=== PATIENT | male | born 1975 | race Caucasian/White ===

== ENCOUNTER 2016-07-02 23:08 | Inpatient (IN) | payer BC, OTHER ==
[~2016-07-02] VITALS: Ht 175.3 cm; Wt 91.0 kg
[~2016-07-02 23:08] MED LIST: DIPH25CA65 PO; MCRK20 PO; NRN/600 PO; OXYC20TA32 PO; OXYC60TA8 PO; RCPAV2 IV; SNK PO; VNCE1000 IV
[2016-07-03 00:19] LABS: BASO % 0.2 %; BASO ABS # 0.01 K/uL (0-0.2); EOS % 5.7 %; HEMATOCRIT 33.3 % (42-52); IG% 0.2 %; LYMPH % 20.5 %; LYMPH ABS # 0.94 K/uL (1.2-3.4); MEAN CELL VOLUME 71.3 fL (80-100); MEAN CORPUSCULAR HEMOGLOBIN 21.8 pg (25-34); MEAN CORPUSCULAR HGB CONC 30.6 g/dl (32-36); MEAN PLATELET VOLUME 9.8 fL (7.4-10.4); MONO % 0.9 %; NEUT % 72.5 %; PLATELET COUNT 281 K/uL (130-400); RED BLOOD COUNT 4.67 M/uL (4.7-6.1); WHITE BLOOD COUNT 4.58 K/uL (4.8-10.8)
[2016-07-03] MEDS ORDERED: SENN-61 PO (00:29)
--- NOTE | 2016-07-03 00:29 | EMERGENCY ROOM VISIT NOTE ---
History Report prepared by Tasneem: Anderson Villalobos Under the Supervision of: Dr. Isabel Ochoa D.O. First contact with patient: 23:33 Chief Complaint: INFECTION Stated Complaint: RT SHOULDER INFECTION,NAUSEA,CHILLS,FEVER Nursing Triage Summary: right shoulder infection. redness, pain. hx of abcess to R shoulder. currently on IV abx. had IV Vancomycin at 1230 today. second abx at 0030 last night. took Tylenol for fever today. pt also took Gabapentin 600 TID today. History of Present Illness The patient is a 40 year old male who presents to the Emergency Room with complaints of constant pain in his right shoulder which he has been dealing with for several months. The patient has had pain in the shoulder with chronic abscesses following an operation. The patient is currently taking 2 mg of Vancomycin and 1 mg of Rocephin daily through a indwelling catheter line that is placed in the left chest. He states that he is taking these antibiotics as prescribed. The patient explains that the pain became much more severe in the past 24 hours. The patient also complains of a fever. The patient has an extensive history of postsurgical abscesses in the right shoulder and sepsis. Source of History: patient Onset: Several months Position: shoulder (right) Timing: constant Associated Symptoms: + fevers Review of Systems See HPI for pertinent positives & negatives. A total of 10 systems reviewed and were otherwise negative. Past Medical & Surgical Medical Problems: (1) Cellulitis of shoulder (2) History of MRSA infection (3) Infection of shoulder (4) Peripheral neuropathy Surgical Problems: (1) H/O shoulder surgery (2) History of dental surgery (3) S/p closure of anal fissure (4) S/p kidney stone removal (5) S/p placement of Patten catheter (6) Status post debridement Family History Cancer Diabetes mellitus Heart disease Hypertension Social History Smoking Status: Never Smoker Alcohol Use: none Drug Use: none Marital Status: Housing Status: lives with family Occupation Status: employed Current/Historical Medications Scheduled Ceftriaxone Sod (Ceftriaxone Sodium), 2 GM IV DAILY Gabapentin (Neurontin), 600 MG PO BID Oxycodone Hcl (Oxycontin), 15 MG PO Q12 Potassium Chloride (Micro-K Ext Rel), 20 MEQ PO BID Senna (Senokot), 17.2 MG PO HS [vancomycin hcl 1000], 2,000 MG IV Q12 Scheduled PRN Diphenhydramine Hcl (Benadryl Allergy), 25 CAP PO DAILY PRN for Itching Oxycodone Hcl (Oxycodone Hcl), 20 MG PO EVERY 4 TO 6 HOURS PRN for Pain Allergies Coded Allergies: Iodinated Diagnostic Agents (Verified Allergy, Severe, anaphylaxis, 07/03/16 ) Levofloxacin (Verified Allergy, Intermediate, RASH, 07/03/16) Patient received Levaquin during a previous admission (2013) but now has a rash with current administration of IV Levaquin Ciprofloxacin (Verified Allergy, Mild, RASH, 07/03/16) Morphine (Verified Allergy, Unknown, hives, 07/03/16) Physical Exam Vital Signs Date Time Temp Pulse Resp B/P Pulse Ox O2 Delivery O2 Flow Rate FiO2 07/03/16 03:20 38.6 07/03/16 02:54 124 20 118/73 93 Room Air 07/03/16 00:54 Room Air 07/03/16 00:51 121 20 120/75 97 Room Air 07/02/16 23:22 37.4 127 20 115/89 99 Room Air Physical Exam General: Patient is diaphoretic and dry-heaving on exam. HEENT: Head - normocephalic and atraumatic Pupils are equal, round, and reactive to light. Extraocular eye muscles are intact, and sclera are anicteric. Nose - moist nasal mucosa without discharge. Mouth - moist buccal mucosa. Oropharynx is nonerythematous and there is no tonsillar exudate or edema noted. Neck: Supple; no JVD, nuchal rigidity, cervical lymphadenopathy. Heart: Tachycardic rate with normal rhythm. There is a normal S1 and S2 with no murmurs, clicks, or gallops appreciated. Chest: Catheter in left chest appears unremarkable. No erythema surrounding. Lungs: Clear to auscultation bilaterally with no wheezes, rales, or rhonchi. Abdomen: Soft, completely nontender, nondistended, with good bowel sounds. There are no palpable pulsatile masses or hepatosplenomegaly. There is no guarding, rigidity, or rebound noted. Extremities: Right shoulder is erythematous around the incision site with fluctuance. The area is exquisitely tender with palpation. No evidence of cyanosis, clubbing, or edema. There are easily palpable peripheral pulses. Skin: warm and diaphoretic with good turgor and no rashes. Medical Decision & Procedures ER Provider Diagnostic Interpretation: Other radiology results as stated below per my review and the radiologist's interpretation: US EXTREMITY: 2.3 x 0.38 x 2.5 cm superficial fluid collection beneath the scar in the lateral shoulder. May be postop seroma or resolving hematoma, cannot exclude infection/developing abscess. Heterogenous region beneath the scar at the proximal upper arm measuring 1.1 x 2.8 x 3.2 cm may be postop changes. No increase vascularity detected. Consider MRI with IV contrast. Radiologist: Eben Benoit M.D. PORTABLE CHEST X-RAY: Mediport in place no other pulmonary findings. Laboratory Results 07/03/16 00:02 Red Blood Count 4.67, Mean Corpuscular Volume 71.3, Mean Corpuscular Hemoglobin 21.8, Mean Corpuscular Hemoglobin Concent 30.6, Mean Platelet Volume 9.8, Neutrophils (%) (Auto) 72.5, Lymphocytes (%) (Auto) 20.5, Monocytes (%) (Auto) 0.9, Eosinophils (%) (Auto) 5.7, Basophils (%) (Auto) 0.2, Neutrophils # (Auto) 3.32, Lymphocytes # (Auto) 0.94, Monocytes # (Auto) 0.04, Eosinophils # (Auto) 0.26, Basophils # (Auto) 0.01 07/03/16 00:02 Test 07/03/16 00:02 07/03/16 00:05 White Blood Count 4.58 K/uL (4.8-10.8) Red Blood Count 4.67 M/uL (4.7-6.1) Hemoglobin 10.2 g/dL (14.0-18.0) Hematocrit 33.3 % (42-52) Mean Corpuscular Volume 71.3 fL (80-100) Mean Corpuscular Hemoglobin 21.8 pg (25-34) Mean Corpuscular Hemoglobin Concent 30.6 g/dl (32-36) Platelet Count 281 K/uL (130-400) Mean Platelet Volume 9.8 fL (7.4-10.4) Neutrophils (%) (Auto) 72.5 % Lymphocytes (%) (Auto) 20.5 % Monocytes (%) (Auto) 0.9 % Eosinophils (%) (Auto) 5.7 % Basophils (%) (Auto) 0.2 % Neutrophils # (Auto) 3.32 K/uL (1.4-6.5) Lymphocytes # (Auto) 0.94 K/uL (1.2-3.4) Monocytes # (Auto) 0.04 K/uL (0.11-0.59) Eosinophils # (Auto) 0.26 K/uL (0-0.5) Basophils # (Auto) 0.01 K/uL (0-0.2) RDW Standard Deviation 41.4 fL (36.4-46.3) RDW Coefficient of Variation 15.9 % (11.5-14.5) Immature Granulocyte % (Auto) 0.2 % Immature Granulocyte # (Auto) 0.01 K/uL (0.00-0.02) Microcytosis PRESENT Ovalocytes 2+ Prothrombin Time 10.7 SECONDS (9.0-12.0) Prothromb Time International Ratio 1.0 (0.9-1.1) Activated Partial Thromboplast Time 20.5 SECONDS (21.0-31.0) Partial Thromboplastin Ratio 0.8 Anion Gap 11.0 mmol/L (3-11) Est Creatinine Clear Calc Drug Dose 103.5 ml/min Estimated GFR () 98.2 Estimated GFR (Non- 84.7 BUN/Creatinine Ratio 13.8 (10-20) Calcium Level 8.2 mg/dl (8.5-10.1) Total Bilirubin 0.4 mg/dl (0.2-1) Aspartate Amino Transf (AST/SGOT) 20 U/L (15-37) Alanine Aminotransferase (ALT/SGPT) 40 U/L (12-78) Alkaline Phosphatase 135 U/L (45-117) Total Protein 7.1 gm/dl (6.4-8.2) Albumin 3.5 gm/dl (3.4-5.0) Globulin 3.6 gm/dl (2.5-4.0) Albumin/Globulin Ratio 1.0 (0.9-2) Bedside Lactic Acid Venous 1.26 mmol/L (0.90-1.70) Laboratory results per my review. Medications Administered Medications (Trade) Dose Ordered Sig/Diane Route Start Time Stop Time Status Last Admin Dose Admin Ondansetron HCl (Zofran Inj) 4 mg NOW STAT IV 07/03/16 00:31 07/03/16 00:32 DC 07/03/16 00:46 4 MG Hydromorphone HCl (Dilaudid Inj) 2 mg NOW STAT IV 07/03/16 00:31 07/03/16 00:32 DC 07/03/16 00:46 2 MG Hydromorphone HCl (Dilaudid Inj) 2 mg NOW STAT IV 07/03/16 01:28 07/03/16 01:31 DC 07/03/16 01:42 2 MG Ondansetron HCl 4 mg 4 mg NOW STAT IV 07/03/16 01:28 07/03/16 01:31 DC 07/03/16 01:42 4 MG Sodium Chloride (Nss 1000ml) 1,000 ml @ 250 mls/hr Q4H STAT IV 07/03/16 02:40 07/03/16 05:03 DC 07/03/16 03:25 250 MLS/HR Hydromorphone HCl (Dilaudid Inj) 1 mg NOW STAT IV 07/03/16 03:09 07/03/16 03:11 DC 07/03/16 03:24 1 MG Acetaminophen (Tylenol Tab) 1,000 mg NOW STAT PO 07/03/16 03:20 07/03/16 03:21 DC 07/03/16 03:34 1,000 MG Hydromorphone HCl 1 mg 1 mg Q4 PRN IV 07/03/16 03:45 07/17/16 03:44 07/03/16 05:10 1 MG Sodium Chloride (Nss 1000ml) 1,000 ml @ 80 mls/hr [id number] IV 07/03/16 03:45 08/02/16 03:44 07/03/16 05:01 80 MLS/HR Diphenhydramine HCl (Benadryl Inj) 25 mg Q4 PRN IV 07/03/16 03:45 08/02/16 03:44 07/03/16 05:45 25 MG Procedure Medications Ordered: Dilaudid, Zofran, Sodium Chloride, Tylenol. ED Course 0006: This patient was evaluated, and HPI was obtained, by the Medical Student prior to my evaluation. 0017: Past medical records reviewed. The patient was evaluated in room A12. A complete history and physical exam was performed. A septic protocol was performed. 0031: Ordered Dilaudid 2 mg IV, Zofran 4 mg IV. 0109: The patient was reevaluated at this time. He has had no relief of his pain. He rates his current pain as an 8/10 in severity. 0128: I reevaluated the patient at this time, he is experiencing shaking and chills. He has had no relief of his pain. I will get an US of his arm to check for fluid collection. 0129: Ordered Zofran 4 mg IV, Dilaudid 2 mg IV 0240: Ordered Sodium Chloride 1000 mL @ 250 mL/hr IV. 0309: Ordered Dilaudid 1 mg IV. 0311: I discussed the case with Dr. Nickolas Frank, he will evaluate the patient for further treatment. 0320: The patient has spiked a fever. I Ordered Acetaminophen 1000 mg PO. Medical Decision The patient is a 40 year old male who presents to the emergency department with pain in his right shoulder. Differential diagnosis include; Shoulder abscess and sepsis. Laboratory results were reviewed and show; a white count of 4.5, hemoglobin of 10.2, hematocrit of 33.3, 72% neutrophiles, lactic acid of 1.26, normal renal function, normal glucose and normal coagulation studies. The patient's right shoulder is erythematous surrounding the incision with some fluctuance. Ultrasound shows evidence of a fluid collection. The patient presents with tachycardia and fever. The patient is currently receiving vancomycin and Rocephin. The patient's presentation is concerning for recurrent abscess and sepsis. The patient is currently receiving IV Rocephin and vancomycin and has manifested a fever with rigors. He is hemodynamically stable. I discussed the case with the Dayna Dhaliwalist and they will evaluate for further management. Consults Time Called: [phone] Consulting Physician: Dr. Nickolas Frank Returned Call: [phone] I discussed the case with Dr. Nickolas Frank, he will evaluate the patient for further treatment. Impression Primary Impression: Abscess of right shoulder Scribe Attestation The scribe's documentation has been prepared under my direction and personally reviewed by me in its entirety. I confirm that the note above accurately reflects all work, treatment, procedures, and medical decision making performed by me. Departure Information Dispostion Being Evaluated By Hospitalist Referrals No Doctor, Assigned (PCP) Patient Instructions A Signature Page, My [facility]
[2016-07-03 00:30] LABS: PARTIAL THROMBOPLASTIN RATIO 0.8; PROTHROMBIN TIME (PATIENT) 10.7 SECONDS (9.0-12.0)
[2016-07-03] MEDS ORDERED: RCPAV2 IV (00:31)
[2016-07-03] MEDS ORDERED: HYDROmorphone INJ 2 MG/ML SYR/VIAL IV STA ×2 (00:31→01:28)
[2016-07-03] MEDS ORDERED: ONDANSETRON INJ 2 MG/ML 2 ML VIAL IV STA ×2 (00:31→01:28)
[2016-07-03] MEDS ORDERED: VANC1CAP3 IV (00:33)
[2016-07-03] MEDS ORDERED: VANC1CAP3 (00:33)
[2016-07-03] MEDS ORDERED: VANCOMYCIN HCL IV (00:36)
[2016-07-03] MEDS ORDERED: POTA10CA28 PO (00:38)
[2016-07-03 00:39] LABS: BUN/CREATININE RATIO 13.8 (10-20); CALCIUM 8.2 mg/dl (8.5-10.1); CREATININE 1.1 mg/dl (0.60-1.40); POTASSIUM 3.5 mmol/L (3.5-5.1)
[2016-07-03] MEDS ORDERED: OXYC15TA89 PO (00:39)
[2016-07-03 00:50] LABS: COMPLETE YES; MICROCYTOSIS PRESENT; OVALOCYTES 2+
[2016-07-03] MEDS ORDERED: SODIUM CHLORIDE 0.9% 1000ML 1,000 ML IV STA (02:40)
[2016-07-03] MEDS ORDERED: HYDROmorphone INJ 1 MG/ML SYR IV STA (03:09)
[2016-07-03] MEDS ORDERED: ACETAMINOPHEN 500 MG TAB PO STA (03:20)
[2016-07-03] MEDS ORDERED: ALUMINUM/MAGNESIUM/SIMETH (MAALOX MAX) 30 ML UDC PO PRN (03:45)
[2016-07-03] MEDS ORDERED: POLYETHYLENE (MIRALAX) 17 GM PACK PO PRN (03:45)
[2016-07-03] MEDS ORDERED: MAGNESIUM HYDROXIDE SUSP 30 ML UDC PO PRN (03:45)
[2016-07-03] MEDS ORDERED: ACETAMINOPHEN 325 MG TAB PO PRN (03:45)
--- NOTE | 2016-07-03 04:00 | History and Physical ---
History & Physical Date & Time of Service: Jul 03, 2016 at 03:52 Chief Complaint: Rt Shoulder Infection,Nausea,Chills,Fever Primary Care Physician: No Doctor, Assigned History of Present Illness Source: patient, clinic records, hospital records This is a 40 year old male with recurrent right shoulder infections; has has multiple surgeries in the past secondary to rotator cuff and biceps tendinopathy ; which led to multiple infections, cellulitis and abscesses, most recently drained in March 2016 - was sent home with IV Vancomycin and IV Rocephin for a total of 6-8 weeks as per ID. States that about 6 days prior, he developed worsening of the shoulder pain, it became warm to touch and stiffer. States that this morning, it worsened and now has became rock solid. He states he spiked a fever at home of 103. Presented here with the shoulder pain and had a fever here as well. U/S of the right upper extremity suggests fluid collection and abscess. Past Medical/Surgical History Medical Problems: (1) History of MRSA infection Status: Chronic (2) Peripheral neuropathy Status: Chronic Surgical Problems: (1) H/O shoulder surgery Status: Resolved (2) History of dental surgery Status: Chronic (3) S/p closure of anal fissure Status: Chronic (4) S/p kidney stone removal Status: Chronic (5) S/p placement of Patten catheter Status: Chronic (6) Status post debridement Status: Chronic Family History Cancer Diabetes mellitus Heart disease Hypertension Social History Smoking Status: Never Smoker Drug Use: none Marital Status: Housing status: lives with significant other Occupational Status: employed Immunizations History of Influenza Vaccine: Unknown History of Tetanus Vaccine?: Unknown History of Pneumococcal: No History of Hepatitis B Vaccine: Unknown Multi-Drug Resistant Organisms History of MDRO: Yes Type of MDRO: VRE, MRSA Allergies Coded Allergies: Iodinated Diagnostic Agents (Verified Allergy, Severe, anaphylaxis, 07/03/16 ) Levofloxacin (Verified Allergy, Intermediate, RASH, 07/03/16) Patient received Levaquin during a previous admission (2013) but now has a rash with current administration of IV Levaquin Ciprofloxacin (Verified Allergy, Mild, RASH, 07/03/16) Morphine (Verified Allergy, Unknown, hives, 07/03/16) Home Medications Scheduled Ceftriaxone Sod (Ceftriaxone Sodium), 2 GM IV DAILY Gabapentin (Neurontin), 600 MG PO BID Oxycodone Hcl (Oxycontin), 15 MG PO Q12 Potassium Chloride (Micro-K Ext Rel), 20 MEQ PO BID Senna (Senokot), 17.2 MG PO HS [vancomycin hcl 1000], 2,000 MG IV Q12 Scheduled PRN Diphenhydramine Hcl (Benadryl Allergy), 25 CAP PO DAILY PRN for Itching Oxycodone Hcl (Oxycodone Hcl), 20 MG PO EVERY 4 TO 6 HOURS PRN for Pain Review of Systems Constitutional: + chills, + fever, No fatigue, No sweats, No weakness Respiratory: No cough, No dyspnea on exertion, No shortness of breath, No sputum Cardiovascular: No chest pain, No edema, No palpitations Abdomen: No constipation, No diarrhea, No nausea, No pain, No vomiting Musculoskeletal: + joint pain (right shoulder), + muscle pain Neurologic: No balance problems Hematologic / Lymphatic: No abnormal bleeding/bruising Integumentary: No rash Physical Exam Vital Signs Date Time Temp Pulse Resp B/P Pulse Ox O2 Delivery O2 Flow Rate FiO2 07/03/16 03:20 38.6 07/03/16 02:54 124 20 118/73 93 Room Air 07/03/16 00:54 Room Air 07/03/16 00:51 121 20 120/75 97 Room Air 07/02/16 23:22 37.4 127 20 115/89 99 Room Air General Appearance: + mild distress (pain at right shoulder) ENT: hearing grossly normal Neck: supple Respiratory/Chest: lungs clear, normal breath sounds, no respiratory distress, no accessory muscle use Cardiovascular: regular rate, rhythm, no edema, no murmur Abdomen/GI: normal bowel sounds, non tender, soft Extremities/Musculoskelatal: + pertinent finding (+post-surgical changes at the right shoulder, warm to touch, firm) Neurologic/Psych: no motor/sensory deficits, alert, normal mood/affect Diagnostics Laboratory Results Results Past 24 Hours Test 07/03/16 00:02 07/03/16 00:05 Range/Units White Blood Count 4.58 4.8-10.8 K/uL Red Blood Count 4.67 4.7-6.1 M/uL Hemoglobin 10.2 14.0-18.0 g/dL Hematocrit 33.3 42-52 % Mean Corpuscular Volume 71.3 80-100 fL Mean Corpuscular Hemoglobin 21.8 25-34 pg Mean Corpuscular Hemoglobin Concent 30.6 32-36 g/dl Platelet Count 281 130-400 K/uL Mean Platelet Volume 9.8 7.4-10.4 fL Neutrophils (%) (Auto) 72.5 % Lymphocytes (%) (Auto) 20.5 % Monocytes (%) (Auto) 0.9 % Eosinophils (%) (Auto) 5.7 % Basophils (%) (Auto) 0.2 % Neutrophils # (Auto) 3.32 1.4-6.5 K/uL Lymphocytes # (Auto) 0.94 1.2-3.4 K/uL Monocytes # (Auto) 0.04 0.11-0.59 K/uL Eosinophils # (Auto) 0.26 0-0.5 K/uL Basophils # (Auto) 0.01 0-0.2 K/uL RDW Standard Deviation 41.4 36.4-46.3 fL RDW Coefficient of Variation 15.9 11.5-14.5 % Immature Granulocyte % (Auto) 0.2 % Immature Granulocyte # (Auto) 0.01 0.00-0.02 K/uL Microcytosis PRESENT Ovalocytes 2+ Prothrombin Time 10.7 9.0-12.0 SECONDS Prothromb Time International Ratio 1.0 0.9-1.1 Activated Partial Thromboplast Time 20.5 21.0-31.0 SECONDS Partial Thromboplastin Ratio 0.8 Sodium Level 143 136-145 mmol/L Potassium Level 3.5 3.5-5.1 mmol/L Chloride Level 105 98-107 mmol/L Carbon Dioxide Level 27 21-32 mmol/L Anion Gap 11.0 3-11 mmol/L Blood Urea Nitrogen 15 7-18 mg/dl Creatinine 1.10 0.60-1.40 mg/dl Est Creatinine Clear Calc Drug Dose 103.5 ml/min Estimated GFR () 98.2 Estimated GFR (Non- 84.7 BUN/Creatinine Ratio 13.8 10-20 Random Glucose 84 70-99 mg/dl Calcium Level 8.2 8.5-10.1 mg/dl Total Bilirubin 0.4 0.2-1 mg/dl Aspartate Amino Transf (AST/SGOT) 20 15-37 U/L Alanine Aminotransferase (ALT/SGPT) 40 12-78 U/L Alkaline Phosphatase 135 45-117 U/L Total Protein 7.1 6.4-8.2 gm/dl Albumin 3.5 3.4-5.0 gm/dl Globulin 3.6 2.5-4.0 gm/dl Albumin/Globulin Ratio 1.0 0.9-2 Bedside Lactic Acid Venous 1.26 0.90-1.70 mmol/L Microbiology Results 07/03/16 Blood Culture, Received Pending 07/03/16 Blood Culture, Received Pending Diagnostic Radiology RUE ultrasound = shoulder abscess Impression Assessment and Plan This is a 40 year old male with recurrent right shoulder infections here secondary to fever and right shoulder pain Recurrent Right Shoulder Infections -->s/p I&D in March 2016 -->has been on IV Vancomycin and IV Rocephin through Patten catheter since then as per ID -->pain worsened - +fever at home -->Ultrasound done = fluid collection noted -->will continue current abx. -->cultures are sent out -->ID consult pending -->ortho consult pending -->pain medications added PRN -->Benadryl PRN for itching -->Tylenol PRN for fevers DVT ppx -->ambulation FULL CODE VTE Prophylaxis VTE Risk Assessment Done? Y/N: Yes Risk Level: Low
[2016-07-03] MEDS ORDERED: CEFTRIAXONE SOD INJ 2,000 MG in DEXTROSE 5% 50ML 50 ML IV STA (04:01)
[2016-07-03] MEDS ORDERED: VANCOMYCIN INJ 2,400 MG in SODIUM CHLORIDE 0.9% 500ML 500 ML IV STA (04:04)
[2016-07-03 04:35] VITALS: BP 109/66; PULSE 107; TEMP 37.8; O2SAT 97; Ht 175.3 cm; Wt 91.0 kg
[2016-07-03] MEDS: SODIUM CHLORIDE 0.9% 1000ML 1,000 ML IV SCH ×2 (05:01→15:16)
[2016-07-03] MEDS: HYDROmorphone INJ 1 MG/ML SYR IV PRN ×5 (05:10→22:42)
[2016-07-03] MEDS: DiphenhydrAMINE HCL 50 MG/ML VIAL IV PRN ×5 (05:45→23:33)
--- NOTE | 2016-07-03 06:41 | DIAGNOSTIC IMAGING REPORT ---
RIGHT SHOULDER ULTRASOUND CLINICAL HISTORY: Pain and swelling. Possible abscess. COMPARISON STUDY: 12/20/2015 FINDINGS: There is a right shoulder incisional scar. There is a superficial fluid collection beneath the scar measuring 23 x 4 x 25 mm. There appears to be a sinus tract extending towards the skin. There is also a nonspecific heterogeneous focus subjacent to the scar measuring 11 x 28 x 32 mm. IMPRESSION: Complex superficial fluid collection beneath the scar of the lateral shoulder measuring 23 x 4 x 25 mm. This could represent a postop seroma, hematoma, or abscess. Electronically signed by: Daniel Cole M.D. 07/03/2016 6:40 AM Dictated Date/Time: 07/03/2016 6:36 AM
--- NOTE | 2016-07-03 06:49 | DIAGNOSTIC IMAGING REPORT ---
CHEST ONE VIEW PORTABLE CLINICAL HISTORY: Sepsis COMPARISON STUDY: 04/20/2016 FINDINGS: The left-sided central venous catheter remains unchanged in position. There is no focal pulmonary consolidation. There is no overt failure. There are no pleural effusions.[ IMPRESSION: No active disease in the chest. Electronically signed by: Daniel Cole M.D. 07/03/2016 6:47 AM Dictated Date/Time: 07/03/2016 6:47 AM
[2016-07-03 07:26] VITALS: BP 123/72; PULSE 97; TEMP 37.4; O2SAT 95
[2016-07-03] MEDS ORDERED: VANCOMYCIN CONSULT ACTIVE PRN (07:30)
[2016-07-03 08:17] VITALS: O2SAT 95
[2016-07-03] MEDS: DOCUSATE SODIUM 100 MG CAP PO SCH ×2 (08:51→20:47)
[2016-07-03] MEDS: POTASSIUM CHLORIDE 10 MEQ TABCR PO SCH ×2 (08:52→20:46)
[2016-07-03] MEDS: GABAPENTIN 600 MG TAB PO SCH ×2 (08:53→20:46)
--- NOTE | 2016-07-03 09:13 | Pharmacy Progress Note ---
Pharmacy Antibiotic Consult Date of Service: Jul 03, 2016. Pharmacy Dosing Scope Pharmacy is consulted to initiate vancomycin IV dosing therapy, order appropriate labs and adjust drug dose/frequency. Subjective The patient is a 40 year old male admitted on Jul 03, 2016 at 03:51. Objective Height (Feet): 5 Height (Inches): 9.00 Weight (Kilograms): 91.000 Lab Results (24hrs): Laboratory Tests Test 07/03/16 00:02 BUN/Creatinine Ratio 13.8 Blood Urea Nitrogen 15 mg/dl Creatinine 1.10 mg/dl White Blood Count 4.58 K/uL Red Blood Count 4.67 M/uL Hemoglobin 10.2 g/dL Hematocrit 33.3 % Mean Corpuscular Volume 71.3 fL Mean Corpuscular Hemoglobin 21.8 pg Mean Corpuscular Hemoglobin Concent 30.6 g/dl Platelet Count 281 K/uL Mean Platelet Volume 9.8 fL Neutrophils (%) (Auto) 72.5 % Lymphocytes (%) (Auto) 20.5 % Monocytes (%) (Auto) 0.9 % Eosinophils (%) (Auto) 5.7 % Basophils (%) (Auto) 0.2 % Neutrophils # (Auto) 3.32 K/uL Lymphocytes # (Auto) 0.94 K/uL Monocytes # (Auto) 0.04 K/uL Eosinophils # (Auto) 0.26 K/uL Basophils # (Auto) 0.01 K/uL Micro Results: Item Value Date Time Blood Culture Received 07/03/16 0002 Blood Pending Blood Culture Received 07/03/16 0030 Blood Pending Assessment & Plan ASSESSMENT: * Patient is a 40 year-old male admitted with a right shoulder abscess (SSTI). * Patient has a HX of post SX abscess in right shoulder, sepsis, and a HX of MDRO of VRE and MRSA. * Patient has had a recent hospital stay and was taking for at least 2 months, per patient, of vancomycin 2g IV q12h and ceftriaxone 1g daily IV for his SSTI. * Pharmacy was consulted to dose the vancomycin IV therapy. Patient is also on ceftriaxone 2g IV daily, per physician management. * Goal trough fo 15-20mcg/ml. * Half-life calculated to be ~8 hrs and Vd to be 0.68L/kg. * ID was consulted on the patient. * BCsx2 are pending in the computer. PLAN: VANCOMYCIN: * Patient did receive a 2400mg IV x 1 dose of a loading dose of vancomycin IV (~ 16mg/kg). * Placed on hold the vancomycin 2g IV q12h (~22mg/kg) until we get the trough level today @1730 30 mins b4 the 1800 vancomycin dose to determine level. Pharmacy will continue to follow and will adjust dose/frequency as necessary. Thank you
--- NOTE | 2016-07-03 11:30 | Medical Consult ---
Consultation Date of Consultation: Jul 03, 2016. 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 Patient was receiving vancomycin and ceftriaxone and was doing well until several days ago, when he noted onset of pain and significant induration in the area of previous infections. No active drainage as with previous episodes. He began to have difficulty elevating his arm, and so eventually came to the hospital and was admitted for further management. He is undergone ultrasound, read by me, which has shown complex collection which is relatively superficial. Blood cultures are negative to date. Currently being treated with vancomycin and ceftriaxone. Denies any current fever. No other new systemic complaints. Past Medical/Surgical History Medical Problems: (1) Abscess of right arm Status: Acute (2) Abscess of right shoulder Status: Acute (3) Cellulitis of shoulder Status: Acute (4) Fever Status: Acute (5) Hypotension Status: Acute (6) Infection of shoulder Status: Acute (7) Right arm cellulitis Status: Acute (8) Sepsis Status: Acute (9) Sepsis Status: Acute (10) Sepsis Status: Acute (11) Septic arthritis of shoulder, right Status: Acute (12) Septic joint of right shoulder region Status: Acute Medical Problems: (1) Cellulitis of shoulder (2) History of MRSA infection (3) Infection of shoulder (4) Peripheral neuropathy Surgical Problems: (1) H/O shoulder surgery (2) History of dental surgery (3) S/p closure of anal fissure (4) S/p kidney stone removal (5) S/p placement of Patten catheter (6) Status post debridement Family History Cancer Diabetes mellitus Heart disease Hypertension Social History Smoking Status: Never Smoker Drug Use: none Marital Status: Housing Status: lives with family Occupation Status: employed Allergies Coded Allergies: Iodinated Diagnostic Agents (Verified Allergy, Severe, anaphylaxis, 07/03/16 ) Levofloxacin (Verified Allergy, Intermediate, RASH, 07/03/16) Patient received Levaquin during a previous admission (2013) but now has a rash with current administration of IV Levaquin Ciprofloxacin (Verified Allergy, Mild, RASH, 07/03/16) Morphine (Verified Allergy, Unknown, hives, 07/03/16) Current Inpatient Medications Current Inpatient Medications Medications (Trade) Dose Ordered Sig/Diane Route Start Time Stop Time Status Last Admin Dose Admin Acetaminophen (Tylenol Tab) 650 mg Q4H PRN PO 07/03/16 03:45 08/02/16 03:44 Al Hydrox/Mg Hydrox/Simethicone (Maalox Max Susp) 15 ml Q4H PRN PO 07/03/16 03:45 08/02/16 03:44 Magnesium Hydroxide (Milk Of Magnesia Susp) 30 ml Q6H PRN PO 07/03/16 03:45 08/02/16 03:44 Polyethylene (Miralax Powder Packet) 17 gm DAILY PRN PO 07/03/16 03:45 08/02/16 03:44 Ondansetron HCl (Zofran Inj) 4 mg Q6H PRN IV 07/03/16 03:45 08/02/16 03:44 Hydromorphone HCl 1 mg 1 mg Q4 PRN IV 07/03/16 03:45 07/17/16 03:44 07/03/16 10:05 1 MG Sodium Chloride (Nss 1000ml) 1,000 ml @ 80 mls/hr [id number] IV 07/03/16 03:45 08/02/16 03:44 07/03/16 05:01 80 MLS/HR Diphenhydramine HCl 25 mg 25 mg Q4 PRN IV 07/03/16 03:45 08/02/16 03:44 07/03/16 11:07 25 MG Vancomycin HCl 2000 mg/Sodium Chloride 290 ml @ 125 mls/hr Q12H IV 07/03/16 18:00 07/13/16 17:59 Future Hold Ceftriaxone Sodium/Dextrose (Rocephin Inj/D5 50ml) 70 ml @ 100 mls/hr Q24H IV 07/04/16 04:00 07/14/16 03:59 Gabapentin (Neurontin Tab) 600 mg BID PO 07/03/16 09:00 08/02/16 08:59 07/03/16 08:53 600 MG Potassium Chloride (Klor-Con M10) 20 meq BID PO 07/03/16 09:00 08/02/16 08:59 07/03/16 08:52 20 MEQ Senna (Senokot Tab) 17.2 mg HS PO 07/03/16 21:00 08/02/16 20:59 Docusate Sodium (coLACE CAP) 100 mg BID PO 07/03/16 09:00 08/02/16 08:59 Vancomycin HCl (Consult) 1 ea UD PRN N/A 07/03/16 07:30 08/02/16 07:29 Review of Systems Constitutional: + chills, + fever Eyes: No problem reported ENT: No problem reported Respiratory: No problem reported Cardiovascular: No problem reported Abdomen: No problem reported Musculoskeletal: + joint pain, + muscle pain, + swelling Genitourinary - Male: No problem reported Neurologic: No problem reported Psychiatric: No problem reported Endocrine: No problem reported Hematologic / Lymphatic: No problem reported Integumentary: No problem reported Allergic / Immunologic: No problem reported Physical Exam Date Time Temp Pulse Resp B/P Pulse Ox O2 Delivery O2 Flow Rate FiO2 07/03/16 08:17 95 Room Air 07/03/16 07:45 Room Air 07/03/16 07:26 37.4 97 18 123/72 95 Room Air 07/03/16 04:35 37.8 107 18 109/66 97 Room Air 07/03/16 04:12 38.6 124 20 118/73 93 07/03/16 03:20 38.6 07/03/16 02:54 124 20 118/73 93 Room Air 07/03/16 00:54 Room Air 07/03/16 00:51 121 20 120/75 97 Room Air 07/02/16 23:22 37.4 127 20 115/89 99 Room Air General Appearance: WD/WN, no apparent distress Head: normocephalic, atraumatic Eyes: normal inspection, EOMI, sclerae normal ENT: normal ENT inspection, hearing grossly normal, pharynx normal Neck: supple, no adenopathy, thyroid normal, trachea midline Respiratory/Chest: chest non-tender, lungs clear, normal breath sounds, no respiratory distress Cardiovascular: regular rate, rhythm, no gallop, no murmur Abdomen/GI: normal bowel sounds, non tender, soft, no organomegaly Back: normal inspection, no CVA tenderness Extremities/Musculoskelatal: normal capillary refill, + pertinent finding ( right shoulder induration with increased warmth) Neurologic/Psych: alert, oriented x 3 Skin: normal color, no rash Lymphatic: no adenopathy Laboratory Results Date/Time Source Procedure Growth Status 07/03/16 00:30 Blood Blood Culture Pending Received 07/03/16 00:02 Blood Blood Culture Pending Received Last 24 Hours Test 07/03/16 00:02 07/03/16 00:05 White Blood Count 4.58 K/uL Red Blood Count 4.67 M/uL Hemoglobin 10.2 g/dL Hematocrit 33.3 % Mean Corpuscular Volume 71.3 fL Mean Corpuscular Hemoglobin 21.8 pg Mean Corpuscular Hemoglobin Concent 30.6 g/dl Platelet Count 281 K/uL Mean Platelet Volume 9.8 fL Neutrophils (%) (Auto) 72.5 % Lymphocytes (%) (Auto) 20.5 % Monocytes (%) (Auto) 0.9 % Eosinophils (%) (Auto) 5.7 % Basophils (%) (Auto) 0.2 % Neutrophils # (Auto) 3.32 K/uL Lymphocytes # (Auto) 0.94 K/uL Monocytes # (Auto) 0.04 K/uL Eosinophils # (Auto) 0.26 K/uL Basophils # (Auto) 0.01 K/uL RDW Standard Deviation 41.4 fL RDW Coefficient of Variation 15.9 % Immature Granulocyte % (Auto) 0.2 % Immature Granulocyte # (Auto) 0.01 K/uL Microcytosis PRESENT Ovalocytes 2+ Prothrombin Time 10.7 SECONDS Prothromb Time International Ratio 1.0 Activated Partial Thromboplast Time 20.5 SECONDS Partial Thromboplastin Ratio 0.8 Sodium Level 143 mmol/L Potassium Level 3.5 mmol/L Chloride Level 105 mmol/L Carbon Dioxide Level 27 mmol/L Anion Gap 11.0 mmol/L Blood Urea Nitrogen 15 mg/dl Creatinine 1.10 mg/dl Est Creatinine Clear Calc Drug Dose 103.5 ml/min Estimated GFR () 98.2 Estimated GFR (Non- 84.7 BUN/Creatinine Ratio 13.8 Random Glucose 84 mg/dl Calcium Level 8.2 mg/dl Total Bilirubin 0.4 mg/dl Aspartate Amino Transf (AST/SGOT) 20 U/L Alanine Aminotransferase (ALT/SGPT) 40 U/L Alkaline Phosphatase 135 U/L Total Protein 7.1 gm/dl Albumin 3.5 gm/dl Globulin 3.6 gm/dl Albumin/Globulin Ratio 1.0 Bedside Lactic Acid Venous 1.26 mmol/L RIGHT SHOULDER ULTRASOUND CLINICAL HISTORY: Pain and swelling. Possible abscess. COMPARISON STUDY: 12/20/2015 FINDINGS: There is a right shoulder incisional scar. There is a superficial fluid collection beneath the scar measuring 23 x 4 x 25 mm. There appears to be a sinus tract extending towards the skin. There is also a nonspecific heterogeneous focus subjacent to the scar measuring 11 x 28 x 32 mm. IMPRESSION: Complex superficial fluid collection beneath the scar of the lateral shoulder measuring 23 x 4 x 25 mm. This could represent a postop seroma, hematoma, or abscess. Electronically signed by: Daniel Coel M.D. 07/03/2016 6:40 AM Dictated Date/Time: 07/03/2016 6:36 AM The status of this report is Signed. Draft = Not yet reviewed or approved by Radiologist. Signed Assessment & Plan Recurrent right shoulder infection with complex collection on ultrasound. Previously with MRSA, Proteus, and Providencia. Patient to continue on ceftriaxone and vancomycin pending further culture results. Orthopedics to evaluate need for I+D. Will follow.
[2016-07-03 14:12] VITALS: TEMP 37.4
--- NOTE | 2016-07-03 15:00 | CONSULTATION REPORT ---
DATE OF CONSULTATION: 07/03/2016 REASON FOR CONSULT: Infection, right shoulder. HISTORY OF PRESENT ILLNESS: The patient is a 40-year-old white male known to our practice who has a history of chronic right shoulder infection. The patient had surgery in 2012 in the right shoulder and then had a failure of biceps tenodesis procedure. Later on, he developed postoperative infection and since that time, he has developed a chronic infection of his right shoulder that has been treated multiple times. He has been seen in 3 tertiary care centers in the past and states that recently he is still on IV antibiotics for his previous infection in March. He states that he was going about his normal time with his shoulder when approximately a week ago he began noticing some increased discomfort in the right shoulder in the area of the previous incision from his I\T\D and also the shoulder itself. He denies any flu or cold-like symptoms. No nausea or vomiting and then he began running temperatures up to 103 and 104. He noticed that the shoulder became more swollen and has some erythema over the healed incision from his previous I&D in March. It was felt that he needed to be admitted for further workup. He is now here for continued IV antibiotics and workup of his right shoulder infection. PAST MEDICAL HISTORY: Peripheral neuropathy, history of MRSA, renal calculi, question of history of VRE in the past. PAST SURGICAL HISTORY: He has had multiple right shoulder surgeries including irrigation and debridements; initial surgery to the right shoulder in 2012 was biceps tenodesis, distal clavicle excision with also repair of labrum at some point after that. He has had a history of kidney stone retrieval, closure of anal fissure and placement of Patten catheter. FAMILY AND SOCIAL HISTORY: As per admitting history and physical. MEDICATIONS: Ceftriaxone 2 grams IV daily, gabapentin 600 mg p.o. b.i.d., OxyContin 15 mg p.o. q. 12 hours, Micro-K extended release 10 mEq p.o. b.i.d., senna 17.2 mg p.o. at bedtime, vancomycin 2000 mg IV q. 12 hours, diphenhydramine 25 mg p.o. daily p.r.n., oxycodone 20 mg p.o. every 4-6 hours p.r.n. pain. ALLERGIES: IODINATED DIAGNOSTIC AGENTS, LEVOFLOXACIN, CIPROFLOXACIN, AND MORPHINE. REVIEW OF SYSTEMS: As per admitting history and physical. PHYSICAL EXAMINATION: VITAL SIGNS: This morning temperature 37.4, pulse 97, respirations 18, BP 123/72, pulse ox 95 on room air. Of note, when he was admitted last night, pulse was 127 and he had a spike a temp of 38.6. GENERAL: The patient is resting in bed and is in no acute distress, pleasant and cooperative. EXTREMITIES: On examination of his right upper extremity, he has some noted swelling of the right shoulder compared to the left and a well-healed scar from his previous I&D. The scar seems to be somewhat sunken into the shoulder for which he feels is accentuated due to his swelling of the right shoulder. There is some mild erythema over the actual scar itself. There is some slight warmth to it as well. He is tender on palpation over the whole shoulder and extremity over the previous incision where he had his I&D. He has limited range of motion of the shoulder right now with increased pain. He has noted weakness of the right hand strength which he states is normal for him. It has not changed. It is no worse or better than it was since his prior admission. NEUROLOGIC: He again has the hand weakness from his neuropathy and basically has some slight decrease in sensation of the fingers. ASSESSMENT: History of chronic right shoulder infection. IMAGING: An ultrasound was ordered of the right upper extremity showing a 23 x 4 x 25 mm fluid collection beneath the scar tissue. There is a sinus tract extending towards the skin, also a nonspecific heterogenous focus subjacent to the scar measuring 11 x 28 x 32 mm, question of being postop seroma, hematoma or abscess. PLAN: Currently, the patient has been placed on ceftriaxone and vancomycin by medicine service. Dr. Bailey has been in to see the patient and blood cultures have been drawn and are still pending. We are discussing the case further with Dr. Byrd who would like to go ahead and get an MRI of the right shoulder at this time. Final plans to be finalized by Dr. Byrd once MRI is complete. We will continue to follow this patient during his stay. FRANCO
[2016-07-03 15:14] VITALS: BP 128/81; PULSE 97; TEMP 37.2; O2SAT 99
[2016-07-03] MEDS ORDERED: VANCOMYCIN TROUGH ONE (17:30)
[2016-07-03] MEDS ORDERED: VANCOMYCIN INJ 2,000 MG in SODIUM CHLORIDE 0.9% 250ML 250 ML IV SCH (18:00)
[2016-07-03] MEDS ORDERED: NURSING DECISION MEDICATION ORDER SCH (19:30)
--- NOTE | 2016-07-03 19:34 | Progress Note ---
Orthopedic SOAP Note Subjective Date of Service: Jul 03, 2016. Additional Notes: no chills or feeling sick tonight Problem List Medical Problems: (1) Abscess of right arm Status: Acute (2) Abscess of right shoulder Status: Acute (3) Cellulitis of shoulder Status: Acute (4) Fever Status: Acute (5) Hypotension Status: Acute (6) Infection of shoulder Status: Acute (7) Right arm cellulitis Status: Acute (8) Sepsis Status: Acute (9) Sepsis Status: Acute (10) Sepsis Status: Acute (11) Septic arthritis of shoulder, right Status: Acute (12) Septic joint of right shoulder region Status: Acute Objective right shoulder wound mild erythema and induration no tense abscess Date Time Temp Pulse Resp B/P Pulse Ox O2 Delivery O2 Flow Rate FiO2 07/03/16 15:41 Room Air 07/03/16 15:14 37.2 97 18 128/81 99 Room Air 07/03/16 14:12 37.4 07/03/16 08:17 95 Room Air 07/03/16 07:45 Room Air 07/03/16 07:26 37.4 97 18 123/72 95 Room Air 07/03/16 04:35 37.8 107 18 109/66 97 Room Air 07/03/16 04:12 38.6 124 20 118/73 93 07/03/16 03:20 38.6 07/03/16 02:54 124 20 118/73 93 Room Air 07/03/16 00:54 Room Air 07/03/16 00:51 121 20 120/75 97 Room Air 07/02/16 23:22 37.4 127 20 115/89 99 Room Air Laboratory Results 24 Hours: Test 07/03/16 00:02 White Blood Count 4.58 K/uL Red Blood Count 4.67 M/uL Hemoglobin 10.2 g/dL Hematocrit 33.3 % Mean Corpuscular Volume 71.3 fL Mean Corpuscular Hemoglobin 21.8 pg Mean Corpuscular Hemoglobin Concent 30.6 g/dl Platelet Count 281 K/uL Mean Platelet Volume 9.8 fL Neutrophils (%) (Auto) 72.5 % Lymphocytes (%) (Auto) 20.5 % Monocytes (%) (Auto) 0.9 % Eosinophils (%) (Auto) 5.7 % Basophils (%) (Auto) 0.2 % Neutrophils # (Auto) 3.32 K/uL Lymphocytes # (Auto) 0.94 K/uL Monocytes # (Auto) 0.04 K/uL Eosinophils # (Auto) 0.26 K/uL Basophils # (Auto) 0.01 K/uL Prothromb Time International Ratio 1.0 Prothrombin Time 10.7 SECONDS Assessment chronic recurrent infection history, wound recently flared up and ultrasound small residual superficial collection,positive blood cultures gram neg and positive organisms Plan abx per infectious disease possible aspiration of collection vs small incision and drainage if no response to iv abx and any adjustments pending cultures . could aspirate collection but may not culture out anything due to iv abx.
[2016-07-03] MEDS: VANCOMYCIN INJ 1,400 MG in SODIUM CHLORIDE 0.9% 500ML 500 ML IV SCH (20:44)
[2016-07-03] MEDS: SENNA 8.6 MG TAB PO SCH (20:47)
--- NOTE | 2016-07-03 22:16 | DIAGNOSTIC IMAGING REPORT ---
RIGHT SHOULDER MRI HISTORY: Right shoulder fluid collection with pain and swelling. r/o abscess Right TECHNIQUE: Multiplanar multisequence MRI of the right shoulder was performed without contrast. COMPARISON STUDY: Right shoulder ultrasound 07/03/2016. FINDINGS: AC joint: Intact Rotator cuff: Not well visualized due to the motion artifact. Mild increased T2 signal within the distal supraspinatus tendon and at the musculotendinous junction suggestive of a mild tendinopathy. The supraspinatus, subscapularis, and infraspinatus tendons are intact. There is trace fluid within the subacromial/subdeltoid bursa. No definite full-thickness tear identified. Labrum: Not well visualized due to motion artifact. The labrum appears diffusely truncated consistent with circumferential tear/degeneration. Biceps tendon: Not well visualized due to motion artifact. Bones: No fracture or dislocation. Cartilage: Grossly intact. Miscellaneous: Multiple foci of susceptibility artifact surrounding the glenohumeral joint consistent with postoperative change. There is no significant joint effusion. There is a partially visualized subcutaneous fluid deep to the scar at the posterior lateral shoulder. This is superficial to the deltoid muscle. This measures approximately 2.5 x 0.5 cm. Mild edema within the deltoid muscle. IMPRESSION: 1. Partially imaged 2.5 x 0.5 cm subcutaneous fluid collection deep to the scar within the posterior lateral shoulder which does not appear to be significantly changed. This is superficial to the deltoid muscle. This favors a small postoperative seroma. Of note an infected fluid collection cannot be excluded by MRI. 2. No joint effusion. 3. Difficult evaluation of the right shoulder due to motion artifact. There appears to be mild supraspinatus tendinopathy without evidence for full-thickness tear. Trace fluid at the subacromial/subdeltoid bursa favors a mild bursitis. 4. Circumferential tear/degeneration of the labrum. 5. Mild edema within the deltoid muscle which is nonspecific. This could be due to postoperative change or a myositis. Electronically signed by: Eddie Vizcarra M.D. 07/03/2016 10:14 PM Dictated Date/Time: 07/03/2016 10:03 PM
[2016-07-03 23:25] VITALS: BP 115/68; PULSE 86; TEMP 37.6; O2SAT 98
[2016-07-04] VITALS (7 sets, daily range): BP systolic 102–117; BP diastolic 64–74; PULSE 71–77; TEMP 36.8–37.2; O2SAT 90–99
[2016-07-04] MEDS: SODIUM CHLORIDE 0.9% 1000ML 1,000 ML IV SCH ×2 (04:20→18:21)
[2016-07-04] MEDS: CEFTRIAXONE SOD INJ 2,000 MG in DEXTROSE 5% 50ML 50 ML IV SCH (04:20)
[2016-07-04] MEDS: VANCOMYCIN INJ 1,400 MG in SODIUM CHLORIDE 0.9% 500ML 500 ML IV SCH ×2 (05:37→16:24)
[2016-07-04] MEDS: HYDROmorphone INJ 1 MG/ML SYR IV PRN ×5 (05:40→22:38)
[2016-07-04] MEDS: DiphenhydrAMINE HCL 50 MG/ML VIAL IV PRN ×5 (05:41→22:38)
[2016-07-04 06:57] LABS: CREATININE 0.88 mg/dl (0.60-1.40)
[2016-07-04] MEDS: DOCUSATE SODIUM 100 MG CAP PO SCH ×2 (09:00→21:00)
[2016-07-04] MEDS: POTASSIUM CHLORIDE 10 MEQ TABCR PO SCH ×2 (09:46→21:29)
[2016-07-04] MEDS: GABAPENTIN 600 MG TAB PO SCH ×2 (09:47→21:29)
--- NOTE | 2016-07-04 13:31 | Orthopedic Progress Note ---
Orthopedic Progress Note Date of Service Jul 04, 2016. Subjective Reports: feeling well, pain controlled w PO medications, Denies: SOB, chest pain , complaints, light headedness, nausea / vomiting Additional Notes: states redness is about the same, no pain in forearm/hand/wrist. denies N/T Objective N/V intact mild erythema around lateral incision, other portals benign, no drainage noted. NVDI, no streaking, no tenderness below mid humerus and distal. Date Time Temp Pulse Resp B/P Pulse Ox O2 Delivery O2 Flow Rate FiO2 07/04/16 10:16 98 Room Air 07/04/16 07:49 37.0 77 18 102/64 90 Room Air 07/04/16 05:41 36.8 07/03/16 23:25 37.6 86 16 115/68 98 Room Air 07/03/16 20:45 Room Air 07/03/16 15:41 Room Air 07/03/16 15:14 37.2 97 18 128/81 99 Room Air 07/03/16 14:12 37.4 Assessment & Plan Assessment: chronic recurrent infection history, wound recently flared up and ultrasound small residual superficial collection,positive blood cultures gram neg and positive organisms Plan: Case to be discussed with dr malhotra who is reviewing his MRI, to decide on either aspiration vs small I&D repeat if no response to IV Abx, currently on Rocephin and Vanco. will cont to check him clinically.
--- NOTE | 2016-07-04 18:19 | Progress Note ---
Medicine Progress Note Date & Time of Visit: Jul 04, 2016 at 11:49. (Floridalma Friedman PA-C) Subjective Patient seen and examined. He was admitted early yesterday morning (07/03) for recurrent right shoulder infection. He reports worsened pain and swelling to the right shoulder for 1 week prior which became more severe on day of admission. His current inpatient Dilaudid regimen helps but pain returns 2 hours after administrated rated 8/10. He is on chronic oxycodone at home. States he is used to being in pain and has multiple shoulder infections and surgeries over past 3 years. He notes ROM is chronically decreased. He reports yesterday he was vomiting x 1 due to pain. Appetite is poor but ate some of breakfast without N/V. No chest pain, SOB, abdominal pain, or diarrhea. (Floridalma Firedman PA-C) Objective Last 8 Hrs Date Time Temp Pulse Resp B/P Pulse Ox O2 Delivery O2 Flow Rate FiO2 07/04/16 10:16 98 Room Air 07/04/16 07:49 37.0 77 18 102/64 90 Room Air 07/04/16 05:41 36.8 Physical Exam: General-alert, cooperative 40 year old male, no distress Eyes-anicteric ENT-hearing grossly intact Neck-trachea midline Lungs-CTA bilaterally, no wheezes, crackles, rhonchi Heart-RRR, no murmur Abdomen-soft, nontender, BS normal Extremities- right shoulder trace erythema at the surgical scar, no open area or drainage, + tender to palpation at deltoid muscle, + limited ROM right shoulder due to pain Neuro-alert and oriented x 3, affect normal, exam grossly nonfocal Laboratory Results: Last 24 Hours Test 07/03/16 18:02 07/04/16 05:33 Vancomycin Level Trough 16.4 mcg/ml Creatinine 0.88 mg/dl Est Creatinine Clear Calc Drug Dose 126.9 ml/min Estimated GFR () 126.3 Estimated GFR (Non- 109.0 (Floridalma Friedman PA-C) Assessment & Plan RIGHT SHOULDER INFECTION History of recurrent right shoulder infections, s/p multiple surgeries, most recently I&D in Mar 2016 Recently on IV Vancomycin and Rocephin via Patten catheter as directed by ID- Dr. Bailey US on admission showed fluid collection MRI obtained- partially imaged 2.5 x 0.5 cm SQ fluid collection deep to scar does not appear significantly changed, superficial to deltoid muscle, possibly postop seroma vs. infected fluid collection; no joint effusion; mild supraspinatus tendinopathy; subacromial/ subdeltoid bursa possible mild bursitis ; circumferential tear/ degeneration fo labrum, mild nonspecific edema of deltoid muscle-possibly postop change or myositis Continued on home abx Ortho consulted; appreciate input- may need aspiration or I&D if no response to abx ID on board; appreciate input Pain control POSITIVE BLOOD CULTURE Blood cultures- 1 bottle positive for enterococcus and gram negative bacilli x 2 Currently on IV Vancomycin and Rocephin Will await ID opinion DVT PROPHYLAXIS Ambulation FULL CODE Patient seen in collaboration with Dr. Cr. Please see her addendum. Current Inpatient Medications: Current Inpatient Medications Medications (Trade) Dose Ordered Sig/Diane Route Start Time Stop Time Status Last Admin Dose Admin Acetaminophen (Tylenol Tab) 650 mg Q4H PRN PO 07/03/16 03:45 08/02/16 03:44 07/03/16 23:34 650 MG Al Hydrox/Mg Hydrox/Simethicone (Maalox Max Susp) 15 ml Q4H PRN PO 07/03/16 03:45 08/02/16 03:44 Magnesium Hydroxide (Milk Of Magnesia Susp) 30 ml Q6H PRN PO 07/03/16 03:45 08/02/16 03:44 Polyethylene (Miralax Powder Packet) 17 gm DAILY PRN PO 07/03/16 03:45 08/02/16 03:44 Ondansetron HCl (Zofran Inj) 4 mg Q6H PRN IV 07/03/16 03:45 08/02/16 03:44 Hydromorphone HCl 1 mg 1 mg Q4 PRN IV 07/03/16 03:45 07/17/16 03:44 07/04/16 09:48 1 MG Sodium Chloride (Nss 1000ml) 1,000 ml @ 80 mls/hr [id number] IV 07/03/16 03:45 08/02/16 03:44 07/04/16 04:20 80 MLS/HR Diphenhydramine HCl 25 mg 25 mg Q4 PRN IV 07/03/16 03:45 08/02/16 03:44 07/04/16 09:48 25 MG Ceftriaxone Sodium/Dextrose (Rocephin Inj/D5 50ml) 70 ml @ 100 mls/hr Q24H IV 07/04/16 04:00 07/14/16 03:59 07/04/16 04:20 100 MLS/HR Gabapentin (Neurontin Tab) 600 mg BID PO 07/03/16 09:00 08/02/16 08:59 07/04/16 09:47 600 MG Potassium Chloride (Klor-Con M10) 20 meq BID PO 07/03/16 09:00 08/02/16 08:59 07/04/16 09:46 20 MEQ Senna (Senokot Tab) 17.2 mg HS PO 07/03/16 21:00 08/02/16 20:59 Docusate Sodium (coLACE CAP) 100 mg BID PO 07/03/16 09:00 08/02/16 08:59 Vancomycin HCl (Consult) 1 ea UD PRN N/A 07/03/16 07:30 08/02/16 07:29 Heparin Sodium (Porcine) 5 ml 5 ml PRN PRN IV 07/03/16 19:45 08/02/16 19:44 Vancomycin HCl/ Sodium Chloride (Vancomycin Inj/ Nss 500ml) 528 ml @ 200 mls/hr Q10H IV 07/03/16 20:00 07/13/16 19:59 07/04/16 05:37 200 MLS/HR (Floridalma Friedman PA-C) Patient denies any complaints other than pain in his right shoulder which he feels indifferent about and states he is used to it. No overnight events noted. No other complaints at this time. Please see above progress note for more details. Resp: CTA B/L Cardiac: RR, S1 and S2 auscultated BACTEREMIA/WITH RIGHT SHOULDER RECURRENT INFECTION: -based on previous cultures, patient was continued on vanco + ceftriaxone -Ortho and ID consulted, appreciate recommendations (Laura Cr, D.O.)
--- NOTE | 2016-07-04 19:14 | Infectious Disease Progress Nt ---
Progress Note Date of Service Jul 04, 2016. Subjective Pt evaluation today including: conversation w/ patient, physical exam, chart review, lab review, review of studies, conversation w/ bus info consultant, review of inpatient medication list Right shoulder pain about the same. Blood cultures now growing enterococcus and gram-negative bacilli. Currently afebrile. Tolerating antibiotics without apparent difficulty. No other new complaints. All Other Systems: Reviewed and Negative Medications Current Inpatient Medications Medications (Trade) Dose Ordered Sig/Diane Route Start Time Stop Time Status Last Admin Dose Admin Acetaminophen (Tylenol Tab) 650 mg Q4H PRN PO 07/03/16 03:45 08/02/16 03:44 07/03/16 23:34 650 MG Al Hydrox/Mg Hydrox/Simethicone (Maalox Max Susp) 15 ml Q4H PRN PO 07/03/16 03:45 08/02/16 03:44 Magnesium Hydroxide (Milk Of Magnesia Susp) 30 ml Q6H PRN PO 07/03/16 03:45 08/02/16 03:44 Polyethylene (Miralax Powder Packet) 17 gm DAILY PRN PO 07/03/16 03:45 08/02/16 03:44 Ondansetron HCl (Zofran Inj) 4 mg Q6H PRN IV 07/03/16 03:45 08/02/16 03:44 Hydromorphone HCl 1 mg 1 mg Q4 PRN IV 07/03/16 03:45 07/17/16 03:44 07/04/16 18:22 1 MG Sodium Chloride (Nss 1000ml) 1,000 ml @ 80 mls/hr [id number] IV 07/03/16 03:45 08/02/16 03:44 07/04/16 18:21 80 MLS/HR Diphenhydramine HCl 25 mg 25 mg Q4 PRN IV 07/03/16 03:45 08/02/16 03:44 07/04/16 18:25 25 MG Ceftriaxone Sodium/Dextrose (Rocephin Inj/D5 50ml) 70 ml @ 100 mls/hr Q24H IV 07/04/16 04:00 07/14/16 03:59 07/04/16 04:20 100 MLS/HR Gabapentin (Neurontin Tab) 600 mg BID PO 07/03/16 09:00 08/02/16 08:59 07/04/16 09:47 600 MG Potassium Chloride (Klor-Con M10) 20 meq BID PO 07/03/16 09:00 08/02/16 08:59 07/04/16 09:46 20 MEQ Senna (Senokot Tab) 17.2 mg HS PO 07/03/16 21:00 08/02/16 20:59 Docusate Sodium (coLACE CAP) 100 mg BID PO 07/03/16 09:00 08/02/16 08:59 Vancomycin HCl (Consult) 1 ea UD PRN N/A 07/03/16 07:30 08/02/16 07:29 Heparin Sodium (Porcine) 5 ml 5 ml PRN PRN IV 07/03/16 19:45 08/02/16 19:44 Vancomycin HCl/ Sodium Chloride (Vancomycin Inj/ Nss 500ml) 528 ml @ 200 mls/hr Q10H IV 07/03/16 20:00 07/13/16 19:59 07/04/16 16:24 200 MLS/HR Oxycodone HCl (Oxycontin Tab) 15 mg Q12 PO 07/04/16 21:00 07/18/16 20:59 Objective Vital Signs Date Time Temp Pulse Resp B/P Pulse Ox O2 Delivery O2 Flow Rate FiO2 07/04/16 16:00 98 Room Air 07/04/16 15:42 37.2 77 18 117/73 98 Room Air 07/04/16 10:16 98 Room Air 07/04/16 07:49 37.0 77 18 102/64 90 Room Air 07/04/16 05:41 36.8 07/03/16 23:25 37.6 86 16 115/68 98 Room Air 07/03/16 20:45 Room Air Physical Exam General Appearance: WD/WN, no apparent distress Eyes: normal inspection, EOMI, sclerae normal ENT: normal ENT inspection, hearing grossly normal, pharynx normal Neck: supple, no adenopathy, trachea midline Respiratory/Chest: chest non-tender, lungs clear, normal breath sounds, no respiratory distress Cardiovascular: regular rate, rhythm, no gallop, no murmur Abdomen: normal bowel sounds, non tender, soft, no organomegaly Extremities: non-tender, no calf tenderness, normal capillary refill Neurologic/Psychiatric: alert, oriented x 3 Skin: normal color, no rash, + pertinent finding ( Right shoulder induration) Lymphatic: no adenopathy Laboratory Results Last 24 Hours Test 07/04/16 05:33 Creatinine 0.88 mg/dl Est Creatinine Clear Calc Drug Dose 126.9 ml/min Estimated GFR () 126.3 Estimated GFR (Non- 109.0 Assessment and Plan ,Recurrent right shoulder infection with complex collection on ultrasound with positive blood cultures for both enterococcus and gram-negative bacilli. Patient be continued on IV vancomycin and ceftriaxone pending final identification of g negatives. I will adjust antibiotics once these results are available. Further surgical intervention will discuss with Orthopedics
[2016-07-04] MEDS: SENNA 8.6 MG TAB PO SCH (21:00)
[2016-07-04] MEDS: OXYCODONE HCL 15 MG TABCR (OXYCONTIN) PO SCH (21:30)
[2016-07-05] MEDS ORDERED: VANCOMYCIN TROUGH ONE (01:30)
[2016-07-05] MEDS: DiphenhydrAMINE HCL 50 MG/ML VIAL IV PRN ×5 (02:37→19:25)
[2016-07-05] MEDS: VANCOMYCIN INJ 1,400 MG in SODIUM CHLORIDE 0.9% 500ML 500 ML IV SCH ×3 (02:37→21:43)
[2016-07-05] MEDS: HYDROmorphone INJ 1 MG/ML SYR IV PRN ×5 (02:37→19:25)
[2016-07-05] MEDS: CEFTRIAXONE SOD INJ 2,000 MG in DEXTROSE 5% 50ML 50 ML IV SCH (05:44)
[2016-07-05] MEDS: SODIUM CHLORIDE 0.9% 1000ML 1,000 ML IV SCH ×2 (05:44→18:15)
[2016-07-05 06:42] LABS: HEMATOCRIT 28.4 % (42-52); MEAN CELL VOLUME 72.6 fL (80-100); MEAN CORPUSCULAR HGB CONC 30.3 g/dl (32-36); MEAN PLATELET VOLUME 10.5 fL (7.4-10.4); PLATELET COUNT 252 K/uL (130-400); RED BLOOD COUNT 3.91 M/uL (4.7-6.1); WHITE BLOOD COUNT 8.95 K/uL (4.8-10.8)
[2016-07-05 07:16] LABS: CREATININE 0.93 mg/dl (0.60-1.40)
[2016-07-05 07:17] LABS: BUN/CREATININE RATIO 7.1 (10-20); CALCIUM 7.8 mg/dl (8.5-10.1); POTASSIUM 3.3 mmol/L (3.5-5.1)
[2016-07-05 07:39] VITALS: BP 99/56; PULSE 65; TEMP 36.9; O2SAT 97
[2016-07-05] MEDS ORDERED: POTASSIUM CHLORIDE 20 MEQ TABCR PO ONE (08:30)
[2016-07-05] MEDS: DOCUSATE SODIUM 100 MG CAP PO SCH ×2 (09:00→21:41)
[2016-07-05] MEDS: POTASSIUM CHLORIDE 10 MEQ TABCR PO SCH (09:07)
[2016-07-05] MEDS: GABAPENTIN 600 MG TAB PO SCH ×2 (09:07→21:42)
[2016-07-05] MEDS: OXYCODONE HCL 15 MG TABCR (OXYCONTIN) PO SCH ×2 (09:07→21:43)
--- NOTE | 2016-07-05 09:41 | Pharmacy Progress Note ---
Pharmacy Antibiotic Prog Note Date of Service: Jul 05, 2016. Subjective: The patient is currently receiving VANC 1400mg (~15mg/kg) IV every 10 hours. 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 Objective: Height (Feet): 5 Height (Inches): 9.00 Weight (Kilograms): 91.000 Levels: Item Value Date Time Vancomycin Level Trough 15.4 mcg/ml 07/05/16 0124 Lab Results (24hrs): Laboratory Tests Test 07/05/16 05:26 BUN/Creatinine Ratio 7.1 Blood Urea Nitrogen 7 mg/dl Creatinine 0.93 mg/dl White Blood Count 8.95 K/uL Micro Results: Item Value Date Time Blood Culture - Preliminary Resulted 07/03/16 0030 Blood NO GROWTH TO DATE. 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 Renal function remains stable. VANC-IV: * This drug level is: Therapeutic. No changes at this time. * Continue VANC 1400mg (~15mg/kg) IV every 10 hours. * Goal trough level estimate: ~ 15 mcg/mL for shoulder abscess. * Will recheck VANC trough in a couple days. Pharmacy will continue to follow and will adjust dose/frequency as necessary. Thank you
--- NOTE | 2016-07-05 10:19 | Progress Note ---
Medicine Progress Note Date & Time of Visit: Jul 05, 2016 at 09:14. (Floridalma Friedman PA-C) Subjective Patient seen and examined. States his R shoulder pain is about the same. He has chronic tingling of the RUE. Appetite remains poor. He had some of dinner last night. He had mild nausea yesterday but no vomiting. No abdominal pain. BM yesterday was normal. Denies fever, chills, chest pain, SOB. Denies GI or other bleeding. (Floridalma Friedman PA-C) Objective Last 8 Hrs Date Time Temp Pulse Resp B/P Pulse Ox O2 Delivery O2 Flow Rate FiO2 07/05/16 08:00 Room Air 07/05/16 07:39 36.9 65 16 99/56 97 Room Air 07/05/16 01:58 Room Air Physical Exam: General-alert, cooperative 40 year old male, lying in bed, no distress Eyes-anicteric ENT-hearing grossly intact Neck-trachea midline Lungs-CTA bilaterally, no wheezes, crackles, rhonchi Heart-RRR, no murmur Abdomen-soft, nontender, BS normal Extremities- right shoulder trace erythema at the surgical scar, no open area or drainage, + tender to palpation around surgical scar, + limited ROM right shoulder due to pain Neuro-alert and oriented x 3, affect normal, exam grossly nonfocal Laboratory Results: Last 24 Hours Test 07/05/16 01:24 07/05/16 05:26 Vancomycin Level Trough 15.4 mcg/ml White Blood Count 8.95 K/uL Red Blood Count 3.91 M/uL Hemoglobin 8.6 g/dL Hematocrit 28.4 % Mean Corpuscular Volume 72.6 fL Mean Corpuscular Hemoglobin 22.0 pg Mean Corpuscular Hemoglobin Concent 30.3 g/dl RDW Standard Deviation 43.8 fL RDW Coefficient of Variation 16.3 % Platelet Count 252 K/uL Mean Platelet Volume 10.5 fL Sodium Level 144 mmol/L Potassium Level 3.3 mmol/L Chloride Level 110 mmol/L Carbon Dioxide Level 26 mmol/L Anion Gap 8.0 mmol/L Blood Urea Nitrogen 7 mg/dl Creatinine 0.93 mg/dl Est Creatinine Clear Calc Drug Dose 120.1 ml/min Estimated GFR () 120.3 Estimated GFR (Non- 103.8 BUN/Creatinine Ratio 7.1 Random Glucose 116 mg/dl Calcium Level 7.8 mg/dl (Floridalma Friedman, PA-C) Assessment & Plan RIGHT SHOULDER INFECTION History of recurrent right shoulder infections, s/p multiple surgeries, most recently I&D in Mar 2016 Recently on IV Vancomycin and Rocephin via Patten catheter as directed by ID- Dr. Bailey US on admission showed fluid collection MRI obtained- partially imaged 2.5 x 0.5 cm SQ fluid collection deep to scar does not appear significantly changed, superficial to deltoid muscle, possibly postop seroma vs. infected fluid collection; no joint effusion; mild supraspinatus tendinopathy; subacromial/ subdeltoid bursa possible mild bursitis ; circumferential tear/ degeneration fo labrum, mild nonspecific edema of deltoid muscle-possibly postop change or myositis Continued on home IV Vancomycin and Rocephin Ortho consulted; appreciate input- will be NPO after midnight- planned for superficial I&D, culture, possible antibiotics beads or drain ID on board; appreciate input Continue pain control with oxycodone and Dilaudid POSITIVE BLOOD CULTURE Blood cultures- 1 bottle positive for enterococcus and gram negative bacilli x 3 Currently on IV Vancomycin and Rocephin Will await ID opinion once final culture results available HYPOKALEMIA On chronic Klor-con 20 meq BID- increased to 40 meq BID Magnesium is 1.8 Follow PRP ACUTE ON CHRONIC ANEMIA Hg 10.2 -> 8.6 Likely hemodilutional from IVF's Denies any bleeding Not indicated for transfusion Monitor CBC DVT PROPHYLAXIS Ambulation FULL CODE Patient seen in collaboration with Dr. Cr. Please see her addendum. Current Inpatient Medications: Current Inpatient Medications Medications (Trade) Dose Ordered Sig/Diane Route Start Time Stop Time Status Last Admin Dose Admin Acetaminophen (Tylenol Tab) 650 mg Q4H PRN PO 07/03/16 03:45 08/02/16 03:44 07/03/16 23:34 650 MG Al Hydrox/Mg Hydrox/Simethicone (Maalox Max Susp) 15 ml Q4H PRN PO 07/03/16 03:45 08/02/16 03:44 Magnesium Hydroxide (Milk Of Magnesia Susp) 30 ml Q6H PRN PO 07/03/16 03:45 08/02/16 03:44 Polyethylene (Miralax Powder Packet) 17 gm DAILY PRN PO 07/03/16 03:45 08/02/16 03:44 Ondansetron HCl (Zofran Inj) 4 mg Q6H PRN IV 07/03/16 03:45 08/02/16 03:44 Hydromorphone HCl 1 mg 1 mg Q4 PRN IV 07/03/16 03:45 07/17/16 03:44 07/05/16 06:47 1 MG Sodium Chloride (Nss 1000ml) 1,000 ml @ 80 mls/hr [id number] IV 07/03/16 03:45 08/02/16 03:44 07/05/16 05:44 80 MLS/HR Diphenhydramine HCl 25 mg 25 mg Q4 PRN IV 07/03/16 03:45 08/02/16 03:44 07/05/16 06:46 25 MG Ceftriaxone Sodium/Dextrose (Rocephin Inj/D5 50ml) 70 ml @ 100 mls/hr Q24H IV 07/04/16 04:00 07/14/16 03:59 07/05/16 05:44 100 MLS/HR Gabapentin (Neurontin Tab) 600 mg BID PO 07/03/16 09:00 08/02/16 08:59 07/05/16 09:07 600 MG Potassium Chloride (Klor-Con M10) 20 meq BID PO 07/03/16 09:00 08/02/16 08:59 07/05/16 09:07 20 MEQ Senna (Senokot Tab) 17.2 mg HS PO 07/03/16 21:00 08/02/16 20:59 Docusate Sodium (coLACE CAP) 100 mg BID PO 07/03/16 09:00 08/02/16 08:59 Vancomycin HCl (Consult) 1 ea UD PRN N/A 07/03/16 07:30 08/02/16 07:29 Heparin Sodium (Porcine) 5 ml 5 ml PRN PRN IV 07/03/16 19:45 08/02/16 19:44 Vancomycin HCl/ Sodium Chloride (Vancomycin Inj/ Nss 500ml) 528 ml @ 200 mls/hr Q10H IV 07/03/16 20:00 07/13/16 19:59 07/05/16 02:37 200 MLS/HR Oxycodone HCl (Oxycontin Tab) 15 mg Q12 PO 07/04/16 21:00 07/18/16 20:59 07/05/16 09:07 15 MG (Floridalma Friedman, JAD) Agree with the above progress note in its entirety. Patient with ongoing complaints of pain but reports he is used to the level of pain. No overnight events noted. Cardiac: RR, S1 and S2 auscultated Resp: CTA B/L Recurrent Right shoulder infection, Bacteremia: -blood cultures growing multiple organisms -continue current abx vanco + ceftriaxone pending final culture results -ID consulted, are familiar with the patient and his multiple prior infections -Ortho consulted, planning to take patient to the OR tomorrow (Laura Cr, D.O.)
[2016-07-05 15:29] VITALS: BP 134/79; PULSE 77; TEMP 36.9; O2SAT 98
--- NOTE | 2016-07-05 16:10 | Progress Note ---
Orthopedic SOAP Note Subjective Date of Service: Jul 05, 2016. Additional Notes: no appetite doesn't feel well but not septic like early admission Problem List Medical Problems: (1) Abscess of right arm Status: Acute (2) Abscess of right shoulder Status: Acute (3) Cellulitis of shoulder Status: Acute (4) Fever Status: Acute (5) Hypotension Status: Acute (6) Infection of shoulder Status: Acute (7) Right arm cellulitis Status: Acute (8) Sepsis Status: Acute (9) Sepsis Status: Acute (10) Sepsis Status: Acute (11) Septic arthritis of shoulder, right Status: Acute (12) Septic joint of right shoulder region Status: Acute Objective induration mild erythema small pimples around lower incision Date Time Temp Pulse Resp B/P Pulse Ox O2 Delivery O2 Flow Rate FiO2 07/05/16 15:29 36.9 77 16 134/79 98 Room Air 07/05/16 08:00 Room Air 07/05/16 07:39 36.9 65 16 99/56 97 Room Air 07/05/16 01:58 Room Air 07/04/16 23:21 36.9 71 16 117/74 99 Room Air 07/04/16 20:00 36.9 74 16 115/73 96 Room Air Laboratory Results 24 Hours: Test 07/05/16 05:26 Hematocrit 28.4 % Hemoglobin 8.6 g/dL Assessment chronic recurrent infection history, wound recently flared up and ultrasound small residual superficial collection,positive blood cultures gram neg and positive organisms,no improvement ,possible recurrent infection and myositis deltoid Plan will schedule for superficial incision and drainage ,cultures,possible antibiotic beads,or drains
--- NOTE | 2016-07-05 19:48 | Infectious Disease Progress Nt ---
Progress Note Date of Service Jul 05, 2016. Subjective Pt evaluation today including: conversation w/ patient, physical exam, chart review, lab review, review of studies, conversation w/ therapeutic consultant, review of inpatient medication list Orthopedic follow-up noted and discussed. Plans for superficial I&D. Afebrile on current antibiotics. Blood cultures, 1 set, growing enterococcus and gram-negative bacilli. Tolerating therapy thus far. All Other Systems: Reviewed and Negative Medications Current Inpatient Medications Medications (Trade) Dose Ordered Sig/Diane Route Start Time Stop Time Status Last Admin Dose Admin Acetaminophen (Tylenol Tab) 650 mg Q4H PRN PO 07/03/16 03:45 08/02/16 03:44 07/03/16 23:34 650 MG Al Hydrox/Mg Hydrox/Simethicone (Maalox Max Susp) 15 ml Q4H PRN PO 07/03/16 03:45 08/02/16 03:44 Magnesium Hydroxide (Milk Of Magnesia Susp) 30 ml Q6H PRN PO 07/03/16 03:45 08/02/16 03:44 Polyethylene (Miralax Powder Packet) 17 gm DAILY PRN PO 07/03/16 03:45 08/02/16 03:44 Ondansetron HCl (Zofran Inj) 4 mg Q6H PRN IV 07/03/16 03:45 08/02/16 03:44 Hydromorphone HCl 1 mg 1 mg Q4 PRN IV 07/03/16 03:45 07/17/16 03:44 07/05/16 19:25 1 MG Sodium Chloride (Nss 1000ml) 1,000 ml @ 80 mls/hr [id number] IV 07/03/16 03:45 08/02/16 03:44 07/05/16 18:15 80 MLS/HR Diphenhydramine HCl 25 mg 25 mg Q4 PRN IV 07/03/16 03:45 08/02/16 03:44 07/05/16 19:25 25 MG Ceftriaxone Sodium/Dextrose (Rocephin Inj/D5 50ml) 70 ml @ 100 mls/hr Q24H IV 07/04/16 04:00 07/14/16 03:59 07/05/16 05:44 100 MLS/HR Gabapentin (Neurontin Tab) 600 mg BID PO 07/03/16 09:00 08/02/16 08:59 07/05/16 09:07 600 MG Senna (Senokot Tab) 17.2 mg HS PO 07/03/16 21:00 08/02/16 20:59 Docusate Sodium (coLACE CAP) 100 mg BID PO 07/03/16 09:00 08/02/16 08:59 Vancomycin HCl (Consult) 1 ea UD PRN N/A 07/03/16 07:30 08/02/16 07:29 Heparin Sodium (Porcine) 5 ml 5 ml PRN PRN IV 07/03/16 19:45 08/02/16 19:44 Vancomycin HCl/ Sodium Chloride (Vancomycin Inj/ Nss 500ml) 528 ml @ 200 mls/hr Q10H IV 07/03/16 20:00 07/13/16 19:59 07/05/16 11:08 200 MLS/HR Oxycodone HCl (Oxycontin Tab) 15 mg Q12 PO 07/04/16 21:00 07/18/16 20:59 07/05/16 09:07 15 MG Potassium Chloride (Klor-Con Tab) 20 meq BID PO 07/05/16 21:00 07/07/16 20:59 Objective Vital Signs Date Time Temp Pulse Resp B/P Pulse Ox O2 Delivery O2 Flow Rate FiO2 07/05/16 15:29 36.9 77 16 134/79 98 Room Air 07/05/16 15:15 Room Air 07/05/16 08:00 Room Air 07/05/16 07:39 36.9 65 16 99/56 97 Room Air 07/05/16 01:58 Room Air 07/04/16 23:21 36.9 71 16 117/74 99 Room Air 07/04/16 20:00 36.9 74 16 115/73 96 Room Air Physical Exam General Appearance: WD/WN, no apparent distress Eyes: normal inspection, sclerae normal ENT: normal ENT inspection, hearing grossly normal, pharynx normal Neck: supple, no adenopathy, trachea midline Respiratory/Chest: chest non-tender, lungs clear, normal breath sounds, no respiratory distress Cardiovascular: regular rate, rhythm, no gallop, no murmur Abdomen: normal bowel sounds, non tender, soft, no organomegaly Extremities: non-tender, no calf tenderness, + pertinent finding ( Right shoulder swelling) Neurologic/Psychiatric: alert, oriented x 3 Skin: normal color, no rash Lymphatic: no adenopathy Laboratory Results RUN DATE: 07/05/16 [facility] PAGE 1 RUN TIME: 811 Specimen Inquiry PATIENT: ODALYS GALVEZ Zulema LOC: [facility] U # : [id number] AGE/SX: 40/M ROOM: E320 REG : 07/03/[address]: Laura Cr D.O. : 1975 BED: 1 DIS : STATUS: ADM IN TLOC: SPEC #: [id number] RANDA: 07/03/16 STATUS: RES REQ #: [id number] RECD: 07/03/16-[address]: Isabel Ochoa D.O. SOURCE: BLOOD ENTR: [id number]/02/[id number] [facility] DR: Michele Haines M.D. [facility]: ORDERED: BLOOD CULTURE Procedure Result Verified Site BLD CULT Preliminary 07/05/16-811 Organism 1 ENTEROCOCCUS SPECIES SENS SENSITIVITY TO FOLLOW Organism 2 GRAM NEGATIVE BACILLI SENS SENSITIVITY TO FOLLOW Organism 3 GRAM NEGATIVE BACILLI#2 SENS SENSITIVITY TO FOLLOW Organism 4 GRAM NEGATIVE BACILLI#3 SENS SENSITIVITY TO FOLLOW Phoned Positive Blood Culture Gram Stain Report to BHARATH MEDRANO on 07/03/16 At 1433 By [facility]. Results were verbalized back to [facility]. Last 24 Hours Test 07/05/16 01:24 07/05/16 05:26 Vancomycin Level Trough 15.4 mcg/ml White Blood Count 8.95 K/uL Red Blood Count 3.91 M/uL Hemoglobin 8.6 g/dL Hematocrit 28.4 % Mean Corpuscular Volume 72.6 fL Mean Corpuscular Hemoglobin 22.0 pg Mean Corpuscular Hemoglobin Concent 30.3 g/dl RDW Standard Deviation 43.8 fL RDW Coefficient of Variation 16.3 % Platelet Count 252 K/uL Mean Platelet Volume 10.5 fL Sodium Level 144 mmol/L Potassium Level 3.3 mmol/L Chloride Level 110 mmol/L Carbon Dioxide Level 26 mmol/L Anion Gap 8.0 mmol/L Blood Urea Nitrogen 7 mg/dl Creatinine 0.93 mg/dl Est Creatinine Clear Calc Drug Dose 120.1 ml/min Estimated GFR () 120.3 Estimated GFR (Non- 103.8 BUN/Creatinine Ratio 7.1 Random Glucose 116 mg/dl Calcium Level 7.8 mg/dl Magnesium Level 1.8 mg/dl Assessment and Plan ,Recurrent right shoulder infection with complex collection on ultrasound with positive blood cultures for both enterococcus and gram-negative bacilli. Patient be continued on IV vancomycin and ceftriaxone pending final identification of g negatives. I will adjust antibiotics once these results are available. Further surgical intervention will discuss with Orthopedics
[2016-07-05] MEDS: POTASSIUM CHLORIDE 20 MEQ TABCR PO SCH (21:42)
[2016-07-05] MEDS: SENNA 8.6 MG TAB PO SCH (21:42)
[2016-07-05 23:29] VITALS: BP 132/84; PULSE 83; TEMP 37.1; O2SAT 98
[2016-07-06] MEDS: DiphenhydrAMINE HCL 50 MG/ML VIAL IV PRN ×4 (00:13→18:53)
[2016-07-06] MEDS: HYDROmorphone INJ 1 MG/ML SYR IV PRN ×8 (00:14→21:20)
[2016-07-06] MEDS: CEFTRIAXONE SOD INJ 2,000 MG in DEXTROSE 5% 50ML 50 ML IV SCH (04:35)
[2016-07-06 06:42] LABS: BASO % 0.4 %; BASO ABS # 0.04 K/uL (0-0.2); COMPLETE YES; EOS % 8.2 %; IG% 0.4 %; LYMPH % 25.7 %; MEAN CELL VOLUME 70.5 fL (80-100); MEAN CORPUSCULAR HEMOGLOBIN 22.2 pg (25-34); MEAN CORPUSCULAR HGB CONC 31.5 g/dl (32-36); MEAN PLATELET VOLUME 11.3 fL (7.4-10.4); MONO % 7.7 %; NEUT % 57.6 %; PLATELET COUNT 306 K/uL (130-400); RED BLOOD COUNT 4.68 M/uL (4.7-6.1); WHITE BLOOD COUNT 8.94 K/uL (4.8-10.8)
[2016-07-06 07:11] LABS: BUN/CREATININE RATIO 7.8 (10-20); CALCIUM 8.5 mg/dl (8.5-10.1); CREATININE 0.94 mg/dl (0.60-1.40); POTASSIUM 3.7 mmol/L (3.5-5.1)
[2016-07-06] MEDS: DOCUSATE SODIUM 100 MG CAP PO SCH ×2 (07:11→21:00)
[2016-07-06] MEDS: GABAPENTIN 600 MG TAB PO SCH ×3 (07:11→21:18)
[2016-07-06] MEDS: POTASSIUM CHLORIDE 20 MEQ TABCR PO SCH ×2 (07:11→21:18)
[2016-07-06] MEDS: OXYCODONE HCL 15 MG TABCR (OXYCONTIN) PO SCH (07:11)
[2016-07-06 07:18] VITALS: BP 111/76; PULSE 71; TEMP 36.7; O2SAT 96
[2016-07-06] MEDS: SODIUM CHLORIDE 0.9% 1000ML 1,000 ML IV SCH ×2 (07:21→18:52)
[2016-07-06] MEDS: VANCOMYCIN INJ 1,400 MG in SODIUM CHLORIDE 0.9% 500ML 500 ML IV SCH (07:21)
[2016-07-06] MEDS: OXYCODONE HCL 20 MG TABCR (OXYCONTIN) PO SCH ×3 (08:05→21:17)
[2016-07-06] MEDS: ERTAPENEM IV 1 GM in SODIUM CHLOR 0.9% AD-VAN 50ML 50 ML IV SCH (10:52)
[2016-07-06] MEDS ORDERED: NURSING VERBAL MED ORDER ONE ×2 (11:30→16:45)
[2016-07-06] MEDS ORDERED: MIDAZOLAM HCL 1 MG/ML 2ML VIAL ONE (12:42)
[2016-07-06] MEDS ORDERED: FENTANYL CITRATE INJ 50 MCG/1 ML 2 ML VIAL ONE (12:42)
[2016-07-06] MEDS ORDERED: ONDANSETRON INJ 2 MG/ML 2 ML VIAL ONE (12:46)
[2016-07-06] MEDS ORDERED: LIDOCAINE HCL 2% 2 ML VIAL (20MG/ML) ONE (12:46)
[2016-07-06] MEDS ORDERED: PROPOFOL IV EMULSION 10 MG/ML 20 ML VIAL IV ONE (12:46)
[2016-07-06] MEDS ORDERED: KETAMINE HCL INJ 50 MG/ML 10 ML VIAL ONE (13:03)
[2016-07-06] MEDS ORDERED: LACTATED RINGER'S 1000ML 1,000 ML IV PRN (13:48)
--- NOTE | 2016-07-06 13:50 | History & Physical Bridge Note ---
H&P Re-Evaluation Bridge Note: I have examined the patient, reviewed the History & Physical and in the interval since the performance of the History & Physical I have noted the following changes of clinical significance: culture pos VRE.
[2016-07-06] MEDS ORDERED: ONDANSETRON INJ 2 MG/ML 2 ML VIAL IV PRN ×2 (14:00→18:30)
[2016-07-06] MEDS ORDERED: DEXAMETHASONE SOD INJ 4 MG/ML VIAL ONE (14:06)
[2016-07-06] MEDS ORDERED: EpHEDrine SULFATE 50MG/5ML SYR ONE (14:31)
[2016-07-06] MEDS ORDERED: GLYCOPYRROLATE INJ 0.2 MG/ML VIAL ONE (14:35)
[2016-07-06] MEDS ORDERED: BACITRACIN 50000 UNIT VIAL IR ONE (14:42)
[2016-07-06] MEDS: FENTANYL CITRATE INJ 50 MCG/1 ML 2 ML VIAL IV PRN ×2 (15:12→15:17)
[2016-07-06] MEDS ORDERED: SODIUM CHLORIDE 0.9% INJ 10 ML VIAL ONE (15:13)
--- NOTE | 2016-07-06 15:25 | [facility] Operative Report ---
Operative Report Operative Date Jul 06, 2016. Pre-Operative Diagnosis Abscess right shoulder Post-Operative Diagnosis no evidence of abscess or significant fluid collection Procedure(s) Performed incision and wound exploration debridement fat and fascia and closure over drains Surgeon Dr Byrd Estimated Blood Loss 10ML Findings no convincing evidence of shoulder infection Specimens Culture #1 right shoulder subcutaneous for aerobic and anaerobic Drains 2 hemovac Anesthesia general Complication(s) None Disposition Recovery Room / PACU Indications possible abscess,new culture of VRE AND RECENT SEPSIS I attest to the content of the Intraoperative Record and any orders documented therein. Any exceptions are noted below.
--- NOTE | 2016-07-06 15:44 | OPERATIVE REPORT ---
DATE OF OPERATION: 07/03/2016 INDICATION FOR PROCEDURE: The patient is a 40-year-old male who has had chronic recurrent infections in his right shoulder. He has had multiple surgeries. He has had chronic adhesive capsulitis. He has had arthroscopic capsular release procedures. He has had a wound infection with gram negative bacteria months after he had an arthroscopic procedure which underwent open I\T\D. This has opened up several times since his procedure and had recurrent I\T\Ds. The last one performed by myself I put in vancomycin antibiotic beads. It seemed to heal quite well and he was completely healed, but still on some long-term antibiotics and now he presents with sepsis again, some increased pain in his shoulder, but there is some erythema and some small pimples in the skin over incisional area but no clear drainage or fluid collection there but MRI demonstrated some superficial, somewhat multiloculated fluid collection. This was also verified by ultrasound and seemed to be superficial under the skin. He also recently cultured out for VRE so we felt all that being said, recommendation was to go ahead and open up the wound and explore it. PREOPERATIVE DIAGNOSIS: Complex chronic right shoulder pain, adhesive capsulitis, status post multiple surgeries, status post I\T\D abscess, status post placement of antibiotic beads, possible recurrent infection with MRI documented fluid collection and possible myositis with new onset VRE culture positive. POSTOPERATIVE DIAGNOSES: Same with no clear evidence of pus or abscess, typical postoperative changes from prior surgery. No distinct fluid collection identifiable. PROCEDURE: 1. Exploration right shoulder scar in the area of prior abscess with exploration subcutaneous region underlying scar. 2. Irrigation and debridement of fat scar tissue and closure over drains. SURGEON: Dr. Byrd. ADOBE BALL MIXER: None. ANESTHESIA: General. OPERATION AND FINDINGS: OPERATIVE PROCEDURE: The patient was taken to the operating room and anesthetized under general anesthetic. He was placed on a 30 degree beach chair positioner with towel under medial border of his right scapula. Shoulder was examined under anesthesia and he has 150 degrees of forward elevation, 130 degrees of abduction, internal and external rotation to 70 degrees. He had a longitudinal scar over the lateral shoulder with induration of the tissues but no drainage. No open wound at this time. His shoulder was sterilely prepped and draped with ChloraPrep. Then an incision was made through the lower half of the scar in the area of suspected fluid collection based on MRI findings. I incised this scar tissue down to the fascia and inspected the fascial subcutaneous plane. It looked like he just had a normal scar tissue over the outer fascia of the deltoid muscle. There was no sinus tract identifiable. There was no pus. I could not express any pus out of the shoulder deep into the wound. I digitally the plane over the deltoid muscle underlying the upper portion of the scar and posteriorly where there appeared to be a small loculated fluid collection and we could not identify any clear evidence of any pathological fluid collection. There was some generalized edema noted, that is all we could identify. We did culture swab the area and cultured into the muscle through some of the deltoid fibers to assess for any infection in this area. Then, the wound was copiously irrigated with 3 liters of antibiotic solution with bacitracin and then 2 Hemovac drains were placed and the incision was closed with interrupted 4-0 nylon sutures. Xeroform dressings were placed and sterile gauze and foam tape was applied. The patient had estimated blood loss of 10 mL and tolerated the procedure well. I attest to the content of the Intraoperative Record and any orders documented therein. Any exceptio ns are noted below.
--- NOTE | 2016-07-06 16:00 | Anesthesiology Progress Note ---
Anesthesia Post Op Note Date & Time Jul 06, 2016 at 15:59 Vital Signs Pain Intensity: 8 Vital Signs Past 12 Hours Date Time Temp Pulse Resp B/P Pulse Ox O2 Delivery O2 Flow Rate FiO2 07/06/16 15:45 77 16 108/68 94 Room Air 07/06/16 15:35 89 18 85/56 95 Room Air 07/06/16 15:25 79 24 124/67 100 Mask 10 07/06/16 15:15 84 13 127/81 100 Mask 10 07/06/16 15:06 36.7 87 20 125/73 100 Mask 10 07/06/16 13:42 36.7 71 18 103/75 98 Room Air 07/06/16 07:20 Room Air 07/06/16 07:18 36.7 71 16 111/76 96 Room Air Notes Mental Status: alert / awake / arousable, participated in evaluation Pt Amnestic to Procedure: Yes Nausea / Vomiting: adequately controlled Pain: adequately controlled Airway Patency, RR, SpO2: stable & adequate BP & HR: stable & adequate Hydration State: stable & adequate Anesthetic Complications: no major complications apparent Pain unchanged from pre-op.
[2016-07-06 16:10] VITALS: BP 145/72; PULSE 102; TEMP 36.9; O2SAT 91
[2016-07-06 16:39] VITALS: BP 147/92; PULSE 97; TEMP 36.7; O2SAT 92
[2016-07-06] MEDS: ONDANSETRON INJ 2 MG/ML 2 ML VIAL IV PRN (16:43)
[2016-07-06] MEDS: OXYCODONE/ACETAMINOPHEN 5-325 TAB PO PRN (16:43)
--- NOTE | 2016-07-06 18:05 | Progress Note ---
Medicine Progress Note Date & Time of Visit: Jul 06, 2016 at 10:44. (Floridalma Friedman PA-C) Subjective Patient seen and examined. He states shoulder pain is about the same. Appetite remains poor. Energy level is OK. Denies fevers, chills, chest pain, SOB, abdominal pain, N/V. He is planned for procedure by ortho sometime today. (Floridalma Friedman PA-C) Objective Last 8 Hrs Date Time Temp Pulse Resp B/P Pulse Ox O2 Delivery O2 Flow Rate FiO2 07/06/16 07:20 Room Air 07/06/16 07:18 36.7 71 16 111/76 96 Room Air Physical Exam: General-alert, cooperative 40 year old male, lying in bed, no distress Eyes-anicteric ENT-hearing grossly intact Neck-trachea midline Lungs-CTA bilaterally, no wheezes, crackles, rhonchi Heart-RRR, no murmur Abdomen-soft, nontender, BS normal Extremities- right shoulder mild erythema around the surgical scar, no open area or drainage, + tender to palpation around surgical scar, + limited ROM right shoulder due to pain Neuro-alert and oriented x 3, affect normal, exam grossly nonfocal Laboratory Results: Last 24 Hours Test 07/06/16 06:14 White Blood Count 8.94 K/uL Red Blood Count 4.68 M/uL Hemoglobin 10.4 g/dL Hematocrit 33.0 % Mean Corpuscular Volume 70.5 fL Mean Corpuscular Hemoglobin 22.2 pg Mean Corpuscular Hemoglobin Concent 31.5 g/dl Platelet Count 306 K/uL Mean Platelet Volume 11.3 fL Neutrophils (%) (Auto) 57.6 % Lymphocytes (%) (Auto) 25.7 % Monocytes (%) (Auto) 7.7 % Eosinophils (%) (Auto) 8.2 % Basophils (%) (Auto) 0.4 % Neutrophils # (Auto) 5.14 K/uL Lymphocytes # (Auto) 2.30 K/uL Monocytes # (Auto) 0.69 K/uL Eosinophils # (Auto) 0.73 K/uL Basophils # (Auto) 0.04 K/uL RDW Standard Deviation 41.9 fL RDW Coefficient of Variation 16.2 % Immature Granulocyte % (Auto) 0.4 % Immature Granulocyte # (Auto) 0.04 K/uL Sodium Level 143 mmol/L Potassium Level 3.7 mmol/L Chloride Level 109 mmol/L Carbon Dioxide Level 24 mmol/L Anion Gap 10.0 mmol/L Blood Urea Nitrogen 7 mg/dl Creatinine 0.94 mg/dl Est Creatinine Clear Calc Drug Dose 118.8 ml/min Estimated GFR () 118.7 Estimated GFR (Non- 102.4 BUN/Creatinine Ratio 7.8 Random Glucose 91 mg/dl Calcium Level 8.5 mg/dl (Floridalma Friedman, PAZuly) Assessment & Plan RIGHT SHOULDER INFECTION History of recurrent right shoulder infections, s/p multiple surgeries, most recently I&D in Mar 2016 Recently on IV Vancomycin and Rocephin via Patten catheter as directed by ID- Dr. Bailey US on admission showed fluid collection MRI obtained- partially imaged 2.5 x 0.5 cm SQ fluid collection deep to scar does not appear significantly changed, superficial to deltoid muscle, possibly postop seroma vs. infected fluid collection; no joint effusion; mild supraspinatus tendinopathy; subacromial/ subdeltoid bursa possible mild bursitis ; circumferential tear/ degeneration fo labrum, mild nonspecific edema of deltoid muscle-possibly postop change or myositis Continued on home IV Vancomycin and Rocephin Ortho consulted; appreciate input- s/p incision and wound exploration debridement fat and fascia and closure over drains (POD #0); cx pending ID on board; appreciate input- Abx changed as noted below Continue pain control with oxycodone and Dilaudid POSITIVE BLOOD CULTURE Blood culture x 1 bottle grew VRE and proteus vulgaris Was on IV Vancomycin and Rocephin- > changed to Invanz and Linezolid by ID HYPOKALEMIA Resolved on Klor-con 40 meq BID Follow PRP CHRONIC ANEMIA Hg stable in 10's Monitor CBC DVT PROPHYLAXIS Ambulation FULL CODE Patient seen in collaboration with Dr. Cr. Please see her addendum. Current Inpatient Medications: Current Inpatient Medications Medications (Trade) Dose Ordered Sig/Diane Route Start Time Stop Time Status Last Admin Dose Admin Acetaminophen (Tylenol Tab) 650 mg Q4H PRN PO 07/03/16 03:45 08/02/16 03:44 07/03/16 23:34 650 MG Al Hydrox/Mg Hydrox/Simethicone (Maalox Max Susp) 15 ml Q4H PRN PO 07/03/16 03:45 08/02/16 03:44 Magnesium Hydroxide (Milk Of Magnesia Susp) 30 ml Q6H PRN PO 07/03/16 03:45 08/02/16 03:44 Polyethylene (Miralax Powder Packet) 17 gm DAILY PRN PO 07/03/16 03:45 08/02/16 03:44 Ondansetron HCl (Zofran Inj) 4 mg Q6H PRN IV 07/03/16 03:45 08/02/16 03:44 Hydromorphone HCl 1 mg 1 mg Q4 PRN IV 07/03/16 03:45 07/17/16 03:44 07/06/16 05:54 1 MG Sodium Chloride (Nss 1000ml) 1,000 ml @ 80 mls/hr [id number] IV 07/03/16 03:45 08/02/16 03:44 07/06/16 07:21 80 MLS/HR Diphenhydramine HCl (Benadryl Inj) 25 mg Q4 PRN IV 07/03/16 03:45 08/02/16 03:44 07/06/16 05:54 25 MG Gabapentin (Neurontin Tab) 600 mg BID PO 07/03/16 09:00 08/02/16 08:59 07/05/16 21:42 600 MG Senna (Senokot Tab) 17.2 mg HS PO 07/03/16 21:00 08/02/16 20:59 Docusate Sodium (coLACE CAP) 100 mg BID PO 07/03/16 09:00 08/02/16 08:59 Heparin Sodium (Porcine) (Heparin 100 Unit/ml 5ml Flush) 5 ml PRN PRN IV 07/03/16 19:45 08/02/16 19:44 Potassium Chloride (Klor-Con Tab) 20 meq BID PO 07/05/16 21:00 07/07/16 20:59 07/05/16 21:42 20 MEQ Oxycodone HCl 20 mg 20 mg Q12 PO 07/06/16 09:00 07/20/16 08:59 Ertapenem/Sodium Chloride (Invanz Iv/Nss Ad-Van 50ml) 50 ml @ 120 mls/hr Q24H IV 07/06/16 10:00 07/20/16 09:59 Linezolid (Zyvox Tab) 600 mg BID PO 07/06/16 21:00 07/20/16 20:59 (Floridalma Friedman PA-C) Agree with the above progress note; please see above for more details. Patient seen after surgery, was complaining of nausea and vomiting. States he has a great deal of pain. No other complaints noted. Cardiac: slightly tachy, S1 and S2 auscultated Resp: CTA B/L BACTEREMIA: -with possibly reinfected right shoulder wound, s/p I&D POD#0 -continued on abx pending further culture results -intraop cultures obtained -ID and Ortho consulted, appreciate recs (Laura Cr, D.O.)
[2016-07-06 18:10] VITALS: BP 119/73; PULSE 98; TEMP 36.9; O2SAT 93
[2016-07-06] MEDS ORDERED: HYDROmorphone INJ 1 MG/ML SYR IV STA (18:24)
[2016-07-06 19:02] VITALS: BP 132/93; PULSE 107; TEMP 36.9; O2SAT 95
--- NOTE | 2016-07-06 20:07 | Infectious Disease Progress Nt ---
Progress Note Date of Service Jul 06, 2016. Subjective Pt evaluation today including: conversation w/ patient, physical exam, chart review, lab review, review of studies, conversation w/ performance test consultant, review of inpatient medication list Patient offering no new specific complaints today. Remains afebrile. No evidence of significant collection on exploration of the wound.Cultures of blood have grown resistant enterococcus and Proteus. All Other Systems: Reviewed and Negative Medications Current Inpatient Medications Medications (Trade) Dose Ordered Sig/Diane Route Start Time Stop Time Status Last Admin Dose Admin Acetaminophen (Tylenol Tab) 650 mg Q4H PRN PO 07/03/16 03:45 08/02/16 03:44 07/03/16 23:34 650 MG Al Hydrox/Mg Hydrox/Simethicone (Maalox Max Susp) 15 ml Q4H PRN PO 07/03/16 03:45 08/02/16 03:44 Magnesium Hydroxide (Milk Of Magnesia Susp) 30 ml Q6H PRN PO 07/03/16 03:45 08/02/16 03:44 Polyethylene (Miralax Powder Packet) 17 gm DAILY PRN PO 07/03/16 03:45 08/02/16 03:44 Ondansetron HCl (Zofran Inj) 4 mg Q6H PRN IV 07/03/16 03:45 08/02/16 03:44 07/06/16 16:43 4 MG Hydromorphone HCl 1 mg 1 mg Q4 PRN IV 07/03/16 03:45 07/17/16 03:44 07/06/16 10:53 1 MG Sodium Chloride (Nss 1000ml) 1,000 ml @ 80 mls/hr [id number] IV 07/03/16 03:45 08/02/16 03:44 07/06/16 18:52 80 MLS/HR Diphenhydramine HCl (Benadryl Inj) 25 mg Q4 PRN IV 07/03/16 03:45 08/02/16 03:44 07/06/16 18:53 25 MG Gabapentin (Neurontin Tab) 600 mg BID PO 07/03/16 09:00 08/02/16 08:59 07/06/16 11:37 600 MG Senna (Senokot Tab) 17.2 mg HS PO 07/03/16 21:00 08/02/16 20:59 Docusate Sodium (coLACE CAP) 100 mg BID PO 07/03/16 09:00 08/02/16 08:59 Heparin Sodium (Porcine) (Heparin 100 Unit/ml 5ml Flush) 5 ml PRN PRN IV 07/03/16 19:45 08/02/16 19:44 Potassium Chloride (Klor-Con Tab) 20 meq BID PO 07/05/16 21:00 07/07/16 20:59 07/05/16 21:42 20 MEQ Oxycodone HCl 20 mg 20 mg Q12 PO 07/06/16 09:00 07/20/16 08:59 07/06/16 11:37 20 MG Ertapenem/Sodium Chloride (Invanz Iv/Nss Ad-Van 50ml) 50 ml @ 120 mls/hr Q24H IV 07/06/16 10:00 07/20/16 09:59 07/06/16 10:52 120 MLS/HR Linezolid (Zyvox Tab) 600 mg BID PO 07/06/16 21:00 07/20/16 20:59 Oxycodone/ Acetaminophen (Percocet 5-325MG Tab) `1-2 tabs for pain 1 tab ... Q4H PRN PO 07/06/16 16:45 07/20/16 16:44 07/06/16 16:43 2 TAB Objective Vital Signs Date Time Temp Pulse Resp B/P Pulse Ox O2 Delivery O2 Flow Rate FiO2 07/06/16 19:02 36.9 107 16 132/93 95 Room Air 07/06/16 18:10 36.9 98 16 119/73 93 Room Air 07/06/16 16:39 36.7 97 17 147/92 92 Room Air 07/06/16 16:10 91 Room Air 07/06/16 16:10 36.9 102 20 145/72 91 Room Air 07/06/16 15:55 36.4 90 22 99/63 94 Room Air 07/06/16 15:45 77 16 108/68 94 Room Air 07/06/16 15:35 89 18 85/56 95 Room Air 07/06/16 15:25 79 24 124/67 100 Mask 10 07/06/16 15:15 84 13 127/81 100 Mask 10 07/06/16 15:06 36.7 87 20 125/73 100 Mask 10 07/06/16 13:42 36.7 71 18 103/75 98 Room Air 07/06/16 07:20 Room Air 07/06/16 07:18 36.7 71 16 111/76 96 Room Air 07/06/16 00:20 Room Air 07/05/16 23:29 37.1 83 16 132/84 98 Room Air Physical Exam General Appearance: WD/WN, no apparent distress Eyes: normal inspection, sclerae normal ENT: normal ENT inspection, pharynx normal Neck: supple, no adenopathy, trachea midline Respiratory/Chest: chest non-tender, lungs clear, normal breath sounds, no respiratory distress Cardiovascular: regular rate, rhythm, no gallop, no murmur Abdomen: normal bowel sounds, non tender, soft, no organomegaly Extremities: non-tender, normal capillary refill Neurologic/Psychiatric: alert Skin: normal color, no rash, + pertinent finding (Dressing intact right shoulder) Lymphatic: no adenopathy Laboratory Results Last 24 Hours Test 07/06/16 06:14 White Blood Count 8.94 K/uL Red Blood Count 4.68 M/uL Hemoglobin 10.4 g/dL Hematocrit 33.0 % Mean Corpuscular Volume 70.5 fL Mean Corpuscular Hemoglobin 22.2 pg Mean Corpuscular Hemoglobin Concent 31.5 g/dl Platelet Count 306 K/uL Mean Platelet Volume 11.3 fL Neutrophils (%) (Auto) 57.6 % Lymphocytes (%) (Auto) 25.7 % Monocytes (%) (Auto) 7.7 % Eosinophils (%) (Auto) 8.2 % Basophils (%) (Auto) 0.4 % Neutrophils # (Auto) 5.14 K/uL Lymphocytes # (Auto) 2.30 K/uL Monocytes # (Auto) 0.69 K/uL Eosinophils # (Auto) 0.73 K/uL Basophils # (Auto) 0.04 K/uL RDW Standard Deviation 41.9 fL RDW Coefficient of Variation 16.2 % Immature Granulocyte % (Auto) 0.4 % Immature Granulocyte # (Auto) 0.04 K/uL Sodium Level 143 mmol/L Potassium Level 3.7 mmol/L Chloride Level 109 mmol/L Carbon Dioxide Level 24 mmol/L Anion Gap 10.0 mmol/L Blood Urea Nitrogen 7 mg/dl Creatinine 0.94 mg/dl Est Creatinine Clear Calc Drug Dose 118.8 ml/min Estimated GFR () 118.7 Estimated GFR (Non- 102.4 BUN/Creatinine Ratio 7.8 Random Glucose 91 mg/dl Calcium Level 8.5 mg/dl Assessment and Plan ,Recurrent right shoulder infection with complex collection on ultrasound with positive blood cultures for both resistant Enterococcus and Proteus. Changed to Zyvox plus ertapenem. Wonder about possibility of patient manipulating his line because infection. Will discuss with all involved. Will follow.
[2016-07-06] MEDS: SENNA 8.6 MG TAB PO SCH (21:00)
[2016-07-06] MEDS: LINEZOLID 600 MG TAB PO SCH (21:18)
[2016-07-06 23:58] VITALS: BP 127/80; PULSE 102; TEMP 37.2; O2SAT 100
[2016-07-07] MEDS: OXYCODONE/ACETAMINOPHEN 5-325 TAB PO PRN ×3 (00:21→21:15)
[2016-07-07] MEDS: DiphenhydrAMINE HCL 50 MG/ML VIAL IV PRN ×6 (01:51→23:51)
[2016-07-07] MEDS: HYDROmorphone INJ 1 MG/ML SYR IV PRN ×6 (01:52→23:51)
[2016-07-07 04:15] VITALS: BP 124/70; PULSE 87; TEMP 36.7; O2SAT 95
[2016-07-07] MEDS: SODIUM CHLORIDE 0.9% 1000ML 1,000 ML IV SCH ×2 (06:12→19:29)
[2016-07-07 07:33] VITALS: BP 139/89; PULSE 94; TEMP 36.7; O2SAT 96
--- NOTE | 2016-07-07 08:22 | Orthopedic Progress Note ---
Orthopedic Progress Note Date of Service Jul 07, 2016. Subjective Post OP Day: 1 Reports: feeling well, Denies: SOB, chest pain, complaints, light headedness, nausea / vomiting Additional Notes: Intra op gram stain and cultures pending. Objective N/V intact, capillary refill less than 2 sec., dressing C/D/I, A&O x3 Sling in tact Fingers mobile. Date Time Temp Pulse Resp B/P Pulse Ox O2 Delivery O2 Flow Rate FiO2 07/07/16 07:33 36.7 94 16 139/89 96 Room Air 07/07/16 04:15 36.7 87 16 124/70 95 Room Air 07/07/16 00:11 Room Air 07/06/16 23:58 37.2 102 18 127/80 100 Room Air 07/06/16 19:02 36.9 107 16 132/93 95 Room Air 07/06/16 18:10 36.9 98 16 119/73 93 Room Air 07/06/16 16:39 36.7 97 17 147/92 92 Room Air 07/06/16 16:10 Room Air 07/06/16 16:10 91 Room Air 07/06/16 16:10 36.9 102 20 145/72 91 Room Air 07/06/16 15:55 36.4 90 22 99/63 94 Room Air 07/06/16 15:45 77 16 108/68 94 Room Air 07/06/16 15:35 89 18 85/56 95 Room Air 07/06/16 15:25 79 24 124/67 100 Mask 10 07/06/16 15:15 84 13 127/81 100 Mask 10 07/06/16 15:06 36.7 87 20 125/73 100 Mask 10 07/06/16 13:42 36.7 71 18 103/75 98 Room Air Laboratory Results 24 Hours: Test 07/07/16 08:07 Assessment & Plan Assessment: POD #1 Right shoulder exploration, I&D old surgical scar. chronic recurrent infection history, wound recently flared up and ultrasound small residual superficial collection,positive blood cultures gram neg and positive organisms,no improvement possible recurrent infection and myositis deltoid Plan: On Invanz and Zyvox Await gram stain and cultures Disposition as per primary team and ID Inhouse Planning Pain Management: Percocet, Oxycontin, PO Tylenol Discharge Planning Discharge Planning: home with home health
[2016-07-07] MEDS: DOCUSATE SODIUM 100 MG CAP PO SCH ×2 (09:00→21:00)
[2016-07-07 09:07] LABS: HEMATOCRIT 28.4 % (42-52); MEAN CELL VOLUME 70.6 fL (80-100); MEAN CORPUSCULAR HEMOGLOBIN 21.9 pg (25-34); MEAN PLATELET VOLUME 9.9 fL (7.4-10.4); PLATELET COUNT 272 K/uL (130-400); RED BLOOD COUNT 4.02 M/uL (4.7-6.1); WHITE BLOOD COUNT 11.74 K/uL (4.8-10.8)
[2016-07-07 09:30] LABS: BUN/CREATININE RATIO 12.9 (10-20); CALCIUM 8.3 mg/dl (8.5-10.1); CREATININE 0.96 mg/dl (0.60-1.40); MAGNESIUM 1.9 mg/dl (1.8-2.4); POTASSIUM 3.5 mmol/L (3.5-5.1)
--- NOTE | 2016-07-07 09:30 | Progress Note ---
Medicine Progress Note Date & Time of Visit: Jul 07, 2016 at 09:12. (Floridalma Friedman PA-C) Subjective Patient seen and examined. After undergoing R shoulder debridement yesterday he states R shoulder pain is 8/10. He last received Dilaudid 1 mg around 6 am. He is on OxyContin 20 mg Q12 and Percocet 5-325 two tabs q4 PRN. He reports 1 episode of diarrhea yesterday before surgery which was similar to when he had C. diff in the past. C. diff/ stool cx ordered by assistant housekeeping manager but patient has not had another bowel movement yet for a sample. He had some nausea yesterday but no vomiting. Appetite is poor. He did eat 1 meal yesterday after surgery. He felt subjectively warm and cold overnight, but has been afebrile. He denies chest pain, SOB, abdominal pain, vomiting. He states he has been ambulating in restroom and hallway without issues. (Floridalma Friedman PA-C) Objective Last 8 Hrs Date Time Temp Pulse Resp B/P Pulse Ox O2 Delivery O2 Flow Rate FiO2 07/07/16 07:33 36.7 94 16 139/89 96 Room Air 07/07/16 04:15 36.7 87 16 124/70 95 Room Air Physical Exam: General-alert, cooperative 40 year old male, lying in bed, no distress Eyes-anicteric ENT-hearing grossly intact Neck-trachea midline Lungs-CTA bilaterally, no wheezes, crackles, rhonchi Heart-RRR, no murmur Abdomen-soft, nontender, BS normal Extremities- right shoulder s/p debridement with dressing in place, drain with sanguinous drainage, RUE in sling, right radial pulse 2+, sensation to light touch intact on right fingers, able to move right fingers Neuro-alert and oriented x 3, affect normal, exam grossly nonfocal Laboratory Results: Last 24 Hours Test 07/07/16 08:55 White Blood Count 11.74 K/uL Red Blood Count 4.02 M/uL Hemoglobin 8.8 g/dL Hematocrit 28.4 % Mean Corpuscular Volume 70.6 fL Mean Corpuscular Hemoglobin 21.9 pg Mean Corpuscular Hemoglobin Concent 31.0 g/dl RDW Standard Deviation 42.4 fL RDW Coefficient of Variation 16.1 % Platelet Count 272 K/uL Mean Platelet Volume 9.9 fL Date/Time Source Procedure Growth Status 07/06/16 14:28 Joint Fluid/Space (Synovial) Shoulder, Right Gram Stain - Final Resulted 07/06/16 14:28 Joint Fluid/Space (Synovial) Shoulder, Right Bacterial Culture Pending Resulted (Floridalma Friedman PA-C) Assessment & Plan RIGHT SHOULDER INFECTION History of recurrent right shoulder infections, s/p multiple surgeries, most recently I&D in Mar 2016 US on admission showed fluid collection MRI obtained- partially imaged 2.5 x 0.5 cm SQ fluid collection deep to scar does not appear significantly changed, superficial to deltoid muscle, possibly postop seroma vs. infected fluid collection; no joint effusion; mild supraspinatus tendinopathy; subacromial/ subdeltoid bursa possible mild bursitis ; circumferential tear/ degeneration fo labrum, mild nonspecific edema of deltoid muscle-possibly postop change or myositis Was on IV Vancomycin and Rocephin as outpatient- continued in hospital, then changed to Invanz and Linezolid by ID due to blood cx results Ortho consulted; appreciate input- s/p incision and wound exploration debridement fat and fascia and closure over drains (POD #1); gram stain no organisms, cx pending Continue pain control with Dilaudid 1 mg q4 PRN, Percocet 5-325 two tabs q4 PRN , OxyContin 20 mg q12 POSITIVE BLOOD CULTURE Blood culture x 1 bottle grew VRE and proteus vulgaris Was on IV Vancomycin and Rocephin- > changed to Invanz and Linezolid by ID Appreciate ID input DIARRHEA Reports 1 episode yesterday Stool cx and C. diff ordered but has not produced sample yet HYPOKALEMIA Resolved on Klor-con 40 meq BID Follow PRP- pending for today CHRONIC ANEMIA Hg running 8-10; now 8.8 Not indicated for transfusion at this time Monitor CBC DVT PROPHYLAXIS Ambulation FULL CODE Patient seen in collaboration with Dr. Cr. Please see her addendum. Current Inpatient Medications: Current Inpatient Medications Medications (Trade) Dose Ordered Sig/Diane Route Start Time Stop Time Status Last Admin Dose Admin Acetaminophen (Tylenol Tab) 650 mg Q4H PRN PO 07/03/16 03:45 08/02/16 03:44 07/03/16 23:34 650 MG Al Hydrox/Mg Hydrox/Simethicone (Maalox Max Susp) 15 ml Q4H PRN PO 07/03/16 03:45 08/02/16 03:44 Magnesium Hydroxide (Milk Of Magnesia Susp) 30 ml Q6H PRN PO 07/03/16 03:45 08/02/16 03:44 Polyethylene (Miralax Powder Packet) 17 gm DAILY PRN PO 07/03/16 03:45 08/02/16 03:44 Ondansetron HCl (Zofran Inj) 4 mg Q6H PRN IV 07/03/16 03:45 08/02/16 03:44 07/06/16 16:43 4 MG Hydromorphone HCl 1 mg 1 mg Q4 PRN IV 07/03/16 03:45 07/17/16 03:44 07/07/16 06:13 1 MG Sodium Chloride (Nss 1000ml) 1,000 ml @ 80 mls/hr [id number] IV 07/03/16 03:45 08/02/16 03:44 07/07/16 06:12 80 MLS/HR Diphenhydramine HCl (Benadryl Inj) 25 mg Q4 PRN IV 07/03/16 03:45 08/02/16 03:44 07/07/16 06:12 25 MG Gabapentin (Neurontin Tab) 600 mg BID PO 07/03/16 09:00 08/02/16 08:59 07/06/16 21:18 600 MG Senna (Senokot Tab) 17.2 mg HS PO 07/03/16 21:00 08/02/16 20:59 Docusate Sodium (coLACE CAP) 100 mg BID PO 07/03/16 09:00 08/02/16 08:59 Heparin Sodium (Porcine) (Heparin 100 Unit/ml 5ml Flush) 5 ml PRN PRN IV 07/03/16 19:45 08/02/16 19:44 Potassium Chloride (Klor-Con Tab) 20 meq BID PO 07/05/16 21:00 07/07/16 20:59 07/06/16 21:18 20 MEQ Oxycodone HCl 20 mg 20 mg Q12 PO 07/06/16 09:00 07/20/16 08:59 07/06/16 21:17 20 MG Ertapenem/Sodium Chloride (Invanz Iv/Nss Ad-Van 50ml) 50 ml @ 120 mls/hr Q24H IV 07/06/16 10:00 07/20/16 09:59 07/06/16 10:52 120 MLS/HR Linezolid (Zyvox Tab) 600 mg BID PO 07/06/16 21:00 07/20/16 20:59 07/06/16 21:18 600 MG Oxycodone/ Acetaminophen (Percocet 5-325MG Tab) `1-2 tabs for pain 1 tab ... Q4H PRN PO 07/06/16 16:45 07/20/16 16:44 07/07/16 00:21 2 TAB (Floridalma Friedman PA-C) Attending addendum: Patient reports ongoing shoulder pain, no other complaints at this time. Discussed the severity of VRE in blood culture and the likely need for his Hickmann catheter to get changed. Discussed with ID and catheter should be removed and cultured. Cardiac: RR, S1 and S2 auscultated Resp: CTA B/L BACTEREMIA: -06/26 blood cultures grew VRE and multiple proteus species -ID consulted and have changed abx to ertapenem and linezolid -will consult vascular to remove Patten catheter and culture, and replace -patient underwent I&D of right shoulder for suspected infection but no evidence of infection was found, deep cultures were obtained and are pending (Laura Cr, D.O.)
[2016-07-07] MEDS: GABAPENTIN 600 MG TAB PO SCH ×2 (10:18→21:16)
[2016-07-07] MEDS: POTASSIUM CHLORIDE 20 MEQ TABCR PO SCH (10:18)
[2016-07-07] MEDS: LINEZOLID 600 MG TAB PO SCH ×2 (10:18→21:17)
[2016-07-07] MEDS: ERTAPENEM IV 1 GM in SODIUM CHLOR 0.9% AD-VAN 50ML 50 ML IV SCH (10:19)
[2016-07-07] MEDS: OXYCODONE HCL 20 MG TABCR (OXYCONTIN) PO SCH ×2 (10:21→21:16)
[2016-07-07 11:16] VITALS: BP 154/84; PULSE 88; TEMP 36.7; O2SAT 99
[2016-07-07 14:57] VITALS: BP 125/77; PULSE 85; TEMP 37; O2SAT 94
--- NOTE | 2016-07-07 19:49 | Infectious Disease Progress Nt ---
Progress Note Date of Service Jul 07, 2016. Subjective Pt evaluation today including: conversation w/ patient, physical exam, chart review, lab review, review of studies, conversation w/ advanced manufacturing consultant, review of inpatient medication list Offers no new complaints today. Had incision and drainage, with no purulence found. Cultures negative today. Tolerating antibiotics without apparent difficulty. Cultures growing resistant enterococcus and Proteus. All Other Systems: Reviewed and Negative Medications Current Inpatient Medications Medications (Trade) Dose Ordered Sig/Diane Route Start Time Stop Time Status Last Admin Dose Admin Acetaminophen (Tylenol Tab) 650 mg Q4H PRN PO 07/03/16 03:45 08/02/16 03:44 07/03/16 23:34 650 MG Al Hydrox/Mg Hydrox/Simethicone (Maalox Max Susp) 15 ml Q4H PRN PO 07/03/16 03:45 08/02/16 03:44 Magnesium Hydroxide (Milk Of Magnesia Susp) 30 ml Q6H PRN PO 07/03/16 03:45 08/02/16 03:44 Polyethylene (Miralax Powder Packet) 17 gm DAILY PRN PO 07/03/16 03:45 08/02/16 03:44 Ondansetron HCl (Zofran Inj) 4 mg Q6H PRN IV 07/03/16 03:45 08/02/16 03:44 07/06/16 16:43 4 MG Hydromorphone HCl 1 mg 1 mg Q4 PRN IV 07/03/16 03:45 07/17/16 03:44 07/07/16 19:29 1 MG Sodium Chloride (Nss 1000ml) 1,000 ml @ 80 mls/hr [id number] IV 07/03/16 03:45 08/02/16 03:44 07/07/16 19:29 80 MLS/HR Diphenhydramine HCl (Benadryl Inj) 25 mg Q4 PRN IV 07/03/16 03:45 08/02/16 03:44 07/07/16 19:30 25 MG Gabapentin (Neurontin Tab) 600 mg BID PO 07/03/16 09:00 08/02/16 08:59 07/07/16 10:18 600 MG Senna (Senokot Tab) 17.2 mg HS PO 07/03/16 21:00 08/02/16 20:59 Docusate Sodium (coLACE CAP) 100 mg BID PO 07/03/16 09:00 08/02/16 08:59 Heparin Sodium (Porcine) (Heparin 100 Unit/ml 5ml Flush) 5 ml PRN PRN IV 07/03/16 19:45 08/02/16 19:44 Potassium Chloride (Klor-Con Tab) 20 meq BID PO 07/05/16 21:00 07/07/16 20:59 07/07/16 10:18 20 MEQ Oxycodone HCl 20 mg 20 mg Q12 PO 07/06/16 09:00 07/20/16 08:59 07/07/16 10:21 20 MG Ertapenem/Sodium Chloride (Invanz Iv/Nss Ad-Van 50ml) 50 ml @ 120 mls/hr Q24H IV 07/06/16 10:00 07/20/16 09:59 07/07/16 10:19 120 MLS/HR Linezolid (Zyvox Tab) 600 mg BID PO 07/06/16 21:00 07/20/16 20:59 07/07/16 10:18 600 MG Oxycodone/ Acetaminophen (Percocet 5-325MG Tab) `1-2 tabs for pain 1 tab ... Q4H PRN PO 07/06/16 16:45 07/20/16 16:44 07/07/16 14:01 2 TAB Objective Vital Signs Date Time Temp Pulse Resp B/P Pulse Ox O2 Delivery O2 Flow Rate FiO2 07/07/16 16:15 Room Air 07/07/16 14:57 37.0 85 17 125/77 94 Room Air 07/07/16 11:58 Room Air 07/07/16 11:16 36.7 88 16 154/84 99 Room Air 07/07/16 07:33 36.7 94 16 139/89 96 Room Air 07/07/16 04:15 36.7 87 16 124/70 95 Room Air 07/07/16 00:11 Room Air 07/06/16 23:58 37.2 102 18 127/80 100 Room Air Physical Exam General Appearance: WD/WN, no apparent distress Eyes: normal inspection, sclerae normal ENT: normal ENT inspection, hearing grossly normal, pharynx normal Neck: supple, no adenopathy, trachea midline Respiratory/Chest: chest non-tender, lungs clear, normal breath sounds, no respiratory distress Cardiovascular: regular rate, rhythm, no gallop, no murmur Abdomen: normal bowel sounds, non tender, soft, no organomegaly Extremities: non-tender, no calf tenderness, normal capillary refill Neurologic/Psychiatric: alert, normal mood/affect, oriented x 3 Skin: normal color, no rash Lymphatic: no adenopathy Laboratory Results RUN DATE: 07/07/16 [facility] PAGE 1 RUN TIME: 1159 Specimen Inquiry PATIENT: ARELIS GALVEZJESICA Poole LOC: Eduin # : [id number] AGE/SX: 40/M ROOM: [facility] REG : 07/03/[address]: Laura Cr D.O. : 1975 BED: 1 DIS : STATUS: ADM IN TLOC: SPEC #: [id number] RANDA: 07/06/16 STATUS: RES REQ #: [id number] RECD: 07/06/16-[address]: Laura Cr D.OJessie SOURCE: [facility] ENTR: 07/06/16-1435 [facility] DR: Jose Bailey MD SPDESC: SHOULDER,R Jade Olmos, No Doctor, Assigned Kenan Byrd M.D. ORDERED: AER/MAURA CULTSMR Procedure Result Verified Site GRAM STAIN Final 07/07/1632 RESULT NO WBCs SEEN, NO ORGANISMS SEEN OR AER/MAURA CULT Preliminary 07/07/16-115 NO GROWTH TO DATE. 4 Hours Test 07/07/16 08:55 White Blood Count 11.74 K/uL Red Blood Count 4.02 M/uL Hemoglobin 8.8 g/dL Hematocrit 28.4 % Mean Corpuscular Volume 70.6 fL Mean Corpuscular Hemoglobin 21.9 pg Mean Corpuscular Hemoglobin Concent 31.0 g/dl RDW Standard Deviation 42.4 fL RDW Coefficient of Variation 16.1 % Platelet Count 272 K/uL Mean Platelet Volume 9.9 fL Sodium Level 143 mmol/L Potassium Level 3.5 mmol/L Chloride Level 108 mmol/L Carbon Dioxide Level 25 mmol/L Anion Gap 10.0 mmol/L Blood Urea Nitrogen 12 mg/dl Creatinine 0.96 mg/dl Est Creatinine Clear Calc Drug Dose 116.3 ml/min Estimated GFR () 115.7 Estimated GFR (Non- 99.9 BUN/Creatinine Ratio 12.9 Random Glucose 130 mg/dl Calcium Level 8.3 mg/dl Magnesium Level 1.9 mg/dl Assessment and Plan 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 Will need to follow CBC, inflammatory markers, and CMP while on antibiotics. Will discuss with all involved.
[2016-07-07] MEDS: SENNA 8.6 MG TAB PO SCH (21:00)
[2016-07-07 23:32] VITALS: BP 123/84; PULSE 108; TEMP 36.7; O2SAT 98
[2016-07-08] MEDS: HYDROmorphone INJ 1 MG/ML SYR IV PRN ×5 (04:31→22:23)
[2016-07-08] MEDS: DiphenhydrAMINE HCL 50 MG/ML VIAL IV PRN ×5 (04:31→22:22)
[2016-07-08 07:34] VITALS: BP 110/68; PULSE 73; TEMP 36.9; O2SAT 94
[2016-07-08] MEDS: OXYCODONE/ACETAMINOPHEN 5-325 TAB PO PRN ×3 (07:47→21:31)
[2016-07-08] MEDS: DOCUSATE SODIUM 100 MG CAP PO SCH ×2 (09:00→21:00)
[2016-07-08] MEDS: SODIUM CHLORIDE 0.9% 1000ML 1,000 ML IV SCH ×2 (09:10→21:30)
[2016-07-08] MEDS: GABAPENTIN 600 MG TAB PO SCH ×2 (09:12→21:31)
[2016-07-08] MEDS: LINEZOLID 600 MG TAB PO SCH ×2 (09:12→21:32)
[2016-07-08] MEDS: OXYCODONE HCL 20 MG TABCR (OXYCONTIN) PO SCH ×2 (09:12→21:30)
[2016-07-08] MEDS: ERTAPENEM IV 1 GM in SODIUM CHLOR 0.9% AD-VAN 50ML 50 ML IV SCH (09:25)
--- NOTE | 2016-07-08 10:56 | Orthopedic Progress Note ---
Orthopedic Progress Note Date of Service Jul 08, 2016. Subjective Post OP Day: 2 Reports: feeling well, pain controlled w PO medications, Denies: complaints Objective N/V intact, capillary refill less than 2 sec., dressing C/D/I, A&O x3 RUE in sling. No significant erythema noted. Some swelling of the lower upper arm. NV intact RUE. Date Time Temp Pulse Resp B/P Pulse Ox O2 Delivery O2 Flow Rate FiO2 07/08/16 07:34 36.9 73 14 110/68 94 Room Air 07/07/16 23:32 36.7 108 18 123/84 98 Room Air 07/07/16 19:15 Room Air 07/07/16 16:15 Room Air 07/07/16 14:57 37.0 85 17 125/77 94 Room Air 07/07/16 11:58 Room Air 07/07/16 11:16 36.7 88 16 154/84 99 Room Air Assessment & Plan Assessment: POD #2 Right shoulder exploration, I&D old surgical scar. 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
[2016-07-08 16:00] VITALS: BP 134/80; PULSE 95; TEMP 36.7; O2SAT 100
--- NOTE | 2016-07-08 19:10 | Progress Note ---
Medicine Progress Note Date & Time of Visit: Jul 08, 2016 at 18:56. Subjective Patient seen with his at the bedside. They were discussing the multiple surgeries and multiple attempts at different facilities that they have tried to seek surgical care at and were frustrated with the patient's situation and recurrent infections. No new complaints. Occasional diarrhea still present. No overnight events noted. Objective Last 8 Hrs Date Time Temp Pulse Resp B/P Pulse Ox O2 Delivery O2 Flow Rate FiO2 07/08/16 16:00 36.7 95 14 134/80 100 Room Air Physical Exam: GENERAL: Patient is in no acute distress. HEENT: No acute trauma, normocephalic, mucous membranes moist, no nasal congestion, no scleral icterus. NECK: No stridor, trachea is midline. LUNGS: Clear to auscultation bilaterally, no wheeze, no rhonchi, breath sounds equal. HEART: Without murmurs gallops or rubs, regular rate and rhythm. ABDOMEN: Soft, nontender, bowel sounds positive EXTREMITIES: No cyanosis or edema, right shoulder in sling; surgical dressing present, drain absent, limited ROM in right shoulder NEUROLOGIC: Oriented x 3, no acute motor or sensory deficits, no focal weakness. SKIN: No rash, no jaundice, no diaphoresis. Assessment & Plan BACTEREMIA: -Blood culture x 1 bottle grew VRE and proteus sp -suspected source was right shoulder that has had recurrent infections -was on IV Vancomycin and Rocephin as outpatient and earlier part of this admission for prior right shoulder infection, this was changed to ertapenem and Linezolid by ID -ID consulted, recommended removal of Patten catheter and culture -Vascular surgery consulted for catheter removal/replacement SUSPECTED RIGHT SHOULDER INFECTION: -s/p I&D POD #2 -has had recurrent right shoulder infections, s/p multiple surgeries, most recently I&D in Mar 2016 -US on admission showed fluid collection -MRI: partially imaged 2.5 x 0.5 cm SQ fluid collection deep to scar does not appear significantly changed, superficial to deltoid muscle, possibly postop seroma vs. infected fluid collection; no joint effusion; mild supraspinatus tendinopathy; subacromial/ subdeltoid bursa possible mild bursitis; circumferential tear/ degeneration fo labrum, mild nonspecific edema of deltoid muscle-possibly postop change or myositis -was on IV Vancomycin and Rocephin as outpatient -Ortho consulted; appreciate input: s/p incision and wound exploration debridement fat and fascia and closure over drains -intra-op cultures: gram stain no organisms, culture pending -continue pain control with Dilaudid 1 mg q4 PRN, Percocet 5-325 two tabs q4 PRN , OxyContin 20 mg q12 -patient and his are frustrated about recurrence of infections and are trying to get patient to a facility that would be able to perform a reverse shoulder but have not had success with the options thus far DIARRHEA: -reports 1 episode today -stool culture and C.diff ordered HYPOKALEMIA: -replete and recheck CHRONIC ANEMIA: -Hb ranging from 8-10 -monitor and transfuse as needed Current Inpatient Medications: Current Inpatient Medications Medications (Trade) Dose Ordered Sig/Diane Route Start Time Stop Time Status Last Admin Dose Admin Acetaminophen (Tylenol Tab) 650 mg Q4H PRN PO 07/03/16 03:45 08/02/16 03:44 07/03/16 23:34 650 MG Al Hydrox/Mg Hydrox/Simethicone (Maalox Max Susp) 15 ml Q4H PRN PO 07/03/16 03:45 08/02/16 03:44 Magnesium Hydroxide (Milk Of Magnesia Susp) 30 ml Q6H PRN PO 07/03/16 03:45 08/02/16 03:44 Polyethylene (Miralax Powder Packet) 17 gm DAILY PRN PO 07/03/16 03:45 08/02/16 03:44 Ondansetron HCl (Zofran Inj) 4 mg Q6H PRN IV 07/03/16 03:45 08/02/16 03:44 07/06/16 16:43 4 MG Hydromorphone HCl 1 mg 1 mg Q4 PRN IV 07/03/16 03:45 07/17/16 03:44 07/08/16 18:02 1 MG Sodium Chloride (Nss 1000ml) 1,000 ml @ 80 mls/hr [id number] IV 07/03/16 03:45 08/02/16 03:44 07/08/16 09:10 80 MLS/HR Diphenhydramine HCl (Benadryl Inj) 25 mg Q4 PRN IV 07/03/16 03:45 08/02/16 03:44 07/08/16 13:37 25 MG Gabapentin (Neurontin Tab) 600 mg BID PO 07/03/16 09:00 08/02/16 08:59 07/08/16 09:12 600 MG Senna (Senokot Tab) 17.2 mg HS PO 07/03/16 21:00 08/02/16 20:59 Docusate Sodium (coLACE CAP) 100 mg BID PO 07/03/16 09:00 08/02/16 08:59 Heparin Sodium (Porcine) (Heparin 100 Unit/ml 5ml Flush) 5 ml PRN PRN IV 07/03/16 19:45 08/02/16 19:44 Oxycodone HCl 20 mg 20 mg Q12 PO 07/06/16 09:00 07/20/16 08:59 07/08/16 09:12 20 MG Ertapenem/Sodium Chloride (Invanz Iv/Nss Ad-Van 50ml) 50 ml @ 120 mls/hr Q24H IV 07/06/16 10:00 07/20/16 09:59 07/08/16 09:25 120 MLS/HR Linezolid (Zyvox Tab) 600 mg BID PO 07/06/16 21:00 07/20/16 20:59 07/08/16 09:12 600 MG Oxycodone/ Acetaminophen (Percocet 5-325MG Tab) `1-2 tabs for pain 1 tab ... Q4H PRN PO 07/06/16 16:45 07/20/16 16:44 07/08/16 13:38 2 TAB
[2016-07-08] MEDS: SENNA 8.6 MG TAB PO SCH (21:00)
[2016-07-08 23:42] VITALS: BP 124/69; PULSE 89; TEMP 36.7; O2SAT 95
[2016-07-09] MEDS: ONDANSETRON INJ 2 MG/ML 2 ML VIAL IV PRN (02:38)
[2016-07-09] MEDS: DiphenhydrAMINE HCL 50 MG/ML VIAL IV PRN ×4 (02:40→22:13)
[2016-07-09] MEDS: HYDROmorphone INJ 1 MG/ML SYR IV PRN ×4 (02:41→22:10)
[2016-07-09 05:46] LABS: HEMATOCRIT 30.9 % (42-52); MEAN CELL VOLUME 70.4 fL (80-100); MEAN CORPUSCULAR HEMOGLOBIN 21.6 pg (25-34); MEAN CORPUSCULAR HGB CONC 30.7 g/dl (32-36); PLATELET COUNT 336 K/uL (130-400); RED BLOOD COUNT 4.39 M/uL (4.7-6.1); WHITE BLOOD COUNT 10.47 K/uL (4.8-10.8)
[2016-07-09 06:10] LABS: BUN/CREATININE RATIO 17.3 (10-20); CALCIUM 7.6 mg/dl (8.5-10.1); CREATININE 0.92 mg/dl (0.60-1.40); POTASSIUM 3.6 mmol/L (3.5-5.1)
[2016-07-09 07:27] VITALS: BP 102/66; PULSE 84; TEMP 36.5; O2SAT 94
[2016-07-09] MEDS: OXYCODONE HCL 20 MG TABCR (OXYCONTIN) PO SCH ×2 (08:20→20:18)
[2016-07-09] MEDS: OXYCODONE/ACETAMINOPHEN 5-325 TAB PO PRN ×3 (08:21→20:19)
[2016-07-09] MEDS: DOCUSATE SODIUM 100 MG CAP PO SCH ×2 (08:21→20:17)
[2016-07-09] MEDS: LINEZOLID 600 MG TAB PO SCH ×2 (08:21→20:21)
[2016-07-09] MEDS: GABAPENTIN 600 MG TAB PO SCH ×2 (08:22→20:20)
[2016-07-09] MEDS: ERTAPENEM IV 1 GM in SODIUM CHLOR 0.9% AD-VAN 50ML 50 ML IV SCH (10:12)
[2016-07-09] MEDS: SODIUM CHLORIDE 0.9% 1000ML 1,000 ML IV SCH ×2 (10:12→22:10)
--- NOTE | 2016-07-09 10:28 | Medical Consult ---
Consultation Note Consultation Note Chief Complaint Shoulder infection, possible patten catheter infection History of Present Illness The patient is a 40 year old male who has a chronic shoulder infection. Had a patten catheter placed. On antibiotics. Had shoulder exploration which did not show an abscess. Shoulder cultures were negative. Would remove the patten at this time to eliminate it as a source. Allergies Coded Allergies: Iodinated Diagnostic Agents (Verified Allergy, Severe, anaphylaxis, ) Levofloxacin (Verified Allergy, Intermediate, RASH, 04/12/16) Patient received Levaquin during a previous admission (2013) but now has a rash with current administration of IV Levaquin Ciprofloxacin (Verified Allergy, Mild, RASH, 04/12/16) Morphine (Verified Allergy, Unknown, hives, 04/12/16) Surgical / Medical History Hx Cardiac Surgery: No Hx Abdominal Surgery: No Hx Cancer Surgery: No Hx Thoracic Surgery: No Hx Orthopedic: Yes (multiple right shoulder surgeries) Hx Urinary Tract Surgery: No HX Other Surgery: No Family History Cancer Diabetes mellitus Heart disease Hypertension Social History Smoking Status: Never Smoker Hx Tobacco Use In Past Year?: Yes Hx Alcohol Use - Type & Amnt: No Hx Substance Use -Type & Amnt: No Review of Systems Constitutional: + chills, + fever ENMT: No dental pain, No ear discharge, No ear pain, No epistaxis, No gum swelling, No loss of hearing, No mouth pain, No mouth swelling, No nasal congestion, No nasal pain, No problem reported, No rhinorrhea, No sore throat, No stridor, No throat swelling, No tinnitus Respiratory: No GARCIA, No PND, No cough, No cyanosis, No dyspnea, No hemoptysis, No orthopnea, No problem reported, No short of breath, No sputum production, No stridor, No wheezing Cardiovascular: No chest pain, No chest pressure, No chest tightness, No cyanosis, No diaphoresis, No edema, No intermittent claudication, No lightheadedness, No mumur, No orthopnea, No palpitations, No paroxysmal nocturnal dyspnea, No problem reported, No syncope Gastrointestinal: No abdominal pain, No anorexia, No appetite changes, No belching, No constipation, No diarrhea, No dysphagia, No flatulence, No food intolerance, No heartburn, No hematemesis, No hematochezia, No hemorrhoids, No indigestion, No nausea, No problem reported, No rectal bleeding, No stool changes, No vomiting Genitourinary - Male: No difficulty urinating, No hematuria, No impotence, No penile discharge, No penile itching, No problem reported, No rash, No testicular pain, No testicular swelling Musculoskeletal: + joint pain Neurologic: No LOC, No dizziness, No headache, No lethargy, No memory loss, No numbness, No paresthesia, No pre-existing deficit, No problem reported, No seizures, No tics, No tingling, No tremors, No vertigo, No weakness Psychiatric: No alcohol abuse, No anxiety, No auditory hallucinations, No depression, No drug abuse, No homicidal ideation, No mood changes, No problem reported, No suicidal ideation, No visual hallucinations Physical Exam Constitutional: General Apperance: heathly-appearing, well-nourished, well-developed Level of Distress: NAD Ambulation: ambulating normally Psychiatric: Mental Status: active & alert, normal mood, normal affect Orientation: oriented except where noted, to time, to place, to person Memory: recent memory normal, remote memory normal Neck: supple Lungs: Auscultation: breath sounds normal Cardiovascular: Heart Auscultation: RRR Peripheral Pulses: Pulses: full and equal Abdomen: Inspection & Palpation: soft Musculoskeletal: normal, normal strength (5/5 throughout), normal tone Extremities: Upper Right: no cyanosis, no edema, no varicosities, no palpable cord, no clubbing, no ulcers, no mottling, pertinent finding (minimal tenderness right shoulder) Upper Left: no cyanosis, no edema, no palpable cord, no clubbing, no ulcers , no mottling Lower Right: no cyanosis, no edema, no varicosities, no palpable cord, no clubbing, no ulcers, no mottling Lower Left: no cyanosis, no edema, no varicosities, no palpable cord, no clubbing, no ulcers, no mottling Neurologic: Cranial Nerves: grossly intact Sensation: grossly intact Assessment and Plan Imp: Shoulder infection Possible infected Patten Plan: Will plan on removal of patten Sunday. I have discussed the risks options and benefits of the procedure with the patient. The patient understands the risks options and benefits and agrees to the procedure.
--- NOTE | 2016-07-09 11:38 | Orthopedic Progress Note ---
Orthopedic Progress Note Date of Service Jul 09, 2016. Subjective Post OP Day: 3 Reports: feeling well, pain controlled w PO medications, Denies: SOB, calf pain , chest pain, light headedness, nausea / vomiting Objective N/V intact, capillary refill less than 2 sec., dressing C/D/I, A&O x3 RUE: swelling seems to be lessened in the bicep area. No erythema noted. Fingers mobile RUE. Sling in place. Date Time Temp Pulse Resp B/P Pulse Ox O2 Delivery O2 Flow Rate FiO2 07/09/16 08:30 Room Air 07/09/16 07:27 36.5 84 19 102/66 94 Room Air 07/09/16 00:15 Room Air 07/08/16 23:42 36.7 89 17 124/69 95 Room Air 07/08/16 16:00 36.7 95 14 134/80 100 Room Air 07/08/16 16:00 Room Air Laboratory Results 24 Hours: Test 07/09/16 05:30 Hematocrit 30.9 % Hemoglobin 9.5 g/dL Assessment & Plan Assessment: POD #3 Right shoulder exploration, I&D old surgical scar. 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 Scheduled for removal of Patten catheter tomorrow and plan to place a new one after 72 hours. 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
[2016-07-09 15:00] VITALS: BP 122/83; PULSE 97; TEMP 36.6; O2SAT 95
--- NOTE | 2016-07-09 18:20 | Progress Note ---
Medicine Progress Note Date & Time of Visit: Jul 09, 2016 at 18:20. Subjective Patient reports his right arm feels tight and has some numbness medially but otherwise the pain is about the same. No overnight events noted. Has had occasional nausea and states he has been trying to take less pain medication but is having difficulty waiting more than 5-6 hours. No other complaints. Has diarrhea occasionally. Objective Last 8 Hrs Date Time Temp Pulse Resp B/P Pulse Ox O2 Delivery O2 Flow Rate FiO2 07/09/16 15:00 36.6 97 20 122/83 95 Room Air Physical Exam: GENERAL: Patient is in no acute distress. HEENT: No acute trauma, normocephalic, mucous membranes moist, no nasal congestion, no scleral icterus. NECK: No stridor, trachea is midline. LUNGS: Clear to auscultation bilaterally, no wheeze, no rhonchi, breath sounds equal. HEART: Without murmurs gallops or rubs, regular rate and rhythm. ABDOMEN: Soft, nontender, bowel sounds positive EXTREMITIES: No cyanosis or edema, right shoulder in sling; surgical dressing present, limited ROM in right shoulder NEUROLOGIC: Oriented x 3, no acute motor or sensory deficits, no focal weakness. SKIN: No rash, no jaundice, no diaphoresis. Laboratory Results: Last 24 Hours Test 07/09/16 05:30 White Blood Count 10.47 K/uL Red Blood Count 4.39 M/uL Hemoglobin 9.5 g/dL Hematocrit 30.9 % Mean Corpuscular Volume 70.4 fL Mean Corpuscular Hemoglobin 21.6 pg Mean Corpuscular Hemoglobin Concent 30.7 g/dl RDW Standard Deviation 41.8 fL RDW Coefficient of Variation 16.2 % Platelet Count 336 K/uL Mean Platelet Volume 10.0 fL Sodium Level 144 mmol/L Potassium Level 3.6 mmol/L Chloride Level 108 mmol/L Carbon Dioxide Level 27 mmol/L Anion Gap 9.0 mmol/L Blood Urea Nitrogen 16 mg/dl Creatinine 0.92 mg/dl Est Creatinine Clear Calc Drug Dose 121.4 ml/min Estimated GFR () 121.9 Estimated GFR (Non- 105.1 BUN/Creatinine Ratio 17.3 Random Glucose 96 mg/dl Calcium Level 7.6 mg/dl Date/Time Source Procedure Growth Status 07/09/16 00:00 Stool C.difficile Toxin B Gene (PCR) - Final No C. difficile toxin B gene detected Complete 07/09/16 00:00 Stool Shiga Toxin Test Pending Received 07/09/16 00:00 Stool Stool Culture Pending Received Assessment & Plan BACTEREMIA: -Blood culture x 1 bottle grew VRE and proteus sp -suspected source was right shoulder that has had recurrent infections -was on IV Vancomycin and Rocephin as outpatient and earlier part of this admission for prior right shoulder infection, this was changed to ertapenem and Linezolid by ID -ID consulted, recommended removal of Patten catheter and culture -Vascular surgery consulted for catheter removal/replacement, planning to remove it tomorrow SUSPECTED RIGHT SHOULDER INFECTION: -s/p I&D POD #3 -has had recurrent right shoulder infections, s/p multiple surgeries, most recently I&D in Mar 2016; patient and his report feeling frustrated about need for recurrent surgeries and recurrent infections, state they have sought opinions at other facilities but are unable to find any center that would operate and has not been able to stay infection free for longer than 1-2 months -US on admission showed fluid collection -MRI: partially imaged 2.5 x 0.5 cm SQ fluid collection deep to scar does not appear significantly changed, superficial to deltoid muscle, possibly postop seroma vs. infected fluid collection; no joint effusion; mild supraspinatus tendinopathy; subacromial/ subdeltoid bursa possible mild bursitis; circumferential tear/ degeneration fo labrum, mild nonspecific edema of deltoid muscle-possibly postop change or myositis -was on IV Vancomycin and Rocephin as outpatient per prior cultures -Ortho consulted; appreciate input: s/p incision and wound exploration debridement fat and fascia and closure over drains -intra-op cultures: gram stain no organisms, culture pending but no growth thus far -continue pain control with Dilaudid 1 mg q4 PRN, Percocet 5-325 two tabs q4 PRN , OxyContin 20 mg q12 DIARRHEA: -reports 1-2 episodes a day -stool culture and C.diff ordered -patient offered imodium if c diff negative HYPOKALEMIA: -repleted -recheck CHRONIC ANEMIA: -Hb ranging from 8-10 -monitor and transfuse as needed Current Inpatient Medications: Current Inpatient Medications Medications (Trade) Dose Ordered Sig/Diane Route Start Time Stop Time Status Last Admin Dose Admin Acetaminophen (Tylenol Tab) 650 mg Q4H PRN PO 07/03/16 03:45 08/02/16 03:44 07/03/16 23:34 650 MG Al Hydrox/Mg Hydrox/Simethicone (Maalox Max Susp) 15 ml Q4H PRN PO 07/03/16 03:45 08/02/16 03:44 Magnesium Hydroxide (Milk Of Magnesia Susp) 30 ml Q6H PRN PO 07/03/16 03:45 08/02/16 03:44 Polyethylene (Miralax Powder Packet) 17 gm DAILY PRN PO 07/03/16 03:45 08/02/16 03:44 Ondansetron HCl (Zofran Inj) 4 mg Q6H PRN IV 07/03/16 03:45 08/02/16 03:44 07/09/16 02:38 4 MG Hydromorphone HCl 1 mg 1 mg Q4 PRN IV 07/03/16 03:45 07/17/16 03:44 07/09/16 17:36 1 MG Sodium Chloride (Nss 1000ml) 1,000 ml @ 80 mls/hr [id number] IV 07/03/16 03:45 08/02/16 03:44 07/09/16 10:12 80 MLS/HR Diphenhydramine HCl (Benadryl Inj) 25 mg Q4 PRN IV 07/03/16 03:45 08/02/16 03:44 07/09/16 16:03 25 MG Gabapentin (Neurontin Tab) 600 mg BID PO 07/03/16 09:00 08/02/16 08:59 07/09/16 08:22 600 MG Senna (Senokot Tab) 17.2 mg HS PO 07/03/16 21:00 08/02/16 20:59 Docusate Sodium (coLACE CAP) 100 mg BID PO 07/03/16 09:00 08/02/16 08:59 Heparin Sodium (Porcine) (Heparin 100 Unit/ml 5ml Flush) 5 ml PRN PRN IV 07/03/16 19:45 08/02/16 19:44 Oxycodone HCl 20 mg 20 mg Q12 PO 07/06/16 09:00 07/20/16 08:59 07/09/16 08:20 20 MG Ertapenem/Sodium Chloride (Invanz Iv/Nss Ad-Van 50ml) 50 ml @ 120 mls/hr Q24H IV 07/06/16 10:00 07/20/16 09:59 07/09/16 10:12 120 MLS/HR Linezolid (Zyvox Tab) 600 mg BID PO 07/06/16 21:00 07/20/16 20:59 07/09/16 08:21 600 MG Oxycodone/ Acetaminophen (Percocet 5-325MG Tab) `1-2 tabs for pain 1 tab ... Q4H PRN PO 07/06/16 16:45 07/20/16 16:44 07/09/16 16:03 2 TAB
[2016-07-09] MEDS ORDERED: BUTALBITAL/ACETAMIN/CAFFEINE TAB PO PRN (18:30)
[2016-07-09] MEDS: SENNA 8.6 MG TAB PO SCH (20:17)
[2016-07-09 23:16] VITALS: BP 129/97; PULSE 94; TEMP 36.8; O2SAT 99
[2016-07-10] VITALS (9 sets, daily range): BP systolic 99–159; BP diastolic 64–96; PULSE 71–95; TEMP 36.4–37.1; O2SAT 95–97
[2016-07-10] MEDS: OXYCODONE/ACETAMINOPHEN 5-325 TAB PO PRN ×3 (01:10→21:46)
[2016-07-10] MEDS: HYDROmorphone INJ 1 MG/ML SYR IV PRN ×4 (02:59→18:13)
[2016-07-10] MEDS: DiphenhydrAMINE HCL 50 MG/ML VIAL IV PRN ×4 (02:59→18:13)
[2016-07-10] MEDS: OXYCODONE HCL 20 MG TABCR (OXYCONTIN) PO SCH ×3 (07:56→21:48)
[2016-07-10] MEDS: LINEZOLID 600 MG TAB PO SCH ×2 (07:57→21:51)
[2016-07-10] MEDS: GABAPENTIN 600 MG TAB PO SCH ×2 (07:57→21:51)
[2016-07-10] MEDS: DOCUSATE SODIUM 100 MG CAP PO SCH ×2 (07:59→21:46)
[2016-07-10] MEDS ORDERED: LIDOCAINE HCL 1% 20 ML VIAL ONE ×4 (09:35→10:25)
--- NOTE | 2016-07-10 09:37 | Procedure Note ---
Pre-Mod Sedation Assessment General Date of Moderate Sedation: Jul 10, 2016. Vital Signs: Vital Signs Past 12 Hours Date Time Temp Pulse Resp B/P Pulse Ox O2 Delivery O2 Flow Rate FiO2 07/10/16 08:56 36.6 75 18 118/80 98 Room Air 07/10/16 08:02 Room Air 07/10/16 07:18 36.6 73 16 133/68 96 Room Air 07/09/16 23:16 36.8 94 16 129/97 99 Room Air 07/09/16 23:05 Room Air Pre-Sedation Airway Assessment Smoking Status: Never Smoker Mallampati Classification: Class I ASA Classification: Class II Notes The planned sedation has been discussed with the patient and consent obtained. I have identified the patient, determined the appropriateness of sedation and have assessed the patient immediately prior to the procedure. All medicine(s) and interventions are by my order.
--- NOTE | 2016-07-10 09:37 | Progress Note ---
Progress Note Patient for removal of his muller today for possible infection. I have discussed the risks options and benefits of the procedure with the patient. The patient understands the risks options and benefits and agrees to the procedure. I have examined the patient, reviewed the History & Physical and in the interval since the performance of the History & Physical I have noted the following changes of clinical significance: No changes noted
[2016-07-10] MEDS ORDERED: MIDAZOLAM HCL 1 MG/ML 2ML VIAL ONE ×3 (09:40→10:31)
[2016-07-10] MEDS ORDERED: FENTANYL CITRATE INJ 50 MCG/1 ML 2 ML VIAL ONE ×2 (09:40→10:20)
[2016-07-10] MEDS ORDERED: FENTANYL CITRATE INJ 50 MCG/1 ML 2 ML VIAL IV ONE (10:45)
[2016-07-10] MEDS ORDERED: LIDOCAINE HCL 1% 20 ML VIAL SQ ONE (10:45)
[2016-07-10] MEDS ORDERED: MIDAZOLAM HCL 1 MG/ML 2ML VIAL IV ONE (10:45)
--- NOTE | 2016-07-10 10:46 | [facility] Operative Report ---
Operative Report Operative Date Jul 10, 2016. Pre-Operative Diagnosis Infected Shoulder Post-Operative Diagnosis same Procedure(s) Performed Removal of left internal jugular vein Patten Moderate conscious sedation (1010 - 1038) Surgeon Dr. Ewing Community Associate Surgeon(s) None Estimated Blood Loss 10 Findings no fluid around the catheter Specimens Explant Patten Catheter Anesthesia Local with moderate conscious sedation Complication(s) None Disposition I attest to the content of the Intraoperative Record and any orders documented therein. Any exceptions are noted below.
--- NOTE | 2016-07-10 11:11 | DIAGNOSTIC IMAGING REPORT ---
DATE OF PROCEDURE: 07/10/2016 PREOPERATIVE DIAGNOSIS: Infected shoulder post-Patten insertion. POSTOPERATIVE DIAGNOSIS: Same. PROCEDURES: 1. Removal of Patten catheter. 2. Moderate conscious sedation. SURGEON: Dr. Ewing. ANESTHETIC: Local with moderate conscious sedation. PROCEDURE INDICATIONS: The patient is a 40-year-old gentleman who has chronically infected right shoulder. He came in with signs of infection again. The shoulder was aspirated and grew no positive cultures. He has a Patten catheter in place. It was recommended he remove the Patten to remove all source of possible infection. He understood the risks, options and benefits and agreed to go ahead with the procedure. The patient was taken to the angio suite and was placed in the supine position. After left side of neck and Patten catheter were prepped and draped the suture was removed. Using sharp and blunt dissection we tried to free up the cuff. This could not be done from the exit site. We therefore made a counterincision slightly higher after the area was anesthetized. The catheter was found. It was pulled up and the distal end clamped and divided. Again, we could not reach the cuff to free it up well enough. Another counter incision was made just at the clavicular level. The cuff was identified at that point. It was very adherent to the surrounding tissue. Using the sharp dissection this fibrous tissue was divided. The catheter then slid out easily. Pressure was applied. Adequate hemostasis was obtained. The 2 counterincision wounds were closed using a 4-0 subcuticular Vicryl suture. Sterile dressings were applied to the wound and Dermabond was placed to the counterincisions. The patient left the angio suite in good condition and tolerated the procedure well.
[2016-07-10] MEDS: SODIUM CHLORIDE 0.9% 1000ML 1,000 ML IV SCH ×2 (11:24→23:54)
[2016-07-10] MEDS: ERTAPENEM IV 1 GM in SODIUM CHLOR 0.9% AD-VAN 50ML 50 ML IV SCH (11:32)
--- NOTE | 2016-07-10 14:57 | Progress Note ---
Medicine Progress Note Date & Time of Visit: Jul 10, 2016 at 14:52. Subjective Patient denies any new complaints, underwent Patten catheter removal today and complains of soreness and bruising. States he is more tired today. Reports his stool is more watery today and willing to try probiotics. No overnight events noted. Tolerating PO; states his appetite has been poor but is frequently seen eating candy throughout the day. No other complaints at this time. RUE pain is unchanged. Objective Last 8 Hrs Date Time Temp Pulse Resp B/P Pulse Ox O2 Delivery O2 Flow Rate FiO2 07/10/16 14:16 36.7 88 16 159/96 95 Room Air 07/10/16 13:19 36.4 95 16 106/66 97 Room Air 07/10/16 12:20 94 18 104/64 96 Room Air 07/10/16 11:50 88 16 145/76 96 Room Air 07/10/16 11:22 36.5 71 16 101/67 95 Room Air 07/10/16 08:56 36.6 75 18 118/80 98 Room Air 07/10/16 08:02 Room Air 07/10/16 07:18 36.6 73 16 133/68 96 Room Air Physical Exam: GENERAL: Patient is in no acute distress. HEENT: No acute trauma, normocephalic, mucous membranes moist, no nasal congestion, no scleral icterus. NECK: No stridor, trachea is midline. LUNGS: Clear to auscultation bilaterally, no wheeze, no rhonchi, breath sounds equal. HEART: Without murmurs gallops or rubs, regular rate and rhythm. Left chest wall with bruising, no erythema or drainage from previous catheter site ABDOMEN: Soft, nontender, bowel sounds positive EXTREMITIES: No cyanosis or edema, right shoulder in sling; occlusive dressing present, limited ROM in right shoulder NEUROLOGIC: Oriented x 3, no acute motor or sensory deficits, no focal weakness. SKIN: No rash, no jaundice, no diaphoresis. Laboratory Results: Date/Time Source Procedure Growth Status 07/10/16 10:33 Catheter Tip Central Venous Pressure Line Catheter Tip Culture Pending Received Assessment & Plan BACTEREMIA: -Blood culture x 1 bottle grew VRE and proteus sp -suspected source was right shoulder that has had recurrent infections -was on IV Vancomycin and Rocephin as outpatient and earlier part of this admission for prior right shoulder infection, this was changed to ertapenem and Linezolid by ID -ID consulted, recommended removal of Patten catheter and culture -Vascular surgery consulted for catheter removal/replacement, s/p removal today with plans for insertion of a new catheter pending tip culture results SUSPECTED RIGHT SHOULDER INFECTION: -s/p I&D POD #4 -has had recurrent right shoulder infections, s/p multiple surgeries, most recently I&D in Mar 2016; patient and his report feeling frustrated about need for recurrent surgeries and recurrent infections, state they have sought opinions at other facilities but are unable to find any center that would operate and has not been able to stay infection free for longer than 1-2 months -US on admission showed fluid collection -MRI: partially imaged 2.5 x 0.5 cm SQ fluid collection deep to scar does not appear significantly changed, superficial to deltoid muscle, possibly postop seroma vs. infected fluid collection; no joint effusion; mild supraspinatus tendinopathy; subacromial/ subdeltoid bursa possible mild bursitis; circumferential tear/ degeneration fo labrum, mild nonspecific edema of deltoid muscle-possibly postop change or myositis -was on IV Vancomycin and Rocephin as outpatient per prior cultures -Ortho consulted; appreciate input: s/p incision and wound exploration debridement fat and fascia and closure over drains -intra-op cultures: gram stain no organisms, culture pending but no growth thus far -continue pain control with Dilaudid 1 mg q4 PRN, Percocet 5-325 two tabs q4 PRN , OxyContin 20 mg q12 DIARRHEA: -reports 1-2 episodes a day -stool culture and C.diff negative HYPOKALEMIA: -repleted -recheck CHRONIC ANEMIA: -Hb ranging from 8-10 -monitor and transfuse as needed Current Inpatient Medications: Current Inpatient Medications Medications (Trade) Dose Ordered Sig/Diane Route Start Time Stop Time Status Last Admin Dose Admin Acetaminophen (Tylenol Tab) 650 mg Q4H PRN PO 07/03/16 03:45 08/02/16 03:44 07/03/16 23:34 650 MG Al Hydrox/Mg Hydrox/Simethicone (Maalox Max Susp) 15 ml Q4H PRN PO 07/03/16 03:45 08/02/16 03:44 Magnesium Hydroxide (Milk Of Magnesia Susp) 30 ml Q6H PRN PO 07/03/16 03:45 08/02/16 03:44 Polyethylene (Miralax Powder Packet) 17 gm DAILY PRN PO 07/03/16 03:45 08/02/16 03:44 Ondansetron HCl (Zofran Inj) 4 mg Q6H PRN IV 07/03/16 03:45 08/02/16 03:44 07/09/16 02:38 4 MG Hydromorphone HCl 1 mg 1 mg Q4 PRN IV 07/03/16 03:45 07/17/16 03:44 07/10/16 13:37 1 MG Sodium Chloride (Nss 1000ml) 1,000 ml @ 80 mls/hr [id number] IV 07/03/16 03:45 08/02/16 03:44 07/10/16 11:24 80 MLS/HR Diphenhydramine HCl (Benadryl Inj) 25 mg Q4 PRN IV 07/03/16 03:45 08/02/16 03:44 07/10/16 14:03 25 MG Gabapentin (Neurontin Tab) 600 mg BID PO 07/03/16 09:00 08/02/16 08:59 07/10/16 07:57 600 MG Senna (Senokot Tab) 17.2 mg HS PO 07/03/16 21:00 08/02/16 20:59 Docusate Sodium (coLACE CAP) 100 mg BID PO 07/03/16 09:00 08/02/16 08:59 Heparin Sodium (Porcine) (Heparin 100 Unit/ml 5ml Flush) 5 ml PRN PRN IV 07/03/16 19:45 08/02/16 19:44 Oxycodone HCl 20 mg 20 mg Q12 PO 07/06/16 09:00 07/20/16 08:59 07/10/16 07:56 20 MG Ertapenem/Sodium Chloride (Invanz Iv/Nss Ad-Van 50ml) 50 ml @ 120 mls/hr Q24H IV 07/06/16 10:00 07/20/16 09:59 07/10/16 11:32 120 MLS/HR Linezolid (Zyvox Tab) 600 mg BID PO 07/06/16 21:00 07/20/16 20:59 07/10/16 07:57 600 MG Oxycodone/ Acetaminophen (Percocet 5-325MG Tab) `1-2 tabs for pain 1 tab ... Q4H PRN PO 07/06/16 16:45 07/20/16 16:44 07/10/16 01:10 2 TAB Acetaminophen/ Butalbital/ Caffeine (Fioricet Tab) 1 tab Q8H PRN PO 07/09/16 18:30 08/08/16 18:29 07/09/16 22:15 1 TAB
--- NOTE | 2016-07-10 15:06 | Orthopedic Progress Note ---
Orthopedic Progress Note Date of Service Jul 10, 2016. Subjective Post OP Day: 4 Reports: feeling well, Denies: SOB, calf pain, chest pain, light headedness, nausea / vomiting Objective calves soft nontender, dressing C/D/I, A&O x3, toes mobile NO DRAINAGE ON DRESSING. NUMBNESS AND SWELLING RUE Date Time Temp Pulse Resp B/P Pulse Ox O2 Delivery O2 Flow Rate FiO2 07/10/16 14:16 36.7 88 16 159/96 95 Room Air 07/10/16 13:19 36.4 95 16 106/66 97 Room Air 07/10/16 12:20 94 18 104/64 96 Room Air 07/10/16 11:50 88 16 145/76 96 Room Air 07/10/16 11:22 36.5 71 16 101/67 95 Room Air 07/10/16 08:56 36.6 75 18 118/80 98 Room Air 07/10/16 08:02 Room Air 07/10/16 07:18 36.6 73 16 133/68 96 Room Air 07/09/16 23:16 36.8 94 16 129/97 99 Room Air 07/09/16 23:05 Room Air 07/09/16 15:45 Room Air Assessment & Plan Assessment: POD #4 Right shoulder exploration, I&D old surgical scar. chronic recurrent infection history, wound recently flared up and ultrasound small residual superficial collection,positive blood cultures gram neg and positive organisms,no improvement possible recurrent infection and myositis deltoid SCOTT REMOVED TODAY DRESSING CHANGES DAILY ORTHOPEDICALLY STABLE CONT IV ABX FOLLOW UP 2-4 WEEKS Plan: Will monitor patient throughout stay. Scheduled for removal of Scott catheter tomorrow and plan to place a new one after 72 hours. 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
[2016-07-10] MEDS: LACTOBACILLUS ACIDOPHILUS (FLORANEX) TAB PO SCH (18:12)
[2016-07-10] MEDS: SENNA 8.6 MG TAB PO SCH (21:46)
[2016-07-11] MEDS: DiphenhydrAMINE HCL 50 MG/ML VIAL IV PRN ×6 (00:06→21:39)
[2016-07-11] MEDS: HYDROmorphone INJ 1 MG/ML SYR IV PRN ×6 (00:07→21:39)
[2016-07-11 02:40] VITALS: BP 105/64; PULSE 96; TEMP 36.6; O2SAT 99
[2016-07-11] MEDS: OXYCODONE/ACETAMINOPHEN 5-325 TAB PO PRN ×4 (02:59→22:37)
[2016-07-11 07:09] VITALS: BP 97/61; PULSE 83; TEMP 36.7; O2SAT 96
[2016-07-11 07:21] LABS: BUN/CREATININE RATIO 12.1 (10-20); CALCIUM 7.6 mg/dl (8.5-10.1); CREATININE 0.97 mg/dl (0.60-1.40); POTASSIUM 3.7 mmol/L (3.5-5.1)
[2016-07-11 07:48] LABS: HEMATOCRIT 29.4 % (42-52); MEAN CORPUSCULAR HEMOGLOBIN 21.7 pg (25-34); MEAN PLATELET VOLUME 10.1 fL (7.4-10.4); PLATELET COUNT 334 K/uL (130-400); RED BLOOD COUNT 4.14 M/uL (4.7-6.1); WHITE BLOOD COUNT 7.75 K/uL (4.8-10.8)
[2016-07-11 07:52] LABS: MEAN CORPUSCULAR HGB CONC 30.6 g/dl (32-36)
[2016-07-11] MEDS: GABAPENTIN 600 MG TAB PO SCH ×2 (08:37→21:38)
[2016-07-11] MEDS: LINEZOLID 600 MG TAB PO SCH ×2 (08:37→21:38)
[2016-07-11] MEDS: DOCUSATE SODIUM 100 MG CAP PO SCH ×2 (08:37→21:36)
[2016-07-11] MEDS: LACTOBACILLUS ACIDOPHILUS (FLORANEX) TAB PO SCH ×3 (08:38→17:36)
[2016-07-11] MEDS: OXYCODONE HCL 20 MG TABCR (OXYCONTIN) PO SCH ×2 (08:42→21:38)
[2016-07-11] MEDS: ERTAPENEM IV 1 GM in SODIUM CHLOR 0.9% AD-VAN 50ML 50 ML IV SCH (10:29)
--- NOTE | 2016-07-11 11:37 | Progress Note ---
Progress Note Tentatively planning replacement of Patten catheter in OR tomorrow afternoon pending cx results. Procedure, risks, benefits, and alternatives discussed with pt, he expresses understanding and agreement.
[2016-07-11] MEDS: SODIUM CHLORIDE 0.9% 1000ML 1,000 ML IV SCH (12:15)
[2016-07-11 15:15] VITALS: BP 127/84; PULSE 86; TEMP 36.8; O2SAT 95
[2016-07-11 16:15] VITALS: O2SAT 95
--- NOTE | 2016-07-11 20:26 | Infectious Disease Progress Nt ---
Progress Note Date of Service Jul 11, 2016. Subjective Pt evaluation today including: conversation w/ patient, physical exam, chart review, lab review, review of studies, conversation w/ end user consultant, review of inpatient medication list Patient is status post replacement of Patten catheter. No increase in shoulder pain, no increased drainage. No fever or chills. Continues to tolerate antibiotics. All Other Systems: Reviewed and Negative Medications Current Inpatient Medications Medications (Trade) Dose Ordered Sig/Diane Route Start Time Stop Time Status Last Admin Dose Admin Acetaminophen (Tylenol Tab) 650 mg Q4H PRN PO 07/03/16 03:45 08/02/16 03:44 07/03/16 23:34 650 MG Al Hydrox/Mg Hydrox/Simethicone (Maalox Max Susp) 15 ml Q4H PRN PO 07/03/16 03:45 08/02/16 03:44 Magnesium Hydroxide (Milk Of Magnesia Susp) 30 ml Q6H PRN PO 07/03/16 03:45 08/02/16 03:44 Polyethylene (Miralax Powder Packet) 17 gm DAILY PRN PO 07/03/16 03:45 08/02/16 03:44 Ondansetron HCl (Zofran Inj) 4 mg Q6H PRN IV 07/03/16 03:45 08/02/16 03:44 07/09/16 02:38 4 MG Hydromorphone HCl 1 mg 1 mg Q4 PRN IV 07/03/16 03:45 07/17/16 03:44 07/11/16 17:35 1 MG Sodium Chloride (Nss 1000ml) 1,000 ml @ 80 mls/hr [id number] IV 07/03/16 03:45 08/02/16 03:44 07/11/16 12:15 80 MLS/HR Diphenhydramine HCl (Benadryl Inj) 25 mg Q4 PRN IV 07/03/16 03:45 08/02/16 03:44 07/11/16 17:33 25 MG Gabapentin (Neurontin Tab) 600 mg BID PO 07/03/16 09:00 08/02/16 08:59 07/11/16 08:37 600 MG Senna (Senokot Tab) 17.2 mg HS PO 07/03/16 21:00 08/02/16 20:59 Docusate Sodium (coLACE CAP) 100 mg BID PO 07/03/16 09:00 08/02/16 08:59 Heparin Sodium (Porcine) (Heparin 100 Unit/ml 5ml Flush) 5 ml PRN PRN IV 07/03/16 19:45 08/02/16 19:44 Oxycodone HCl 20 mg 20 mg Q12 PO 07/06/16 09:00 07/20/16 08:59 07/11/16 08:42 20 MG Ertapenem/Sodium Chloride (Invanz Iv/Nss Ad-Van 50ml) 50 ml @ 120 mls/hr Q24H IV 07/06/16 10:00 07/20/16 09:59 07/11/16 10:29 120 MLS/HR Linezolid (Zyvox Tab) 600 mg BID PO 07/06/16 21:00 07/20/16 20:59 07/11/16 08:37 600 MG Oxycodone/ Acetaminophen (Percocet 5-325mg Tab) `1-2 tabs for pain 1 tab ... Q4H PRN PO 07/06/16 16:45 07/20/16 16:44 07/11/16 16:54 2 TAB Acetaminophen/ Butalbital/ Caffeine (Fioricet Tab) 1 tab Q8H PRN PO 07/09/16 18:30 08/08/16 18:29 07/09/16 22:15 1 TAB Lactobacillus Acidophilus (Floranex Tab) 4 tab TIDM PO 07/10/16 17:45 08/09/16 17:44 07/11/16 17:36 4 TAB Objective Vital Signs Date Time Temp Pulse Resp B/P Pulse Ox O2 Delivery O2 Flow Rate FiO2 07/11/16 16:15 95 Room Air 07/11/16 15:15 36.8 86 18 127/84 95 Room Air 07/11/16 08:20 Room Air 07/11/16 07:09 36.7 83 18 97/61 96 Room Air 07/11/16 02:40 36.6 96 16 105/64 99 Room Air 07/10/16 23:55 Room Air 07/10/16 23:08 36.7 95 16 107/66 95 Room Air Physical Exam General Appearance: WD/WN, no apparent distress Eyes: normal inspection, sclerae normal ENT: normal ENT inspection, pharynx normal Neck: supple, no adenopathy, thyroid normal, trachea midline Respiratory/Chest: lungs clear, normal breath sounds, no respiratory distress Cardiovascular: regular rate, rhythm, no gallop, no murmur Abdomen: normal bowel sounds, non tender, soft, no organomegaly Extremities: non-tender, no calf tenderness Neurologic/Psychiatric: alert, oriented x 3 Skin: normal color, no rash Lymphatic: no adenopathy Laboratory Results Last 24 Hours Test 07/11/16 06:37 07/11/16 07:40 Sodium Level 140 mmol/L Potassium Level 3.7 mmol/L Chloride Level 106 mmol/L Carbon Dioxide Level 24 mmol/L Anion Gap 10.0 mmol/L Blood Urea Nitrogen 12 mg/dl Creatinine 0.97 mg/dl Est Creatinine Clear Calc Drug Dose 115.1 ml/min Estimated GFR () 114.3 Estimated GFR (Non- 98.6 BUN/Creatinine Ratio 12.1 Random Glucose 116 mg/dl Calcium Level 7.6 mg/dl White Blood Count 7.75 K/uL Red Blood Count 4.14 M/uL Hemoglobin 9.0 g/dL Hematocrit 29.4 % Mean Corpuscular Volume 71.0 fL Mean Corpuscular Hemoglobin 21.7 pg Mean Corpuscular Hemoglobin Concent 30.6 g/dl RDW Standard Deviation 42.1 fL RDW Coefficient of Variation 16.0 % Platelet Count 334 K/uL Mean Platelet Volume 10.1 fL Assessment and Plan 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 Will need to follow CBC, inflammatory markers, and CMP while on antibiotics. Will discuss with all involved.
[2016-07-11] MEDS: SENNA 8.6 MG TAB PO SCH (21:36)
[2016-07-11 23:28] VITALS: BP 120/76; PULSE 88; TEMP 36.6; O2SAT 98
[2016-07-12] VITALS (14 sets, daily range): BP systolic 92–128; BP diastolic 49–78; PULSE 62–95; TEMP 36.3–37; O2SAT 94–98
[2016-07-12] MEDS: SODIUM CHLORIDE 0.9% 1000ML 1,000 ML IV SCH ×2 (00:29→11:51)
--- NOTE | 2016-07-12 01:15 | Progress Note ---
Medicine Progress Note Date & Time of Visit: Jul 12, 2016 at 01:15. delayed entry date of service 07/11/16 Subjective seen resting in bed, comfortable mild pain on the patten site left shoulder pain about the same denies other symptoms Objective Last 8 Hrs Date Time Temp Pulse Resp B/P Pulse Ox O2 Delivery O2 Flow Rate FiO2 07/12/16 00:15 Room Air 07/11/16 23:28 36.6 88 17 120/76 98 Room Air Physical Exam: General- oriented x 3, not in distress Head- atraumatic Eyes- EOMI, anicteric Neck- supple, no JVD Lungs- clear to auscultation bilaterally Chest- Patten site cath: wounds healing, no bleeding/discharge/swelling; (+) mild erythema Heart- regular rhythm; no murmur Abdomen- normal bowel sounds, soft, nontender Extremities- no pretibial edema, no calf tenderness Neuro- alert, oriented x 3;no gross deficits Skin- warm & dry Laboratory Results: Last 24 Hours Test 07/11/16 06:37 07/11/16 07:40 Sodium Level 140 mmol/L Potassium Level 3.7 mmol/L Chloride Level 106 mmol/L Carbon Dioxide Level 24 mmol/L Anion Gap 10.0 mmol/L Blood Urea Nitrogen 12 mg/dl Creatinine 0.97 mg/dl Est Creatinine Clear Calc Drug Dose 115.1 ml/min Estimated GFR () 114.3 Estimated GFR (Non- 98.6 BUN/Creatinine Ratio 12.1 Random Glucose 116 mg/dl Calcium Level 7.6 mg/dl White Blood Count 7.75 K/uL Red Blood Count 4.14 M/uL Hemoglobin 9.0 g/dL Hematocrit 29.4 % Mean Corpuscular Volume 71.0 fL Mean Corpuscular Hemoglobin 21.7 pg Mean Corpuscular Hemoglobin Concent 30.6 g/dl RDW Standard Deviation 42.1 fL RDW Coefficient of Variation 16.0 % Platelet Count 334 K/uL Mean Platelet Volume 10.1 fL Assessment & Plan BACTEREMIA - FROM RECURRENT SHOULDER INFECTION VS. PATTEN CATH INFECTION -Blood culture x 1 bottle grew VRE and proteus sp -was on IV Vancomycin and Rocephin as outpatient and earlier part of this admission for prior right shoulder infection, this was changed to ertapenem and Linezolid by ID -ID consulted, recommended removal of Patten catheter and culture -s/p Removal of Patten Cath Cath tip culture: pending for Replacement of Cath - continue Linezolid and Ertapenem SUSPECTED RIGHT SHOULDER INFECTION, Recurrent -s/p I&D POD #5 -US on admission showed fluid collection -MRI: partially imaged 2.5 x 0.5 cm SQ fluid collection deep to scar does not appear significantly changed, superficial to deltoid muscle, possibly postop seroma vs. infected fluid collection; no joint effusion; mild supraspinatus tendinopathy; subacromial/ subdeltoid bursa possible mild bursitis; circumferential tear/ degeneration fo labrum, mild nonspecific edema of deltoid muscle-possibly postop change or myositis - s/p incision and wound exploration debridement fat and fascia and closure over drains intra-op cultures: gram stain no organisms, culture pending but no growth thus far -continue pain regimen DIARRHEA: -reports 1-2 episodes a day -stool culture and C.diff negative HYPOKALEMIA: -repleted normal CHRONIC ANEMIA: -Hb ranging from 8-10 -monitor and transfuse as needed Current Inpatient Medications: Current Inpatient Medications Medications (Trade) Dose Ordered Sig/Diane Route Start Time Stop Time Status Last Admin Dose Admin Acetaminophen (Tylenol Tab) 650 mg Q4H PRN PO 07/03/16 03:45 08/02/16 03:44 07/03/16 23:34 650 MG Al Hydrox/Mg Hydrox/Simethicone (Maalox Max Susp) 15 ml Q4H PRN PO 07/03/16 03:45 08/02/16 03:44 Magnesium Hydroxide (Milk Of Magnesia Susp) 30 ml Q6H PRN PO 07/03/16 03:45 08/02/16 03:44 Polyethylene (Miralax Powder Packet) 17 gm DAILY PRN PO 07/03/16 03:45 08/02/16 03:44 Ondansetron HCl (Zofran Inj) 4 mg Q6H PRN IV 07/03/16 03:45 08/02/16 03:44 07/09/16 02:38 4 MG Hydromorphone HCl 1 mg 1 mg Q4 PRN IV 07/03/16 03:45 07/17/16 03:44 07/11/16 21:39 1 MG Sodium Chloride (Nss 1000ml) 1,000 ml @ 80 mls/hr [id number] IV 07/03/16 03:45 08/02/16 03:44 07/12/16 00:29 80 MLS/HR Diphenhydramine HCl (Benadryl Inj) 25 mg Q4 PRN IV 07/03/16 03:45 08/02/16 03:44 07/11/16 21:39 25 MG Gabapentin (Neurontin Tab) 600 mg BID PO 07/03/16 09:00 08/02/16 08:59 07/11/16 21:38 600 MG Senna (Senokot Tab) 17.2 mg HS PO 07/03/16 21:00 08/02/16 20:59 Docusate Sodium (coLACE CAP) 100 mg BID PO 07/03/16 09:00 08/02/16 08:59 Heparin Sodium (Porcine) (Heparin 100 Unit/ml 5ml Flush) 5 ml PRN PRN IV 07/03/16 19:45 08/02/16 19:44 Oxycodone HCl 20 mg 20 mg Q12 PO 07/06/16 09:00 07/20/16 08:59 07/11/16 21:38 20 MG Ertapenem/Sodium Chloride (Invanz Iv/Nss Ad-Van 50ml) 50 ml @ 120 mls/hr Q24H IV 07/06/16 10:00 07/20/16 09:59 07/11/16 10:29 120 MLS/HR Linezolid (Zyvox Tab) 600 mg BID PO 07/06/16 21:00 07/20/16 20:59 07/11/16 21:38 600 MG Oxycodone/ Acetaminophen (Percocet 5-325mg Tab) `1-2 tabs for pain 1 tab ... Q4H PRN PO 07/06/16 16:45 07/20/16 16:44 07/11/16 22:37 2 TAB Acetaminophen/ Butalbital/ Caffeine (Fioricet Tab) 1 tab Q8H PRN PO 07/09/16 18:30 08/08/16 18:29 07/09/16 22:15 1 TAB Lactobacillus Acidophilus (Floranex Tab) 4 tab TIDM PO 07/10/16 17:45 08/09/16 17:44 07/11/16 17:36 4 TAB
[2016-07-12] MEDS: DiphenhydrAMINE HCL 50 MG/ML VIAL IV PRN ×4 (01:57→20:48)
[2016-07-12] MEDS: HYDROmorphone INJ 1 MG/ML SYR IV PRN ×4 (01:57→20:48)
[2016-07-12] MEDS: OXYCODONE/ACETAMINOPHEN 5-325 TAB PO PRN ×4 (07:06→23:14)
[2016-07-12] MEDS: DOCUSATE SODIUM 100 MG CAP PO SCH ×2 (08:26→20:46)
[2016-07-12] MEDS: LACTOBACILLUS ACIDOPHILUS (FLORANEX) TAB PO SCH ×3 (08:26→17:46)
[2016-07-12] MEDS: GABAPENTIN 600 MG TAB PO SCH ×2 (08:27→20:47)
[2016-07-12] MEDS: LINEZOLID 600 MG TAB PO SCH ×2 (08:28→20:47)
[2016-07-12] MEDS: OXYCODONE HCL 20 MG TABCR (OXYCONTIN) PO SCH ×2 (08:28→20:47)
[2016-07-12] MEDS: ERTAPENEM IV 1 GM in SODIUM CHLOR 0.9% AD-VAN 50ML 50 ML IV SCH (10:00)
--- NOTE | 2016-07-12 12:29 | Progress Note ---
Progress Note Patient for replacement of his muller. I have discussed the risks options and benefits of the procedure with the patient. The patient understands the risks options and benefits and agrees to the procedure.. I have examined the patient, reviewed the History & Physical and in the interval since the performance of the History & Physical I have noted the following changes of clinical significance: No changes noted
[2016-07-12] MEDS ORDERED: MIDAZOLAM HCL 1 MG/ML 2ML VIAL ONE ×2 (12:48→13:36)
[2016-07-12] MEDS ORDERED: FENTANYL CITRATE INJ 50 MCG/1 ML 2 ML VIAL ONE ×2 (12:48→13:42)
--- NOTE | 2016-07-12 13:11 | Procedure Note ---
Pre-Mod Sedation Assessment General Date of Moderate Sedation: Jul 12, 2016. Vital Signs: Vital Signs Past 12 Hours Date Time Temp Pulse Resp B/P Pulse Ox O2 Delivery O2 Flow Rate FiO2 07/12/16 08:00 Room Air 07/12/16 07:07 36.7 77 18 110/77 97 Room Air Pre-Sedation Airway Assessment Smoking Status: Never Smoker Mallampati Classification: Class I ASA Classification: Class I Notes The planned sedation has been discussed with the patient and consent obtained. I have identified the patient, determined the appropriateness of sedation and have assessed the patient immediately prior to the procedure. All medicine(s) and interventions are by my order.
[2016-07-12] MEDS ORDERED: MIDAZOLAM HCL 1 MG/ML 2ML VIAL IV ONE ×2 (13:37→13:44)
[2016-07-12] MEDS ORDERED: FENTANYL CITRATE INJ 50 MCG/1 ML 2 ML VIAL IV ONE ×2 (13:37→13:44)
[2016-07-12] MEDS ORDERED: LIDOCAINE HCL 1% 20 ML VIAL INJ ONE (14:00)
[2016-07-12] MEDS ORDERED: FLUSH IV ONE (14:00)
[2016-07-12] MEDS ORDERED: HEPARIN 100 UNIT/ML IV ONE (14:00)
--- NOTE | 2016-07-12 14:00 | [facility] Post Operative Brief Note ---
Immediate Operative Summary Operative Date Jul 12, 2016. Pre-Operative Diagnosis Infected Shoulder Post-Operative Diagnosis Same Procedure(s) Performed Insertion of Patten catheter Fluoro for positioning USN localization of the right internal jugular vein Moderate conscious sedation (24min) Surgeon Dr. Ewing Photoengraving Apprentice Surgeon(s) none Estimated Blood Loss 3 Findings Tip in distal SVC Specimens none Anesthesia Local with moderate conscious sedation Complication(s) None Disposition
--- NOTE | 2016-07-12 14:16 | DIAGNOSTIC IMAGING REPORT ---
DATE OF PROCEDURE: 07/12/2016 PREOPERATIVE DIAGNOSIS: Infected right shoulder. POSTOPERATIVE DIAGNOSIS: Same. PROCEDURES: 1. Insertion of right internal jugular vein Patten catheter, fluoroscopic imaging for positioning and ultrasound localization of the internal jugular vein. 2. Moderate conscious sedation 24 minutes. SURGEON: Dr. Ewing. ANESTHETIC: Local with moderate conscious sedation. PROCEDURE INDICATIONS: The patient is a 40-year-old gentleman with an infected shoulder who came in with possible sepsis. Patten catheter was removed to eliminate that as a source. The Patten was removed and culture of the Patten was negative. It is now recommended that we place the Patten back in for long-term antibiotics. He understood the risks, options and benefits and agreed to have this procedure. DESCRIPTION OF PROCEDURE: The patient was taken to the angiogram suite and placed in supine position. After right-side of the neck and chest wall were prepped and draped in a sterile manner, local anesthetic was administered. Ultrasound was used to locate the internal jugular vein on the right side. It was of good caliber, compressed easily and no filling defects and was patent. Puncture was then made of the right internal jugular vein after local anesthetic was administered. This was done under ultrasound imaging. Once the vein was punctured, the wire was passed centrally. This was done under fluoro. The wire passed down into the inferior vena cava. A stab wound was then made in the anterior chest wall. Using the trocar, the single lumen Patten catheter was passed from the stab wound in the chest wall to the puncture site in the neck. A peel away sheath was then inserted. The catheter was then cut to the appropriate length and bevelled. It was then passed through the peel away sheath and the peel away sheath removed. Wire was then passed through the Patten to make it have a better occur. Once the wire was removed, the Patten had a good nice gentle curve into the internal jugular vein and tip sat in the distal superior vena cava. It aspirated and flushed easily. The catheter was then sutured to the chest wall. This was done with nylon sutures. The stab wound in the neck was closed with interrupted 4-0 Vicryl subcuticular suture. Dermabond was used for a dressing for this stab wound. The exit site was then dressed in a sterile manner. The patient left the angiogram suite in good condition and tolerated the procedure well.
[2016-07-12] MEDS: ONDANSETRON INJ 2 MG/ML 2 ML VIAL IV PRN (16:45)
--- NOTE | 2016-07-12 20:23 | Infectious Disease Progress Nt ---
Progress Note Date of Service Jul 12, 2016. Subjective Pt evaluation today including: conversation w/ patient, physical exam, chart review, lab review, review of studies, conversation w/ recruiting consultant, review of inpatient medication list Offers no new complaints today. Continues tolerating antibiotics. No fever. All Other Systems: Reviewed and Negative Medications Current Inpatient Medications Medications (Trade) Dose Ordered Sig/Diane Route Start Time Stop Time Status Last Admin Dose Admin Acetaminophen (Tylenol Tab) 650 mg Q4H PRN PO 07/03/16 03:45 08/02/16 03:44 07/03/16 23:34 650 MG Al Hydrox/Mg Hydrox/Simethicone (Maalox Max Susp) 15 ml Q4H PRN PO 07/03/16 03:45 08/02/16 03:44 Magnesium Hydroxide (Milk Of Magnesia Susp) 30 ml Q6H PRN PO 07/03/16 03:45 08/02/16 03:44 Polyethylene (Miralax Powder Packet) 17 gm DAILY PRN PO 07/03/16 03:45 08/02/16 03:44 Ondansetron HCl (Zofran Inj) 4 mg Q6H PRN IV 07/03/16 03:45 08/02/16 03:44 07/12/16 16:45 4 MG Hydromorphone HCl 1 mg 1 mg Q4 PRN IV 07/03/16 03:45 07/17/16 03:44 07/12/16 16:10 1 MG Sodium Chloride (Nss 1000ml) 1,000 ml @ 80 mls/hr [id number] IV 07/03/16 03:45 08/02/16 03:44 07/12/16 11:51 80 MLS/HR Diphenhydramine HCl (Benadryl Inj) 25 mg Q4 PRN IV 07/03/16 03:45 08/02/16 03:44 07/12/16 16:09 25 MG Gabapentin (Neurontin Tab) 600 mg BID PO 07/03/16 09:00 08/02/16 08:59 07/12/16 08:27 600 MG Senna (Senokot Tab) 17.2 mg HS PO 07/03/16 21:00 08/02/16 20:59 Docusate Sodium (coLACE CAP) 100 mg BID PO 07/03/16 09:00 08/02/16 08:59 Heparin Sodium (Porcine) (Heparin 100 Unit/ml 5ml Flush) 5 ml PRN PRN IV 07/03/16 19:45 08/02/16 19:44 Oxycodone HCl 20 mg 20 mg Q12 PO 07/06/16 09:00 07/20/16 08:59 07/12/16 08:28 20 MG Ertapenem/Sodium Chloride (Invanz Iv/Nss Ad-Van 50ml) 50 ml @ 120 mls/hr Q24H IV 07/06/16 10:00 07/20/16 09:59 07/12/16 10:00 120 MLS/HR Linezolid (Zyvox Tab) 600 mg BID PO 07/06/16 21:00 07/20/16 20:59 07/12/16 08:28 600 MG Oxycodone/ Acetaminophen (Percocet 5-325mg Tab) `1-2 tabs for pain 1 tab ... Q4H PRN PO 07/06/16 16:45 07/20/16 16:44 07/12/16 17:47 2 TAB Acetaminophen/ Butalbital/ Caffeine (Fioricet Tab) 1 tab Q8H PRN PO 07/09/16 18:30 08/08/16 18:29 07/09/16 22:15 1 TAB Lactobacillus Acidophilus (Floranex Tab) 4 tab TIDM PO 07/10/16 17:45 08/09/16 17:44 07/12/16 17:46 4 TAB Objective Vital Signs Date Time Temp Pulse Resp B/P Pulse Ox O2 Delivery O2 Flow Rate FiO2 07/12/16 18:56 36.7 83 18 96/59 94 Room Air 07/12/16 17:49 36.6 87 18 111/69 96 Room Air 07/12/16 16:43 36.7 87 16 128/78 96 Room Air 07/12/16 15:50 36.7 87 16 102/61 96 Room Air 07/12/16 15:00 Room Air 07/12/16 15:00 Room Air 07/12/16 14:50 36.3 72 14 92/63 95 Room Air 07/12/16 14:36 37.0 62 16 102/56 95 Room Air 07/12/16 14:31 36.8 85 16 112/65 95 Room Air 07/12/16 14:26 36.9 69 18 98/53 96 Room Air 07/12/16 14:21 36.9 68 18 104/59 94 Room Air 07/12/16 14:16 37.0 77 18 99/60 94 Room Air 07/12/16 14:11 37.0 79 16 119/49 95 Room Air 07/12/16 14:06 37.0 71 16 119/65 97 Room Air 07/12/16 08:00 Room Air 07/12/16 07:07 36.7 77 18 110/77 97 Room Air 07/12/16 00:15 Room Air 07/11/16 23:28 36.6 88 17 120/76 98 Room Air Physical Exam General Appearance: WD/WN, no apparent distress Eyes: normal inspection, sclerae normal (The) ENT: normal ENT inspection, pharynx normal Neck: supple, no adenopathy, trachea midline Respiratory/Chest: lungs clear, normal breath sounds, no respiratory distress Cardiovascular: regular rate, rhythm, no gallop, no murmur Abdomen: normal bowel sounds, non tender, soft, no organomegaly Extremities: non-tender, no calf tenderness Neurologic/Psychiatric: alert, oriented x 3 Skin: normal color, no rash Lymphatic: no adenopathy Assessment and Plan 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 Will need to follow CBC, inflammatory markers, and CMP while on antibiotics. Will discuss with all involved.
[2016-07-12] MEDS: SENNA 8.6 MG TAB PO SCH (20:46)
--- NOTE | 2016-07-12 20:52 | Progress Note ---
Medicine Progress Note Date & Time of Visit: Jul 12, 2016 at 20:49. Subjective seen resting bed comfortable s/p replacement of Muller today denies pain on the insertion site left shoulder about the same no other symptoms Objective Last 8 Hrs Date Time Temp Pulse Resp B/P Pulse Ox O2 Delivery O2 Flow Rate FiO2 07/12/16 18:56 36.7 83 18 96/59 94 Room Air 07/12/16 17:49 36.6 87 18 111/69 96 Room Air 07/12/16 16:43 36.7 87 16 128/78 96 Room Air 07/12/16 15:50 36.7 87 16 102/61 96 Room Air 07/12/16 15:00 Room Air 07/12/16 15:00 Room Air 07/12/16 14:50 36.3 72 14 92/63 95 Room Air 07/12/16 14:36 37.0 62 16 102/56 95 Room Air 07/12/16 14:31 36.8 85 16 112/65 95 Room Air 07/12/16 14:26 36.9 69 18 98/53 96 Room Air 07/12/16 14:21 36.9 68 18 104/59 94 Room Air 07/12/16 14:16 37.0 77 18 99/60 94 Room Air 07/12/16 14:11 37.0 79 16 119/49 95 Room Air 07/12/16 14:06 37.0 71 16 119/65 97 Room Air Physical Exam: General- oriented x 3, not in distress Eyes- anicteric Neck- no JVD Lungs- clear to auscultation bilaterally, no rales/wheezes Chest- Old Muller site cath: wounds healing, no bleeding/discharge/swelling; (+ ) mild erythema New muller site: no bleeding, swelling Heart- normal , regular rhythm; no murmur Abdomen- normal bowel sounds, soft, nontender Extremities- no pretibial edema, no calf tenderness Neuro- alert, oriented x 3;no gross deficits Skin- warm & dry Assessment & Plan BACTEREMIA - FROM RECURRENT SHOULDER INFECTION VS. MULLER CATH INFECTION -Blood culture x 1 bottle grew VRE and proteus sp -was on IV Vancomycin and Rocephin as outpatient and earlier part of this admission for prior right shoulder infection, this was changed to ertapenem and Linezolid by ID -ID consulted, recommended removal of Muller catheter and culture -s/p Removal of Muller Cath Cath tip culture: no growth so far s/p Replacement of Cath - continue Linezolid and Ertapenem antibiotic duration per ID, appreciate the input SUSPECTED RIGHT SHOULDER INFECTION, Recurrent -s/p I&D POD #6 -US on admission showed fluid collection -MRI: partially imaged 2.5 x 0.5 cm SQ fluid collection deep to scar does not appear significantly changed, superficial to deltoid muscle, possibly postop seroma vs. infected fluid collection; no joint effusion; mild supraspinatus tendinopathy; subacromial/ subdeltoid bursa possible mild bursitis; circumferential tear/ degeneration fo labrum, mild nonspecific edema of deltoid muscle-possibly postop change or myositis - s/p incision and wound exploration debridement fat and fascia and closure over drains intra-op cultures: gram stain no organisms, culture pending but no growth thus far -pain well controlled, continue pain regimen DIARRHEA: -stool culture and C.diff negative - stable HYPOKALEMIA: -replaced, K normal CHRONIC ANEMIA: -Hb ranging from 8-10 -monitor and transfuse as needed Disposition possible d/c home when cleared by Ortho and ID Current Inpatient Medications: Current Inpatient Medications Medications (Trade) Dose Ordered Sig/Diane Route Start Time Stop Time Status Last Admin Dose Admin Acetaminophen (Tylenol Tab) 650 mg Q4H PRN PO 07/03/16 03:45 08/02/16 03:44 07/03/16 23:34 650 MG Al Hydrox/Mg Hydrox/Simethicone (Maalox Max Susp) 15 ml Q4H PRN PO 07/03/16 03:45 08/02/16 03:44 Magnesium Hydroxide (Milk Of Magnesia Susp) 30 ml Q6H PRN PO 07/03/16 03:45 08/02/16 03:44 Polyethylene (Miralax Powder Packet) 17 gm DAILY PRN PO 07/03/16 03:45 08/02/16 03:44 Ondansetron HCl (Zofran Inj) 4 mg Q6H PRN IV 07/03/16 03:45 08/02/16 03:44 07/12/16 16:45 4 MG Hydromorphone HCl 1 mg 1 mg Q4 PRN IV 07/03/16 03:45 07/17/16 03:44 07/12/16 16:10 1 MG Sodium Chloride (Nss 1000ml) 1,000 ml @ 80 mls/hr [id number] IV 07/03/16 03:45 08/02/16 03:44 07/12/16 11:51 80 MLS/HR Diphenhydramine HCl (Benadryl Inj) 25 mg Q4 PRN IV 07/03/16 03:45 08/02/16 03:44 07/12/16 16:09 25 MG Gabapentin (Neurontin Tab) 600 mg BID PO 07/03/16 09:00 08/02/16 08:59 07/12/16 08:27 600 MG Senna (Senokot Tab) 17.2 mg HS PO 07/03/16 21:00 08/02/16 20:59 Docusate Sodium (coLACE CAP) 100 mg BID PO 07/03/16 09:00 08/02/16 08:59 Heparin Sodium (Porcine) (Heparin 100 Unit/ml 5ml Flush) 5 ml PRN PRN IV 07/03/16 19:45 08/02/16 19:44 Oxycodone HCl 20 mg 20 mg Q12 PO 07/06/16 09:00 07/20/16 08:59 07/12/16 08:28 20 MG Ertapenem/Sodium Chloride (Invanz Iv/Nss Ad-Van 50ml) 50 ml @ 120 mls/hr Q24H IV 07/06/16 10:00 07/20/16 09:59 07/12/16 10:00 120 MLS/HR Linezolid (Zyvox Tab) 600 mg BID PO 07/06/16 21:00 07/20/16 20:59 07/12/16 08:28 600 MG Oxycodone/ Acetaminophen (Percocet 5-325mg Tab) `1-2 tabs for pain 1 tab ... Q4H PRN PO 07/06/16 16:45 07/20/16 16:44 07/12/16 17:47 2 TAB Acetaminophen/ Butalbital/ Caffeine (Fioricet Tab) 1 tab Q8H PRN PO 07/09/16 18:30 08/08/16 18:29 07/09/16 22:15 1 TAB Lactobacillus Acidophilus (Floranex Tab) 4 tab TIDM PO 07/10/16 17:45 08/09/16 17:44 07/12/16 17:46 4 TAB
[2016-07-13] MEDS: HYDROmorphone INJ 1 MG/ML SYR IV PRN ×6 (00:48→23:45)
[2016-07-13] MEDS: DiphenhydrAMINE HCL 50 MG/ML VIAL IV PRN ×6 (00:48→23:45)
[2016-07-13] MEDS: SODIUM CHLORIDE 0.9% 1000ML 1,000 ML IV SCH ×2 (00:49→13:44)
[2016-07-13] MEDS: OXYCODONE/ACETAMINOPHEN 5-325 TAB PO PRN ×4 (04:13→21:55)
[2016-07-13 06:25] LABS: BASO ABS # 0.08 K/uL (0-0.2); EOS % 8.1 %; HEMATOCRIT 30.4 % (42-52); IG% 0.4 %; LYMPH % 36.7 %; LYMPH ABS # 2.87 K/uL (1.2-3.4); MEAN CELL VOLUME 70.7 fL (80-100); MEAN CORPUSCULAR HEMOGLOBIN 21.4 pg (25-34); MEAN CORPUSCULAR HGB CONC 30.3 g/dl (32-36); MEAN PLATELET VOLUME 9.5 fL (7.4-10.4); MONO % 6.6 %; NEUT % 47.2 %; PLATELET COUNT 328 K/uL (130-400); WHITE BLOOD COUNT 7.82 K/uL (4.8-10.8)
[2016-07-13 06:56] LABS: BUN/CREATININE RATIO 9.9 (10-20); CREATININE 1.1 mg/dl (0.60-1.40); POTASSIUM 3.7 mmol/L (3.5-5.1)
[2016-07-13 07:03] LABS: COMPLETE YES
[2016-07-13 07:14] VITALS: BP 102/54; PULSE 95; TEMP 36.9; O2SAT 96
[2016-07-13] MEDS: DOCUSATE SODIUM 100 MG CAP PO SCH ×3 (09:00→21:05)
[2016-07-13] MEDS: LACTOBACILLUS ACIDOPHILUS (FLORANEX) TAB PO SCH ×3 (09:12→18:21)
[2016-07-13] MEDS: GABAPENTIN 600 MG TAB PO SCH ×2 (09:14→21:06)
[2016-07-13] MEDS: LINEZOLID 600 MG TAB PO SCH ×2 (09:14→21:05)
[2016-07-13] MEDS: OXYCODONE HCL 20 MG TABCR (OXYCONTIN) PO SCH ×2 (09:15→21:04)
[2016-07-13] MEDS: ERTAPENEM IV 1 GM in SODIUM CHLOR 0.9% AD-VAN 50ML 50 ML IV SCH (10:42)
[2016-07-13 15:11] VITALS: BP 154/85; PULSE 93; TEMP 36.6; O2SAT 95
[2016-07-13] MEDS: ONDANSETRON INJ 2 MG/ML 2 ML VIAL IV PRN (18:21)
--- NOTE | 2016-07-13 20:25 | Progress Note ---
Medicine Progress Note Date & Time of Visit: Jul 13, 2016 at 20:18. Subjective states he feels ok overall pain on the patten site and shoulder well controlled no weakness, chills, nausea, abdominal pain, dyspnea, dizziness no other symptoms Objective Last 8 Hrs Date Time Temp Pulse Resp B/P Pulse Ox O2 Delivery O2 Flow Rate FiO2 07/13/16 15:40 Room Air 07/13/16 15:11 36.6 93 20 154/85 95 Room Air Physical Exam: General- oriented x 3, not in distress Neck- no JVD Lungs- clear, no rales/wheezes bilaterally Chest- Old Patten site cath: wounds healing, no bleeding/discharge/swelling New patten site: no bleeding, swelling, has mild tenderness Heart- normal rate, regular rhythm; no murmur Abdomen- normal bowel sounds, soft, nontender Extremities- no pretibial edema, no calf tenderness right shoulder- dressing in place: clean, no swelling, warmth, erythema, has mild tenderness Neuro- alert, oriented x 3;no gross deficits Skin- warm & dry Laboratory Results: Last 24 Hours Test 07/13/16 06:00 White Blood Count 7.82 K/uL Red Blood Count 4.30 M/uL Hemoglobin 9.2 g/dL Hematocrit 30.4 % Mean Corpuscular Volume 70.7 fL Mean Corpuscular Hemoglobin 21.4 pg Mean Corpuscular Hemoglobin Concent 30.3 g/dl Platelet Count 328 K/uL Mean Platelet Volume 9.5 fL Neutrophils (%) (Auto) 47.2 % Lymphocytes (%) (Auto) 36.7 % Monocytes (%) (Auto) 6.6 % Eosinophils (%) (Auto) 8.1 % Basophils (%) (Auto) 1.0 % Neutrophils # (Auto) 3.69 K/uL Lymphocytes # (Auto) 2.87 K/uL Monocytes # (Auto) 0.52 K/uL Eosinophils # (Auto) 0.63 K/uL Basophils # (Auto) 0.08 K/uL RDW Standard Deviation 42.4 fL RDW Coefficient of Variation 16.3 % Immature Granulocyte % (Auto) 0.4 % Immature Granulocyte # (Auto) 0.03 K/uL Red Blood Cell Morphology Unremarkable Sodium Level 142 mmol/L Potassium Level 3.7 mmol/L Chloride Level 106 mmol/L Carbon Dioxide Level 30 mmol/L Anion Gap 6.0 mmol/L Blood Urea Nitrogen 11 mg/dl Creatinine 1.10 mg/dl Est Creatinine Clear Calc Drug Dose 101.5 ml/min Estimated GFR () 98.2 Estimated GFR (Non- 84.7 BUN/Creatinine Ratio 9.9 Random Glucose 126 mg/dl Calcium Level 8.0 mg/dl Assessment & Plan BACTEREMIA - FROM RECURRENT SHOULDER INFECTION VS. PATTEN CATH INFECTION -Blood culture x 1 bottle grew VRE and proteus sp -was on IV Vancomycin and Rocephin as outpatient and earlier part of this admission for prior right shoulder infection, this was changed to ertapenem and Linezolid by ID -ID consulted, recommended removal of Patten catheter and culture - s/p Removal of Patten Cath Cath tip culture: no growth so far s/p Replacement of Cath no acute issues - afebrile, no leukocytosis - continue Linezolid and Ertapenem will need prolonged antibiotic course final recommendations per Dr. Bailey, appreciate the input SUSPECTED RIGHT SHOULDER INFECTION, Recurrent -s/p I&D POD #7 -US on admission showed fluid collection -MRI: partially imaged 2.5 x 0.5 cm SQ fluid collection deep to scar does not appear significantly changed, superficial to deltoid muscle, possibly postop seroma vs. infected fluid collection; no joint effusion; mild supraspinatus tendinopathy; subacromial/ subdeltoid bursa possible mild bursitis; circumferential tear/ degeneration fo labrum, mild nonspecific edema of deltoid muscle-possibly postop change or myositis - s/p incision and wound exploration debridement fat and fascia and closure over drains intra-op cultures: gram stain no organisms, culture pending but no growth thus far -pain well controlled, continue pain regimen DIARRHEA: -stool culture and C.diff negative - stable HYPOKALEMIA: -replaced, K normal CHRONIC ANEMIA: -Hb ranging from 8-10 -monitor and transfuse as needed Disposition possible d/c home tomorrow Current Inpatient Medications: Current Inpatient Medications Medications (Trade) Dose Ordered Sig/Diane Route Start Time Stop Time Status Last Admin Dose Admin Acetaminophen (Tylenol Tab) 650 mg Q4H PRN PO 07/03/16 03:45 08/02/16 03:44 07/03/16 23:34 650 MG Al Hydrox/Mg Hydrox/Simethicone (Maalox Max Susp) 15 ml Q4H PRN PO 07/03/16 03:45 08/02/16 03:44 Magnesium Hydroxide (Milk Of Magnesia Susp) 30 ml Q6H PRN PO 07/03/16 03:45 08/02/16 03:44 Polyethylene (Miralax Powder Packet) 17 gm DAILY PRN PO 07/03/16 03:45 08/02/16 03:44 Ondansetron HCl (Zofran Inj) 4 mg Q6H PRN IV 07/03/16 03:45 08/02/16 03:44 07/13/16 18:21 4 MG Hydromorphone HCl 1 mg 1 mg Q4 PRN IV 07/03/16 03:45 07/17/16 03:44 07/13/16 18:23 1 MG Sodium Chloride (Nss 1000ml) 1,000 ml @ 80 mls/hr [id number] IV 07/03/16 03:45 08/02/16 03:44 07/13/16 13:44 80 MLS/HR Diphenhydramine HCl (Benadryl Inj) 25 mg Q4 PRN IV 07/03/16 03:45 08/02/16 03:44 07/13/16 18:22 25 MG Gabapentin (Neurontin Tab) 600 mg BID PO 07/03/16 09:00 08/02/16 08:59 07/13/16 09:14 600 MG Senna (Senokot Tab) 17.2 mg HS PO 07/03/16 21:00 08/02/16 20:59 Docusate Sodium (coLACE CAP) 100 mg BID PO 07/03/16 09:00 08/02/16 08:59 Heparin Sodium (Porcine) (Heparin 100 Unit/ml 5ml Flush) 5 ml PRN PRN IV 07/03/16 19:45 08/02/16 19:44 Oxycodone HCl 20 mg 20 mg Q12 PO 07/06/16 09:00 07/20/16 08:59 07/13/16 09:15 20 MG Ertapenem/Sodium Chloride (Invanz Iv/Nss Ad-Van 50ml) 50 ml @ 120 mls/hr Q24H IV 07/06/16 10:00 07/20/16 09:59 07/13/16 10:42 120 MLS/HR Linezolid (Zyvox Tab) 600 mg BID PO 07/06/16 21:00 07/20/16 20:59 07/13/16 09:14 600 MG Oxycodone/ Acetaminophen (Percocet 5-325mg Tab) `1-2 tabs for pain 1 tab ... Q4H PRN PO 07/06/16 16:45 07/20/16 16:44 07/13/16 15:45 2 TAB Acetaminophen/ Butalbital/ Caffeine (Fioricet Tab) 1 tab Q8H PRN PO 07/09/16 18:30 08/08/16 18:29 07/09/16 22:15 1 TAB Lactobacillus Acidophilus (Floranex Tab) 4 tab TIDM PO 07/10/16 17:45 08/09/16 17:44 07/13/16 18:21 4 TAB
[2016-07-13] MEDS: SENNA 8.6 MG TAB PO SCH ×2 (21:00→21:05)
[2016-07-13 23:19] VITALS: BP 153/78; PULSE 95; TEMP 36.6; O2SAT 95
[2016-07-14] MEDS: HYDROmorphone INJ 1 MG/ML SYR IV PRN ×4 (05:46→22:48)
[2016-07-14] MEDS: DiphenhydrAMINE HCL 50 MG/ML VIAL IV PRN ×4 (05:46→22:46)
[2016-07-14 06:09] LABS: BASO % 0.6 %; BASO ABS # 0.05 K/uL (0-0.2); HEMATOCRIT 30.1 % (42-52); IG% 0.6 %; LYMPH % 33.7 %; MEAN CELL VOLUME 70.5 fL (80-100); MEAN CORPUSCULAR HEMOGLOBIN 21.5 pg (25-34); MEAN CORPUSCULAR HGB CONC 30.6 g/dl (32-36); MEAN PLATELET VOLUME 9.6 fL (7.4-10.4); NEUT % 49.1 %; PLATELET COUNT 356 K/uL (130-400); RED BLOOD COUNT 4.27 M/uL (4.7-6.1); WHITE BLOOD COUNT 8.31 K/uL (4.8-10.8)
[2016-07-14 06:43] LABS: BUN/CREATININE RATIO 9.7 (10-20); CALCIUM 8.1 mg/dl (8.5-10.1); POTASSIUM 3.7 mmol/L (3.5-5.1)
[2016-07-14 08:16] LABS: COMPLETE YES; HYPOCHROMIA PRESENT; MICROCYTOSIS PRESENT
[2016-07-14 08:40] VITALS: BP 92/53; PULSE 79; TEMP 36.5; O2SAT 95
[2016-07-14] MEDS: DOCUSATE SODIUM 100 MG CAP PO SCH ×2 (09:00→21:00)
[2016-07-14] MEDS: OXYCODONE HCL 20 MG TABCR (OXYCONTIN) PO SCH ×2 (09:07→21:24)
[2016-07-14] MEDS: GABAPENTIN 600 MG TAB PO SCH ×2 (09:07→21:23)
[2016-07-14] MEDS: LACTOBACILLUS ACIDOPHILUS (FLORANEX) TAB PO SCH ×3 (09:08→17:54)
[2016-07-14] MEDS: LINEZOLID 600 MG TAB PO SCH ×2 (09:09→21:23)
[2016-07-14] MEDS: ERTAPENEM IV 1 GM in SODIUM CHLOR 0.9% AD-VAN 50ML 50 ML IV SCH (10:48)
[2016-07-14 16:09] VITALS: BP 127/79; PULSE 79; TEMP 36.7; O2SAT 95
[2016-07-14 16:30] VITALS: O2SAT 95
--- NOTE | 2016-07-14 17:22 | Progress Note ---
Medicine Progress Note Date & Time of Visit: Jul 14, 2016 at 17:07. Subjective patient seen resting , comfortable, using cellphone states he feels fine overall pain from the muller site is improving shoulder pain also improving no other symptoms Objective Last 8 Hrs Date Time Temp Pulse Resp B/P Pulse Ox O2 Delivery O2 Flow Rate FiO2 07/14/16 16:30 95 Room Air 07/14/16 16:09 36.7 79 18 127/79 95 Room Air Physical Exam: General- oriented x 3, not in distress Neck- no JVD Lungs- clear breath sounds, no rales/wheezes bilaterally Chest- Old Muller site cath: wounds healing, no bleeding/discharge/swelling New muller site: no bleeding, swelling, tenderness Heart- normal rate, regular rhythm; no murmur Abdomen- normal bowel sounds, soft, nontender Extremities- no pretibial edema, no calf tenderness right shoulder- surgical wound well opposed, healing well, no discharge/swelling /bleeding Neuro- alert, oriented x 3;no gross deficits Skin- warm & dry Laboratory Results: Last 24 Hours Test 07/14/16 05:34 White Blood Count 8.31 K/uL Red Blood Count 4.27 M/uL Hemoglobin 9.2 g/dL Hematocrit 30.1 % Mean Corpuscular Volume 70.5 fL Mean Corpuscular Hemoglobin 21.5 pg Mean Corpuscular Hemoglobin Concent 30.6 g/dl Platelet Count 356 K/uL Mean Platelet Volume 9.6 fL Neutrophils (%) (Auto) 49.1 % Lymphocytes (%) (Auto) 33.7 % Monocytes (%) (Auto) 7.0 % Eosinophils (%) (Auto) 9.0 % Basophils (%) (Auto) 0.6 % Neutrophils # (Auto) 4.08 K/uL Lymphocytes # (Auto) 2.80 K/uL Monocytes # (Auto) 0.58 K/uL Eosinophils # (Auto) 0.75 K/uL Basophils # (Auto) 0.05 K/uL RDW Standard Deviation 41.5 fL RDW Coefficient of Variation 16.1 % Immature Granulocyte % (Auto) 0.6 % Immature Granulocyte # (Auto) 0.05 K/uL Hypochromasia PRESENT Microcytosis PRESENT Sodium Level 142 mmol/L Potassium Level 3.7 mmol/L Chloride Level 105 mmol/L Carbon Dioxide Level 29 mmol/L Anion Gap 8.0 mmol/L Blood Urea Nitrogen 10 mg/dl Creatinine 1.00 mg/dl Est Creatinine Clear Calc Drug Dose 111.7 ml/min Estimated GFR () 110.2 Estimated GFR (Non- 95.1 BUN/Creatinine Ratio 9.7 Random Glucose 91 mg/dl Calcium Level 8.1 mg/dl Assessment & Plan BACTEREMIA, PROTEUS AND VANCOMYCIN RESISTANT ENTEROCOCCUS - Blood culture x 1 bottle grew VRE and proteus sp - was on IV Vancomycin and Rocephin as outpatient and earlier part of this admission for prior right shoulder infection, changed to ertapenem and Linezolid by ID - ID consulted, recommended removal of Muller catheter and culture - s/p Removal of Muller Cath by Dr. Ewing Cath tip culture: no growth so far s/p Replacement of Cath by Dr. Ewing no acute issues - afebrile, no leukocytosis -- discussed with Dr. Bailey, recommending: Ertapenem 1g IV daily x 4 weeks (via PICC, case picker arranged home health) Linezolid 600mg BID x 4 weeks - follow up with Dr. Bailey in 1 week SUSPECTED RIGHT SHOULDER INFECTION -s/p I&D POD #8 -US on admission showed fluid collection -MRI: partially imaged 2.5 x 0.5 cm SQ fluid collection deep to scar does not appear significantly changed, superficial to deltoid muscle, possibly postop seroma vs. infected fluid collection; no joint effusion; mild supraspinatus tendinopathy; subacromial/ subdeltoid bursa possible mild bursitis; circumferential tear/ degeneration fo labrum, mild nonspecific edema of deltoid muscle-possibly postop change or myositis - s/p incision and wound exploration debridement fat and fascia and closure over drains intra-op cultures: Negative - pain well controlled - follow up with Ortho Dr. Byrd in 1 week for wound check DIARRHEA: -stool culture and C.diff negative - stable HYPOKALEMIA: -replaced, K normal CHRONIC ANEMIA: -Hb ranging from 8-10 -monitor and transfuse as needed Disposition d/c home ff up with PCP in 3-5 days ff up with Dr. Bailey in [address] Byrd in 1 week Current Inpatient Medications: Current Inpatient Medications Medications (Trade) Dose Ordered Sig/Diane Route Start Time Stop Time Status Last Admin Dose Admin Acetaminophen (Tylenol Tab) 650 mg Q4H PRN PO 07/03/16 03:45 08/02/16 03:44 07/03/16 23:34 650 MG Al Hydrox/Mg Hydrox/Simethicone (Maalox Max Susp) 15 ml Q4H PRN PO 07/03/16 03:45 08/02/16 03:44 Magnesium Hydroxide (Milk Of Magnesia Susp) 30 ml Q6H PRN PO 07/03/16 03:45 08/02/16 03:44 Polyethylene (Miralax Powder Packet) 17 gm DAILY PRN PO 07/03/16 03:45 08/02/16 03:44 Ondansetron HCl (Zofran Inj) 4 mg Q6H PRN IV 07/03/16 03:45 08/02/16 03:44 07/13/16 18:21 4 MG Diphenhydramine HCl (Benadryl Inj) 25 mg Q4 PRN IV 07/03/16 03:45 08/02/16 03:44 07/14/16 16:33 25 MG Gabapentin (Neurontin Tab) 600 mg BID PO 07/03/16 09:00 08/02/16 08:59 07/14/16 09:07 600 MG Senna (Senokot Tab) 17.2 mg HS PO 07/03/16 21:00 08/02/16 20:59 Docusate Sodium (coLACE CAP) 100 mg BID PO 07/03/16 09:00 08/02/16 08:59 Oxycodone HCl 20 mg 20 mg Q12 PO 07/06/16 09:00 07/20/16 08:59 07/14/16 09:07 20 MG Ertapenem/Sodium Chloride (Invanz Iv/Nss Ad-Van 50ml) 50 ml @ 120 mls/hr Q24H IV 07/06/16 10:00 07/20/16 09:59 07/14/16 10:48 120 MLS/HR Linezolid (Zyvox Tab) 600 mg BID PO 07/06/16 21:00 07/20/16 20:59 07/14/16 09:09 600 MG Oxycodone/ Acetaminophen (Percocet 5-325mg Tab) `1-2 tabs for pain 1 tab ... Q4H PRN PO 07/06/16 16:45 07/20/16 16:44 07/13/16 21:55 2 TAB Acetaminophen/ Butalbital/ Caffeine (Fioricet Tab) 1 tab Q8H PRN PO 07/09/16 18:30 08/08/16 18:29 07/09/16 22:15 1 TAB Lactobacillus Acidophilus (Floranex Tab) 4 tab TIDM PO 07/10/16 17:45 08/09/16 17:44 07/14/16 12:33 4 TAB Heparin Sodium (Porcine) (Heparin 10 Unit/ ml 5 ml Flush) 5 ml PRN PRN FLUSH 07/14/16 06:15 08/13/16 06:14 07/14/16 13:18 5 ML Hydromorphone HCl (Dilaudid Inj) 1 mg Q6H PRN IV 07/14/16 22:00 07/28/16 21:59 UNV
[2016-07-14] MEDS ORDERED: LINE1TAB7 PO (17:32)
[2016-07-14] MEDS ORDERED: ERTA1INJ IV (17:32)
--- NOTE | 2016-07-14 17:47 | Discharge Instructions ---
Discharge Instructions Admission Reason for Admission: Abcess Of Rt Shoulder Discharge Discharge Diagnosis / Problem: BLOODSTREAM INFECTION Discharge Goals Goal(s): Diagnostic testing, Therapeutic intervention Activity Recommendations Activity Limitations: resume your previous activity Driving or Machine Use: no driving while taking oxycontin or oxycodone . Instructions / Follow-Up Instructions / Follow-Up PLEASE REVIEW YOUR MEDICATION LIST AND FOLLOW INSTRUCTIONS CAREFULLY. CALL YOUR PRIMARY CARE PHYSICIAN OR RETURN TO ER IMMEDIATELY IF WITH RECURRENCE OF SYMPTOMS, FEVER/CHILLS, WEAKNESS, NAUSEA. OBSERVE PROPER DAILY WOUND CARE. STRICT HANDWASHING WITH SOAP (PREFERABLY ANTIBACTERIAL) AND WATER (AT LEAST 30 SECONDS) WITH DAILY WOUND CARE AND HANDLING OF CATHETER. FOLLOW UP WITH YOUR PRIMARY CARE PHYSICIAN IN 3-5 DAYS. YOU WILL NEED REPEAT BLOOD WORK AND FURTHER WORK UP FOR ANEMIA. FOLLOW UP WITH DR. BOWER (ORTHO) IN WEEK. TEL NO. FOLLOW UP WITH DR. BAILEY IN 1 WEEK. Current Hospital Diet Patient's current hospital diet: Regular Diet Discharge Diet Recommended Diet: Regular Diet Procedures Procedures Performed: Irrigation and Debridement Right Shoulder Removal of Patten catheter Insertion of Patten catheter Pending Studies Studies pending at discharge: yes List of pending studies: Follow up with Primary Care Physician and Dr. Bailey for bloodwork Medical Emergencies . Who to Call and When: Medical Emergencies: If at any time you feel your situation is an emergency, please call 911 immediately. . Non-Emergent Contact Non-Emergency issues call your: Primary Care Provider Call Non-Emergent contact if: you have a fever, your pain is not controlled, wound has increased drainage, wound has increased redness, wound has increased pain, you have any medication questions . . "Provider Documentation" section prepared by Ross Nazario. VTE Core Measure Inpt VTE Proph given/why not?: SCD's [place] Drug Monitoring Program Search Results: patient reviewed within database, no issues identified
[2016-07-14 18:05] LABS: FERRITIN 10.7 ng/ml (8.0-388.0)
--- NOTE | 2016-07-14 18:49 | Infectious Disease Progress Nt ---
Progress Note Date of Service Jul 14, 2016. Subjective Pt evaluation today including: conversation w/ patient, physical exam, chart review, lab review, review of studies, conversation w/ data processing systems consultant, review of inpatient medication list S patient offering no new complaints today. Remains afebrile. Some pain from site of Patten removal, no increase in shoulder pain. Continues to tolerate current antibiotics. All Other Systems: Reviewed and Negative Medications Current Inpatient Medications Medications (Trade) Dose Ordered Sig/Diane Route Start Time Stop Time Status Last Admin Dose Admin Acetaminophen (Tylenol Tab) 650 mg Q4H PRN PO 07/03/16 03:45 08/02/16 03:44 07/03/16 23:34 650 MG Al Hydrox/Mg Hydrox/Simethicone (Maalox Max Susp) 15 ml Q4H PRN PO 07/03/16 03:45 08/02/16 03:44 Magnesium Hydroxide (Milk Of Magnesia Susp) 30 ml Q6H PRN PO 07/03/16 03:45 08/02/16 03:44 Polyethylene (Miralax Powder Packet) 17 gm DAILY PRN PO 07/03/16 03:45 08/02/16 03:44 Ondansetron HCl (Zofran Inj) 4 mg Q6H PRN IV 07/03/16 03:45 08/02/16 03:44 07/13/16 18:21 4 MG Diphenhydramine HCl (Benadryl Inj) 25 mg Q4 PRN IV 07/03/16 03:45 08/02/16 03:44 07/14/16 16:33 25 MG Gabapentin (Neurontin Tab) 600 mg BID PO 07/03/16 09:00 08/02/16 08:59 07/14/16 09:07 600 MG Senna (Senokot Tab) 17.2 mg HS PO 07/03/16 21:00 08/02/16 20:59 Docusate Sodium (coLACE CAP) 100 mg BID PO 07/03/16 09:00 08/02/16 08:59 Oxycodone HCl 20 mg 20 mg Q12 PO 07/06/16 09:00 07/20/16 08:59 07/14/16 09:07 20 MG Ertapenem/Sodium Chloride (Invanz Iv/Nss Ad-Van 50ml) 50 ml @ 120 mls/hr Q24H IV 07/06/16 10:00 07/20/16 09:59 07/14/16 10:48 120 MLS/HR Linezolid (Zyvox Tab) 600 mg BID PO 07/06/16 21:00 07/20/16 20:59 07/14/16 09:09 600 MG Oxycodone/ Acetaminophen (Percocet 5-325mg Tab) `1-2 tabs for pain 1 tab ... Q4H PRN PO 07/06/16 16:45 07/20/16 16:44 07/13/16 21:55 2 TAB Acetaminophen/ Butalbital/ Caffeine (Fioricet Tab) 1 tab Q8H PRN PO 07/09/16 18:30 08/08/16 18:29 07/09/16 22:15 1 TAB Lactobacillus Acidophilus (Floranex Tab) 4 tab TIDM PO 07/10/16 17:45 08/09/16 17:44 07/14/16 17:54 4 TAB Heparin Sodium (Porcine) (Heparin 10 Unit/ ml 5 ml Flush) 5 ml PRN PRN FLUSH 07/14/16 06:15 08/13/16 06:14 07/14/16 13:18 5 ML Hydromorphone HCl (Dilaudid Inj) 1 mg Q6H PRN IV 07/14/16 22:00 07/28/16 21:59 Objective Vital Signs Date Time Temp Pulse Resp B/P Pulse Ox O2 Delivery O2 Flow Rate FiO2 07/14/16 16:30 95 Room Air 07/14/16 16:09 36.7 79 18 127/79 95 Room Air 07/14/16 09:00 Room Air 07/14/16 08:40 36.5 79 18 92/53 95 Room Air 07/14/16 00:00 Room Air 07/13/16 23:19 36.6 95 18 153/78 95 Room Air Physical Exam General Appearance: WD/WN, no apparent distress Eyes: normal inspection, EOMI, sclerae normal ENT: normal ENT inspection, hearing grossly normal, pharynx normal Neck: supple, no adenopathy, trachea midline Respiratory/Chest: chest non-tender, lungs clear, normal breath sounds, no respiratory distress Cardiovascular: regular rate, rhythm, no gallop, no murmur Abdomen: normal bowel sounds, non tender, soft, no organomegaly Extremities: non-tender, no calf tenderness, normal capillary refill Neurologic/Psychiatric: alert, oriented x 3 Skin: normal color, no rash, + pertinent finding ( Surgical dressing intact, no increase right shoulder erythema or swelling.) Lymphatic: no adenopathy Laboratory Results Last 24 Hours Test 07/14/16 05:34 07/14/16 17:55 White Blood Count 8.31 K/uL Red Blood Count 4.27 M/uL Hemoglobin 9.2 g/dL Hematocrit 30.1 % Mean Corpuscular Volume 70.5 fL Mean Corpuscular Hemoglobin 21.5 pg Mean Corpuscular Hemoglobin Concent 30.6 g/dl Platelet Count 356 K/uL Mean Platelet Volume 9.6 fL Neutrophils (%) (Auto) 49.1 % Lymphocytes (%) (Auto) 33.7 % Monocytes (%) (Auto) 7.0 % Eosinophils (%) (Auto) 9.0 % Basophils (%) (Auto) 0.6 % Neutrophils # (Auto) 4.08 K/uL Lymphocytes # (Auto) 2.80 K/uL Monocytes # (Auto) 0.58 K/uL Eosinophils # (Auto) 0.75 K/uL Basophils # (Auto) 0.05 K/uL RDW Standard Deviation 41.5 fL RDW Coefficient of Variation 16.1 % Immature Granulocyte % (Auto) 0.6 % Immature Granulocyte # (Auto) 0.05 K/uL Hypochromasia PRESENT Microcytosis PRESENT Sodium Level 142 mmol/L Potassium Level 3.7 mmol/L Chloride Level 105 mmol/L Carbon Dioxide Level 29 mmol/L Anion Gap 8.0 mmol/L Blood Urea Nitrogen 10 mg/dl Creatinine 1.00 mg/dl Est Creatinine Clear Calc Drug Dose 111.7 ml/min Estimated GFR () 110.2 Estimated GFR (Non- 95.1 BUN/Creatinine Ratio 9.7 Random Glucose 91 mg/dl Calcium Level 8.1 mg/dl Iron Level 23 mcg/dl Total Iron Binding Capacity 400 mcg/dl Transferrin 315 mg/dl Transferrin % Saturation 5 % Ferritin 10.7 ng/ml Assessment and Plan 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 Will need to follow CBC, inflammatory markers, and CMP while on antibiotics. Follow up within 2 weeks after discharge.
[2016-07-14] MEDS: OXYCODONE/ACETAMINOPHEN 5-325 TAB PO PRN (19:39)
[2016-07-14] MEDS: SENNA 8.6 MG TAB PO SCH (21:00)
[2016-07-15 00:32] VITALS: BP 129/73; PULSE 86; TEMP 36.7; O2SAT 95
[2016-07-15] MEDS: OXYCODONE/ACETAMINOPHEN 5-325 TAB PO PRN ×2 (00:37→09:47)
[2016-07-15] MEDS: DiphenhydrAMINE HCL 50 MG/ML VIAL IV PRN ×2 (04:49→11:07)
[2016-07-15] MEDS: HYDROmorphone INJ 1 MG/ML SYR IV PRN ×2 (04:50→11:03)
[2016-07-15 06:25] LABS: BASO % 0.6 %; BASO ABS # 0.06 K/uL (0-0.2); EOS % 7.2 %; HEMATOCRIT 31.6 % (42-52); IG% 0.5 %; LYMPH % 29.6 %; LYMPH ABS # 3.22 K/uL (1.2-3.4); MEAN CELL VOLUME 71.2 fL (80-100); MEAN CORPUSCULAR HEMOGLOBIN 21.2 pg (25-34); MEAN CORPUSCULAR HGB CONC 29.7 g/dl (32-36); MEAN PLATELET VOLUME 9.1 fL (7.4-10.4); MONO % 7.2 %; NEUT % 54.9 %; PLATELET COUNT 360 K/uL (130-400); RED BLOOD COUNT 4.44 M/uL (4.7-6.1); WHITE BLOOD COUNT 10.88 K/uL (4.8-10.8)
[2016-07-15 06:50] LABS: BUN/CREATININE RATIO 9.6 (10-20); CALCIUM 8.5 mg/dl (8.5-10.1); CREATININE 1.1 mg/dl (0.60-1.40); POTASSIUM 3.9 mmol/L (3.5-5.1)
[2016-07-15 07:11] LABS: COMPLETE YES; HYPOCHROMIA PRESENT; OVALOCYTES 1+
[2016-07-15 07:43] VITALS: BP 86/54; PULSE 94; TEMP 36.8; O2SAT 94
[2016-07-15] MEDS ORDERED: FERROUS SULFATE 325 MG TAB PO SCH (08:30)
[2016-07-15] MEDS: GABAPENTIN 600 MG TAB PO SCH (08:45)
[2016-07-15] MEDS: LACTOBACILLUS ACIDOPHILUS (FLORANEX) TAB PO SCH (08:45)
[2016-07-15] MEDS: OXYCODONE HCL 20 MG TABCR (OXYCONTIN) PO SCH (08:46)
[2016-07-15] MEDS: DOCUSATE SODIUM 100 MG CAP PO SCH (08:46)
[2016-07-15] MEDS: LINEZOLID 600 MG TAB PO SCH (08:46)
--- NOTE | 2016-07-15 09:39 | Progress Note ---
Medicine Progress Note Date & Time of Visit: Jul 15, 2016 at 09:35. Subjective states he feels fine overall resting in bed, comfortable pain well controlled denies other symptoms states he is ready for discharge today Objective Last 8 Hrs Date Time Temp Pulse Resp B/P Pulse Ox O2 Delivery O2 Flow Rate FiO2 07/15/16 07:43 36.8 94 18 86/54 94 Room Air Physical Exam: General- oriented x 3, not in distress Neck- no JVD Lungs- clear breath sounds, no rales/wheezes b/l Chest- Old Muller site cath: wounds healing, no bleeding/discharge/swelling New muller site: no bleeding, swelling, tenderness Heart- normal rate, regular rhythm; no murmur Abdomen- normal bowel sounds, soft, nontender Extremities- no pretibial edema, no calf tenderness right shoulder- surgical wound well opposed, healing well, no discharge/swelling /bleeding Neuro- alert, oriented x 3;no gross deficits Skin- warm & dry Laboratory Results: Last 24 Hours Test 07/14/16 17:55 07/15/16 05:52 Vitamin B12 Level 939 pg/mL Folate 11.26 ng/mL White Blood Count 10.88 K/uL Red Blood Count 4.44 M/uL Hemoglobin 9.4 g/dL Hematocrit 31.6 % Mean Corpuscular Volume 71.2 fL Mean Corpuscular Hemoglobin 21.2 pg Mean Corpuscular Hemoglobin Concent 29.7 g/dl Platelet Count 360 K/uL Mean Platelet Volume 9.1 fL Neutrophils (%) (Auto) 54.9 % Lymphocytes (%) (Auto) 29.6 % Monocytes (%) (Auto) 7.2 % Eosinophils (%) (Auto) 7.2 % Basophils (%) (Auto) 0.6 % Neutrophils # (Auto) 5.99 K/uL Lymphocytes # (Auto) 3.22 K/uL Monocytes # (Auto) 0.78 K/uL Eosinophils # (Auto) 0.78 K/uL Basophils # (Auto) 0.06 K/uL RDW Standard Deviation 42.6 fL RDW Coefficient of Variation 16.2 % Immature Granulocyte % (Auto) 0.5 % Immature Granulocyte # (Auto) 0.05 K/uL Hypochromasia PRESENT Ovalocytes 1+ Sodium Level 141 mmol/L Potassium Level 3.9 mmol/L Chloride Level 104 mmol/L Carbon Dioxide Level 28 mmol/L Anion Gap 9.0 mmol/L Blood Urea Nitrogen 11 mg/dl Creatinine 1.10 mg/dl Est Creatinine Clear Calc Drug Dose 101.5 ml/min Estimated GFR () 98.2 Estimated GFR (Non- 84.7 BUN/Creatinine Ratio 9.6 Random Glucose 106 mg/dl Calcium Level 8.5 mg/dl Assessment & Plan BACTEREMIA, PROTEUS AND VANCOMYCIN RESISTANT ENTEROCOCCUS - Blood culture x 1 bottle grew VRE and proteus sp - was on IV Vancomycin and Rocephin as outpatient and earlier part of this admission for prior right shoulder infection, changed to ertapenem and Linezolid by ID - ID consulted, recommended removal of Muller catheter and culture - s/p Removal of Muller Cath by Dr. Ewing Cath tip culture: no growth so far s/p Replacement of Cath by Dr. Ewing no acute issues - afebrile, no leukocytosis -- discussed with Dr. Bailey, recommending: Ertapenem 1g IV daily x 4 weeks (via PICC, manager case arranged home health) Linezolid 600mg BID x 4 weeks - follow up with Dr. Bailey in 1 week SUSPECTED RIGHT SHOULDER INFECTION -s/p I&D POD #9 -US on admission showed fluid collection -MRI: partially imaged 2.5 x 0.5 cm SQ fluid collection deep to scar does not appear significantly changed, superficial to deltoid muscle, possibly postop seroma vs. infected fluid collection; no joint effusion; mild supraspinatus tendinopathy; subacromial/ subdeltoid bursa possible mild bursitis; circumferential tear/ degeneration fo labrum, mild nonspecific edema of deltoid muscle-possibly postop change or myositis - s/p incision and wound exploration debridement fat and fascia and closure over drains intra-op cultures: Negative - pain well controlled - follow up with Ortho Dr. Byrd in 1 week for wound check DIARRHEA: -stool culture and C.diff negative - stable HYPOKALEMIA: -replaced, K normal CHRONIC ANEMIA: -Hb ranging from 8-10 - anemia panel shows Iron 23 Fe SO4 ordered - patient counselled that he needs to ff up with his PCP for monitoring and further work up. he verbalized agreement and understanding with above plan of care Disposition d/c home ff up with PCP in 3-5 days ff up with Dr. Bailey in [address] Byrd in 1 week Current Inpatient Medications: Current Inpatient Medications Medications (Trade) Dose Ordered Sig/Diane Route Start Time Stop Time Status Last Admin Dose Admin Acetaminophen (Tylenol Tab) 650 mg Q4H PRN PO 07/03/16 03:45 08/02/16 03:44 07/03/16 23:34 650 MG Al Hydrox/Mg Hydrox/Simethicone (Maalox Max Susp) 15 ml Q4H PRN PO 07/03/16 03:45 08/02/16 03:44 Magnesium Hydroxide (Milk Of Magnesia Susp) 30 ml Q6H PRN PO 07/03/16 03:45 08/02/16 03:44 Polyethylene (Miralax Powder Packet) 17 gm DAILY PRN PO 07/03/16 03:45 08/02/16 03:44 Ondansetron HCl (Zofran Inj) 4 mg Q6H PRN IV 07/03/16 03:45 08/02/16 03:44 07/13/16 18:21 4 MG Diphenhydramine HCl (Benadryl Inj) 25 mg Q4 PRN IV 07/03/16 03:45 08/02/16 03:44 07/15/16 04:49 25 MG Gabapentin (Neurontin Tab) 600 mg BID PO 07/03/16 09:00 08/02/16 08:59 07/15/16 08:45 600 MG Senna (Senokot Tab) 17.2 mg HS PO 07/03/16 21:00 08/02/16 20:59 Docusate Sodium (coLACE CAP) 100 mg BID PO 07/03/16 09:00 08/02/16 08:59 Oxycodone HCl 20 mg 20 mg Q12 PO 07/06/16 09:00 07/20/16 08:59 07/15/16 08:46 20 MG Ertapenem/Sodium Chloride (Invanz Iv/Nss Ad-Van 50ml) 50 ml @ 120 mls/hr Q24H IV 07/06/16 10:00 07/20/16 09:59 07/14/16 10:48 120 MLS/HR Linezolid (Zyvox Tab) 600 mg BID PO 07/06/16 21:00 07/20/16 20:59 07/15/16 08:46 600 MG Oxycodone/ Acetaminophen (Percocet 5-325mg Tab) `1-2 tabs for pain 1 tab ... Q4H PRN PO 07/06/16 16:45 07/20/16 16:44 07/15/16 00:37 2 TAB Acetaminophen/ Butalbital/ Caffeine (Fioricet Tab) 1 tab Q8H PRN PO 07/09/16 18:30 08/08/16 18:29 07/09/16 22:15 1 TAB Lactobacillus Acidophilus (Floranex Tab) 4 tab TIDM PO 07/10/16 17:45 08/09/16 17:44 07/15/16 08:45 4 TAB Heparin Sodium (Porcine) (Heparin 10 Unit/ ml 5 ml Flush) 5 ml PRN PRN FLUSH 07/14/16 06:15 08/13/16 06:14 07/15/16 06:17 5 ML Hydromorphone HCl (Dilaudid Inj) 1 mg Q6H PRN IV 07/14/16 22:00 07/28/16 21:59 07/15/16 04:50 1 MG Ferrous Sulfate (Feosol Tab) 325 mg BIDM PO 07/15/16 08:30 08/14/16 08:29 07/15/16 08:47 325 MG
[2016-07-15] MEDS ORDERED: FRRS300 PO (09:42)
[2016-07-15] MEDS: ERTAPENEM IV 1 GM in SODIUM CHLOR 0.9% AD-VAN 50ML 50 ML IV SCH (09:46)
--- NOTE | 2016-07-15 09:49 | Discharge Summary ---
Discharge Summary Admission Date: Jul 03, 2016 at 03:51 Discharge Date: Jul 15, 2016 Discharge Disposition: Home with services Principal Diagnosis: BACTEREMIA, PROTEUS AND VANCOMYCIN RESISTANT ENTEROCOCCUS Secondary Diagnoses/Problems: ANEMIA *PLEASE REFER TO HOSPITAL COURSE BELOW. Procedures: - s/p Removal of Patten Cath by Dr. Ewing s/p Replacement of Cath by Dr. Ewing s/p Right Shoulder Debridement by Dr. Byrd Consultations: Ortho Dr. Byrd, ID Dr. Bailey, Vascular Surgeon Dr. Ewing Pending Studies/Follow-Up: Please refer to hospital course below. Medication Reconciliation New Medications: Ertapenem Sodium (Invanz) 1 Gm Inj 1 GM IV DAILY for 30 Days, VIAL Ferrous Sulfate (Ferrous Sulfate) 325 Mg Tab 325 MG PO BIDM for 30 Days, #60 TAB 2 Refills Linezolid (Zyvox) 600 Mg Tab 600 MG PO BID for 30 Days, #60 TAB 0 Refills Continued Medications: Diphenhydramine Hcl (Benadryl Allergy) 25 Mg Cap 25 CAP PO DAILY PRN for Itching for 30 Days, #750 CAP 1 Refill Gabapentin (Neurontin) 600 Mg Tab 600 MG PO BID Oxycodone Hcl (Oxycodone Hcl) 20 Mg Tab 20 MG PO EVERY 4 TO 6 HOURS PRN for Pain Oxycodone Hcl (Oxycontin) 15 Mg Tab 15 MG PO Q12, TAB Potassium Chloride (Micro-K Ext Rel) 10 Meq Capcr 20 MEQ PO BID, CAP Senna (Senokot) 8.6 Mg Tab 17.2 MG PO HS, TAB Discontinued Medications: Ceftriaxone Sod (Ceftriaxone Sodium) 2 Gm Inj 2 GM IV DAILY [vancomycin hcl 1000] () 2000 MG IV Q12 pt receiving 2000 mg vancomycin in nss q 12 hours Admission Information HPI (per Admitting provider): This is a 40 year old male with recurrent right shoulder infections; has has multiple surgeries in the past secondary to rotator cuff and biceps tendinopathy ; which led to multiple infections, cellulitis and abscesses, most recently drained in March 2016 - was sent home with IV Vancomycin and IV Rocephin for a total of 6-8 weeks as per ID. States that about 6 days prior, he developed worsening of the shoulder pain, it became warm to touch and stiffer. States that this morning, it worsened and now has became rock solid. He states he spiked a fever at home of 103. Presented here with the shoulder pain and had a fever here as well. U/S of the right upper extremity suggests fluid collection and abscess. Physical Exam (per Admitting): General Appearance: + mild distress ENT: hearing grossly normal Neck: supple Respiratory/Chest: lungs clear, normal breath sounds, no respiratory distress, no accessory muscle use Cardiovascular: regular rate, rhythm, no edema, no murmur Abdomen/GI: normal bowel sounds, non tender, soft Extremities/Musculoskelatal: + pertinent finding Neurologic/Psych: no motor/sensory deficits, alert, normal mood/affect Hospital Course BACTEREMIA, PROTEUS AND VANCOMYCIN RESISTANT ENTEROCOCCUS - Blood culture x 1 bottle grew VRE and proteus sp - was on IV Vancomycin and Rocephin as outpatient and earlier part of this admission for prior right shoulder infection, changed to ertapenem and Linezolid by ID - ID consulted, recommended removal of Patten catheter and culture - s/p Removal of Patten Cath by Dr. Ewing Cath tip culture: no growth so far s/p Replacement of Cath by Dr. Ewing no acute issues - afebrile, no leukocytosis -- discussed with Dr. Bailey, recommending: Ertapenem 1g IV daily x 4 weeks (via PICC, behavioral health case manager arranged home health) Linezolid 600mg BID x 4 weeks - follow up with Dr. Bailey in 1 week SUSPECTED RIGHT SHOULDER INFECTION -s/p I&D POD #9 -US on admission showed fluid collection -MRI: partially imaged 2.5 x 0.5 cm SQ fluid collection deep to scar does not appear significantly changed, superficial to deltoid muscle, possibly postop seroma vs. infected fluid collection; no joint effusion; mild supraspinatus tendinopathy; subacromial/ subdeltoid bursa possible mild bursitis; circumferential tear/ degeneration fo labrum, mild nonspecific edema of deltoid muscle-possibly postop change or myositis - s/p incision and wound exploration debridement fat and fascia and closure over drains intra-op cultures: Negative - pain well controlled - follow up with Ortho Dr. Byrd in 1 week for wound check CHRONIC ANEMIA: -Hb ranging from 8-10 - anemia panel shows Iron 23 Fe SO4 ordered - patient counselled that he needs to ff up with his PCP for monitoring and further work up. he verbalized agreement and understanding with above plan of care DIARRHEA: -stool culture and C.diff negative - stable HYPOKALEMIA: -replaced, K normal Disposition d/c home ff up with PCP in 3-5 days ff up with Dr. Bailey in [address] Byrd in 1 week Total time spent on discharge = 40 minutes This includes examination of the patient, discharge planning, medication reconciliation, and communication with other providers. Discharge Instructions Discharge Instructions Admission Reason for Admission: Abcess Of Rt Shoulder Discharge Discharge Diagnosis / Problem: BLOODSTREAM INFECTION Discharge Goals Goal(s): Diagnostic testing, Therapeutic intervention Activity Recommendations Activity Limitations: resume your previous activity Driving or Machine Use: no driving while taking oxycontin or oxycodone . Instructions / Follow-Up Instructions / Follow-Up PLEASE REVIEW YOUR MEDICATION LIST AND FOLLOW INSTRUCTIONS CAREFULLY. CALL YOUR PRIMARY CARE PHYSICIAN OR RETURN TO ER IMMEDIATELY IF WITH RECURRENCE OF SYMPTOMS, FEVER/CHILLS, WEAKNESS, NAUSEA. OBSERVE PROPER DAILY WOUND CARE. STRICT HANDWASHING WITH SOAP (PREFERABLY ANTIBACTERIAL) AND WATER (AT LEAST 30 SECONDS) WITH DAILY WOUND CARE AND HANDLING OF CATHETER. FOLLOW UP WITH YOUR PRIMARY CARE PHYSICIAN IN 3-5 DAYS. YOU WILL NEED REPEAT BLOOD WORK AND FURTHER WORK UP FOR ANEMIA. FOLLOW UP WITH DR. BYRD (ORTHO) IN WEEK. TEL NO. FOLLOW UP WITH DR. BAILEY IN 1 WEEK. Current Hospital Diet Patient's current hospital diet: Regular Diet Discharge Diet Recommended Diet: Regular Diet Procedures Procedures Performed: Irrigation and Debridement Right Shoulder Removal of Patten catheter Insertion of Patten catheter Pending Studies Studies pending at discharge: yes List of pending studies: Follow up with Primary Care Physician and Dr. Bailey for bloodwork Medical Emergencies . Who to Call and When: Medical Emergencies: If at any time you feel your situation is an emergency, please call 911 immediately. . Non-Emergent Contact Non-Emergency issues call your: Primary Care Provider Call Non-Emergent contact if: you have a fever, your pain is not controlled, wound has increased drainage, wound has increased redness, wound has increased pain, you have any medication questions . . "Provider Documentation" section prepared by Ross Nazario. VTE Core Measure Inpt VTE Proph given/why not?: SCD's [place] Drug Monitoring Program Search Results: patient reviewed within database, no issues identified
[2016-07-15 11:25] VITALS: BP 86/54; PULSE 94; TEMP 36.8; O2SAT 94
[2016-09-29] MEDS ORDERED: LCTX PO (14:33)
[2016-09-29] MEDS ORDERED: POTA10PO PO (14:33)
[2016-09-29] MEDS ORDERED: OXYC20TA32 PO (14:33)
[2016-09-29] MEDS ORDERED: OXYC20TA50 PO (14:33)
[2016-09-29] MEDS ORDERED: SLWMEC PO (14:33)
[2016-09-29] MEDS ORDERED: CNCI50 IV (14:45)
[2016-09-29] MEDS ORDERED: DAPT500I IV (14:45)
[2016-09-29] MEDS ORDERED: PIPE1INJ11 IV (14:45)
[2016-12-28] MEDS ORDERED: ONDA4TAB46 PO (15:23)
[2016-12-28] MEDS ORDERED: PRT40 PO (15:23)
[2016-12-28] MEDS ORDERED: MTR800 PO (15:23)
[2016-12-28] MEDS ORDERED: DFL100 PO (15:23)
== END 2016-07-15 12:41 | disposition home health service (06) | DRG 855 ==
LOC: ENRESERVDT → CANRESERV → ENRESERVTM → C.EDB 23:09 → C.3E 07-03 03:51 → EDBEDREQSVC 07-03 03:58
PROVIDERS: ADMIT Family Medicine; ATTEND Internal Medicine
PROC: 0J9D0ZZ Drainage of Right Upper Arm Subcutaneous Tissue and Fascia, Open Approach (ICD-10-PCS; principal; 2016-07-06 07:30)
PROC: 05PYX3Z Removal of Infusion Device from Upper Vein, External Approach (ICD-10-PCS; 2016-07-10)
PROC: 02HV33Z Insertion of Infusion Device into Superior Vena Cava, Percutaneous Approach (ICD-10-PCS; 2016-07-12)
DX: R78.81 Bacteremia (principal); M75.01 Adhesive capsulitis of right shoulder; E87.6 Hypokalemia; D64.9 Anemia, unspecified; M60.9 Myositis, unspecified; Z86.14 Personal history of Methicillin resistant Staphylococcus aureus infection; R19.7 Diarrhea, unspecified; G62.9 Polyneuropathy, unspecified; Z16.21 Resistance to vancomycin; Z79.899 Other long term (current) drug therapy; B95.2 Enterococcus as the cause of diseases classified elsewhere; B96.4 Proteus (mirabilis) (morganii) as the cause of diseases classified elsewhere; Z91.041 Radiographic dye allergy status; Z88.5 Allergy status to narcotic agent; Z88.3 Allergy status to other anti-infective agents; Z87.442 Personal history of urinary calculi; Z80.9 Family history of malignant neoplasm, unspecified; Z82.49 Family history of ischemic heart disease and other diseases of the circulatory system; Z83.3 Family history of diabetes mellitus

== ENCOUNTER 2016-09-16 22:31 | Inpatient (IN) | payer OTHER ==
[~2016-09-16] VITALS: Ht 180.3 cm; Wt 104.5 kg
[~2016-09-16 22:31] MED LIST changes: +FRRS300 PO; +LINE1TAB7 PO; -MCRK20 PO; +OXYC15TA89 PO; -OXYC60TA8 PO; +POTA10CA28 PO; -RCPAV2 IV; +SENN-61 PO; -SNK PO; -VNCE1000 IV
[2016-09-16] MEDS ORDERED: ONDANSETRON INJ 2 MG/ML 2 ML VIAL IV STA (22:51)
[2016-09-16] MEDS ORDERED: HYDROmorphone INJ 1 MG/ML SYR IV STA ×2 (22:51→23:48)
[2016-09-16] MEDS ORDERED: KETOROLAC TROMETHAMINE 30 MG/ML VIAL IV STA (22:51)
[2016-09-16] MEDS ORDERED: SODIUM CHLORIDE 0.9% 1000ML 1,000 ML IV ONE (23:00)
[2016-09-16] MEDS ORDERED: ACETAMINOPHEN IV 100 ML IV ONE (23:00)
[2016-09-16] MEDS ORDERED: VANCOMYCIN INJ 1,000 MG in SODIUM CHLORIDE 0.9% 250ML 250 ML IV STA (23:45)
[2016-09-16] MEDS ORDERED: DiphenhydrAMINE HCL 50 MG/ML VIAL IV STA (23:45)
[2016-09-16] MEDS ORDERED: PIPERACILLIN/TAZOBACTAM 4.5 GM/100ML D5W IV STA (23:45)
[2016-09-16 23:47] LABS: BUN/CREATININE RATIO 13.8 (10-20); C-REACTIVE PROTEIN 3.48 mg/dl (0-0.29); CALCIUM 8.5 mg/dl (8.5-10.1); CREATININE 1.3 mg/dl (0.60-1.40); POTASSIUM 3.5 mmol/L (3.5-5.1); URIC ACID 4.6 mg/dl (2.6-7.2)
[2016-09-16 23:50] LABS: ALB/GLOB RATIO 0.8 (0.9-2)
[2016-09-16] MEDS ORDERED: VANCOMYCIN INJ 2,400 MG in SODIUM CHLORIDE 0.9% 500ML 500 ML IV STA (23:50)
[2016-09-17] VITALS (7 sets, daily range): BP systolic 98–159; BP diastolic 62–87; PULSE 93–115; TEMP 36.6–37.2; O2SAT 94–99; Ht 180.3 cm; Wt 104.5 kg
[2016-09-17] MEDS ORDERED: SODIUM CHLORIDE 0.9% 1000ML 1,000 ML IV ONE
[2016-09-17] MEDS ORDERED: DAPTOMYCIN IV ONE ×2
[2016-09-17] MEDS ORDERED: SODIUM CHLORIDE 0.9% IV ONE ×2
[2016-09-17] MEDS ORDERED: ERTA1INJ IV (00:01)
[2016-09-17 00:14] LABS: HEMATOCRIT 34.5 % (42-52); MEAN CORPUSCULAR HEMOGLOBIN 21.8 pg (25-34); MEAN CORPUSCULAR HGB CONC 30.7 g/dl (32-36); MEAN PLATELET VOLUME 9.6 fL (7.4-10.4); PLATELET COUNT 293 K/uL (130-400); RED BLOOD COUNT 4.86 M/uL (4.7-6.1); WHITE BLOOD COUNT 4.28 K/uL (4.8-10.8)
[2016-09-17 00:25] LABS: URINE APPEARANCE CLEAR (CLEAR); URINE BILIRUBIN NEG (NEG); URINE COLOR YELLOW; URINE NITRITE NEG (NEG); URINE SPECIFIC GRAVITY 1.014 (1.000-1.030); UROBILINOGEN NEG (NEG); ZZUR CULT IF INDIC CLEAN CATCH NO
[2016-09-17 00:31] LABS: BASO % 0.2 %; BASO ABS # 0.01 K/uL (0-0.2); COMPLETE YES; EOS % 2.1 %; IG% 0.5 %; LYMPH % 21.5 %; LYMPH ABS # 0.92 K/uL (1.2-3.4); MICROCYTOSIS PRESENT; MONO % 1.2 %; NEUT % 74.5 %; OVALOCYTES 1+
[2016-09-17 00:35] LABS: MANUAL MICROSCOPIC REQUIRED? NO; REVIEW REQ? NO
[2016-09-17 00:38] LABS: LYME DISEASE AB IGG NEG (NEG); LYME DISEASE AB IGM NEG (NEG)
[2016-09-17] MEDS ORDERED: OSELTAMIVIR PHOSPHATE 75 MG CAP PO STA (00:39)
--- NOTE | 2016-09-17 02:23 | History and Physical ---
History & Physical Date & Time of Service: Sep 17, 2016 at 02:23 . Chief Complaint: fever, right shoulder pain, myalgias . Primary Care Physician: No Doctor, Assigned . History of Present Illness Source: patient, hospital records 40 YO male. History of right shoulder injury 2012 with recurrent infections. Followed by Dr. Bailey for ID and Dr. Byrd for Ortho. Last hospitalization at [facility] was 07/02/16. 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 Patten catheter was removed. Debridement of right shoulder was performed. Discharged to home 07/15/16 on IV ertapenem and PO linezolid. Low grade temp over the past week. Worsening right shoulder pain and swelling over past few days. Temp as high as 103 at home. Noted minimal drainage from right shoulder incision. No pain, erythema, drainage from Patten catheter. Having severe pain, not relieved by oxycodone at home. Family members have had influenza. Patient experiencing fever and myalgias; no pharyngitis or cough. . Past Medical/Surgical History Medical Problems: (1) History of MRSA infection Status: Chronic (2) Peripheral neuropathy Status: Chronic Surgical Problems: (1) H/O shoulder surgery Status: Resolved (2) History of dental surgery Status: Resolved (3) S/p closure of anal fissure Status: Resolved (4) S/p kidney stone removal Status: Resolved (5) S/p placement of Patten catheter Status: Resolved (6) Status post debridement Status: Resolved . Family History Cancer Diabetes mellitus Heart disease Hypertension Social History Smoking Status: Never Smoker Alcohol Use: none Drug Use: none Marital Status: Housing status: lives with significant other Occupational Status: employed Immunizations History of Influenza Vaccine: Unknown History of Tetanus Vaccine?: Unknown History of Pneumococcal: No History of Hepatitis B Vaccine: Unknown Multi-Drug Resistant Organisms History of MDRO: Yes Type of MDRO: VRE, MRSA Allergies Coded Allergies: Iodinated Diagnostic Agents (Verified Allergy, Severe, anaphylaxis, ) Levofloxacin (Verified Allergy, Intermediate, RASH, 09/16/16) Patient received Levaquin during a previous admission (2013) but now has a rash with current administration of IV Levaquin Ciprofloxacin (Verified Allergy, Mild, RASH, 09/16/16) Morphine (Verified Allergy, Unknown, hives, 09/16/16) Home Medications Scheduled Ertapenem Sodium (Invanz), 1 GM IV UD Gabapentin (Neurontin), 600 MG PO BID Linezolid (Zyvox), 600 MG PO BID Oxycodone Hcl (Oxycontin), 15 MG PO Q12 Scheduled PRN Oxycodone Hcl (Oxycodone Hcl), 20 MG PO EVERY 4 TO 6 HOURS PRN for Pain Review of Systems Constitutional: + chills, + fatigue, + fever, + sweats Eyes: No diplopia, No worsening of vision ENT: No nasal symptoms, No sore throat Respiratory: No cough, No shortness of breath, No wheezing Cardiovascular: No chest pain, No edema Abdomen: + nausea, + vomiting, No GI bleeding, No diarrhea, No pain Musculoskeletal: + joint pain, + muscle pain Genitourinary - Male: No hematuria, No urinary frequency Hematologic / Lymphatic: No abnormal bleeding/bruising Integumentary: No rash Physical Exam Vital Signs Date Time Temp Pulse Resp B/P Pulse Ox O2 Delivery O2 Flow Rate FiO2 09/17/16 01:37 120 18 102/85 96 Room Air 09/17/16 00:02 125 18 90/54 95 Room Air 09/16/16 22:34 38.9 137 18 124/50 100 General Appearance: WD/WN, + moderate distress Head: normocephalic, atraumatic Eyes: normal inspection, PERRL, EOMI, sclerae normal ENT: normal ENT inspection, hearing grossly normal, pharynx normal Neck: supple, no adenopathy, thyroid normal, no JVD, trachea midline Respiratory/Chest: lungs clear, no respiratory distress, no accessory muscle use Cardiovascular: regular rate, rhythm, no edema, no gallop, no JVD, no murmur Abdomen/GI: non tender, soft, no organomegaly, no pulsatile mass Extremities/Musculoskelatal: no calf tenderness, + pertinent finding (right shoulder tenderness and swelling; limited range of motion; no drainage) Skin: normal color, warm/dry, no rash, + pertinent finding (Patten cath site without erythema or drainage) Lymphatic: no adenopathy Diagnostics Laboratory Results Results Past 24 Hours Test 09/16/16 23:13 09/16/16 23:18 09/16/16 23:25 09/16/16 23:59 Range/Units White Blood Count 4.28 4.8-10.8 K/uL Red Blood Count 4.86 4.7-6.1 M/uL Hemoglobin 10.6 14.0-18.0 g/dL Hematocrit 34.5 42-52 % Mean Corpuscular Volume 71.0 80-100 fL Mean Corpuscular Hemoglobin 21.8 25-34 pg Mean Corpuscular Hemoglobin Concent 30.7 32-36 g/dl Platelet Count 293 130-400 K/uL Mean Platelet Volume 9.6 7.4-10.4 fL Neutrophils (%) (Auto) 74.5 % Lymphocytes (%) (Auto) 21.5 % Monocytes (%) (Auto) 1.2 % Eosinophils (%) (Auto) 2.1 % Basophils (%) (Auto) 0.2 % Neutrophils # (Auto) 3.19 1.4-6.5 K/uL Lymphocytes # (Auto) 0.92 1.2-3.4 K/uL Monocytes # (Auto) 0.05 0.11-0.59 K/uL Eosinophils # (Auto) 0.09 0-0.5 K/uL Basophils # (Auto) 0.01 0-0.2 K/uL RDW Standard Deviation 43.9 36.4-46.3 fL RDW Coefficient of Variation 16.9 11.5-14.5 % Immature Granulocyte % (Auto) 0.5 % Immature Granulocyte # (Auto) 0.02 0.00-0.02 K/uL Microcytosis PRESENT Ovalocytes 1+ Erythrocyte Sedimentation Rate 25 0-14 mm/hr Sodium Level 141 136-145 mmol/L Potassium Level 3.5 3.5-5.1 mmol/L Chloride Level 106 98-107 mmol/L Carbon Dioxide Level 25 21-32 mmol/L Anion Gap 10.0 3-11 mmol/L Blood Urea Nitrogen 18 7-18 mg/dl Creatinine 1.30 0.60-1.40 mg/dl Est Creatinine Clear Calc Drug Dose 91.6 ml/min Estimated GFR () 80.2 Estimated GFR (Non- 69.2 BUN/Creatinine Ratio 13.8 10-20 Random Glucose 99 70-99 mg/dl Uric Acid 4.6 2.6-7.2 mg/dl Calcium Level 8.5 8.5-10.1 mg/dl Total Bilirubin 0.4 0.2-1 mg/dl Aspartate Amino Transf (AST/SGOT) 26 15-37 U/L Alanine Aminotransferase (ALT/SGPT) 37 12-78 U/L Alkaline Phosphatase 175 45-117 U/L C-Reactive Protein 3.48 0-0.29 mg/dl Total Protein 7.7 6.4-8.2 gm/dl Albumin 3.5 3.4-5.0 gm/dl Globulin 4.2 2.5-4.0 gm/dl Albumin/Globulin Ratio 0.8 0.9-2 Lipase 97 73-393 U/L Lyme Disease IgG Antibody NEG NEG Lyme Disease IgM Antibody NEG NEG Bedside Lactic Acid Venous 2.55 0.90-1.70 mmol/L Bedside Troponin I 0.000 0-0.045 ng/ml Influenza Type A Antigen POS for Influ A NEG Influenza Type B Antigen Neg for Influ B NEG Microbiology Results 09/16/16 Blood Culture, Received Pending 09/16/16 Blood Culture, Received Pending Diagnostic Radiology X-ray right shoulder- interpretation pending. . Impression Assessment and Plan SEPSIS Meets criteria for sepsis- fever, tachycardia, elevated CRP, elevated lactate. Most likely source = recurrent right shoulder infection given symptoms. Consider line infection. Blood cultures obtained in ED. Received IV daptomycin and piperacillin / tazobactam which will be continued. Lowest systolic BP 90. Serum lactate = 2.55. Received fluid resuscitation in ED. Check repeat lactate. Monitor hemodynamic parameters. Consult ID and Ortho. ? INFLUENZA A Family members ill with influenza. 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 No respiratory symptoms, but experiencing fever and myalgias. Rx with course of oseltamivir. CHRONIC / ACUTE PAIN Chronic pain due to right shoulder pathology. [place] PDMP database reviewed. Received Oxycontin 20 mg # 60 and oxycodone 10 mg # 120 on 08/25/16. Continue analgesics per usual outpatient regimen. Continue gabapentin. IV hydromorphone PRN for severe uncontrolled pain. VTE PROPHYLAXIS Moderate risk for VTE. Hold anticoagulants pending Ortho input / plan. SCD's. Ambulate. Transition to prophylactic anticoagulant if no invasive procedures anticipated in immediate future. DISPOSITION Admit to Telemetry Unit due to sepsis. Expected discharge to home. Ortho f/u with Dr. Byrd. ID f/u with Dr. Bailey. . VTE Prophylaxis Risk Level: Moderate Given or contraindicated: SCD's
[2016-09-17] MEDS ORDERED: ACETAMINOPHEN 325 MG TAB PO PRN (02:30)
[2016-09-17] MEDS ORDERED: LORAZEPAM 2 MG/ML 1 ML VIAL IV STA (02:57)
[2016-09-17] MEDS ORDERED: LORAZEPAM INJ 1 MG in SYRINGE 0.5 ML IV ONE (03:00)
[2016-09-17] MEDS: HYDROmorphone INJ 1 MG/ML SYR IV PRN ×6 (03:09→22:29)
[2016-09-17] MEDS ORDERED: OXYC20TA50 PO (03:42)
[2016-09-17] MEDS ORDERED: LACTATED RINGER'S 1000ML 1,000 ML IV SCH (04:00)
[2016-09-17] MEDS ORDERED: PIPERACILL/TAZOBAC CONSULT ACTIVE PRN (04:30)
[2016-09-17] MEDS: PIPERACILL/TAZOBAC IV 3.375 GM in DEXTROSE 5% 100ML 100 ML IV SCH ×3 (04:35→19:09)
[2016-09-17] MEDS: OXYCODONE HCL IR 5 MG TAB (IMMEDIATE RELEASE) PO PRN ×4 (04:36→23:31)
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
--- NOTE | 2016-09-17 07:10 | DIAGNOSTIC IMAGING REPORT ---
RIGHT SHOULDER MIN 2 VIEWS ROUTINE CLINICAL HISTORY: Right shoulder pain and fever. COMPARISON: Right shoulder radiographs April 13, 2016. FINDINGS: Alignment of the right shoulder is anatomic. There may have been a prior distal right clavicular resection. A right internal jugular central venous catheter is partially imaged. There is no acute fracture. There is mild cortical irregularity of the proximal shaft of the right humerus which was not evident on prior exams. IMPRESSION: 1. Mild cortical irregularity of the proximal shaft of right humerus which was not evident on prior exams. This finding is nonspecific and this may be post traumatic, post surgical or infectious in etiology. 2. No acute fracture. Electronically signed by: Onel Alcaraz M.D. 09/17/2016 7:09 AM Dictated Date/Time: 09/17/2016 7:05 AM
[2016-09-17] MEDS: GABAPENTIN 600 MG TAB PO SCH ×2 (08:34→19:54)
[2016-09-17] MEDS: OXYCODONE HCL 20 MG TABCR (OXYCONTIN) PO SCH ×2 (08:34→19:54)
[2016-09-17] MEDS: OSELTAMIVIR PHOSPHATE 75 MG CAP PO SCH ×2 (08:35→19:54)
[2016-09-17] MEDS ORDERED: OXYCODONE HCL 15 MG TABCR (OXYCONTIN) PO SCH (09:00)
[2016-09-17] MEDS ORDERED: ENOXAPARIN 40 MG/0.4 ML SYR SC SCH (09:00)
--- NOTE | 2016-09-17 09:25 | DIAGNOSTIC IMAGING REPORT ---
CHEST ONE VIEW PORTABLE CLINICAL HISTORY: Flu. COMPARISON STUDY: Chest radiograph December 31, 2016. FINDINGS: A right internal jugular central venous catheter is in place. Lung volumes are diminished. This is unchanged. There is no pneumothorax or pleural effusion. Cardiomediastinal silhouette is stable. There is no lobar consolidation. There is pulmonary vascular congestion. IMPRESSION: 1. Pulmonary vascular congestion. 2. No lobar consolidation. Electronically signed by: Onel Alcaraz M.D. 09/17/2016 9:24 AM Dictated Date/Time: 09/17/2016 9:22 AM
[2016-09-17 09:48] LABS: CALCIUM 7.7 mg/dl (8.5-10.1); POTASSIUM 4.2 mmol/L (3.5-5.1)
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
[2016-09-17] MEDS ORDERED: SODIUM CHLORIDE 0.9% 1000ML 1,000 ML IV SCH ×2 (10:45→12:00)
[2016-09-17] MEDS ORDERED: SODIUM CHLORIDE 0.9% 500ML 500 ML IV ONE (11:00)
[2016-09-17] MEDS ORDERED: DiphenhydrAMINE HCL 50 MG/ML VIAL IV SCH (11:15)
[2016-09-17] MEDS ORDERED: DiphenhydrAMINE INJ 25 MG in SYRINGE 0 ML IV SCH (11:15)
--- NOTE | 2016-09-17 11:22 | Progress Note ---
Medicine Progress Note Date & Time of Visit: Sep 17, 2016 at 11:05. Subjective 40 yoM with h/o sepsis 2/2 bacteremia and chronic shoulder infection on [employer]modal customer service abx presents with fever. -found to be flu+ -CXR reveals pulm vascular congestion, however, patient is not hypoxic, tachypneic and doesn't have pulmonary symptoms -labs this am reveals JACQUELINE wtih creatinine 2.0 and lactate still >2 -ordered bolus and NS x 1 more liter with repeat labs at 1500 -patient is shivering and is complaining of pain that is improving--states he has been out of his pain meds for the last couple of weeks and he doesn't think he is withdrawing as he has not really needed pain meds and has not been on them -he has otherwise been doing well at home since discharge in Jun -last week he was exposed to family members with the flu, developed rigors, worsened pain in shoulder and vomiting "from the pain" over the last 3 days, but worse yesterday -denies any drainage from his shoulder wound, but ortho plans for u/s of shoulder. -pt is currently septic Objective Last 8 Hrs Date Time Temp Pulse Resp B/P Pulse Ox O2 Delivery O2 Flow Rate FiO2 09/17/16 08:07 37.2 115 18 98/62 97 Room Air 09/17/16 04:31 37.0 106 16 125/72 97 Room Air 09/17/16 03:45 37.6 97 18 115/67 97 Room Air Physical Exam: GEN: WNWD,vigorous shaking and patient is lying in bed and holding his arm/ guarding, alert and appropriate HEENT: NC/AT, pupils are equal, normal sclerae CARDIO: reg rate, S1/2 heard without m/g/r LUNGS: CTA bilaterally, no crackles, rales or wheezes, good diaphragmatic excursion ABD: soft, non-tender, non-distended, no rebound or guarding, +BS EXTREMITY: no LE swelling or edema, extremities are warm and well-perfused NEURO: CN 2-12 grossly intact, mentating well MUSC: cannot move R arm without picking it up and there is very limited ROM of R arm 2/2 significant pain SKIN: warm and dry and appears pinkish on RUE but this matches LUE Laboratory Results: 09/16/16 23:13 Red Blood Count 4.86, Mean Corpuscular Volume 71.0, Mean Corpuscular Hemoglobin 21.8, Mean Corpuscular Hemoglobin Concent 30.7, Mean Platelet Volume 9.6, Neutrophils (%) (Auto) 74.5, Lymphocytes (%) (Auto) 21.5, Monocytes (%) (Auto) 1.2, Eosinophils (%) (Auto) 2.1, Basophils (%) (Auto) 0.2, Neutrophils # (Auto) 3.19, Lymphocytes # (Auto) 0.92, Monocytes # (Auto) 0.05, Eosinophils # (Auto) 0.09, Basophils # (Auto) 0.01 09/17/16 09:00 Test 09/16/16 00:00 09/16/16 23:13 09/16/16 23:25 09/16/16 23:59 Urine Color YELLOW Urine Appearance CLEAR (CLEAR) Urine pH 5.0 (4.5-7.5) Urine Specific [place] 1.014 (1.000-1.030) Urine Protein NEG (NEG) Urine Glucose (UA) NEG (NEG) Urine Ketones NEG (NEG) Urine Occult Blood NEG (NEG) Urine Nitrite NEG (NEG) Urine Bilirubin NEG (NEG) Urine Urobilinogen NEG (NEG) Urine Leukocyte Esterase NEG (NEG) White Blood Count 4.28 K/uL (4.8-10.8) Red Blood Count 4.86 M/uL (4.7-6.1) Hemoglobin 10.6 g/dL (14.0-18.0) Hematocrit 34.5 % (42-52) Mean Corpuscular Volume 71.0 fL (80-100) Mean Corpuscular Hemoglobin 21.8 pg (25-34) Mean Corpuscular Hemoglobin Concent 30.7 g/dl (32-36) Platelet Count 293 K/uL (130-400) Mean Platelet Volume 9.6 fL (7.4-10.4) Neutrophils (%) (Auto) 74.5 % Lymphocytes (%) (Auto) 21.5 % Monocytes (%) (Auto) 1.2 % Eosinophils (%) (Auto) 2.1 % Basophils (%) (Auto) 0.2 % Neutrophils # (Auto) 3.19 K/uL (1.4-6.5) Lymphocytes # (Auto) 0.92 K/uL (1.2-3.4) Monocytes # (Auto) 0.05 K/uL (0.11-0.59) Eosinophils # (Auto) 0.09 K/uL (0-0.5) Basophils # (Auto) 0.01 K/uL (0-0.2) RDW Standard Deviation 43.9 fL (36.4-46.3) RDW Coefficient of Variation 16.9 % (11.5-14.5) Immature Granulocyte % (Auto) 0.5 % Immature Granulocyte # (Auto) 0.02 K/uL (0.00-0.02) Microcytosis PRESENT Ovalocytes 1+ Erythrocyte Sedimentation Rate 25 mm/hr (0-14) Uric Acid 4.6 mg/dl (2.6-7.2) Total Bilirubin 0.4 mg/dl (0.2-1) Aspartate Amino Transf (AST/SGOT) 26 U/L (15-37) Alanine Aminotransferase (ALT/SGPT) 37 U/L (12-78) Alkaline Phosphatase 175 U/L (45-117) C-Reactive Protein 3.48 mg/dl (0-0.29) Total Protein 7.7 gm/dl (6.4-8.2) Albumin 3.5 gm/dl (3.4-5.0) Globulin 4.2 gm/dl (2.5-4.0) Albumin/Globulin Ratio 0.8 (0.9-2) Lipase 97 U/L (73-393) Lyme Disease IgG Antibody NEG (NEG) Lyme Disease IgM Antibody NEG (NEG) Bedside Troponin I 0.000 ng/ml (0-0.045) Influenza Type A Antigen POS for Influ A (NEG) Influenza Type B Antigen Neg for Influ B (NEG) Test 09/17/16 03:11 09/17/16 09:00 Bedside Lactic Acid Venous 2.29 mmol/L (0.90-1.70) Anion Gap 10.0 mmol/L (3-11) Est Creatinine Clear Calc Drug Dose 60.7 ml/min Estimated GFR () 47.7 Estimated GFR (Non- 41.1 BUN/Creatinine Ratio 10.0 (10-20) Lactic Acid Level 2.6 mmol/L (0.4-2.0) Calcium Level 7.7 mg/dl (8.5-10.1) Date/Time Source Procedure Growth Status 3/25/17 23:25 Blood Blood Culture Pending Received Last 24 Hours Test 09/16/16 23:13 09/16/16 23:18 09/16/16 23:25 09/16/16 23:59 White Blood Count 4.28 K/uL Red Blood Count 4.86 M/uL Hemoglobin 10.6 g/dL Hematocrit 34.5 % Mean Corpuscular Volume 71.0 fL Mean Corpuscular Hemoglobin 21.8 pg Mean Corpuscular Hemoglobin Concent 30.7 g/dl Platelet Count 293 K/uL Mean Platelet Volume 9.6 fL Neutrophils (%) (Auto) 74.5 % Lymphocytes (%) (Auto) 21.5 % Monocytes (%) (Auto) 1.2 % Eosinophils (%) (Auto) 2.1 % Basophils (%) (Auto) 0.2 % Neutrophils # (Auto) 3.19 K/uL Lymphocytes # (Auto) 0.92 K/uL Monocytes # (Auto) 0.05 K/uL Eosinophils # (Auto) 0.09 K/uL Basophils # (Auto) 0.01 K/uL RDW Standard Deviation 43.9 fL RDW Coefficient of Variation 16.9 % Immature Granulocyte % (Auto) 0.5 % Immature Granulocyte # (Auto) 0.02 K/uL Microcytosis PRESENT Ovalocytes 1+ Erythrocyte Sedimentation Rate 25 mm/hr Sodium Level 141 mmol/L Potassium Level 3.5 mmol/L Chloride Level 106 mmol/L Carbon Dioxide Level 25 mmol/L Anion Gap 10.0 mmol/L Blood Urea Nitrogen 18 mg/dl Creatinine 1.30 mg/dl Est Creatinine Clear Calc Drug Dose 91.6 ml/min Estimated GFR () 80.2 Estimated GFR (Non- 69.2 BUN/Creatinine Ratio 13.8 Random Glucose 99 mg/dl Uric Acid 4.6 mg/dl Calcium Level 8.5 mg/dl Total Bilirubin 0.4 mg/dl Aspartate Amino Transf (AST/SGOT) 26 U/L Alanine Aminotransferase (ALT/SGPT) 37 U/L Alkaline Phosphatase 175 U/L C-Reactive Protein 3.48 mg/dl Total Protein 7.7 gm/dl Albumin 3.5 gm/dl Globulin 4.2 gm/dl Albumin/Globulin Ratio 0.8 Lipase 97 U/L Lyme Disease IgG Antibody NEG Lyme Disease IgM Antibody NEG Bedside Lactic Acid Venous 2.55 mmol/L Bedside Troponin I 0.000 ng/ml Influenza Type A Antigen POS for Influ A Influenza Type B Antigen Neg for Influ B Test 09/17/16 03:11 09/17/16 09:00 Bedside Lactic Acid Venous 2.29 mmol/L Sodium Level 141 mmol/L Potassium Level 4.2 mmol/L Chloride Level 107 mmol/L Carbon Dioxide Level 24 mmol/L Anion Gap 10.0 mmol/L Blood Urea Nitrogen 20 mg/dl Creatinine 2.00 mg/dl Est Creatinine Clear Calc Drug Dose 60.7 ml/min Estimated GFR () 47.7 Estimated GFR (Non- 41.1 BUN/Creatinine Ratio 10.0 Random Glucose 92 mg/dl Lactic Acid Level 2.6 mmol/L Calcium Level 7.7 mg/dl Date/Time Source Procedure Growth Status 09/16/16 23:25 Blood Blood Culture Pending Received 09/16/16 23:13 Blood Blood Culture - Preliminary Gram Negative Bacilli Gram Positive Cocci Resulted Diagnostic Imaging: CHEST ONE VIEW PORTABLE CLINICAL HISTORY: Flu. COMPARISON STUDY: Chest radiograph December 31, 2016. FINDINGS: A right internal jugular central venous catheter is in place. Lung volumes are diminished. This is unchanged. There is no pneumothorax or pleural effusion. Cardiomediastinal silhouette is stable. There is no lobar consolidation. There is pulmonary vascular congestion. IMPRESSION: 1. Pulmonary vascular congestion. 2. No lobar consolidation. Assessment & Plan 40 yoM with h/o sepsis 2/2 bacteremia and chronic shoulder infection on intermodal customer service abx presents with fever. 1. Sepsis 2/2 bacteremia-GPCs and GNBs growing in blood cultures. Lactate still >2 and new JACQUELINE on labs this morning. Bolusing 500cc (cautious with vascular congestion seen on CXR) and cont IVF with repeat labs this afternoon. Cont Dapto and Zosyn for now-ID knows patient well and was consulted. Cont Tamiflu for flu A. 2. Chronic R shoulder pain-worse in setting of recent infection. Pt reports recently being off narcotics but now is requiring SR/IR oxy. Cont Gabapentin. Pain consult placed. Appreciate ortho eval of patient-u/s of shoulder was ordered. 3. Pruritis-generalized, patient states this is common for him when he takes IV abx. No rash, swelling or anaphylaxis seen on exam. IV Benadryl was given 4. JACQUELINE-likely 2/2 sepsis--bolusing with IVF and continue for another liter, then will readdress DVT proph: SCDs pending Ortho input for need for procedure Full Code Kamille Nelson DO [facility] Hospitalist Current Inpatient Medications: Current Inpatient Medications Medications (Trade) Dose Ordered Sig/Diane Route Start Time Stop Time Status Last Admin Dose Admin Acetaminophen (Tylenol Tab) 650 mg Q4H PRN PO 09/17/16 02:30 10/17/16 02:29 Gabapentin (Neurontin Tab) 600 mg BID PO 09/17/16 09:00 10/17/16 08:59 09/17/16 08:34 600 MG Oxycodone HCl (Roxicodone Immediate Rel Tab) 20 mg Q6H PRN PO 09/17/16 03:00 10/01/16 02:59 09/17/16 10:33 20 MG Hydromorphone HCl (Dilaudid Inj) 1 mg Q3H PRN IV 09/17/16 03:00 10/01/16 02:59 09/17/16 06:51 1 MG Oxycodone HCl 20 mg 20 mg Q12 PO 09/17/16 09:00 10/01/16 08:59 09/17/16 08:34 20 MG Daptomycin 585 mg/ Sodium Chloride 61.7 ml @ 100 mls/hr DAILY@0030 IV 09/18/16 00:30 09/26/16 01:08 Piperacillin Sod/ Tazobactam Sod/ Dextrose (Zosyn Iv/D5 100ml) 115 ml @ 28 mls/hr Q8H IV 09/17/16 04:00 09/27/16 03:59 09/17/16 04:35 28 MLS/HR Oseltamivir Phosphate (Tamiflu Cap) 75 mg BID PO 09/17/16 09:00 09/21/16 09:01 09/17/16 08:35 75 MG Ondansetron HCl (Zofran Inj) 4 mg Q6H PRN IV 09/17/16 03:45 10/17/16 03:44 Piperacillin Sod/ Tazobactam Sod 1 ea 1 ea UD PRN N/A 09/17/16 04:30 10/17/16 04:29 Sodium Chloride 500 ml @ 500 mls/hr Q1H ONCE IV 09/17/16 11:00 09/17/16 11:59 09/17/16 11:04 500 MLS/HR Sodium Chloride 1,000 ml @ 125 mls/hr Q8H IV 09/17/16 12:00 09/17/16 19:59 Diphenhydramine HCl/Syringe (Benadryl Inj/ Syringe) 0.5 ml @ 1 mls/min ONE IV 09/17/16 11:15 10/17/16 11:14 UNV
--- NOTE | 2016-09-17 11:32 | DIAGNOSTIC IMAGING REPORT ---
RIGHT SHOULDER ULTRASOUND CLINICAL HISTORY: Sepsis. Recurrent right shoulder infection. Evaluate for abscess. COMPARISON STUDY: Right shoulder ultrasound July 03, 2016. FINDINGS: A small subincisional right shoulder fluid collection is again noted. This is similar to exam of July 03, 2016. This small collection measures 3.1 x 0.5 x 3.2 cm. There appears to be a sinus tract extending towards the skin. IMPRESSION: No significant change in the small subincisional right shoulder fluid collection since ultrasound of July 03, 2016. This is nonspecific although the stability and appearance do not suggest an abscess. This may reflect a seroma. Electronically signed by: Onel Alcaraz M.D. 09/17/2016 11:31 AM Dictated Date/Time: 09/17/2016 11:28 AM
[2016-09-17 16:08] LABS: BUN/CREATININE RATIO 8.7 (10-20); CALCIUM 7.3 mg/dl (8.5-10.1); CREATININE 2.6 mg/dl (0.60-1.40); POTASSIUM 4.3 mmol/L (3.5-5.1)
[2016-09-17 16:12] LABS: BASO % 0.1 %; BASO ABS # 0.02 K/uL (0-0.2); COMPLETE YES; DOHLE BODIES 1+; EOS % 2.8 %; IG% 0.3 %; LYMPH % 7.3 %; LYMPH ABS # 1.37 K/uL (1.2-3.4); MEAN CELL VOLUME 71.6 fL (80-100); MEAN CORPUSCULAR HEMOGLOBIN 21.5 pg (25-34); MEAN PLATELET VOLUME 9.6 fL (7.4-10.4); MICROCYTOSIS PRESENT; MONO % 7.1 %; NEUT % 82.4 %; OVALOCYTES 1+; PLATELET COUNT 248 K/uL (130-400); RED BLOOD COUNT 4.05 M/uL (4.7-6.1); WHITE BLOOD COUNT 18.66 K/uL (4.8-10.8)
[2016-09-17] MEDS: SODIUM CHLORIDE 0.9% 1000ML 1,000 ML IV SCH (17:09)
[2016-09-17] MEDS ORDERED: CALCIUM GLUCONATE 10% 2,000 MG in SODIUM CHLORIDE 0.9% 50ML 50 ML IV ONE (17:15)
--- NOTE | 2016-09-17 18:34 | Medical Consult ---
Consultation Date of Consultation: Sep 17, 2016. Attending Physician: Kamille Nelson DO Reason for Consultation: Right shoulder infection History of Present Illness 40-year-old male well known to the Infectious Disease service with history of chronic right shoulder infection requiring multiple surgical debridements, on prolonged IV antibiotic therapy, now returns with 1 week of progressively worsening pain, swelling, and fever to 103 degrees along with minimal drainage from the right shoulder incision. He was started empirically on IV antibiotics with daptomycin and Zosyn. Blood cultures now reported positive for gram- negative bacilli and gram-positive cocci. Patient with severe right shoulder pain, rated 8/10 currently. Has tolerated antibiotics thus far. Has been seen by Orthopedic surgery and MRI scan recommended. Past Medical/Surgical History Medical Problems: (1) Abscess of right arm Status: Acute (2) Cellulitis of shoulder Status: Acute (3) Fever Status: Acute (4) Hypotension Status: Acute (5) Infection of shoulder Status: Acute (6) Right arm cellulitis Status: Acute (7) Sepsis Status: Acute (8) Sepsis Status: Acute (9) Sepsis Status: Acute (10) Septic arthritis of shoulder, right Status: Acute (11) Septic joint of right shoulder region Status: Acute Medical Problems: (1) Cellulitis of shoulder (2) Direct infection of right shoulder in infectious and parasitic diseases classified elsewhere (3) History of MRSA infection (4) Peripheral neuropathy (5) Sepsis Surgical Problems: (1) H/O shoulder surgery (2) History of dental surgery (3) S/p closure of anal fissure (4) S/p kidney stone removal (5) S/p placement of Patten catheter (6) Status post debridement Family History Cancer Diabetes mellitus Heart disease Hypertension Social History Smoking Status: Never Smoker Alcohol Use: none Drug Use: none Marital Status: Housing Status: lives with family Occupation Status: employed Allergies Coded Allergies: Iodinated Diagnostic Agents (Verified Allergy, Severe, anaphylaxis, ) Levofloxacin (Verified Allergy, Intermediate, RASH, 09/16/16) Patient received Levaquin during a previous admission (2013) but now has a rash with current administration of IV Levaquin Ciprofloxacin (Verified Allergy, Mild, RASH, 09/16/16) Morphine (Verified Allergy, Unknown, hives, 09/16/16) Current Inpatient Medications Current Inpatient Medications Medications (Trade) Dose Ordered Sig/Diane Route Start Time Stop Time Status Last Admin Dose Admin Acetaminophen (Tylenol Tab) 650 mg Q4H PRN PO 09/17/16 02:30 10/17/16 02:29 Gabapentin (Neurontin Tab) 600 mg BID PO 09/17/16 09:00 10/17/16 08:59 09/17/16 08:34 600 MG Oxycodone HCl (Roxicodone Immediate Rel Tab) 20 mg Q6H PRN PO 09/17/16 03:00 10/01/16 02:59 09/17/16 17:09 20 MG Hydromorphone HCl (Dilaudid Inj) 1 mg Q3H PRN IV 09/17/16 03:00 10/01/16 02:59 09/17/16 15:19 1 MG Oxycodone HCl 20 mg 20 mg Q12 PO 09/17/16 09:00 10/01/16 08:59 09/17/16 08:34 20 MG Daptomycin 585 mg/ Sodium Chloride 61.7 ml @ 100 mls/hr DAILY@0030 IV 09/18/16 00:30 09/26/16 01:08 Piperacillin Sod/ Tazobactam Sod/ Dextrose (Zosyn Iv/D5 100ml) 115 ml @ 28 mls/hr Q8H IV 09/17/16 04:00 09/27/16 03:59 09/17/16 12:08 28 MLS/HR Oseltamivir Phosphate (Tamiflu Cap) 75 mg BID PO 09/17/16 09:00 09/21/16 09:01 09/17/16 08:35 75 MG Ondansetron HCl (Zofran Inj) 4 mg Q6H PRN IV 09/17/16 03:45 10/17/16 03:44 Piperacillin Sod/ Tazobactam Sod 1 ea 1 ea UD PRN N/A 09/17/16 04:30 10/17/16 04:29 Sodium Chloride (Nss 1000ml) 1,000 ml @ 125 mls/hr Q8H IV 09/17/16 17:00 10/17/16 16:59 09/17/16 17:09 125 MLS/HR Physical Exam Date Time Temp Pulse Resp B/P Pulse Ox O2 Delivery O2 Flow Rate FiO2 09/17/16 16:00 Room Air 09/17/16 15:12 36.9 93 18 117/71 96 Room Air 09/17/16 12:05 36.6 114 18 136/85 99 Room Air 09/17/16 12:00 Room Air 09/17/16 08:07 37.2 115 18 98/62 97 Room Air 09/17/16 08:00 Room Air 09/17/16 04:31 37.0 106 16 125/72 97 Room Air 09/17/16 03:45 37.6 97 18 115/67 97 Room Air 09/17/16 01:37 120 18 102/85 96 Room Air 09/17/16 00:02 125 18 90/54 95 Room Air 09/16/16 22:34 38.9 137 18 124/50 100 General Appearance: WD/WN, + mild distress Head: normocephalic, atraumatic Eyes: normal inspection, EOMI, sclerae normal ENT: normal ENT inspection, hearing grossly normal, pharynx normal Neck: supple, no adenopathy, thyroid normal, trachea midline Respiratory/Chest: chest non-tender, lungs clear, normal breath sounds, no respiratory distress Cardiovascular: regular rate, rhythm, no gallop, no murmur Abdomen/GI: normal bowel sounds, non tender, soft, no organomegaly Back: normal inspection, no CVA tenderness Extremities/Musculoskelatal: no calf tenderness, normal capillary refill, + swelling ( Right shoulder) Neurologic/Psych: alert, oriented x 3 Skin: normal color, no rash, + pertinent finding ( some erythema of the anterior right shoulder with significant tenderness, no drainage) Lymphatic: no adenopathy Laboratory Results Date/Time Source Procedure Growth Status 09/16/16 23:25 Blood Blood Culture Pending Received 09/16/16 23:13 Blood Blood Culture - Preliminary Gram Negative Bacilli Gram Positive Cocci Resulted Last 24 Hours Test 09/16/16 23:13 09/16/16 23:18 09/16/16 23:25 09/16/16 23:59 White Blood Count 4.28 K/uL Red Blood Count 4.86 M/uL Hemoglobin 10.6 g/dL Hematocrit 34.5 % Mean Corpuscular Volume 71.0 fL Mean Corpuscular Hemoglobin 21.8 pg Mean Corpuscular Hemoglobin Concent 30.7 g/dl Platelet Count 293 K/uL Mean Platelet Volume 9.6 fL Neutrophils (%) (Auto) 74.5 % Lymphocytes (%) (Auto) 21.5 % Monocytes (%) (Auto) 1.2 % Eosinophils (%) (Auto) 2.1 % Basophils (%) (Auto) 0.2 % Neutrophils # (Auto) 3.19 K/uL Lymphocytes # (Auto) 0.92 K/uL Monocytes # (Auto) 0.05 K/uL Eosinophils # (Auto) 0.09 K/uL Basophils # (Auto) 0.01 K/uL RDW Standard Deviation 43.9 fL RDW Coefficient of Variation 16.9 % Immature Granulocyte % (Auto) 0.5 % Immature Granulocyte # (Auto) 0.02 K/uL Microcytosis PRESENT Ovalocytes 1+ Erythrocyte Sedimentation Rate 25 mm/hr Sodium Level 141 mmol/L Potassium Level 3.5 mmol/L Chloride Level 106 mmol/L Carbon Dioxide Level 25 mmol/L Anion Gap 10.0 mmol/L Blood Urea Nitrogen 18 mg/dl Creatinine 1.30 mg/dl Est Creatinine Clear Calc Drug Dose 91.6 ml/min Estimated GFR () 80.2 Estimated GFR (Non- 69.2 BUN/Creatinine Ratio 13.8 Random Glucose 99 mg/dl Uric Acid 4.6 mg/dl Calcium Level 8.5 mg/dl Total Bilirubin 0.4 mg/dl Aspartate Amino Transf (AST/SGOT) 26 U/L Alanine Aminotransferase (ALT/SGPT) 37 U/L Alkaline Phosphatase 175 U/L C-Reactive Protein 3.48 mg/dl Total Protein 7.7 gm/dl Albumin 3.5 gm/dl Globulin 4.2 gm/dl Albumin/Globulin Ratio 0.8 Lipase 97 U/L Lyme Disease IgG Antibody NEG Lyme Disease IgM Antibody NEG Bedside Lactic Acid Venous 2.55 mmol/L Bedside Troponin I 0.000 ng/ml Influenza Type A Antigen POS for Influ A Influenza Type B Antigen Neg for Influ B Test 09/17/16 03:11 09/17/16 09:00 09/17/16 15:43 Bedside Lactic Acid Venous 2.29 mmol/L Sodium Level 141 mmol/L 142 mmol/L Potassium Level 4.2 mmol/L 4.3 mmol/L Chloride Level 107 mmol/L 108 mmol/L Carbon Dioxide Level 24 mmol/L 24 mmol/L Anion Gap 10.0 mmol/L 10.0 mmol/L Blood Urea Nitrogen 20 mg/dl 23 mg/dl Creatinine 2.00 mg/dl 2.60 mg/dl Est Creatinine Clear Calc Drug Dose 60.7 ml/min 46.7 ml/min Estimated GFR () 47.7 34.7 Estimated GFR (Non- 41.1 29.9 BUN/Creatinine Ratio 10.0 8.7 Random Glucose 92 mg/dl 93 mg/dl Lactic Acid Level 2.6 mmol/L 1.3 mmol/L Calcium Level 7.7 mg/dl 7.3 mg/dl White Blood Count 18.66 K/uL Red Blood Count 4.05 M/uL Hemoglobin 8.7 g/dL Hematocrit 29.0 % Mean Corpuscular Volume 71.6 fL Mean Corpuscular Hemoglobin 21.5 pg Mean Corpuscular Hemoglobin Concent 30.0 g/dl Platelet Count 248 K/uL Mean Platelet Volume 9.6 fL Neutrophils (%) (Auto) 82.4 % Lymphocytes (%) (Auto) 7.3 % Monocytes (%) (Auto) 7.1 % Eosinophils (%) (Auto) 2.8 % Basophils (%) (Auto) 0.1 % Neutrophils # (Auto) 15.38 K/uL Lymphocytes # (Auto) 1.37 K/uL Monocytes # (Auto) 1.32 K/uL Eosinophils # (Auto) 0.52 K/uL Basophils # (Auto) 0.02 K/uL RDW Standard Deviation 45.2 fL RDW Coefficient of Variation 17.3 % Immature Granulocyte % (Auto) 0.3 % Immature Granulocyte # (Auto) 0.05 K/uL Dohle Bodies 1+ Microcytosis PRESENT Ovalocytes 1+ CLINICAL HISTORY: Sepsis. Recurrent right shoulder infection. Evaluate for abscess. COMPARISON STUDY: Right shoulder ultrasound July 03, 2016. FINDINGS: A small subincisional right shoulder fluid collection is again noted. This is similar to exam of July 03, 2016. This small collection measures 3.1 x 0.5 x 3.2 cm. There appears to be a sinus tract extending towards the skin. IMPRESSION: No significant change in the small subincisional right shoulder fluid collection since ultrasound of July 03, 2016. This is nonspecific although the stability and appearance do not suggest an abscess. This may reflect a seroma. Electronically signed by: Onel Alcaraz M.D. 09/17/2016 11:31 AM Dictated Date/Time: 09/17/2016 11:28 AM Assessment & Plan 40-year-old male with 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 Not clear whether shoulder alone or also with subclavian line as potential site of infection. For now, patient should be continued on broad-spectrum antibiotics pending final culture results and sensitivities. We will discuss with all involved regarding further management. Will follow.
[2016-09-17 22:27] LABS: HEMATOCRIT 27.8 % (42-52); MEAN CELL VOLUME 71.8 fL (80-100); MEAN CORPUSCULAR HEMOGLOBIN 21.7 pg (25-34); MEAN CORPUSCULAR HGB CONC 30.2 g/dl (32-36); MEAN PLATELET VOLUME 8.7 fL (7.4-10.4); PLATELET COUNT 191 K/uL (130-400); RED BLOOD COUNT 3.87 M/uL (4.7-6.1); WHITE BLOOD COUNT 13.61 K/uL (4.8-10.8)
[2016-09-17 22:45] LABS: CALCIUM 7.5 mg/dl (8.5-10.1); CREATININE 3.3 mg/dl (0.60-1.40); POTASSIUM 3.9 mmol/L (3.5-5.1)
[2016-09-18] MEDS ORDERED: DiphenhydrAMINE INJ 25 MG in SYRINGE 0 ML IV ONE
[2016-09-18] MEDS ORDERED: DiphenhydrAMINE HCL 50 MG/ML VIAL IV STA (00:07)
[2016-09-18] MEDS: SODIUM CHLORIDE 0.9% 1000ML 1,000 ML IV SCH ×4 (00:18→23:59)
[2016-09-18] MEDS ORDERED: DAPTOMYCIN IV SCH (00:30)
[2016-09-18] MEDS ORDERED: SODIUM CHLORIDE 0.9% IV SCH (00:30)
[2016-09-18] MEDS: HYDROmorphone INJ 1 MG/ML SYR IV PRN ×6 (01:51→20:20)
[2016-09-18] MEDS: PIPERACILL/TAZOBAC IV 3.375 GM in DEXTROSE 5% 100ML 100 ML IV SCH ×3 (02:29→20:19)
[2016-09-18] MEDS: ONDANSETRON INJ 2 MG/ML 2 ML VIAL IV PRN (02:50)
[2016-09-18 03:48] VITALS: BP 132/93; PULSE 105; TEMP 37.4; O2SAT 97
[2016-09-18] MEDS: OXYCODONE HCL IR 5 MG TAB (IMMEDIATE RELEASE) PO PRN ×3 (06:36→22:32)
[2016-09-18 07:41] LABS: HEMATOCRIT 28.4 % (42-52); MEAN CELL VOLUME 70.5 fL (80-100); MEAN CORPUSCULAR HEMOGLOBIN 21.6 pg (25-34); MEAN CORPUSCULAR HGB CONC 30.6 g/dl (32-36); MEAN PLATELET VOLUME 9.6 fL (7.4-10.4); PLATELET COUNT 206 K/uL (130-400); RED BLOOD COUNT 4.03 M/uL (4.7-6.1)
--- NOTE | 2016-09-18 07:57 | DIAGNOSTIC IMAGING REPORT ---
CHEST ONE VIEW PORTABLE CLINICAL HISTORY: Pulmonary vascular congestion. Influenza. COMPARISON STUDY: 09/17/2016 FINDINGS: The heart is mildly enlarged. There is a right internal jugular central venous catheter present. There is no focal pulmonary consolidation. There is improving pulmonary vascular congestion.[ IMPRESSION: Improving pulmonary vascular congestion. No evidence of focal pulmonary consolidation. Electronically signed by: Daniel Cole M.D. 09/18/2016 7:56 AM Dictated Date/Time: 09/18/2016 7:54 AM
[2016-09-18 08:00] VITALS: BP 144/84; PULSE 100; TEMP 38; O2SAT 95
[2016-09-18 08:11] LABS: BUN/CREATININE RATIO 6.1 (10-20); CALCIUM 7.6 mg/dl (8.5-10.1); MAGNESIUM 1.8 mg/dl (1.8-2.4); PHOSPHORUS 4.5 mg/dl (2.5-4.9)
[2016-09-18] MEDS: GABAPENTIN 600 MG TAB PO SCH ×2 (08:25→20:19)
[2016-09-18] MEDS: OSELTAMIVIR PHOSPHATE 75 MG CAP PO SCH (08:25)
[2016-09-18] MEDS: OXYCODONE HCL 20 MG TABCR (OXYCONTIN) PO SCH ×2 (08:25→20:19)
[2016-09-18 08:36] LABS: BASO % 0.3 %; BASO ABS # 0.04 K/uL (0-0.2); COMPLETE YES; EOS % 5.9 %; IG% 0.2 %; LYMPH % 11.4 %; MONO % 8.9 %; NEUT % 73.3 %; OVALOCYTES 1+
[2016-09-18] MEDS ORDERED: CONSULT PHARMACY STA (10:01)
[2016-09-18] MEDS ORDERED: DAPTOMYCIN CONSULT ACTIVE PRN ×2 (10:15)
[2016-09-18] MEDS ORDERED: [UNRECOGNIZED DRUG - OTHER] PRN (10:15)
--- NOTE | 2016-09-18 11:20 | Pain Management Consultation ---
Pain Management Consultation Date of Consultation Sep 18, 2016. Reason for Consultation Right shoulder pain History Mr. Li is a 40 year old white male that has been admitted for right shoulder pain and infection. Patient does have a significant history of multiple right shoulder surgeries, debridement, and infections. Patient describes a deep aching and intermittent sharp pain. He reports increased swelling in the right upper arm since yesterday. His surgeon is Dr. Byrd. Patient states that the current regimen of OxyContin 20mg BID and Oxycodone 20mg x 6 hours, Gabapentin 600mg TID. Pain is rated 4/10 at its best and 9/10 at its worst. He was recently diagnosed with influenza and states that his symptoms have been improving. He is scheduled for an MRI of the right shoulder today. Patient is utilizing IV Dilaudid PRN breakthrough pain a has used 6mg over the last 24 hours with pain relief. Patient denies any current fevers, chills, nausea, vomiting, neck pain, headache, dizziness. Case discussed with Dr. Lao Past Medical/Surgical History (1) Direct infection of right shoulder in infectious and parasitic diseases classified elsewhere (2) Peripheral neuropathy (3) History of MRSA infection (4) H/O shoulder surgery (5) History of dental surgery (6) S/p placement of Patten catheter (7) S/p closure of anal fissure (8) Status post debridement (9) S/p kidney stone removal Social / Work History Smoking Status: Never smoker Smokeless Tobacco Use: No Alcohol Use: none Marital Status: Housing Status: lives with significant other Occupation: employed Allergies Coded Allergies: Iodinated Diagnostic Agents (Verified Allergy, Severe, anaphylaxis, ) Levofloxacin (Verified Allergy, Intermediate, RASH, 09/16/16) Patient received Levaquin during a previous admission (2013) but now has a rash with current administration of IV Levaquin Ciprofloxacin (Verified Allergy, Mild, RASH, 09/16/16) Morphine (Verified Allergy, Unknown, hives, 09/16/16) Medications Current Inpatient Medications Medications (Trade) Dose Ordered Sig/Diane Route Start Time Stop Time Status Last Admin Dose Admin Acetaminophen (Tylenol Tab) 650 mg Q4H PRN PO 09/17/16 02:30 10/17/16 02:29 09/17/16 23:31 650 MG Gabapentin (Neurontin Tab) 600 mg BID PO 09/17/16 09:00 10/17/16 08:59 09/18/16 08:25 600 MG Oxycodone HCl (Roxicodone Immediate Rel Tab) 20 mg Q6H PRN PO 09/17/16 03:00 10/01/16 02:59 09/18/16 06:36 20 MG Hydromorphone HCl (Dilaudid Inj) 1 mg Q3H PRN IV 09/17/16 03:00 10/01/16 02:59 09/18/16 08:25 1 MG Oxycodone HCl 20 mg 20 mg Q12 PO 09/17/16 09:00 10/01/16 08:59 09/18/16 08:25 20 MG Piperacillin Sod/ Tazobactam Sod/ Dextrose (Zosyn Iv/D5 100ml) 115 ml @ 28 mls/hr Q8H IV 09/17/16 04:00 09/27/16 03:59 09/18/16 02:29 28 MLS/HR Ondansetron HCl (Zofran Inj) 4 mg Q6H PRN IV 09/17/16 03:45 10/17/16 03:44 09/18/16 02:50 4 MG Piperacillin Sod/ Tazobactam Sod 1 ea 1 ea UD PRN N/A 09/17/16 04:30 10/17/16 04:29 Sodium Chloride (Nss 1000ml) 1,000 ml @ 125 mls/hr Q8H IV 09/17/16 17:00 10/17/16 16:59 09/18/16 08:26 125 MLS/HR Heparin Sodium (Porcine) (Heparin 10 Unit/ ml 5 ml Flush) 5 ml PRN PRN FLUSH 09/18/16 00:45 10/18/16 00:44 Daptomycin (Consult) 1 ea UD PRN N/A 09/18/16 10:15 10/18/16 10:14 Miscellaneous Information (Pharmacy Consult) 1 ea UD PRN N/A 09/18/16 10:15 10/18/16 10:14 Oseltamivir Phosphate (Tamiflu Susp) 30 mg BID PO 09/18/16 21:00 09/21/16 09:01 Diphenhydramine HCl 25 mg 25 mg TID PRN PO 09/18/16 10:30 10/18/16 10:29 Daptomycin/Sodium Chloride (Cubicin IV/Nss 50ml) 61.7 ml @ 120 mls/hr DAILY@0030 IV 09/19/16 00:30 10/01/16 00:29 Review of Systems Denies complaints related to 10 point organ system review. Physical Exam Height & Weight: Height 5 feet, 11.00 inches. Weight 103.200 (Kilograms) 227 (Pounds) Last Vital Signs Documentation Date Time Temp Pulse Resp B/P Pulse Ox O2 Delivery O2 Flow Rate FiO2 09/18/16 08:00 Room Air 09/18/16 08:00 38.0 100 18 144/84 95 Exam: GENERAL: Mr. Li is a 40 y/o white male that appears his stated age. Speech and cognition is intact. Mood and affect is appropriate. He is in no acute distress at rest. Appears moderately uncomfortable with any right shoulder ROM. HEAD: Normocephalic; atraumatic. EYES: Pupils are round, equal, and reactive to light; EOM intact. ENT: No external ear discharge or lesions. No rhinorrhea or epistaxis. No mucosal lesions. NECK: Full ROM; trachea is midline. CHEST: Regular chest respiration and excursion. EXTREMITIES: Minimal ROM of the right shoulder. He does keep the right elbow flexed at 90 degrees for comfort. There are multiple well healed surgical incisions of the right shoulder. Patient is exquisitely tender of the right biceps insertion point. NEURO: CN II-XII grossly intact with no focal deficits noted. Normal gait. SKIN: There is moderate tenderness and hyperpathia of the right anterior shoulder region. 2cm x 7cm rectangular area or erythema which is warm to the touch. No abscess or drainage noted. Laboratory / Imaging Results Laboratory Results (Last CBC): 09/18/16 07:22 Red Blood Count 4.03 L, Mean Corpuscular Volume 70.5 L, Mean Corpuscular Hemoglobin 21.6 L, Mean Corpuscular Hemoglobin Concent 30.6 L, Mean Platelet Volume 9.6, Neutrophils (%) (Auto) 73.3, Lymphocytes (%) (Auto) 11.4, Monocytes (%) (Auto) 8.9, Eosinophils (%) (Auto) 5.9, Basophils (%) (Auto) 0.3, Neutrophils # (Auto) 10.93 H, Lymphocytes # (Auto) 1.70, Monocytes # (Auto) 1.32 H, Eosinophils # (Auto) 0.88 H, Basophils # (Auto) 0.04 Imagin09/16/16 Shoulder X-ray 1. Mild cortical irregularity of the proximal shaft of right humerus which was not evident on prior exams. This finding is nonspecific and this may be post traumatic, post surgical or infectious in etiology. 2. No acute fracture. [place] Drug Monitoring Program Search Results: patient reviewed within database Assessment 1. Right shoulder infection 2. Right shoulder pain 3. History of multiple right shoulder surgeries and debridement Recommendations Recommend continuing medication regimen of OxyContin, Oxycodone, and IV Dilaudid for breakthrough pain. I have spoken with the patient and have agreed that medications should not be further increased as he is already on high narcotics. If the patient requires repeat surgery, his pain will be even more difficult to treat. Patient is stable with current medication regimen. He will continue with further evaluation of the right shoulder pain and infection. [employer] Voice Recognition This chart was completed in part utilizing [employer] Voice Recognition Software. Random word insertions, pronoun errors, and incomplete sentences are an occasional consequence of this system due to software limitations and ambient noise. Any questions or concerns about the content, text or information contained within the body of this dictation should be directly addressed to the provider for clarification.
[2016-09-18 11:56] VITALS: BP 154/86; PULSE 104; TEMP 37; O2SAT 96
[2016-09-18] MEDS ORDERED: CALCIUM GLUCONATE 10% 2,000 MG in SODIUM CHLORIDE 0.9% 50ML 50 ML IV ONE (12:00)
[2016-09-18] MEDS: DiphenhydrAMINE HCL 50 MG/ML VIAL IV PRN ×2 (12:03→20:20)
[2016-09-18 12:42] LABS: URINE APPEARANCE CLEAR (CLEAR); URINE BILIRUBIN NEG (NEG); URINE COLOR YELLOW; URINE NITRITE NEG (NEG); URINE SPECIFIC GRAVITY 1.005 (1.000-1.030); UROBILINOGEN NEG (NEG); ZZUR CULT IF INDIC CLEAN CATCH NO
[2016-09-18 13:02] LABS: MANUAL MICROSCOPIC REQUIRED? NO; REVIEW REQ? YES
[2016-09-18 13:35] LABS: URINE EPITHELIAL CELL AUTO 0-5 /lpf (0-5)
--- NOTE | 2016-09-18 14:24 | DIAGNOSTIC IMAGING REPORT ---
ULTRASOUND KIDNEYS AND BLADDER CLINICAL HISTORY: Acute renal insufficiency. COMPARISON STUDY: Abdominal CT dated 12/20/2015. TECHNIQUE: Real-time, grayscale, and color flow sonography of the kidneys and bladder is performed. Images are reviewed in the transverse and longitudinal planes. FINDINGS: Kidneys: The kidneys are normal in size and echotexture. The right kidney measures 11.4 x 5.7 x 5.4 cm and the left kidney measures 12.9 x 6.0 x 5.7 cm. There is no hydronephrosis. Small bilateral nonobstructing renal calculi are identified. There is no sonographic evidence of contour deforming renal mass lesion. No perinephric fluid is identified. Bladder: The bladder is decompressed and grossly unremarkable. Ureteral jets were not seen. Upper abdomen: The spleen is mildly enlarged measuring 13.6 cm in length. IMPRESSION: 1. The kidneys are normal in size and without hydronephrosis. 2. Small bilateral renal calculi are again noted. 3. The bladder was decompressed and grossly unremarkable. Electronically signed by: Be Fisher M.D. 09/18/2016 2:23 PM Dictated Date/Time: 09/18/2016 2:21 PM
--- NOTE | 2016-09-18 15:10 | Orthopedic Progress Note ---
Orthopedic Progress Note Date of Service Sep 18, 2016. Subjective Additional Notes: Pt just returned from getting a renal ultrasound. States that the redness is worsening around the old incision and spreading over towards the axilla. Feels that this has been the worst swelling in the arm to date. States that pain management was by to discuss the current regimen. He agreed to the current regimen unless he needs surgery, then will have to be changed. He states that the current regimen is manageable but not great. "It feels like I'm stuck in the middle of [place] and bad". No other complaints. Objective RUE with swelling from shoulder to elbow. Swelling is firm but not tense in most areas. Erythema over his old incision. No open areas. No drainage. Erythema moving medially and somewhat inferiorly. Hand ROM has not changed since I last saw him. He states it feels tight when he makes a fist, up the forearm but is not painful. Sensation has note changed. Still somewhat blunted. Little to no ROM of the shoulder due to pain. Date Time Temp Pulse Resp B/P Pulse Ox O2 Delivery O2 Flow Rate FiO2 09/18/16 12:00 Room Air 09/18/16 11:56 37.0 104 20 154/86 96 Room Air 09/18/16 08:00 Room Air 09/18/16 08:00 38.0 100 18 144/84 95 Room Air 09/18/16 04:00 Room Air 09/18/16 03:48 37.4 105 20 132/93 97 Room Air 09/17/16 23:59 Room Air 09/17/16 23:08 37.2 99 19 126/84 97 Room Air 09/17/16 21:29 94 Room Air 09/17/16 20:00 Room Air 09/17/16 19:04 36.8 108 20 159/87 94 Room Air 09/17/16 16:00 Room Air 09/17/16 15:12 36.9 93 18 117/71 96 Room Air Laboratory Results 24 Hours: Test 09/17/16 15:43 09/17/16 22:17 09/18/16 07:22 White Blood Count 18.66 K/uL 14.90 K/uL Red Blood Count 4.05 M/uL 4.03 M/uL Hemoglobin 8.7 g/dL 8.4 g/dL 8.7 g/dL Hematocrit 29.0 % 27.8 % 28.4 % Mean Corpuscular Volume 71.6 fL 70.5 fL Mean Corpuscular Hemoglobin 21.5 pg 21.6 pg Mean Corpuscular Hemoglobin Concent 30.0 g/dl 30.6 g/dl Platelet Count 248 K/uL 206 K/uL Mean Platelet Volume 9.6 fL 9.6 fL Neutrophils (%) (Auto) 82.4 % 73.3 % Lymphocytes (%) (Auto) 7.3 % 11.4 % Monocytes (%) (Auto) 7.1 % 8.9 % Eosinophils (%) (Auto) 2.8 % 5.9 % Basophils (%) (Auto) 0.1 % 0.3 % Neutrophils # (Auto) 15.38 K/uL 10.93 K/uL Lymphocytes # (Auto) 1.37 K/uL 1.70 K/uL Monocytes # (Auto) 1.32 K/uL 1.32 K/uL Eosinophils # (Auto) 0.52 K/uL 0.88 K/uL Basophils # (Auto) 0.02 K/uL 0.04 K/uL Additional Notes: RIGHT SHOULDER ULTRASOUND CLINICAL HISTORY: Sepsis. Recurrent right shoulder infection. Evaluate for abscess. COMPARISON STUDY: Right shoulder ultrasound July 03, 2016. FINDINGS: A small subincisional right shoulder fluid collection is again noted. This is similar to exam of July 03, 2016. This small collection measures 3.1 x 0.5 x 3.2 cm. There appears to be a sinus tract extending towards the skin. IMPRESSION: No significant change in the small subincisional right shoulder fluid collection since ultrasound of July 03, 2016. This is nonspecific although the stability and appearance do not suggest an abscess. This may reflect a seroma. Assessment & Plan Assessment: Chronic Infection Right Shoulder Plan: As per [facility] RUE US results as noted above. MRI ordered today. Pain Management on board. Pt hoping that IV meds can be increased slightly. Infectious Disease managing antibx Inhouse Planning Pain Management: Oxycontin, Dilaudid, Oxy IR
[2016-09-18 15:17] VITALS: BP 152/95; PULSE 86; TEMP 37.6; O2SAT 98
--- NOTE | 2016-09-18 16:43 | NEPHROLOGY CONSULTATION ---
DATE OF CONSULTATION: 09/18/2016 ATTENDING OF RECORD: Dr. Nelson. REASON FOR CONSULTATION: JACQUELINE. HISTORY OF PRESENT ILLNESS: This is a 40-year-old male who had an injury to his right shoulder in 2009 and did not respond well to rehab and underwent surgery in 2010 and then developed staph infection and has been dealing with recurrent infections of his right shoulder. 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 The patient is well known to Dr. Bailey, who has been managing his recurrent infections of his right shoulder. The patient for the past week has had a decreased appetite, low grade fevers, nausea, and vomiting. The patient was recently in the hospital in June of this year with blood cultures positive for VRE and proteus and underwent debridement of the right shoulder. The patient's right shoulder/arm has become more swollen and there is redness over the previous incision site. The patient's family has also had the flu and the patient comes in and is positive for influenza A. Creatinine on admission was 1.3. The following morning, it was 2 and this morning, is up to 4. The patient's urine output has decreased while an outpatient. It was getting darker. However, the patient has noticed that he is urinating better and that the urine is more clear. The patient did get a vancomycin loading dose of 2400 mg on the morning of September 17 and now is currently on daptomycin and is also getting Tamiflu. The patient denies any recent nonsteroidals. He does not appear to have had any recent contrast. He did have a recent renal ultrasound done, which shows the kidneys being normal in size and echotexture with the right kidney of 11.4 cm and the left kidney of 12.9 cm with no hydro. He does have small bilateral nonobstructing renal calculi. The patient states that he recently passed a stone about a week ago and has had recurrent stones since his 20s. He used to follow with Dr. Kevin in [place], but does not actively follow with any urologist at this time. The patient does chew tobacco, but does not smoke cigarettes. He is not diabetic and does not have high blood pressure. The patient's calcium levels have been low and he has been receiving supplemental IV calcium gluconate and is currently tolerating the IV fluids well. Recent chest x-ray this morning shows improving pulmonary vascular congestion. No evidence of focal pulmonary consolidation. Extremity ultrasound shows a small sub incisional right shoulder fluid collection since ultrasound on July 03, which sounds changed and does not suggest an abscess. Blood cultures 1/2 are positive for gram negative bacilli and repeat cultures are pending. REVIEW OF SYSTEMS: Positive low grade fevers. Positive nausea and vomiting. Positive decreased appetite. Positive decreased urination and darker urine. No chest pain and no shortness of breath. Positive for worsening right shoulder pain and right shoulder swelling with erythema. No dysphagia. No diarrhea or constipation. All other review of systems otherwise negative. 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 Bailey. PAST SURGICAL HISTORY: Shoulder surgery, multiple kidney stone removals, closure of an anal fissure, debridement of the shoulder, and orbital fracture. FAMILY HISTORY: Significant for high blood pressure and diabetes. SOCIAL HISTORY: Positive, chews tobacco. No alcohol and no drugs. He is , lives at home. CURRENT MEDICATIONS: Daptomycin, Neurontin 600 mg p.o. b.i.d., Tamiflu 30 mg p.o. b.i.d., oxycodone 20 mg p.o. q. 12 hours, Zosyn 3.375 IV q. 8 hours, and normal saline at 125 mL an hour. PHYSICAL EXAMINATION: VITAL SIGNS: Temperature 37 with a T-max of 38 this morning, pulse in the low 100s, respiratory rate is 20, blood pressure 154/86, and satting 96% on room air. GENERAL: Awake, alert, and oriented x3. EYES: No scleral icterus. ENT: Moist mucous membranes. NECK: Supple. PULMONARY: Clear to auscultation. CARDIAC: Tachy. ABDOMEN: Bowel sounds positive. Soft and nontender. EXTREMITIES: No significant clubbing, cyanosis or edema in the lower extremities. Right shoulder appears swollen with erythema along the previous incision site. NEURO-nonfocal LABORATORIES: Sodium level is 141, potassium is 4, chloride is 109, bicarbonate is 24, BUN is 24, creatinine is 4, calcium 7.6, ionized calcium is 1.05 this morning, phosphorus is 4.5, and mag is 1.8. White count 15,000, H\T\H 8.7 and 28.4, and platelet count is 206. Urine on the was bland. Urine today shows 5-10 WBCs, 0-4 RBCs, 1+ protein, and 1+ blood with pH of 6. Flu is positive. Blood cultures 1/2 positive, repeat are pending. IMPRESSION AND PLAN: 1. Acute kidney injury/acute tubular necrosis, nonoliguric with urine output of 1400 yesterday and 2450 today, tolerating the IV fluids well. He did receive a loading dose of vancomycin. So, there is a possibility of vancomycin nephrotoxicity in the setting of volume depleted patient. However, the patient has received vancomycin numerous times in the past with no significant acute kidney injury episodes. The patient does have fevers, leukocytosis, bacteremia, worsening right shoulder swelling and was volume depleted with poor appetite this week. So, the patient may been volume depleted significant enough to cause an acute tubular necrosis episode, creatinine rapidly worsening. Platelet count is stable and the urine only shows 0-4 RBCs with 1+ occult blood. I do not feel this is a rapidly progressive glomerulonephritis type episode; however, I will check an ANCA complement and MAURA to be thorough. I would suspect MAURA to be elevated since multiple other etiologies for an elevated MAURA in this patient with active infection. The patient may need dialysis during this admission. He did have an ultrasound, which does not reveal any hydro. It does reveal small nonobstructing kidney stones and he does have a history of kidney stones in the past. For now, continue conservative measures of aggressive IV fluids, appropriate antibiotics and respectfully defer to infectious disease and orthopedics as well as primary hospitalist for further management of his infection. 2. Hypocalcemia. Calcium levels are low, likely secondary to the infection and repleting aggressively. Phosphorus levels are relatively normal. We will continue to follow calcium levels and replete p.r.n. 3. Overall, unfortunate patient with significant infection with worsening kidney function, who may require dialysis as we continue to treat the underlying right shoulder infection, who has continued fevers, leukocytosis, erythema and swelling. Appreciate consultation. FRANCO
--- NOTE | 2016-09-18 17:36 | Infectious Disease Progress Nt ---
Progress Note Date of Service Sep 18, 2016. Subjective Pt evaluation today including: conversation w/ patient, physical exam, chart review, lab review, review of studies, conversation w/ engagement quality consultant, review of inpatient medication list Patient with development of acute kidney injury with rising creatinine. Renal consult reviewed. Patient complaining of severe shoulder pain. Blood cultures with gram-negative bacilli and streptococcal species. All Other Systems: Reviewed and Negative Medications Current Inpatient Medications Medications (Trade) Dose Ordered Sig/Diane Route Start Time Stop Time Status Last Admin Dose Admin Acetaminophen (Tylenol Tab) 650 mg Q4H PRN PO 09/17/16 02:30 10/17/16 02:29 09/17/16 23:31 650 MG Gabapentin (Neurontin Tab) 600 mg BID PO 09/17/16 09:00 10/17/16 08:59 09/18/16 08:25 600 MG Oxycodone HCl (Roxicodone Immediate Rel Tab) 20 mg Q6H PRN PO 09/17/16 03:00 10/01/16 02:59 09/18/16 14:57 20 MG Hydromorphone HCl (Dilaudid Inj) 1 mg Q3H PRN IV 09/17/16 03:00 10/01/16 02:59 09/18/16 16:47 1 MG Oxycodone HCl 20 mg 20 mg Q12 PO 09/17/16 09:00 10/01/16 08:59 09/18/16 08:25 20 MG Piperacillin Sod/ Tazobactam Sod/ Dextrose (Zosyn Iv/D5 100ml) 115 ml @ 28 mls/hr Q8H IV 09/17/16 04:00 09/27/16 03:59 09/18/16 12:03 28 MLS/HR Ondansetron HCl (Zofran Inj) 4 mg Q6H PRN IV 09/17/16 03:45 10/17/16 03:44 09/18/16 02:50 4 MG Piperacillin Sod/ Tazobactam Sod 1 ea 1 ea UD PRN N/A 09/17/16 04:30 10/17/16 04:29 Sodium Chloride (Nss 1000ml) 1,000 ml @ 125 mls/hr Q8H IV 09/17/16 17:00 10/17/16 16:59 09/18/16 16:47 125 MLS/HR Heparin Sodium (Porcine) (Heparin 10 Unit/ ml 5 ml Flush) 5 ml PRN PRN FLUSH 09/18/16 00:45 10/18/16 00:44 Daptomycin (Consult) 1 ea UD PRN N/A 09/18/16 10:15 10/18/16 10:14 Miscellaneous Information (Pharmacy Consult) 1 ea UD PRN N/A 09/18/16 10:15 10/18/16 10:14 Oseltamivir Phosphate 30 mg 30 mg BID PO 09/18/16 21:00 09/21/16 09:01 Daptomycin/Sodium Chloride (Cubicin IV/Nss 50ml) 61.7 ml @ 120 mls/hr DAILY@0030 IV 09/19/16 00:30 10/01/16 00:29 Diphenhydramine HCl (Benadryl Inj) 25 mg TID PRN IV 09/18/16 12:00 10/18/16 11:59 09/18/16 12:03 25 MG Objective Vital Signs Date Time Temp Pulse Resp B/P Pulse Ox O2 Delivery O2 Flow Rate FiO2 09/18/16 16:00 Room Air 09/18/16 15:17 37.6 86 18 152/95 98 Room Air 09/18/16 12:00 Room Air 09/18/16 11:56 37.0 104 20 154/86 96 Room Air 09/18/16 08:00 Room Air 09/18/16 08:00 38.0 100 18 144/84 95 Room Air 09/18/16 04:00 Room Air 09/18/16 03:48 37.4 105 20 132/93 97 Room Air 09/17/16 23:59 Room Air 09/17/16 23:08 37.2 99 19 126/84 97 Room Air 09/17/16 21:29 94 Room Air 09/17/16 20:00 Room Air 09/17/16 19:04 36.8 108 20 159/87 94 Room Air Physical Exam General Appearance: WD/WN, + mild distress Eyes: normal inspection, sclerae normal ENT: normal ENT inspection, pharynx normal Neck: supple, no adenopathy, thyroid normal, trachea midline Respiratory/Chest: chest non-tender, lungs clear, normal breath sounds, no respiratory distress Cardiovascular: regular rate, rhythm, no gallop, no murmur Abdomen: normal bowel sounds, non tender, soft, no organomegaly Extremities: no calf tenderness, normal capillary refill, + pertinent finding ( Tenderness right shoulder) Neurologic/Psychiatric: alert, oriented x 3 Skin: normal color, no rash, + pertinent finding ( some erythema anterior right shoulder) Lymphatic: no adenopathy Laboratory Results Last 24 Hours Test 09/17/16 22:17 09/18/16 00:00 09/18/16 07:22 White Blood Count 13.61 K/uL 14.90 K/uL Red Blood Count 3.87 M/uL 4.03 M/uL Hemoglobin 8.4 g/dL 8.7 g/dL Hematocrit 27.8 % 28.4 % Mean Corpuscular Volume 71.8 fL 70.5 fL Mean Corpuscular Hemoglobin 21.7 pg 21.6 pg Mean Corpuscular Hemoglobin Concent 30.2 g/dl 30.6 g/dl RDW Standard Deviation 46.0 fL 45.6 fL RDW Coefficient of Variation 17.5 % 17.4 % Platelet Count 191 K/uL 206 K/uL Mean Platelet Volume 8.7 fL 9.6 fL Sodium Level 141 mmol/L 141 mmol/L Potassium Level 3.9 mmol/L 4.0 mmol/L Chloride Level 107 mmol/L 109 mmol/L Carbon Dioxide Level 24 mmol/L 24 mmol/L Anion Gap 10.0 mmol/L 8.0 mmol/L Blood Urea Nitrogen 23 mg/dl 24 mg/dl Creatinine 3.30 mg/dl 4.00 mg/dl Est Creatinine Clear Calc Drug Dose 36.8 ml/min 30.6 ml/min Estimated GFR () 26.0 20.6 Estimated GFR (Non- 22.4 17.8 BUN/Creatinine Ratio 7.0 6.1 Random Glucose 116 mg/dl 86 mg/dl Calcium Level 7.5 mg/dl 7.6 mg/dl Ionized Calcium 1.08 mmol/l 1.05 mmol/l Urine Color YELLOW Urine Appearance CLEAR Urine pH 6.0 Urine Specific [place] 1.005 Urine Protein 1+ Urine Glucose (UA) NEG Urine Ketones NEG Urine Occult Blood 1+ Urine Nitrite NEG Urine Bilirubin NEG Urine Urobilinogen NEG Urine Leukocyte Esterase NEG Urine WBC (Auto) 5-10 /hpf Urine RBC (Auto) 0-4 /hpf Urine Hyaline Casts (Auto) 0 /lpf Urine Epithelial Cells (Auto) 0-5 /lpf Urine Bacteria (Auto) NEG Urine Renal Epithelial Cells /lpf Urine Pathogenic Casts /lpf Urine Sperm (Auto) PRESENT Neutrophils (%) (Auto) 73.3 % Lymphocytes (%) (Auto) 11.4 % Monocytes (%) (Auto) 8.9 % Eosinophils (%) (Auto) 5.9 % Basophils (%) (Auto) 0.3 % Neutrophils # (Auto) 10.93 K/uL Lymphocytes # (Auto) 1.70 K/uL Monocytes # (Auto) 1.32 K/uL Eosinophils # (Auto) 0.88 K/uL Basophils # (Auto) 0.04 K/uL Immature Granulocyte % (Auto) 0.2 % Immature Granulocyte # (Auto) 0.03 K/uL Ovalocytes 1+ Phosphorus Level 4.5 mg/dl Magnesium Level 1.8 mg/dl Assessment and Plan 40-year-old male with 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 Not clear whether shoulder alone or also with subclavian line as potential site of infection. For now, patient should be continued on broad-spectrum antibiotics pending final culture results and sensitivities. daptomycin held because of rising creatinine. We will discuss with all involved regarding further management. Will follow.
--- NOTE | 2016-09-18 18:43 | Progress Note ---
Internal Med Progress Note Date of Service: Sep 18, 2016. Provider Documentation: SUBJECTIVE: complains of severe pain in his right shoulder region having temp spikes complains of itching and requests for Benadryl no sob no nausea OBJECTIVE: Vital Signs-as noted below Exam: General-alert and oriented x 3 Not in distress ENT-normal hearing Neck-no neck masses Lungs-cta b/l no wheezing mild bibasilar crackles Heart-s1 and s2 heard regular rate and rhythm no murmurs' Abdomen-soft bowel sounds present non tender no distension Extremities-right shoulder and arm region erythematous and painful movements Neuro-alert and awake moves extremities Lab data as noted below. ASSESSMENT & PLAN: 40 yoM with h/o sepsis 2/2 bacteremia and chronic shoulder infection on halfway abx presents with fever. 1. Sepsis 2/2 bacteremia-Streptococcus and GNBs growing in blood cultures. Influenza a posiitive on iv daptomycin and zosyn. Ortho and ID on board to continue current abx Ortho awaiting MRI to make decesion about I and D. 2. Chronic R shoulder pain-worse in setting of recent infection. Pt reports recently being off narcotics but now is requiring SR/IR oxy. cesar management consulted and appreciate inputs. 3. Pruritus-generalized, patient states this is common for him when he takes IV abx. On IV Benadryl prn. 4. JACQUELINE-likely 2/2 sepsis--Worsening Cr Abx as per pharmacy Consulted nephrology and appreciate inputs will f/u labs. Continue iv fluids and abx. DVT PROPHYLAXIS scds DISPOSITION to be determined Vital Signs: Date Time Temp Pulse Resp B/P Pulse Ox O2 Delivery O2 Flow Rate FiO2 09/18/16 16:00 Room Air 09/18/16 15:17 37.6 86 18 152/95 98 Room Air 09/18/16 12:00 Room Air 09/18/16 11:56 37.0 104 20 154/86 96 Room Air 09/18/16 08:00 Room Air 09/18/16 08:00 38.0 100 18 144/84 95 Room Air 09/18/16 04:00 Room Air 09/18/16 03:48 37.4 105 20 132/93 97 Room Air 09/17/16 23:59 Room Air 09/17/16 23:08 37.2 99 19 126/84 97 Room Air 09/17/16 21:29 94 Room Air 09/17/16 20:00 Room Air 09/17/16 19:04 36.8 108 20 159/87 94 Room Air Lab Results: Results Past 24 Hours Test 09/17/16 22:17 09/18/16 00:00 09/18/16 07:22 Range/Units White Blood Count 13.61 14.90 4.8-10.8 K/uL Red Blood Count 3.87 4.03 4.7-6.1 M/uL Hemoglobin 8.4 8.7 14.0-18.0 g/dL Hematocrit 27.8 28.4 42-52 % Mean Corpuscular Volume 71.8 70.5 80-100 fL Mean Corpuscular Hemoglobin 21.7 21.6 25-34 pg Mean Corpuscular Hemoglobin Concent 30.2 30.6 32-36 g/dl RDW Standard Deviation 46.0 45.6 36.4-46.3 fL RDW Coefficient of Variation 17.5 17.4 11.5-14.5 % Platelet Count 191 206 130-400 K/uL Mean Platelet Volume 8.7 9.6 7.4-10.4 fL Sodium Level 141 141 136-145 mmol/L Potassium Level 3.9 4.0 3.5-5.1 mmol/L Chloride Level 107 109 98-107 mmol/L Carbon Dioxide Level 24 24 21-32 mmol/L Anion Gap 10.0 8.0 3-11 mmol/L Blood Urea Nitrogen 23 24 7-18 mg/dl Creatinine 3.30 4.00 0.60-1.40 mg/dl Est Creatinine Clear Calc Drug Dose 36.8 30.6 ml/min Estimated GFR () 26.0 20.6 Estimated GFR (Non- 22.4 17.8 BUN/Creatinine Ratio 7.0 6.1 10-20 Random Glucose 116 86 70-99 mg/dl Calcium Level 7.5 7.6 8.5-10.1 mg/dl Ionized Calcium 1.08 1.05 1.12-1.32 mmol/l Urine Color YELLOW Urine Appearance CLEAR CLEAR Urine pH 6.0 4.5-7.5 Urine Specific [place] 1.005 1.000-1.030 Urine Protein 1+ NEG Urine Glucose (UA) NEG NEG Urine Ketones NEG NEG Urine Occult Blood 1+ NEG Urine Nitrite NEG NEG Urine Bilirubin NEG NEG Urine Urobilinogen NEG NEG Urine Leukocyte Esterase NEG NEG Urine WBC (Auto) 5-10 0-5 /hpf Urine RBC (Auto) 0-4 0-4 /hpf Urine Hyaline Casts (Auto) 0 0-5 /lpf Urine Epithelial Cells (Auto) 0-5 0-5 /lpf Urine Bacteria (Auto) NEG NEG Urine Renal Epithelial Cells 0-5 /lpf Urine Pathogenic Casts 0 /lpf Urine Sperm (Auto) PRESENT NOT PRESENT Neutrophils (%) (Auto) 73.3 % Lymphocytes (%) (Auto) 11.4 % Monocytes (%) (Auto) 8.9 % Eosinophils (%) (Auto) 5.9 % Basophils (%) (Auto) 0.3 % Neutrophils # (Auto) 10.93 1.4-6.5 K/uL Lymphocytes # (Auto) 1.70 1.2-3.4 K/uL Monocytes # (Auto) 1.32 0.11-0.59 K/uL Eosinophils # (Auto) 0.88 0-0.5 K/uL Basophils # (Auto) 0.04 0-0.2 K/uL Immature Granulocyte % (Auto) 0.2 % Immature Granulocyte # (Auto) 0.03 0.00-0.02 K/uL Ovalocytes 1+ Phosphorus Level 4.5 2.5-4.9 mg/dl Magnesium Level 1.8 1.8-2.4 mg/dl Microbiology Results 09/18/16 Blood Culture, Received Pending 09/18/16 Blood Culture, Received Pending
[2016-09-18 19:15] VITALS: BP 155/90; PULSE 85; TEMP 37; O2SAT 94
[2016-09-18] MEDS: OSELTAMIVIR PHOSPHATE SUSP 30 MG/5 ML UDP PO SCH (20:25)
[2016-09-18 23:20] VITALS: BP 146/94; PULSE 88; TEMP 37.5; O2SAT 98
[2016-09-18] MEDS: DAPTOMYCIN IV SCH (23:59)
[2016-09-18] MEDS: SODIUM CHLORIDE 0.9% IV SCH (23:59)
[2016-09-19 03:00] VITALS: BP 137/90; PULSE 103; TEMP 37.3; O2SAT 94
[2016-09-19] MEDS: ONDANSETRON INJ 2 MG/ML 2 ML VIAL IV PRN ×2 (03:04→10:40)
[2016-09-19] MEDS: HYDROmorphone INJ 1 MG/ML SYR IV PRN ×6 (03:04→21:46)
[2016-09-19] MEDS: DiphenhydrAMINE HCL 50 MG/ML VIAL IV PRN ×2 (03:04→18:33)
[2016-09-19] MEDS: PIPERACILL/TAZOBAC IV 3.375 GM in DEXTROSE 5% 100ML 100 ML IV SCH ×3 (03:12→20:48)
--- NOTE | 2016-09-19 07:13 | Nephrology Progress Note ---
Nephrology Progress Note Date of Service: Sep 19, 2016. Subjective 40 yo male with right upper extremity infection with redness and swelling and has positive bacteremia with intermittent fevers. now also with дмитрий with creatinine up to 4. pt urinating well but starting to feel leg heaviness and swelling. appetite is poor. has some nausea, no vomiting. for mri of shoulder this morning. Objective Date Time Temp Pulse Resp B/P Pulse Ox O2 Delivery O2 Flow Rate FiO2 09/19/16 04:00 Room Air 09/19/16 03:00 37.3 103 20 137/90 94 Room Air 09/18/16 23:59 Room Air 09/18/16 23:20 37.5 88 18 146/94 98 Room Air 09/18/16 20:00 Room Air 09/18/16 19:15 37.0 85 20 155/90 94 Room Air 09/18/16 16:00 Room Air 09/18/16 15:17 37.6 86 18 152/95 98 Room Air 09/18/16 12:00 Room Air 09/18/16 11:56 37.0 104 20 154/86 96 Room Air 09/18/16 08:00 Room Air 09/18/16 08:00 38.0 100 18 144/84 95 Room Air Physical Exam: General-aaox3 Eyes-no scleral icterus ENT-mmm Neck-supple Lungs-cta Heart-rrr Abdomen-bs+ s/nt/nd Extremities-right upper extremity erythema and swelling, difficult to move, + mild swelling of lower extremities Neuro-nonfocal Current Inpatient Medications Medications (Trade) Dose Ordered Sig/Diane Route Start Time Stop Time Status Last Admin Dose Admin Acetaminophen (Tylenol Tab) 650 mg Q4H PRN PO 09/17/16 02:30 10/17/16 02:29 09/17/16 23:31 650 MG Gabapentin (Neurontin Tab) 600 mg BID PO 09/17/16 09:00 10/17/16 08:59 09/18/16 20:19 600 MG Oxycodone HCl (Roxicodone Immediate Rel Tab) 20 mg Q6H PRN PO 09/17/16 03:00 10/01/16 02:59 09/18/16 22:32 20 MG Hydromorphone HCl (Dilaudid Inj) 1 mg Q3H PRN IV 09/17/16 03:00 10/01/16 02:59 09/19/16 03:04 1 MG Oxycodone HCl 20 mg 20 mg Q12 PO 09/17/16 09:00 10/01/16 08:59 09/18/16 20:19 20 MG Piperacillin Sod/ Tazobactam Sod/ Dextrose (Zosyn Iv/D5 100ml) 115 ml @ 28 mls/hr Q8H IV 09/17/16 04:00 09/27/16 03:59 09/19/16 03:12 28 MLS/HR Ondansetron HCl (Zofran Inj) 4 mg Q6H PRN IV 09/17/16 03:45 10/17/16 03:44 09/19/16 03:04 4 MG Piperacillin Sod/ Tazobactam Sod 1 ea 1 ea UD PRN N/A 09/17/16 04:30 10/17/16 04:29 Sodium Chloride (Nss 1000ml) 1,000 ml @ 125 mls/hr Q8H IV 09/17/16 17:00 10/17/16 16:59 09/18/16 23:59 125 MLS/HR Heparin Sodium (Porcine) (Heparin 10 Unit/ ml 5 ml Flush) 5 ml PRN PRN FLUSH 09/18/16 00:45 10/18/16 00:44 Daptomycin (Consult) 1 ea UD PRN N/A 09/18/16 10:15 10/18/16 10:14 Miscellaneous Information (Pharmacy Consult) 1 ea UD PRN N/A 09/18/16 10:15 10/18/16 10:14 Oseltamivir Phosphate 30 mg 30 mg BID PO 09/18/16 21:00 09/21/16 09:01 09/18/16 20:25 30 MG Daptomycin/Sodium Chloride (Cubicin IV/Nss 50ml) 61.7 ml @ 120 mls/hr DAILY@0030 IV 09/19/16 00:30 10/01/16 00:29 09/18/16 23:59 120 MLS/HR Diphenhydramine HCl (Benadryl Inj) 25 mg TID PRN IV 09/18/16 12:00 10/18/16 11:59 09/19/16 03:04 25 MG Last 24 Hours Test 09/18/16 07:22 09/19/16 04:44 White Blood Count 14.90 K/uL Red Blood Count 4.03 M/uL Hemoglobin 8.7 g/dL Hematocrit 28.4 % Mean Corpuscular Volume 70.5 fL Mean Corpuscular Hemoglobin 21.6 pg Mean Corpuscular Hemoglobin Concent 30.6 g/dl Platelet Count 206 K/uL Mean Platelet Volume 9.6 fL Neutrophils (%) (Auto) 73.3 % Lymphocytes (%) (Auto) 11.4 % Monocytes (%) (Auto) 8.9 % Eosinophils (%) (Auto) 5.9 % Basophils (%) (Auto) 0.3 % Neutrophils # (Auto) 10.93 K/uL Lymphocytes # (Auto) 1.70 K/uL Monocytes # (Auto) 1.32 K/uL Eosinophils # (Auto) 0.88 K/uL Basophils # (Auto) 0.04 K/uL RDW Standard Deviation 45.6 fL RDW Coefficient of Variation 17.4 % Immature Granulocyte % (Auto) 0.2 % Immature Granulocyte # (Auto) 0.03 K/uL Ovalocytes 1+ Sodium Level 141 mmol/L Potassium Level 4.0 mmol/L Chloride Level 109 mmol/L Carbon Dioxide Level 24 mmol/L Anion Gap 8.0 mmol/L Blood Urea Nitrogen 24 mg/dl Creatinine 4.00 mg/dl Est Creatinine Clear Calc Drug Dose 30.6 ml/min Estimated GFR () 20.6 Estimated GFR (Non- 17.8 BUN/Creatinine Ratio 6.1 Random Glucose 86 mg/dl Calcium Level 7.6 mg/dl Ionized Calcium 1.05 mmol/l Phosphorus Level 4.5 mg/dl Magnesium Level 1.8 mg/dl Date/Time Source Procedure Growth Status 09/18/16 11:15 Blood Blood Culture Pending Received 09/18/16 11:00 Blood Blood Culture Pending Received 09/19/16 00:01 Stool C.difficile Toxin B Gene (PCR) - Final No C. difficile toxin B gene detected Complete Assessment & Plan [id number] in setting of volume depletion and sepsis causing atn. did have bolus of vanco however has been on vanco in the past without дмитрий. tolerating fluids well however starting to have edema in legs. lungs cta and not requiring oxygen. labs pending for today but expect creatinine to worsen before it starts to improve. pt does have nausea and decreased appetite, unclear if from renal failure or other contributing causes. hold on dialysis for now but may need dialysis during this admission. will check a cpk with the arm swelling. continue current fluids for now. hypocalcemia-ionized calcium has been low and have been repleting prn. will follow levels again this morning and redose accordingly. right shoulder infection-mri this morning and may need surgery for debridement. ortho and ID following. continues to have fevers. 37.6 yesterday afternoon.
[2016-09-19] MEDS: GABAPENTIN 600 MG TAB PO SCH ×2 (07:39→21:09)
[2016-09-19] MEDS: OSELTAMIVIR PHOSPHATE SUSP 30 MG/5 ML UDP PO SCH ×2 (07:45→21:18)
[2016-09-19 07:53] LABS: BASO % 0.4 %; BASO ABS # 0.04 K/uL (0-0.2); EOS % 11.2 %; HEMATOCRIT 27.7 % (42-52); IG% 0.1 %; LYMPH % 21.3 %; LYMPH ABS # 2.09 K/uL (1.2-3.4); MEAN CELL VOLUME 69.9 fL (80-100); MEAN PLATELET VOLUME 9.7 fL (7.4-10.4); MONO % 9.4 %; NEUT % 57.6 %; PLATELET COUNT 254 K/uL (130-400); RED BLOOD COUNT 3.96 M/uL (4.7-6.1); WHITE BLOOD COUNT 9.82 K/uL (4.8-10.8)
[2016-09-19 08:03] VITALS: BP 131/89; PULSE 93; TEMP 37.2; O2SAT 100
[2016-09-19 08:21] LABS: BUN/CREATININE RATIO 4.3 (10-20); CALCIUM 7.7 mg/dl (8.5-10.1); MAGNESIUM 1.9 mg/dl (1.8-2.4); POTASSIUM 3.7 mmol/L (3.5-5.1)
[2016-09-19 08:24] LABS: PHOSPHORUS 4.5 mg/dl (2.5-4.9)
[2016-09-19 09:08] LABS: COMPLETE YES; ECHINOCYTES 1+; MICROCYTOSIS PRESENT; OVALOCYTES 1+
--- NOTE | 2016-09-19 09:14 | DIAGNOSTIC IMAGING REPORT ---
MRI OF THE RIGHT SHOULDER WITHOUT CONTRAST CLINICAL HISTORY: Recurrent right shoulder infection. Multiple prior surgeries. Evaluate for abscess or osteomyelitis. COMPARISON STUDY: MRI of the right shoulder July 03, 2016, right shoulder radiographs September 16, 2016 and right shoulder ultrasound September 17, 2016. TECHNIQUE: Utilizing 1.5 Katelin magnet, multiplanar, multiecho imaging of the right shoulder was performed without intravenous or intra-articular contrast. FINDINGS: The exam is mildly compromised by motion artifact. Alignment of the right shoulder is anatomic. There is no evidence for osteomyelitis within the visualized skeletal structures. There is signal abnormality and abnormal morphology of the labrum which is unchanged since MRI of July 03, 2016. 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 Postsurgical findings are noted with multiple foci of susceptibility artifact. A scar along the lateral aspect of the right shoulder is again noted. A 2.5 x 0.6 x 3 cm fluid collection along the posterior aspect of the scar is similar to exam of July 03, 2016. This is within the deep subcutaneous tissues along the fascia overlying the deltoid muscle. There is mild edema within the deltoid muscle. There has been interval development of an additional adjacent fluid collection located slightly more anteriorly that measures 2.3 x 1.6 x 0.7 cm. No additional fluid collections are present. There is no full-thickness rotator cuff tear. There is tendinopathy of supraspinatus. This is unchanged. IMPRESSION: 1. Two small adjacent subcutaneous fluid collections deep to the scar within the lateral right shoulder, superficial to the deltoid muscle. The posterior fluid collection is similar to MRI of July 03, 2016 while the smaller anterior fluid collection is new since that exam. These are nonspecific and may reflect seromas. However, an infected fluid collection cannot be excluded by MRI. Mild nonspecific edema within the deltoid muscle. This could be due to postoperative change or myositis. 2. No evidence of osteomyelitis within the right shoulder. 3. No right shoulder joint effusion. 4. Super status tendinopathy with no full-thickness tear. 5. Complex degenerative labral tear. 6. Study mildly compromised by motion artifact. Electronically signed by: Onel Alcaraz M.D. 09/19/2016 9:13 AM Dictated Date/Time: 09/19/2016 8:58 AM
[2016-09-19] MEDS: OXYCODONE HCL 20 MG TABCR (OXYCONTIN) PO SCH ×2 (10:09→21:18)
[2016-09-19] MEDS ORDERED: HYDROmorphone INJ 1 MG/ML SYR IV ONE (10:32)
[2016-09-19 11:46] VITALS: BP 138/83; PULSE 104; TEMP 37.5; O2SAT 93
[2016-09-19] MEDS: SODIUM CHLORIDE 0.9% 1000ML 1,000 ML IV SCH ×2 (11:57→20:43)
[2016-09-19] MEDS: OXYCODONE HCL IR 5 MG TAB (IMMEDIATE RELEASE) PO PRN (15:56)
[2016-09-19 16:11] VITALS: BP 160/98; PULSE 94; TEMP 37; O2SAT 100
[2016-09-19 16:34] VITALS: BP 160/98; PULSE 94; TEMP 37; O2SAT 100
--- NOTE | 2016-09-19 17:16 | Progress Note ---
Internal Med Progress Note Date of Service: Sep 19, 2016. Provider Documentation: SUBJECTIVE: sitting on the bed just had MRI done complains of severe pain in his right shoulder and arm and request for one dose of iv pain meds no temp spike today no sob or cough awaiting decision by ortho for I and D. OBJECTIVE: Vital Signs-as noted below Exam: General-alert and oriented x 3 Not in distress ENT-normal hearing Neck-no neck masses Lungs-cta b/l no wheezing no crackles Heart-s1 and s2 heard regular rate and rhythm no murmurs' Abdomen-soft bowel sounds present non tender no distension Extremities-right shoulder and arm region erythematous and painful movements. Lower extremity edema present. Neuro-alert and awake moves extremities Lab data as noted below. ASSESSMENT & PLAN: 40 yoM with h/o sepsis 2/2 bacteremia and chronic shoulder infection on senior living abx presents with fever. 1. Sepsis 2/2 bacteremia-enterococcus and GNBs growing in blood cultures. Influenza a positive and on Tamiflu on iv daptomycin and zosyn. Ortho and ID on board to continue current abx MRI seromas vs infection Ortho to make decision about I and D. hemodynamics stable 2. Chronic R shoulder pain-worse in setting of recent infection. Pt reports recently being off narcotics but now is requiring SR/IR oxy. cesar management consulted and appreciate inputs. 3. Pruritus-generalized, patient states this is common for him when he takes IV abx. On IV Benadryl prn.No complaints today. 4. JACQUELINE-likely 2/2 sepsis--Worsening Cr Abx as per pharmacy Consulted nephrology and appreciate inputs will f/u labs. Continue iv fluids and abx. CR 4.0 today f/u labs DVT PROPHYLAXIS scds DISPOSITION to be determined Vital Signs: Date Time Temp Pulse Resp B/P Pulse Ox O2 Delivery O2 Flow Rate FiO2 09/19/16 16:34 37.0 94 16 100 09/19/16 16:11 37.0 94 16 160/98 100 Room Air 09/19/16 16:00 Room Air 09/19/16 12:00 Room Air 09/19/16 11:46 37.5 104 20 138/83 93 Room Air 09/19/16 08:03 37.2 93 18 131/89 100 Room Air 09/19/16 08:00 Room Air 09/19/16 04:00 Room Air 09/19/16 03:00 37.3 103 20 137/90 94 Room Air 09/18/16 23:59 Room Air 09/18/16 23:20 37.5 88 18 146/94 98 Room Air 09/18/16 20:00 Room Air 09/18/16 19:15 37.0 85 20 155/90 94 Room Air Lab Results: Results Past 24 Hours Test 09/19/16 07:40 Range/Units White Blood Count 9.82 4.8-10.8 K/uL Red Blood Count 3.96 4.7-6.1 M/uL Hemoglobin 8.3 14.0-18.0 g/dL Hematocrit 27.7 42-52 % Mean Corpuscular Volume 69.9 80-100 fL Mean Corpuscular Hemoglobin 21.0 25-34 pg Mean Corpuscular Hemoglobin Concent 30.0 32-36 g/dl Platelet Count 254 130-400 K/uL Mean Platelet Volume 9.7 7.4-10.4 fL Neutrophils (%) (Auto) 57.6 % Lymphocytes (%) (Auto) 21.3 % Monocytes (%) (Auto) 9.4 % Eosinophils (%) (Auto) 11.2 % Basophils (%) (Auto) 0.4 % Neutrophils # (Auto) 5.66 1.4-6.5 K/uL Lymphocytes # (Auto) 2.09 1.2-3.4 K/uL Monocytes # (Auto) 0.92 0.11-0.59 K/uL Eosinophils # (Auto) 1.10 0-0.5 K/uL Basophils # (Auto) 0.04 0-0.2 K/uL RDW Standard Deviation 44.8 36.4-46.3 fL RDW Coefficient of Variation 17.3 11.5-14.5 % Immature Granulocyte % (Auto) 0.1 % Immature Granulocyte # (Auto) 0.01 0.00-0.02 K/uL Microcytosis PRESENT Ovalocytes 1+ Echinocytes 1+ Sodium Level 144 136-145 mmol/L Potassium Level 3.7 3.5-5.1 mmol/L Chloride Level 113 98-107 mmol/L Carbon Dioxide Level 22 21-32 mmol/L Anion Gap 9.0 3-11 mmol/L Blood Urea Nitrogen 17 7-18 mg/dl Creatinine 4.00 0.60-1.40 mg/dl Est Creatinine Clear Calc Drug Dose 30.8 ml/min Estimated GFR () 20.6 Estimated GFR (Non- 17.8 BUN/Creatinine Ratio 4.3 10-20 Random Glucose 81 70-99 mg/dl Calcium Level 7.7 8.5-10.1 mg/dl Ionized Calcium 1.07 1.12-1.32 mmol/l Phosphorus Level 4.5 2.5-4.9 mg/dl Magnesium Level 1.9 1.8-2.4 mg/dl Total Creatine Kinase 32 39-308 U/L Microbiology Results 09/19/16 C.difficile Toxin B Gene (PCR) - Final, Complete No C. difficile toxin B gene detected
[2016-09-19 18:00] VITALS: O2SAT 98
--- NOTE | 2016-09-19 21:59 | Orthopedic Progress Note ---
Orthopedic Progress Note Date of Service Sep 19, 2016. Subjective Additional Notes: Pt seen earlier this evening prior to him being transferred to the 4th floor. Pt states he feels about the same as yesterday. No new changes. Went for MRI today. Objective No obvious changes from previous exam. Swelling continues with the RUE along with erythema around the incision area/shoulder. Date Time Temp Pulse Resp B/P Pulse Ox O2 Delivery O2 Flow Rate FiO2 09/19/16 16:34 37.0 94 16 100 09/19/16 16:11 37.0 94 16 160/98 100 Room Air 09/19/16 16:00 Room Air 09/19/16 12:00 Room Air 09/19/16 11:46 37.5 104 20 138/83 93 Room Air 09/19/16 08:03 37.2 93 18 131/89 100 Room Air 09/19/16 08:00 Room Air 09/19/16 04:00 Room Air 09/19/16 03:00 37.3 103 20 137/90 94 Room Air 09/18/16 23:59 Room Air 09/18/16 23:20 37.5 88 18 146/94 98 Room Air Laboratory Results 24 Hours: Test 09/19/16 07:40 White Blood Count 9.82 K/uL Red Blood Count 3.96 M/uL Hemoglobin 8.3 g/dL Hematocrit 27.7 % Mean Corpuscular Volume 69.9 fL Mean Corpuscular Hemoglobin 21.0 pg Mean Corpuscular Hemoglobin Concent 30.0 g/dl Platelet Count 254 K/uL Mean Platelet Volume 9.7 fL Neutrophils (%) (Auto) 57.6 % Lymphocytes (%) (Auto) 21.3 % Monocytes (%) (Auto) 9.4 % Eosinophils (%) (Auto) 11.2 % Basophils (%) (Auto) 0.4 % Neutrophils # (Auto) 5.66 K/uL Lymphocytes # (Auto) 2.09 K/uL Monocytes # (Auto) 0.92 K/uL Eosinophils # (Auto) 1.10 K/uL Basophils # (Auto) 0.04 K/uL Additional Notes: MRI results: IMPRESSION: 1. Two small adjacent subcutaneous fluid collections deep to the scar within the lateral right shoulder, superficial to the deltoid muscle. The posterior fluid collection is similar to MRI of July 03, 2016 while the smaller anterior fluid collection is new since that exam. These are nonspecific and may reflect seromas. However, an infected fluid collection cannot be excluded by MRI. Mild nonspecific edema within the deltoid muscle. This could be due to postoperative change or myositis. 2. No evidence of osteomyelitis within the right shoulder. 3. No right shoulder joint effusion. 4. Super status tendinopathy with no full-thickness tear. 5. Complex degenerative labral tear. 6. Study mildly compromised by motion artifact. Assessment & Plan Assessment: Chronic Infection Right Shoulder Plan: As per [facility] Hospitalist RUE US results as noted above. MRI performed today. Results noted above. Pain Management on board. Pt hoping that IV meds can be increased slightly. Infectious Disease managing antibx Dr Byrd reviewed MRI today. Noted decrease in WBC's. Afeb. Will hold off from surgery at this point. Dr Byrd to reassess tomorrow. Inhouse Planning Pain Management: Oxycontin, Dilaudid, Oxy IR
[2016-09-20] VITALS (7 sets, daily range): BP systolic 104–172; BP diastolic 65–88; PULSE 81–92; TEMP 36.8–38.2; O2SAT 93–99
[2016-09-20] MEDS: SODIUM CHLORIDE 0.9% IV SCH (00:46)
[2016-09-20] MEDS: DAPTOMYCIN IV SCH (00:46)
[2016-09-20] MEDS: DiphenhydrAMINE HCL 50 MG/ML VIAL IV PRN ×3 (00:55→15:52)
[2016-09-20] MEDS: HYDROmorphone INJ 1 MG/ML SYR IV PRN ×5 (00:56→19:31)
[2016-09-20] MEDS: OXYCODONE HCL IR 5 MG TAB (IMMEDIATE RELEASE) PO PRN ×2 (02:17→21:57)
[2016-09-20] MEDS: PIPERACILL/TAZOBAC IV 3.375 GM in DEXTROSE 5% 100ML 100 ML IV SCH ×3 (04:23→19:31)
[2016-09-20] MEDS: SODIUM CHLORIDE 0.9% 1000ML 1,000 ML IV SCH (04:35)
[2016-09-20 05:47] LABS: BASO % 0.3 %; BASO ABS # 0.02 K/uL (0-0.2); EOS % 12.6 %; HEMATOCRIT 25.5 % (42-52); IG% 0.3 %; LYMPH % 23.3 %; LYMPH ABS # 1.66 K/uL (1.2-3.4); MEAN CELL VOLUME 71.2 fL (80-100); MEAN CORPUSCULAR HEMOGLOBIN 21.5 pg (25-34); MEAN CORPUSCULAR HGB CONC 30.2 g/dl (32-36); MEAN PLATELET VOLUME 9.2 fL (7.4-10.4); MONO % 8.7 %; NEUT % 54.8 %; PLATELET COUNT 252 K/uL (130-400); RED BLOOD COUNT 3.58 M/uL (4.7-6.1); WHITE BLOOD COUNT 7.12 K/uL (4.8-10.8)
[2016-09-20 06:17] LABS: CALCIUM 7.5 mg/dl (8.5-10.1); CREATININE 3.1 mg/dl (0.60-1.40); MAGNESIUM 1.8 mg/dl (1.8-2.4); POTASSIUM 3.8 mmol/L (3.5-5.1)
[2016-09-20 06:18] LABS: PHOSPHORUS 3.6 mg/dl (2.5-4.9)
[2016-09-20 06:23] LABS: COMPLETE YES; OVALOCYTES 1+; TEAR DROP CELLS 1+
[2016-09-20] MEDS: GABAPENTIN 600 MG TAB PO SCH ×2 (07:56→19:55)
[2016-09-20] MEDS: OXYCODONE HCL 20 MG TABCR (OXYCONTIN) PO SCH ×2 (07:56→21:57)
[2016-09-20] MEDS: OSELTAMIVIR PHOSPHATE SUSP 30 MG/5 ML UDP PO SCH ×2 (07:56→19:55)
--- NOTE | 2016-09-20 08:02 | DIAGNOSTIC IMAGING REPORT ---
CHEST ONE VIEW PORTABLE CLINICAL HISTORY: congestion COMPARISON STUDY: 09/18/2016 FINDINGS: The cardiac and mediastinal contours remain stable. The heart is mildly enlarged. There is mild central pulmonary vascular congestion. There is no focal pulmonary consolidation. There are no pleural effusions. There is no change in the position of the right internal jugular central venous catheter.[ IMPRESSION: Mild pulmonary vascular congestion. No evidence of focal pulmonary consolidation Electronically signed by: Daniel Cole M.D. 09/20/2016 8:01 AM Dictated Date/Time: 09/20/2016 8:00 AM
--- NOTE | 2016-09-20 10:26 | Nephrology Progress Note ---
Nephrology Progress Note Date of Service: Sep 20, 2016. Subjective 40 yo male with right upper extremity infection with redness and swelling and has positive bacteremia with intermittent fevers. had дмитрий-creatinine has peaked and trending down. pt urinating well. still with swelling in arm but less red. Objective Date Time Temp Pulse Resp B/P Pulse Ox O2 Delivery O2 Flow Rate FiO2 09/20/16 08:00 97 Room Air 09/20/16 07:52 36.8 81 18 104/71 97 Room Air 09/20/16 00:16 37.6 92 18 128/88 98 Room Air 09/20/16 00:10 98 Room Air 09/19/16 18:00 98 Room Air 09/19/16 16:34 37.0 94 16 100 09/19/16 16:11 37.0 94 16 160/98 100 Room Air 09/19/16 16:00 Room Air 09/19/16 12:00 Room Air 09/19/16 11:46 37.5 104 20 138/83 93 Room Air Physical Exam: General-aaox3 Eyes-no scleral icterus ENT-mmm Neck-supple Lungs-clear Heart-regular Abdomen-bs+ s/nt/nd Extremities-right upper extremity erythema and swelling-appears better today, + mild edema Neuro-nonfocal Current Inpatient Medications Medications (Trade) Dose Ordered Sig/Diane Route Start Time Stop Time Status Last Admin Dose Admin Acetaminophen (Tylenol Tab) 650 mg Q4H PRN PO 09/17/16 02:30 10/17/16 02:29 09/17/16 23:31 650 MG Gabapentin (Neurontin Tab) 600 mg BID PO 09/17/16 09:00 10/17/16 08:59 09/20/16 07:56 600 MG Oxycodone HCl (Roxicodone Immediate Rel Tab) 20 mg Q6H PRN PO 09/17/16 03:00 10/01/16 02:59 09/20/16 02:17 20 MG Hydromorphone HCl (Dilaudid Inj) 1 mg Q3H PRN IV 09/17/16 03:00 10/01/16 02:59 09/20/16 04:28 1 MG Oxycodone HCl 20 mg 20 mg Q12 PO 09/17/16 09:00 10/01/16 08:59 09/20/16 07:56 20 MG Piperacillin Sod/ Tazobactam Sod/ Dextrose (Zosyn Iv/D5 100ml) 115 ml @ 28 mls/hr Q8H IV 09/17/16 04:00 09/27/16 03:59 09/20/16 04:23 28 MLS/HR Ondansetron HCl (Zofran Inj) 4 mg Q6H PRN IV 09/17/16 03:45 10/17/16 03:44 09/19/16 10:40 4 MG Piperacillin Sod/ Tazobactam Sod (Consult) 1 ea UD PRN N/A 09/17/16 04:30 10/17/16 04:29 Heparin Sodium (Porcine) (Heparin 10 Unit/ ml 5 ml Flush) 5 ml PRN PRN FLUSH 09/18/16 00:45 10/18/16 00:44 Daptomycin (Consult) 1 UD PRN N/A 09/18/16 10:15 10/18/16 10:14 Miscellaneous Information (Pharmacy Consult) 1 UD PRN N/A 09/18/16 10:15 10/18/16 10:14 Oseltamivir Phosphate 30 mg 30 mg BID PO 09/18/16 21:00 09/21/16 09:01 09/20/16 07:56 30 MG Daptomycin/Sodium Chloride (Cubicin IV/Nss 50ml) 61.7 ml @ 120 mls/hr DAILY@0030 IV 09/19/16 00:30 10/01/16 00:29 09/20/16 00:46 120 MLS/HR Diphenhydramine HCl 25 mg 25 mg TID PRN IV 09/18/16 12:00 10/18/16 11:59 09/20/16 07:57 25 MG Sodium Chloride (1/2 Nss 1000ml) 1,000 ml @ 100 mls/hr Q10H IV 09/20/16 10:15 10/20/16 10:14 UNV Last 24 Hours Test 09/20/16 05:15 White Blood Count 7.12 K/uL Red Blood Count 3.58 M/uL Hemoglobin 7.7 g/dL Hematocrit 25.5 % Mean Corpuscular Volume 71.2 fL Mean Corpuscular Hemoglobin 21.5 pg Mean Corpuscular Hemoglobin Concent 30.2 g/dl Platelet Count 252 K/uL Mean Platelet Volume 9.2 fL Neutrophils (%) (Auto) 54.8 % Lymphocytes (%) (Auto) 23.3 % Monocytes (%) (Auto) 8.7 % Eosinophils (%) (Auto) 12.6 % Basophils (%) (Auto) 0.3 % Neutrophils # (Auto) 3.90 K/uL Lymphocytes # (Auto) 1.66 K/uL Monocytes # (Auto) 0.62 K/uL Eosinophils # (Auto) 0.90 K/uL Basophils # (Auto) 0.02 K/uL RDW Standard Deviation 45.4 fL RDW Coefficient of Variation 17.2 % Immature Granulocyte % (Auto) 0.3 % Immature Granulocyte # (Auto) 0.02 K/uL Tear Drop Cells 1+ Ovalocytes 1+ Sodium Level 148 mmol/L Potassium Level 3.8 mmol/L Chloride Level 114 mmol/L Carbon Dioxide Level 28 mmol/L Anion Gap 6.0 mmol/L Blood Urea Nitrogen 12 mg/dl Creatinine 3.10 mg/dl Est Creatinine Clear Calc Drug Dose 39.7 ml/min Estimated GFR () 28.1 Estimated GFR (Non- 24.2 BUN/Creatinine Ratio 4.0 Random Glucose 119 mg/dl Calcium Level 7.5 mg/dl Ionized Calcium 1.09 mmol/l Phosphorus Level 3.6 mg/dl Magnesium Level 1.8 mg/dl Assessment & Plan [id number] in setting of volume depletion and sepsis causing atn. creatinine has peaked and trending down. hypernatremia-sodium levels trending up, to switch from normal saline to 1/2ns. hypocalcemia-ionized calcium continues to be low. to redose one gram of calcium gluconate
[2016-09-20] MEDS: SODIUM CHLORIDE 0.45% 1000ML 1,000 ML IV SCH ×2 (10:59→19:56)
[2016-09-20] MEDS ORDERED: CALCIUM GLUCONATE 10% 1,000 MG in SODIUM CHLORIDE 0.9% 50ML 50 ML IV ONE (11:00)
[2016-09-20 12:51] LABS: HEMATOCRIT 27.3 % (42-52)
--- NOTE | 2016-09-20 16:59 | Progress Note ---
Orthopedic SOAP Note Subjective Date of Service: Sep 20, 2016. Additional Notes: pain controlled ,not feeling as sick Problem List Medical Problems: (1) Abscess of right arm Status: Acute (2) Cellulitis of shoulder Status: Acute (3) Fever Status: Acute (4) Hypotension Status: Acute (5) Infection of shoulder Status: Acute (6) Right arm cellulitis Status: Acute (7) Sepsis Status: Acute (8) Sepsis Status: Acute (9) Sepsis Status: Acute (10) Septic arthritis of shoulder, right Status: Acute (11) Septic joint of right shoulder region Status: Acute Objective some swelling soft tissue shoulder around scar but no drainage noted,tender to palpation no major erythema Date Time Temp Pulse Resp B/P Pulse Ox O2 Delivery O2 Flow Rate FiO2 09/20/16 15:26 37.2 91 18 117/74 93 Room Air 09/20/16 08:00 97 Room Air 09/20/16 07:52 36.8 81 18 104/71 97 Room Air 09/20/16 00:16 37.6 92 18 128/88 98 Room Air 09/20/16 00:10 98 Room Air 09/19/16 18:00 98 Room Air Laboratory Results 24 Hours: Test 09/20/16 05:15 09/20/16 12:29 White Blood Count 7.12 K/uL Red Blood Count 3.58 M/uL Hemoglobin 7.7 g/dL 8.2 g/dL Hematocrit 25.5 % 27.3 % Mean Corpuscular Volume 71.2 fL Mean Corpuscular Hemoglobin 21.5 pg Mean Corpuscular Hemoglobin Concent 30.2 g/dl Platelet Count 252 K/uL Mean Platelet Volume 9.2 fL Neutrophils (%) (Auto) 54.8 % Lymphocytes (%) (Auto) 23.3 % Monocytes (%) (Auto) 8.7 % Eosinophils (%) (Auto) 12.6 % Basophils (%) (Auto) 0.3 % Neutrophils # (Auto) 3.90 K/uL Lymphocytes # (Auto) 1.66 K/uL Monocytes # (Auto) 0.62 K/uL Eosinophils # (Auto) 0.90 K/uL Basophils # (Auto) 0.02 K/uL Assessment Chronic Infection Right Shoulder Plan As per [facility] Hospitalist RUE US results as noted above. MRI performed today. Results noted above. Pain Management on board. Infectious Disease managing antibx Dr Byrd reviewed MRI today. Noted decrease in WBC's. Afeb. small fluid collections subcutaneous around scar,not clear if residual from prior i and d or if actually infected. would rx nonop for now and if not making good progress consider repeat incision and drainage.
--- NOTE | 2016-09-20 18:28 | Progress Note ---
Internal Med Progress Note Date of Service: Sep 20, 2016. Provider Documentation: SUBJECTIVE: complains of pain in his right shoulder pain in his back and legs ambulating ok' eating ok 'has diarrhea had mild temp spike OBJECTIVE: Vital Signs-as noted below Exam: General-alert and oriented x 3 Not in distress ENT-normal hearing Neck-no neck masses Lungs-cta b/l no wheezing no crackles Heart-s1 and s2 heard regular rate and rhythm no murmurs' Abdomen-soft bowel sounds present non tender no distension Extremities-right shoulder and arm region erythematous and painful movements. Lower extremity edema present. Neuro-alert and awake moves extremities Lab data as noted below. ASSESSMENT & PLAN: 40 yoM with h/o sepsis 2/2 bacteremia and chronic shoulder infection on buttermaker abx presents with fever. 1. Sepsis 2/2 bacteremia-enterococcus and GNBs growing in blood cultures. Influenza a positive and on Tamiflu on iv daptomycin and zosyn. Ortho and ID on board to continue current abx MRI seromas vs infection Ortho to make decision about I and D. hemodynamics stable plan to continue iv abx for now 2. Chronic R shoulder pain-worse in setting of recent infection. Pt reports recently being off narcotics but now is requiring SR/IR oxy. cesar management consulted and appreciate inputs.To continue current pain regimen 3. Pruritus-generalized, patient states this is common for him when he takes IV abx. On IV Benadryl prn.No complaints today. 4. JACQUELINE-likely 2/2 sepsis--Worsening Cr Abx as per pharmacy Consulted nephrology and appreciate inputs will f/u labs. Continue iv fluids and abx. CR 3.1 today f/u labs Anemia' mostly aocd will f/u stool for occult blood and iron studies' f/u labs. DVT PROPHYLAXIS scds DISPOSITION to be determined Vital Signs: Date Time Temp Pulse Resp B/P Pulse Ox O2 Delivery O2 Flow Rate FiO2 09/20/16 16:00 93 Room Air 09/20/16 15:26 37.2 91 18 117/74 93 Room Air 09/20/16 08:00 97 Room Air 09/20/16 07:52 36.8 81 18 104/71 97 Room Air 09/20/16 00:16 37.6 92 18 128/88 98 Room Air 09/20/16 00:10 98 Room Air Lab Results: Results Past 24 Hours Test 09/20/16 05:15 09/20/16 12:29 Range/Units White Blood Count 7.12 4.8-10.8 K/uL Red Blood Count 3.58 4.7-6.1 M/uL Hemoglobin 7.7 8.2 14.0-18.0 g/dL Hematocrit 25.5 27.3 42-52 % Mean Corpuscular Volume 71.2 80-100 fL Mean Corpuscular Hemoglobin 21.5 25-34 pg Mean Corpuscular Hemoglobin Concent 30.2 32-36 g/dl Platelet Count 252 130-400 K/uL Mean Platelet Volume 9.2 7.4-10.4 fL Neutrophils (%) (Auto) 54.8 % Lymphocytes (%) (Auto) 23.3 % Monocytes (%) (Auto) 8.7 % Eosinophils (%) (Auto) 12.6 % Basophils (%) (Auto) 0.3 % Neutrophils # (Auto) 3.90 1.4-6.5 K/uL Lymphocytes # (Auto) 1.66 1.2-3.4 K/uL Monocytes # (Auto) 0.62 0.11-0.59 K/uL Eosinophils # (Auto) 0.90 0-0.5 K/uL Basophils # (Auto) 0.02 0-0.2 K/uL RDW Standard Deviation 45.4 36.4-46.3 fL RDW Coefficient of Variation 17.2 11.5-14.5 % Immature Granulocyte % (Auto) 0.3 % Immature Granulocyte # (Auto) 0.02 0.00-0.02 K/uL Tear Drop Cells 1+ Ovalocytes 1+ Sodium Level 148 136-145 mmol/L Potassium Level 3.8 3.5-5.1 mmol/L Chloride Level 114 98-107 mmol/L Carbon Dioxide Level 28 21-32 mmol/L Anion Gap 6.0 3-11 mmol/L Blood Urea Nitrogen 12 7-18 mg/dl Creatinine 3.10 0.60-1.40 mg/dl Est Creatinine Clear Calc Drug Dose 39.7 ml/min Estimated GFR () 28.1 Estimated GFR (Non- 24.2 BUN/Creatinine Ratio 4.0 10-20 Random Glucose 119 70-99 mg/dl Calcium Level 7.5 8.5-10.1 mg/dl Ionized Calcium 1.09 1.12-1.32 mmol/l Phosphorus Level 3.6 2.5-4.9 mg/dl Magnesium Level 1.8 1.8-2.4 mg/dl
[2016-09-20] MEDS ORDERED: CASPOFUNGIN~PHARMACY CONSULT IN PROGRESS PRN (19:30)
[2016-09-20] MEDS ORDERED: CASPOFUNGIN INJ 70 MG in SODIUM CHLORIDE 0.9% 250ML 250 ML IV ONE (19:30)
--- NOTE | 2016-09-20 21:42 | Infectious Disease Progress Nt ---
Progress Note Date of Service Sep 20, 2016. Subjective Pt evaluation today including: conversation w/ patient, physical exam, chart review, lab review, review of studies, conversation w/ systems consultant, review of inpatient medication list Still with right shoulder pain, essentially unchanged. Remains afebrile. No increase in drainage from the area. Tolerating antibiotics thus far. All Other Systems: Reviewed and Negative Medications Current Inpatient Medications Medications (Trade) Dose Ordered Sig/Diane Route Start Time Stop Time Status Last Admin Dose Admin Acetaminophen (Tylenol Tab) 650 mg Q4H PRN PO 09/17/16 02:30 10/17/16 02:29 09/17/16 23:31 650 MG Gabapentin (Neurontin Tab) 600 mg BID PO 09/17/16 09:00 10/17/16 08:59 09/20/16 19:55 600 MG Oxycodone HCl (Roxicodone Immediate Rel Tab) 20 mg Q6H PRN PO 09/17/16 03:00 10/01/16 02:59 09/20/16 02:17 20 MG Hydromorphone HCl (Dilaudid Inj) 1 mg Q3H PRN IV 09/17/16 03:00 10/01/16 02:59 09/20/16 19:31 1 MG Oxycodone HCl 20 mg 20 mg Q12 PO 09/17/16 09:00 10/01/16 08:59 09/20/16 07:56 20 MG Piperacillin Sod/ Tazobactam Sod/ Dextrose (Zosyn Iv/D5 100ml) 115 ml @ 28 mls/hr Q8H IV 09/17/16 04:00 09/27/16 03:59 09/20/16 19:31 28 MLS/HR Ondansetron HCl (Zofran Inj) 4 mg Q6H PRN IV 09/17/16 03:45 10/17/16 03:44 09/19/16 10:40 4 MG Piperacillin Sod/ Tazobactam Sod (Consult) 1 ea UD PRN N/A 09/17/16 04:30 10/17/16 04:29 Heparin Sodium (Porcine) (Heparin 10 Unit/ ml 5 ml Flush) 5 ml PRN PRN FLUSH 09/18/16 00:45 10/18/16 00:44 Daptomycin (Consult) 1 ea UD PRN N/A 09/18/16 10:15 10/18/16 10:14 Miscellaneous Information (Pharmacy Consult) 1 ea UD PRN N/A 09/18/16 10:15 10/18/16 10:14 Oseltamivir Phosphate 30 mg 30 mg BID PO 09/18/16 21:00 09/21/16 09:01 09/20/16 19:55 30 MG Daptomycin/Sodium Chloride (Cubicin IV/Nss 50ml) 61.7 ml @ 120 mls/hr DAILY@0030 IV 09/19/16 00:30 10/01/16 00:29 09/20/16 00:46 120 MLS/HR Diphenhydramine HCl 25 mg 25 mg TID PRN IV 09/18/16 12:00 10/18/16 11:59 09/20/16 15:52 25 MG Sodium Chloride 1,000 ml @ 100 mls/hr Q10H IV 09/20/16 10:15 10/20/16 10:14 09/20/16 19:56 100 MLS/HR Caspofungin/ Sodium Chloride (Cancidas Inj/ Nss 250ml) 260 ml @ 250 mls/hr Q24H IV 09/21/16 20:00 10/21/16 19:59 Miscellaneous Information 1 ea UD PRN N/A 09/20/16 19:30 10/20/16 19:29 Objective Vital Signs Date Time Temp Pulse Resp B/P Pulse Ox O2 Delivery O2 Flow Rate FiO2 09/20/16 16:00 93 Room Air 09/20/16 15:26 37.2 91 18 117/74 93 Room Air 09/20/16 08:00 97 Room Air 09/20/16 07:52 36.8 81 18 104/71 97 Room Air 09/20/16 00:16 37.6 92 18 128/88 98 Room Air 09/20/16 00:10 98 Room Air Physical Exam General Appearance: WD/WN, no apparent distress Eyes: normal inspection, sclerae normal ENT: normal ENT inspection, pharynx normal Neck: supple, no adenopathy, trachea midline Respiratory/Chest: chest non-tender, lungs clear, normal breath sounds, no respiratory distress Cardiovascular: regular rate, rhythm, no gallop, no murmur Abdomen: normal bowel sounds, non tender, soft, no organomegaly Extremities: no calf tenderness, normal capillary refill Neurologic/Psychiatric: alert, oriented x 3 Skin: normal color, no rash, + pertinent finding ( Improved right shoulder erythema) Laboratory Results RUN DATE: 09/21/16 [facility] LAB PAGE 1 RUN TIME: 738 Specimen Inquiry PATIENT: ODALYS GALVEZ LOC: [id number] U # : [id number] AGE/SX: 40/M ROOM: [facility] REG : 09/17/[address]: Garcia Garcia MD : [id number] BED: 2 DIS : STATUS: ADM IN TLOC: SPEC #: [id number] RANDA: 09/18/16 STATUS: RES REQ #: [id number] RECD: 09/18/16 [facility] DR: Garcia Garcia MD SOURCE: BLOOD ENTR: 09/18/16-[address]: Jose Bailey MD [facility]: Felipe Clark M.D. No Doctor, Joseline Irizarry I., Kenan Esquivel M.D. Thaker, Upendra., M.D. ORDERED: BLOOD CULTURE Procedure Result Verified Site BLD CULT Preliminary 09/21/16-39 Organism 1 YEAST SENS NO SENSITIVITY TO FOLLOW Phoned Positive Blood Culture Gram Stain Report to LUZ MARINA SZYMANSKI on 09/20/16 At 1903 By JENARO. Results were verbalized back to JENARO. Last 24 Hours Test 09/20/16 05:15 09/20/16 12:29 White Blood Count 7.12 K/uL Red Blood Count 3.58 M/uL Hemoglobin 7.7 g/dL 8.2 g/dL Hematocrit 25.5 % 27.3 % Mean Corpuscular Volume 71.2 fL Mean Corpuscular Hemoglobin 21.5 pg Mean Corpuscular Hemoglobin Concent 30.2 g/dl Platelet Count 252 K/uL Mean Platelet Volume 9.2 fL Neutrophils (%) (Auto) 54.8 % Lymphocytes (%) (Auto) 23.3 % Monocytes (%) (Auto) 8.7 % Eosinophils (%) (Auto) 12.6 % Basophils (%) (Auto) 0.3 % Neutrophils # (Auto) 3.90 K/uL Lymphocytes # (Auto) 1.66 K/uL Monocytes # (Auto) 0.62 K/uL Eosinophils # (Auto) 0.90 K/uL Basophils # (Auto) 0.02 K/uL RDW Standard Deviation 45.4 fL RDW Coefficient of Variation 17.2 % Immature Granulocyte % (Auto) 0.3 % Immature Granulocyte # (Auto) 0.02 K/uL Tear Drop Cells 1+ Ovalocytes 1+ Sodium Level 148 mmol/L Potassium Level 3.8 mmol/L Chloride Level 114 mmol/L Carbon Dioxide Level 28 mmol/L Anion Gap 6.0 mmol/L Blood Urea Nitrogen 12 mg/dl Creatinine 3.10 mg/dl Est Creatinine Clear Calc Drug Dose 39.7 ml/min Estimated GFR () 28.1 Estimated GFR (Non- 24.2 BUN/Creatinine Ratio 4.0 Random Glucose 119 mg/dl Calcium Level 7.5 mg/dl Ionized Calcium 1.09 mmol/l Phosphorus Level 3.6 mg/dl Magnesium Level 1.8 mg/dl Assessment and Plan 40-year-old male with 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 now also growing yeast. Caspofungin added to current antibiotics, will likely need to restart daptomycin tomorrow. I suspect patient has been manipulating his central catheter given multiple episodes of polymicrobial PICC infections. Will discuss further with all involved.
[2016-09-21] VITALS (9 sets, daily range): BP systolic 107–153; BP diastolic 64–84; PULSE 65–84; TEMP 36.8–37.2; O2SAT 92–98
[2016-09-21] MEDS: SODIUM CHLORIDE 0.9% IV SCH (00:43)
[2016-09-21] MEDS: DAPTOMYCIN IV SCH (00:43)
[2016-09-21] MEDS: HYDROmorphone INJ 1 MG/ML SYR IV PRN ×7 (00:44→20:57)
[2016-09-21] MEDS: ONDANSETRON INJ 2 MG/ML 2 ML VIAL IV PRN ×2 (01:07→17:42)
[2016-09-21] MEDS: DiphenhydrAMINE HCL 50 MG/ML VIAL IV PRN ×2 (01:07→14:13)
[2016-09-21] MEDS: PIPERACILL/TAZOBAC IV 3.375 GM in DEXTROSE 5% 100ML 100 ML IV SCH ×3 (03:33→22:14)
[2016-09-21] MEDS: OXYCODONE HCL IR 5 MG TAB (IMMEDIATE RELEASE) PO PRN ×3 (04:58→23:56)
[2016-09-21 06:17] LABS: BASO % 0.5 %; BASO ABS # 0.04 K/uL (0-0.2); EOS % 13.6 %; HEMATOCRIT 24.7 % (42-52); IG% 0.1 %; LYMPH % 25.5 %; LYMPH ABS # 2.01 K/uL (1.2-3.4); MEAN CORPUSCULAR HEMOGLOBIN 21.2 pg (25-34); MEAN CORPUSCULAR HGB CONC 30.4 g/dl (32-36); NEUT % 53.3 %; PLATELET COUNT 251 K/uL (130-400); RED BLOOD COUNT 3.53 M/uL (4.7-6.1); WHITE BLOOD COUNT 7.89 K/uL (4.8-10.8)
[2016-09-21 06:51] LABS: BUN/CREATININE RATIO 3.5 (10-20); CALCIUM 7.6 mg/dl (8.5-10.1); CREATININE 2.2 mg/dl (0.60-1.40); POTASSIUM 3.2 mmol/L (3.5-5.1)
[2016-09-21 06:54] LABS: ALB/GLOB RATIO 0.7 (0.9-2); FERRITIN 13.1 ng/ml (8.0-388.0)
[2016-09-21] MEDS: SODIUM CHLORIDE 0.45% 1000ML 1,000 ML IV SCH (06:58)
[2016-09-21 07:53] LABS: COMPLETE YES; HYPOCHROMIA PRESENT; OVALOCYTES 1+
[2016-09-21] MEDS: OSELTAMIVIR PHOSPHATE SUSP 30 MG/5 ML UDP PO SCH (08:40)
[2016-09-21] MEDS: GABAPENTIN 600 MG TAB PO SCH ×2 (08:40→20:58)
[2016-09-21] MEDS: OXYCODONE HCL 20 MG TABCR (OXYCONTIN) PO SCH ×2 (08:40→22:11)
--- NOTE | 2016-09-21 09:08 | Orthopedic Progress Note ---
Orthopedic Progress Note Date of Service Sep 21, 2016. Subjective Reports: feeling well, pain controlled w PO medications, Denies: SOB, calf pain , chest pain, complaints, light headedness, nausea / vomiting Additional Notes: States still feeling well. Had a fever last PM, afebrile this AM. Hgb 7.5 Objective N/V intact, capillary refill less than 2 sec., incision C/D/I, A&O x3 Right shoulder no appreciable erythema, no drainage from previous incisional areas. 30-45 degrees of active FE limited by pain, good elbow motion. Fingers mobile. Date Time Temp Pulse Resp B/P Pulse Ox O2 Delivery O2 Flow Rate FiO2 09/21/16 07:45 36.9 79 16 107/69 92 Room Air 09/21/16 00:00 93 Room Air 09/20/16 23:51 38.2 84 20 172/65 99 Room Air 09/20/16 16:00 93 Room Air 09/20/16 15:26 37.2 91 18 117/74 93 Room Air Laboratory Results 24 Hours: Test 09/20/16 12:29 09/21/16 05:15 Hematocrit 27.3 % 24.7 % Hemoglobin 8.2 g/dL 7.5 g/dL White Blood Count 7.89 K/uL Red Blood Count 3.53 M/uL Mean Corpuscular Volume 70.0 fL Mean Corpuscular Hemoglobin 21.2 pg Mean Corpuscular Hemoglobin Concent 30.4 g/dl Platelet Count 251 K/uL Mean Platelet Volume 9.0 fL Neutrophils (%) (Auto) 53.3 % Lymphocytes (%) (Auto) 25.5 % Monocytes (%) (Auto) 7.0 % Eosinophils (%) (Auto) 13.6 % Basophils (%) (Auto) 0.5 % Neutrophils # (Auto) 4.21 K/uL Lymphocytes # (Auto) 2.01 K/uL Monocytes # (Auto) 0.55 K/uL Eosinophils # (Auto) 1.07 K/uL Basophils # (Auto) 0.04 K/uL Assessment & Plan Assessment: Chronic Infection Right Shoulder Multiple organism sepsis Plan: As per [facility] Hospitalist Pain Management on board. Infectious Disease managing antibx MRI- Small fluid collections subcutaneous around scar,not clear if residual from prior i and d or if actually infected. Would rx nonop for now and if not making good progress consider repeat incision and drainage. Inhouse Planning Pain Management: Oxycontin, Dilaudid, Oxy IR
--- NOTE | 2016-09-21 09:21 | Nephrology Progress Note ---
Nephrology Progress Note Date of Service: Sep 21, 2016. Subjective 40 yo male with right upper extremity infection with redness and swelling and has positive bacteremia with intermittent fevers. creatinine improving. starting to have fluid retention in the legs. redness in arm is better but still with soreness. Objective Date Time Temp Pulse Resp B/P Pulse Ox O2 Delivery O2 Flow Rate FiO2 09/21/16 07:45 36.9 79 16 107/69 92 Room Air 09/21/16 00:00 93 Room Air 09/20/16 23:51 38.2 84 20 172/65 99 Room Air 09/20/16 16:00 93 Room Air 09/20/16 15:26 37.2 91 18 117/74 93 Room Air Physical Exam: General-aaox3 Eyes-no scleral icterus ENT-mmm Neck-supple Lungs-cta Heart-rrr Abdomen-bs+ s/nt/nd Extremities-right upper extremity swelling with mild redness, bilateral edema r> l in legs Neuro-nonfocal Current Inpatient Medications Medications (Trade) Dose Ordered Sig/Diane Route Start Time Stop Time Status Last Admin Dose Admin Acetaminophen (Tylenol Tab) 650 mg Q4H PRN PO 09/17/16 02:30 10/17/16 02:29 09/17/16 23:31 650 MG Gabapentin (Neurontin Tab) 600 mg BID PO 09/17/16 09:00 10/17/16 08:59 09/21/16 08:40 600 MG Oxycodone HCl (Roxicodone Immediate Rel Tab) 20 mg Q6H PRN PO 09/17/16 03:00 10/01/16 02:59 09/21/16 04:58 20 MG Hydromorphone HCl (Dilaudid Inj) 1 mg Q3H PRN IV 09/17/16 03:00 10/01/16 02:59 09/21/16 06:58 1 MG Oxycodone HCl 20 mg 20 mg Q12 PO 09/17/16 09:00 10/01/16 08:59 09/21/16 08:40 20 MG Piperacillin Sod/ Tazobactam Sod/ Dextrose (Zosyn Iv/D5 100ml) 115 ml @ 28 mls/hr Q8H IV 09/17/16 04:00 09/27/16 03:59 09/21/16 03:33 28 MLS/HR Ondansetron HCl (Zofran Inj) 4 mg Q6H PRN IV 09/17/16 03:45 10/17/16 03:44 09/21/16 01:07 4 MG Piperacillin Sod/ Tazobactam Sod (Consult) 1 ea UD PRN N/A 09/17/16 04:30 10/17/16 04:29 Heparin Sodium (Porcine) (Heparin 10 Unit/ ml 5 ml Flush) 5 ml PRN PRN FLUSH 09/18/16 00:45 10/18/16 00:44 09/21/16 00:44 5 ML Daptomycin (Consult) 1 ea UD PRN N/A 09/18/16 10:15 10/18/16 10:14 Miscellaneous Information 1 ea 1 ea UD PRN N/A 09/18/16 10:15 10/18/16 10:14 Daptomycin/Sodium Chloride (Cubicin IV/Nss 50ml) 61.7 ml @ 120 mls/hr DAILY@0030 IV 09/19/16 00:30 10/01/16 00:29 09/21/16 00:43 120 MLS/HR Diphenhydramine HCl 25 mg 25 mg TID PRN IV 09/18/16 12:00 10/18/16 11:59 09/21/16 01:07 25 MG Sodium Chloride 1,000 ml @ 100 mls/hr Q10H IV 09/20/16 10:15 10/20/16 10:14 09/21/16 06:58 100 MLS/HR Caspofungin/ Sodium Chloride (Cancidas Inj/ Nss 250ml) 260 ml @ 250 mls/hr Q24H IV 09/21/16 20:00 10/21/16 19:59 Miscellaneous Information 1 ea UD PRN N/A 09/20/16 19:30 10/20/16 19:29 Potassium Chloride (Klor-Con M10) 40 meq NOW ONCE PO 09/21/16 09:00 09/21/16 09:01 UNV Last 24 Hours Test 09/20/16 12:29 09/20/16 22:07 09/21/16 05:15 Hemoglobin 8.2 g/dL 7.5 g/dL Hematocrit 27.3 % 24.7 % Stool Occult Blood NEGATIVE White Blood Count 7.89 K/uL Red Blood Count 3.53 M/uL Mean Corpuscular Volume 70.0 fL Mean Corpuscular Hemoglobin 21.2 pg Mean Corpuscular Hemoglobin Concent 30.4 g/dl Platelet Count 251 K/uL Mean Platelet Volume 9.0 fL Neutrophils (%) (Auto) 53.3 % Lymphocytes (%) (Auto) 25.5 % Monocytes (%) (Auto) 7.0 % Eosinophils (%) (Auto) 13.6 % Basophils (%) (Auto) 0.5 % Neutrophils # (Auto) 4.21 K/uL Lymphocytes # (Auto) 2.01 K/uL Monocytes # (Auto) 0.55 K/uL Eosinophils # (Auto) 1.07 K/uL Basophils # (Auto) 0.04 K/uL RDW Standard Deviation 43.8 fL RDW Coefficient of Variation 17.0 % Immature Granulocyte % (Auto) 0.1 % Immature Granulocyte # (Auto) 0.01 K/uL Hypochromasia PRESENT Ovalocytes 1+ Sodium Level 146 mmol/L Potassium Level 3.2 mmol/L Chloride Level 113 mmol/L Carbon Dioxide Level 27 mmol/L Anion Gap 6.0 mmol/L Blood Urea Nitrogen 8 mg/dl Creatinine 2.20 mg/dl Est Creatinine Clear Calc Drug Dose 56.0 ml/min Estimated GFR () 42.5 Estimated GFR (Non- 36.6 BUN/Creatinine Ratio 3.5 Random Glucose 125 mg/dl Calcium Level 7.6 mg/dl Iron Level 15 mcg/dl Total Iron Binding Capacity 277 mcg/dl Transferrin 221 mg/dl Transferrin % Saturation 5 % Ferritin 13.1 ng/ml Total Bilirubin 0.3 mg/dl Aspartate Amino Transf (AST/SGOT) 16 U/L Alanine Aminotransferase (ALT/SGPT) 28 U/L Alkaline Phosphatase 112 U/L Total Protein 5.9 gm/dl Albumin 2.5 gm/dl Globulin 3.4 gm/dl Albumin/Globulin Ratio 0.7 Assessment & Plan fuy-oah-dsumzrmu-atn-creatinine peaked at 4 and now down to 2.2. starting to retain fluid and will stop the iv fluids. hypokalemia-may be having electrolyte losses as kidneys try to reestablish concentration gradient. to give 40meq of kdur this morning. to repeat bmp again this afternoon and replete prn. to check mag and phos as well. hypocalcemia-calcium still low, to check pth levels. replete with 2 grams of calcium gluconate and recheck ionized calcium this afternoon. iron deficiency anemia-to give iv venofer to help with the iron deficiency. question if bleeding anywhere.
[2016-09-21] MEDS ORDERED: POTASSIUM CHLORIDE 10 MEQ TABCR PO ONE (09:45)
[2016-09-21] MEDS ORDERED: CALCIUM GLUCONATE 10% 2,000 MG in SODIUM CHLORIDE 0.9% 50ML 50 ML IV ONE (09:45)
[2016-09-21] MEDS: IRON SUCROSE INJ 100 MG in SODIUM CHLORIDE 0.9% 100ML 100 ML IV SCH (10:34)
[2016-09-21 16:54] LABS: BUN/CREATININE RATIO 3.3 (10-20); CALCIUM 7.8 mg/dl (8.5-10.1); CREATININE 2.2 mg/dl (0.60-1.40); MAGNESIUM 1.4 mg/dl (1.8-2.4); PHOSPHORUS 3.3 mg/dl (2.5-4.9); POTASSIUM 3.9 mmol/L (3.5-5.1)
--- NOTE | 2016-09-21 18:02 | Progress Note ---
Internal Med Progress Note Date of Service: Sep 21, 2016. Provider Documentation: SUBJECTIVE: afebrile pain is same has diarrhea upset that we planning to remove hick man catheter OBJECTIVE: Vital Signs-as noted below Exam: General-alert and oriented x 3 Not in distress ENT-normal hearing Neck-no neck masses Lungs-cta b/l no wheezing no crackles Heart-s1 and s2 heard regular rate and rhythm no murmurs' Abdomen-soft bowel sounds present non tender no distension Extremities-right shoulder and arm region erythematous and painful movements. Lower extremity edema present. Neuro-alert and awake moves extremities Lab data as noted below. ASSESSMENT & PLAN: 40 yoM with h/o sepsis 2/2 bacteremia and chronic shoulder infection on longterm abx presents with fever. 1. Sepsis 2/2 bacteremia- VRE and polymicrobial and yeast not abhi from line culture Influenza a positive and on Tamiflu on iv daptomycin and zosyn and caspofungin Ortho and ID on board to continue current abx MRI seromas vs infection Ortho to make decision about I and D. hemodynamics stable plan to continue iv abx for now hemodynamics stable Plan is very upset for plans to remove his Patten catheter as he says his lines were taken multiple times and each time cath cultures were negative and he is left with lot of scar tissue will d/w ID 2. Chronic R shoulder pain-worse in setting of recent infection. Pt reports recently being off narcotics but now is requiring SR/IR oxy. pain management consulted and appreciate inputs.To continue current pain regimen 3. Pruritus-generalized, patient states this is common for him when he takes IV abx. On IV Benadryl prn.No complaints today. 4. JACQUELINE-likely 2/2 sepsis--Worsening Cr Abx as per pharmacy Consulted nephrology and appreciate inputs will f/u labs. Continue iv fluids and abx. CR2.2 today fluids stopped as per nephro f/u labs Anemia' mostly aocd iron levels low Hemoccult negative hb 7.6 today on iv venofer will transfuse one unit f/u labs. DVT PROPHYLAXIS scds DISPOSITION to be determined Vital Signs: Date Time Temp Pulse Resp B/P Pulse Ox O2 Delivery O2 Flow Rate FiO2 09/21/16 14:51 37.0 84 17 124/76 95 Room Air 09/21/16 08:00 Room Air 09/21/16 07:45 36.9 79 16 107/69 92 Room Air 09/21/16 00:00 93 Room Air 09/20/16 23:51 38.2 84 20 172/65 99 Room Air Lab Results: Results Past 24 Hours Test 09/20/16 22:07 09/21/16 05:15 09/21/16 16:02 Range/Units Stool Occult Blood NEGATIVE NEGATIVE White Blood Count 7.89 4.8-10.8 K/uL Red Blood Count 3.53 4.7-6.1 M/uL Hemoglobin 7.5 14.0-18.0 g/dL Hematocrit 24.7 42-52 % Mean Corpuscular Volume 70.0 80-100 fL Mean Corpuscular Hemoglobin 21.2 25-34 pg Mean Corpuscular Hemoglobin Concent 30.4 32-36 g/dl Platelet Count 251 130-400 K/uL Mean Platelet Volume 9.0 7.4-10.4 fL Neutrophils (%) (Auto) 53.3 % Lymphocytes (%) (Auto) 25.5 % Monocytes (%) (Auto) 7.0 % Eosinophils (%) (Auto) 13.6 % Basophils (%) (Auto) 0.5 % Neutrophils # (Auto) 4.21 1.4-6.5 K/uL Lymphocytes # (Auto) 2.01 1.2-3.4 K/uL Monocytes # (Auto) 0.55 0.11-0.59 K/uL Eosinophils # (Auto) 1.07 0-0.5 K/uL Basophils # (Auto) 0.04 0-0.2 K/uL RDW Standard Deviation 43.8 36.4-46.3 fL RDW Coefficient of Variation 17.0 11.5-14.5 % Immature Granulocyte % (Auto) 0.1 % Immature Granulocyte # (Auto) 0.01 0.00-0.02 K/uL Hypochromasia PRESENT Ovalocytes 1+ Sodium Level 146 144 136-145 mmol/L Potassium Level 3.2 3.9 3.5-5.1 mmol/L Chloride Level 113 110 98-107 mmol/L Carbon Dioxide Level 27 28 21-32 mmol/L Anion Gap 6.0 6.0 3-11 mmol/L Blood Urea Nitrogen 8 7 7-18 mg/dl Creatinine 2.20 2.20 0.60-1.40 mg/dl Est Creatinine Clear Calc Drug Dose 56.0 56.0 ml/min Estimated GFR () 42.5 42.5 Estimated GFR (Non- 36.6 36.6 BUN/Creatinine Ratio 3.5 3.3 10-20 Random Glucose 125 93 70-99 mg/dl Calcium Level 7.6 7.8 8.5-10.1 mg/dl Iron Level 15 35-175 mcg/dl Total Iron Binding Capacity 277 250-450 mcg/dl Transferrin 221 200-360 mg/dl Transferrin % Saturation 5 20-50 % Ferritin 13.1 8.0-388.0 ng/ml Total Bilirubin 0.3 0.2-1 mg/dl Aspartate Amino Transf (AST/SGOT) 16 15-37 U/L Alanine Aminotransferase (ALT/SGPT) 28 12-78 U/L Alkaline Phosphatase 112 45-117 U/L Total Protein 5.9 6.4-8.2 gm/dl Albumin 2.5 3.4-5.0 gm/dl Globulin 3.4 2.5-4.0 gm/dl Albumin/Globulin Ratio 0.7 0.9-2 Ionized Calcium 1.16 1.12-1.32 mmol/l Phosphorus Level 3.3 2.5-4.9 mg/dl Magnesium Level 1.4 1.8-2.4 mg/dl 25-Hydroxy Vitamin D Total 12.2 30-100 ng/ml Parathyroid Hormone (Intact) 88.3 11.1-79.5 pg/mL
[2016-09-21] MEDS: CASPOFUNGIN INJ 50 MG in SODIUM CHLORIDE 0.9% 250ML 250 ML IV SCH (21:01)
[2016-09-21] MEDS: MAGNESIUM SULFATE 1GM / D5W 1 GM in PREMIXED IN D5W 100 ML IV SCH ×3 (21:05→23:38)
[2016-09-22] VITALS: O2SAT 97
[2016-09-22 00:39] VITALS: BP 138/86; PULSE 71; TEMP 37.2; O2SAT 97
[2016-09-22] MEDS: SODIUM CHLORIDE 0.9% IV SCH (00:52)
[2016-09-22] MEDS: DAPTOMYCIN IV SCH (00:52)
[2016-09-22] MEDS: HYDROmorphone INJ 1 MG/ML SYR IV PRN ×5 (00:53→22:15)
[2016-09-22] MEDS: DiphenhydrAMINE HCL 50 MG/ML VIAL IV PRN ×3 (04:05→22:14)
[2016-09-22] MEDS: ONDANSETRON INJ 2 MG/ML 2 ML VIAL IV PRN ×2 (04:05→17:13)
[2016-09-22] MEDS: PIPERACILL/TAZOBAC IV 3.375 GM in DEXTROSE 5% 100ML 100 ML IV SCH ×3 (05:37→20:27)
[2016-09-22 05:45] LABS: BASO % 0.8 %; BASO ABS # 0.07 K/uL (0-0.2); EOS % 14.1 %; HEMATOCRIT 27.4 % (42-52); IG% 0.5 %; LYMPH % 21.8 %; MEAN CELL VOLUME 71.4 fL (80-100); MEAN CORPUSCULAR HEMOGLOBIN 22.1 pg (25-34); MEAN PLATELET VOLUME 9.3 fL (7.4-10.4); MONO % 7.5 %; NEUT % 55.3 %; PLATELET COUNT 247 K/uL (130-400); RED BLOOD COUNT 3.84 M/uL (4.7-6.1); WHITE BLOOD COUNT 8.27 K/uL (4.8-10.8)
[2016-09-22 06:16] LABS: BUN/CREATININE RATIO 4.3 (10-20); CALCIUM 7.9 mg/dl (8.5-10.1); CREATININE 1.9 mg/dl (0.60-1.40); POTASSIUM 3.3 mmol/L (3.5-5.1)
[2016-09-22 06:41] LABS: COMPLETE YES
--- NOTE | 2016-09-22 08:16 | Orthopedic Progress Note ---
Orthopedic Progress Note Date of Service Sep 22, 2016. Subjective Reports: feeling well, Denies: SOB, calf pain, chest pain, complaints, light headedness, nausea / vomiting Objective N/V intact, capillary refill less than 2 sec., incision C/D/I, A&O x3 ROM unchanged, incision healed, no erythema, no drainage, however is does have a rash this AM on his arm and back, again skin in tact and no drainage. Date Time Temp Pulse Resp B/P Pulse Ox O2 Delivery O2 Flow Rate FiO2 09/22/16 00:39 37.2 71 16 138/86 97 Room Air 09/22/16 00:00 97 Room Air 09/21/16 22:00 71 143/83 09/21/16 20:10 37.1 70 18 153/84 97 09/21/16 19:40 36.9 65 18 134/78 98 09/21/16 19:10 37.2 65 20 126/69 98 09/21/16 18:51 36.8 74 20 107/64 97 09/21/16 16:00 97 Room Air 09/21/16 14:51 37.0 84 17 124/76 95 Room Air Laboratory Results 24 Hours: Test 09/22/16 05:30 White Blood Count 8.27 K/uL Red Blood Count 3.84 M/uL Hemoglobin 8.5 g/dL Hematocrit 27.4 % Mean Corpuscular Volume 71.4 fL Mean Corpuscular Hemoglobin 22.1 pg Mean Corpuscular Hemoglobin Concent 31.0 g/dl Platelet Count 247 K/uL Mean Platelet Volume 9.3 fL Neutrophils (%) (Auto) 55.3 % Lymphocytes (%) (Auto) 21.8 % Monocytes (%) (Auto) 7.5 % Eosinophils (%) (Auto) 14.1 % Basophils (%) (Auto) 0.8 % Neutrophils # (Auto) 4.57 K/uL Lymphocytes # (Auto) 1.80 K/uL Monocytes # (Auto) 0.62 K/uL Eosinophils # (Auto) 1.17 K/uL Basophils # (Auto) 0.07 K/uL Assessment & Plan Assessment: Chronic Pain Right Shoulder Multiple organism sepsis Plan: [place] per [facility] on board. Infectious Disease managing antibx MRI- Small fluid collections subcutaneous around scar,not clear if residual from prior i and d or if actually infected. Would rx nonop for now as previous I&D cultures revealed no organisms...if not making good progress consider repeat incision and drainage. Inhouse Planning Pain Management: Oxycontin, Dilaudid, Oxy IR
[2016-09-22 08:22] VITALS: BP 121/74; PULSE 66; TEMP 36.8; O2SAT 97
[2016-09-22] MEDS ORDERED: POTASSIUM CHLORIDE 10 MEQ TABCR PO ONE ×2 (09:00→12:00)
[2016-09-22] MEDS: OXYCODONE HCL 20 MG TABCR (OXYCONTIN) PO SCH ×2 (09:25→20:37)
[2016-09-22] MEDS: GABAPENTIN 600 MG TAB PO SCH ×2 (09:25→22:15)
[2016-09-22] MEDS: IRON SUCROSE INJ 100 MG in SODIUM CHLORIDE 0.9% 100ML 100 ML IV SCH (10:12)
[2016-09-22] MEDS: OXYCODONE HCL IR 5 MG TAB (IMMEDIATE RELEASE) PO PRN ×2 (10:18→16:09)
--- NOTE | 2016-09-22 10:50 | Nephrology Progress Note ---
Nephrology Progress Note Date of Service: Sep 22, 2016. Subjective 40 yo male with right upper extremity infection with redness and swelling and has positive bacteremia. redness improving and swelling slowly improving. edema much improved in legs. stopped iv fluids yesterday. appetite is ok. Objective Date Time Temp Pulse Resp B/P Pulse Ox O2 Delivery O2 Flow Rate FiO2 09/22/16 08:22 36.8 66 16 121/74 97 Room Air 09/22/16 08:00 Room Air 09/22/16 00:39 37.2 71 16 138/86 97 Room Air 09/22/16 00:00 97 Room Air 09/21/16 22:00 71 143/83 09/21/16 20:10 37.1 70 18 153/84 97 09/21/16 19:40 36.9 65 18 134/78 98 09/21/16 19:10 37.2 65 20 126/69 98 09/21/16 18:51 36.8 74 20 107/64 97 09/21/16 16:00 97 Room Air 09/21/16 14:51 37.0 84 17 124/76 95 Room Air Physical Exam: General-aaox3 Eyes-no scleral icterus ENT-mmm Neck-supple Lungs-clear Heart-regular Abdomen-bs+ s/nt/nd Extremities-right upper extremity swelling with mild redness, no edema in legs Neuro-nonfocal Current Inpatient Medications Medications (Trade) Dose Ordered Sig/Diane Route Start Time Stop Time Status Last Admin Dose Admin Acetaminophen (Tylenol Tab) 650 mg Q4H PRN PO 09/17/16 02:30 10/17/16 02:29 09/17/16 23:31 650 MG Gabapentin (Neurontin Tab) 600 mg BID PO 09/17/16 09:00 10/17/16 08:59 09/22/16 09:25 600 MG Oxycodone HCl (Roxicodone Immediate Rel Tab) 20 mg Q6H PRN PO 09/17/16 03:00 10/01/16 02:59 09/22/16 10:18 20 MG Hydromorphone HCl (Dilaudid Inj) 1 mg Q3H PRN IV 09/17/16 03:00 10/01/16 02:59 09/22/16 04:05 1 MG Oxycodone HCl 20 mg 20 mg Q12 PO 09/17/16 09:00 10/01/16 08:59 09/22/16 09:25 20 MG Piperacillin Sod/ Tazobactam Sod/ Dextrose (Zosyn Iv/D5 100ml) 115 ml @ 28 mls/hr Q8H IV 09/17/16 04:00 09/27/16 03:59 09/22/16 05:37 28 MLS/HR Ondansetron HCl (Zofran Inj) 4 mg Q6H PRN IV 09/17/16 03:45 10/17/16 03:44 09/22/16 04:05 4 MG Piperacillin Sod/ Tazobactam Sod (Consult) 1 ea UD PRN N/A 09/17/16 04:30 10/17/16 04:29 Heparin Sodium (Porcine) (Heparin 10 Unit/ ml 5 ml Flush) 5 ml PRN PRN FLUSH 09/18/16 00:45 10/18/16 00:44 09/22/16 05:31 5 ML Daptomycin 1 ea 1 ea UD PRN N/A 09/18/16 10:15 10/18/16 10:14 Daptomycin/Sodium Chloride (Cubicin IV/Nss 50ml) 61.7 ml @ 120 mls/hr DAILY@0030 IV 09/19/16 00:30 10/01/16 00:29 09/22/16 00:52 120 MLS/HR Diphenhydramine HCl 25 mg 25 mg TID PRN IV 09/18/16 12:00 10/18/16 11:59 09/22/16 04:05 25 MG Caspofungin/ Sodium Chloride (Cancidas Inj/ Nss 250ml) 260 ml @ 250 mls/hr Q24H IV 09/21/16 20:00 10/21/16 19:59 09/21/16 21:01 250 MLS/HR Miscellaneous Information 1 ea 1 ea UD PRN N/A 09/20/16 19:30 10/20/16 19:29 Iron Sucrose/ Sodium Chloride (Venofer Inj/Nss 100ml) 105 ml @ 420 mls/hr DAILY@1000 IV 09/21/16 10:00 09/23/16 10:14 09/22/16 10:12 420 MLS/HR Last 24 Hours Test 3/30/17 16:02 09/22/16 05:30 Sodium Level 144 mmol/L 143 mmol/L Potassium Level 3.9 mmol/L 3.3 mmol/L Chloride Level 110 mmol/L 107 mmol/L Carbon Dioxide Level 28 mmol/L 29 mmol/L Anion Gap 6.0 mmol/L 7.0 mmol/L Blood Urea Nitrogen 7 mg/dl 8 mg/dl Creatinine 2.20 mg/dl 1.90 mg/dl Est Creatinine Clear Calc Drug Dose 56.0 ml/min 64.8 ml/min Estimated GFR () 42.5 50.7 Estimated GFR (Non- 36.6 43.7 BUN/Creatinine Ratio 3.3 4.3 Random Glucose 93 mg/dl 119 mg/dl Calcium Level 7.8 mg/dl 7.9 mg/dl Ionized Calcium 1.16 mmol/l Phosphorus Level 3.3 mg/dl Magnesium Level 1.4 mg/dl 25-Hydroxy Vitamin D Total 12.2 ng/ml Parathyroid Hormone (Intact) 88.3 pg/mL White Blood Count 8.27 K/uL Red Blood Count 3.84 M/uL Hemoglobin 8.5 g/dL Hematocrit 27.4 % Mean Corpuscular Volume 71.4 fL Mean Corpuscular Hemoglobin 22.1 pg Mean Corpuscular Hemoglobin Concent 31.0 g/dl Platelet Count 247 K/uL Mean Platelet Volume 9.3 fL Neutrophils (%) (Auto) 55.3 % Lymphocytes (%) (Auto) 21.8 % Monocytes (%) (Auto) 7.5 % Eosinophils (%) (Auto) 14.1 % Basophils (%) (Auto) 0.8 % Neutrophils # (Auto) 4.57 K/uL Lymphocytes # (Auto) 1.80 K/uL Monocytes # (Auto) 0.62 K/uL Eosinophils # (Auto) 1.17 K/uL Basophils # (Auto) 0.07 K/uL RDW Standard Deviation 44.2 fL RDW Coefficient of Variation 16.9 % Immature Granulocyte % (Auto) 0.5 % Immature Granulocyte # (Auto) 0.04 K/uL Red Blood Cell Morphology Unremarkable Date/Time Source Procedure Growth Status 09/22/16 10:28 Blood Blood Culture Pending Karely Batch Assessment & Plan exr-qqs-armxcomx-atn-creatinine peaked at 4 and now down to 1.9 off fluids. hypokalemia-may be having electrolyte losses as kidneys try to reestablish concentration gradient. k low again today adn to redose 40 of kdur now. hypocalcemia-vitamin d is low and to start vitamin d 50k units daily for now. pth is appropriately elevated. calcium levels better yesterday. iron deficiency anemia-to give iv venofer to help with the iron deficiency. hg levels are trending up.
[2016-09-22] MEDS ORDERED: NURSING VERBAL MED ORDER ONE (12:00)
[2016-09-22] MEDS: ERGOCALCIFEROL 50,000 INTER.UNIT CAP PO SCH (12:00)
[2016-09-22 15:21] VITALS: BP 126/66; PULSE 64; TEMP 36.8; O2SAT 96
[2016-09-22] MEDS: LACTOBACILLUS ACIDOPHILUS (FLORANEX) TAB PO SCH (17:03)
--- NOTE | 2016-09-22 17:39 | Progress Note ---
Internal Med Progress Note Date of Service: Sep 22, 2016. Provider Documentation: SUBJECTIVE: ambulating in room' still has diarrhea afebrile pain seems same eating ok OBJECTIVE: Vital Signs-as noted below Exam: General-alert and oriented x 3 Not in distress ENT-normal hearing Neck-no neck masses Lungs-cta b/l no wheezing no crackles Heart-s1 and s2 heard regular rate and rhythm no murmurs' Abdomen-soft bowel sounds present non tender no distension Extremities-right shoulder and arm region erythematous and painful movements. Lower extremity edema improving Neuro-alert and awake moves extremities Lab data as noted below. ASSESSMENT & PLAN: 40 yoM with h/o sepsis 2/2 bacteremia and chronic shoulder infection on [employer] abx presents with fever. 1. Sepsis 2/2 bacteremia- VRE and polymicrobial and yeast not abhi from line culture Influenza a positive and on Tamiflu on iv daptomycin and zosyn and caspofungin Ortho and ID on board to continue current abx MRI seromas vs infection Ortho to make decision about I and D. hemodynamics stable plan to continue iv abx for now hemodynamics stable Plan is very upset for plans to remove his Patten catheter as he says his lines were taken multiple times and each time cath cultures were negative and he is left with lot of scar tissue to continue current abx duration of abx as per ID 2. Chronic R shoulder pain-worse in setting of recent infection. Pt reports recently being off narcotics but now is requiring SR/IR oxy. pain management consulted and appreciate inputs.To continue current pain regimen 3. Pruritus-generalized, patient states this is common for him when he takes IV abx. On IV Benadryl prn.No complaints today. 4. JACQUELINE-likely 2/2 sepsis--Worsening Cr Abx as per pharmacy Consulted nephrology and appreciate inputs will f/u labs. Continue iv fluids and abx. CR 1.9 today fluids stopped as per nephro will f/u labs Anemia' mostly aocd iron levels low Hemoccult negative hb 7.6 on 09/21/16 on iv venofer s/p one unit prbc transfused hb 8.5 today f/u labs. DVT PROPHYLAXIS scds DISPOSITION to be determined Vital Signs: Date Time Temp Pulse Resp B/P Pulse Ox O2 Delivery O2 Flow Rate FiO2 09/22/16 15:40 Room Air 09/22/16 15:21 36.8 64 15 126/66 96 Room Air 09/22/16 08:22 36.8 66 16 121/74 97 Room Air 09/22/16 08:00 Room Air 09/22/16 00:39 37.2 71 16 138/86 97 Room Air 09/22/16 00:00 97 Room Air 09/21/16 22:00 71 143/83 09/21/16 20:10 37.1 70 18 153/84 97 09/21/16 19:40 36.9 65 18 134/78 98 09/21/16 19:10 37.2 65 20 126/69 98 09/21/16 18:51 36.8 74 20 107/64 97 Lab Results: Results Past 24 Hours Test 09/22/16 05:30 Range/Units White Blood Count 8.27 4.8-10.8 K/uL Red Blood Count 3.84 4.7-6.1 M/uL Hemoglobin 8.5 14.0-18.0 g/dL Hematocrit 27.4 42-52 % Mean Corpuscular Volume 71.4 80-100 fL Mean Corpuscular Hemoglobin 22.1 25-34 pg Mean Corpuscular Hemoglobin Concent 31.0 32-36 g/dl Platelet Count 247 130-400 K/uL Mean Platelet Volume 9.3 7.4-10.4 fL Neutrophils (%) (Auto) 55.3 % Lymphocytes (%) (Auto) 21.8 % Monocytes (%) (Auto) 7.5 % Eosinophils (%) (Auto) 14.1 % Basophils (%) (Auto) 0.8 % Neutrophils # (Auto) 4.57 1.4-6.5 K/uL Lymphocytes # (Auto) 1.80 1.2-3.4 K/uL Monocytes # (Auto) 0.62 0.11-0.59 K/uL Eosinophils # (Auto) 1.17 0-0.5 K/uL Basophils # (Auto) 0.07 0-0.2 K/uL RDW Standard Deviation 44.2 36.4-46.3 fL RDW Coefficient of Variation 16.9 11.5-14.5 % Immature Granulocyte % (Auto) 0.5 % Immature Granulocyte # (Auto) 0.04 0.00-0.02 K/uL Red Blood Cell Morphology Unremarkable Sodium Level 143 136-145 mmol/L Potassium Level 3.3 3.5-5.1 mmol/L Chloride Level 107 98-107 mmol/L Carbon Dioxide Level 29 21-32 mmol/L Anion Gap 7.0 3-11 mmol/L Blood Urea Nitrogen 8 7-18 mg/dl Creatinine 1.90 0.60-1.40 mg/dl Est Creatinine Clear Calc Drug Dose 64.8 ml/min Estimated GFR () 50.7 Estimated GFR (Non- 43.7 BUN/Creatinine Ratio 4.3 10-20 Random Glucose 119 70-99 mg/dl Calcium Level 7.9 8.5-10.1 mg/dl Microbiology Results 09/22/16 Blood Culture, Received Pending
[2016-09-22 20:00] VITALS: O2SAT 98
[2016-09-22] MEDS: CASPOFUNGIN INJ 50 MG in SODIUM CHLORIDE 0.9% 250ML 250 ML IV SCH (20:27)
[2016-09-22 23:16] VITALS: BP 116/71; PULSE 84; TEMP 36.7; O2SAT 91
[2016-09-23] VITALS: O2SAT 98
[2016-09-23] MEDS: DAPTOMYCIN IV SCH (02:13)
[2016-09-23] MEDS: SODIUM CHLORIDE 0.9% IV SCH (02:13)
[2016-09-23] MEDS: HYDROmorphone INJ 1 MG/ML SYR IV PRN ×4 (04:13→20:38)
[2016-09-23] MEDS: PIPERACILL/TAZOBAC IV 3.375 GM in DEXTROSE 5% 100ML 100 ML IV SCH ×3 (05:33→22:58)
--- NOTE | 2016-09-23 07:24 | Nephrology Progress Note ---
Nephrology Progress Note Date of Service: Sep 23, 2016. Subjective 40 yo male with right upper extremity infection with redness and swelling and has proteus bacteremia. repeat culture was negative. clinically improving. had дмитрий which is resolving. Objective Date Time Temp Pulse Resp B/P Pulse Ox O2 Delivery O2 Flow Rate FiO2 09/23/16 00:00 98 Room Air 09/22/16 23:16 36.7 84 18 116/71 91 Room Air 09/22/16 20:00 98 Room Air 09/22/16 15:40 Room Air 09/22/16 15:21 36.8 64 15 126/66 96 Room Air 09/22/16 08:22 36.8 66 16 121/74 97 Room Air 09/22/16 08:00 Room Air Physical Exam: General-aaox3 Eyes-no scleral icterus ENT-mmm Neck-supple Lungs-cta Heart-rrr Abdomen-bs+ s/nt/nd Extremities-right upper extremity with mild redness-improving, no edema in legs Neuro-nonfocal Current Inpatient Medications Medications (Trade) Dose Ordered Sig/Diane Route Start Time Stop Time Status Last Admin Dose Admin Acetaminophen (Tylenol Tab) 650 mg Q4H PRN PO 09/17/16 02:30 10/17/16 02:29 09/17/16 23:31 650 MG Gabapentin (Neurontin Tab) 600 mg BID PO 09/17/16 09:00 10/17/16 08:59 09/22/16 22:15 600 MG Oxycodone HCl (Roxicodone Immediate Rel Tab) 20 mg Q6H PRN PO 09/17/16 03:00 10/01/16 02:59 09/22/16 16:09 20 MG Hydromorphone HCl (Dilaudid Inj) 1 mg Q3H PRN IV 09/17/16 03:00 10/01/16 02:59 09/23/16 04:13 1 MG Oxycodone HCl 20 mg 20 mg Q12 PO 09/17/16 09:00 10/01/16 08:59 09/22/16 20:37 20 MG Piperacillin Sod/ Tazobactam Sod/ Dextrose (Zosyn Iv/D5 100ml) 115 ml @ 28 mls/hr Q8H IV 09/17/16 04:00 09/27/16 03:59 09/23/16 05:33 28 MLS/HR Ondansetron HCl (Zofran Inj) 4 mg Q6H PRN IV 09/17/16 03:45 10/17/16 03:44 09/22/16 17:13 4 MG Piperacillin Sod/ Tazobactam Sod (Consult) 1 ea UD PRN N/A 09/17/16 04:30 10/17/16 04:29 Heparin Sodium (Porcine) (Heparin 10 Unit/ ml 5 ml Flush) 5 ml PRN PRN FLUSH 09/18/16 00:45 10/18/16 00:44 09/22/16 12:06 5 ML Daptomycin 1 ea 1 ea UD PRN N/A 09/18/16 10:15 10/18/16 10:14 Daptomycin/Sodium Chloride (Cubicin IV/Nss 50ml) 61.7 ml @ 120 mls/hr DAILY@0030 IV 09/19/16 00:30 10/01/16 00:29 09/23/16 02:13 120 MLS/HR Diphenhydramine HCl 25 mg 25 mg TID PRN IV 09/18/16 12:00 10/18/16 11:59 09/22/16 22:14 25 MG Caspofungin/ Sodium Chloride (Cancidas Inj/ Nss 250ml) 260 ml @ 250 mls/hr Q24H IV 09/21/16 20:00 10/21/16 19:59 09/22/16 20:27 250 MLS/HR Miscellaneous Information 1 ea 1 ea UD PRN N/A 09/20/16 19:30 10/20/16 19:29 Iron Sucrose/ Sodium Chloride (Venofer Inj/Nss 100ml) 105 ml @ 420 mls/hr DAILY@1000 IV 09/21/16 10:00 09/23/16 10:14 09/22/16 10:12 420 MLS/HR Ergocalciferol (Vitamin D Cap) 50,000 interunit DAILY PO 09/22/16 11:00 10/22/16 10:59 09/22/16 12:00 50,000 INTERUNIT Lactobacillus Acidophilus (Floranex Tab) 4 tab TIDM PO 09/22/16 17:00 10/22/16 16:59 09/22/16 17:03 4 TAB Last 24 Hours Test 09/23/16 07:00 Date/Time Source Procedure Growth Status 09/22/16 11:34 Blood Blood Culture Pending Received Assessment & Plan jch-izd-aeenrakp-atn-creatinine peaked at 4 and now down to 1.9 off fluids. repeat bmp pending for today. if slow to recover, may need to restart normal saline at 80cc/hr. hypokalemia-repleting prn. hypocalcemia-giving oral vitamin d-would switch to 5000 iu a day as outpt. giving iv calcium prn. iron deficiency anemia-on iv venofer to help with the iron deficiency. hg levels are trending up.
[2016-09-23 08:00] VITALS: O2SAT 98
[2016-09-23 08:22] VITALS: BP 116/71; PULSE 65; TEMP 36.8; O2SAT 95
[2016-09-23 09:11] LABS: CREATININE 1.6 mg/dl (0.60-1.40)
[2016-09-23] MEDS: IRON SUCROSE INJ 100 MG in SODIUM CHLORIDE 0.9% 100ML 100 ML IV SCH (09:17)
[2016-09-23] MEDS: GABAPENTIN 600 MG TAB PO SCH ×2 (09:22→21:16)
[2016-09-23] MEDS: LACTOBACILLUS ACIDOPHILUS (FLORANEX) TAB PO SCH ×3 (09:22→16:37)
[2016-09-23] MEDS: ERGOCALCIFEROL 50,000 INTER.UNIT CAP PO SCH (09:30)
[2016-09-23] MEDS: DiphenhydrAMINE HCL 50 MG/ML VIAL IV PRN ×2 (09:31→20:37)
[2016-09-23] MEDS: OXYCODONE HCL 20 MG TABCR (OXYCONTIN) PO SCH ×2 (09:41→20:37)
--- NOTE | 2016-09-23 10:26 | Orthopedic Progress Note ---
Orthopedic Progress Note Date of Service Sep 23, 2016. Subjective Additional Notes: Feeling about the same. No new complaints. Pain hasn't changed. Pt seems comfortable at rest. Objective ROM of shoulder limited due to pain. No changes in that aspect. Erythema seems to be less than when I last saw him. Still some over the old incision. No open sinus tracts. No drainage. Rash noted over the shoulder that goes around to the back. Pt states he's had some of that when he came in but is more noticeable now since erythema lessening. No changes with elbow/wrist/hand ROM. No change in sensation or motor fxn of the arm. Date Time Temp Pulse Resp B/P Pulse Ox O2 Delivery O2 Flow Rate FiO2 09/23/16 08:22 36.8 65 16 116/71 95 Room Air 09/23/16 00:00 98 Room Air 09/22/16 23:16 36.7 84 18 116/71 91 Room Air 09/22/16 20:00 98 Room Air 09/22/16 15:40 Room Air 09/22/16 15:21 36.8 64 15 126/66 96 Room Air Assessment & Plan Assessment: Chronic Pain Right Shoulder Multiple organism sepsis Plan: As per [facility] [place] Hospitalist Pain Management on board. Infectious Disease managing antibx There was question of Patten removal but still present. Pt was questioning whether he needed it removed since previous times revealed no organisms on the tip. As per Med/ID Team. MRI- Small fluid collections subcutaneous around scar,not clear if residual from prior I&D or if actually infected. Dr Byrd recommending rx nonop for now as previous I&D cultures revealed no organisms...if not making good progress consider repeat incision and drainage. Inhouse Planning Pain Management: Oxycontin, Dilaudid, Oxy IR
[2016-09-23 10:35] LABS: BUN/CREATININE RATIO 4.8 (10-20); CALCIUM 7.6 mg/dl (8.5-10.1); CREATININE 1.7 mg/dl (0.60-1.40); POTASSIUM 3.1 mmol/L (3.5-5.1)
[2016-09-23] MEDS ORDERED: CALCIUM GLUCONATE 10% 1,000 MG in SODIUM CHLORIDE 0.9% 50ML 50 ML IV ONE (14:00)
[2016-09-23] MEDS ORDERED: POTASSIUM CHLORIDE 10 MEQ TABCR PO ONE (15:00)
[2016-09-23] MEDS: SODIUM CHLORIDE 0.45% 1000ML 1,000 ML IV SCH (15:02)
[2016-09-23] MEDS: OXYCODONE HCL IR 5 MG TAB (IMMEDIATE RELEASE) PO PRN (15:19)
[2016-09-23 16:00] VITALS: O2SAT 97
--- NOTE | 2016-09-23 16:25 | Progress Note ---
Internal Med Progress Note Date of Service: Sep 23, 2016. Provider Documentation: SUBJECTIVE: pain is same diarrhea some what better no fevers no other complaints OBJECTIVE: Vital Signs-as noted below Exam: General-alert and oriented x 3 Not in distress ENT-normal hearing Neck-no neck masses Lungs-cta b/l no wheezing no crackles Heart-s1 and s2 heard regular rate and rhythm no murmurs' Abdomen-soft bowel sounds present non tender no distension Extremities-right shoulder and arm region erythematous and painful movements. Lower extremity edema improving Neuro-alert and awake moves extremities Lab data as noted below. ASSESSMENT & PLAN: 40 yoM with h/o sepsis 2/2 bacteremia and chronic shoulder infection on [employer] abx presents with fever. 1. Sepsis 2/2 bacteremia- VRE and polymicrobial and yeast not abhi from line culture Influenza a positive and on Tamiflu on iv daptomycin and zosyn and caspofungin Ortho and ID on board to continue current abx MRI seromas vs infection Ortho to make decision about I and D. hemodynamics stable plan to continue iv abx for now Plan is very upset for plans to remove his Patten catheter as he says his lines were taken multiple times and each time cath cultures were negative and he is left with lot of scar tissue duration of abx as per ID stable 2. Chronic R shoulder pain-worse in setting of recent infection. Pt reports recently being off narcotics but now is requiring SR/IR oxy. pain management consulted and appreciate inputs.To continue current pain regimen 3. Pruritus-generalized, patient states this is common for him when he takes IV abx. On IV Benadryl prn.No complaints today. 4. JACQUELINE-likely 2/2 sepsis--Worsening Cr Abx as per pharmacy Consulted nephrology and appreciate inputs will f/u labs. Continue iv fluids and abx. CR 1.7 today fluids as per nephro will f/u labs Anemia' mostly aocd iron levels low Hemoccult negative hb 7.6 on 09/21/16 on iv venofer s/p one unit prbc transfused hb 8.5 f/u labs. DVT PROPHYLAXIS scds DISPOSITION to be determined Vital Signs: Date Time Temp Pulse Resp B/P Pulse Ox O2 Delivery O2 Flow Rate FiO2 09/23/16 08:22 36.8 65 16 116/71 95 Room Air 09/23/16 08:00 98 Room Air 09/23/16 00:00 98 Room Air 09/22/16 23:16 36.7 84 18 116/71 91 Room Air 09/22/16 20:00 98 Room Air Lab Results: Results Past 24 Hours Test 09/23/16 08:10 09/23/16 09:53 Range/Units Creatinine 1.60 1.70 0.60-1.40 mg/dl Est Creatinine Clear Calc Drug Dose 77.0 72.5 ml/min Estimated GFR () 62.4 58.0 Estimated GFR (Non- 53.9 50.0 Sodium Level 146 136-145 mmol/L Potassium Level 3.1 3.5-5.1 mmol/L Chloride Level 109 98-107 mmol/L Carbon Dioxide Level 30 21-32 mmol/L Anion Gap 7.0 3-11 mmol/L Blood Urea Nitrogen 8 7-18 mg/dl BUN/Creatinine Ratio 4.8 10-20 Random Glucose 117 70-99 mg/dl Calcium Level 7.6 8.5-10.1 mg/dl
[2016-09-23 16:39] VITALS: BP 128/77; PULSE 79; TEMP 36.8; O2SAT 93
[2016-09-23] MEDS: ONDANSETRON INJ 2 MG/ML 2 ML VIAL IV PRN (20:37)
[2016-09-23] MEDS: CASPOFUNGIN INJ 50 MG in SODIUM CHLORIDE 0.9% 250ML 250 ML IV SCH (21:17)
[2016-09-24 00:17] VITALS: BP 123/63; PULSE 86; TEMP 36.8; O2SAT 94
[2016-09-24] MEDS: SODIUM CHLORIDE 0.45% 1000ML 1,000 ML IV SCH ×3 (00:35→20:00)
[2016-09-24] MEDS: SODIUM CHLORIDE 0.9% IV SCH (00:35)
[2016-09-24] MEDS: DAPTOMYCIN IV SCH (00:35)
[2016-09-24] MEDS: HYDROmorphone INJ 1 MG/ML SYR IV PRN ×5 (00:36→22:00)
[2016-09-24] MEDS: PIPERACILL/TAZOBAC IV 3.375 GM in DEXTROSE 5% 100ML 100 ML IV SCH ×3 (05:59→21:59)
[2016-09-24 06:13] LABS: BASO % 0.6 %; BASO ABS # 0.06 K/uL (0-0.2); EOS % 10.3 %; HEMATOCRIT 29.9 % (42-52); IG% 0.8 %; LYMPH % 29.4 %; LYMPH ABS # 2.93 K/uL (1.2-3.4); MEAN CELL VOLUME 72.2 fL (80-100); MEAN CORPUSCULAR HEMOGLOBIN 22.2 pg (25-34); MEAN CORPUSCULAR HGB CONC 30.8 g/dl (32-36); MONO % 4.5 %; NEUT % 54.4 %; PLATELET COUNT 323 K/uL (130-400); RED BLOOD COUNT 4.14 M/uL (4.7-6.1); WHITE BLOOD COUNT 9.95 K/uL (4.8-10.8)
[2016-09-24 06:37] LABS: ANISOCYTOSIS PRESENT; COMPLETE YES; OVALOCYTES 1+
[2016-09-24 06:50] LABS: BUN/CREATININE RATIO 6.1 (10-20); CALCIUM 7.6 mg/dl (8.5-10.1); CREATININE 1.6 mg/dl (0.60-1.40); MAGNESIUM 1.3 mg/dl (1.8-2.4); POTASSIUM 3.1 mmol/L (3.5-5.1)
[2016-09-24] MEDS: MAGNESIUM SULFATE 1GM / D5W 1 GM in PREMIXED IN D5W 100 ML IV SCH ×2 (07:58→09:01)
[2016-09-24 08:00] VITALS: O2SAT 94
[2016-09-24] MEDS: LACTOBACILLUS ACIDOPHILUS (FLORANEX) TAB PO SCH ×3 (08:00→17:18)
[2016-09-24] MEDS: ERGOCALCIFEROL 50,000 INTER.UNIT CAP PO SCH (08:01)
[2016-09-24] MEDS: GABAPENTIN 600 MG TAB PO SCH ×2 (08:01→20:01)
[2016-09-24 08:07] VITALS: BP 119/69; PULSE 72; TEMP 36.7; O2SAT 97
[2016-09-24] MEDS: OXYCODONE HCL 20 MG TABCR (OXYCONTIN) PO SCH ×2 (08:31→20:47)
[2016-09-24] MEDS: MAGNESIUM CHLORIDE 64MG DELAYED REL TAB PO SCH ×2 (08:59→20:02)
[2016-09-24] MEDS ORDERED: CALCIUM GLUCONATE 10% 2,000 MG in SODIUM CHLORIDE 0.9% 50ML 50 ML IV ONE (11:00)
[2016-09-24] MEDS: ONDANSETRON INJ 2 MG/ML 2 ML VIAL IV PRN (14:13)
[2016-09-24] MEDS ORDERED: POTASSIUM CHLORIDE 20 MEQ TABCR PO ONE (14:30)
--- NOTE | 2016-09-24 14:52 | Orthopedic Progress Note ---
Orthopedic Progress Note Date of Service Sep 24, 2016. Subjective Denies: SOB, calf pain, chest pain, light headedness, nausea / vomiting Additional Notes: Right shoulder pain controlled. No worse than yesterday. Essentially unchanged. No fevers/chills. No drainage from shoulder. Objective calves soft nontender, N/V intact, capillary refill less than 2 sec., A&O x3, toes mobile R shoulder incisions sealed and benign. No d/c or drainage. Persistent mild rash right shoulder region and upper arm. DNVSI B UE. Date Time Temp Pulse Resp B/P Pulse Ox O2 Delivery O2 Flow Rate FiO2 09/24/16 08:07 36.7 72 18 119/69 97 Room Air 09/24/16 08:00 94 Room Air 09/24/16 00:17 36.8 86 18 123/63 94 Room Air 09/24/16 00:00 Room Air 09/23/16 20:00 Room Air 09/23/16 16:39 36.8 79 18 128/77 93 Room Air 09/23/16 16:00 97 Room Air Laboratory Results 24 Hours: Test 09/24/16 05:30 White Blood Count 9.95 K/uL Red Blood Count 4.14 M/uL Hemoglobin 9.2 g/dL Hematocrit 29.9 % Mean Corpuscular Volume 72.2 fL Mean Corpuscular Hemoglobin 22.2 pg Mean Corpuscular Hemoglobin Concent 30.8 g/dl Platelet Count 323 K/uL Mean Platelet Volume 10.0 fL Neutrophils (%) (Auto) 54.4 % Lymphocytes (%) (Auto) 29.4 % Monocytes (%) (Auto) 4.5 % Eosinophils (%) (Auto) 10.3 % Basophils (%) (Auto) 0.6 % Neutrophils # (Auto) 5.41 K/uL Lymphocytes # (Auto) 2.93 K/uL Monocytes # (Auto) 0.45 K/uL Eosinophils # (Auto) 1.02 K/uL Basophils # (Auto) 0.06 K/uL Assessment & Plan Assessment: Chronic Pain Right Shoulder Multiple organism sepsis Mild rash R UE-unchanged Plan: As per [facility] [place] Hospitalist Pain Management on board. Infectious Disease managing antibx There was question of Patten removal but still present. Pt was questioning whether he needed it removed since previous times revealed no organisms on the tip. As per Med/ID Team. MRI- Small fluid collections subcutaneous around scar,not clear if residual from prior I&D or if actually infected. Dr Byrd recommending rx nonop for now as previous I&D cultures revealed no organisms...if not making good progress consider repeat incision and drainage. Plan unchanged at this time. Inhouse Planning Pain Management: Oxycontin, Dilaudid, Oxy IR
[2016-09-24 16:34] VITALS: BP 126/73; PULSE 80; TEMP 36.8; O2SAT 94
--- NOTE | 2016-09-24 16:34 | Progress Note ---
Internal Med Progress Note Date of Service: Sep 24, 2016. Provider Documentation: SUBJECTIVE: pain is same still has diarrhea afebrile no other complaints OBJECTIVE: Vital Signs-as noted below Exam: General-alert and oriented x 3 Not in distress ENT-normal hearing Neck-no neck masses Lungs-cta b/l no wheezing no crackles Heart-s1 and s2 heard regular rate and rhythm no murmurs' Abdomen-soft bowel sounds present non tender no distension Extremities-right shoulder and arm region erythematous and painful movements. Lower extremity edema improving Neuro-alert and awake moves extremities Lab data as noted below. ASSESSMENT & PLAN: 40 yoM with h/o sepsis 2/2 bacteremia and chronic shoulder infection on long-term abx presents with fever. 1. Sepsis 2/2 bacteremia- VRE and polymicrobial and yeast not abhi from line culture Influenza a positive and completed Tamiflu on iv daptomycin and zosyn and caspofungin Ortho and ID on board to continue current abx MRI seromas vs infection Ortho to make decision about I and D. hemodynamics stable plan to continue iv abx for now Plan is very upset for plans to remove his Patten catheter as he says his lines were taken multiple times and each time cath cultures were negative and he is left with lot of scar tissue duration of abx as per ID stable if no surgery planned will plan to d/c on iv abx as pe ID recommendations soon 2. Chronic R shoulder pain-worse in setting of recent infection. Pt reports recently being off narcotics but now is requiring SR/IR oxy. pain management consulted and appreciate inputs.To continue current pain regimen 3. Pruritus-generalized, patient states this is common for him when he takes IV abx. On IV Benadryl prn.No complaints today. 4. JACQUELINE-likely 2/2 sepsis--Worsening Cr Abx as per pharmacy Consulted nephrology and appreciate inputs will f/u labs. Continue iv fluids and abx. CR 1.6 today fluids as per nephro will f/u labs Anemia' mostly aocd iron levels low Hemoccult negative hb 7.6 on 09/21/16 on iv venofer s/p one unit prbc transfused hb 9.2 f/u labs. DVT PROPHYLAXIS scds DISPOSITION to be determined Vital Signs: Date Time Temp Pulse Resp B/P Pulse Ox O2 Delivery O2 Flow Rate FiO2 09/24/16 08:07 36.7 72 18 119/69 97 Room Air 09/24/16 08:00 94 Room Air 09/24/16 00:17 36.8 86 18 123/63 94 Room Air 09/24/16 00:00 Room Air 09/23/16 20:00 Room Air 09/23/16 16:39 36.8 79 18 128/77 93 Room Air Lab Results: Results Past 24 Hours Test 09/24/16 05:30 Range/Units White Blood Count 9.95 4.8-10.8 K/uL Red Blood Count 4.14 4.7-6.1 M/uL Hemoglobin 9.2 14.0-18.0 g/dL Hematocrit 29.9 42-52 % Mean Corpuscular Volume 72.2 80-100 fL Mean Corpuscular Hemoglobin 22.2 25-34 pg Mean Corpuscular Hemoglobin Concent 30.8 32-36 g/dl Platelet Count 323 130-400 K/uL Mean Platelet Volume 10.0 7.4-10.4 fL Neutrophils (%) (Auto) 54.4 % Lymphocytes (%) (Auto) 29.4 % Monocytes (%) (Auto) 4.5 % Eosinophils (%) (Auto) 10.3 % Basophils (%) (Auto) 0.6 % Neutrophils # (Auto) 5.41 1.4-6.5 K/uL Lymphocytes # (Auto) 2.93 1.2-3.4 K/uL Monocytes # (Auto) 0.45 0.11-0.59 K/uL Eosinophils # (Auto) 1.02 0-0.5 K/uL Basophils # (Auto) 0.06 0-0.2 K/uL RDW Standard Deviation 45.4 36.4-46.3 fL RDW Coefficient of Variation 17.5 11.5-14.5 % Immature Granulocyte % (Auto) 0.8 % Immature Granulocyte # (Auto) 0.08 0.00-0.02 K/uL Anisocytosis PRESENT Ovalocytes 1+ Sodium Level 144 136-145 mmol/L Potassium Level 3.1 3.5-5.1 mmol/L Chloride Level 105 98-107 mmol/L Carbon Dioxide Level 31 21-32 mmol/L Anion Gap 8.0 3-11 mmol/L Blood Urea Nitrogen 10 7-18 mg/dl Creatinine 1.60 0.60-1.40 mg/dl Est Creatinine Clear Calc Drug Dose 77.0 ml/min Estimated GFR () 62.4 Estimated GFR (Non- 53.9 BUN/Creatinine Ratio 6.1 10-20 Random Glucose 146 70-99 mg/dl Calcium Level 7.6 8.5-10.1 mg/dl Ionized Calcium 1.04 1.12-1.32 mmol/l Magnesium Level 1.3 1.8-2.4 mg/dl
[2016-09-24 17:39] VITALS: O2SAT 97
[2016-09-24] MEDS: CASPOFUNGIN INJ 50 MG in SODIUM CHLORIDE 0.9% 250ML 250 ML IV SCH (20:00)
[2016-09-24] MEDS: DiphenhydrAMINE HCL 50 MG/ML VIAL IV PRN (21:59)
[2016-09-24 23:52] VITALS: BP 126/71; PULSE 65; TEMP 36.8; O2SAT 94
[2016-09-25] MEDS: DAPTOMYCIN IV SCH (00:42)
[2016-09-25] MEDS: SODIUM CHLORIDE 0.9% IV SCH (00:42)
[2016-09-25] MEDS: ONDANSETRON INJ 2 MG/ML 2 ML VIAL IV PRN (01:46)
[2016-09-25] MEDS: HYDROmorphone INJ 1 MG/ML SYR IV PRN ×6 (01:47→23:06)
[2016-09-25] MEDS: PIPERACILL/TAZOBAC IV 3.375 GM in DEXTROSE 5% 100ML 100 ML IV SCH ×3 (05:58→21:30)
[2016-09-25] MEDS: SODIUM CHLORIDE 0.45% 1000ML 1,000 ML IV SCH ×2 (05:58→15:39)
[2016-09-25 06:53] LABS: BASO % 0.8 %; BASO ABS # 0.07 K/uL (0-0.2); HEMATOCRIT 28.1 % (42-52); IG% 0.7 %; LYMPH % 30.2 %; LYMPH ABS # 2.75 K/uL (1.2-3.4); MEAN CELL VOLUME 71.1 fL (80-100); MEAN PLATELET VOLUME 9.8 fL (7.4-10.4); MONO % 6.5 %; NEUT % 54.8 %; PLATELET COUNT 331 K/uL (130-400); RED BLOOD COUNT 3.95 M/uL (4.7-6.1); WHITE BLOOD COUNT 9.11 K/uL (4.8-10.8)
[2016-09-25 07:25] LABS: BUN/CREATININE RATIO 6.9 (10-20); CALCIUM 7.8 mg/dl (8.5-10.1); CREATININE 1.4 mg/dl (0.60-1.40)
[2016-09-25 07:28] LABS: COMPLETE YES; MICROCYTOSIS PRESENT; OVALOCYTES 1+
[2016-09-25 07:47] VITALS: BP 100/61; PULSE 65; TEMP 36.7; O2SAT 92
[2016-09-25 08:00] VITALS: O2SAT 96
[2016-09-25] MEDS: OXYCODONE HCL 20 MG TABCR (OXYCONTIN) PO SCH ×2 (08:42→21:30)
[2016-09-25] MEDS: LACTOBACILLUS ACIDOPHILUS (FLORANEX) TAB PO SCH ×3 (08:42→15:40)
[2016-09-25] MEDS: GABAPENTIN 600 MG TAB PO SCH ×2 (08:43→19:37)
[2016-09-25] MEDS: ERGOCALCIFEROL 50,000 INTER.UNIT CAP PO SCH (08:43)
[2016-09-25] MEDS: MAGNESIUM CHLORIDE 64MG DELAYED REL TAB PO SCH ×2 (08:46→19:37)
[2016-09-25] MEDS: DiphenhydrAMINE HCL 50 MG/ML VIAL IV PRN ×2 (10:46→23:06)
[2016-09-25] MEDS: POTASSIUM CHLR 10 MEQ / WTR 10 MEQ in PREMIXED WATER 100 ML IV SCH ×2 (13:20→15:38)
[2016-09-25] MEDS ORDERED: POTASSIUM CHLORIDE 20 MEQ TABCR PO ONE (14:00)
[2016-09-25 16:00] VITALS: O2SAT 94
[2016-09-25 16:33] VITALS: BP 133/76; PULSE 79; TEMP 36.6; O2SAT 98
--- NOTE | 2016-09-25 16:53 | Progress Note ---
Internal Med Progress Note Date of Service: Sep 25, 2016. Provider Documentation: SUBJECTIVE: resting comfortably pain is same afebrile has diarrhea OBJECTIVE: Vital Signs-as noted below Exam: General-alert and oriented x 3 Not in distress ENT-normal hearing Neck-no neck masses Lungs-cta b/l no wheezing no crackles Heart-s1 and s2 heard regular rate and rhythm no murmurs' Abdomen-soft bowel sounds present non tender no distension Extremities-right shoulder and arm region erythematous and painful movements- improving. Lower extremity edema improving Neuro-alert and awake moves extremities Lab data as noted below. ASSESSMENT & PLAN: 40 yoM with h/o sepsis 2/2 bacteremia and chronic shoulder infection on [employer] abx presents with fever. 1. Sepsis 2/2 bacteremia- VRE and polymicrobial and yeast not abhi from line culture Influenza a positive and completed Tamiflu on iv daptomycin and zosyn and caspofungin Ortho and ID on board to continue current abx MRI seromas vs infection Ortho to make decision about I and D. hemodynamics stable plan to continue iv abx for now Plan is very upset for plans to remove his Patten catheter as he says his lines were taken multiple times and each time cath cultures were negative and he is left with lot of scar tissue duration of abx as per ID stable if no surgery planned will plan to d/c on iv abx as per ID recommendations soon await ortho decesion about any plan for surgery or just abx 2. Chronic R shoulder pain-worse in setting of recent infection. Pt reports recently being off narcotics but now is requiring SR/IR oxy. pain management consulted and appreciate inputs.To continue current pain regimen 3. Pruritus-generalized, patient states this is common for him when he takes IV abx. On IV Benadryl prn.No complaints today. 4. JACQUELINE-likely 2/2 sepsis--Worsening Cr Abx as per pharmacy Consulted nephrology and appreciate inputs will f/u labs. Continue iv fluids and abx. CR 1.4 today fluids as per nephro may stop fluids in am will f/u labs Anemia' mostly aocd iron levels low Hemoccult negative hb 7.6 on 09/21/16 on iv venofer s/p one unit prbc transfused hb 8.7 today f/u labs. DVT PROPHYLAXIS scds DISPOSITION to be determined Vital Signs: Date Time Temp Pulse Resp B/P Pulse Ox O2 Delivery O2 Flow Rate FiO2 09/25/16 16:33 36.6 79 16 133/76 98 Room Air 09/25/16 16:00 94 Room Air 09/25/16 08:00 96 Room Air 09/25/16 07:47 36.7 65 18 100/61 92 Room Air 09/25/16 00:00 Room Air 09/24/16 23:52 36.8 65 18 126/71 94 Room Air 09/24/16 20:00 Room Air 09/24/16 17:39 97 Room Air Lab Results: Results Past 24 Hours Test 09/25/16 06:05 Range/Units White Blood Count 9.11 4.8-10.8 K/uL Red Blood Count 3.95 4.7-6.1 M/uL Hemoglobin 8.7 14.0-18.0 g/dL Hematocrit 28.1 42-52 % Mean Corpuscular Volume 71.1 80-100 fL Mean Corpuscular Hemoglobin 22.0 25-34 pg Mean Corpuscular Hemoglobin Concent 31.0 32-36 g/dl Platelet Count 331 130-400 K/uL Mean Platelet Volume 9.8 7.4-10.4 fL Neutrophils (%) (Auto) 54.8 % Lymphocytes (%) (Auto) 30.2 % Monocytes (%) (Auto) 6.5 % Eosinophils (%) (Auto) 7.0 % Basophils (%) (Auto) 0.8 % Neutrophils # (Auto) 5.00 1.4-6.5 K/uL Lymphocytes # (Auto) 2.75 1.2-3.4 K/uL Monocytes # (Auto) 0.59 0.11-0.59 K/uL Eosinophils # (Auto) 0.64 0-0.5 K/uL Basophils # (Auto) 0.07 0-0.2 K/uL RDW Standard Deviation 45.3 36.4-46.3 fL RDW Coefficient of Variation 17.7 11.5-14.5 % Immature Granulocyte % (Auto) 0.7 % Immature Granulocyte # (Auto) 0.06 0.00-0.02 K/uL Microcytosis PRESENT Ovalocytes 1+ Sodium Level 144 136-145 mmol/L Potassium Level 3.0 3.5-5.1 mmol/L Chloride Level 107 98-107 mmol/L Carbon Dioxide Level 31 21-32 mmol/L Anion Gap 6.0 3-11 mmol/L Blood Urea Nitrogen 10 7-18 mg/dl Creatinine 1.40 0.60-1.40 mg/dl Est Creatinine Clear Calc Drug Dose 88.0 ml/min Estimated GFR () 73.4 Estimated GFR (Non- 63.3 BUN/Creatinine Ratio 6.9 10-20 Random Glucose 84 70-99 mg/dl Calcium Level 7.8 8.5-10.1 mg/dl
[2016-09-25] MEDS: CASPOFUNGIN INJ 50 MG in SODIUM CHLORIDE 0.9% 250ML 250 ML IV SCH (19:39)
[2016-09-26] VITALS: BP 142/81; PULSE 82; TEMP 36.9; O2SAT 95
[2016-09-26] MEDS: SODIUM CHLORIDE 0.9% IV SCH (00:49)
[2016-09-26] MEDS: DAPTOMYCIN IV SCH (00:49)
[2016-09-26] MEDS: SODIUM CHLORIDE 0.45% 1000ML 1,000 ML IV SCH ×3 (01:56→21:33)
[2016-09-26] MEDS: PIPERACILL/TAZOBAC IV 3.375 GM in DEXTROSE 5% 100ML 100 ML IV SCH ×3 (05:30→21:32)
[2016-09-26] MEDS: HYDROmorphone INJ 1 MG/ML SYR IV PRN ×5 (05:30→20:16)
[2016-09-26 05:43] LABS: BASO % 0.6 %; BASO ABS # 0.06 K/uL (0-0.2); COMPLETE YES; EOS % 6.1 %; HEMATOCRIT 30.6 % (42-52); IG% 0.6 %; LYMPH % 33.1 %; LYMPH ABS # 3.06 K/uL (1.2-3.4); MEAN CELL VOLUME 72.2 fL (80-100); MEAN CORPUSCULAR HEMOGLOBIN 22.4 pg (25-34); MEAN PLATELET VOLUME 10.2 fL (7.4-10.4); MONO % 5.9 %; NEUT % 53.7 %; PLATELET COUNT 352 K/uL (130-400); RED BLOOD COUNT 4.24 M/uL (4.7-6.1); WHITE BLOOD COUNT 9.25 K/uL (4.8-10.8)
[2016-09-26 06:11] LABS: BUN/CREATININE RATIO 7.9 (10-20); CALCIUM 7.9 mg/dl (8.5-10.1); CREATININE 1.4 mg/dl (0.60-1.40); POTASSIUM 3.4 mmol/L (3.5-5.1)
[2016-09-26 07:02] VITALS: BP 106/72; PULSE 64; TEMP 36.6; O2SAT 94
[2016-09-26] MEDS: MAGNESIUM CHLORIDE 64MG DELAYED REL TAB PO SCH ×2 (07:51→20:07)
[2016-09-26] MEDS: OXYCODONE HCL 20 MG TABCR (OXYCONTIN) PO SCH ×2 (07:51→21:33)
[2016-09-26] MEDS: GABAPENTIN 600 MG TAB PO SCH ×2 (07:51→20:07)
[2016-09-26] MEDS: LACTOBACILLUS ACIDOPHILUS (FLORANEX) TAB PO SCH ×3 (07:52→16:39)
[2016-09-26] MEDS: ERGOCALCIFEROL 50,000 INTER.UNIT CAP PO SCH (07:52)
[2016-09-26] MEDS: DiphenhydrAMINE HCL 50 MG/ML VIAL IV PRN ×2 (10:41→20:15)
[2016-09-26] MEDS ORDERED: POTASSIUM CHLORIDE 10 MEQ TABCR PO STA (11:41)
--- NOTE | 2016-09-26 14:57 | Progress Note ---
Internal Med Progress Note Date of Service: Sep 26, 2016. Provider Documentation: SUBJECTIVE: The Patient was seen and examined Complains of right shoulder pain No other symptoms OBJECTIVE: Vital Signs-as noted below Exam: General-no distress at rest Eyes-normal ENT-normal Neck-supple Lungs-clear to ausucltate bilaterally Heart-Regular,no murmur appreciated Abdomen-benign,no masses,bowel sound present Extremities-No edema Any movement of the right Shoulder ia painful Neuro-AAox3 Lab data as noted below. ASSESSMENT & PLAN: Sepsis with bacteremia- VRE and polymicrobial and yeast not abhi form blood cultures taken from the line Influenza a positive and completed Tamiflu Has been on iv daptomycin and Zosyn and caspofungin Appreciate Ortho and ID input MRI seromas vs infection Ortho is still not sure about exploring the wound Chronic R shoulder pain-worse in setting of recent infection. Pt reports recently being off narcotics but now is requiring SR/IR oxy. pain management consulted and appreciate inputs. To continue current pain regimen Pruritus-generalized, patient states this is common for him when he takes IV abx. On IV Benadryl prn.No complaints today. JACQUELINE-likely 2/2 sepsis--Worsening Cr Abx as per pharmacy Consulted nephrology and appreciate inputs Renal function normalized Anemia' Likely due to Chronic disease complicated by sepsis Received 3 units of PRBC so far Hb stable at >9 DVT PROPHYLAXIS scds DISPOSITION to be determined Vital Signs: Date Time Temp Pulse Resp B/P Pulse Ox O2 Delivery O2 Flow Rate FiO2 09/26/16 08:00 Room Air 09/26/16 07:02 36.6 64 16 106/72 94 Room Air 09/26/16 01:29 Room Air 09/26/16 00:00 36.9 82 16 142/81 95 Room Air 09/25/16 19:30 Room Air 09/25/16 16:33 36.6 79 16 133/76 98 Room Air 09/25/16 16:00 94 Room Air Lab Results: Results Past 24 Hours Test 09/26/16 05:25 Range/Units White Blood Count 9.25 4.8-10.8 K/uL Red Blood Count 4.24 4.7-6.1 M/uL Hemoglobin 9.5 14.0-18.0 g/dL Hematocrit 30.6 42-52 % Mean Corpuscular Volume 72.2 80-100 fL Mean Corpuscular Hemoglobin 22.4 25-34 pg Mean Corpuscular Hemoglobin Concent 31.0 32-36 g/dl Platelet Count 352 130-400 K/uL Mean Platelet Volume 10.2 7.4-10.4 fL Neutrophils (%) (Auto) 53.7 % Lymphocytes (%) (Auto) 33.1 % Monocytes (%) (Auto) 5.9 % Eosinophils (%) (Auto) 6.1 % Basophils (%) (Auto) 0.6 % Neutrophils # (Auto) 4.96 1.4-6.5 K/uL Lymphocytes # (Auto) 3.06 1.2-3.4 K/uL Monocytes # (Auto) 0.55 0.11-0.59 K/uL Eosinophils # (Auto) 0.56 0-0.5 K/uL Basophils # (Auto) 0.06 0-0.2 K/uL RDW Standard Deviation 46.5 36.4-46.3 fL RDW Coefficient of Variation 18.5 11.5-14.5 % Immature Granulocyte % (Auto) 0.6 % Immature Granulocyte # (Auto) 0.06 0.00-0.02 K/uL Sodium Level 142 136-145 mmol/L Potassium Level 3.4 3.5-5.1 mmol/L Chloride Level 105 98-107 mmol/L Carbon Dioxide Level 30 21-32 mmol/L Anion Gap 7.0 3-11 mmol/L Blood Urea Nitrogen 11 7-18 mg/dl Creatinine 1.40 0.60-1.40 mg/dl Est Creatinine Clear Calc Drug Dose 88.0 ml/min Estimated GFR () 73.4 Estimated GFR (Non- 63.3 BUN/Creatinine Ratio 7.9 10-20 Random Glucose 84 70-99 mg/dl Calcium Level 7.9 8.5-10.1 mg/dl Total Creatine Kinase 28 39-308 U/L
[2016-09-26 15:22] VITALS: BP 132/82; PULSE 75; TEMP 36.8; O2SAT 97
--- NOTE | 2016-09-26 17:00 | Orthopedic Progress Note ---
Orthopedic Progress Note Date of Service Sep 26, 2016. Subjective Additional Notes: No new complaints. Arm about the same as far as pain goes. Objective Less erythema noted. Rash present. NV status hasn't changed. Limited ROM of shoulder with pain. Date Time Temp Pulse Resp B/P Pulse Ox O2 Delivery O2 Flow Rate FiO2 09/26/16 15:22 36.8 75 16 132/82 97 Room Air 09/26/16 08:00 Room Air 09/26/16 07:02 36.6 64 16 106/72 94 Room Air 09/26/16 01:29 Room Air 09/26/16 00:00 36.9 82 16 142/81 95 Room Air 09/25/16 19:30 Room Air Laboratory Results 24 Hours: Test 09/26/16 05:25 White Blood Count 9.25 K/uL Red Blood Count 4.24 M/uL Hemoglobin 9.5 g/dL Hematocrit 30.6 % Mean Corpuscular Volume 72.2 fL Mean Corpuscular Hemoglobin 22.4 pg Mean Corpuscular Hemoglobin Concent 31.0 g/dl Platelet Count 352 K/uL Mean Platelet Volume 10.2 fL Neutrophils (%) (Auto) 53.7 % Lymphocytes (%) (Auto) 33.1 % Monocytes (%) (Auto) 5.9 % Eosinophils (%) (Auto) 6.1 % Basophils (%) (Auto) 0.6 % Neutrophils # (Auto) 4.96 K/uL Lymphocytes # (Auto) 3.06 K/uL Monocytes # (Auto) 0.55 K/uL Eosinophils # (Auto) 0.56 K/uL Basophils # (Auto) 0.06 K/uL Assessment & Plan Assessment: Chronic Pain Right Shoulder Multiple organism sepsis Mild rash R UE Plan: [place] [facility] [place] Pain Management on board. Infectious Disease managing antibx Dr Byrd recommending rx nonop for now as previous I&D cultures revealed no organisms...if not making good progress consider repeat incision and drainage. Plan unchanged at this time. ORTHO WILL SIGN OFF FOR NOW. Inhouse Planning Pain Management: Oxycontin, Dilaudid, Oxy IR
--- NOTE | 2016-09-26 19:35 | Infectious Disease Progress Nt ---
Progress Note Date of Service Sep 26, 2016. Subjective Pt evaluation today including: chart review, lab review, review of studies, conversation w/ salon sales consultant, review of inpatient medication list Right shoulder pain unchanged. No fever. Tolerating Abx. Medications Current Inpatient Medications Medications (Trade) Dose Ordered Sig/Diane Route Start Time Stop Time Status Last Admin Dose Admin Acetaminophen (Tylenol Tab) 650 mg Q4H PRN PO 09/17/16 02:30 10/17/16 02:29 09/17/16 23:31 650 MG Gabapentin (Neurontin Tab) 600 mg BID PO 09/17/16 09:00 10/17/16 08:59 09/26/16 07:51 600 MG Oxycodone HCl (Roxicodone Immediate Rel Tab) 20 mg Q6H PRN PO 09/17/16 03:00 10/01/16 02:59 09/23/16 15:19 20 MG Hydromorphone HCl (Dilaudid Inj) 1 mg Q3H PRN IV 09/17/16 03:00 10/01/16 02:59 09/26/16 16:40 1 MG Oxycodone HCl 20 mg 20 mg Q12 PO 09/17/16 09:00 10/01/16 08:59 09/26/16 07:51 20 MG Piperacillin Sod/ Tazobactam Sod/ Dextrose (Zosyn Iv/D5 100ml) 115 ml @ 28 mls/hr Q8H IV 09/17/16 04:00 09/27/16 23:59 09/26/16 13:22 28 MLS/HR Ondansetron HCl (Zofran Inj) 4 mg Q6H PRN IV 09/17/16 03:45 10/17/16 03:44 09/25/16 01:46 4 MG Piperacillin Sod/ Tazobactam Sod (Consult) 1 ea UD PRN N/A 09/17/16 04:30 10/17/16 04:29 Heparin Sodium (Porcine) (Heparin 10 Unit/ ml 5 ml Flush) 5 ml PRN PRN FLUSH 09/18/16 00:45 10/18/16 00:44 09/25/16 11:04 5 ML Daptomycin 1 ea 1 ea UD PRN N/A 09/18/16 10:15 10/18/16 10:14 Daptomycin/Sodium Chloride (Cubicin IV/Nss 50ml) 61.7 ml @ 120 mls/hr DAILY@0030 IV 09/19/16 00:30 10/01/16 00:29 09/26/16 00:49 120 MLS/HR Diphenhydramine HCl 25 mg 25 mg TID PRN IV 09/18/16 12:00 10/18/16 11:59 09/26/16 10:41 25 MG Caspofungin/ Sodium Chloride (Cancidas Inj/ Nss 250ml) 260 ml @ 250 mls/hr Q24H IV 09/21/16 20:00 10/06/16 23:59 09/25/16 19:39 250 MLS/HR Miscellaneous Information 1 ea UD PRN N/A 09/20/16 19:30 10/06/16 23:59 Ergocalciferol (Vitamin D Cap) 50,000 interunit DAILY PO 09/22/16 11:00 10/22/16 10:59 09/26/16 07:52 50,000 INTERUNIT Lactobacillus Acidophilus 4 tab 4 tab TIDM PO 09/22/16 17:00 10/22/16 16:59 09/26/16 16:39 4 TAB Sodium Chloride (1/2 Nss 1000ml) 1,000 ml @ 100 mls/hr Q10H IV 09/23/16 14:00 10/23/16 13:59 09/26/16 10:41 100 MLS/HR Magnesium Chloride (Slow-Mag Tab) 64 mg BID PO 09/24/16 08:00 10/24/16 07:59 09/26/16 07:51 64 MG Objective Vital Signs Date Time Temp Pulse Resp B/P Pulse Ox O2 Delivery O2 Flow Rate FiO2 09/26/16 16:00 Room Air 09/26/16 15:22 36.8 75 16 132/82 97 Room Air 09/26/16 08:00 Room Air 09/26/16 07:02 36.6 64 16 106/72 94 Room Air 09/26/16 01:29 Room Air 09/26/16 00:00 36.9 82 16 142/81 95 Room Air Physical Exam General Appearance: WD/WN, no apparent distress Eyes: normal inspection, sclerae normal ENT: normal ENT inspection, pharynx normal Neck: supple, trachea midline Respiratory/Chest: lungs clear, normal breath sounds, no respiratory distress Cardiovascular: regular rate, rhythm, no gallop, no murmur Abdomen: normal bowel sounds, non tender, soft, no organomegaly Extremities: no calf tenderness, normal capillary refill Neurologic/Psychiatric: alert, oriented x 3 Skin: normal color, no rash Lymphatic: no adenopathy Laboratory Results RUN DATE: 09/24/16 [facility] LAB PAGE 1 RUN TIME: 742 Specimen Inquiry PATIENT: ODALYS GALVEZ LOC: [id number] U # : [id number] AGE/SX: 40/M ROOM: [facility] REG : 09/17/[address]: Garcia Garcia MD : 1975 BED: 2 DIS : STATUS: ADM IN TLOC: SPEC #: [id number] RANDA: 09/22/16 STATUS: RES REQ #: [id number] RECD: 09/22/[address]: Jose Bailey MD SOURCE: BLOOD ENTR: 09/22/16-2 [facility] [address]: Felipe Clark M.D. [facility]: No Doctor, Assigned Dwainu, Joseline Brigid, Garcia Valverde MD Rogusky, Edwin, M.D. Thaker, Upendra., M.D. ORDERED: BLOOD CULTURE COMMENTS: Specimen Comment 1 SET OF 2 CULTURES Procedure Result Verified Site BLD CULT Preliminary 09/24/16-742 NO GROWTH TO DATE. Last 24 Hours Test 09/26/16 05:25 White Blood Count 9.25 K/uL Red Blood Count 4.24 M/uL Hemoglobin 9.5 g/dL Hematocrit 30.6 % Mean Corpuscular Volume 72.2 fL Mean Corpuscular Hemoglobin 22.4 pg Mean Corpuscular Hemoglobin Concent 31.0 g/dl Platelet Count 352 K/uL Mean Platelet Volume 10.2 fL Neutrophils (%) (Auto) 53.7 % Lymphocytes (%) (Auto) 33.1 % Monocytes (%) (Auto) 5.9 % Eosinophils (%) (Auto) 6.1 % Basophils (%) (Auto) 0.6 % Neutrophils # (Auto) 4.96 K/uL Lymphocytes # (Auto) 3.06 K/uL Monocytes # (Auto) 0.55 K/uL Eosinophils # (Auto) 0.56 K/uL Basophils # (Auto) 0.06 K/uL RDW Standard Deviation 46.5 fL RDW Coefficient of Variation 18.5 % Immature Granulocyte % (Auto) 0.6 % Immature Granulocyte # (Auto) 0.06 K/uL Sodium Level 142 mmol/L Potassium Level 3.4 mmol/L Chloride Level 105 mmol/L Carbon Dioxide Level 30 mmol/L Anion Gap 7.0 mmol/L Blood Urea Nitrogen 11 mg/dl Creatinine 1.40 mg/dl Est Creatinine Clear Calc Drug Dose 88.0 ml/min Estimated GFR () 73.4 Estimated GFR (Non- 63.3 BUN/Creatinine Ratio 7.9 Random Glucose 84 mg/dl Calcium Level 7.9 mg/dl Total Creatine Kinase 28 U/L RUN DATE: 09/25/16 [facility] LAB PAGE 1 RUN TIME: 1416 Specimen Inquiry PATIENT: ODALYS GALVEZ LOC: [id number] U # : [id number] AGE/SX: 40/M ROOM: [facility] REG : 09/17/[address]: Garcia Garcia MD : 1975 BED: 2 DIS : STATUS: ADM IN TLOC: SPEC #: [id number] RANDA: 09/18/16 STATUS: RUPA REQ #: [id number] RECD: 09/18/[address] [facility] DR: Garcia Garcia MD SOURCE: BLOOD ENTR: 09/18/16-[address]: Jose Bailey MD [facility]: Felipe Calrk M.D. No Doctor, Joseline Irizarry I., Kenan Esquivel M.D. Thaker, Upendra., M.D. ORDERED: BLOOD CULTURE Procedure Result Verified Site BLD CULT Final 09/25/16-1416 Organism 1 ZACK KRUSEI/INCONSPICUA SENS NO SENSITIVITY TO FOLLOW Phoned Positive Blood Culture Gram Stain Report to LUZ MARINA SZYMANSKI on 09/20/16 At 1903 By JENARO. Results were verbalized back to JENARO. 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 now also growing C krusei. Also with acute influenza. Caspofungin added to current antibiotic,I suspect patient has been manipulating his central catheter given multiple episodes of polymicrobial PICC infections. Will discuss further with all involved. Continue present Abx.
[2016-09-26] MEDS: CASPOFUNGIN INJ 50 MG in SODIUM CHLORIDE 0.9% 250ML 250 ML IV SCH (20:07)
[2016-09-26 23:19] VITALS: BP 126/73; PULSE 80; TEMP 36.9; O2SAT 98
[2016-09-27] MEDS: HYDROmorphone INJ 1 MG/ML SYR IV PRN ×6 (00:05→21:15)
[2016-09-27] MEDS: SODIUM CHLORIDE 0.9% IV SCH (00:05)
[2016-09-27] MEDS: DAPTOMYCIN IV SCH (00:05)
[2016-09-27] MEDS: DiphenhydrAMINE HCL 50 MG/ML VIAL IV PRN ×3 (04:26→21:12)
[2016-09-27] MEDS: PIPERACILL/TAZOBAC IV 3.375 GM in DEXTROSE 5% 100ML 100 ML IV SCH ×3 (06:00→21:32)
[2016-09-27 07:03] LABS: CREATININE 1.3 mg/dl (0.60-1.40)
[2016-09-27 07:39] VITALS: BP 110/63; PULSE 65; TEMP 36.6; O2SAT 94
[2016-09-27] MEDS: ERGOCALCIFEROL 50,000 INTER.UNIT CAP PO SCH (08:28)
[2016-09-27] MEDS: GABAPENTIN 600 MG TAB PO SCH ×2 (08:28→19:54)
[2016-09-27] MEDS: LACTOBACILLUS ACIDOPHILUS (FLORANEX) TAB PO SCH ×3 (08:29→17:25)
[2016-09-27] MEDS: SODIUM CHLORIDE 0.45% 1000ML 1,000 ML IV SCH ×2 (08:31→17:32)
[2016-09-27] MEDS: OXYCODONE HCL 20 MG TABCR (OXYCONTIN) PO SCH ×2 (08:39→21:11)
[2016-09-27] MEDS: MAGNESIUM CHLORIDE 64MG DELAYED REL TAB PO SCH ×2 (09:23→19:54)
--- NOTE | 2016-09-27 15:46 | Progress Note ---
Internal Med Progress Note Date of Service: Sep 27, 2016. Provider Documentation: SUBJECTIVE: The Patient was seen and examined Complains of right shoulder pain No other symptoms Remains stable OBJECTIVE: Vital Signs-as noted below Exam: General-no distress at rest Eyes-normal ENT-normal Neck-supple Lungs-clear to ausucltate bilaterally Heart-Regular,no murmur appreciated Abdomen-benign,no masses,bowel sound present Extremities-No edema Any movement of the right Shoulder ia painful Neuro-AAox3 Lab data as noted below. ASSESSMENT & PLAN: Sepsis with bacteremia- VRE and polymicrobial and yeast not abhi form blood cultures taken from the line Influenza a positive and completed Tamiflu Has been on iv daptomycin and Zosyn and caspofungin Appreciate Ortho and ID input MRI seromas vs infection Ortho signed off Will discharge tomorrow on IV antibiotics Chronic R shoulder pain-worse in setting of recent infection. Pt reports recently being off narcotics but now is requiring SR/IR oxy. pain management consulted and appreciate inputs. To continue current pain regimen Will need OP pain management Pruritus-generalized, patient states this is common for him when he takes IV abx. On IV Benadryl prn.No complaints today. JACQUELINE-likely 2/2 sepsis--Worsening Cr Abx as per pharmacy Consulted nephrology and appreciate inputs Renal function normalized Anemia' Likely due to Chronic disease complicated by sepsis Received 3 units of PRBC so far Hb stable at >9 DVT PROPHYLAXIS scds DISPOSITION to be determined Vital Signs: Date Time Temp Pulse Resp B/P Pulse Ox O2 Delivery O2 Flow Rate FiO2 09/27/16 08:16 Room Air 09/27/16 07:39 36.6 65 16 110/63 94 Room Air 09/27/16 00:00 Room Air 09/26/16 23:19 36.9 80 16 126/73 98 Room Air 09/26/16 21:23 Room Air 09/26/16 16:00 Room Air Lab Results: Results Past 24 Hours Test 09/27/16 06:20 Range/Units Creatinine 1.30 0.60-1.40 mg/dl Est Creatinine Clear Calc Drug Dose 94.8 ml/min Estimated GFR () 80.2 Estimated GFR (Non- 69.2
[2016-09-27 15:48] VITALS: BP 121/80; PULSE 88; TEMP 36.6; O2SAT 98
--- NOTE | 2016-09-27 19:44 | Infectious Disease Progress Nt ---
Progress Note Date of Service Sep 27, 2016. Subjective Pt evaluation today including: conversation w/ patient, physical exam, chart review, lab review, review of studies, conversation w/ labor relations consultant, review of inpatient medication list Shoulder pain unchanged. Remains afebrile. F/U blood cultures negative to date. All Other Systems: Reviewed and Negative Medications Current Inpatient Medications Medications (Trade) Dose Ordered Sig/Diane Route Start Time Stop Time Status Last Admin Dose Admin Acetaminophen (Tylenol Tab) 650 mg Q4H PRN PO 09/17/16 02:30 10/17/16 02:29 09/17/16 23:31 650 MG Gabapentin (Neurontin Tab) 600 mg BID PO 09/17/16 09:00 10/17/16 08:59 09/27/16 08:28 600 MG Oxycodone HCl (Roxicodone Immediate Rel Tab) 20 mg Q6H PRN PO 09/17/16 03:00 10/01/16 02:59 09/23/16 15:19 20 MG Hydromorphone HCl (Dilaudid Inj) 1 mg Q3H PRN IV 09/17/16 03:00 10/01/16 02:59 09/27/16 15:52 1 MG Oxycodone HCl 20 mg 20 mg Q12 PO 09/17/16 09:00 10/01/16 08:59 09/27/16 08:39 20 MG Piperacillin Sod/ Tazobactam Sod/ Dextrose (Zosyn Iv/D5 100ml) 115 ml @ 28 mls/hr Q8H IV 09/17/16 04:00 10/07/16 23:59 09/27/16 15:31 28 MLS/HR Ondansetron HCl (Zofran Inj) 4 mg Q6H PRN IV 09/17/16 03:45 10/17/16 03:44 09/25/16 01:46 4 MG Piperacillin Sod/ Tazobactam Sod (Consult) 1 ea UD PRN N/A 09/17/16 04:30 11/16/16 23:59 Heparin Sodium (Porcine) (Heparin 10 Unit/ ml 5 ml Flush) 5 ml PRN PRN FLUSH 09/18/16 00:45 10/18/16 00:44 09/25/16 11:04 5 ML Daptomycin 1 ea 1 ea UD PRN N/A 09/18/16 10:15 10/18/16 10:14 Daptomycin/Sodium Chloride (Cubicin IV/Nss 50ml) 61.7 ml @ 120 mls/hr DAILY@0030 IV 09/19/16 00:30 10/01/16 00:29 09/27/16 00:05 120 MLS/HR Diphenhydramine HCl 25 mg 25 mg TID PRN IV 09/18/16 12:00 10/18/16 11:59 09/27/16 12:42 25 MG Caspofungin/ Sodium Chloride (Cancidas Inj/ Nss 250ml) 260 ml @ 250 mls/hr Q24H IV 09/21/16 20:00 10/06/16 23:59 09/26/16 20:07 250 MLS/HR Miscellaneous Information 1 ea UD PRN N/A 09/20/16 19:30 10/06/16 23:59 Ergocalciferol (Vitamin D Cap) 50,000 interunit DAILY PO 09/22/16 11:00 10/22/16 10:59 09/27/16 08:28 50,000 INTERUNIT Lactobacillus Acidophilus 4 tab 4 tab TIDM PO 09/22/16 17:00 10/22/16 16:59 09/27/16 17:25 4 TAB Sodium Chloride (1/2 Nss 1000ml) 1,000 ml @ 100 mls/hr Q10H IV 09/23/16 14:00 10/23/16 13:59 09/27/16 17:32 100 MLS/HR Magnesium Chloride (Slow-Mag Tab) 64 mg BID PO 09/24/16 08:00 10/24/16 07:59 09/27/16 09:23 64 MG Objective Vital Signs Date Time Temp Pulse Resp B/P Pulse Ox O2 Delivery O2 Flow Rate FiO2 09/27/16 15:58 Room Air 09/27/16 15:48 36.6 88 17 121/80 98 Room Air 09/27/16 08:16 Room Air 09/27/16 07:39 36.6 65 16 110/63 94 Room Air 09/27/16 00:00 Room Air 09/26/16 23:19 36.9 80 16 126/73 98 Room Air 09/26/16 21:23 Room Air Physical Exam General Appearance: WD/WN, no apparent distress Eyes: normal inspection, sclerae normal ENT: normal ENT inspection, pharynx normal Neck: supple, no adenopathy, trachea midline Respiratory/Chest: chest non-tender, lungs clear, normal breath sounds, no respiratory distress Cardiovascular: regular rate, rhythm, no gallop, no murmur Abdomen: normal bowel sounds, non tender, soft, no organomegaly Extremities: no calf tenderness, normal capillary refill Neurologic/Psychiatric: alert, oriented x 3 Skin: normal color, no rash Lymphatic: no adenopathy Laboratory Results RUN DATE: 09/28/16 [facility] LAB PAGE 1 RUN TIME: 734 Specimen Inquiry PATIENT: ODALYS GALVEZ LOC: [id number] U # : [id number] AGE/SX: 40/M ROOM: [facility] REG : 09/17/[address]: Lake Lao M.D. : 1975 BED: 2 DIS : STATUS: ADM IN TLOC: SPEC #: [id number] RANDA: 09/22/16 STATUS: COMP REQ #: [id number] RECD: 09/22/[address]: Jose Bailey MD SOURCE: BLOOD ENTR: 09/22/16-1032 [facility] DR: Felipe Clark M.D. [facility]: No Doctor, Assigned Joseline Vivar I., Garcia Valverde MD Rogusky, Edwin, M.D. Thaker, Upendra., M.D. 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 now also growing C krusei. Also with acute influenza. Caspofungin added to current antibiotic,I suspect patient has been manipulating his central catheter given multiple episodes of polymicrobial PICC infections. Would give 14 days of caspofungin, and continue Daptomycin and Zosyn. Keshav need continued outpatient IV Rx. Zosyn will need to be converted to continuous infusion for outpatient therapy. Will discuss.
[2016-09-27] MEDS: CASPOFUNGIN INJ 50 MG in SODIUM CHLORIDE 0.9% 250ML 250 ML IV SCH (19:58)
[2016-09-27 23:58] VITALS: BP 123/67; PULSE 85; TEMP 36.9; O2SAT 93
[2016-09-28] MEDS: DAPTOMYCIN IV SCH ×2 (00:54→23:43)
[2016-09-28] MEDS: SODIUM CHLORIDE 0.9% IV SCH ×2 (00:54→23:43)
[2016-09-28] MEDS: HYDROmorphone INJ 1 MG/ML SYR IV PRN ×6 (01:00→22:32)
[2016-09-28] MEDS: SODIUM CHLORIDE 0.45% 1000ML 1,000 ML IV SCH ×2 (04:09→13:28)
[2016-09-28] MEDS: PIPERACILL/TAZOBAC IV 3.375 GM in DEXTROSE 5% 100ML 100 ML IV SCH ×3 (05:45→22:32)
[2016-09-28] MEDS: DiphenhydrAMINE HCL 50 MG/ML VIAL IV PRN ×3 (06:00→22:32)
[2016-09-28 07:02] VITALS: BP 102/71; PULSE 62; TEMP 36.6; O2SAT 96
[2016-09-28] MEDS: LACTOBACILLUS ACIDOPHILUS (FLORANEX) TAB PO SCH ×3 (08:22→17:46)
[2016-09-28] MEDS: GABAPENTIN 600 MG TAB PO SCH ×2 (08:22→20:23)
[2016-09-28] MEDS: ERGOCALCIFEROL 50,000 INTER.UNIT CAP PO SCH (08:22)
[2016-09-28] MEDS: MAGNESIUM CHLORIDE 64MG DELAYED REL TAB PO SCH ×2 (08:22→20:23)
[2016-09-28] MEDS: OXYCODONE HCL 20 MG TABCR (OXYCONTIN) PO SCH ×2 (08:23→20:23)
[2016-09-28 14:35] LABS: HEMATOCRIT 33.2 % (42-52); MEAN CELL VOLUME 71.6 fL (80-100); MEAN CORPUSCULAR HEMOGLOBIN 22.2 pg (25-34); MEAN PLATELET VOLUME 9.6 fL (7.4-10.4); PLATELET COUNT 364 K/uL (130-400); RED BLOOD COUNT 4.64 M/uL (4.7-6.1); WHITE BLOOD COUNT 9.72 K/uL (4.8-10.8)
[2016-09-28 14:59] VITALS: BP 131/65; PULSE 81; TEMP 36.7; O2SAT 97
[2016-09-28 15:07] LABS: BUN/CREATININE RATIO 10.2 (10-20); CALCIUM 8.4 mg/dl (8.5-10.1); CREATININE 1.3 mg/dl (0.60-1.40); MAGNESIUM 1.5 mg/dl (1.8-2.4); POTASSIUM 3.4 mmol/L (3.5-5.1)
[2016-09-28 15:10] LABS: ALB/GLOB RATIO 0.8 (0.9-2)
[2016-09-28] MEDS ORDERED: POTASSIUM CHLORIDE 20 MEQ TABCR PO STA (15:11)
--- NOTE | 2016-09-28 15:18 | Progress Note ---
Internal Med Progress Note Date of Service: Sep 28, 2016. Provider Documentation: SUBJECTIVE: The Patient was seen and examined Complains of right shoulder pain -ongoing No other symptoms No fever,chills OBJECTIVE: Vital Signs-as noted below Exam: General-no distress at rest Eyes-normal ENT-normal Neck-supple Lungs-clear to ausucltate bilaterally Heart-Regular,no murmur appreciated Abdomen-benign,no masses,bowel sound present Extremities-No edema Any movement of the right Shoulder ia painful Neuro-AAox3 Lab data as noted below. ASSESSMENT & PLAN: Electrolytes imbalance Supplement and recheck Sepsis with bacteremia- VRE and polymicrobial and yeast not abhi form blood cultures taken from the line Influenza a positive and completed Tamiflu Has been on iv daptomycin and Zosyn and caspofungin Appreciate Ortho and ID input MRI seromas vs infection Ortho signed off Discussed with the ID:: Caspofungin for 14 days,Dapto and Zosyn for a total of 4 weeks LFT and CPK next week Prescriptions given for the IV therapy at home Chronic R shoulder pain-worse in setting of recent infection. Pt reports recently being off narcotics but now is requiring SR/IR oxy. pain management consulted and appreciate inputs. To continue current pain regimen Will need OP pain management Pruritus-generalized, patient states this is common for him when he takes IV abx. On IV Benadryl prn.No complaints today. Will has Oral Benadryl as an op JACQUELINE-likely 2/2 sepsis--Worsening Cr Abx as per pharmacy Consulted nephrology and appreciate inputs Renal function normalized Anemia' Likely due to Chronic disease complicated by sepsis Received 3 units of PRBC so far Hb stable at >10 on 09/28/16 DVT PROPHYLAXIS scds Patient is ambulant DISPOSITION Likely discharge today /early tomorrow Vital Signs: Date Time Temp Pulse Resp B/P Pulse Ox O2 Delivery O2 Flow Rate FiO2 09/28/16 14:59 36.7 81 20 131/65 97 Room Air 09/28/16 08:00 Room Air 09/28/16 07:02 36.6 62 22 102/71 96 Room Air 09/28/16 00:00 Room Air 09/27/16 23:58 36.9 85 20 123/67 93 Room Air 09/27/16 20:00 Room Air 09/27/16 15:58 Room Air 09/27/16 15:48 36.6 88 17 121/80 98 Room Air Lab Results: Results Past 24 Hours Test 09/28/16 14:13 Range/Units White Blood Count 9.72 4.8-10.8 K/uL Red Blood Count 4.64 4.7-6.1 M/uL Hemoglobin 10.3 14.0-18.0 g/dL Hematocrit 33.2 42-52 % Mean Corpuscular Volume 71.6 80-100 fL Mean Corpuscular Hemoglobin 22.2 25-34 pg Mean Corpuscular Hemoglobin Concent 31.0 32-36 g/dl RDW Standard Deviation 47.8 36.4-46.3 fL RDW Coefficient of Variation 19.2 11.5-14.5 % Platelet Count 364 130-400 K/uL Mean Platelet Volume 9.6 7.4-10.4 fL Sodium Level 141 136-145 mmol/L Potassium Level 3.4 3.5-5.1 mmol/L Chloride Level 106 98-107 mmol/L Carbon Dioxide Level 26 21-32 mmol/L Anion Gap 9.0 3-11 mmol/L Blood Urea Nitrogen 13 7-18 mg/dl Creatinine 1.30 0.60-1.40 mg/dl Est Creatinine Clear Calc Drug Dose 94.8 ml/min Estimated GFR () 80.2 Estimated GFR (Non- 69.2 BUN/Creatinine Ratio 10.2 10-20 Random Glucose 83 70-99 mg/dl Calcium Level 8.4 8.5-10.1 mg/dl Magnesium Level 1.5 1.8-2.4 mg/dl Total Bilirubin 0.3 0.2-1 mg/dl Aspartate Amino Transf (AST/SGOT) 37 15-37 U/L Alanine Aminotransferase (ALT/SGPT) 50 12-78 U/L Alkaline Phosphatase 109 45-117 U/L Total Protein 6.9 6.4-8.2 gm/dl Albumin 3.1 3.4-5.0 gm/dl Globulin 3.8 2.5-4.0 gm/dl Albumin/Globulin Ratio 0.8 0.9-2
[2016-09-28 16:00] VITALS: O2SAT 97
[2016-09-28] MEDS: MAGNESIUM SULFATE 1GM / D5W 1 GM in PREMIXED IN D5W 100 ML IV SCH ×2 (16:02→17:46)
[2016-09-28] MEDS: CASPOFUNGIN INJ 50 MG in SODIUM CHLORIDE 0.9% 250ML 250 ML IV SCH (20:23)
[2016-09-28 23:41] VITALS: BP 109/72; PULSE 97; TEMP 36.8; O2SAT 96
[2016-09-29] MEDS: SODIUM CHLORIDE 0.45% 1000ML 1,000 ML IV SCH ×2 (01:46→11:21)
[2016-09-29] MEDS: HYDROmorphone INJ 1 MG/ML SYR IV PRN ×3 (01:46→11:20)
[2016-09-29] MEDS: DiphenhydrAMINE HCL 50 MG/ML VIAL IV PRN ×2 (06:34→16:35)
[2016-09-29] MEDS: PIPERACILL/TAZOBAC IV 3.375 GM in DEXTROSE 5% 100ML 100 ML IV SCH ×2 (06:34→13:05)
[2016-09-29 07:15] VITALS: BP 127/62; PULSE 65; TEMP 36.4; O2SAT 95
[2016-09-29] MEDS: LACTOBACILLUS ACIDOPHILUS (FLORANEX) TAB PO SCH ×3 (08:30→17:00)
[2016-09-29] MEDS: OXYCODONE HCL 20 MG TABCR (OXYCONTIN) PO SCH (08:30)
[2016-09-29] MEDS: GABAPENTIN 600 MG TAB PO SCH (08:31)
[2016-09-29] MEDS: ERGOCALCIFEROL 50,000 INTER.UNIT CAP PO SCH (08:31)
[2016-09-29] MEDS: MAGNESIUM CHLORIDE 64MG DELAYED REL TAB PO SCH (08:31)
[2016-09-29] MEDS ORDERED: NURSING VERBAL MED ORDER ONE (11:00)
--- NOTE | 2016-09-29 14:25 | Progress Note ---
Internal Med Progress Note Date of Service: Sep 29, 2016. Provider Documentation: SUBJECTIVE: The Patient was seen and examined Complains of right shoulder pain -ongoing No other symptoms No fever,chills Remains stable to be discharged OBJECTIVE: Vital Signs-as noted below Exam: General-no distress at rest Eyes-normal ENT-normal Neck-supple Lungs-clear to ausucltate bilaterally Heart-Regular,no murmur appreciated Abdomen-benign,no masses,bowel sound present Extremities-No edema Any movement of the right Shoulder is painful No redness /swelling of the right shoulder Neuro-AAox3 Lab data as noted below. ASSESSMENT & PLAN: Electrolytes imbalance Supplement and recheck Corrected Sepsis with bacteremia- VRE and polymicrobial and yeast not abhi form blood cultures taken from the line Influenza a positive and completed Tamiflu Has been on iv daptomycin and Zosyn and caspofungin Appreciate Ortho and ID input MRI seromas vs infection Ortho signed off Discussed with the ID:: Caspofungin for 14 days,Dapto and Zosyn for a total of 4 weeks LFT and CPK next week Prescriptions given for the IV therapy at home Will discharge home today Chronic R shoulder pain-worse in setting of recent infection. Pt reports recently being off narcotics but now is requiring SR/IR oxy. pain management consulted and appreciate inputs. To continue current pain regimen Please keep appointment with the Orth Pruritus-generalized, patient states this is common for him when he takes IV abx. On IV Benadryl prn.No complaints today. Will has Oral Benadryl as an op JACQUELINE-likely 2/2 sepsis--Worsening Cr Abx as per pharmacy Consulted nephrology and appreciate inputs Renal function normalized Anemia' Likely due to Chronic disease complicated by sepsis Received 3 units of PRBC so far Hb stable at >10 on 09/28/16 DVT PROPHYLAXIS scds Patient is ambulant DISPOSITION Likely discharge home today Discussed with the patient in detailed. Vital Signs: Date Time Temp Pulse Resp B/P Pulse Ox O2 Delivery O2 Flow Rate FiO2 09/29/16 08:22 Room Air 09/29/16 07:15 36.4 65 20 127/62 95 Room Air 09/29/16 00:00 Room Air 09/28/16 23:41 36.8 97 16 109/72 96 Room Air 09/28/16 16:00 97 Room Air 09/28/16 14:59 36.7 81 20 131/65 97 Room Air
[2016-09-29] MEDS ORDERED: OXYC20TA50 PO (14:33)
[2016-09-29] MEDS ORDERED: POTA10PO PO (14:33)
[2016-09-29] MEDS ORDERED: OXYC20TA32 PO (14:33)
[2016-09-29] MEDS ORDERED: SLWMEC PO (14:33)
[2016-09-29] MEDS ORDERED: LCTX PO (14:33)
[2016-09-29] MEDS ORDERED: CNCI50 IV (14:45)
[2016-09-29] MEDS ORDERED: PIPE1INJ11 IV (14:45)
[2016-09-29] MEDS ORDERED: DAPT500I IV (14:45)
--- NOTE | 2016-09-29 14:49 | Discharge Instructions ---
Discharge Instructions Date of Service Sep 29, 2016. Admission Reason for Admission: Sepsis Discharge Discharge Diagnosis / Problem: Chronic Right Shoulder infection,Sepsis Discharge Goals Goal(s): Prevent Disease Progression Activity Recommendations Activity Limitations: resume your previous activity . Instructions / Follow-Up Instructions / Follow-Up Dr Guerra on 10/06/16 at 7:45 AM.Please keep appointment with Dr Bailey and Ortho Current Hospital Diet Patient's current hospital diet: Regular Diet Discharge Diet Recommended Diet: Regular Diet Pending Studies Studies pending at discharge: no Medical Emergencies . Who to Call and When: Medical Emergencies: If at any time you feel your situation is an emergency, please call 911 immediately. . Non-Emergent Contact Non-Emergency issues call your: Primary Care Provider . Past History Medical & Surgical History: (1) Sepsis (2) Direct infection of right shoulder in infectious and parasitic diseases classified elsewhere (3) Peripheral neuropathy (4) History of MRSA infection (5) H/O shoulder surgery (6) History of dental surgery (7) S/p placement of Patten catheter (8) S/p closure of anal fissure (9) Status post debridement (10) S/p kidney stone removal (11) Abscess of right shoulder . "Provider Documentation" section prepared by Lake Lao. VTE Core Measure Inpt VTE Proph given/why not?: SCD's
[2016-09-29 16:00] VITALS: BP 144/86; PULSE 65; TEMP 36.7; O2SAT 95
[2016-09-29] MEDS: CASPOFUNGIN INJ 50 MG in SODIUM CHLORIDE 0.9% 250ML 250 ML IV SCH (16:35)
[2016-09-29] MEDS: OXYCODONE HCL IR 5 MG TAB (IMMEDIATE RELEASE) PO PRN (16:36)
[2016-09-29 17:32] VITALS: BP 144/86; PULSE 65; TEMP 36.7; O2SAT 95
--- NOTE | 2016-09-29 17:43 | Infectious Disease Progress Nt ---
Progress Note Date of Service Sep 29, 2016. Subjective Pt evaluation today including: conversation w/ patient, physical exam, chart review, lab review, review of studies, conversation w/ moving consultant, review of inpatient medication list Right shoulder pain unchanged. No new complaints. Remains afebrile. All Other Systems: Reviewed and Negative Medications Current Inpatient Medications Medications (Trade) Dose Ordered Sig/Diane Route Start Time Stop Time Status Last Admin Dose Admin Acetaminophen (Tylenol Tab) 650 mg Q4H PRN PO 09/17/16 02:30 10/17/16 02:29 09/17/16 23:31 650 MG Gabapentin (Neurontin Tab) 600 mg BID PO 09/17/16 09:00 10/17/16 08:59 09/29/16 08:31 600 MG Oxycodone HCl (Roxicodone Immediate Rel Tab) 20 mg Q6H PRN PO 09/17/16 03:00 10/01/16 02:59 09/29/16 16:36 20 MG Hydromorphone HCl (Dilaudid Inj) 1 mg Q3H PRN IV 09/17/16 03:00 10/01/16 02:59 09/29/16 11:20 1 MG Oxycodone HCl 20 mg 20 mg Q12 PO 09/17/16 09:00 10/01/16 08:59 09/29/16 08:30 20 MG Piperacillin Sod/ Tazobactam Sod/ Dextrose (Zosyn Iv/D5 100ml) 115 ml @ 28 mls/hr Q8H IV 09/17/16 04:00 10/07/16 23:59 09/29/16 13:05 28 MLS/HR Ondansetron HCl (Zofran Inj) 4 mg Q6H PRN IV 09/17/16 03:45 10/17/16 03:44 09/25/16 01:46 4 MG Piperacillin Sod/ Tazobactam Sod (Consult) 1 ea UD PRN N/A 09/17/16 04:30 11/16/16 23:59 Heparin Sodium (Porcine) (Heparin 10 Unit/ ml 5 ml Flush) 5 ml PRN PRN FLUSH 09/18/16 00:45 10/18/16 00:44 09/25/16 11:04 5 ML Daptomycin 1 ea 1 ea UD PRN N/A 09/18/16 10:15 4/26/17 10:14 Daptomycin/Sodium Chloride (Cubicin IV/Nss 50ml) 61.7 ml @ 120 mls/hr DAILY@0030 IV 09/19/16 00:30 10/01/16 00:29 09/28/16 23:43 120 MLS/HR Diphenhydramine HCl 25 mg 25 mg TID PRN IV 09/18/16 12:00 10/18/16 11:59 09/29/16 16:35 25 MG Caspofungin/ Sodium Chloride (Cancidas Inj/ Nss 250ml) 260 ml @ 250 mls/hr Q24H IV 09/21/16 20:00 10/06/16 23:59 09/29/16 16:35 250 MLS/HR Miscellaneous Information 1 ea UD PRN N/A 09/20/16 19:30 10/06/16 23:59 Ergocalciferol (Vitamin D Cap) 50,000 interunit DAILY PO 09/22/16 11:00 10/22/16 10:59 09/29/16 08:31 50,000 INTERUNIT Lactobacillus Acidophilus 4 tab 4 tab TIDM PO 09/22/16 17:00 10/22/16 16:59 09/29/16 13:05 4 TAB Sodium Chloride (1/2 Nss 1000ml) 1,000 ml @ 100 mls/hr Q10H IV 09/23/16 14:00 10/23/16 13:59 09/29/16 11:21 100 MLS/HR Magnesium Chloride (Slow-Mag Tab) 64 mg BID PO 09/24/16 08:00 10/24/16 07:59 09/29/16 08:31 64 MG Objective Vital Signs Date Time Temp Pulse Resp B/P Pulse Ox O2 Delivery O2 Flow Rate FiO2 09/29/16 17:32 36.7 65 18 95 Room Air 09/29/16 16:00 36.7 65 18 144/86 95 Room Air 09/29/16 08:22 Room Air 09/29/16 07:15 36.4 65 20 127/62 95 Room Air 09/29/16 00:00 Room Air 09/28/16 23:41 36.8 97 16 109/72 96 Room Air Physical Exam General Appearance: WD/WN, no apparent distress Eyes: normal inspection, sclerae normal ENT: normal ENT inspection, pharynx normal Neck: supple, no adenopathy, trachea midline Respiratory/Chest: chest non-tender, lungs clear, normal breath sounds, no respiratory distress Cardiovascular: regular rate, rhythm, no gallop, no murmur Abdomen: normal bowel sounds, non tender, soft, no organomegaly Extremities: no calf tenderness, normal capillary refill Neurologic/Psychiatric: alert, oriented x 3 Skin: normal color, no rash Lymphatic: no adenopathy Assessment and Plan 40-year-old male with 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 now also growing C krusei. Also with acute influenza. Caspofungin added to current antibiotic,I suspect patient has been manipulating his central catheter given multiple episodes of polymicrobial PICC infections. Would give 14 days of caspofungin, and continue Daptomycin and Zosyn. Keshav need continued outpatient IV Rx. Zosyn will need to be converted to continuous infusion for outpatient therapy. Will discuss.
--- NOTE | 2016-09-30 08:35 | Discharge Summary ---
Discharge Summary Date of Service Sep 30, 2016. Discharge Summary Admission Date: Sep 17, 2016 at 02:26 Discharge Date: Sep 29, 2016 Discharge Disposition: Home with services (Antibiotic Duration and doses were given as seperate prescriptions) Principal Diagnosis: Chronic Right Shoulder infection,Sepsis,episodes of polymicrobial PICC infections Secondary Diagnoses/Problems: Please see H&P and Hospital Progress note Consultations: Ortho and ID Medication Reconciliation New Medications: Caspofungin (Cancidas) 50 Mg/10 Ml Inj 50 MG IV DAILY, #1 Daptomycin (Daptomycin) 500 Mg Inj 585 MG IV DAILY, #1 Piperacillin Sodium-Tazobactam (Zosyn) 1 Inj Inj 3.375 GM IV Q6HWA, #1 Potassium Chloride (Potassium Chloride) 20 Meq Pow 20 MEQ PO DAILY, #30 Lactobacillus Acidophilus (Floranex) 1 Tab Tab 2 TAB PO TIDM for 30 Days, #180 TAB Magnesium Chloride (Mag64) 64 Mg Tabcr 64 MG PO BID for 30 Days, #60 Changed Medications: Oxycodone Hcl (Oxycodone Hcl) 20 Mg Tab 20 MG PO Q6HWA PRN for Pain for 7 Days, #20 (Changed from: EVERY 4 TO 6 HOURS) Continued Medications: Gabapentin (Neurontin) 600 Mg Tab 600 MG PO BID Oxycodone Hcl (Oxycontin) 20 Mg Tab 20 MG PO Q12 for 7 Days, #14 TAB (This prescription has been renewed) Discontinued Medications: Ertapenem Sodium (Invanz) 1 Gm Inj 1 GM IV UD, VIAL Linezolid (Zyvox) 600 Mg Tab 600 MG PO BID for 30 Days, #60 TAB 0 Refills Admission Information HPI (per Admitting provider): 40 YO male. History of right shoulder injury 2012 with recurrent infections. Followed by Dr. Bailey for ID and Dr. Byrd for Ortho. Last hospitalization at [facility] was 07/02/16. 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 Patten catheter was removed. Debridement of right shoulder was performed. Discharged to home 07/15/16 on IV ertapenem and PO linezolid. Low grade temp over the past week. Worsening right shoulder pain and swelling over past few days. Temp as high as 103 at home. Noted minimal drainage from right shoulder incision. No pain, erythema, drainage from Patten catheter. Having severe pain, not relieved by oxycodone at home. Family members have had influenza. Patient experiencing fever and myalgias; no pharyngitis or cough. Past Medical/Surgical History Medical Problems: (1) History of MRSA infection Status: Chronic (2) Peripheral neuropathy Status: Chronic Surgical Problems: (1) H/O shoulder surgery Status: Resolved (2) History of dental surgery Status: Resolved (3) S/p closure of anal fissure Status: Resolved (4) S/p kidney stone removal Status: Resolved (5) S/p placement of Patten catheter Status: Resolved (6) Status post debridement Status: Resolved . Family History Cancer Diabetes mellitus Heart disease Hypertension Social History Smoking Status: Never Smoker Alcohol Use: none Drug Use: none Marital Status: Housing status: lives with significant other Occupational Status: employed Immunizations History of Influenza Vaccine: Unknown History of Tetanus Vaccine?: Unknown History of Pneumococcal: No History of Hepatitis B Vaccine: Unknown Multi-Drug Resistant Organisms History of MDRO: Yes Type of MDRO: VRE, MRSA Allergies Coded Allergies: Iodinated Diagnostic Agents (Verified Allergy, Severe, anaphylaxis, ) Levofloxacin (Verified Allergy, Intermediate, RASH, 09/16/16) Patient received Levaquin during a previous admission (2013) but now has a rash with current administration of IV Levaquin Ciprofloxacin (Verified Allergy, Mild, RASH, 09/16/16) Morphine (Verified Allergy, Unknown, hives, 09/16/16) Home Medications Scheduled Ertapenem Sodium (Invanz), 1 GM IV UD Gabapentin (Neurontin), 600 MG PO BID Linezolid (Zyvox), 600 MG PO BID Oxycodone Hcl (Oxycontin), 15 MG PO Q12 Scheduled PRN Oxycodone Hcl (Oxycodone Hcl), 20 MG PO EVERY 4 TO 6 HOURS PRN for Pain Review of Systems Constitutional: + chills, + fatigue, + fever, + sweats Eyes: No diplopia, No worsening of vision ENT: No nasal symptoms, No sore throat Respiratory: No cough, No shortness of breath, No wheezing Cardiovascular: No chest pain, No edema Abdomen: + nausea, + vomiting, No GI bleeding, No diarrhea, No pain Musculoskeletal: + joint pain, + muscle pain Genitourinary - Male: No hematuria, No urinary frequency Hematologic / Lymphatic: No abnormal bleeding/bruising Integumentary: No rash Physical Ex - H&P Physical Exam Vital Signs Date Time Temp Pulse Resp B/P Pulse Ox O2 Delivery O2 Flow Rate FiO2 09/17/16 01:37 120 18 102/85 96 Room Air 09/17/16 00:02 125 18 90/54 95 Room Air 09/16/16 22:34 38.9 137 18 124/50 100 General Appearance: WD/WN, + moderate distress Head: normocephalic, atraumatic Eyes: normal inspection, PERRL, EOMI, sclerae normal ENT: normal ENT inspection, hearing grossly normal, pharynx normal Neck: supple, no adenopathy, thyroid normal, no JVD, trachea midline Respiratory/Chest: lungs clear, no respiratory distress, no accessory muscle use Cardiovascular: regular rate, rhythm, no edema, no gallop, no JVD, no murmur Abdomen/GI: non tender, soft, no organomegaly, no pulsatile mass Extremities/Musculoskelatal: no calf tenderness, + pertinent finding (right shoulder tenderness and swelling; limited range of motion; no drainage) Skin: normal color, warm/dry, no rash, + pertinent finding (Patten cath site without erythema or drainage) Lymphatic: no adenopathy Diagnostics - H&P Diagnostics Laboratory Results Results Past 24 Hours Test 09/16/16 23:13 09/16/16 23:18 09/16/16 23:25 09/16/16 23:59 Range/Units White Blood Count 4.28 4.8-10.8 K/uL Red Blood Count 4.86 4.7-6.1 M/uL Hemoglobin 10.6 14.0-18.0 g/dL Hematocrit 34.5 42-52 % Mean Corpuscular Volume 71.0 80-100 fL Mean Corpuscular Hemoglobin 21.8 25-34 pg Mean Corpuscular Hemoglobin Concent 30.7 32-36 g/dl Platelet Count 293 130-400 K/uL Mean Platelet Volume 9.6 7.4-10.4 fL Neutrophils (%) (Auto) 74.5 % Lymphocytes (%) (Auto) 21.5 % Monocytes (%) (Auto) 1.2 % Eosinophils (%) (Auto) 2.1 % Basophils (%) (Auto) 0.2 % Neutrophils # (Auto) 3.19 1.4-6.5 K/uL Lymphocytes # (Auto) 0.92 1.2-3.4 K/uL Monocytes # (Auto) 0.05 0.11-0.59 K/uL Eosinophils # (Auto) 0.09 0-0.5 K/uL Basophils # (Auto) 0.01 0-0.2 K/uL RDW Standard Deviation 43.9 36.4-46.3 fL RDW Coefficient of Variation 16.9 11.5-14.5 % Immature Granulocyte % (Auto) 0.5 % Immature Granulocyte # (Auto) 0.02 0.00-0.02 K/uL Microcytosis PRESENT Ovalocytes 1+ Erythrocyte Sedimentation Rate 25 0-14 mm/hr Sodium Level 141 136-145 mmol/L Potassium Level 3.5 3.5-5.1 mmol/L Chloride Level 106 98-107 mmol/L Carbon Dioxide Level 25 21-32 mmol/L Anion Gap 10.0 3-11 mmol/L Blood Urea Nitrogen 18 7-18 mg/dl Creatinine 1.30 0.60-1.40 mg/dl Est Creatinine Clear Calc Drug Dose 91.6 ml/min Estimated GFR () 80.2 Estimated GFR (Non- 69.2 BUN/Creatinine Ratio 13.8 10-20 Random Glucose 99 70-99 mg/dl Uric Acid 4.6 2.6-7.2 mg/dl Calcium Level 8.5 8.5-10.1 mg/dl Total Bilirubin 0.4 0.2-1 mg/dl Aspartate Amino Transf (AST/SGOT) 26 15-37 U/L Alanine Aminotransferase (ALT/SGPT) 37 12-78 U/L Alkaline Phosphatase 175 45-117 U/L C-Reactive Protein 3.48 0-0.29 mg/dl Total Protein 7.7 6.4-8.2 gm/dl Albumin 3.5 3.4-5.0 gm/dl Globulin 4.2 2.5-4.0 gm/dl Albumin/Globulin Ratio 0.8 0.9-2 Lipase 97 73-393 U/L Lyme Disease IgG Antibody NEG NEG Lyme Disease IgM Antibody NEG NEG Bedside Lactic Acid Venous 2.55 0.90-1.70 mmol/L Bedside Troponin I 0.000 0-0.045 ng/ml Influenza Type A Antigen POS for Influ A NEG Influenza Type B Antigen Neg for Influ B NEG Microbiology Results 09/16/16 Blood Culture, Received Pending 09/16/16 Blood Culture, Received Pending Diagnostic Radiology X-ray right shoulder- interpretation pending. . Impression - H&P Impression Assessment and Plan SEPSIS Meets criteria for sepsis- fever, tachycardia, elevated CRP, elevated lactate. Most likely source = recurrent right shoulder infection given symptoms. Consider line infection. Blood cultures obtained in ED. Received IV daptomycin and piperacillin / tazobactam which will be continued. Lowest systolic BP 90. Serum lactate = 2.55. Received fluid resuscitation in ED. Check repeat lactate. Monitor hemodynamic parameters. Consult ID and Ortho. ? INFLUENZA A Family members ill with influenza. [employer] swab for influenza A Ag positive in ED. No respiratory symptoms, but experiencing fever and myalgias. Rx with course of oseltamivir. CHRONIC / ACUTE PAIN Chronic pain due to right shoulder pathology. [place] PDMP database reviewed. Received Oxycontin 20 mg # 60 and oxycodone 10 mg # 120 on 08/25/16. Continue analgesics per usual outpatient regimen. Continue gabapentin. IV hydromorphone PRN for severe uncontrolled pain. VTE PROPHYLAXIS Moderate risk for VTE. Hold anticoagulants pending Ortho input / plan. SCD's. Ambulate. Transition to prophylactic anticoagulant if no invasive procedures anticipated in immediate future. DISPOSITION Admit to Telemetry Unit due to sepsis. Expected discharge to home. Ortho f/u with Dr. Byrd. ID f/u with Dr. Bailey. . VTE Prophylaxis Risk Level: Moderate Given or contraindicated: SCD's . Physical Exam (per Admitting): General Appearance: WD/WN, + moderate distress Head: normocephalic, atraumatic Eyes: normal inspection, PERRL, EOMI, sclerae normal ENT: normal ENT inspection, hearing grossly normal, pharynx normal Neck: supple, no adenopathy, thyroid normal, no JVD, trachea midline Respiratory/Chest: lungs clear, no respiratory distress, no accessory muscle use Cardiovascular: regular rate, rhythm, no edema, no gallop, no JVD, no murmur Abdomen/GI: non tender, soft, no organomegaly, no pulsatile mass Extremities/Musculoskelatal: no calf tenderness, + pertinent finding (right shoulder tenderness and swelling; limited range of motion; no drainage) Skin: normal color, warm/dry, no rash, + pertinent finding (Patten cath site without erythema or drainage) Lymphatic: no adenopathy Hospital Course Electrolytes imbalance Supplement and recheck Corrected Sepsis with bacteremia- VRE and polymicrobial and yeast not abhi form blood cultures taken from the line episodes of polymicrobial PICC infections Influenza a positive and completed Tamiflu Has been on iv daptomycin and Zosyn and caspofungin Appreciate Ortho and ID input MRI seromas vs infection Ortho signed off Discussed with the ID:: Caspofungin for 14 days,Dapto and Zosyn for a total of 4 weeks LFT and CPK next week Prescriptions given for the IV therapy at home Will discharge home today Chronic R shoulder pain-worse in setting of recent infection. Pt reports recently being off narcotics but now is requiring SR/IR oxy. pain management consulted and appreciate inputs. To continue current pain regimen Please keep appointment with the Orth Pruritus-generalized, patient states this is common for him when he takes IV abx. On IV Benadryl prn.No complaints today. Will has Oral Benadryl as an op JACQUELINE-likely 2/2 sepsis--Worsening Cr Abx as per pharmacy Consulted nephrology and appreciate inputs Renal function normalized Anemia' Likely due to Chronic disease complicated by sepsis Received 3 units of PRBC so far Hb stable at >10 on 09/28/16 DVT PROPHYLAXIS scds Patient is ambulant DISPOSITION Likely discharge home today Discussed with the patient in detailed. Total time spent on discharge = 40 minutes This includes examination of the patient, discharge planning, medication reconciliation, and communication with other providers. Discharge Instructions Date of Service Sep 29, 2016. Admission Reason for Admission: Sepsis Discharge Discharge Diagnosis / Problem: Chronic Right Shoulder infection,Sepsis Discharge Goals Goal(s): Prevent Disease Progression Activity Recommendations Activity Limitations: resume your previous activity . Instructions / Follow-Up Instructions / Follow-Up Dr Guerra on 10/06/16 at 7:45 AM.Please keep appointment with Dr Bailey and Michelle Current Hospital Diet Patient's current hospital diet: Regular Diet Discharge Diet Recommended Diet: Regular Diet Pending Studies Studies pending at discharge: no Medical Emergencies . Who to Call and When: Medical Emergencies: If at any time you feel your situation is an emergency, please call 911 immediately. . Non-Emergent Contact Non-Emergency issues call your: Primary Care Provider . Past History Medical & Surgical History: (1) Sepsis (2) Direct infection of right shoulder in infectious and parasitic diseases classified elsewhere (3) Peripheral neuropathy (4) History of MRSA infection (5) H/O shoulder surgery (6) History of dental surgery (7) S/p placement of Patten catheter (8) S/p closure of anal fissure (9) Status post debridement (10) S/p kidney stone removal (11) Abscess of right shoulder . "Provider Documentation" section prepared by Lake Lao. VTE Core Measure Inpt VTE Proph given/why not?: SCD's <Electronically signed by Lake Lao M.D.>
--- NOTE | 2016-10-02 09:55 | EDITING REQUIRED CODING QUERY ---
CODING QUERY To promote full compliance with coding requirements relating to patient care, provider participation is requested in all cases of auditing coder uncertainty. Please assist us with the question(s) below: Coding Question(s): Patient admitted with chronic shoulder joint infection and also receives IV antibiotics thru a central line. Discharge Summary mentions chronic shoulder infection and also consideration for IV Line infection. Blood cultures positive via line. Aside from the shoulder joint recurrent chronic infection, please check below the other diagnosis you were treated . Thank you. Giorgio Leslie [facility] Physician Response: Patient was treated for a central venous line infection Patient did not have a central venous line infection Cannot clinically correlate if patient had a central venous line infection ___x____Other/ Please document: ___Suspected polymicrobial infection of the PICC line as per ID Principal diagnosis: "_that condition established after study, to be chiefly responsible for occasioning the admission of the patient to the hospital for care." Co-Existing Principal Diagnosis: "_when two or more diagnoses equally meet the criteria for principal diagnosis as determined by the circumstances of admission, diagnostic work up, and/or therapy provided, and the Alphabetic Index, Tabular List, or another coding guideline does not provide sequencing direction, any one of the diagnoses may be sequenced first." "When the physician has documented what appears to be a current diagnosis in the body of the record, but has not included the diagnosis in the final diagnostic statement, the physician should be asked whether the diagnosis should be added." (Source Coding Clinic 2 QTR90. p3-4)
[2016-12-28] MEDS ORDERED: MTR800 PO (15:23)
[2016-12-28] MEDS ORDERED: ONDA4TAB46 PO (15:23)
[2016-12-28] MEDS ORDERED: PRT40 PO (15:23)
[2016-12-28] MEDS ORDERED: DFL100 PO (15:23)
== END 2016-09-29 19:06 | disposition home health service (06) | DRG 314 ==
LOC: ENRESERVTM → ENRESERVDT → C.EDB 22:32 → C.2T 09-17 02:26 → C.MS4W 09-19 17:59
PROVIDERS: ADMIT Hospitalist; ATTEND Internal Medicine
DX: T80.218A Other infection due to central venous catheter, initial encounter (principal); A40.9 Streptococcal sepsis, unspecified; N17.0 Acute kidney failure with tubular necrosis; M00.811 Arthritis due to other bacteria, right shoulder; R65.20 Severe sepsis without septic shock; G62.9 Polyneuropathy, unspecified; L29.8 Other pruritus; T36.95XA Adverse effect of unspecified systemic antibiotic, initial encounter; D53.9 Nutritional anemia, unspecified; R19.5 Other fecal abnormalities; E83.51 Hypocalcemia; J11.89 Influenza due to unidentified influenza virus with other manifestations; N27.0 Small kidney, unilateral; E86.1 Hypovolemia; Y92.239 Unspecified place in hospital as the place of occurrence of the external cause; Z86.14 Personal history of Methicillin resistant Staphylococcus aureus infection; Z83.3 Family history of diabetes mellitus

== ENCOUNTER 2016-10-06 09:08 | Emergency (ER) | payer OTHER ==
[~2016-10-06] VITALS: Ht 175.3 cm; Wt 97.0 kg
[~2016-10-06 09:08] MED LIST changes: +CNCI50 IV; +DAPT500I IV; -DIPH25CA65 PO; -FRRS300 PO; +LCTX PO; -LINE1TAB7 PO; -OXYC15TA89 PO; +OXYC20TA50 PO; +PIPE1INJ11 IV; -POTA10CA28 PO; +POTA10PO PO; -SENN-61 PO; +SLWMEC PO
[2016-10-06 09:14] VITALS: TEMP 37.2; Ht 175.3 cm; Wt 97.0 kg
[2016-10-06] MEDS ORDERED: POTA20TA16 PO (09:57)
--- NOTE | 2016-10-06 09:58 | EMERGENCY ROOM VISIT NOTE ---
History First contact with patient: 09:21 Chief Complaint: PAIN (GENERALIZED) Stated Complaint: PAIN History of Present Illness The patient is a 40 year old male who presents to the Emergency Room with request for medication refill. The patient has a long-standing history of right shoulder pain, surgery and infection stemming from a Worker's Comp. injury. The patient was discharged one week ago from the hospital. He had been diagnosed with sepsis. He currently has a PICC line. The patient denies any significant change in his symptoms. He denies any fevers. The patient presents solely for pain management. The patient had been on high doses of oxycodone and OxyContin for the last several years. When he was admitted to the hospital and discharged one week ago he was given prescriptions for oxycodone and OxyContin for 7 days. He states that when he was discharged the hospitalist encouraged him to switch family doctors to one that was closer in his area. The patient states that he did this and when he called to have a refill of his pain medication they declined because they have not yet seen him as a patient. He then contacted his previous family doctor who would not give him any medication because he had left their practice. He attempted to contact Dr. Byrd but he is in surgery. The patient was not sure what to do so he came to the emergency department. The patient has an appointment with pain management in [place] in 3 weeks. Review of Systems A 10 system review of systems was completed with positives and pertinent negatives listed in the HPI. Past Medical/Surgical History Medical Problems: (1) Cellulitis of shoulder (2) Direct infection of right shoulder in infectious and parasitic diseases classified elsewhere (3) History of MRSA infection (4) Peripheral neuropathy (5) Sepsis Surgical Problems: (1) H/O shoulder surgery (2) History of dental surgery (3) S/p closure of anal fissure (4) S/p kidney stone removal (5) S/p placement of Patten catheter (6) Status post debridement Family History Cancer Diabetes mellitus Heart disease Hypertension Social History Smoking Status: Never Smoker Alcohol Use: none Drug Use: none Marital Status: Housing Status: lives with family Occupation Status: employed Current/Historical Medications Scheduled Caspofungin (Cancidas), 50 MG IV DAILY Daptomycin (Daptomycin), 585 MG IV DAILY Lactobacillus Acidophilus (Floranex), 2 TAB PO TIDM Magnesium Chloride (Slow-Mag Tab), 64 MG PO BID Oxycodone Hcl (Oxycontin), 20 MG PO Q12 Piperacillin Sodium-Tazobactam (Zosyn), 3.375 GM IV Q6HWA Potassium Ext Rel (Klor-Con), 20 MEQ PO DAILY Scheduled PRN Oxycodone Hcl (Oxycodone Hcl), 20 MG PO Q6HWA PRN for Pain Allergies Coded Allergies: Iodinated Diagnostic Agents (Verified Allergy, Severe, anaphylaxis, ) Levofloxacin (Verified Allergy, Intermediate, RASH, 09/16/16) Patient received Levaquin during a previous admission (2013) but now has a rash with current administration of IV Levaquin Ciprofloxacin (Verified Allergy, Mild, RASH, 09/16/16) Morphine (Verified Allergy, Unknown, hives, 09/16/16) Physical Exam Vital Signs Date Time Temp Pulse Resp B/P Pulse Ox O2 Delivery O2 Flow Rate FiO2 10/06/16 11:58 81 18 154/111 97 10/06/16 11:02 75 18 139/97 96 Room Air 10/06/16 09:14 37.2 104 16 129/95 97 Physical Exam VITALS: Vitals are noted on the nurse's note and reviewed by myself. Vital signs stable. The patient is afebrile. GENERAL: This is a 40-year-old male, in no acute distress, nondiaphoretic, well- developed well-nourished. SKIN: There is no obvious erythema. PICC line in place. There is no tenting of the skin. Capillary reflex less than 2 seconds. HEAD: Normocephalic atraumatic. EARS: The external ears are normal in appearance. EYES: Pupils equal round and reactive to light and accommodation. Conjunctivae without injection, sclerae without icterus. Extraocular movements intact. NOSE: Patent, turbinates without inflammation or discharge. MOUTH: Mucous membranes moist. Tonsils are not enlarged. Pharynx without erythema or exudate. Uvula midline. Airway patent. Tongue does not deviate. NECK: Supple without nuchal rigidity. No JVD. HEART: Regular rate and rhythm without murmurs gallops or rubs. LUNGS: Clear to auscultation bilaterally without wheezes, rales or rhonchi. No retractions or accessory muscle use. MUSCULOSKELETAL: No muscle atrophy, erythema, or edema noted. Right shoulder is in a sling. Decreased range of motion secondary to pain. NEURO: Patient was alert and oriented to person place and time. No focal neurological deficits. Medical Decision & Procedures Medications Administered Medications (Trade) Dose Ordered Sig/Diane Route Start Time Stop Time Status Last Admin Dose Admin Oxycodone HCl (Roxicodone Immediate Rel 5MG Home Pack) 1 homepack UD ONCE PO 10/06/16 11:15 10/06/16 11:16 DC 10/06/16 11:57 1 HOMEPACK ED Course The patient was seen and examined. Previous visits were reviewed. The patient presents emergency department requesting a refill on his narcotic medications. I did review the prescription drug monitoring website. The patient was discharged one week ago from the hospital and had been given a prescription for one week. He followed up with a new family doctor today who declined to give him pain medication until he was seen by pain management. The patient states that he switched his family doctor and the family doctor he previously saw would not prescribe medication. When I asked further about this he stated that it was the pain management in [place] that he switched and not a family doctor which does not entirely make sense. I [facility] [address] [facility] She was able to read Dr. Guerra's note. He saw the patient today and declined to give him narcotics until he sees pain management. I then spoke with Noemí Mercado PA-C she states that her group agreed to see the patient in the hospital but will not see him as an outpatient in the clinic. They're concerned that he displays drug-seeking behavior. I was then able to speak with Dr. Guerra who saw the patient in follow-up today. He recommended not to give the patient any narcotics at this time. He was concerned with the number of prescribers and narcotic prescriptions that he has had since 2010. I agreed to only give the patient a take-home pack of OxyIR. He was advised that additional pain management must, from his orthopedist, pain management for his family doctor. The case was discussed with who agrees with the assessment and treatment plan. Medical Decision The differential diagnosis includes drug-seeking behavior, medication refill request, among others [place] Drug [place] Search Results: patient reviewed within database, see additional documentation Impression Primary Impression: Shoulder pain Departure Information Dispostion Home / Self-Care Condition GOOD Referrals No Doctor, Assigned (PCP) Patient Instructions [facility] Additional Instructions You must follow with pain management for further pain management Return with worsening symptoms
[2016-10-06] MEDS ORDERED: OXYCODONE IR HOME PACK PO ONE (11:15)
[2016-10-06 11:58] VITALS: BP 154/111; PULSE 81; O2SAT 97
[2016-12-28] MEDS ORDERED: ONDA4TAB46 PO (15:23)
[2016-12-28] MEDS ORDERED: MTR800 PO (15:23)
[2016-12-28] MEDS ORDERED: DFL100 PO (15:23)
[2016-12-28] MEDS ORDERED: PRT40 PO (15:23)
== END 2016-10-06 11:59 | disposition home or self-care (01) ==
LOC: C.EDB 09:09
DX: M25.511 Pain in right shoulder (principal); G62.9 Polyneuropathy, unspecified; Z86.14 Personal history of Methicillin resistant Staphylococcus aureus infection; Z80.9 Family history of malignant neoplasm, unspecified; Z83.3 Family history of diabetes mellitus; Z82.49 Family history of ischemic heart disease and other diseases of the circulatory system; Z79.899 Other long term (current) drug therapy

== ENCOUNTER → 2016-10-11 | Outpatient (CLI) | payer OTHER ==
[~2016-10-11] MED LIST changes: +DFL100 PO; +MTR800 PO; -NRN/600 PO; +NRN600 PO; +ONDA4TAB46 PO; +OXYC-164 PO; +OXYC-292 PO; -POTA10PO PO; +POTA20TA16 PO; +PRT40 PO
[2016-10-11 15:59] LABS: BASO % 0.5 %; BASO ABS # 0.07 K/uL (0-0.2); EOS % 1.6 %; HEMATOCRIT 42.7 % (42-52); IG% 0.3 %; MEAN CORPUSCULAR HEMOGLOBIN 23.2 pg (25-34); MEAN CORPUSCULAR HGB CONC 30.9 g/dl (32-36); MEAN PLATELET VOLUME 10.5 fL (7.4-10.4); MONO % 8.3 %; NEUT % 75.3 %; PLATELET COUNT 428 K/uL (130-400); RED BLOOD COUNT 5.69 M/uL (4.7-6.1); WHITE BLOOD COUNT 14.29 K/uL (4.8-10.8)
[2016-10-11 16:23] LABS: ANISOCYTOSIS PRESENT; COMPLETE YES; ECHINOCYTES 1+; OVALOCYTES 1+; POIKILOCYTOSIS PRESENT; SCHISTOCYTES 1+
[2016-10-11 18:15] LABS: ALKALINE PHOSPHATASE 141 U/L (45-117); ALT/SGPT 62 U/L (12-78); AST/SGOT 31 U/L (15-37); BLOOD UREA NITROGEN 16 mg/dl (7-18); BUN/CREATININE RATIO 12.6 (10-20); C-REACTIVE PROTEIN < 0.29 mg/dl (0-0.29); CALCIUM 9.5 mg/dl (8.5-10.1); CARBON DIOXIDE 22 mmol/L (21-32); CHLORIDE 110 mmol/L (98-107); GLUCOSE 96 mg/dl (70-99); SODIUM 140 mmol/L (136-145)
== END | disposition home or self-care (01) ==
LOC: C.LAB1850 14:03
PROVIDERS: ATTEND Internal Medicine Infectious Disease
DX: A49.02 Methicillin resistant Staphylococcus aureus infection, unspecified site (principal)

== ENCOUNTER 2016-12-12 23:01 | Inpatient (IN) | payer OTHER ==
[~2016-12-12] VITALS: Ht 175.3 cm; Wt 97.3 kg
[~2016-12-12 23:01] MED LIST changes: -DFL100 PO; -MTR800 PO; -NRN600 PO; -ONDA4TAB46 PO; -OXYC-164 PO; -OXYC-292 PO; -PRT40 PO
[2016-12-12] MEDS ORDERED: SODIUM CHLORIDE 0.9% 1000ML 1,000 ML IV STA (23:28)
[2016-12-13] MEDS ORDERED: OXYC-164 PO (00:18)
[2016-12-13] MEDS ORDERED: NRN600 PO (00:18)
[2016-12-13] MEDS ORDERED: OXYC-292 PO (00:18)
[2016-12-13 00:25] LABS: BUN/CREATININE RATIO 9.5 (10-20); CALCIUM 8.2 mg/dl (8.5-10.1); CREATININE 1.1 mg/dl (0.60-1.40); POTASSIUM 3.3 mmol/L (3.5-5.1)
[2016-12-13 00:28] LABS: ALB/GLOB RATIO 0.9 (0.9-2); C-REACTIVE PROTEIN 4.69 mg/dl (0-0.29)
[2016-12-13 00:31] LABS: BASO % 0.5 %; BASO ABS # 0.05 K/uL (0-0.2); COMPLETE YES; EOS % 9.7 %; HEMATOCRIT 38.6 % (42-52); IG% 0.2 %; LYMPH % 18.3 %; LYMPH ABS # 1.74 K/uL (1.2-3.4); MEAN CELL VOLUME 77.2 fL (80-100); MEAN CORPUSCULAR HEMOGLOBIN 23.2 pg (25-34); MEAN CORPUSCULAR HGB CONC 30.1 g/dl (32-36); MEAN PLATELET VOLUME 10.3 fL (7.4-10.4); MONO % 7.7 %; NEUT % 63.6 %; PLATELET COUNT 306 K/uL (130-400)
[2016-12-13] MEDS ORDERED: ACETAMINOPHEN 500 MG TAB PO STA (01:07)
[2016-12-13] MEDS ORDERED: ONDANSETRON INJ 2 MG/ML 2 ML VIAL IV STA (01:07)
[2016-12-13] MEDS ORDERED: OXYCODONE HCL IR 5 MG TAB (IMMEDIATE RELEASE) PO STA (01:25)
[2016-12-13] MEDS ORDERED: POTASSIUM CHLORIDE 20 MEQ TABCR PO ONE (03:15)
[2016-12-13] MEDS ORDERED: POTASSIUM CHLORIDE 10 MEQ TABCR ONE (03:27)
[2016-12-13 03:50] VITALS: BP 160/99; PULSE 93; TEMP 36.7; O2SAT 98; Ht 175.3 cm; Wt 97.3 kg
[2016-12-13] MEDS ORDERED: PIPERACILLIN/TAZOBACTAM 4.5 GM/100ML D5W IV SCH (06:00)
--- NOTE | 2016-12-13 06:06 | History and Physical ---
History & Physical Date & Time of Service: Dec 13, 2016 at 05:24 Chief Complaint: Right Shoulder Pain Primary Care Physician: Jose Bailey MD History of Present Illness Source: patient, clinic records, hospital records 41 yo M with multiple admission for right shoulder pain and infection came to the ER for worsening right shoulder pain. Had multiple surgery in the right shoulder. Last hospitalization at [facility] was on 09/17/16 to 09/30/16 for right shoulder Infection. Followed by Dr. Bailey for ID and Dr. Byrd for Ortho. He has been on empirical Zosyn and Daptomycin. Pt said the pain in his right shoulder starting to get worst and swelling over past 2 days. Noted erythema around the right shoulder incision that seems to expand in less than 24 hrs. Pt said that pain is about 9/10, worsening with movement of the shoulder denies any drainage, fever, chills and palpitation follow with pain management for the right shoulder pain. Past Medical/Surgical History Medical Problems: (1) History of MRSA infection Status: Chronic (2) Peripheral neuropathy Status: Chronic Surgical Problems: (1) H/O shoulder surgery Status: Resolved (2) History of dental surgery Status: Resolved (3) S/p closure of anal fissure Status: Resolved (4) S/p kidney stone removal Status: Resolved (5) S/p placement of Patten catheter Status: Resolved (6) Status post debridement Status: Resolved Family History Cancer Diabetes mellitus Heart disease Hypertension Social History Smoking Status: Never Smoker Drug Use: none Marital Status: Housing status: lives with significant other Occupational Status: employed Immunizations History of Influenza Vaccine: Unknown History of Tetanus Vaccine?: Unknown History of Pneumococcal: No History of Hepatitis B Vaccine: Unknown Multi-Drug Resistant Organisms History of MDRO: Yes Type of MDRO: VRE, MRSA Allergies Coded Allergies: Iodinated Diagnostic Agents (Verified Allergy, Severe, anaphylaxis, ) Levofloxacin (Verified Allergy, Intermediate, RASH, 12/13/16) Patient received Levaquin during a previous admission (2013) but now has a rash with current administration of IV Levaquin Ciprofloxacin (Verified Allergy, Mild, RASH, 12/13/16) Morphine (Verified Allergy, Unknown, hives, 12/13/16) Home Medications Scheduled Daptomycin (Daptomycin), 585 MG IV DAILY Gabapentin (Gabapentin), 600 MG PO TID Oxycodone Hcl (Oxycodone Hcl Er), 10 MG PO Q12 Piperacillin Sodium-Tazobactam (Zosyn), 3.375 GM IV Q6HWA Scheduled PRN Oxycodone Hcl (Oxycodone Hcl), 10 MG PO Q6 PRN for Pain Review of Systems Constitutional: No fever, No sweats, No weakness Eyes: No eye pain, No redness ENT: No hearing loss, No nasal symptoms Respiratory: No cough, No sputum, No wheezing Cardiovascular: No chest pain, No orthopnea, No claudication Abdomen: + diarrhea, No pain, No nausea, No vomiting Musculoskeletal: + problem reported (right shoulder pain), No calf pain Genitourinary - Male: No hematuria, No dysuria Neurologic: No paralysis, No weakness Psychiatric: No anxiety Endocrine: No fatigue, No excessive thirst Hematologic / Lymphatic: No swollen lymph nodes, No night sweats Integumentary: No rash, No itch Physical Exam Vital Signs Date Time Temp Pulse Resp B/P (MAP) Pulse Ox O2 Delivery O2 Flow Rate FiO2 12/13/16 03:50 36.7 93 18 160/99 98 Room Air 12/13/16 03:36 37.2 92 18 112/64 94 12/13/16 03:32 92 18 112/64 94 Room Air 12/13/16 00:55 37.2 90 20 153/102 97 Room Air 12/12/16 23:05 36.9 111 22 150/84 98 Room Air General Appearance: WD/WN, no apparent distress Head: normocephalic, atraumatic Eyes: normal inspection, PERRL, EOMI ENT: hearing grossly normal Neck: supple, no JVD Respiratory/Chest: lungs clear, no respiratory distress, no accessory muscle use Cardiovascular: regular rate, rhythm, no JVD Abdomen/GI: normal bowel sounds, non tender, soft Back: normal inspection, no CVA tenderness Extremities/Musculoskelatal: no calf tenderness, + pertinent finding (right shoulder pain, erythema and swelling, decrease ROM in the right shoulder) 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-XII nml as tested, alert, oriented x 3 Skin: normal color, warm/dry Diagnostics Laboratory Results Results Past 24 Hours Test 12/12/16 23:40 12/12/16 23:53 Range/Units White Blood Count 9.50 4.8-10.8 K/uL Red Blood Count 5.00 4.7-6.1 M/uL Hemoglobin 11.6 14.0-18.0 g/dL Hematocrit 38.6 42-52 % Mean Corpuscular Volume 77.2 80-100 fL Mean Corpuscular Hemoglobin 23.2 25-34 pg Mean Corpuscular Hemoglobin Concent 30.1 32-36 g/dl Platelet Count 306 130-400 K/uL Mean Platelet Volume 10.3 7.4-10.4 fL Neutrophils (%) (Auto) 63.6 % Lymphocytes (%) (Auto) 18.3 % Monocytes (%) (Auto) 7.7 % Eosinophils (%) (Auto) 9.7 % Basophils (%) (Auto) 0.5 % Neutrophils # (Auto) 6.04 1.4-6.5 K/uL Lymphocytes # (Auto) 1.74 1.2-3.4 K/uL Monocytes # (Auto) 0.73 0.11-0.59 K/uL Eosinophils # (Auto) 0.92 0-0.5 K/uL Basophils # (Auto) 0.05 0-0.2 K/uL RDW Standard Deviation 48.2 36.4-46.3 fL RDW Coefficient of Variation 17.1 11.5-14.5 % Immature Granulocyte % (Auto) 0.2 % Immature Granulocyte # (Auto) 0.02 0.00-0.02 K/uL Erythrocyte Sedimentation Rate 14 0-14 mm/hr Sodium Level 139 136-145 mmol/L Potassium Level 3.3 3.5-5.1 mmol/L Chloride Level 104 98-107 mmol/L Carbon Dioxide Level 28 21-32 mmol/L Anion Gap 7.0 3-11 mmol/L Blood Urea Nitrogen 10 7-18 mg/dl Creatinine 1.10 0.60-1.40 mg/dl Est Creatinine Clear Calc Drug Dose 75.0 ml/min Estimated GFR () 97.5 Estimated GFR (Non- 84.1 BUN/Creatinine Ratio 9.5 10-20 Random Glucose 124 70-99 mg/dl Calcium Level 8.2 8.5-10.1 mg/dl Total Bilirubin 0.5 0.2-1 mg/dl Aspartate Amino Transf (AST/SGOT) 24 15-37 U/L Alanine Aminotransferase (ALT/SGPT) 43 12-78 U/L Alkaline Phosphatase 130 45-117 U/L C-Reactive Protein 4.69 0-0.29 mg/dl Total Protein 7.1 6.4-8.2 gm/dl Albumin 3.4 3.4-5.0 gm/dl Globulin 3.7 2.5-4.0 gm/dl Albumin/Globulin Ratio 0.9 0.9-2 Bedside Lactic Acid Venous 1.36 0.90-1.70 mmol/L Microbiology Results 12/12/16 Blood Culture, Received Pending 12/12/16 Blood Culture, Received Pending Diagnostic Radiology CXR shown no acute finding Impression Assessment and Plan Right Shoulder pain, Redness and Swelling Possible related to cellulitis vs abscess Recurrent admission for right shoulder infections Has been on Zosyn and Dapto Continue IV abx Elevated C-reactive blood cx pending Will consult ID will consult ortho CHRONIC / ACUTE PAIN Chronic pain due to right shoulder pathology. [place] database reviewed. Received Oxycontin 20 mg # 60 and oxycodone 10 mg # 120 on 12/10/16. Continue analgesics per usual outpatient regimen. Continue gabapentin. IV hydromorphone PRN for severe uncontrolled pain. HYPOKALEMIA K replaced Monitor BMP VTE PROPHYLAXIS SCD's. Ambulate. Advanced Directives Existing Living Will: Yes Existing Power of Senior Software Qa Engineer: Yes VTE Prophylaxis VTE Risk Assessment Done? Y/N: Yes Risk Level: Low
[2016-12-13] MEDS ORDERED: SODIUM CHLORIDE 0.9% 1000ML 1,000 ML IV SCH (06:15)
[2016-12-13] MEDS: OXYCODONE HCL IR 5 MG TAB (IMMEDIATE RELEASE) PO PRN ×3 (06:25→20:25)
--- NOTE | 2016-12-13 06:42 | DIAGNOSTIC IMAGING REPORT ---
CHEST ONE VIEW PORTABLE CLINICAL HISTORY: sepsis dyspnea COMPARISON STUDY: 09/20/2016 FINDINGS: The bones soft tissues and hemidiaphragms are normal. The cardiomediastinal silhouette is normal. The lungs are clear. The pulmonary vasculature is normal. IMPRESSION: Negative chest. Electronically signed by: Natanael Wilson M.D. 12/13/2016 6:40 AM Dictated Date/Time: 12/13/2016 6:39 AM
[2016-12-13] MEDS ORDERED: PIPERACILL/TAZOBAC CONSULT ACTIVE PRN (07:00)
--- NOTE | 2016-12-13 07:21 | EMERGENCY ROOM VISIT NOTE ---
History First contact with patient: 23:16 Chief Complaint: WOUND INFECTION Stated Complaint: RIGHT SHOULDER PAIN Nursing Triage Summary: chronic R shoulder infections. Redness/pain in R deltoid started today. Reports fever at home for which he took tylenol. History of Present Illness The patient is a 41 year old male who presents to the Emergency Room with complaints of a possible infection in his right shoulder. The patient states that he has recurrent right shoulder infections. He states he has had over 20 surgeries and sees [facility]. He also follows closely with Dr. Bailey of infectious disease. He currently has a port and receives IV Zosyn every 6 hours at home and IV daptomycin once daily. He reports that yesterday, he developed pain and redness in the shoulder and that the arm surrounding the area was hard to touch. He has been taking Tylenol at home but states that he did have fevers up to 101.2F today. He reports decreased range of motion of the shoulder. He states this feels like previous infections. Review of Systems A complete 10 point review of systems was reviewed with the patient with pertinent positives and negatives as per history of present illness. All else were negative. Past Medical/Surgical History Medical Problems: (1) Cellulitis of shoulder (2) Direct infection of right shoulder in infectious and parasitic diseases classified elsewhere (3) History of MRSA infection (4) Peripheral neuropathy (5) Right shoulder pain (6) Sepsis Surgical Problems: (1) H/O shoulder surgery (2) History of dental surgery (3) S/p closure of anal fissure (4) S/p kidney stone removal (5) S/p placement of Patten catheter (6) Status post debridement Family History Cancer Diabetes mellitus Heart disease Hypertension Social History Smoking Status: Never Smoker Alcohol Use: none Drug Use: none Marital Status: Housing Status: lives with family Occupation Status: employed Current/Historical Medications Scheduled Daptomycin (Daptomycin), 585 MG IV DAILY Gabapentin (Gabapentin), 600 MG PO TID Oxycodone Hcl (Oxycodone Hcl Er), 10 MG PO Q12 Piperacillin Sodium-Tazobactam (Zosyn), 3.375 GM IV Q6HWA Scheduled PRN Oxycodone Hcl (Oxycodone Hcl), 10 MG PO Q6 PRN for Pain Allergies Coded Allergies: Iodinated Diagnostic Agents (Verified Allergy, Severe, anaphylaxis, ) Levofloxacin (Verified Allergy, Intermediate, RASH, 12/13/16) Patient received Levaquin during a previous admission (2013) but now has a rash with current administration of IV Levaquin Ciprofloxacin (Verified Allergy, Mild, RASH, 12/13/16) Morphine (Verified Allergy, Unknown, hives, 12/13/16) Physical Exam Vital Signs Date Time Temp Pulse Resp B/P (MAP) Pulse Ox O2 Delivery O2 Flow Rate FiO2 12/13/16 00:55 37.2 90 20 153/102 97 Room Air 12/12/16 23:05 36.9 111 22 150/84 98 Room Air Pain Rating (0-10): 4.0 Physical Exam VITALS: Vitals are noted on the nurse's note and reviewed by myself. Vital signs stable. GENERAL: This is a 41-year-old male, in no acute distress, nondiaphoretic, well- developed well-nourished. HEART: Regular rate and rhythm without murmurs gallops or rubs. LUNGS: Clear to auscultation bilaterally without wheezes, rales or rhonchi. MUSCULOSKELETAL: There is a surgical scar over the anterior right shoulder which is erythematous and indurated. There is no drainage. There is significant limitation in range of motion of the right shoulder. Radial pulses 2+. NEURO: Patient was alert and oriented to person place and time. Normal sensation to light and sharp touch. Medical Decision & Procedures ER Provider Diagnostic Interpretation: Chest X-ray: No consolidation. No acute cardiopulmonary abnormality. Laboratory Results 12/12/16 23:40 Red Blood Count 5.00, Mean Corpuscular Volume 77.2, Mean Corpuscular Hemoglobin 23.2, Mean Corpuscular Hemoglobin Concent 30.1, Mean Platelet Volume 10.3, Neutrophils (%) (Auto) 63.6, Lymphocytes (%) (Auto) 18.3, Monocytes (%) (Auto) 7.7, Eosinophils (%) (Auto) 9.7, Basophils (%) (Auto) 0.5, Neutrophils # (Auto) 6.04, Lymphocytes # (Auto) 1.74, Monocytes # (Auto) 0.73, Eosinophils # (Auto) 0.92, Basophils # (Auto) 0.05 12/12/16 23:40 Test 12/12/16 23:40 12/12/16 23:53 White Blood Count 9.50 K/uL (4.8-10.8) Red Blood Count 5.00 M/uL (4.7-6.1) Hemoglobin 11.6 g/dL (14.0-18.0) Hematocrit 38.6 % (42-52) Mean Corpuscular Volume 77.2 fL (80-100) Mean Corpuscular Hemoglobin 23.2 pg (25-34) Mean Corpuscular Hemoglobin Concent 30.1 g/dl (32-36) Platelet Count 306 K/uL (130-400) Mean Platelet Volume 10.3 fL (7.4-10.4) Neutrophils (%) (Auto) 63.6 % Lymphocytes (%) (Auto) 18.3 % Monocytes (%) (Auto) 7.7 % Eosinophils (%) (Auto) 9.7 % Basophils (%) (Auto) 0.5 % Neutrophils # (Auto) 6.04 K/uL (1.4-6.5) Lymphocytes # (Auto) 1.74 K/uL (1.2-3.4) Monocytes # (Auto) 0.73 K/uL (0.11-0.59) Eosinophils # (Auto) 0.92 K/uL (0-0.5) Basophils # (Auto) 0.05 K/uL (0-0.2) RDW Standard Deviation 48.2 fL (36.4-46.3) RDW Coefficient of Variation 17.1 % (11.5-14.5) Immature Granulocyte % (Auto) 0.2 % Immature Granulocyte # (Auto) 0.02 K/uL (0.00-0.02) Erythrocyte Sedimentation Rate 14 mm/hr (0-14) Anion Gap 7.0 mmol/L (3-11) Est Creatinine Clear Calc Drug Dose 75.0 ml/min Estimated GFR () 97.5 Estimated GFR (Non- 84.1 BUN/Creatinine Ratio 9.5 (10-20) Calcium Level 8.2 mg/dl (8.5-10.1) Total Bilirubin 0.5 mg/dl (0.2-1) Aspartate Amino Transf (AST/SGOT) 24 U/L (15-37) Alanine Aminotransferase (ALT/SGPT) 43 U/L (12-78) Alkaline Phosphatase 130 U/L (45-117) C-Reactive Protein 4.69 mg/dl (0-0.29) Total Protein 7.1 gm/dl (6.4-8.2) Albumin 3.4 gm/dl (3.4-5.0) Globulin 3.7 gm/dl (2.5-4.0) Albumin/Globulin Ratio 0.9 (0.9-2) Bedside Lactic Acid Venous 1.36 mmol/L (0.90-1.70) Medications Administered Medications (Trade) Dose Ordered Sig/Diane Route Start Time Stop Time Status Last Admin Dose Admin Sodium Chloride 1,000 ml @ 999 mls/hr Q1H1M STAT IV 12/12/16 23:28 12/13/16 00:28 DC 12/12/16 23:28 999 MLS/HR Acetaminophen (Tylenol Tab) 1,000 mg NOW STAT PO 12/13/16 01:07 12/13/16 01:09 DC 12/13/16 01:15 1,000 MG Ondansetron HCl (Zofran Inj) 4 mg NOW STAT IV 12/13/16 01:07 12/13/16 01:09 DC 12/13/16 01:15 4 MG Oxycodone HCl (Roxicodone Immediate Rel Tab) 10 mg NOW STAT PO 12/13/16 01:25 12/13/16 01:26 DC 12/13/16 01:30 10 MG ED Course The patient was evaluated as above. Labs were drawn and IV access was obtained. Patient was medicated with 1 L normal saline solution. Patient requested something for pain and was given 1 g Tylenol and 4 mg Zofran IV. The patient requested his evening pain medication and was given his typical dose of 10 mg oxycodone. Case was discussed with the [facility] hospitalist, Dr. Wolff. They agreed to evaluate the patient for admission. Medical Decision Differential diagnosis includes cellulitis, abscess, sepsis, septic joint, among others. The patient is a 41-year-old male who presents today complaining of right shoulder pain and redness. The patient has had multiple infections in the past. He has been on IV antibiotics intermittently for the past several years. He is currently on Zosyn and daptomycin. Clinically, he does appear to have an infection with erythema and induration over the anterior shoulder. Labs do not reveal a leukocytosis or elevation of the lactic acid. CRP is elevated at 4.69. He is afebrile at this time but has reported subjective fevers at home. The patient does not appear to be septic at this time, but I do feel he needs to be admitted due to failed there be on Zosyn and daptomycin. Blood cultures are pending. Patient will be [facility] by [facility] service for further care. The patient's case was reviewed with Dr. Ochoa, ED attending physician, who agreed with my assessment and treatment plan. Medication reconciliation: I attest that I have personally reviewed the patient 's current medication list. Blood pressure screening: Patient was found to have an elevated blood pressure and was referred to their primary care provider for recheck and further treatment. [place] Drug [place] Search Results: patient reviewed within database Impression Primary Impression: Right shoulder pain Additional Impression: Cellulitis of shoulder Departure Information Dispostion Still a Patient Condition FAIR Referrals Jose Bailey MD (PCP) Forms WORK / SCHOOL INSTRUCTIONS, HOME CARE DOCUMENTATION FORM, IMPORTANT VISIT INFORMATION Patient Instructions My [facility] Problem Qualifiers
[2016-12-13] MEDS ORDERED: DAPTOmycin 500 MG VIAL IV SCH (08:00)
[2016-12-13] MEDS: SODIUM CHLORIDE 0.9% IV SCH (08:12)
[2016-12-13] MEDS: DAPTOMYCIN IV SCH (08:12)
[2016-12-13] MEDS: GABAPENTIN 600 MG TAB PO SCH ×3 (08:12→20:22)
[2016-12-13] MEDS: OXYCODONE HCL 10 MG TABCR (OXYCONTIN) PO SCH ×2 (08:15→20:24)
[2016-12-13 08:22] VITALS: BP 127/78; PULSE 82; TEMP 36.8; O2SAT 97
[2016-12-13] MEDS: PIPERACILL/TAZOBAC IV 3.375 GM in DEXTROSE 5% 100ML IV SCH ×2 (09:18→15:58)
[2016-12-13 10:48] LABS: HEMATOCRIT 35.7 % (42-52); MEAN CELL VOLUME 78.3 fL (80-100); MEAN CORPUSCULAR HEMOGLOBIN 24.3 pg (25-34); MEAN CORPUSCULAR HGB CONC 31.1 g/dl (32-36); MEAN PLATELET VOLUME 9.7 fL (7.4-10.4); PLATELET COUNT 240 K/uL (130-400); RED BLOOD COUNT 4.56 M/uL (4.7-6.1); WHITE BLOOD COUNT 7.05 K/uL (4.8-10.8)
[2016-12-13 11:21] LABS: CALCIUM 7.9 mg/dl (8.5-10.1)
[2016-12-13 11:25] LABS: BUN/CREATININE RATIO 8.6 (10-20); CREATININE 0.96 mg/dl (0.60-1.40); POTASSIUM 3.1 mmol/L (3.5-5.1)
--- NOTE | 2016-12-13 11:25 | Medical Consult ---
Consultation Date of Consultation: Dec 13, 2016. Attending Physician: Garcia Garcia MD Reason for Consultation: Right shoulder infection History of Present Illness Patient is a 41 yo male with extensive history of infection well known to the ID service who presented to the ED [facility] concerns of erythema, edema, and pain of the right shoulder. The patient has had many shoulder surgeries for concern of infection and has had polymicrobial infection with VRE, Proteus, MRSA, anaerobes, etc. He has had both shoulder infection and bloodstream infection in the past and has been on IV abx therapy for an extended period of time. He most recently has been on IV Daptomycin and Zosyn as an outpatient for many weeks. The patient does also have history of chronic diarrhea while on abx therapy. The patient states that he was having subjective fever, sweats, and chills at home 1 day [employer]. He noted the increasing shoulder symptoms about 2 days [employer]. Since current admission, the patient had a CXR which showed no acute process. His WBC count is 9.50. ESR was 14, and CRP was 4.69. His creatinine is stable at 1.10. Blood cultures are pending. He is currently on IV Daptomycin and Zosyn. 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 Past Medical/Surgical History Medical Problems: (1) Abscess of right arm Status: Acute (2) Cellulitis of shoulder Status: Acute (3) Cellulitis of shoulder Status: Acute (4) Fever Status: Acute (5) Hypotension Status: Acute (6) Infection of shoulder Status: Acute (7) Right arm cellulitis Status: Acute (8) Sepsis Status: Acute (9) Sepsis Status: Acute (10) Sepsis Status: Acute (11) Septic arthritis of shoulder, right Status: Acute (12) Septic joint of right shoulder region Status: Acute (13) Shoulder pain Status: Acute Medical Problems: (1) Cellulitis of shoulder (2) Direct infection of right shoulder in infectious and parasitic diseases classified elsewhere (3) History of MRSA infection (4) Peripheral neuropathy (5) Right shoulder pain (6) Sepsis Surgical Problems: (1) H/O shoulder surgery (2) History of dental surgery (3) S/p closure of anal fissure (4) S/p kidney stone removal (5) S/p placement of Patten catheter (6) Status post debridement Family History Cancer Diabetes mellitus Heart disease Hypertension Noncontributory Social History Smoking Status: Never Smoker Drug Use: none Marital Status: Housing Status: lives with family Occupation Status: employed Allergies Coded Allergies: Iodinated Diagnostic Agents (Verified Allergy, Severe, anaphylaxis, ) Levofloxacin (Verified Allergy, Intermediate, RASH, 12/13/16) Patient received Levaquin during a previous admission (2013) but now has a rash with current administration of IV Levaquin Ciprofloxacin (Verified Allergy, Mild, RASH, 12/13/16) Morphine (Verified Allergy, Unknown, hives, 12/13/16) Home Medications Reported Home Medications Medications Dose Route/Sig Max Daily Dose Days Date Category Gabapentin 600 Mg Tab 600 Mg PO TID 12/13/16 Reported Oxycodone Hcl 10 Mg Tab 10 Mg PO Q6 PRN 12/13/16 Reported Oxycodone Hcl Er (Oxycodone Hcl) 10 Mg Tab 10 Mg PO Q12 12/13/16 Reported Daptomycin 500 Mg Inj 585 Mg IV DAILY 09/29/16 Rx Zosyn (Piperacillin Sodium-Tazobactam) 1 Inj Inj 3.375 Gm IV Q6HWA 09/29/16 Rx Current Inpatient Medications Current Inpatient Medications Medications (Trade) Dose Ordered Sig/Diane Route Start Time Stop Time Status Last Admin Dose Admin Gabapentin (Neurontin Tab) 600 mg TID PO 12/13/16 08:00 01/12/17 08:59 12/13/16 08:12 600 MG Oxycodone HCl (Oxycontin Tab) 10 mg Q12H PO 12/13/16 09:00 12/27/16 08:59 12/13/16 08:15 10 MG Oxycodone HCl (Roxicodone Immediate Rel Tab) 10 mg Q6 PRN PO 12/13/16 03:15 01/12/17 03:14 12/13/16 06:25 10 MG Diphenhydramine HCl (Benadryl Cap) 25 mg Q12 PRN PO 12/13/16 03:15 01/12/17 03:14 Sodium Chloride 1,000 ml @ 100 mls/hr Q10H IV 12/13/16 06:15 12/13/16 16:14 12/13/16 06:26 100 MLS/HR Daptomycin 585 mg/ Sodium Chloride 61.7 ml @ 120 mls/hr Q24H IV 12/13/16 08:00 12/23/16 07:59 12/13/16 08:12 120 MLS/HR Piperacillin Sod/ Tazobactam Sod 3.375 gm/Dextrose 115 ml @ 28.75 mls/ hr Q8H IV 12/13/16 09:00 12/23/16 08:59 12/13/16 09:18 28.75 MLS/HR Piperacillin Sod/ Tazobactam Sod (Consult) 1 ea UD PRN N/A 12/13/16 07:00 01/12/17 06:59 Hydromorphone HCl (Dilaudid Inj) 0.5 mg Q3HWA PRN IV 12/13/16 10:15 12/27/16 10:14 Review of Systems Constitutional: + fever, + chills, + sweats, + fatigue Eyes: No worsening of vision ENT: No hearing loss Respiratory: No cough, No shortness of breath Cardiovascular: No chest pain Abdomen: + diarrhea, No pain, No nausea, No vomiting Musculoskeletal: + joint pain (right shoulder), + swelling Genitourinary - Male: No hematuria, No dysuria, No urinary frequency, No urinary urgency Neurologic: + numbness/tingling (right arm) Integumentary: + color change (erythema around right shoulder incision), No rash, No itch Physical Exam Date Time Temp Pulse Resp B/P (MAP) Pulse Ox O2 Delivery O2 Flow Rate FiO2 12/13/16 09:25 Room Air 12/13/16 08:22 36.8 82 16 127/78 (94) 97 Room Air 12/13/16 03:50 36.7 93 18 160/99 98 Room Air 12/13/16 03:36 37.2 92 18 112/64 94 12/13/16 03:32 92 18 112/64 94 Room Air 12/13/16 00:55 37.2 90 20 153/102 97 Room Air 12/12/16 23:05 36.9 111 22 150/84 98 Room Air General Appearance: WD/WN, + mild distress (pain) Head: normocephalic, atraumatic Eyes: normal inspection, sclerae normal ENT: hearing grossly normal Neck: supple, trachea midline Respiratory/Chest: chest non-tender, lungs clear, normal breath sounds, no respiratory distress, no accessory muscle use, + pertinent finding (right subclavian line in place) Cardiovascular: regular rate, rhythm Abdomen/GI: normal bowel sounds, non tender, soft Extremities/Musculoskelatal: + swelling, + pertinent finding (right shoulder with moderate edema and right proximal extremity with moderate edema as well. Tenderness to light palpation) Neurologic/Psych: alert, + depressed affect Skin: warm/dry, no rash, + pertinent finding (mild erythema surrounding the right shoulder surgical scar. Small, pinpoint pustule on the right shoulder- no drainage) Laboratory Results CHEST ONE VIEW PORTABLE CLINICAL HISTORY: sepsis dyspnea COMPARISON STUDY: 09/20/2016 FINDINGS: The bones soft tissues and hemidiaphragms are normal. The cardiomediastinal silhouette is normal. The lungs are clear. The pulmonary vasculature is normal. IMPRESSION: Negative chest. Item Value Date Time Blood Culture Received 12/12/164 Blood Pending Blood Culture Received 12/12/162343 Blood Pending Last 24 Hours Test 12/12/16 23:40 12/12/16 23:53 12/13/16 10:24 White Blood Count 9.50 K/uL 7.05 K/uL Red Blood Count 5.00 M/uL 4.56 M/uL Hemoglobin 11.6 g/dL 11.1 g/dL Hematocrit 38.6 % 35.7 % Mean Corpuscular Volume 77.2 fL 78.3 fL Mean Corpuscular Hemoglobin 23.2 pg 24.3 pg Mean Corpuscular Hemoglobin Concent 30.1 g/dl 31.1 g/dl Platelet Count 306 K/uL 240 K/uL Mean Platelet Volume 10.3 fL 9.7 fL Neutrophils (%) (Auto) 63.6 % Lymphocytes (%) (Auto) 18.3 % Monocytes (%) (Auto) 7.7 % Eosinophils (%) (Auto) 9.7 % Basophils (%) (Auto) 0.5 % Neutrophils # (Auto) 6.04 K/uL Lymphocytes # (Auto) 1.74 K/uL Monocytes # (Auto) 0.73 K/uL Eosinophils # (Auto) 0.92 K/uL Basophils # (Auto) 0.05 K/uL RDW Standard Deviation 48.2 fL 49.2 fL RDW Coefficient of Variation 17.1 % 17.3 % Immature Granulocyte % (Auto) 0.2 % Immature Granulocyte # (Auto) 0.02 K/uL Erythrocyte Sedimentation Rate 14 mm/hr Sodium Level 139 mmol/L Potassium Level 3.3 mmol/L Chloride Level 104 mmol/L Carbon Dioxide Level 28 mmol/L Anion Gap 7.0 mmol/L Blood Urea Nitrogen 10 mg/dl Creatinine 1.10 mg/dl Est Creatinine Clear Calc Drug Dose 75.0 ml/min Estimated GFR () 97.5 Estimated GFR (Non- 84.1 BUN/Creatinine Ratio 9.5 Random Glucose 124 mg/dl Calcium Level 8.2 mg/dl Total Bilirubin 0.5 mg/dl Aspartate Amino Transf (AST/SGOT) 24 U/L Alanine Aminotransferase (ALT/SGPT) 43 U/L Alkaline Phosphatase 130 U/L C-Reactive Protein 4.69 mg/dl Total Protein 7.1 gm/dl Albumin 3.4 gm/dl Globulin 3.7 gm/dl Albumin/Globulin Ratio 0.9 Bedside Lactic Acid Venous 1.36 mmol/L Assessment & Plan Patient with history of multiple blood stream and right shoulder infections now with right shoulder cellulitis, edema, and potential underlying abscess. Orthopedic evaluation pending. Patient is currently on IV Zosyn and Daptomycin, and with history of Imipenem resistance, will continue current therapy pending further workup. He very likely will need repeat MRI versus CT scan of the right shoulder. We will follow. Case reviewed and agree with above assessment.
[2016-12-13 15:12] VITALS: BP 122/73; PULSE 79; TEMP 37; O2SAT 94
[2016-12-13] MEDS ORDERED: POTASSIUM CHLORIDE 10 MEQ TABCR PO ONE (15:30)
[2016-12-13 16:00] VITALS: O2SAT 94
--- NOTE | 2016-12-13 17:12 | Progress Note ---
Internal Med Progress Note Date of Service: Dec 13, 2016. Provider Documentation: SUBJECTIVE: complains of pain and swelling in right shoulder area afebrile requesting for breakthrough pain and Benadryl for itching no nausea OBJECTIVE: Vital Signs-as noted below Exam: General-alert and oriented. Not in distress ENT-normal hearing Neck-no neck masses Lungs-cta b/l no wheezing or crackles Heart-s1 and s2 heard regular no murmurs Abdomen-soft bowel sounds present nontender no distension Extremities-no edema no erythema Musculoskeletal Erythema in right shoulder area Neuro-alert and oriented moves extremities Lab data as noted below. ASSESSMENT & PLAN: Right Shoulder pain, Redness and Swelling Recurrent admission for right shoulder infections Has been on Zosyn and Dapto Continue IV abx Appreciate ID inputs await ortho recommendations CHRONIC / ACUTE PAIN Chronic pain due to right shoulder pathology. [place] PDMP database reviewed by Received Oxycontin 20 mg # 60 and oxycodone 10 mg # 120 on 12/10/16. IV hydromorphone PRN for severe uncontrolled pain. HYPOKALEMIA K replaced Monitor BMP VTE PROPHYLAXIS SCD's. Ambulate. DISPOSITION to be determined Vital Signs: Date Time Temp Pulse Resp B/P (MAP) Pulse Ox O2 Delivery O2 Flow Rate FiO2 12/13/16 16:00 94 Room Air 12/13/16 15:12 37.0 79 16 122/73 (89) 94 12/13/16 09:25 Room Air 12/13/16 08:22 36.8 82 16 127/78 (94) 97 Room Air 12/13/16 03:50 36.7 93 18 160/99 98 Room Air 12/13/16 03:36 37.2 92 18 112/64 94 12/13/16 03:32 92 18 112/64 94 Room Air 12/13/16 00:55 37.2 90 20 153/102 97 Room Air 12/12/16 23:05 36.9 111 22 150/84 98 Room Air Lab Results: Results Past 24 Hours Test 12/12/16 23:40 12/12/16 23:53 12/13/16 10:24 Range/Units White Blood Count 9.50 7.05 4.8-10.8 K/uL Red Blood Count 5.00 4.56 4.7-6.1 M/uL Hemoglobin 11.6 11.1 14.0-18.0 g/dL Hematocrit 38.6 35.7 42-52 % Mean Corpuscular Volume 77.2 78.3 80-100 fL Mean Corpuscular Hemoglobin 23.2 24.3 25-34 pg Mean Corpuscular Hemoglobin Concent 30.1 31.1 32-36 g/dl Platelet Count 306 240 130-400 K/uL Mean Platelet Volume 10.3 9.7 7.4-10.4 fL Neutrophils (%) (Auto) 63.6 % Lymphocytes (%) (Auto) 18.3 % Monocytes (%) (Auto) 7.7 % Eosinophils (%) (Auto) 9.7 % Basophils (%) (Auto) 0.5 % Neutrophils # (Auto) 6.04 1.4-6.5 K/uL Lymphocytes # (Auto) 1.74 1.2-3.4 K/uL Monocytes # (Auto) 0.73 0.11-0.59 K/uL Eosinophils # (Auto) 0.92 0-0.5 K/uL Basophils # (Auto) 0.05 0-0.2 K/uL RDW Standard Deviation 48.2 49.2 36.4-46.3 fL RDW Coefficient of Variation 17.1 17.3 11.5-14.5 % Immature Granulocyte % (Auto) 0.2 % Immature Granulocyte # (Auto) 0.02 0.00-0.02 K/uL Erythrocyte Sedimentation Rate 14 0-14 mm/hr Sodium Level 139 141 136-145 mmol/L Potassium Level 3.3 3.1 3.5-5.1 mmol/L Chloride Level 104 105 98-107 mmol/L Carbon Dioxide Level 28 29 21-32 mmol/L Anion Gap 7.0 7.0 3-11 mmol/L Blood Urea Nitrogen 10 8 7-18 mg/dl Creatinine 1.10 0.96 0.60-1.40 mg/dl Est Creatinine Clear Calc Drug Dose 75.0 118.9 ml/min Estimated GFR () 97.5 114.9 Estimated GFR (Non- 84.1 99.2 BUN/Creatinine Ratio 9.5 8.6 10-20 Random Glucose 124 101 70-99 mg/dl Calcium Level 8.2 7.9 8.5-10.1 mg/dl Total Bilirubin 0.5 0.2-1 mg/dl Aspartate Amino Transf (AST/SGOT) 24 15-37 U/L Alanine Aminotransferase (ALT/SGPT) 43 12-78 U/L Alkaline Phosphatase 130 45-117 U/L C-Reactive Protein 4.69 0-0.29 mg/dl Total Protein 7.1 6.4-8.2 gm/dl Albumin 3.4 3.4-5.0 gm/dl Globulin 3.7 2.5-4.0 gm/dl Albumin/Globulin Ratio 0.9 0.9-2 Bedside Lactic Acid Venous 1.36 0.90-1.70 mmol/L Microbiology Results 12/12/16 Blood Culture, Received Pending 12/12/16 Blood Culture, Received Pending
[2016-12-13] MEDS: HYDROmorphone INJ 0.5 MG/0.5 ML SYR IV PRN ×2 (18:34→21:36)
--- NOTE | 2016-12-13 20:53 | ORTHOPEDIC CONSULTATION ---
DATE OF CONSULTATION: 12/13/2016 HISTORY OF PRESENT ILLNESS: The patient is a 41-year-old male, who is known to our practice. He has a long history of multiple infections in his right shoulder. He had abscesses drained from his lateral shoulder area. Most recently, he has been on IV daptomycin and Zosyn. He currently has a Patten catheter in place. He had VRE, proteus, MRSA, other organisms including E. coli. He was in his usual state of health and had increasing redness of his right shoulder over the last 2 days and there is a pimple noted there anterior to his incision. CURRENT MEDICATIONS: Include gabapentin, oxycodone 10 mg p.o. q.6 hours, and oxycodone extended-release 10 mg p.o. q. 12 hours. He is also on Zosyn and daptomycin. Dilaudid IV. ALLERGIES: HE HAS ALLERGIES TO CIPROFLOXACIN, LEVOFLOXACIN, IODINATED DIAGNOSTIC AGENTS AND MORPHINE. PHYSICAL EXAMINATION: Demonstrates that his right shoulder has an old scar from prior surgery. There was edema anterior to the scar and has some surrounding erythema around that area. There is no drainage from the incision. There is a pustule noted in this area of erythema and edematous tissue. NEUROLOGICAL: Intact. His range of motion is unchanged from prior exams. You can see his previous dictations for his range of motion status. Basically, he has limited range of motion below chest level. Circulation distally, all intact. IMAGING DATA: No new imaging of the shoulder was obtained at this admission so far. ASSESSMENT: Possible recurrent abscess, right shoulder. History of multiple incisions and drainages of abscesses, right shoulder with resistant organisms. Atypical response to antibiotic treatment and previous incisions and drainages of his shoulder. Also noted, his white count presently 7, ESR 14. Blood cultures pending and the patient is afebrile. The area of the pustule was expressed and pus was expressed out of this pimple area. I did culture the pus for aerobic and anaerobic cultures. I did express some pus out of this area and this appeared to be consistent with a carbuncle or subcutaneous-type abscess. I cannot tell the size of the abscess. It was only a small amount of pus that was able to be expressed out from this area. At this point, a sterile dressing was applied. We will order an ultrasound to see if there is a more extensive abscess that is going to require draining otherwise, await cultures and treat him with appropriate antibiotics. He may need further MRI imaging compared to prior MRIs to assess for deeper infection and if the ultrasound is nondiagnostic. MARYD
--- NOTE | 2016-12-13 22:22 | DIAGNOSTIC IMAGING REPORT ---
SOFT TISSUE ULTRASOUND THE RIGHT SHOULDER CLINICAL HISTORY: Right shoulder pain. Drainage. Possible deep abscess. COMPARISON STUDY: MRI dated 09/19/2016 FINDINGS: There are postsurgical changes present. There is a prominent scar. There is mild edema within the soft tissues surrounding the scar. There are no fluid collections to indicate an abscess. IMPRESSION: Postsurgical change. Soft tissue edema. No ultrasonographic evidence of a focal abscess Electronically signed by: Daniel Cole M.D. 12/13/2016 10:20 PM Dictated Date/Time: 12/13/2016 10:19 PM
[2016-12-13 23:04] VITALS: BP 112/74; PULSE 87; TEMP 37.1; O2SAT 97
[2016-12-14] MEDS: PIPERACILL/TAZOBAC IV 3.375 GM in DEXTROSE 5% 100ML IV SCH ×3 (00:59→17:28)
[2016-12-14] MEDS: HYDROmorphone INJ 0.5 MG/0.5 ML SYR IV PRN ×6 (01:09→22:03)
[2016-12-14 06:19] LABS: CREATININE 1.1 mg/dl (0.60-1.40)
[2016-12-14 08:45] VITALS: BP 115/72; PULSE 93; TEMP 36.7; O2SAT 96
[2016-12-14] MEDS: DAPTOMYCIN IV SCH (08:50)
[2016-12-14] MEDS: SODIUM CHLORIDE 0.9% IV SCH (08:50)
[2016-12-14] MEDS: OXYCODONE HCL 10 MG TABCR (OXYCONTIN) PO SCH ×2 (08:51→20:49)
[2016-12-14] MEDS: OXYCODONE HCL IR 5 MG TAB (IMMEDIATE RELEASE) PO PRN ×3 (08:52→23:51)
[2016-12-14] MEDS: GABAPENTIN 600 MG TAB PO SCH ×3 (08:53→20:48)
--- NOTE | 2016-12-14 14:39 | Orthopedic Progress Note ---
Orthopedic Progress Note Date of Service Dec 14, 2016. Subjective Additional Notes: Pt awake, alert. No new complaints. States the RUE is about the same. No worse. Objective N/V intact, capillary refill less than 2 sec., A&O x3 Scar area at the shoulder with erythema. Tenderness noted in this area and medial to shoulder. Continues with limited ROM right shoulder. He states it might be a little more stiff than before. Date Time Temp Pulse Resp B/P (MAP) Pulse Ox O2 Delivery O2 Flow Rate FiO2 12/14/16 10:47 Room Air 12/14/16 08:45 36.7 93 18 115/72 (86) 96 Room Air 12/14/16 02:00 Room Air 12/13/16 23:04 37.1 87 18 112/74 (87) 97 Room Air 12/13/16 20:00 Room Air 12/13/16 16:00 94 Room Air 12/13/16 15:12 37.0 79 16 122/73 (89) 94 Laboratory Results 24 Hours: RUN DATE: 12/14/16 [facility] LAB PAGE 1 RUN TIME: 1421 Specimen Inquiry PATIENT: LENNYODALYS Poole LOC: Jose # : [id number] AGE/SX: 41/M ROOM: E410 REG : 12/13/[address]: Garcia Garcia MD : [id number] BED: 1 DIS : STATUS: ADM IN TLOC: SPEC #: [id number] RANDA: 12/13/16 STATUS: RES REQ #: [id number] RECD: 12/13/[address] [facility] [address]: Kenan Byrd M.D. SOURCE: DRAIN-SURF ENTR: 12/13/[address]: Jose Bailey MD [facility]: Yasmany SPANGLER Wilkerson, M.D. Palepu, Rajendra P., MD ORDERED: SURF WND [facility] COMMENTS: Specimen Comment pus from expressed pimple /small boil,abscess Has Specimen Been Obtained/Collected? Y Procedure Result Verified Site GRAM STAIN Final 12/14/16 RESULT MODERATE WBCs SEEN NO ORGANISMS SEEN SURFACE WOUND CULTURE Preliminary 12/14/16 PIN-POINT GROWTH PRESENT, REINCUBATING. DIAGNOSTIC IMAGING [~ rep ct add3]] SOFT TISSUE ULTRASOUND THE RIGHT SHOULDER CLINICAL HISTORY: Right shoulder pain. Drainage. Possible deep abscess. COMPARISON STUDY: MRI dated 09/19/2016 FINDINGS: There are postsurgical changes present. There is a prominent scar. There is mild edema within the soft tissues surrounding the scar. There are no fluid collections to indicate an abscess. IMPRESSION: Postsurgical change. Soft tissue edema. No ultrasonographic evidence of a focal abscess Assessment & Plan Assessment: h/o chronic infection right shoulder ? Myositis Plan: With no fluid collections noted on US, plan to watch over the next few days. If patient worsens or is not getting any better, plan for MRI of the shoulder. Continue IV antibx as per ID Team
[2016-12-14 16:00] VITALS: O2SAT 96
[2016-12-14 16:04] VITALS: BP 120/72; PULSE 89; TEMP 36.6; O2SAT 97
--- NOTE | 2016-12-14 16:47 | Infectious Disease Progress Nt ---
Progress Note Date of Service Dec 14, 2016. Subjective Pt evaluation today including: conversation w/ patient, physical exam, chart review, lab review, review of studies, review of inpatient medication list Patient feels that he has had very little improvement today. It was noted that orthopedic evaluated the patient and did express some mild purulence from a pustule on his shoulder. Wound culture was taken from that area and is pending. Blood cultures are showing no growth today. White blood cell count today was 7.05. His creatinine was stable at 1.10. He did have an ultrasound of the right shoulder which showed soft tissue edema, but no focal abscess. He continues on IV daptomycin and Zosyn. All Other Systems: Reviewed and Negative Medications Current Inpatient Medications Medications (Trade) Dose Ordered Sig/Diane Route Start Time Stop Time Status Last Admin Dose Admin Gabapentin (Neurontin Tab) 600 mg TID PO 12/13/16 08:00 01/12/17 08:59 12/14/16 14:01 600 MG Oxycodone HCl (Oxycontin Tab) 10 mg Q12H PO 12/13/16 09:00 12/27/16 08:59 12/14/16 08:51 10 MG Oxycodone HCl (Roxicodone Immediate Rel Tab) 10 mg Q6 PRN PO 12/13/16 03:15 01/12/17 03:14 12/14/16 08:52 10 MG Daptomycin 585 mg/ Sodium Chloride 61.7 ml @ 120 mls/hr Q24H IV 12/13/16 08:00 12/23/16 07:59 12/14/16 08:50 120 MLS/HR Piperacillin Sod/ Tazobactam Sod 3.375 gm/Dextrose 115 ml @ 28.75 mls/ hr Q8H IV 12/13/16 09:00 12/23/16 08:59 12/14/16 10:00 28.75 MLS/HR Piperacillin Sod/ Tazobactam Sod (Consult) 1 ea UD PRN N/A 12/13/16 07:00 01/12/17 06:59 Hydromorphone HCl (Dilaudid Inj) 0.5 mg Q3HWA PRN IV 12/13/16 10:15 12/27/16 10:14 12/14/16 14:02 0.5 MG Heparin Sodium (Porcine) (Heparin 10 Unit/ ml 5 ml Flush) 5 ml PRN PRN FLUSH 12/14/16 01:30 01/13/17 01:29 12/14/16 05:30 5 ML Diphenhydramine HCl (Benadryl Inj) 25 mg TID PRN IV 12/14/16 15:15 01/13/17 15:14 Objective Vital Signs Date Time Temp Pulse Resp B/P (MAP) Pulse Ox O2 Delivery O2 Flow Rate FiO2 12/14/16 16:04 36.6 89 18 120/72 (88) 97 Room Air 12/14/16 10:47 Room Air 12/14/16 08:45 36.7 93 18 115/72 (86) 96 Room Air 12/14/16 02:00 Room Air 12/13/16 23:04 37.1 87 18 112/74 (87) 97 Room Air 12/13/16 20:00 Room Air Physical Exam General Appearance: WD/WN, + mild distress (pain) Eyes: normal inspection, sclerae normal ENT: hearing grossly normal Neck: supple, trachea midline Respiratory/Chest: no respiratory distress, no accessory muscle use Cardiovascular: + tachycardia Extremities: + pertinent finding (mild edema of the right upper arm and shoulder. Improved compared to yesterday. Continued mild tenderness. Also improved) Neurologic/Psychiatric: alert, normal mood/affect Skin: warm/dry, no rash, + pertinent finding (Continued mild erythema of the right shoulder wound- regressed from yesterday) Laboratory Results SOFT TISSUE ULTRASOUND THE RIGHT SHOULDER CLINICAL HISTORY: Right shoulder pain. Drainage. Possible deep abscess. COMPARISON STUDY: MRI dated 09/19/2016 FINDINGS: There are postsurgical changes present. There is a prominent scar. There is mild edema within the soft tissues surrounding the scar. There are no fluid collections to indicate an abscess. IMPRESSION: Postsurgical change. Soft tissue edema. No ultrasonographic evidence of a focal abscess Item Value Date Time Gram Stain - Final Resulted 12/13/16 1845 Drainage - Surface Arm , Right Upper Blood Culture - Preliminary Resulted 12/12/16 2344 Blood NO GROWTH TO DATE. Blood Culture - Preliminary Resulted 12/12/16 2344 Blood NO GROWTH TO DATE. Last 24 Hours Test 12/14/16 05:30 Creatinine 1.10 mg/dl Est Creatinine Clear Calc Drug Dose 103.8 ml/min Estimated GFR () 97.5 Estimated GFR (Non- 84.1 Total Creatine Kinase 47 U/L Assessment and Plan Patient with history of multiple blood stream and right shoulder infections now with right shoulder cellulitis, edema, and potential underlying abscess. Wound culture pending. Patient is currently on IV Zosyn and Daptomycin, and with history of Imipenem resistance, will continue current therapy pending culture. He may need repeat MRI versus CT scan of the right shoulder- will defer to ortho. We will follow. Case reviewed and agree with above assessment.
--- NOTE | 2016-12-14 17:18 | Progress Note ---
Internal Med Progress Note Date of Service: Dec 14, 2016. Provider Documentation: SUBJECTIVE: pain in right shoulder area is ok afebrile requesting for iv Benadryl for itching no nausea eating ok walking in room OBJECTIVE: Vital Signs-as noted below Exam: General-alert and oriented. Not in distress ENT-normal hearing Neck-no neck masses Lungs-cta b/l no wheezing or crackles Heart-s1 and s2 heard regular no murmurs Abdomen-soft bowel sounds present nontender no distension Extremities-no edema no erythema Musculoskeletal Erythema in right shoulder area Neuro-alert and oriented moves extremities Lab data as noted below. ASSESSMENT & PLAN: Right Shoulder pain, Redness and Swelling Recurrent admission for right shoulder infections Has been on Zosyn and Dapto Continue IV abx Appreciate ID inputs Appreciate ortho recommendations CHRONIC / ACUTE PAIN Chronic pain due to right shoulder pathology. [place] database reviewed by Received Oxycontin 20 mg # 60 and oxycodone 10 mg # 120 on 12/10/16. IV hydromorphone PRN for severe uncontrolled pain. Itching with iv abx on benadryl prn HYPOKALEMIA K replaced Monitor BMP VTE PROPHYLAXIS SCD's. Ambulate. DISPOSITION to be determined Vital Signs: Date Time Temp Pulse Resp B/P (MAP) Pulse Ox O2 Delivery O2 Flow Rate FiO2 12/14/16 16:04 36.6 89 18 120/72 (88) 97 Room Air 12/14/16 10:47 Room Air 12/14/16 08:45 36.7 93 18 115/72 (86) 96 Room Air 12/14/16 02:00 Room Air 12/13/16 23:04 37.1 87 18 112/74 (87) 97 Room Air 12/13/16 20:00 Room Air Lab Results: Results Past 24 Hours Test 12/14/16 05:30 Range/Units Creatinine 1.10 0.60-1.40 mg/dl Est Creatinine Clear Calc Drug Dose 103.8 ml/min Estimated GFR () 97.5 Estimated GFR (Non- 84.1 Total Creatine Kinase 47 39-308 U/L Microbiology Results 12/13/16 Gram Stain - Final, Resulted 12/13/16 Wound Culture - Preliminary, Resulted PIN-POINT GROWTH PRESENT, REINCUBATING.
[2016-12-14] MEDS: DiphenhydrAMINE HCL 50 MG/ML VIAL IV PRN (17:29)
[2016-12-14 23:36] VITALS: BP 124/85; PULSE 78; TEMP 36.7; O2SAT 96
[2016-12-15] MEDS: DiphenhydrAMINE HCL 50 MG/ML VIAL IV PRN ×3 (01:12→17:43)
[2016-12-15] MEDS: HYDROmorphone INJ 0.5 MG/0.5 ML SYR IV PRN ×6 (01:12→22:02)
[2016-12-15] MEDS: PIPERACILL/TAZOBAC IV 3.375 GM in DEXTROSE 5% 100ML IV SCH ×3 (01:12→17:43)
[2016-12-15 06:15] LABS: CREATININE 1.1 mg/dl (0.60-1.40)
[2016-12-15 07:11] VITALS: BP 103/63; PULSE 87; TEMP 36.7; O2SAT 94
[2016-12-15] MEDS: OXYCODONE HCL 10 MG TABCR (OXYCONTIN) PO SCH ×2 (08:18→21:10)
[2016-12-15] MEDS: OXYCODONE HCL IR 5 MG TAB (IMMEDIATE RELEASE) PO PRN (08:18)
[2016-12-15] MEDS: GABAPENTIN 600 MG TAB PO SCH ×3 (08:20→19:43)
[2016-12-15] MEDS: SODIUM CHLORIDE 0.9% IV SCH (08:21)
[2016-12-15] MEDS: DAPTOMYCIN IV SCH (08:21)
--- NOTE | 2016-12-15 08:23 | Orthopedic Progress Note ---
Orthopedic Progress Note Date of Service Dec 15, 2016. Subjective Reports: feeling well, pain controlled w PO medications, Denies: complaints, chest pain, SOB, nausea / vomiting, light headedness Objective N/V intact, incision C/D/I, A&O x3 mild erythema around shoulder incisional area no drainage FE to 30 actively due to pain. Date Time Temp Pulse Resp B/P (MAP) Pulse Ox O2 Delivery O2 Flow Rate FiO2 12/15/16 07:11 36.7 87 18 103/63 (76) 94 12/15/16 00:00 Room Air 12/14/16 23:36 36.7 78 19 124/85 (98) 96 Room Air 12/14/16 16:04 36.6 89 18 120/72 (88) 97 Room Air 12/14/16 16:00 96 Room Air 12/14/16 10:47 Room Air 12/14/16 08:45 36.7 93 18 115/72 (86) 96 Room Air Assessment & Plan Assessment: h/o chronic infection right shoulder ? Myositis Plan: With no fluid collections noted on US, plan to watch over the next few days. If patient worsens or is not getting any better, plan for MRI of the shoulder. Continue IV antibx as per ID Team, gram stain neg for organisms, cx w pin point growth noted, await re incubation.
[2016-12-15 14:54] VITALS: BP 121/71; PULSE 77; TEMP 37; O2SAT 96
--- NOTE | 2016-12-15 17:27 | Orthopedic Progress Note ---
Orthopedic Progress Note Date of Service Dec 15, 2016. Subjective Denies: complaints, chest pain, SOB, nausea / vomiting, light headedness, calf pain Additional Notes: Right shoulder pain somewhat improved per patient. Intermittent pain. No fever. Objective N/V intact, capillary refill less than 2 sec., incision C/D/I, A&O x3 Right shoulder w/o drainage or fluctuance. No streaking. DNVSI Date Time Temp Pulse Resp B/P (MAP) Pulse Ox O2 Delivery O2 Flow Rate FiO2 12/15/16 16:00 Room Air 12/15/16 14:54 37.0 77 18 121/71 (88) 96 12/15/16 08:00 Room Air 12/15/16 07:11 36.7 87 18 103/63 (76) 94 12/15/16 00:00 Room Air 12/14/16 23:36 36.7 78 19 124/85 (98) 96 Room Air Assessment & Plan Assessment: h/o chronic recurrent infection right shoulder Improving cellulitis right shoulder Plan: Cont IV anbx Will reassess in AM Consider MRI w/ contrast if symptoms worsen
--- NOTE | 2016-12-15 17:36 | Progress Note ---
Internal Med Progress Note Date of Service: Dec 15, 2016. Provider Documentation: SUBJECTIVE: resting comfortably no diarrhea but has soft stools eating ok afebrile itching is better OBJECTIVE: Vital Signs-as noted below Exam: General-alert and oriented. Not in distress ENT-normal hearing Neck-no neck masses Lungs-cta b/l no wheezing or crackles Heart-s1 and s2 heard regular no murmurs Abdomen-soft bowel sounds present nontender no distension Extremities-no edema no erythema Musculoskeletal Erythema in right shoulder area Neuro-alert and oriented moves extremities Lab data as noted below. ASSESSMENT & PLAN: Right Shoulder pain, Redness and Swelling Recurrent admission for right shoulder infections Has been on Zosyn and Dapto Continue IV abx Appreciate ID inputs Appreciate ortho recommendations if no improvement plan for MRI CHRONIC / ACUTE PAIN Chronic pain due to right [place] pathology. [place] reviewed by Received Oxycontin 20 mg # 60 and oxycodone 10 mg # 120 on 12/10/16. IV hydromorphone PRN for severe uncontrolled pain. continue same Itching with iv abx on Benadryl prn HYPOKALEMIA K replaced Monitor BMP VTE PROPHYLAXIS SCD's. Ambulate. DISPOSITION to be determined Vital Signs: Date Time Temp Pulse Resp B/P (MAP) Pulse Ox O2 Delivery O2 Flow Rate FiO2 12/15/16 16:00 Room Air 12/15/16 14:54 37.0 77 18 121/71 (88) 96 12/15/16 08:00 Room Air 12/15/16 07:11 36.7 87 18 103/63 (76) 94 12/15/16 00:00 Room Air 12/14/16 23:36 36.7 78 19 124/85 (98) 96 Room Air Lab Results: Results Past 24 Hours Test 12/15/16 05:05 Range/Units Creatinine 1.10 0.60-1.40 mg/dl Est Creatinine Clear Calc Drug Dose 103.8 ml/min Estimated GFR () 97.5 Estimated GFR (Non- 84.1
[2016-12-16] VITALS: BP 132/71; PULSE 76; TEMP 36.8; O2SAT 100
[2016-12-16] MEDS: PIPERACILL/TAZOBAC IV 3.375 GM in DEXTROSE 5% 100ML IV SCH ×3 (01:00→16:34)
[2016-12-16] MEDS: DiphenhydrAMINE HCL 50 MG/ML VIAL IV PRN ×3 (01:51→18:12)
[2016-12-16] MEDS: HYDROmorphone INJ 0.5 MG/0.5 ML SYR IV PRN ×5 (01:54→21:40)
[2016-12-16 06:23] LABS: CREATININE 0.99 mg/dl (0.60-1.40)
[2016-12-16 07:53] VITALS: BP 118/73; PULSE 71; TEMP 36.6; O2SAT 97
[2016-12-16] MEDS: OXYCODONE HCL 10 MG TABCR (OXYCONTIN) PO SCH ×2 (09:16→20:30)
[2016-12-16] MEDS: OXYCODONE HCL IR 5 MG TAB (IMMEDIATE RELEASE) PO PRN ×3 (09:16→23:48)
[2016-12-16] MEDS: GABAPENTIN 600 MG TAB PO SCH ×3 (09:16→20:29)
[2016-12-16] MEDS: DAPTOMYCIN IV SCH (09:16)
[2016-12-16] MEDS: SODIUM CHLORIDE 0.9% IV SCH (09:16)
--- NOTE | 2016-12-16 11:16 | Orthopedic Progress Note ---
Orthopedic Progress Note Date of Service Dec 16, 2016. Subjective Reports: complaints, Denies: chest pain, SOB, nausea / vomiting, light headedness Additional Notes: Right shoulder pain and swelling improving. Objective N/V intact, capillary refill less than 2 sec., A&O x3 Right shoulder soft, diminished tenderness to palpation.DNVSI Date Time Temp Pulse Resp B/P (MAP) Pulse Ox O2 Delivery O2 Flow Rate FiO2 12/16/16 08:24 Room Air 12/16/16 07:53 36.6 71 18 118/73 (88) 97 Room Air 12/16/16 00:00 Room Air 12/16/16 00:00 36.8 76 20 132/71 (91) 100 Room Air 12/15/16 20:00 Room Air 12/15/16 16:00 Room Air 12/15/16 14:54 37.0 77 18 121/71 (88) 96 Assessment & Plan Assessment: h/o chronic recurrent infection right shoulder Improving cellulitis right shoulder Plan: Cont IV anbx Consider MRI w/ contrast if symptoms worsen-symptoms improved on IV anbx
[2016-12-16 15:48] VITALS: BP 126/79; PULSE 83; TEMP 36.7; O2SAT 94
--- NOTE | 2016-12-16 16:30 | Progress Note ---
Internal Med Progress Note Date of Service: Dec 16, 2016. Provider Documentation: SUBJECTIVE: eating ok pain in his right shoulder is ok afebrile soft stools says he is doing fine OBJECTIVE: Vital Signs-as noted below Exam: General-alert and oriented. Not in distress ENT-normal hearing Neck-no neck masses Lungs-cta b/l no wheezing or crackles Heart-s1 and s2 heard regular no murmurs Abdomen-soft bowel sounds present nontender no distension Extremities-no edema no erythema Musculoskeletal Erythema in right shoulder area-improving Neuro-alert and oriented moves extremities Lab data as noted below. ASSESSMENT & PLAN: 41m WITH HX OF RECURRENT RIGHT SHOULDER INFECTION AND ON IV ABX PRESENTS WITH RIGHT SHOULDER INFECTION Right Shoulder pain, Redness and Swelling Recurrent admission for right shoulder infections Has been on Zosyn and Dapto Continue IV abx Appreciate ID inputs Appreciate ortho recommendations if no improvement plan for MRI Rt shoulder superficial cx growing Morganella and Proteus which are sensitive to Zosyn duration of abx as per ID CHRONIC / ACUTE PAIN Chronic pain due to right shoulder pathology. [place] reviewed by Received Oxycontin 20 mg # 60 and oxycodone 10 mg # 120 on 12/10/16. IV hydromorphone PRN for severe uncontrolled pain. seems comfortable continue same Itching with iv abx on Benadryl prn improved HYPOKALEMIA K replaced Monitor BMP VTE PROPHYLAXIS SCD's. Ambulate. DISPOSITION to be determined followup with pcp, ID and Orthopedics Vital Signs: Date Time Temp Pulse Resp B/P (MAP) Pulse Ox O2 Delivery O2 Flow Rate FiO2 12/16/16 15:48 36.7 83 18 126/79 (95) 94 12/16/16 15:43 Room Air 12/16/16 08:24 Room Air 12/16/16 07:53 36.6 71 18 118/73 (88) 97 Room Air 12/16/16 00:00 Room Air 12/16/16 00:00 36.8 76 20 132/71 (91) 100 Room Air 12/15/16 20:00 Room Air Lab Results: Results Past 24 Hours Test 12/16/16 05:22 Range/Units Creatinine 0.99 0.60-1.40 mg/dl Est Creatinine Clear Calc Drug Dose 115.3 ml/min Estimated GFR () 110.7 Estimated GFR (Non- 95.5
[2016-12-16 23:29] VITALS: BP 150/70; PULSE 82; TEMP 37; O2SAT 94
[2016-12-17] MEDS: PIPERACILL/TAZOBAC IV 3.375 GM in DEXTROSE 5% 100ML IV SCH ×3 (01:04→17:28)
[2016-12-17] MEDS: HYDROmorphone INJ 0.5 MG/0.5 ML SYR IV PRN ×5 (02:15→22:17)
[2016-12-17] MEDS: DiphenhydrAMINE HCL 50 MG/ML VIAL IV PRN ×3 (02:16→18:38)
[2016-12-17 07:29] VITALS: BP 89/52; PULSE 72; TEMP 36.5; O2SAT 98
[2016-12-17] MEDS: SODIUM CHLORIDE 0.9% IV SCH (08:43)
[2016-12-17] MEDS: GABAPENTIN 600 MG TAB PO SCH ×3 (08:43→21:13)
[2016-12-17] MEDS: DAPTOMYCIN IV SCH (08:43)
[2016-12-17] MEDS: OXYCODONE HCL 10 MG TABCR (OXYCONTIN) PO SCH ×2 (08:44→21:13)
[2016-12-17 08:45] LABS: BASO % 0.6 %; BASO ABS # 0.06 K/uL (0-0.2); COMPLETE YES; EOS % 7.8 %; HEMATOCRIT 41.1 % (42-52); IG% 0.3 %; LYMPH ABS # 2.53 K/uL (1.2-3.4); MEAN CELL VOLUME 76.7 fL (80-100); MEAN CORPUSCULAR HEMOGLOBIN 24.1 pg (25-34); MEAN CORPUSCULAR HGB CONC 31.4 g/dl (32-36); MONO % 7.4 %; NEUT % 58.9 %; PLATELET COUNT 330 K/uL (130-400); RED BLOOD COUNT 5.36 M/uL (4.7-6.1); WHITE BLOOD COUNT 10.11 K/uL (4.8-10.8)
[2016-12-17 08:52] VITALS: BP 106/73; PULSE 77
[2016-12-17 09:24] LABS: BUN/CREATININE RATIO 11.4 (10-20); C-REACTIVE PROTEIN 0.49 mg/dl (0-0.29); CALCIUM 8.6 mg/dl (8.5-10.1); CREATININE 1.1 mg/dl (0.60-1.40); MAGNESIUM 2.2 mg/dl (1.8-2.4); POTASSIUM 3.7 mmol/L (3.5-5.1)
--- NOTE | 2016-12-17 10:01 | Orthopedic Progress Note ---
Orthopedic Progress Note Date of Service Dec 17, 2016. Subjective Reports: feeling well, pain controlled w PO medications Additional Notes: Overall, shoulder is feeling the same. Noticed an area at the back of the shoulder that feels like a "hole." Objective N/V intact, A&O x3 Right shoulder: No erythema today. Well healed incisions. The posterior shoulder portal is well healed but the tissue beneath the portal feels to have a void, possibly from multiple surgeries. No open area noted. Date Time Temp Pulse Resp B/P (MAP) Pulse Ox O2 Delivery O2 Flow Rate FiO2 12/17/16 08:52 77 106/73 (84) 12/17/16 08:00 Room Air 12/17/16 07:29 36.5 72 18 89/52 (64) 98 12/17/16 00:00 Room Air 12/16/16 23:29 37.0 82 18 150/70 (96) 94 Room Air 12/16/16 20:00 Room Air 12/16/16 15:48 36.7 83 18 126/79 (95) 94 12/16/16 15:43 Room Air Laboratory Results 24 Hours: Test 12/17/16 08:23 White Blood Count 10.11 K/uL Red Blood Count 5.36 M/uL Hemoglobin 12.9 g/dL Hematocrit 41.1 % Mean Corpuscular Volume 76.7 fL Mean Corpuscular Hemoglobin 24.1 pg Mean Corpuscular Hemoglobin Concent 31.4 g/dl Platelet Count 330 K/uL Mean Platelet Volume 10.0 fL Neutrophils (%) (Auto) 58.9 % Lymphocytes (%) (Auto) 25.0 % Monocytes (%) (Auto) 7.4 % Eosinophils (%) (Auto) 7.8 % Basophils (%) (Auto) 0.6 % Neutrophils # (Auto) 5.95 K/uL Lymphocytes # (Auto) 2.53 K/uL Monocytes # (Auto) 0.75 K/uL Eosinophils # (Auto) 0.79 K/uL Basophils # (Auto) 0.06 K/uL Assessment & Plan Assessment: h/o chronic recurrent infection right shoulder Improving cellulitis right shoulder Plan: Cont IV anbx Consider MRI w/ contrast if symptoms worsen-symptoms improved on IV anbx Stable from ortho standpoint. No surgical intervention at this time. Will sign off at this time.
[2016-12-17] MEDS: OXYCODONE HCL IR 5 MG TAB (IMMEDIATE RELEASE) PO PRN (14:19)
[2016-12-17 16:24] VITALS: BP 118/81; PULSE 82; TEMP 36.7; O2SAT 94
--- NOTE | 2016-12-17 22:15 | Progress Note ---
Medicine Progress Note Date & Time of Visit: Dec 17, 2016 at 15:05 . Subjective No fever. No nausea, vomiting, diarrhea. Persistent right shoulder pain. . Objective Last 8 Hrs Date Time Temp Pulse Resp B/P (MAP) Pulse Ox O2 Delivery O2 Flow Rate FiO2 12/17/16 20:00 Room Air 12/17/16 16:24 36.7 82 18 118/81 (93) 94 Room Air 12/17/16 16:00 Room Air Physical Exam: General- no distress Lungs- clear Heart- RRR Abdomen- + BS, soft, nontender Extremities- swelling right shoulder, no drainage, no erythema or warmth Neuro- alert . Laboratory Results: Last 24 Hours Test 12/17/16 08:23 White Blood Count 10.11 K/uL Red Blood Count 5.36 M/uL Hemoglobin 12.9 g/dL Hematocrit 41.1 % Mean Corpuscular Volume 76.7 fL Mean Corpuscular Hemoglobin 24.1 pg Mean Corpuscular Hemoglobin Concent 31.4 g/dl Platelet Count 330 K/uL Mean Platelet Volume 10.0 fL Neutrophils (%) (Auto) 58.9 % Lymphocytes (%) (Auto) 25.0 % Monocytes (%) (Auto) 7.4 % Eosinophils (%) (Auto) 7.8 % Basophils (%) (Auto) 0.6 % Neutrophils # (Auto) 5.95 K/uL Lymphocytes # (Auto) 2.53 K/uL Monocytes # (Auto) 0.75 K/uL Eosinophils # (Auto) 0.79 K/uL Basophils # (Auto) 0.06 K/uL RDW Standard Deviation 48.7 fL RDW Coefficient of Variation 17.2 % Immature Granulocyte % (Auto) 0.3 % Immature Granulocyte # (Auto) 0.03 K/uL Sodium Level 137 mmol/L Potassium Level 3.7 mmol/L Chloride Level 105 mmol/L Carbon Dioxide Level 26 mmol/L Anion Gap 6.0 mmol/L Blood Urea Nitrogen 13 mg/dl Creatinine 1.10 mg/dl Est Creatinine Clear Calc Drug Dose 103.8 ml/min Estimated GFR () 97.5 Estimated GFR (Non- 84.1 BUN/Creatinine Ratio 11.4 Random Glucose 96 mg/dl Calcium Level 8.6 mg/dl Magnesium Level 2.2 mg/dl C-Reactive Protein 0.49 mg/dl Assessment & Plan RIGHT SHOULDER INFECTION Chronic / recurrent right shoulder infection. Ortho and ID consulted. Wound culture growing Morganella morganii and Proteus vulgaris. US - no apparent abscess. Continue IV daptomycin and piperacillin / tazobactam. Continue analgesics, wean as tolerated. VTE PROPHYLAXIS SCD's. Ambulate. DISPOSITION Expected discharge to home. Ortho follow-up with Dr. Byrd. . Current Inpatient Medications: Current Inpatient Medications Medications (Trade) Dose Ordered Sig/Diane Route Start Time Stop Time Status Last Admin Dose Admin Gabapentin (Neurontin Tab) 600 mg TID PO 12/13/16 08:00 01/12/17 08:59 12/17/16 21:13 600 MG Oxycodone HCl (Oxycontin Tab) 10 mg Q12H PO 12/13/16 09:00 12/27/16 08:59 12/17/16 21:13 10 MG Oxycodone HCl (Roxicodone Immediate Rel Tab) 10 mg Q6 PRN PO 12/13/16 03:15 01/12/17 03:14 12/17/16 14:19 10 MG Daptomycin 585 mg/ Sodium Chloride 61.7 ml @ 120 mls/hr Q24H IV 12/13/16 08:00 12/29/16 07:59 12/17/16 08:43 120 MLS/HR Piperacillin Sod/ Tazobactam Sod 3.375 gm/Dextrose 115 ml @ 28.75 mls/ hr Q8H IV 12/13/16 09:00 12/29/16 08:59 12/17/16 17:28 28.75 MLS/HR Piperacillin Sod/ Tazobactam Sod (Consult) 1 ea UD PRN N/A 12/13/16 07:00 01/12/17 06:59 Hydromorphone HCl (Dilaudid Inj) 0.5 mg Q3HWA PRN IV 12/13/16 10:15 12/27/16 10:14 12/17/16 18:39 0.5 MG Heparin Sodium (Porcine) (Heparin 10 Unit/ ml 5 ml Flush) 5 ml PRN PRN FLUSH 12/14/16 01:30 01/13/17 01:29 12/17/16 15:32 5 ML Diphenhydramine HCl (Benadryl Inj) 25 mg TID PRN IV 12/14/16 15:15 01/13/17 15:14 12/17/16 18:38 25 MG
[2016-12-18 00:01] VITALS: BP 103/66; PULSE 84; TEMP 36.9; O2SAT 96
[2016-12-18] MEDS: PIPERACILL/TAZOBAC IV 3.375 GM in DEXTROSE 5% 100ML IV SCH ×3 (00:52→18:04)
[2016-12-18] MEDS: DiphenhydrAMINE HCL 50 MG/ML VIAL IV PRN ×3 (02:46→20:00)
[2016-12-18] MEDS: HYDROmorphone INJ 0.5 MG/0.5 ML SYR IV PRN ×4 (02:47→22:04)
[2016-12-18 07:54] VITALS: BP 99/68; PULSE 66; TEMP 36.8; O2SAT 91
[2016-12-18] MEDS: SODIUM CHLORIDE 0.9% IV SCH (10:47)
[2016-12-18] MEDS: DAPTOMYCIN IV SCH (10:47)
[2016-12-18] MEDS: GABAPENTIN 600 MG TAB PO SCH ×3 (10:47→20:02)
[2016-12-18] MEDS: OXYCODONE HCL 10 MG TABCR (OXYCONTIN) PO SCH ×2 (10:48→20:02)
[2016-12-18] MEDS: OXYCODONE HCL IR 5 MG TAB (IMMEDIATE RELEASE) PO PRN ×2 (10:48→18:04)
--- NOTE | 2016-12-18 15:20 | Infectious Disease Progress Nt ---
Progress Note Date of Service Dec 18, 2016. Subjective Pt evaluation today including: conversation w/ patient, physical exam, chart review, lab review, review of studies, review of inpatient medication list WBC count yesterday was 10.11. Creatinine was stable at 1.10. CRP was improved at 0.49. Wound culture grew Morganella and Proteus both of which were sensitive to Zosyn. Ortho signed off- no surgical intervention at this time. Will follow up as outpatient. Patient continues to complain of right shoulder pain which is slightly improved. He continues to have chronically loose stools. His appetite is poor. He otherwise has improved slightly. All Other Systems: Reviewed and Negative Medications Current Inpatient Medications Medications (Trade) Dose Ordered Sig/Diane Route Start Time Stop Time Status Last Admin Dose Admin Gabapentin (Neurontin Tab) 600 mg TID PO 12/13/16 08:00 01/12/17 08:59 12/18/16 13:37 600 MG Oxycodone HCl (Oxycontin Tab) 10 mg Q12H PO 12/13/16 09:00 12/27/16 08:59 12/18/16 10:48 10 MG Oxycodone HCl (Roxicodone Immediate Rel Tab) 10 mg Q6 PRN PO 12/13/16 03:15 01/12/17 03:14 12/18/16 10:48 10 MG Daptomycin 585 mg/ Sodium Chloride 61.7 ml @ 120 mls/hr Q24H IV 12/13/16 08:00 12/29/16 07:59 12/18/16 10:47 120 MLS/HR Piperacillin Sod/ Tazobactam Sod 3.375 gm/Dextrose 115 ml @ 28.75 mls/ hr Q8H IV 12/13/16 09:00 12/29/16 08:59 12/18/16 10:48 28.75 MLS/HR Piperacillin Sod/ Tazobactam Sod (Consult) 1 ea UD PRN N/A 12/13/16 07:00 01/12/17 06:59 Hydromorphone HCl (Dilaudid Inj) 0.5 mg Q3HWA PRN IV 12/13/16 10:15 12/27/16 10:14 12/18/16 11:31 0.5 MG Heparin Sodium (Porcine) (Heparin 10 Unit/ ml 5 ml Flush) 5 ml PRN PRN FLUSH 12/14/16 01:30 01/13/17 01:29 12/18/16 09:40 5 ML Diphenhydramine HCl (Benadryl Inj) 25 mg TID PRN IV 12/14/16 15:15 01/13/17 15:14 12/18/16 11:31 25 MG Objective Vital Signs Date Time Temp Pulse Resp B/P (MAP) Pulse Ox O2 Delivery O2 Flow Rate FiO2 12/18/16 10:24 Room Air 12/18/16 07:54 36.8 66 20 99/68 (78) 91 12/18/16 00:01 36.9 84 16 103/66 (78) 96 Room Air 12/18/16 00:00 Room Air 12/17/16 20:00 Room Air 12/17/16 16:24 36.7 82 18 118/81 (93) 94 Room Air 12/17/16 16:00 Room Air Physical Exam General Appearance: WD/WN, no apparent distress Eyes: normal inspection, sclerae normal ENT: hearing grossly normal Neck: supple, trachea midline Respiratory/Chest: no respiratory distress, no accessory muscle use Cardiovascular: + pertinent finding (regular rate) Extremities: + pertinent finding (Continued mild edema of the right proximal arm and shoudler. Continued mild tenderness to palpation. Overall improved. ) Neurologic/Psychiatric: alert, normal mood/affect Skin: warm/dry, no rash, + pertinent finding (Very mild erythema of right shoudler incision- improved.) Laboratory Results RUN DATE: 12/16/16 [facility] LAB PAGE 1 RUN TIME: 844 Specimen Inquiry PATIENT: ODALYS GALVEZ LOC: Jose U # : [id number] AGE/SX: 41/M ROOM: [facility] REG : 12/13/[address]: Garcia Garcia MD : [id number] BED: 1 DIS : STATUS: ADM IN TLOC: SPEC #: [id number] RANDA: 12/13/16 STATUS: COMP REQ #: [id number] RECD: 12/13/[address]: Kenan Byrd M.D. SOURCE: DRAIN-SURF ENTR: 12/13/[address]: Jose Bailey MD [facility]: Yasmany SPANGLER Wilkerson, M.D. Palepu, Rajendra P., MD ORDERED: SURF WND [facility] COMMENTS: Specimen Comment pus from expressed pimple /small boil,abscess Has Specimen Been Obtained/Collected? Y Procedure Result Verified Site GRAM STAIN Final 12/14/16-925 RESULT MODERATE WBCs SEEN NO ORGANISMS SEEN SURFACE WOUND CULTURE Final 12/16/16-844 Organism 1 MORGANELLA MORGANII CB FEW SENS SENSITIVITY TO FOLLOW Organism 2 PROTEUS VULGARIS QUANDELONTE FEW SENS SENSITIVITY TO FOLLOW BECCA MERCEDES M.I.CJessie RX M.I.C. RX --------- ------ --------- ------ TRIMET/SULFA <=2/38 S <=2/38 S AMPICILLIN/SUL >16/8 R <=8/4 S CEFOTAXIME 32 I <=2 S CEFTRIAXONE 32 R 2 I CEFEPIME <=4 S <=4 S IMIPENEM 4 R 2 I GENTAMICIN <=4 S <=4 S TOBRAMYCIN <=4 S <=4 S AMIKACIN <=16 S <=16 S CIPROFLOXACIN <=1 S <=1 S LEVOFLOXACIN <=2 S <=2 S ERTAPENEM <=1 S <=1 S PIP/TAZO <=16 S <=16 S 1. MORGANELLA MORGANII Target Route Dose RX AB Reese M.I.C. IQ ------ ----- ------ -- ------ -------- - ------ TRIMET/SULFA S <=2/38 AMPICILLIN/SUL R >16/8 CEFOTAXIME I 32 CEFTRIAXONE R 32 CEFEPIME S <=4 IMIPENEM R 4 CONTINUED ON NEXT PAGE RUN DATE: 12/16/16 [facility] LAB PAGE 2 RUN TIME: 844 Specimen Inquiry SPEC: [id number] PATIENT: ODALYS GALVEZ Zulema [id number] ( Continued) Procedure Result Verified Site SURFACE WOUND CULTURE Final (continued) 12/16/16-844 1. MORGANELLA MORGANII (continued) Target Route Dose RX AB Cost M.I.C. IQ ------ ----- ------ -- ------ -------- - ------ GENTAMICIN S <=4 TOBRAMYCIN S <=4 AMIKACIN S <=16 CIPROFLOXACIN S <=1 LEVOFLOXACIN S <=2 ERTAPENEM S <=1 PIP/TAZO S <=16 2. PROTEUS VULGARIS Target Route Dose RX AB Cost M.I.C. IQ ------ ----- ------ -- ------ -------- - ------ TRIMET/SULFA S <=2/38 AMPICILLIN/SUL S <=8/4 CEFOTAXIME S <=2 CEFTRIAXONE I 2 CEFEPIME S <=4 IMIPENEM I 2 GENTAMICIN S <=4 TOBRAMYCIN S <=4 AMIKACIN S <=16 CIPROFLOXACIN S <=1 LEVOFLOXACIN S <=2 ERTAPENEM S <=1 PIP/TAZO S <=16 S = SENSITIVE I = INTERMEDIATE R = RESISTANT Assessment and Plan Patient with history of multiple blood stream and right shoulder infections now with right shoulder cellulitis, edema, and potential underlying abscess. Wound culture growing Morganella and Proteus. Patient is currently on IV Zosyn and Daptomycin- these are appropriate with current culture results. Continue current therapy. Likely will continue at least 2-3 more weeks until re- evaluated as an outpatient. He is OK for D/C from ID perspective when medically cleared. Thanks Case reviewed and agree with above assessment
[2016-12-18 15:29] VITALS: BP 98/61; PULSE 88; TEMP 36.7; O2SAT 98
--- NOTE | 2016-12-18 22:22 | Progress Note ---
Medicine Progress Note Date & Time of Visit: Dec 18, 2016 at 18:30 . Subjective Feels warm at times, but no documented fever. Persistent right shoulder pain. No nausea, vomiting, diarrhea. . Objective Last 8 Hrs Date Time Temp Pulse Resp B/P (MAP) Pulse Ox O2 Delivery O2 Flow Rate FiO2 12/18/16 15:58 Room Air 12/18/16 15:29 36.7 88 18 98/61 (73) 98 Physical Exam: General- no distress Lungs- clear Heart- RRR Abdomen- + BS, soft, nontender Extremities- swelling right shoulder, no drainage, no erythema or warmth; no pretibial edema or calf tenderness Neuro- alert . Assessment & Plan RIGHT SHOULDER INFECTION Chronic / recurrent right shoulder infection. Ortho and ID consulted. Wound culture grew Morganella morganii and Proteus vulgaris. US - no apparent abscess. Continue IV daptomycin and piperacillin / tazobactam. Weaned analgesics as tolerated. VTE PROPHYLAXIS SCD's. Ambulate. DISPOSITION Expected discharge to home. Ortho follow-up with Dr. Byrd. . Current Inpatient Medications: Current Inpatient Medications Medications (Trade) Dose Ordered Sig/Diane Route Start Time Stop Time Status Last Admin Dose Admin Gabapentin (Neurontin Tab) 600 mg TID PO 12/13/16 08:00 01/12/17 08:59 12/18/16 20:02 600 MG Oxycodone HCl (Oxycontin Tab) 10 mg Q12H PO 12/13/16 09:00 12/27/16 08:59 12/18/16 20:02 10 MG Oxycodone HCl (Roxicodone Immediate Rel Tab) 10 mg Q6 PRN PO 12/13/16 03:15 01/12/17 03:14 12/18/16 18:04 10 MG Daptomycin 585 mg/ Sodium Chloride 61.7 ml @ 120 mls/hr Q24H IV 12/13/16 08:00 12/29/16 07:59 12/18/16 10:47 120 MLS/HR Piperacillin Sod/ Tazobactam Sod 3.375 gm/Dextrose 115 ml @ 28.75 mls/ hr Q8H IV 12/13/16 09:00 12/29/16 08:59 12/18/16 18:04 28.75 MLS/HR Piperacillin Sod/ Tazobactam Sod (Consult) 1 ea UD PRN N/A 12/13/16 07:00 01/12/17 06:59 Heparin Sodium (Porcine) (Heparin 10 Unit/ ml 5 ml Flush) 5 ml PRN PRN FLUSH 12/14/16 01:30 01/13/17 01:29 12/18/16 15:49 5 ML Diphenhydramine HCl (Benadryl Inj) 25 mg TID PRN IV 12/14/16 15:15 01/13/17 15:14 12/18/16 20:00 25 MG Hydromorphone HCl (Dilaudid Inj) 0.5 mg Q6H PRN IV 12/18/16 22:00 01/01/17 21:59 12/18/16 22:04 0.5 MG
[2016-12-18 23:53] VITALS: BP 94/53; PULSE 99; TEMP 36.9; O2SAT 96
[2016-12-19] VITALS (9 sets, daily range): BP systolic 110–136; BP diastolic 62–78; PULSE 25–122; TEMP 37.5–39.5; O2SAT 93–94
[2016-12-19] MEDS ORDERED: HYDROmorphone INJ 0.5 MG/0.5 ML SYR IV PRN
[2016-12-19] MEDS: PIPERACILL/TAZOBAC IV 3.375 GM in DEXTROSE 5% 100ML IV SCH ×3 (01:16→17:21)
[2016-12-19] MEDS: OXYCODONE HCL IR 5 MG TAB (IMMEDIATE RELEASE) PO PRN ×3 (01:20→14:02)
[2016-12-19] MEDS: HYDROmorphone INJ 0.5 MG/0.5 ML SYR IV PRN ×2 (04:02→20:47)
[2016-12-19] MEDS: DiphenhydrAMINE HCL 50 MG/ML VIAL IV PRN ×2 (04:02→20:46)
[2016-12-19] MEDS ORDERED: NURSING VERBAL MED ORDER ONE (06:00)
[2016-12-19] MEDS ORDERED: ACETAMINOPHEN 325 MG TAB PO ONE (06:00)
[2016-12-19] MEDS: OXYCODONE HCL 10 MG TABCR (OXYCONTIN) PO SCH ×2 (08:05→20:41)
[2016-12-19] MEDS: DAPTOMYCIN IV SCH (08:05)
[2016-12-19] MEDS: GABAPENTIN 600 MG TAB PO SCH ×3 (08:05→20:41)
[2016-12-19] MEDS: SODIUM CHLORIDE 0.9% IV SCH (08:05)
[2016-12-19 08:39] LABS: BASO % 0.4 %; BASO ABS # 0.05 K/uL (0-0.2); COMPLETE YES; EOS % 2.9 %; HEMATOCRIT 40.5 % (42-52); IG% 0.2 %; LYMPH % 5.3 %; LYMPH ABS # 0.72 K/uL (1.2-3.4); MEAN CELL VOLUME 76.7 fL (80-100); MEAN CORPUSCULAR HEMOGLOBIN 24.2 pg (25-34); MEAN CORPUSCULAR HGB CONC 31.6 g/dl (32-36); MEAN PLATELET VOLUME 10.4 fL (7.4-10.4); MONO % 8.8 %; NEUT % 82.4 %; PLATELET COUNT 299 K/uL (130-400); RED BLOOD COUNT 5.28 M/uL (4.7-6.1); WHITE BLOOD COUNT 13.68 K/uL (4.8-10.8)
[2016-12-19] MEDS ORDERED: HYDROmorphone INJ 1 MG/ML SYR ONE (09:13)
[2016-12-19 09:18] LABS: BUN/CREATININE RATIO 10.8 (10-20); CREATININE 1.3 mg/dl (0.60-1.40); POTASSIUM 4.2 mmol/L (3.5-5.1)
[2016-12-19 09:20] LABS: C-REACTIVE PROTEIN 0.91 mg/dl (0-0.29)
[2016-12-19] MEDS ORDERED: HYDROmorphone INJ 1 MG/ML SYR IV STA (09:34)
[2016-12-19 12:16] LABS: CALCIUM 8.3 mg/dl (8.5-10.1)
[2016-12-19] MEDS: ACETAMINOPHEN 500 MG TAB PO PRN (15:48)
[2016-12-19] MEDS ORDERED: IBUPROFEN 800 MG TAB PO ONE (17:45)
--- NOTE | 2016-12-19 22:41 | Progress Note ---
Medicine Progress Note Date & Time of Visit: Dec 19, 2016 at 09:15 . Subjective Fever and chills this morning. Worsening right shoulder pain. No cough or SOB. Chronic soft stools unchanged in frequency or character. . Objective Last 8 Hrs Date Time Temp Pulse Resp B/P (MAP) Pulse Ox O2 Delivery O2 Flow Rate FiO2 12/19/16 07:32 39.4 122 22 121/66 (84) 94 12/19/16 05:42 39.4 12/19/16 01:25 136/78 (97) Physical Exam: General- appears to be uncomfortable Lungs- clear Heart- RRR Abdomen- + BS, soft, nontender Extremities- swelling right shoulder, no drainage, no erythema; no pretibial edema or calf tenderness Neuro- alert . Laboratory Results: Last 24 Hours Test 12/19/16 08:03 White Blood Count 13.68 K/uL Red Blood Count 5.28 M/uL Hemoglobin 12.8 g/dL Hematocrit 40.5 % Mean Corpuscular Volume 76.7 fL Mean Corpuscular Hemoglobin 24.2 pg Mean Corpuscular Hemoglobin Concent 31.6 g/dl Platelet Count 299 K/uL Mean Platelet Volume 10.4 fL Neutrophils (%) (Auto) 82.4 % Lymphocytes (%) (Auto) 5.3 % Monocytes (%) (Auto) 8.8 % Eosinophils (%) (Auto) 2.9 % Basophils (%) (Auto) 0.4 % Neutrophils # (Auto) 11.29 K/uL Lymphocytes # (Auto) 0.72 K/uL Monocytes # (Auto) 1.20 K/uL Eosinophils # (Auto) 0.39 K/uL Basophils # (Auto) 0.05 K/uL RDW Standard Deviation 48.6 fL RDW Coefficient of Variation 17.2 % Immature Granulocyte % (Auto) 0.2 % Immature Granulocyte # (Auto) 0.03 K/uL Date/Time Source Procedure Growth Status 12/19/16 08:04 Blood Blood Culture Pending Karely Batch 12/19/16 07:45 Blood Blood Culture Pending Karely Batch Assessment & Plan RIGHT SHOULDER INFECTION Chronic / recurrent right shoulder infection. Ortho and ID consulted. Wound culture grew Morganella morganii and Proteus vulgaris. US - no apparent abscess. Febrile today. Check repeat blood cultures. Status discussed with ID and Ortho. Continue IV daptomycin and piperacillin / tazobactam. Check MRI. VTE PROPHYLAXIS SCD's. Ambulate. DISPOSITION Expected discharge to home. Ortho follow-up with Dr. Byrd. . Current Inpatient Medications: Current Inpatient Medications Medications (Trade) Dose Ordered Sig/Diane Route Start Time Stop Time Status Last Admin Dose Admin Gabapentin (Neurontin Tab) 600 mg TID PO 12/13/16 08:00 01/12/17 08:59 12/19/16 08:05 600 MG Oxycodone HCl (Oxycontin Tab) 10 mg Q12H PO 12/13/16 09:00 12/27/16 08:59 12/19/16 08:05 10 MG Oxycodone HCl (Roxicodone Immediate Rel Tab) 10 mg Q6 PRN PO 12/13/16 03:15 01/12/17 03:14 12/19/16 08:04 10 MG Daptomycin 585 mg/ Sodium Chloride 61.7 ml @ 120 mls/hr Q24H IV 12/13/16 08:00 12/29/16 07:59 12/19/16 08:05 120 MLS/HR Piperacillin Sod/ Tazobactam Sod 3.375 gm/Dextrose 115 ml @ 28.75 mls/ hr Q8H IV 12/13/16 09:00 12/29/16 08:59 12/19/16 09:16 28.75 MLS/HR Piperacillin Sod/ Tazobactam Sod (Consult) 1 ea UD PRN N/A 12/13/16 07:00 01/12/17 06:59 Heparin Sodium (Porcine) (Heparin 10 Unit/ ml 5 ml Flush) 5 ml PRN PRN FLUSH 12/14/16 01:30 01/13/17 01:29 12/19/16 05:41 5 ML Diphenhydramine HCl (Benadryl Inj) 25 mg TID PRN IV 12/14/16 15:15 01/13/17 15:14 12/19/16 04:02 25 MG Hydromorphone HCl (Dilaudid Inj) 0.5 mg Q6H PRN IV 12/18/16 22:00 01/01/17 21:59 12/19/16 04:02 0.5 MG
--- NOTE | 2016-12-19 22:41 | DIAGNOSTIC IMAGING REPORT ---
MRI right shoulder UPPER EXT JOINT WITHOUT CLINICAL HISTORY: fever, right shoulder pain TECHNIQUE: MRI multi axial acquisition COMPARISON STUDY: 07/13/2015 FINDINGS: No evidence for abnormal mass or collection. Stable postoperative changes about the shoulder. No evidence for major rotator cuff tear. Mild rotator cuff tendinopathy. Potential subcutaneous contusion lateral to the right upper right arm. This study is compromised by motion artifact. Mild deterioration glenoid labrum. IMPRESSION: 1. Mild posttraumatic soft tissue contusion. 2. No evidence for major internal derangement of the shoulder. 3. Mild rotator cuff tendinopathy. 4. Mild degenerative changes of the articular services. 5. No evidence for abnormal mass or collection Electronically signed by: Natanael Wilson M.D. 12/19/2016 10:39 PM Dictated Date/Time: 12/19/2016 10:36 PM
[2016-12-20] VITALS (9 sets, daily range): BP systolic 92–130; BP diastolic 60–88; PULSE 101–115; TEMP 37.9–39.4; O2SAT 91–99
[2016-12-20] MEDS: ACETAMINOPHEN 500 MG TAB PO PRN ×3 (01:18→17:52)
[2016-12-20] MEDS: PIPERACILL/TAZOBAC IV 3.375 GM in DEXTROSE 5% 100ML IV SCH ×2 (01:19→09:14)
[2016-12-20] MEDS: OXYCODONE HCL IR 5 MG TAB (IMMEDIATE RELEASE) PO PRN ×3 (01:19→16:36)
[2016-12-20] MEDS: DiphenhydrAMINE HCL 50 MG/ML VIAL IV PRN ×3 (05:30→22:11)
[2016-12-20] MEDS: HYDROmorphone INJ 0.5 MG/0.5 ML SYR IV PRN ×3 (05:31→22:12)
[2016-12-20 05:55] LABS: MEAN CELL VOLUME 77.2 fL (80-100); MEAN CORPUSCULAR HEMOGLOBIN 24.4 pg (25-34); MEAN CORPUSCULAR HGB CONC 31.6 g/dl (32-36); PLATELET COUNT 215 K/uL (130-400); RED BLOOD COUNT 4.79 M/uL (4.7-6.1); WHITE BLOOD COUNT 9.76 K/uL (4.8-10.8)
[2016-12-20 06:36] LABS: BUN/CREATININE RATIO 8.2 (10-20); CREATININE 1.3 mg/dl (0.60-1.40); POTASSIUM 3.5 mmol/L (3.5-5.1)
[2016-12-20] MEDS: GABAPENTIN 600 MG TAB PO SCH ×3 (08:10→20:34)
[2016-12-20] MEDS: DAPTOMYCIN IV SCH (08:10)
[2016-12-20] MEDS: SODIUM CHLORIDE 0.9% IV SCH (08:10)
[2016-12-20] MEDS: OXYCODONE HCL 10 MG TABCR (OXYCONTIN) PO SCH ×2 (08:21→20:34)
--- NOTE | 2016-12-20 12:56 | DIAGNOSTIC IMAGING REPORT ---
CHEST 2 VIEWS ROUTINE CLINICAL HISTORY: fever, cough dyspnea COMPARISON STUDY: 12/12/2016 FINDINGS: Lungs remain clear. Central catheter is in the superior vena cava. Pulmonary vasculature is normal. Heart top limits normal terms of size. IMPRESSION: No acute process. The lungs are clear. Electronically signed by: Natanael Wilson M.D. 12/20/2016 12:54 PM Dictated Date/Time: 12/20/2016 12:54 PM
--- NOTE | 2016-12-20 16:27 | Infectious Disease Progress Nt ---
Progress Note Date of Service Dec 20, 2016. Subjective Pt evaluation today including: conversation w/ patient, physical exam, chart review, lab review, review of studies, conversation w/ senior talent management consultant (Dr. Clark), review of inpatient medication list Patient's white blood cell count today was 9.76. He continues to be afebrile and his a max temperature was 39.[address] Silva this ordered a chest x-ray along with urinalysis for this afternoon. The patient states that he is having muscle aches all over. He states that his back and neck are hurting especially along with his right shoulder. The patient did have an MRI of his right shoulder which showed posttraumatic soft tissue contusion, and no evidence of mass or collection. All Other Systems: Reviewed and Negative Medications Current Inpatient Medications Medications (Trade) Dose Ordered Sig/Diane Route Start Time Stop Time Status Last Admin Dose Admin Gabapentin (Neurontin Tab) 600 mg TID PO 12/13/16 08:00 01/12/17 08:59 12/20/16 14:35 600 MG Oxycodone HCl (Oxycontin Tab) 10 mg Q12H PO 12/13/16 09:00 12/27/16 08:59 12/20/16 08:21 10 MG Oxycodone HCl (Roxicodone Immediate Rel Tab) 10 mg Q6 PRN PO 12/13/16 03:15 01/12/17 03:14 12/20/16 10:36 10 MG Daptomycin 585 mg/ Sodium Chloride 61.7 ml @ 120 mls/hr Q24H IV 12/13/16 08:00 12/29/16 07:59 12/20/16 08:10 120 MLS/HR Piperacillin Sod/ Tazobactam Sod (Consult) 1 ea UD PRN N/A 12/13/16 07:00 01/12/17 06:59 Heparin Sodium (Porcine) (Heparin 10 Unit/ ml 5 ml Flush) 5 ml PRN PRN FLUSH 12/14/16 01:30 01/13/17 01:29 12/20/16 14:06 5 ML Diphenhydramine HCl (Benadryl Inj) 25 mg TID PRN IV 12/14/16 15:15 01/13/17 15:14 12/20/16 14:05 25 MG Hydromorphone HCl (Dilaudid Inj) 0.5 mg Q6H PRN IV 12/18/16 22:00 01/01/17 21:59 12/20/16 14:06 0.5 MG Acetaminophen (Tylenol Tab) 1,000 mg Q8H PRN PO 12/19/16 15:15 01/18/17 15:14 12/20/16 09:14 1,000 MG Ibuprofen (Motrin Tab) 800 mg Q8H PRN PO 12/20/16 13:15 01/19/17 13:14 Piperacillin Sod/ Tazobactam Sod 4.5 gm/Dextrose 120 ml @ 30 mls/hr Q8H IV 12/20/16 17:00 12/29/16 08:59 Objective Vital Signs Date Time Temp Pulse Resp B/P (MAP) Pulse Ox O2 Delivery O2 Flow Rate FiO2 12/20/16 14:53 38.8 101 18 106/71 (83) 99 12/20/16 13:06 37.9 115 16 120/88 (99) 91 Room Air 12/20/16 10:20 39.2 12/20/16 08:30 94 Room Air 12/20/16 07:09 39.4 105 22 92/60 (71) 92 Room Air 12/20/16 01:22 38.0 12/20/16 00:01 Room Air 12/19/16 23:38 37.5 93 20 115/71 (86) 93 Room Air 12/19/16 19:20 39.3 12/19/16 17:23 39.5 Physical Exam General Appearance: WD/WN, no apparent distress Eyes: normal inspection, sclerae normal ENT: hearing grossly normal Neck: supple, trachea midline Respiratory/Chest: chest non-tender, lungs clear, no respiratory distress, no accessory muscle use Cardiovascular: regular rate, rhythm Abdomen: normal bowel sounds, non tender, soft Extremities: + pertinent finding (mild edema right shoulder- overall improved) Neurologic/Psychiatric: alert, normal mood/affect Skin: warm/dry, no rash Laboratory Results MRI right shoulder UPPER EXT JOINT WITHOUT CLINICAL HISTORY: fever, right shoulder pain TECHNIQUE: MRI multi axial acquisition COMPARISON STUDY: 07/13/2015 FINDINGS: No evidence for abnormal mass or collection. Stable postoperative changes about the shoulder. No evidence for major rotator cuff tear. Mild rotator cuff tendinopathy. Potential subcutaneous contusion lateral to the right upper right arm. This study is compromised by motion artifact. Mild deterioration glenoid labrum. IMPRESSION: 1. Mild posttraumatic soft tissue contusion. 2. No evidence for major internal derangement of the shoulder. 3. Mild rotator cuff tendinopathy. 4. Mild degenerative changes of the articular services. 5. No evidence for abnormal mass or collection Item Value Date Time Blood Culture Received 12/19/16803 Blood Pending Blood Culture Received 12/19/16744 Blood Pending Last 24 Hours Test 12/20/16 05:20 White Blood Count 9.76 K/uL Red Blood Count 4.79 M/uL Hemoglobin 11.7 g/dL Hematocrit 37.0 % Mean Corpuscular Volume 77.2 fL Mean Corpuscular Hemoglobin 24.4 pg Mean Corpuscular Hemoglobin Concent 31.6 g/dl RDW Standard Deviation 49.2 fL RDW Coefficient of Variation 17.2 % Platelet Count 215 K/uL Mean Platelet Volume 10.0 fL Sodium Level 138 mmol/L Potassium Level 3.5 mmol/L Chloride Level 103 mmol/L Carbon Dioxide Level 30 mmol/L Anion Gap 5.0 mmol/L Blood Urea Nitrogen 11 mg/dl Creatinine 1.30 mg/dl Est Creatinine Clear Calc Drug Dose 87.8 ml/min Estimated GFR () 79.7 Estimated GFR (Non- 68.7 BUN/Creatinine Ratio 8.2 Random Glucose 119 mg/dl Calcium Level 8.0 mg/dl Assessment and Plan Patient with history of multiple blood stream and right shoulder infections who presented with increased edema and erythema of the right shoulder. He is now having fever, chills, and myalgias. Patient is currently on IV Zosyn and Daptomycin. Discussed with pharmacy and increased Zosyn dose. CK level will be repeated tomorrow morning. Will check procalcitonin. We will follow. Case reviewed and agree with above assessment.
[2016-12-20] MEDS: IBUPROFEN 800 MG TAB PO PRN (16:30)
[2016-12-20] MEDS: PIPERACILL/TAZOBAC IV 4.5 GM in DEXTROSE 5% 100ML IV SCH (16:33)
[2016-12-20 18:12] LABS: URINE APPEARANCE CLEAR (CLEAR); URINE BILIRUBIN NEG (NEG); URINE COLOR YELLOW; URINE NITRITE NEG (NEG); URINE PH 5.5 (4.5-7.5); URINE SPECIFIC GRAVITY 1.033 (1.000-1.030); UROBILINOGEN NEG (NEG); ZZUR CULT IF INDIC CLEAN CATCH NO
[2016-12-20 18:14] LABS: MANUAL MICROSCOPIC REQUIRED? NO; REVIEW REQ? NO
--- NOTE | 2016-12-20 19:09 | Progress Note ---
Orthopedic SOAP Note Subjective Date of Service: Dec 20, 2016. Additional Notes: having headache and generalized pain Problem List Medical Problems: (1) Abscess of right arm Status: Acute (2) Cellulitis of shoulder Status: Acute (3) Cellulitis of shoulder Status: Acute (4) Fever Status: Acute (5) Hypotension Status: Acute (6) Infection of shoulder Status: Acute (7) Right arm cellulitis Status: Acute (8) Sepsis Status: Acute (9) Sepsis Status: Acute (10) Sepsis Status: Acute (11) Septic arthritis of shoulder, right Status: Acute (12) Septic joint of right shoulder region Status: Acute (13) Shoulder pain Status: Acute Objective shoulder incision without drainage and erythema improved from exam last week , still some induration and tenderness anterior to scar. Date Time Temp Pulse Resp B/P (MAP) Pulse Ox O2 Delivery O2 Flow Rate FiO2 12/20/16 17:52 39.4 12/20/16 16:30 Room Air 12/20/16 14:53 38.8 101 18 106/71 (83) 99 12/20/16 13:06 37.9 115 16 120/88 (99) 91 Room Air 12/20/16 10:20 39.2 12/20/16 08:30 94 Room Air 12/20/16 07:09 39.4 105 22 92/60 (71) 92 Room Air 12/20/16 01:22 38.0 12/20/16 00:01 Room Air 12/19/16 23:38 37.5 93 20 115/71 (86) 93 Room Air 12/19/16 19:20 39.3 Laboratory Results 24 Hours: Test 12/20/16 05:20 Hematocrit 37.0 % Hemoglobin 11.7 g/dL Assessment h/o chronic recurrent infection right shoulder Improving cellulitis right shoulder,no deep collection to drain ,no surgery indicated at this time. Plan continue antibiotics per infectious disease service. no surgery at this time. will sign off.reconsult prn.
--- NOTE | 2016-12-20 22:20 | Progress Note ---
Medicine Progress Note Date & Time of Visit: Dec 20, 2016 at 11:00 . Subjective Persistent fever and chills. Persistent right shoulder pain. Experiencing headache and diffuse myalgias. No cough or shortness of breath. Intermittent nausea. No diarrhea today. No urinary symptoms. . Objective Last 8 Hrs Date Time Temp Pulse Resp B/P (MAP) Pulse Ox O2 Delivery O2 Flow Rate FiO2 12/20/16 10:20 39.2 12/20/16 07:09 39.4 105 22 92/60 (71) 92 Room Air Physical Exam: General- appears to be uncomfortable Lungs- clear Heart- RRR Abdomen- + BS, soft, nontender Extremities- swelling right shoulder, no drainage, no erythema; no pretibial edema or calf tenderness Neuro- alert . Laboratory Results: Last 24 Hours Test 12/20/16 05:20 White Blood Count 9.76 K/uL Red Blood Count 4.79 M/uL Hemoglobin 11.7 g/dL Hematocrit 37.0 % Mean Corpuscular Volume 77.2 fL Mean Corpuscular Hemoglobin 24.4 pg Mean Corpuscular Hemoglobin Concent 31.6 g/dl RDW Standard Deviation 49.2 fL RDW Coefficient of Variation 17.2 % Platelet Count 215 K/uL Mean Platelet Volume 10.0 fL Sodium Level 138 mmol/L Potassium Level 3.5 mmol/L Chloride Level 103 mmol/L Carbon Dioxide Level 30 mmol/L Anion Gap 5.0 mmol/L Blood Urea Nitrogen 11 mg/dl Creatinine 1.30 mg/dl Est Creatinine Clear Calc Drug Dose 87.8 ml/min Estimated GFR () 79.7 Estimated GFR (Non- 68.7 BUN/Creatinine Ratio 8.2 Random Glucose 119 mg/dl Calcium Level 8.0 mg/dl Assessment & Plan RIGHT SHOULDER INFECTION 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 Ortho and ID consulted. Wound culture grew Morganella morganii and Proteus vulgaris. No apparent abscess per US. MRI did not show any apparent abscess, osteomyelitis, or other evidence of deep infection. FEVERS Became febrile the morning of 12/19/16. Experiencing headaches and diffuse myalgias, no other specific symptoms. Repeat blood cultures obtained- negative . No apparent abscess or osteomyelitis of right shoulder per MRI. Intermittent soft stools. Check for C. difficile. Check chest x-ray. Consider line infection. Consider occult infection (endocarditis, discitis / epidural abscess, etc). Consider drug fever (doubt). VTE PROPHYLAXIS SCD's. Ambulate. DISPOSITION Expected discharge to home. Ortho follow-up with Dr. Byrd. . Current Inpatient Medications: Current Inpatient Medications Medications (Trade) Dose Ordered Sig/Diane Route Start Time Stop Time Status Last Admin Dose Admin Gabapentin (Neurontin Tab) 600 mg TID PO 12/13/16 08:00 01/12/17 08:59 12/20/16 08:10 600 MG Oxycodone HCl (Oxycontin Tab) 10 mg Q12H PO 12/13/16 09:00 12/27/16 08:59 12/20/16 08:21 10 MG Oxycodone HCl (Roxicodone Immediate Rel Tab) 10 mg Q6 PRN PO 12/13/16 03:15 01/12/17 03:14 12/20/16 10:36 10 MG Daptomycin 585 mg/ Sodium Chloride 61.7 ml @ 120 mls/hr Q24H IV 12/13/16 08:00 12/29/16 07:59 12/20/16 08:10 120 MLS/HR Piperacillin Sod/ Tazobactam Sod 3.375 gm/Dextrose 115 ml @ 28.75 mls/ hr Q8H IV 12/13/16 09:00 12/29/16 08:59 12/20/16 09:14 28.75 MLS/HR Piperacillin Sod/ Tazobactam Sod (Consult) 1 ea UD PRN N/A 12/13/16 07:00 01/12/17 06:59 Heparin Sodium (Porcine) (Heparin 10 Unit/ ml 5 ml Flush) 5 ml PRN PRN FLUSH 12/14/16 01:30 01/13/17 01:29 12/20/16 05:31 5 ML Diphenhydramine HCl (Benadryl Inj) 25 mg TID PRN IV 12/14/16 15:15 01/13/17 15:14 12/20/16 05:30 25 MG Hydromorphone HCl (Dilaudid Inj) 0.5 mg Q6H PRN IV 12/18/16 22:00 01/01/17 21:59 12/20/16 05:31 0.5 MG Acetaminophen (Tylenol Tab) 1,000 mg Q8H PRN PO 12/19/16 15:15 01/18/17 15:14 12/20/16 09:14 1,000 MG
[2016-12-21] VITALS (9 sets, daily range): BP systolic 100–165; BP diastolic 54–75; PULSE 97–113; TEMP 38.5–39.5; O2SAT 92–98
[2016-12-21] MEDS: PIPERACILL/TAZOBAC IV 4.5 GM in DEXTROSE 5% 100ML IV SCH ×2 (00:29→08:56)
[2016-12-21] MEDS: IBUPROFEN 800 MG TAB PO PRN ×3 (00:30→18:32)
[2016-12-21] MEDS: OXYCODONE HCL IR 5 MG TAB (IMMEDIATE RELEASE) PO PRN ×3 (01:59→16:29)
[2016-12-21 06:04] LABS: BASO % 0.5 %; BASO ABS # 0.05 K/uL (0-0.2); COMPLETE YES; HEMATOCRIT 36.1 % (42-52); IG% 0.3 %; LYMPH % 16.6 %; LYMPH ABS # 1.66 K/uL (1.2-3.4); MEAN CORPUSCULAR HEMOGLOBIN 24.1 pg (25-34); MEAN CORPUSCULAR HGB CONC 31.3 g/dl (32-36); MEAN PLATELET VOLUME 10.4 fL (7.4-10.4); NEUT % 67.6 %; PLATELET COUNT 195 K/uL (130-400); RED BLOOD COUNT 4.69 M/uL (4.7-6.1); WHITE BLOOD COUNT 10.01 K/uL (4.8-10.8)
[2016-12-21] MEDS: DiphenhydrAMINE HCL 50 MG/ML VIAL IV PRN ×3 (06:18→22:29)
[2016-12-21] MEDS: HYDROmorphone INJ 0.5 MG/0.5 ML SYR IV PRN ×3 (06:26→22:30)
[2016-12-21] MEDS: ACETAMINOPHEN 500 MG TAB PO PRN ×2 (06:30→16:28)
[2016-12-21 06:35] LABS: BUN/CREATININE RATIO 7.8 (10-20); CREATININE 1.2 mg/dl (0.60-1.40); POTASSIUM 3.4 mmol/L (3.5-5.1)
[2016-12-21 07:04] LABS: CALCIUM 8.4 mg/dl (8.5-10.1)
[2016-12-21] MEDS: SODIUM CHLORIDE 0.9% IV SCH (08:04)
[2016-12-21] MEDS: GABAPENTIN 600 MG TAB PO SCH ×3 (08:04→20:30)
[2016-12-21] MEDS: DAPTOMYCIN IV SCH (08:04)
[2016-12-21] MEDS: POTASSIUM CHLORIDE 20 MEQ TABCR PO SCH (08:07)
[2016-12-21] MEDS: OXYCODONE HCL 10 MG TABCR (OXYCONTIN) PO SCH ×2 (08:13→20:30)
[2016-12-21] MEDS: AZTREONAM IV 2,000 MG in DEXTROSE 5% 100ML 100 ML IV SCH ×2 (11:46→18:31)
--- NOTE | 2016-12-21 14:29 | DIAGNOSTIC IMAGING REPORT ---
ABDOMINAL ULTRASOUND, RIGHT UPPER QUADRANT HISTORY: fever, RUQ pain. COMPARISON: Abdomen and pelvis CT 12/20/2015. FINDINGS: Pancreas: Obscured by overlying bowel gas. Liver: Unremarkable. Gallbladder: No gallbladder wall thickening. No gallstones. CBD: 4 mm. Right kidney: No hydronephrosis. There are 2 stones within the right kidney measuring 7 mm and 4 mm. IMPRESSION: 1. No gallstones. No gallbladder wall thickening. 2. Right-sided nephrolithiasis. No hydronephrosis. 3. The pancreas was obscured by overlying bowel gas. Electronically signed by: Eddie Vizcarra M.D. 12/21/2016 2:28 PM Dictated Date/Time: 12/21/2016 2:26 PM
[2016-12-22] VITALS (10 sets, daily range): BP systolic 94–114; BP diastolic 49–77; PULSE 94–149; TEMP 37.5–39.5; O2SAT 90–97
[2016-12-22] MEDS: OXYCODONE HCL IR 5 MG TAB (IMMEDIATE RELEASE) PO PRN ×2 (02:41→09:23)
[2016-12-22] MEDS: AZTREONAM IV 2,000 MG in DEXTROSE 5% 100ML 100 ML IV SCH ×3 (03:24→18:46)
--- NOTE | 2016-12-22 05:04 | Progress Note ---
Medicine Progress Note Date & Time of Visit: Dec 21, 2016 at 11:20 . Subjective Persistent fever and chills. Ongoing right shoulder pain. Diffuse myalgias. No cough. Experiencing nausea and vomiting. No diarrhea., No dysuria. . Objective Last 8 Hrs Date Time Temp Pulse Resp B/P (MAP) Pulse Ox O2 Delivery O2 Flow Rate FiO2 12/21/16 11:18 38.5 97 24 100/54 (69) 93 12/21/16 09:00 39.4 12/21/16 09:00 Room Air 12/21/16 07:01 39.5 108 20 108/69 (82) 92 12/21/16 06:30 39.4 Physical Exam: General- lying in bed; appears to be uncomfortable Lungs- clear Heart- RRR Abdomen- + BS, soft, moderate RUQ tenderness without rebound Extremities- swelling right shoulder, no drainage, no erythema; no pretibial edema or calf tenderness Neuro- alert . Laboratory Results: Last 24 Hours Test 12/20/16 15:55 12/20/16 16:56 12/21/16 05:35 Urine Color YELLOW Urine Appearance CLEAR Urine pH 5.5 Urine Specific [place] 1.033 Urine Protein 2+ Urine Glucose (UA) NEG Urine Ketones TRACE Urine Occult Blood NEG Urine Nitrite NEG Urine Bilirubin NEG Urine Urobilinogen NEG Urine Leukocyte Esterase NEG Urine WBC (Auto) 1-5 /hpf Urine RBC (Auto) 0-4 /hpf Urine Hyaline Casts (Auto) 1-5 /lpf Urine Epithelial Cells (Auto) 10-20 /lpf Urine Bacteria (Auto) NEG Procalcitonin 0.47 ng/ml White Blood Count 10.01 K/uL Red Blood Count 4.69 M/uL Hemoglobin 11.3 g/dL Hematocrit 36.1 % Mean Corpuscular Volume 77.0 fL Mean Corpuscular Hemoglobin 24.1 pg Mean Corpuscular Hemoglobin Concent 31.3 g/dl Platelet Count 195 K/uL Mean Platelet Volume 10.4 fL Neutrophils (%) (Auto) 67.6 % Lymphocytes (%) (Auto) 16.6 % Monocytes (%) (Auto) 12.0 % Eosinophils (%) (Auto) 3.0 % Basophils (%) (Auto) 0.5 % Neutrophils # (Auto) 6.77 K/uL Lymphocytes # (Auto) 1.66 K/uL Monocytes # (Auto) 1.20 K/uL Eosinophils # (Auto) 0.30 K/uL Basophils # (Auto) 0.05 K/uL RDW Standard Deviation 48.5 fL RDW Coefficient of Variation 17.3 % Immature Granulocyte % (Auto) 0.3 % Immature Granulocyte # (Auto) 0.03 K/uL Sodium Level 136 mmol/L Potassium Level 3.4 mmol/L Chloride Level 102 mmol/L Carbon Dioxide Level 28 mmol/L Anion Gap 6.0 mmol/L Blood Urea Nitrogen 9 mg/dl Creatinine 1.20 mg/dl Est Creatinine Clear Calc Drug Dose 95.1 ml/min Estimated GFR () 87.8 Estimated GFR (Non- 75.7 BUN/Creatinine Ratio 7.8 Random Glucose 94 mg/dl Calcium Level 8.4 mg/dl Total Creatine Kinase 32 U/L Date/Time Source Procedure Growth Status 12/21/16 05:35 Blood Fungal Smear - Final Resulted 12/21/16 05:35 Blood Fungal Culture Pending Resulted Assessment & Plan RIGHT SHOULDER INFECTION 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 Ortho and ID consulted. Wound culture grew Morganella morganii and Proteus vulgaris. No apparent abscess per US. MRI did not show any apparent abscess, osteomyelitis, or other evidence of deep infection. ID recommends changing antibiotic therapy to aztreonam due to possible drug fever. FEVERS Became febrile the morning of 12/19/16. Experiencing headaches and diffuse myalgias, no other specific symptoms. Repeat blood cultures obtained- negative . No apparent abscess or osteomyelitis of right shoulder per MRI. Intermittent soft stools. Check for C. difficile. No infiltrates on CXR 12/20. Consider line infection. Consider occult infection (endocarditis, discitis / epidural abscess, etc). Consider drug fever. Has RUQ tenderness. Consider cholecystitis. Check US. VTE PROPHYLAXIS SCD's. Ambulate. DISPOSITION Expected discharge to home. Ortho follow-up with Dr. Byrd. . Current Inpatient Medications: Current Inpatient Medications Medications (Trade) Dose Ordered Sig/Diane Route Start Time Stop Time Status Last Admin Dose Admin Gabapentin (Neurontin Tab) 600 mg TID PO 12/13/16 08:00 01/12/17 08:59 12/21/16 08:04 600 MG Oxycodone HCl (Oxycontin Tab) 10 mg Q12H PO 12/13/16 09:00 12/27/16 08:59 12/21/16 08:13 10 MG Oxycodone HCl (Roxicodone Immediate Rel Tab) 10 mg Q6 PRN PO 12/13/16 03:15 01/12/17 03:14 12/21/16 08:14 10 MG Heparin Sodium (Porcine) (Heparin 10 Unit/ ml 5 ml Flush) 5 ml PRN PRN FLUSH 12/14/16 01:30 01/13/17 01:29 12/21/16 13:10 5 ML Diphenhydramine HCl (Benadryl Inj) 25 mg TID PRN IV 12/14/16 15:15 01/13/17 15:14 12/21/16 06:18 25 MG Hydromorphone HCl (Dilaudid Inj) 0.5 mg Q6H PRN IV 12/18/16 22:00 01/01/17 21:59 12/21/16 06:26 0.5 MG Acetaminophen (Tylenol Tab) 1,000 mg Q8H PRN PO 12/19/16 15:15 01/18/17 15:14 12/21/16 06:30 1,000 MG Ibuprofen (Motrin Tab) 800 mg Q8H PRN PO 12/20/16 13:15 01/19/17 13:14 12/21/16 08:15 800 MG Potassium Chloride (Klor-Con Tab) 20 meq QAM PO 12/21/16 08:00 01/20/17 07:59 12/21/16 08:07 20 MEQ Aztreonam 2000 mg/ Dextrose 110 ml @ 100 mls/hr Q8H IV 12/21/16 11:00 12/31/16 10:59 12/21/16 11:46 100 MLS/HR
[2016-12-22] MEDS: DiphenhydrAMINE HCL 50 MG/ML VIAL IV PRN ×3 (06:46→23:11)
[2016-12-22] MEDS: HYDROmorphone INJ 0.5 MG/0.5 ML SYR IV PRN ×3 (06:46→23:11)
[2016-12-22 07:04] LABS: BASO % 0.3 %; BASO ABS # 0.03 K/uL (0-0.2); COMPLETE YES; EOS % 3.1 %; IG% 0.1 %; LYMPH % 17.4 %; LYMPH ABS # 1.62 K/uL (1.2-3.4); MEAN CELL VOLUME 75.8 fL (80-100); MEAN CORPUSCULAR HEMOGLOBIN 24.4 pg (25-34); MEAN CORPUSCULAR HGB CONC 32.2 g/dl (32-36); MEAN PLATELET VOLUME 9.4 fL (7.4-10.4); MONO % 15.6 %; NEUT % 63.5 %; PLATELET COUNT 191 K/uL (130-400); RED BLOOD COUNT 4.88 M/uL (4.7-6.1)
[2016-12-22 07:40] LABS: BUN/CREATININE RATIO 10.6 (10-20); CREATININE 0.99 mg/dl (0.60-1.40); POTASSIUM 3.5 mmol/L (3.5-5.1)
[2016-12-22 07:42] LABS: ALB/GLOB RATIO 0.7 (0.9-2)
[2016-12-22] MEDS: IBUPROFEN 800 MG TAB PO PRN (08:05)
[2016-12-22] MEDS: POTASSIUM CHLORIDE 20 MEQ TABCR PO SCH (08:06)
[2016-12-22] MEDS: GABAPENTIN 600 MG TAB PO SCH ×3 (08:06→19:49)
[2016-12-22] MEDS: OXYCODONE HCL 10 MG TABCR (OXYCONTIN) PO SCH ×2 (09:22→19:49)
--- NOTE | 2016-12-22 11:16 | DIAGNOSTIC IMAGING REPORT ---
CT OF THE CHEST WITHOUT IV CONTRAST CLINICAL HISTORY: Fever. Cough. Right shoulder pain. COMPARISON STUDY: CT of the chest December 20, 2015 and chest radiograph December 20, 2016. CT DOSE: 1632.69 mGy.cm TECHNIQUE: Axial images of the chest were obtained without IV contrast. Images were reviewed in the axial, sagittal, and coronal planes. IV contrast was not administered for this examination. FINDINGS: No enlarged axillary, mediastinal or hilar lymph nodes are present. A right internal jugular [id number] is in place. The size of the heart is normal. There is no pericardial effusion. There is no pneumomediastinum. No pneumothorax or pleural effusion is present. There is no significant consolidation. There are mild groundglass opacities within the dependent aspects of the lower lobes. There are scattered linear and small nodular densities within lungs which favor atelectasis. Central airways are patent. Bony thorax is unremarkable. Abdomen and pelvis will be reported separately. However, mild splenomegaly is similar to prior CT of December 20, 2015. There is a 3 mm calculus within the upper pole of the left kidney. IMPRESSION: 1. No significant abnormality within the chest. 2. Mild dependent and groundglass opacities within the lower lobes with a few scattered linear and nodular opacities within the lungs which favor atelectasis. A mild infectious process is considered less likely. Electronically signed by: Onel Alcaraz M.D. 12/22/2016 11:14 AM Dictated Date/Time: 12/22/2016 11:08 AM
--- NOTE | 2016-12-22 11:18 | DIAGNOSTIC IMAGING REPORT ---
ABDOMEN AND PELVIS CT WITHOUT CONTRAST CT DOSE: HISTORY: fever, generalized abdominal pain, nausea, vomiting TECHNIQUE: Multiaxial CT images of the abdomen and pelvis were performed without contrast. COMPARISON STUDY: Abdomen and pelvis CT 12/20/2015. FINDINGS: The lung bases are clear. No pneumoperitoneum. No pneumatosis. The unenhanced liver, gallbladder, pancreas, and adrenal glands are unremarkable. Multiple punctate bilateral renal calculi. No hydronephrosis. No retroperitoneal lymphadenopathy. The spleen remains borderline enlarged. Bladder is underdistended which limits evaluation. Suboptimal evaluation for bowel pathology due to the lack of intravenous and oral contrast. However, there is no definite bowel wall thickening or obstruction. Fluid within the colon. This raises the possibility of a gastroenteritis. Normal appendix. IMPRESSION: 1. No definite bowel wall thickening or obstruction. 2. Fluid-filled colon. This raises the possibility of a gastroenteritis. 3. Bilateral nephrolithiasis. No hydronephrosis. 4. Stable borderline splenomegaly. Electronically signed by: Eddie Vizcarra M.D. 12/22/2016 11:16 AM Dictated Date/Time: 12/22/2016 11:11 AM
[2016-12-22 13:49] LABS: LYME DISEASE AB IGG NEG (NEG)
[2016-12-22 13:52] LABS: LYME DISEASE AB IGM NEG (NEG)
--- NOTE | 2016-12-22 20:31 | Progress Note ---
Medicine Progress Note Date & Time of Visit: Dec 22, 2016 at ~ 09:45 . Subjective Persistent fever. Persistent diffuse myalgias. Occasional cough. Persistent nausea and vomiting. No loose stools for several days. Requesting IV hydromorphone for severe pain on a fairly regular basis. Requesting IV diphenhydramine on regular basis. (Patient states that he was experiencing severe pruritus after receiving piperacillin/tazobactam, but now he is on a different antibiotic regimen and still requesting diphenhydramine.) . Objective Last 8 Hrs Date Time Temp Pulse Resp B/P (MAP) Pulse Ox O2 Delivery O2 Flow Rate FiO2 12/22/16 09:26 39.0 12/22/16 07:57 39.5 149 28 109/49 (69) 92 Room Air Physical Exam: General- lying in bed; appears to be uncomfortable Lungs- clear Heart- RRR Abdomen- + BS, soft, mild RUQ tenderness without rebound Extremities- mild swelling right shoulder unchanged, no drainage, no erythema; no pretibial edema or calf tenderness Neuro- alert . Laboratory Results: Last 24 Hours Test 12/22/16 06:36 White Blood Count 9.30 K/uL Red Blood Count 4.88 M/uL Hemoglobin 11.9 g/dL Hematocrit 37.0 % Mean Corpuscular Volume 75.8 fL Mean Corpuscular Hemoglobin 24.4 pg Mean Corpuscular Hemoglobin Concent 32.2 g/dl Platelet Count 191 K/uL Mean Platelet Volume 9.4 fL Neutrophils (%) (Auto) 63.5 % Lymphocytes (%) (Auto) 17.4 % Monocytes (%) (Auto) 15.6 % Eosinophils (%) (Auto) 3.1 % Basophils (%) (Auto) 0.3 % Neutrophils # (Auto) 5.90 K/uL Lymphocytes # (Auto) 1.62 K/uL Monocytes # (Auto) 1.45 K/uL Eosinophils # (Auto) 0.29 K/uL Basophils # (Auto) 0.03 K/uL RDW Standard Deviation 46.1 fL RDW Coefficient of Variation 16.7 % Immature Granulocyte % (Auto) 0.1 % Immature Granulocyte # (Auto) 0.01 K/uL Sodium Level 134 mmol/L Potassium Level 3.5 mmol/L Chloride Level 101 mmol/L Carbon Dioxide Level 27 mmol/L Anion Gap 6.0 mmol/L Blood Urea Nitrogen 10 mg/dl Creatinine 0.99 mg/dl Est Creatinine Clear Calc Drug Dose 115.3 ml/min Estimated GFR () 110.7 Estimated GFR (Non- 95.5 BUN/Creatinine Ratio 10.6 Random Glucose 103 mg/dl Calcium Level 9.0 mg/dl Total Bilirubin 0.6 mg/dl Aspartate Amino Transf (AST/SGOT) 30 U/L Alanine Aminotransferase (ALT/SGPT) 52 U/L Alkaline Phosphatase 89 U/L Total Protein 7.2 gm/dl Albumin 3.0 gm/dl Globulin 4.2 gm/dl Albumin/Globulin Ratio 0.7 Lipase 83 U/L Assessment & Plan RIGHT SHOULDER INFECTION 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 Ortho and ID consulted. Wound culture grew Morganella morganii and Proteus vulgaris. No apparent abscess per US. MRI 12/19did not show any apparent abscess, osteomyelitis, or other evidence of deep infection. ID recommended changing antibiotic therapy to aztreonam due to possible drug fever. FEVERS Became febrile the morning of 12/19/16. Experiencing headaches and diffuse myalgias, no other specific symptoms. Repeat blood cultures obtained- negative . No apparent abscess or osteomyelitis of right shoulder per MRI. Intermittent soft stools, but none for a few days. Check for C. difficile if diarrhea occurs. No infiltrates on CXR 12/20. Consider line infection. Consider occult infection (endocarditis, discitis / epidural abscess, etc). Consider drug fever. Has RUQ tenderness. Considered cholecystitis. Ultrasound did not show any cholelithiasis or apparent cholecystitis. Right- sided nephrolithiasis without hydronephrosis was noted. More chest congestion this morning. Ongoing abdominal pain. Ongoing fevers. Check CT of chest, abdomen, pelvis. CHRONIC PAIN Taper analgesics as tolerated. VTE PROPHYLAXIS Refusing SCD's. Check INR, PTT with next labs and start enoxaparin. Encourage ambulation. DISPOSITION Expected discharge to home. Ortho follow-up with Dr. Byrd. ADDENDUM: Nursing staff noted (1) reported medications, including oxycodone and (2) syringes in the patient's room. Charge nurse spoke with the patient. . Current Inpatient Medications: Current Inpatient Medications Medications (Trade) Dose Ordered Sig/Diane Route Start Time Stop Time Status Last Admin Dose Admin Gabapentin (Neurontin Tab) 600 mg TID PO 12/13/16 08:00 01/12/17 08:59 12/22/16 08:06 600 MG Oxycodone HCl (Oxycontin Tab) 10 mg Q12H PO 12/13/16 09:00 12/27/16 08:59 12/22/16 09:22 10 MG Oxycodone HCl (Roxicodone Immediate Rel Tab) 10 mg Q6 PRN PO 12/13/16 03:15 01/12/17 03:14 12/22/16 09:23 10 MG Heparin Sodium (Porcine) (Heparin 10 Unit/ ml 5 ml Flush) 5 ml PRN PRN FLUSH 12/14/16 01:30 01/13/17 01:29 12/22/16 08:59 5 ML Diphenhydramine HCl (Benadryl Inj) 25 mg TID PRN IV 12/14/16 15:15 01/13/17 15:14 12/22/16 06:46 25 MG Hydromorphone HCl (Dilaudid Inj) 0.5 mg Q6H PRN IV 12/18/16 22:00 01/01/17 21:59 12/22/16 06:46 0.5 MG Acetaminophen (Tylenol Tab) 1,000 mg Q8H PRN PO 12/19/16 15:15 01/18/17 15:14 12/21/16 16:28 1,000 MG Ibuprofen (Motrin Tab) 800 mg Q8H PRN PO 12/20/16 13:15 01/19/17 13:14 12/22/16 08:05 800 MG Potassium Chloride (Klor-Con Tab) 20 meq QAM PO 12/21/16 08:00 01/20/17 07:59 12/22/16 08:06 20 MEQ Aztreonam 2000 mg/ Dextrose 110 ml @ 100 mls/hr Q8H IV 12/21/16 11:00 12/31/16 10:59 12/22/16 03:24 100 MLS/HR
[2016-12-23] VITALS (8 sets, daily range): BP systolic 95–150; BP diastolic 58–77; PULSE 88–105; TEMP 36.9–37.8; O2SAT 89–93
[2016-12-23] MEDS: OXYCODONE HCL IR 5 MG TAB (IMMEDIATE RELEASE) PO PRN ×3 (02:48→23:18)
[2016-12-23] MEDS: AZTREONAM IV 2,000 MG in DEXTROSE 5% 100ML 100 ML IV SCH ×3 (03:43→19:28)
[2016-12-23 06:09] LABS: BASO % 0.5 %; BASO ABS # 0.05 K/uL (0-0.2); COMPLETE YES; EOS % 3.8 %; HEMATOCRIT 35.1 % (42-52); IG% 0.3 %; LYMPH % 12.6 %; LYMPH ABS # 1.31 K/uL (1.2-3.4); MEAN CELL VOLUME 75.2 fL (80-100); MEAN CORPUSCULAR HEMOGLOBIN 23.1 pg (25-34); MEAN CORPUSCULAR HGB CONC 30.8 g/dl (32-36); MEAN PLATELET VOLUME 10.2 fL (7.4-10.4); MONO % 14.8 %; PLATELET COUNT 215 K/uL (130-400); RED BLOOD COUNT 4.67 M/uL (4.7-6.1); WHITE BLOOD COUNT 10.42 K/uL (4.8-10.8)
[2016-12-23 06:22] LABS: INR 1.1 (0.9-1.1); PARTIAL THROMBOPLASTIN RATIO 1.2; PROTHROMBIN TIME (PATIENT) 11.4 SECONDS (9.0-12.0)
[2016-12-23 06:40] LABS: BUN/CREATININE RATIO 12.9 (10-20); CALCIUM 8.4 mg/dl (8.5-10.1); CREATININE 0.92 mg/dl (0.60-1.40); POTASSIUM 3.3 mmol/L (3.5-5.1)
[2016-12-23] MEDS: GABAPENTIN 600 MG TAB PO SCH ×3 (08:34→19:28)
[2016-12-23] MEDS: POTASSIUM CHLORIDE 20 MEQ TABCR PO SCH (08:34)
[2016-12-23] MEDS: OXYCODONE HCL 10 MG TABCR (OXYCONTIN) PO SCH ×2 (08:39→20:54)
[2016-12-23] MEDS ORDERED: ENOXAPARIN 40 MG/0.4 ML SYR SQ ONE (10:30)
[2016-12-23] MEDS: HYDROmorphone INJ 0.5 MG/0.5 ML SYR IV PRN ×2 (12:42→19:27)
[2016-12-23] MEDS: DiphenhydrAMINE HCL 50 MG/ML VIAL IV PRN (19:27)
--- NOTE | 2016-12-23 22:50 | Progress Note ---
Medicine Progress Note Date & Time of Visit: Dec 23, 2016 at 09:40 . Subjective Staff found several items in patient's room yesterday: (1) hoarded tablets, including oxycodone (2) syringes (patient's own supplies for maintenance of Patten cath) (3) used hydromorphone Carpuject Temps seem to be trending downward, but still experiencing sweats. Occasional cough. O2 sats low at times, improve with deep inspiration. Ongoing nausea. No emesis since yesterday. No BM's for a few days. Spends most of his time in bed. Prefers not to ambulate in hallway. Using IV hydromorphone on regular basis. Using IV diphenhydramine on regular basis- states that he gets urticaria with "all antibiotics". . Objective Last 8 Hrs Date Time Temp Pulse Resp B/P (MAP) Pulse Ox O2 Delivery O2 Flow Rate FiO2 12/23/16 20:25 37.5 98 20 123/75 (91) 93 Room Air 12/23/16 20:00 Room Air 12/23/16 16:00 93 Room Air 12/23/16 15:21 37.4 104 18 150/77 (101) 93 Room Air Physical Exam: General- lying in bed; no acute distress Lungs- bibasilar rales that improve with inspiration, mild wheezing Heart- RRR Abdomen- + BS, soft, mild RUQ tenderness without rebound Extremities- mild swelling right shoulder unchanged, no drainage, no erythema; no pretibial edema or calf tenderness Neuro- alert Skin- no urticaria . Laboratory Results: Last 24 Hours Test 12/23/16 05:50 White Blood Count 10.42 K/uL Red Blood Count 4.67 M/uL Hemoglobin 10.8 g/dL Hematocrit 35.1 % Mean Corpuscular Volume 75.2 fL Mean Corpuscular Hemoglobin 23.1 pg Mean Corpuscular Hemoglobin Concent 30.8 g/dl Platelet Count 215 K/uL Mean Platelet Volume 10.2 fL Neutrophils (%) (Auto) 68.0 % Lymphocytes (%) (Auto) 12.6 % Monocytes (%) (Auto) 14.8 % Eosinophils (%) (Auto) 3.8 % Basophils (%) (Auto) 0.5 % Neutrophils # (Auto) 7.09 K/uL Lymphocytes # (Auto) 1.31 K/uL Monocytes # (Auto) 1.54 K/uL Eosinophils # (Auto) 0.40 K/uL Basophils # (Auto) 0.05 K/uL RDW Standard Deviation 46.4 fL RDW Coefficient of Variation 16.8 % Immature Granulocyte % (Auto) 0.3 % Immature Granulocyte # (Auto) 0.03 K/uL Prothrombin Time 11.4 SECONDS Prothromb Time International Ratio 1.1 Activated Partial Thromboplast Time 30.3 SECONDS Partial Thromboplastin Ratio 1.2 Sodium Level 136 mmol/L Potassium Level 3.3 mmol/L Chloride Level 100 mmol/L Carbon Dioxide Level 30 mmol/L Anion Gap 6.0 mmol/L Blood Urea Nitrogen 12 mg/dl Creatinine 0.92 mg/dl Est Creatinine Clear Calc Drug Dose 124.0 ml/min Estimated GFR () 121.0 Estimated GFR (Non- 104.4 BUN/Creatinine Ratio 12.9 Random Glucose 97 mg/dl Calcium Level 8.4 mg/dl Assessment & Plan RIGHT SHOULDER INFECTION 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 Ortho and ID consulted. Wound culture grew Morganella morganii and Proteus vulgaris. No apparent abscess per US. MRI 12/19did not show any apparent abscess, osteomyelitis, or other evidence of deep infection. ID changed antibiotic therapy to aztreonam due to possible drug fever. FEVERS Became febrile the morning of 12/19/16. Experiencing headaches and diffuse myalgias, no other specific symptoms. Repeat blood cultures obtained- negative . No apparent abscess or osteomyelitis of right shoulder per MRI. Intermittent soft stools, but none for a few days. Check for C. difficile if diarrhea occurs. No infiltrates on CXR 12/20. Consider line infection. Consider occult infection (endocarditis, discitis / epidural abscess, etc). Consider drug fever. Had RUQ tenderness. Considered cholecystitis. Ultrasound did not show any cholelithiasis or apparent cholecystitis. Right- sided nephrolithiasis without hydronephrosis was noted. No source of infection per CT of chest, abdomen, pelvis. Temp trending downward. PULMONARY ATELECTASIS O2 sats low at times, improve with deep breathing. Pulmonary atelectasis noted on imaging. Deep breathing, incentive spirometry, ambulation, cutting back on sedating meds recommended. CHRONIC PAIN Taper analgesics as tolerated. DIPHENHYDRAMINE USE Patient requesting diphenhydramine administration with each dose of antibiotics. Concerned about sedation, atelectasis, etc. He states that he gets itching and urticaria with "all antibiotics." Explained that allergy to all antibiotics very unlikely. Decreased utilization of diphenhydramine encouraged. VTE PROPHYLAXIS Refused SCD's. SQ enoxaparin. Encourage ambulation. DISPOSITION Expected discharge to home. Ortho follow-up with Dr. Byrd. . Current Inpatient Medications: Current Inpatient Medications Medications (Trade) Dose Ordered Sig/Diane Route Start Time Stop Time Status Last Admin Dose Admin Gabapentin (Neurontin Tab) 600 mg TID PO 12/13/16 08:00 01/12/17 08:59 12/23/16 19:28 600 MG Oxycodone HCl (Oxycontin Tab) 10 mg Q12H PO 12/13/16 09:00 12/27/16 08:59 12/23/16 20:54 10 MG Oxycodone HCl (Roxicodone Immediate Rel Tab) 10 mg Q6 PRN PO 12/13/16 03:15 01/12/17 03:14 12/23/16 16:42 10 MG Heparin Sodium (Porcine) (Heparin 10 Unit/ ml 5 ml Flush) 5 ml PRN PRN FLUSH 12/14/16 01:30 01/13/17 01:29 12/23/16 20:54 5 ML Diphenhydramine HCl (Benadryl Inj) 25 mg TID PRN IV 12/14/16 15:15 01/13/17 15:14 12/23/16 19:27 25 MG Hydromorphone HCl (Dilaudid Inj) 0.5 mg Q6H PRN IV 12/18/16 22:00 01/01/17 21:59 12/23/16 19:27 0.5 MG Acetaminophen (Tylenol Tab) 1,000 mg Q8H PRN PO 12/19/16 15:15 01/18/17 15:14 12/21/16 16:28 1,000 MG Ibuprofen (Motrin Tab) 800 mg Q8H PRN PO 12/20/16 13:15 01/19/17 13:14 12/22/16 08:05 800 MG Potassium Chloride (Klor-Con Tab) 20 meq QAM PO 12/21/16 08:00 01/20/17 07:59 12/23/16 08:34 20 MEQ Aztreonam 2000 mg/ Dextrose 110 ml @ 100 mls/hr Q8H IV 12/21/16 11:00 12/31/16 10:59 12/23/16 19:28 100 MLS/HR Enoxaparin Sodium (Lovenox Inj) 40 mg QAM SQ 12/24/16 08:00 01/23/17 07:59
[2016-12-23] MEDS: ACETAMINOPHEN 500 MG TAB PO PRN (23:16)
[2016-12-24] VITALS (7 sets, daily range): BP systolic 90–109; BP diastolic 58–62; PULSE 81–91; TEMP 36.7–37.3; O2SAT 90–100
[2016-12-24] MEDS: AZTREONAM IV 2,000 MG in DEXTROSE 5% 100ML 100 ML IV SCH ×3 (03:00→18:32)
[2016-12-24] MEDS: DiphenhydrAMINE HCL 50 MG/ML VIAL IV PRN ×3 (03:15→21:31)
[2016-12-24] MEDS: HYDROmorphone INJ 0.5 MG/0.5 ML SYR IV PRN ×3 (03:15→21:31)
[2016-12-24] MEDS: GABAPENTIN 600 MG TAB PO SCH ×3 (08:30→19:49)
[2016-12-24] MEDS: PANTOprazole SOD 40 MG TAB PO SCH (08:30)
[2016-12-24] MEDS: ENOXAPARIN 40 MG/0.4 ML SYR SQ SCH (08:31)
[2016-12-24] MEDS: POTASSIUM CHLORIDE 20 MEQ TABCR PO SCH (08:31)
[2016-12-24] MEDS: OXYCODONE HCL 10 MG TABCR (OXYCONTIN) PO SCH ×2 (08:35→21:30)
[2016-12-24] MEDS: OXYCODONE HCL IR 5 MG TAB (IMMEDIATE RELEASE) PO PRN ×2 (11:43→18:17)
--- NOTE | 2016-12-24 19:11 | Progress Note ---
Medicine Progress Note Date & Time of Visit: Dec 24, 2016 at 14:40 . Subjective Low-grade fever last evening, but temps running lower. No cough or shortness of breath. No nausea or vomiting. No diarrhea. Right shoulder pain unchanged. . Objective Last 8 Hrs Date Time Temp Pulse Resp B/P (MAP) Pulse Ox O2 Delivery O2 Flow Rate FiO2 12/24/16 16:00 93 Room Air 12/24/16 15:18 37.1 81 18 90/59 (69) 93 Room Air Physical Exam: General- no distress Lungs- clear Heart- RRR Abdomen- + BS, soft, nontender Extremities- no pretibial edema or calf tenderness Neuro- alert . 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 Ortho and ID consulted. Wound culture grew Morganella morganii and Proteus vulgaris. No apparent abscess per US. MRI 12/19did not show any apparent abscess, osteomyelitis, or other evidence of deep infection. ID changed antibiotic therapy to aztreonam due to possible drug fever. FEVERS Became febrile the morning of 12/19/16. Experiencing headaches and diffuse myalgias, no other specific symptoms. Repeat blood cultures obtained- negative . No apparent abscess or osteomyelitis of right shoulder per MRI. Intermittent soft stools, but none for a few days. Check for C. difficile if diarrhea occurs. No infiltrates on CXR 12/20. Consider line infection. Consider occult infection (endocarditis, discitis / epidural abscess, etc). Consider drug fever. Had RUQ tenderness. Considered cholecystitis. Ultrasound did not show any cholelithiasis or apparent cholecystitis. Right- sided nephrolithiasis without hydronephrosis was noted. No source of infection per CT of chest, abdomen, pelvis. Temp trending downward. Blood culture from 12/21/16 growing yeast. We'll continue to coordinate management with Infectious Disease. PULMONARY ATELECTASIS O2 sats low at times, improve with deep breathing. Pulmonary atelectasis noted on imaging. Deep breathing, incentive spirometry, ambulation, cutting back on sedating meds recommended. Sats, exam improved today. CHRONIC PAIN Taper analgesics as tolerated. VTE PROPHYLAXIS Refused SCD's. Now receiving SQ enoxaparin. Encourage ambulation. DISPOSITION Expected discharge to home. Ortho follow-up with Dr. Byrd. . Current Inpatient Medications: Current Inpatient Medications Medications (Trade) Dose Ordered Sig/Diane Route Start Time Stop Time Status Last Admin Dose Admin Gabapentin (Neurontin Tab) 600 mg TID PO 12/13/16 08:00 01/12/17 08:59 12/24/16 15:12 600 MG Oxycodone HCl (Oxycontin Tab) 10 mg Q12H PO 12/13/16 09:00 12/27/16 08:59 12/24/16 08:35 10 MG Oxycodone HCl (Roxicodone Immediate Rel Tab) 10 mg Q6 PRN PO 12/13/16 03:15 01/12/17 03:14 12/24/16 18:17 10 MG Heparin Sodium (Porcine) (Heparin 10 Unit/ ml 5 ml Flush) 5 ml PRN PRN FLUSH 12/14/16 01:30 01/13/17 01:29 12/24/16 13:10 5 ML Diphenhydramine HCl (Benadryl Inj) 25 mg TID PRN IV 12/14/16 15:15 01/13/17 15:14 12/24/16 13:10 25 MG Hydromorphone HCl (Dilaudid Inj) 0.5 mg Q6H PRN IV 12/18/16 22:00 01/01/17 21:59 12/24/16 13:10 0.5 MG Acetaminophen (Tylenol Tab) 1,000 mg Q8H PRN PO 12/19/16 15:15 01/18/17 15:14 12/23/16 23:16 1,000 MG Ibuprofen (Motrin Tab) 800 mg Q8H PRN PO 12/20/16 13:15 01/19/17 13:14 12/22/16 08:05 800 MG Potassium Chloride (Klor-Con Tab) 20 meq QAM PO 12/21/16 08:00 01/20/17 07:59 12/24/16 08:31 20 MEQ Aztreonam 2000 mg/ Dextrose 110 ml @ 100 mls/hr Q8H IV 12/21/16 11:00 12/31/16 10:59 12/24/16 18:32 100 MLS/HR Enoxaparin Sodium (Lovenox Inj) 40 mg QAM SQ 12/24/16 08:00 01/23/17 07:59 12/24/16 08:31 40 MG Pantoprazole Sodium (Protonix Tab) 40 mg QAM PO 12/24/16 08:00 01/23/17 07:59 12/24/16 08:30 40 MG
[2016-12-25] VITALS: O2SAT 93
[2016-12-25] MEDS: AZTREONAM IV 2,000 MG in DEXTROSE 5% 100ML 100 ML IV SCH ×3 (02:42→19:09)
[2016-12-25 03:42] VITALS: BP 97/63; PULSE 76; TEMP 37; O2SAT 97
[2016-12-25 05:56] LABS: HEMATOCRIT 33.9 % (42-52); MEAN CELL VOLUME 76.7 fL (80-100); MEAN CORPUSCULAR HEMOGLOBIN 24.9 pg (25-34); MEAN CORPUSCULAR HGB CONC 32.4 g/dl (32-36); MEAN PLATELET VOLUME 10.2 fL (7.4-10.4); PLATELET COUNT 285 K/uL (130-400); RED BLOOD COUNT 4.42 M/uL (4.7-6.1); WHITE BLOOD COUNT 8.21 K/uL (4.8-10.8)
[2016-12-25] MEDS: HYDROmorphone INJ 0.5 MG/0.5 ML SYR IV PRN ×2 (06:03→18:22)
[2016-12-25] MEDS: DiphenhydrAMINE HCL 50 MG/ML VIAL IV PRN ×3 (06:03→23:24)
[2016-12-25 06:24] LABS: CALCIUM 8.7 mg/dl (8.5-10.1); CREATININE 0.84 mg/dl (0.60-1.40); POTASSIUM 3.4 mmol/L (3.5-5.1)
[2016-12-25 07:26] VITALS: BP 88/53; PULSE 74; TEMP 36.6; O2SAT 95
[2016-12-25] MEDS: PANTOprazole SOD 40 MG TAB PO SCH (08:31)
[2016-12-25] MEDS: GABAPENTIN 600 MG TAB PO SCH ×3 (08:31→20:57)
[2016-12-25] MEDS: OXYCODONE HCL 10 MG TABCR (OXYCONTIN) PO SCH ×2 (08:31→20:57)
[2016-12-25] MEDS: ENOXAPARIN 40 MG/0.4 ML SYR SQ SCH (08:32)
[2016-12-25] MEDS: POTASSIUM CHLORIDE 20 MEQ TABCR PO SCH (08:32)
[2016-12-25] MEDS ORDERED: CASPOFUNGIN INJ 70 MG in SODIUM CHLORIDE 0.9% 250ML 250 ML IV ONE (09:45)
--- NOTE | 2016-12-25 10:46 | Progress Note ---
Medicine Progress Note Date & Time of Visit: Dec 25, 2016 at 10:45 . Subjective No fever or chills last night. No cough or SOB. No nausea, vomiting, diarrhea. Right shoulder pain unchanged; no drainage. . Objective Last 8 Hrs Date Time Temp Pulse Resp B/P (MAP) Pulse Ox O2 Delivery O2 Flow Rate FiO2 12/25/16 07:26 36.6 74 16 88/53 (65) 95 Room Air 12/25/16 03:42 37.0 76 18 97/63 (74) 97 Room Air Physical Exam: General- no distress Lungs- clear Heart- RRR Abdomen- + BS, soft, nontender Extremities- no pretibial edema or calf tenderness; right shoulder without overt erythema or drainage Neuro- alert . Laboratory Results: Last 24 Hours Test 12/25/16 05:35 White Blood Count 8.21 K/uL Red Blood Count 4.42 M/uL Hemoglobin 11.0 g/dL Hematocrit 33.9 % Mean Corpuscular Volume 76.7 fL Mean Corpuscular Hemoglobin 24.9 pg Mean Corpuscular Hemoglobin Concent 32.4 g/dl RDW Standard Deviation 46.5 fL RDW Coefficient of Variation 16.5 % Platelet Count 285 K/uL Mean Platelet Volume 10.2 fL Sodium Level 140 mmol/L Potassium Level 3.4 mmol/L Chloride Level 106 mmol/L Carbon Dioxide Level 26 mmol/L Anion Gap 8.0 mmol/L Blood Urea Nitrogen 9 mg/dl Creatinine 0.84 mg/dl Est Creatinine Clear Calc Drug Dose 135.8 ml/min Estimated GFR () 127.8 Estimated GFR (Non- 110.3 BUN/Creatinine Ratio 11.0 Random Glucose 103 mg/dl Calcium Level 8.7 mg/dl Assessment & Plan RIGHT SHOULDER INFECTION 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 Ortho and ID consulted. Wound culture grew Morganella morganii and Proteus vulgaris. No apparent abscess per US. MRI 12/19did not show any apparent abscess, osteomyelitis, or other evidence of deep infection. ID changed antibiotic therapy to aztreonam due to possible drug fever. FEVERS Became febrile the morning of 12/19/16. Experienced headaches and diffuse myalgias, no other specific symptoms. Repeat blood cultures obtained- negative . No apparent abscess or osteomyelitis of right shoulder per MRI. Intermittent soft stools, but none for a few days. Check for C. difficile if diarrhea occurs. No infiltrates on CXR 12/20. Consider line infection. Consider occult infection (endocarditis, discitis / epidural abscess, etc). Consider drug fever. Had RUQ tenderness. Considered cholecystitis. Ultrasound did not show any cholelithiasis or apparent cholecystitis. Right- sided nephrolithiasis without hydronephrosis was noted. No source of infection per CT of chest, abdomen, pelvis. Temp trending downward. Blood culture from 12/21/16 growing Brianna albicans. Caspofungin started by Infectious Disease. PULMONARY ATELECTASIS O2 sats low at times, improve with deep breathing. Pulmonary atelectasis noted on imaging. Deep breathing, incentive spirometry, ambulation, cutting back on sedating meds recommended. Sats, exam improved. CHRONIC PAIN Taper analgesics as tolerated. VTE PROPHYLAXIS Refused SCD's. Now receiving SQ enoxaparin. Encourage ambulation. DISPOSITION Expected discharge to home. Ortho follow-up with Dr. Byrd. ID follow-up with Dr. Bailey. . Current Inpatient Medications: Current Inpatient Medications Medications (Trade) Dose Ordered Sig/Diane Route Start Time Stop Time Status Last Admin Dose Admin Gabapentin (Neurontin Tab) 600 mg TID PO 12/13/16 08:00 01/12/17 08:59 12/25/16 08:31 600 MG Oxycodone HCl (Oxycontin Tab) 10 mg Q12H PO 12/13/16 09:00 12/27/16 08:59 12/25/16 08:31 10 MG Oxycodone HCl (Roxicodone Immediate Rel Tab) 10 mg Q6 PRN PO 12/13/16 03:15 01/12/17 03:14 12/24/16 18:17 10 MG Heparin Sodium (Porcine) (Heparin 10 Unit/ ml 5 ml Flush) 5 ml PRN PRN FLUSH 12/14/16 01:30 01/13/17 01:29 12/25/16 08:22 5 ML Diphenhydramine HCl (Benadryl Inj) 25 mg TID PRN IV 12/14/16 15:15 01/13/17 15:14 12/25/16 06:03 25 MG Hydromorphone HCl (Dilaudid Inj) 0.5 mg Q6H PRN IV 12/18/16 22:00 01/01/17 21:59 12/25/16 06:03 0.5 MG Acetaminophen (Tylenol Tab) 1,000 mg Q8H PRN PO 12/19/16 15:15 01/18/17 15:14 12/23/16 23:16 1,000 MG Ibuprofen (Motrin Tab) 800 mg Q8H PRN PO 12/20/16 13:15 01/19/17 13:14 12/22/16 08:05 800 MG Potassium Chloride (Klor-Con Tab) 20 meq QAM PO 12/21/16 08:00 01/20/17 07:59 12/25/16 08:32 20 MEQ Aztreonam 2000 mg/ Dextrose 110 ml @ 100 mls/hr Q8H IV 12/21/16 11:00 12/31/16 10:59 12/25/16 02:42 100 MLS/HR Enoxaparin Sodium (Lovenox Inj) 40 mg QAM SQ 12/24/16 08:00 01/23/17 07:59 12/25/16 08:32 40 MG Pantoprazole Sodium (Protonix Tab) 40 mg QAM PO 12/24/16 08:00 01/23/17 07:59 12/25/16 08:31 40 MG Caspofungin 70 mg/ Sodium Chloride 260 ml @ 250 mls/hr NOW ONCE IV 12/25/16 09:45 12/25/16 10:47 12/25/16 10:07 250 MLS/HR Caspofungin 50 mg/ Sodium Chloride 260 ml @ 250 mls/hr DAILY IV 12/26/16 08:00 01/25/17 07:59
[2016-12-25] MEDS: OXYCODONE HCL IR 5 MG TAB (IMMEDIATE RELEASE) PO PRN (11:24)
[2016-12-25 15:27] VITALS: BP 112/55; PULSE 77; TEMP 36.6; O2SAT 94
[2016-12-25 18:55] VITALS: BP 102/67; PULSE 83; TEMP 37.3; O2SAT 93
[2016-12-25] MEDS ORDERED: HYDROmorphone INJ 0.5 MG/0.5 ML SYR IV PRN (21:00)
[2016-12-25 23:35] VITALS: BP 120/75; PULSE 77; TEMP 37.6; O2SAT 96
[2016-12-26] MEDS: AZTREONAM IV 2,000 MG in DEXTROSE 5% 100ML 100 ML IV SCH ×3 (03:07→19:32)
[2016-12-26 03:52] VITALS: BP 88/61; PULSE 68; TEMP 36.5; O2SAT 96
[2016-12-26 07:32] VITALS: BP 112/74; PULSE 68; TEMP 36.6; O2SAT 96
[2016-12-26] MEDS: OXYCODONE HCL 10 MG TABCR (OXYCONTIN) PO SCH ×2 (09:00→22:00)
[2016-12-26] MEDS: GABAPENTIN 600 MG TAB PO SCH ×3 (09:01→19:33)
[2016-12-26] MEDS: POTASSIUM CHLORIDE 20 MEQ TABCR PO SCH (09:01)
[2016-12-26] MEDS: CASPOFUNGIN INJ 50 MG in SODIUM CHLORIDE 0.9% 250ML 250 ML IV SCH (09:01)
[2016-12-26] MEDS: PANTOprazole SOD 40 MG TAB PO SCH (09:01)
[2016-12-26] MEDS: ENOXAPARIN 40 MG/0.4 ML SYR SQ SCH (09:02)
[2016-12-26] MEDS: DiphenhydrAMINE HCL 50 MG/ML VIAL IV PRN ×2 (10:37→19:33)
[2016-12-26] MEDS: HYDROmorphone INJ 0.5 MG/0.5 ML SYR IV PRN (10:38)
[2016-12-26 15:37] VITALS: BP 110/60; PULSE 71; TEMP 36.5; O2SAT 93
--- NOTE | 2016-12-26 16:38 | Progress Note ---
Internal Med Progress Note Date of Service: Dec 26, 2016. Provider Documentation: SUBJECTIVE: Patient is lying in his bed and is in no apparent distress. Has intermittent nausea with no episode of vomiting. Remains afebrile. Occasionally pain which is more in intensity. OBJECTIVE: Vital Signs-as noted below Examination: General- Alert/Awake, In no distress Neck: Supple, Midline trachea, No JVD. Lungs- B/l Clear to auscultation Heart- Regular rate & Rhythm Abdomen- + BS, soft, nontender Extremities- no pretibial edema or calf tenderness; right shoulder without overt erythema or drainage Neuro- alert Lab data as noted below. 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 Ortho and ID consulted. -Wound culture grew Morganella morganii and Proteus vulgaris. -No apparent abscess per US. -MRI 12/19did not show any apparent abscess, osteomyelitis, or other evidence of deep infection. -ID changed antibiotic therapy to aztreonam due to possible drug fever.Duration as per ID. Fever: Became febrile the morning of 12/19/16.Experienced headaches and diffuse myalgias, no other specific symptoms. -Repeat blood cultures obtained- negative . -No apparent abscess or osteomyelitis of right shoulder per MRI. -Intermittent soft stools, but none for a few days. Check for C. difficile if diarrhea occurs. -No infiltrates on CXR 12/20. -Likely etiologies include line infection, endocarditis, discitis / epidural abscess, drug fever etc. -Had RUQ tenderness. Considered cholecystitis. -Ultrasound did not show any cholelithiasis or apparent cholecystitis. Right -sided nephrolithiasis without hydronephrosis was noted. -No source of infection per CT of chest, abdomen, pelvis. -Blood culture from 12/21/16 growing Brianna albicans. -Caspofungin started by Infectious Disease. Pulmonary Atelectasis: O2 sats low at times, improve with deep breathing.Pulmonary atelectasis noted on imaging. Clinically improving.Deep breathing, incentive spirometry, ambulation, cutting back on sedating meds recommended. Chronic Pain: Tapering analgesics as tolerated. VTE Prophylaxis: Refused SCD's. Now receiving SQ enoxaparin. Encourage ambulation. Disposition: Expected discharge to home. Ortho follow-up with Dr. Byrd. ID follow-up with Dr. Bailey. Vital Signs: Date Time Temp Pulse Resp B/P (MAP) Pulse Ox O2 Delivery O2 Flow Rate FiO2 12/26/16 16:13 Room Air 12/26/16 15:37 36.5 71 18 110/60 (77) 93 Room Air 12/26/16 09:00 Room Air 12/26/16 07:32 36.6 68 16 112/74 (87) 96 Room Air 12/26/16 03:52 36.5 68 16 88/61 (70) 96 Room Air 12/26/16 00:00 Room Air 12/25/16 23:35 37.6 77 16 120/75 (90) 96 Room Air 12/25/16 18:55 37.3 83 20 102/67 (79) 93 Room Air
[2016-12-26] MEDS ORDERED: ONDANSETRON INJ 2 MG/ML 2 ML VIAL IV PRN (16:45)
[2016-12-26] MEDS ORDERED: OXYCODONE/ACETAMINOPHEN 5-325 TAB PO PRN (16:45)
[2016-12-26 19:24] VITALS: BP 116/70; PULSE 75; TEMP 36.7; O2SAT 95
[2016-12-26 22:48] VITALS: BP 103/63; PULSE 68; TEMP 36.8; O2SAT 99
[2016-12-26] MEDS: OXYCODONE HCL IR 5 MG TAB (IMMEDIATE RELEASE) PO PRN (23:33)
[2016-12-27] VITALS (7 sets, daily range): BP systolic 63–98; BP diastolic 45–62; PULSE 68–99; TEMP 36.5–37.1; O2SAT 93–96
[2016-12-27] MEDS: AZTREONAM IV 2,000 MG in DEXTROSE 5% 100ML 100 ML IV SCH ×3 (03:18→19:34)
[2016-12-27] MEDS: DiphenhydrAMINE HCL 50 MG/ML VIAL IV PRN ×3 (03:31→21:13)
[2016-12-27 05:43] LABS: HEMATOCRIT 35.1 % (42-52); MEAN CELL VOLUME 76.6 fL (80-100); MEAN CORPUSCULAR HGB CONC 31.3 g/dl (32-36); MEAN PLATELET VOLUME 9.4 fL (7.4-10.4); PLATELET COUNT 378 K/uL (130-400); RED BLOOD COUNT 4.58 M/uL (4.7-6.1); WHITE BLOOD COUNT 9.38 K/uL (4.8-10.8)
[2016-12-27 06:17] LABS: BUN/CREATININE RATIO 15.9 (10-20); CALCIUM 8.2 mg/dl (8.5-10.1); CREATININE 0.82 mg/dl (0.60-1.40); POTASSIUM 3.5 mmol/L (3.5-5.1)
[2016-12-27] MEDS: GABAPENTIN 600 MG TAB PO SCH ×3 (08:52→19:34)
[2016-12-27] MEDS: CASPOFUNGIN INJ 50 MG in SODIUM CHLORIDE 0.9% 250ML 250 ML IV SCH (08:52)
[2016-12-27] MEDS: PANTOprazole SOD 40 MG TAB PO SCH (08:52)
[2016-12-27] MEDS: POTASSIUM CHLORIDE 20 MEQ TABCR PO SCH (08:52)
[2016-12-27] MEDS: ENOXAPARIN 40 MG/0.4 ML SYR SQ SCH (08:53)
[2016-12-27] MEDS: OXYCODONE HCL 10 MG TABCR (OXYCONTIN) PO SCH ×2 (08:56→21:14)
[2016-12-27] MEDS: OXYCODONE HCL IR 5 MG TAB (IMMEDIATE RELEASE) PO PRN (11:48)
--- NOTE | 2016-12-27 12:14 | Progress Note ---
Internal Med Progress Note Date of Service: Dec 27, 2016. Provider Documentation: SUBJECTIVE: Patient is lying in his bed and is in no apparent distress. Has intermittent nausea with no episode of vomiting which is much better today.Remains afebrile. Occasionally pain which is more in intensity. OBJECTIVE: Vital Signs-as noted below Examination: General- Alert/Awake, In no distress Neck: Supple, Midline trachea, No JVD. Lungs- B/l Clear to auscultation Heart- Regular rate & Rhythm Abdomen- + BS, soft, nontender Extremities- no pretibial edema or calf tenderness; right shoulder without overt erythema or drainage Neuro- alert Lab data as noted below. 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 Ortho and ID consulted. -Wound culture grew Morganella morganii and Proteus vulgaris. -No apparent abscess per US. -MRI 12/19did not show any apparent abscess, osteomyelitis, or other evidence of deep infection. -ID changed antibiotic therapy to aztreonam due to possible drug fever.Duration as per ID and have requested re-evaluation. had been on antibiotics for a while in recent past as per records. -Has some narcotic-liking behavior so keeps on negotiating more pain medications. Fever: Resolved now.Became febrile the morning of 12/19/16.Experienced headaches and diffuse myalgias, no other specific symptoms. -Repeat blood cultures obtained- negative . -No apparent abscess or osteomyelitis of right shoulder per MRI. -Intermittent soft stools, but none for a few days. Check for C. difficile if diarrhea occurs. -No infiltrates on CXR 12/20. -Likely etiologies include line infection, endocarditis, discitis / epidural abscess, drug fever etc. -Had RUQ tenderness. Considered cholecystitis. -Ultrasound did not show any cholelithiasis or apparent cholecystitis. Right -sided nephrolithiasis without hydronephrosis was noted. -No source of infection per CT of chest, abdomen, pelvis. -Blood culture from 12/21/16 growing Brianna albicans. -Caspofungin started by Infectious Disease. Pulmonary Atelectasis: O2 sats low at times, improve with deep breathing.Pulmonary atelectasis noted on imaging. Clinically improving.Deep breathing, incentive spirometry, ambulation, cutting back on sedating meds recommended. Chronic Pain: Tapering analgesics as tolerated. VTE Prophylaxis: Refused SCD's. Now receiving SQ enoxaparin. Encourage ambulation. Disposition: Expected discharge to home. Ortho follow-up with Dr. Byrd. ID follow-up with Dr. Bailey. Vital Signs: Date Time Temp Pulse Resp B/P (MAP) Pulse Ox O2 Delivery O2 Flow Rate FiO2 12/27/16 11:53 36.5 73 16 98/62 (74) 96 Nasal Cannula 4.0 12/27/16 07:48 36.7 68 16 96/62 (73) 94 Room Air 12/27/16 03:05 36.6 70 16 92/52 (65) 95 Room Air 12/27/16 00:00 Room Air 12/26/16 22:48 36.8 68 16 103/63 (76) 99 Room Air 12/26/16 19:24 36.7 75 18 116/70 (85) 95 Room Air 12/26/16 16:13 Room Air 12/26/16 15:37 36.5 71 18 110/60 (77) 93 Room Air Lab Results: Results Past 24 Hours Test 12/27/16 05:25 Range/Units White Blood Count 9.38 4.8-10.8 K/uL Red Blood Count 4.58 4.7-6.1 M/uL Hemoglobin 11.0 14.0-18.0 g/dL Hematocrit 35.1 42-52 % Mean Corpuscular Volume 76.6 80-100 fL Mean Corpuscular Hemoglobin 24.0 25-34 pg Mean Corpuscular Hemoglobin Concent 31.3 32-36 g/dl RDW Standard Deviation 46.5 36.4-46.3 fL RDW Coefficient of Variation 16.6 11.5-14.5 % Platelet Count 378 130-400 K/uL Mean Platelet Volume 9.4 7.4-10.4 fL Sodium Level 141 136-145 mmol/L Potassium Level 3.5 3.5-5.1 mmol/L Chloride Level 108 98-107 mmol/L Carbon Dioxide Level 26 21-32 mmol/L Anion Gap 7.0 3-11 mmol/L Blood Urea Nitrogen 13 7-18 mg/dl Creatinine 0.82 0.60-1.40 mg/dl Est Creatinine Clear Calc Drug Dose 139.1 ml/min Estimated GFR () 129.1 Estimated GFR (Non- 111.4 BUN/Creatinine Ratio 15.9 10-20 Random Glucose 97 70-99 mg/dl Calcium Level 8.2 8.5-10.1 mg/dl
--- NOTE | 2016-12-27 21:05 | Infectious Disease Progress Nt ---
Progress Note Date of Service Dec 27, 2016. Subjective Pt evaluation today including: conversation w/ patient, physical exam, chart review, lab review, review of studies, conversation w/ case consultant, review of inpatient medication list No change in complaints. Remains afebrile. No worsening shoulder pain, no purulent drainage. Tolerating antibiotics without apparent difficulty. Blood culture now growing Brianna albicans. All Other Systems: Reviewed and Negative Medications Current Inpatient Medications Medications (Trade) Dose Ordered Sig/Diane Route Start Time Stop Time Status Last Admin Dose Admin Gabapentin (Neurontin Tab) 600 mg TID PO 12/13/16 08:00 01/12/17 08:59 12/27/16 19:34 600 MG Oxycodone HCl (Oxycontin Tab) 10 mg Q12H PO 12/13/16 09:00 01/10/17 08:59 12/27/16 08:56 10 MG Oxycodone HCl (Roxicodone Immediate Rel Tab) 10 mg Q6 PRN PO 12/13/16 03:15 01/12/17 03:14 12/27/16 11:48 10 MG Heparin Sodium (Porcine) (Heparin 10 Unit/ ml 5 ml Flush) 5 ml PRN PRN FLUSH 12/14/16 01:30 01/13/17 01:29 12/27/16 14:22 5 ML Diphenhydramine HCl (Benadryl Inj) 25 mg TID PRN IV 12/14/16 15:15 01/13/17 15:14 12/27/16 11:48 25 MG Ibuprofen (Motrin Tab) 800 mg Q8H PRN PO 12/20/16 13:15 01/19/17 13:14 12/22/16 08:05 800 MG Potassium Chloride (Klor-Con Tab) 20 meq QAM PO 12/21/16 08:00 01/20/17 07:59 12/27/16 08:52 20 MEQ Aztreonam 2000 mg/ Dextrose 110 ml @ 100 mls/hr Q8H IV 12/21/16 11:00 12/31/16 10:59 12/27/16 19:34 100 MLS/HR Enoxaparin Sodium (Lovenox Inj) 40 mg QAM SQ 12/24/16 08:00 01/23/17 07:59 12/27/16 08:53 40 MG Pantoprazole Sodium (Protonix Tab) 40 mg QAM PO 12/24/16 08:00 01/23/17 07:59 12/27/16 08:52 40 MG Caspofungin 50 mg/ Sodium Chloride 260 ml @ 250 mls/hr DAILY IV 12/26/16 08:00 01/25/17 07:59 12/27/16 08:52 250 MLS/HR Ondansetron HCl (Zofran Inj) 4 mg Q6H PRN IV 12/26/16 16:45 01/25/17 16:44 Objective Vital Signs Date Time Temp Pulse Resp B/P (MAP) Pulse Ox O2 Delivery O2 Flow Rate FiO2 12/27/16 19:43 37.1 70 18 93/59 (70) 94 Room Air 12/27/16 16:05 37.0 71 18 86/52 (63) 96 Room Air 12/27/16 15:39 Room Air 12/27/16 11:53 36.5 73 16 98/62 (74) 96 Nasal Cannula 4.0 12/27/16 08:45 94 Room Air 12/27/16 07:48 36.7 68 16 96/62 (73) 94 Room Air 12/27/16 03:05 36.6 70 16 92/52 (65) 95 Room Air 12/27/16 00:00 Room Air 12/26/16 22:48 36.8 68 16 103/63 (76) 99 Room Air Physical Exam General Appearance: WD/WN, + mild distress Eyes: normal inspection, EOMI, sclerae normal ENT: normal ENT inspection, pharynx normal Neck: supple, no adenopathy, trachea midline Respiratory/Chest: chest non-tender, lungs clear, normal breath sounds, no respiratory distress Cardiovascular: regular rate, rhythm, no gallop, no murmur Abdomen: normal bowel sounds, non tender, soft, no organomegaly Extremities: non-tender, no calf tenderness Neurologic/Psychiatric: alert, oriented x 3 Skin: normal color, warm/dry, no rash Lymphatic: no adenopathy Laboratory Results Last 24 Hours Test 12/27/16 05:25 White Blood Count 9.38 K/uL Red Blood Count 4.58 M/uL Hemoglobin 11.0 g/dL Hematocrit 35.1 % Mean Corpuscular Volume 76.6 fL Mean Corpuscular Hemoglobin 24.0 pg Mean Corpuscular Hemoglobin Concent 31.3 g/dl RDW Standard Deviation 46.5 fL RDW Coefficient of Variation 16.6 % Platelet Count 378 K/uL Mean Platelet Volume 9.4 fL Sodium Level 141 mmol/L Potassium Level 3.5 mmol/L Chloride Level 108 mmol/L Carbon Dioxide Level 26 mmol/L Anion Gap 7.0 mmol/L Blood Urea Nitrogen 13 mg/dl Creatinine 0.82 mg/dl Est Creatinine Clear Calc Drug Dose 139.1 ml/min Estimated GFR () 129.1 Estimated GFR (Non- 111.4 BUN/Creatinine Ratio 15.9 Random Glucose 97 mg/dl Calcium Level 8.2 mg/dl Assessment and Plan Recurrent wound infection, possible cath-associated Brianna infection. Would give 14 days for Brianna, will change to oral fluconazole. Would consider use of IV Zosyn which can be given as continuous infusion over 24 hours to allow outpatient treatment. Will need 2-4 weeks of therapy.
[2016-12-28] VITALS (7 sets, daily range): BP systolic 87–121; BP diastolic 55–68; PULSE 61–77; TEMP 36.4–37; O2SAT 93–98
[2016-12-28] MEDS: AZTREONAM IV 2,000 MG in DEXTROSE 5% 100ML 100 ML IV SCH ×3 (03:17→16:53)
[2016-12-28] MEDS: DiphenhydrAMINE HCL 50 MG/ML VIAL IV PRN ×2 (05:38→14:48)
[2016-12-28] MEDS: OXYCODONE HCL IR 5 MG TAB (IMMEDIATE RELEASE) PO PRN ×2 (05:39→14:50)
[2016-12-28 06:23] LABS: BASO % 0.9 %; BASO ABS # 0.09 K/uL (0-0.2); COMPLETE YES; HEMATOCRIT 38.8 % (42-52); IG% 1.3 %; LYMPH % 25.9 %; LYMPH ABS # 2.65 K/uL (1.2-3.4); MEAN CELL VOLUME 76.5 fL (80-100); MEAN CORPUSCULAR HEMOGLOBIN 23.3 pg (25-34); MEAN CORPUSCULAR HGB CONC 30.4 g/dl (32-36); MEAN PLATELET VOLUME 9.6 fL (7.4-10.4); MONO % 6.8 %; NEUT % 62.1 %; PLATELET COUNT 476 K/uL (130-400); RED BLOOD COUNT 5.07 M/uL (4.7-6.1); WHITE BLOOD COUNT 10.24 K/uL (4.8-10.8)
[2016-12-28] MEDS: CASPOFUNGIN INJ 50 MG in SODIUM CHLORIDE 0.9% 250ML 250 ML IV SCH ×2 (08:40→10:25)
[2016-12-28] MEDS: GABAPENTIN 600 MG TAB PO SCH ×2 (08:40→11:37)
[2016-12-28] MEDS: PANTOprazole SOD 40 MG TAB PO SCH (08:41)
[2016-12-28] MEDS: POTASSIUM CHLORIDE 20 MEQ TABCR PO SCH (08:41)
[2016-12-28] MEDS: ENOXAPARIN 40 MG/0.4 ML SYR SQ SCH (08:41)
[2016-12-28] MEDS: OXYCODONE HCL 10 MG TABCR (OXYCONTIN) PO SCH (08:41)
[2016-12-28] MEDS ORDERED: FLUCONAZOLE 100 MG TAB PO SCH (09:30)
--- NOTE | 2016-12-28 15:18 | Progress Note ---
Internal Med Progress Note Date of Service: Dec 28, 2016. Provider Documentation: SUBJECTIVE: Patient is sitting in his bed and is in no apparent distress. Has intermittent nausea with no episode of vomiting which is much better today.Remains afebrile. Occasionally pain in the right shoulder which increases on movements. OBJECTIVE: Vital Signs-as noted below Examination: General- Alert/Awake, In no distress Neck: Supple, Midline trachea, No JVD. Lungs- B/l Clear to auscultation Heart- Regular rate & Rhythm Abdomen- + BS, soft, nontender Extremities- no pretibial edema or calf tenderness; right shoulder without overt erythema or drainage Neuro- alert Lab data as noted below. 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 Ortho and ID consulted. -Wound culture grew Morganella morganii and Proteus vulgaris. -No apparent abscess per US. -MRI 12/19did not show any apparent abscess, osteomyelitis, or other evidence of deep infection. -ID changed antibiotic therapy to aztreonam due to possible drug fever.Will be discharged home on Zosyn X 2 weeks and will follow up with ID. had been on antibiotics for a while in recent past as per records. -Has some narcotic-liking behavior so keeps on negotiating more pain medications. Fever: Resolved now.Became febrile the morning of 12/19/16.Experienced headaches and diffuse myalgias, no other specific symptoms. -Repeat blood cultures obtained- negative . -No apparent abscess or osteomyelitis of right shoulder per MRI. -Intermittent soft stools, but none for a few days. Check for C. difficile if diarrhea occurs. -No infiltrates on CXR 12/20. -Likely etiologies include line infection, endocarditis, discitis / epidural abscess, drug fever etc. -Had RUQ tenderness. Considered cholecystitis. -Ultrasound did not show any cholelithiasis or apparent cholecystitis. Right -sided nephrolithiasis without hydronephrosis was noted. -No source of infection per CT of chest, abdomen, pelvis. -Blood culture from 12/21/16 growing Brianna albicans will will be treated with anti-fungal for 2 weeks. -Caspofungin started by Infectious Disease and will go home on Diflucan. Pulmonary Atelectasis: O2 sats low at times, improve with deep breathing.Pulmonary atelectasis noted on imaging. Clinically improving.Deep breathing, incentive spirometry, ambulation, cutting back on sedating meds recommended. Chronic Pain: Tapering analgesics as tolerated. VTE Prophylaxis: Refused SCD's. Now receiving SQ enoxaparin. Encourage ambulation. Disposition: Expected discharge to home later today. Ortho follow-up with Dr. Byrd. ID follow-up with Dr. Bailey. Vital Signs: Date Time Temp Pulse Resp B/P (MAP) Pulse Ox O2 Delivery O2 Flow Rate FiO2 12/28/16 09:08 Room Air 12/28/16 08:09 36.8 61 16 98/59 (72) 94 Room Air 12/28/16 04:30 36.6 77 16 121/68 (85) 97 Room Air 12/28/16 03:25 36.4 70 20 87/59 (68) 98 Room Air 12/28/16 00:13 93 Room Air 12/28/16 00:00 37.0 63 16 95/55 (68) 94 Room Air 12/27/16 20:00 93 Room Air 12/27/16 19:43 37.1 70 18 93/59 (70) 94 Room Air 12/27/16 16:05 37.0 71 18 86/52 (63) 96 Room Air 12/27/16 15:39 Room Air Lab Results: Results Past 24 Hours Test 12/28/16 05:20 Range/Units White Blood Count 10.24 4.8-10.8 K/uL Red Blood Count 5.07 4.7-6.1 M/uL Hemoglobin 11.8 14.0-18.0 g/dL Hematocrit 38.8 42-52 % Mean Corpuscular Volume 76.5 80-100 fL Mean Corpuscular Hemoglobin 23.3 25-34 pg Mean Corpuscular Hemoglobin Concent 30.4 32-36 g/dl Platelet Count 476 130-400 K/uL Mean Platelet Volume 9.6 7.4-10.4 fL Neutrophils (%) (Auto) 62.1 % Lymphocytes (%) (Auto) 25.9 % Monocytes (%) (Auto) 6.8 % Eosinophils (%) (Auto) 3.0 % Basophils (%) (Auto) 0.9 % Neutrophils # (Auto) 6.36 1.4-6.5 K/uL Lymphocytes # (Auto) 2.65 1.2-3.4 K/uL Monocytes # (Auto) 0.70 0.11-0.59 K/uL Eosinophils # (Auto) 0.31 0-0.5 K/uL Basophils # (Auto) 0.09 0-0.2 K/uL RDW Standard Deviation 47.0 36.4-46.3 fL RDW Coefficient of Variation 16.9 11.5-14.5 % Immature Granulocyte % (Auto) 1.3 % Immature Granulocyte # (Auto) 0.13 0.00-0.02 K/uL C-Reactive Protein 0.89 0-0.29 mg/dl Procalcitonin 0.84 0-0.5 ng/ml
[2016-12-28] MEDS ORDERED: PRT40 PO (15:23)
[2016-12-28] MEDS ORDERED: DFL100 PO (15:23)
[2016-12-28] MEDS ORDERED: MTR800 PO (15:23)
[2016-12-28] MEDS ORDERED: ONDA4TAB46 PO (15:23)
--- NOTE | 2016-12-28 15:26 | Discharge Instructions ---
Discharge Instructions Date of Service Dec 28, 2016. Admission Reason for Admission: Right Shoulder Pain Discharge Discharge Diagnosis / Problem: Celluitis Right Shoulder Discharge Goals Goal(s): Decrease discomfort, Improve function, Increase independence, Improve disease control, Learn about illness, Diagnostic testing, Therapeutic intervention, Prevent Disease Progression Activity Recommendations Activity Limitations: resume your previous activity (as tolerated) Lifting Limitations: no more than 5 pounds Exercise/Sports Limitations: as tolerated Shower/Bathe: no limitations . Instructions / Follow-Up Instructions / Follow-Up abhishek all the medications as directed Have more fibers in food and drink more water. Follow up with PCP within one week after discharge Follow up with Dr. Bailey (Infectious Disease) within 7-10 days after discharge. Current Hospital Diet Patient's current hospital diet: Regular Diet Discharge Diet Recommended Diet: Regular Diet Pending Studies Studies pending at discharge: no Medical Emergencies . Who to Call and When: Medical Emergencies: If at any time you feel your situation is an emergency, please call 911 immediately. . Non-Emergent Contact Non-Emergency issues call your: Primary Care Provider Call Non-Emergent contact if: you have a fever, your pain is worsening, wound has increased drainage, wound has increased redness, wound has increased pain . . "Provider Documentation" section prepared by Aldo Estrada. . VTE Core Measure Inpt VTE Proph given/why not?: Enoxaparin (Lovenox)SQ
--- NOTE | 2016-12-28 15:28 | Discharge Summary ---
Discharge Summary Date of Service Dec 28, 2016. Discharge Summary Admission Date: Dec 13, 2016 at 03:02 Discharge Date: Dec 28, 2016 Discharge Disposition: Home with services Principal Diagnosis: Right Shoulder Cellulitis Secondary Diagnoses/Problems: Pulmonary Atelectasis Chronic pain Procedures: NONE Vaccinations: NONE Consultations: Infectious Disease Orthopedics Pending Studies/Follow-Up: Follow up with ID after discharge as outpatient Medication Reconciliation New Medications: Ondansetron Hcl (Zofran) 4 Mg Tab 4 MG PO TID PRN for Nausea, #30 TAB Fluconazole (Fluconazole) 100 Mg Tab 100 MG PO QAM, #10 TAB Ibuprofen (Ibuprofen) 800 Mg Tab 800 MG PO Q8H PRN for fever or pain, #30 TAB Pantoprazole (Pantoprazole Sodium) 40 Mg Tab 40 MG PO QAM, #30 TAB Continued Medications: Gabapentin (Gabapentin) 600 Mg Tab 600 MG PO TID Oxycodone Hcl (Oxycodone Hcl Er) 10 Mg Tab 10 MG PO Q12 Oxycodone Hcl (Oxycodone Hcl) 10 Mg Tab 10 MG PO Q6 PRN for Pain Discontinued Medications: Daptomycin (Daptomycin) 500 Mg Inj 585 MG IV DAILY, #1 Piperacillin Sodium-Tazobactam (Zosyn) 1 Inj Inj 3.375 GM IV Q6HWA, #1 Admission Information HPI (per Admitting provider): 41 yo M with multiple admission for right shoulder pain and infection came to the ER for worsening right shoulder pain. Had multiple surgery in the right shoulder. Last hospitalization at [facility] was on 09/17/16 to 09/30/16 for right shoulder Infection. Followed by Dr. Bailey for ID and Dr. Byrd for Ortho. He has been on empirical Zosyn and Daptomycin. Pt said the pain in his right shoulder starting to get worst and swelling over past 2 days. Noted erythema around the right shoulder incision that seems to expand in less than 24 hrs. Pt said that pain is about 9/10, worsening with movement of the shoulder denies any drainage, fever, chills and palpitation follow with pain management for the right shoulder pain. Physical Exam (per Admitting): General Appearance: WD/WN, no apparent distress Head: normocephalic, atraumatic Eyes: normal inspection, PERRL, EOMI ENT: hearing grossly normal Neck: supple, no JVD Respiratory/Chest: lungs clear, no respiratory distress, no accessory muscle use Cardiovascular: regular rate, rhythm, no JVD Abdomen/GI: normal bowel sounds, non tender, soft Back: normal inspection, no CVA tenderness Extremities/Musculoskelatal: no calf tenderness, + pertinent finding (right shoulder pain, erythema and swelling, decrease ROM in the right shoulder) Neurologic/Psych: testing lead II-XII nml as tested, alert, oriented x 3 Skin: normal color, warm/dry Hospital Course Right Shoulder Infection/ Cellulitis: 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 Ortho and ID consulted. -Wound culture grew Morganella morganii and Proteus vulgaris. -No apparent abscess per US. -MRI 12/19did not show any apparent abscess, osteomyelitis, or other evidence of deep infection. -ID changed antibiotic therapy to aztreonam due to possible drug fever.Will be discharged home on Zosyn X 2 weeks and will follow up with ID. had been on antibiotics for a while in recent past as per records. -Has some narcotic-liking behavior so keeps on negotiating more pain medications. Fever: Resolved now.Became febrile the morning of 12/19/16.Experienced headaches and diffuse myalgias, no other specific symptoms. -Repeat blood cultures obtained- negative . -No apparent abscess or osteomyelitis of right shoulder per MRI. -Intermittent soft stools, but none for a few days. Check for C. difficile if diarrhea occurs. -No infiltrates on CXR 12/20. -Likely etiologies include line infection, endocarditis, discitis / epidural abscess, drug fever etc. -Had RUQ tenderness. Considered cholecystitis. -Ultrasound did not show any cholelithiasis or apparent cholecystitis. Right -sided nephrolithiasis without hydronephrosis was noted. -No source of infection per CT of chest, abdomen, pelvis. -Blood culture from 12/21/16 growing Brianna albicans will will be treated with anti-fungal for 2 weeks. -Caspofungin started by Infectious Disease and will go home on Diflucan. Pulmonary Atelectasis: O2 sats low at times, improve with deep breathing.Pulmonary atelectasis noted on imaging. Clinically improving.Deep breathing, incentive spirometry, ambulation, cutting back on sedating meds recommended. Chronic Pain: Tapering analgesics as tolerated. VTE Prophylaxis: Refused SCD's. Now receiving SQ enoxaparin. Encourage ambulation. Disposition: Expected discharge to home later today. Ortho follow-up with Dr. Byrd. ID follow-up with Dr. Bailey. Total time spent on discharge = 42 minutes. This includes examination of the patient, discharge planning, medication reconciliation, and communication with other providers. Discharge Instructions Activity Recommendations Activity Limitations: resume your previous activity (as tolerated) Lifting Limitations: no more than 5 pounds Exercise/Sports Limitations: as tolerated Shower/Bathe: no limitations . Instructions / Follow-Up Take all the medications as directed Have more fibers in food and drink more water. Follow up with PCP within one week after discharge Follow up with Dr. Bailey (Infectious Disease) within 7-10 days after discharge. Current Hospital Diet Patient's current hospital diet: Regular Diet Discharge Diet Recommended Diet: Regular Diet Additional Copies To Jose Bailey MD, Edwin, M.D.
== END 2016-12-28 18:46 | disposition home or self-care (01) | DRG 603 ==
LOC: C.EDB 23:03 → C.4E 12-13 03:02 → ENRESERV 12-13 03:14
PROVIDERS: ADMIT Internal Medicine; ATTEND Emergency Medicine
DX: L03.113 Cellulitis of right upper limb (principal); J98.11 Atelectasis; G89.29 Other chronic pain; G62.9 Polyneuropathy, unspecified; R19.7 Diarrhea, unspecified; E87.6 Hypokalemia; Z80.9 Family history of malignant neoplasm, unspecified; Z82.49 Family history of ischemic heart disease and other diseases of the circulatory system; Z83.3 Family history of diabetes mellitus; Z87.442 Personal history of urinary calculi; Z86.14 Personal history of Methicillin resistant Staphylococcus aureus infection; Z91.041 Radiographic dye allergy status; Z88.8 Allergy status to other drugs, medicaments and biological substances; Z88.3 Allergy status to other anti-infective agents; Z79.899 Other long term (current) drug therapy; B37.9 Candidiasis, unspecified; B96.4 Proteus (mirabilis) (morganii) as the cause of diseases classified elsewhere

== ENCOUNTER 2017-07-03 20:28 | Inpatient (IN) | payer OTHER ==
[~2017-07-03] VITALS: Ht 175.3 cm; Wt 96.2 kg
[~2017-07-03 20:28] MED LIST changes: -CNCI50 IV; -DAPT500I IV; +DFL100 PO; -LCTX PO; +MTR800 PO; +NRN600 PO; +OXYC-164 PO; +OXYC-292 PO; -OXYC20TA32 PO; -OXYC20TA50 PO; -PIPE1INJ11 IV; -POTA20TA16 PO; +PRT40 PO; -SLWMEC PO
[2017-07-03] MEDS ORDERED: IBUPROFEN 800 MG TAB PO STA (22:16)
[2017-07-03] MEDS ORDERED: SODIUM CHLORIDE 0.9% 1000ML 1,000 ML IV STA (22:16)
[2017-07-03] MEDS ORDERED: HYDROmorphone INJ 2 MG/ML SYR/VIAL IV STA (22:16)
[2017-07-03] MEDS ORDERED: PIPERACILLIN/TAZOBACTAM 4.5 GM/100ML D5W IV STA (22:16)
[2017-07-03] MEDS ORDERED: ONDANSETRON INJ 2 MG/ML 2 ML VIAL IV STA (22:16)
[2017-07-03] MEDS ORDERED: SODIUM CHLORIDE 0.9% IV STA (22:29)
[2017-07-03] MEDS ORDERED: DAPTOMYCIN IV STA (22:29)
--- NOTE | 2017-07-03 22:47 | DIAGNOSTIC IMAGING REPORT ---
CHEST ONE VIEW PORTABLE CLINICAL HISTORY: Sepsis COMPARISON STUDY: 12/12/2016 FINDINGS: The heart is normal in size. There is a right-sided central venous catheter with its tip projected over the superior vena cava. There is no failure. There is no focal pulmonary consolidation. There are no pleural effusions.[ IMPRESSION: No active disease in the chest. Electronically signed by: Daniel Cole M.D. 07/03/2017 10:46 PM Dictated Date/Time: 07/03/2017 10:45 PM
[2017-07-03] MEDS ORDERED: HYDROmorphone INJ 1 MG/ML SYR ONE (23:00)
[2017-07-03] MEDS ORDERED: DAPTOmycin IV 575 MG in SYRINGE 0 ML IV STA (23:12)
[2017-07-03 23:23] LABS: BASO % 0.2 %; BASO ABS # 0.03 K/uL (0-0.2); EOS % 1.4 %; EOS ABS # 0.19 K/uL (0-0.5); HEMATOCRIT 43.8 % (42-52); HEMOGLOBIN 14.6 g/dL (14.0-18.0); IG# 0.05 K/uL (0.00-0.02); LYMPH % 11.8 %; LYMPH ABS # 1.66 K/uL (1.2-3.4); MEAN CELL VOLUME 82.3 fL (80-100); MEAN CORPUSCULAR HEMOGLOBIN 27.4 pg (25-34); MEAN CORPUSCULAR HGB CONC 33.3 g/dl (32-36); MEAN PLATELET VOLUME 9.5 fL (7.4-10.4); MONO % 7.5 %; MONO ABS # 1.06 K/uL (0.11-0.59); NEUT % 78.7 %; NEUT ABS # 11.05 K/uL (1.4-6.5); PLATELET COUNT 279 K/uL (130-400); RED CELL DISTRIBUTION WIDTH CV 15.2 % (11.5-14.5); RED CELL DISTRIBUTION WIDTH SD 45.5 fL (36.4-46.3); WHITE BLOOD COUNT 14.04 K/uL (4.8-10.8)
[2017-07-03 23:35] LABS: PTT PATIENT 31.5 SECONDS (21.0-31.0)
[2017-07-03 23:58] LABS: ALBUMIN 3.4 gm/dl (3.4-5.0); CALCIUM 8.5 mg/dl (8.5-10.1); CREATININE 1.08 mg/dl (0.60-1.40); POTASSIUM 3.4 mmol/L (3.5-5.1)
[2017-07-04] VITALS (7 sets, daily range): BP systolic 117–168; BP diastolic 74–110; PULSE 81–115; TEMP 35.8–38; O2SAT 93–96; BMI 31.3
[2017-07-04] LABS: INFLUENZA B ANTIGEN Neg for Influ B (NEG)
[2017-07-04 00:01] LABS: TOTAL PROTEIN 7.9 gm/dl (6.4-8.2)
[2017-07-04] MEDS ORDERED: POTASSIUM CHLORIDE 10 MEQ TABCR PO STA (02:08)
[2017-07-04] MEDS ORDERED: ONDANSETRON INJ 2 MG/ML 2 ML VIAL IV STA (02:29)
[2017-07-04] MEDS ORDERED: ACETAMINOPHEN 325 MG TAB PO PRN (02:30)
[2017-07-04] MEDS ORDERED: HYDROmorphone INJ 1 MG/ML SYR IV STA (02:33)
[2017-07-04] MEDS ORDERED: ONDANSETRON INJ 2 MG/ML 2 ML VIAL ONE (02:35)
--- NOTE | 2017-07-04 04:17 | EMERGENCY ROOM VISIT NOTE ---
History First contact with patient: 22:09 Chief Complaint: INFECTION Stated Complaint: ABSCESS OF RT SHOULDER, RT SHOULDER PAIN Nursing Triage Summary: patient has hardware in the right shoulder and has been treated for osteomyolitis with home infusion and oral antibiotics for a long while. Dr bailey has recently decreased his oral antibotics and stopped the IV antibiotics for about the last 3 months he has been off antibiotics. last he started with some swelling and redness and started with fevers and nausea and vomiting; central line remains in place and is maintained daily with flush and heparin by patient. History of Present Illness The patient is a 41 year old male who presents to the Emergency Room with complaints of fever, chills, body aches with right bicep infection. 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 He's had greater than 20 surgeries. He has a a port in place. Last antibiotics was 3 months ago and he follows with Dr. Bailey. He noticed he was getting sick last week. He comes in now. No recent Tylenol or Motrin intake. Patient denies chest pain , dyspnea, cough, congestion, sore throat, abdominal pain, vomiting, diarrhea, urinary symptoms. Patient did notice a little bit of drainage a few days ago from the incisional site but nothing recent. Review of Systems See HPI for pertinent positives & negatives. A total of 10 systems reviewed and were otherwise negative. Past Medical/Surgical History Medical Problems: (1) Cellulitis of shoulder (2) Direct infection of right shoulder in infectious and parasitic diseases classified elsewhere (3) History of MRSA infection (4) Peripheral neuropathy (5) Right shoulder pain (6) Sepsis Surgical Problems: (1) H/O shoulder surgery (2) History of dental surgery (3) S/p closure of anal fissure (4) S/p kidney stone removal (5) S/p placement of Patten catheter (6) Status post debridement Family History Cancer Diabetes mellitus Heart disease Hypertension Social History Smoking Status: Never Smoker Alcohol Use: none Drug Use: none Marital Status: Housing Status: lives with family Occupation Status: employed Current/Historical Medications No Active Prescriptions or Reported Meds Physical Exam Vital Signs Date Time Temp Pulse Resp B/P (MAP) Pulse Ox O2 Delivery O2 Flow Rate FiO2 07/04/17 00:28 36.9 105 22 124/87 94 Room Air 07/03/17 23:13 98 Room Air 07/03/17 21:15 38.2 111 18 130/88 98 Room Air Physical Exam VITALS: Vitals are noted on the nurse's note and reviewed by myself. Vital signs febrile GENERAL: Pleasant male, in no acute distress, nondiaphoretic, well-developed well-nourished. SKIN: Right deltoid region with incisional scar present erythematous and edematous concerning for infection and extremely tender to palpation without lymphangitis The rest of the skin was without rashes, erythema, edema, or bruising. There is no tenting of the skin. Capillary reflex less than 2 seconds. HEAD: Normocephalic atraumatic. EARS: External auditory canals clear, tympanic membranes pearly hurt without erythema or effusion bilaterally. EYES: Pupils equal round and reactive to light and accommodation. Conjunctivae without injection, sclerae without icterus. Extraocular movements intact. NOSE: Patent, turbinates without inflammation or discharge. MOUTH: Mucous membranes mildly dry Pharynx without erythema or exudate. Uvula midline. Airway patent. Tongue does not deviate. NECK: Supple without nuchal rigidity. No lymphadenopathy. No thyromegaly. Cervical spine is nontender. No JVD. HEART: Tachycardic rate and rhythm without murmurs gallops or rubs. Port present without signs of infection. LUNGS: Clear to auscultation bilaterally without wheezes, rales or rhonchi. No dullness to percussion. No retractions or accessory muscle use. ABDOMEN: Positive bowel sounds x 4. Normal tympanic percussion. Soft, nontender, without masses or organomegaly. Roche sign negative. No guarding or rebound tenderness. MUSCULOSKELETAL: No muscle atrophy, or edema noted. NEURO: Patient was alert and oriented to person place and time. Normal sensation to light and sharp touch. No focal neurological deficits. Medical Decision & Procedures Laboratory Results 07/03/17 22:50 Red Blood Count 5.32, Mean Corpuscular Volume 82.3, Mean Corpuscular Hemoglobin 27.4, Mean Corpuscular Hemoglobin Concent 33.3, Mean Platelet Volume 9.5, Neutrophils (%) (Auto) 78.7, Lymphocytes (%) (Auto) 11.8, Monocytes (%) (Auto) 7.5, Eosinophils (%) (Auto) 1.4, Basophils (%) (Auto) 0.2, Neutrophils # (Auto) 11.05, Lymphocytes # (Auto) 1.66, Monocytes # (Auto) 1.06, Eosinophils # (Auto) 0.19, Basophils # (Auto) 0.03 07/03/17 22:50 Test 07/03/17 22:50 07/03/17 23:15 White Blood Count 14.04 K/uL (4.8-10.8) Red Blood Count 5.32 M/uL (4.7-6.1) Hemoglobin 14.6 g/dL (14.0-18.0) Hematocrit 43.8 % (42-52) Mean Corpuscular Volume 82.3 fL (80-100) Mean Corpuscular Hemoglobin 27.4 pg (25-34) Mean Corpuscular Hemoglobin Concent 33.3 g/dl (32-36) Platelet Count 279 K/uL (130-400) Mean Platelet Volume 9.5 fL (7.4-10.4) Neutrophils (%) (Auto) 78.7 % Lymphocytes (%) (Auto) 11.8 % Monocytes (%) (Auto) 7.5 % Eosinophils (%) (Auto) 1.4 % Basophils (%) (Auto) 0.2 % Neutrophils # (Auto) 11.05 K/uL (1.4-6.5) Lymphocytes # (Auto) 1.66 K/uL (1.2-3.4) Monocytes # (Auto) 1.06 K/uL (0.11-0.59) Eosinophils # (Auto) 0.19 K/uL (0-0.5) Basophils # (Auto) 0.03 K/uL (0-0.2) RDW Standard Deviation 45.5 fL (36.4-46.3) RDW Coefficient of Variation 15.2 % (11.5-14.5) Immature Granulocyte % (Auto) 0.4 % Immature Granulocyte # (Auto) 0.05 K/uL (0.00-0.02) Prothrombin Time 10.7 SECONDS (9.0-12.0) Prothromb Time International Ratio 1.0 (0.9-1.1) Activated Partial Thromboplast Time 31.5 SECONDS (21.0-31.0) Partial Thromboplastin Ratio 1.2 Anion Gap 9.0 mmol/L (3-11) Est Creatinine Clear Calc Drug Dose 105.1 ml/min Estimated GFR () 99.7 Estimated GFR (Non- 86.0 BUN/Creatinine Ratio 8.6 (10-20) Calcium Level 8.5 mg/dl (8.5-10.1) Total Bilirubin 0.6 mg/dl (0.2-1) Aspartate Amino Transf (AST/SGOT) 21 U/L (15-37) Alanine Aminotransferase (ALT/SGPT) 39 U/L (12-78) Alkaline Phosphatase 133 U/L (45-117) Total Protein 7.9 gm/dl (6.4-8.2) Albumin 3.4 gm/dl (3.4-5.0) Globulin 4.5 gm/dl (2.5-4.0) Albumin/Globulin Ratio 0.8 (0.9-2) Influenza Type A Antigen Neg for Influ A (NEG) Influenza Type B Antigen Neg for Influ B (NEG) Medications Administered Medications (Trade) Dose Ordered Sig/Diane Route Start Time Stop Time Status Last Admin Dose Admin Piperacillin Sod/ Tazobactam Sod (Zosyn Iv) 4.5 gm ONE STAT IV 07/03/17 22:16 07/03/17 22:24 DC 07/03/17 23:35 4.5 GM Sodium Chloride 1,000 ml @ 999 mls/hr Q1H1M STAT IV 07/03/17 22:16 07/03/17 23:16 DC 07/03/17 23:06 999 MLS/HR Ibuprofen (Motrin Tab) 800 mg NOW STAT PO 07/03/17 22:16 07/03/17 22:24 DC 07/03/17 23:05 800 MG Ondansetron HCl (Zofran Inj) 4 mg NOW STAT IV 07/03/17 22:16 07/03/17 22:24 DC 07/03/17 23:05 4 MG Hydromorphone HCl (Dilaudid Inj) 1 mg STK-MED ONCE .ROUTE 07/03/17 23:00 07/03/17 23:01 DC 07/03/17 23:05 1 MG Daptomycin 575 mg/ Syringe 11.5 ml @ 5.75 mls/ min NOW STAT IV 07/03/17 23:12 07/03/17 23:13 DC 07/03/17 23:32 5.75 MLS/MIN Potassium Chloride (Klor-Con M10) 60 meq NOW STAT PO 07/04/17 02:08 07/04/17 02:16 DC 07/04/17 02:38 60 MEQ ED Course Prior records/ancillary studies reviewed. Triage Nursing notes reviewed. Additional history obtained from family. The patient's history was concerning for fever. Differential diagnosis: Etiologies such as postsurgical infection, osteomyelitis, viral syndrome, otitis , pharyngitis, pneumonia, influenza, meningitis, urinary tract infection, sepsis , bacteremia, as well as others were entertained. Physical examination: Patient is alert and mildly ill-appearing. ER treatment provided: Zosyn and daptomycin. Per chart review is is with the patient normally gets On reassessment the patient felt better. Diagnostics interpreted by me: ECG: Normal sinus, normal intervals, no acute ST-T wave changes, poor baseline, rate of 105. Impression sinus tachycardia interpreted by myself The labs revealed leukocytosis. Negative lactic acid. Blood cultures pending. Negative flu Imaging studies: US EXTREMITY: Complex collection in the region of scar in the right upper arm measuring approximately 4.4 x 0.8 x 3.5 cm with peripheral vascularity. Correlate clinically for an infectious process. Radiologist: Marianne Caballero M.D. Study ready at 00:52 and initial results DIAGNOSTIC IMAGING [~ rep ct add3]] CHEST ONE VIEW PORTABLE CLINICAL HISTORY: Sepsis COMPARISON STUDY: 12/12/2016 FINDINGS: The heart is normal in size. There is a right-sided central venous catheter with its tip projected over the superior vena cava. There is no failure. There is no focal pulmonary consolidation. There are no pleural effusions.[ IMPRESSION: No active disease in the chest. Electronically signed by: Daniel Cole M.D. Consultation: A consultation was placed with hospitalist, Dr. Garcia. The case was discussed and diagnostics were reviewed. The patient was evaluated in the ER for further treatment. This appears to be consistent with reinfection of the right shoulder whose had multiple surgeries and has been on chronic antibiotics but nothing within the past 3 months per patient. Patient was started on Zosyn and daptomycin immediately after first initial evaluation as presentation was concerning for reinfection as he was febrile and tachycardic. His right shoulder incision site was erythematous and edematous and exquisitely tender to palpation. No palpable abscess. No lymphangitis. Ultrasound concerning for fluid collection. Medicine was consulted for admission. By the evaluation outlined above emergent etiologies such as otitis, pharyngitis, pneumonia, meningitis, urinary tract infection, as well as others were deemed relatively unlikely. The pt informed about the findings as listed above. All questions were answered and pleased with the treatment. Case reviewed with my attending The chart was completed utilizing [employer] Speech voice recognition software. Grammatical errors, random word insertions, pronoun errors, and incomplete sentences are an occassional consequence of this system due to software limitations, ambient noise, and hardware issues. Any formal questions or concerns about the content, text, or information contained within the body of this dictation should be directly addressed to the physician assistant store leader for clarification. Medical Decision As above Medication Reconcilliation Current Medication List: was personally reviewed by me Blood Pressure Screening Patient's blood pressure: Normal blood pressure Impression Primary Impression: Abscess of right shoulder Additional Impressions: Hypokalemia right shoulder infection Departure Information Dispostion Being Evaluated By Hospitalist Condition FAIR Prescriptions No Active Prescriptions or Reported Meds Referrals Jose Bailey MD (PCP) Patient Instructions My [facility] Problem Qualifiers
[2017-07-04] MEDS: PIPERACILL/TAZOBAC IV 3.375 GM in DEXTROSE 5% 100ML 100 ML IV SCH ×3 (04:27→20:35)
[2017-07-04] MEDS: ONDANSETRON INJ 2 MG/ML 2 ML VIAL IV PRN (04:42)
--- NOTE | 2017-07-04 06:15 | History and Physical ---
History & Physical Date & Time of Service: Jul 04, 2017 at 06:13 Chief Complaint: Abscess Of Rt Shoulder, Rt Shoulder Pain Primary Care Physician: Jose Bailey MD History of Present Illness Source: patient This is a 41 year old M with recurrent infections/osteomyelitis of right upper extremities after sustaining mechanical injury in 2011. Since that time patient has had hardware placed and developed complications from recurrent infections. As per patient he has often require protracted courses of IV antibiotics. Patient has chest port/ central line over right chest that was placed 1 year ago. Patient reports that he has been having worsening upper extremity pain with erythema an subjective fevers. Patient was last on IV antibiotics around 3 to 4 months ago. Patient reports that he follows with Dr. Bailey from Infectious Disease and has been seen in the past by Dr. Byrd of orthopedics. In the ED, patient was started on Zosyn and Daptomycin by Ed physician who was concerned for osteomyelitis vs abscess of right upper extremity as the right upper extremity ultrasound showed 4.4 x 0.7 x 3.5 cm of possible fluid collection which is located proximal of patient right shoulder scar. No DVT of right upper extremity Past Medical/Surgical History Medical Problems: (1) History of MRSA infection Status: Chronic (2) Peripheral neuropathy Status: Chronic Surgical Problems: (1) H/O shoulder surgery Status: Resolved (2) History of dental surgery Status: Resolved (3) S/p closure of anal fissure Status: Resolved (4) S/p kidney stone removal Status: Resolved (5) S/p placement of Patten catheter Status: Resolved (6) Status post debridement Status: Resolved Family History Cancer Diabetes mellitus Heart disease Hypertension Social History Smoking Status: Never Smoker Drug Use: none Marital Status: Housing status: lives with significant other Occupational Status: employed Immunizations History of Influenza Vaccine: Unknown History of Tetanus Vaccine?: Unknown History of Pneumococcal: No History of Hepatitis B Vaccine: Unknown Multi-Drug Resistant Organisms History of MDRO: Yes Type of MDRO: VRE, MRSA Allergies Coded Allergies: Iodinated Diagnostic Agents (Verified Allergy, Severe, anaphylaxis, ) Levofloxacin (Verified Allergy, Intermediate, RASH, 12/13/16) Patient received Levaquin during a previous admission (2013) but now has a rash with current administration of IV Levaquin Ciprofloxacin (Verified Allergy, Mild, RASH, 12/13/16) Morphine (Verified Allergy, Unknown, hives, 12/13/16) Home Medications No Active Prescriptions or Reported Meds Review of Systems Constitutional: + fever Eyes: No worsening of vision, No eye pain, No redness, No discharge, No diplopia, No problem reported ENT: No hearing loss, No unusual epistaxis, No nasal symptoms, No sore throat, No tinnitus, No dental problems, No trouble swallowing, No problem reported Respiratory: No cough, No sputum, No wheezing, No shortness of breath, No dyspnea on exertion, No dyspnea at rest, No hemoptysis, No problem reported Cardiovascular: No chest pain, No orthopnea, No PND, No edema, No claudication , No palpitations, No problem reported Abdomen: No pain, No nausea, No vomiting, No diarrhea, No constipation, No GI bleeding, No problem reported Musculoskeletal: + joint pain (right upper extremity), + swelling (right upper extremity), + problem reported (limited motion of right upper extremity) Genitourinary - Male: No dysuria Neurologic: No paralysis Psychiatric: No substance abuse Endocrine: No fatigue Hematologic / Lymphatic: No abnormal bleeding/bruising Integumentary: No rash Physical Exam Vital Signs Date Time Temp Pulse Resp B/P (MAP) Pulse Ox O2 Delivery O2 Flow Rate FiO2 07/04/17 04:30 Room Air 07/04/17 03:58 95 Room Air 07/04/17 03:42 37.8 110 20 117/74 (88) 95 Room Air 07/04/17 03:10 38.0 115 19 163/110 (127) 93 Room Air 07/04/17 02:57 101 20 150/98 94 07/04/17 00:28 36.9 105 22 124/87 94 Room Air 07/03/17 23:13 98 Room Air 07/03/17 21:15 38.2 111 18 130/88 98 Room Air General Appearance: + mild distress (from pain) Head: normocephalic, atraumatic Eyes: normal inspection, EOMI, sclerae normal ENT: normal ENT inspection, TMs normal, pharynx normal Neck: supple, thyroid normal, no JVD, trachea midline Respiratory/Chest: chest non-tender, lungs clear, normal breath sounds, no respiratory distress, no accessory muscle use, + pertinent finding (right chest port without erythema or tenderness) Cardiovascular: no edema, no JVD, normal peripheral pulses, + tachycardia Abdomen/GI: normal bowel sounds, non tender, soft Back: normal inspection, no CVA tenderness, no muscle spasm, normal range of motion Extremities/Musculoskelatal: normal inspection, no calf tenderness, no pedal edema, normal range of motion Neurologic/Psych: alert, normal mood/affect, oriented x 3, + pertinent finding (patient has limited range of motion of right shoulder and elbow) Skin: + pertinent finding (right upper extremity with old scar over tattoo, right upper extremity from shoulder to elbow is red and warm) Diagnostics Laboratory Results Results Past 24 Hours Test 07/03/17 22:50 07/03/17 23:15 07/04/17 03:00 Range/Units White Blood Count 14.04 4.8-10.8 K/uL Red Blood Count 5.32 4.7-6.1 M/uL Hemoglobin 14.6 14.0-18.0 g/dL Hematocrit 43.8 42-52 % Mean Corpuscular Volume 82.3 80-100 fL Mean Corpuscular Hemoglobin 27.4 25-34 pg Mean Corpuscular Hemoglobin Concent 33.3 32-36 g/dl Platelet Count 279 130-400 K/uL Mean Platelet Volume 9.5 7.4-10.4 fL Neutrophils (%) (Auto) 78.7 % Lymphocytes (%) (Auto) 11.8 % Monocytes (%) (Auto) 7.5 % Eosinophils (%) (Auto) 1.4 % Basophils (%) (Auto) 0.2 % Neutrophils # (Auto) 11.05 1.4-6.5 K/uL Lymphocytes # (Auto) 1.66 1.2-3.4 K/uL Monocytes # (Auto) 1.06 0.11-0.59 K/uL Eosinophils # (Auto) 0.19 0-0.5 K/uL Basophils # (Auto) 0.03 0-0.2 K/uL RDW Standard Deviation 45.5 36.4-46.3 fL RDW Coefficient of Variation 15.2 11.5-14.5 % Immature Granulocyte % (Auto) 0.4 % Immature Granulocyte # (Auto) 0.05 0.00-0.02 K/uL Prothrombin Time 10.7 9.0-12.0 SECONDS Prothromb Time International Ratio 1.0 0.9-1.1 Activated Partial Thromboplast Time 31.5 21.0-31.0 SECONDS Partial Thromboplastin Ratio 1.2 Sodium Level 136 136-145 mmol/L Potassium Level 3.4 3.5-5.1 mmol/L Chloride Level 101 98-107 mmol/L Carbon Dioxide Level 26 21-32 mmol/L Anion Gap 9.0 3-11 mmol/L Blood Urea Nitrogen 9 7-18 mg/dl Creatinine 1.08 0.60-1.40 mg/dl Est Creatinine Clear Calc Drug Dose 105.1 ml/min Estimated GFR () 99.7 Estimated GFR (Non- 86.0 BUN/Creatinine Ratio 8.6 10-20 Random Glucose 88 70-99 mg/dl Calcium Level 8.5 8.5-10.1 mg/dl Total Bilirubin 0.6 0.2-1 mg/dl Aspartate Amino Transf (AST/SGOT) 21 15-37 U/L Alanine Aminotransferase (ALT/SGPT) 39 12-78 U/L Alkaline Phosphatase 133 45-117 U/L Total Protein 7.9 6.4-8.2 gm/dl Albumin 3.4 3.4-5.0 gm/dl Globulin 4.5 2.5-4.0 gm/dl Albumin/Globulin Ratio 0.8 0.9-2 Influenza Type A Antigen Neg for Influ A NEG Influenza Type B Antigen Neg for Influ B NEG Urine Color YELLOW Urine Appearance CLEAR CLEAR Urine pH 5.0 4.5-7.5 Urine Specific Premium >= 1.030 1.000-1.030 Urine Protein 1+ NEG Urine Glucose (UA) NEG NEG Urine Ketones 1+ NEG Urine Occult Blood TRACE NEG Urine Nitrite NEG NEG Urine Bilirubin NEG NEG Urine Urobilinogen NEG NEG Urine Leukocyte Esterase NEG NEG Urine RBC 0-4 0-4 /hpf Urine WBC 0 0-5 /hpf Urine Epithelial Cells 0-5 0-5 /lpf Urine Amorphous Sediment PRESENT NONE PRSENT Urine Bacteria NEG NEG Urine Hyaline Casts 0 0-5 /lpf Microbiology Results 07/03/17 Blood Culture, Received Pending 07/03/17 Blood Culture, Received Pending Impression Assessment and Plan This is a 41 year old M with recurrent infections/osteomyelitis of right upper extremities after sustaining mechanical injury in 2011. n the ED, patient was started on Zosyn and Daptomycin by ED physician who was concerned for osteomyelitis vs abscess of right upper extremity as the right upper extremity ultrasound showed 4.4 x 0.7 x 3.5 cm of possible fluid collection which is located proximal of patient right shoulder scar. No DVT of right upper extremity -continue Zosyn and Daptomycin as started by ED physician -requesting Infectious disease consult on antibiotic adjustments -requesting orthopedics to evaluate for abscess drainage vs osteomyelitis -patient reports allergies to IV contrast (throat closes, airway difficulties) so any additional imaging as needed by orthopedics will not require IV contrast -patient reports that he has hardware of right shoulder that has been MRI compatible -Will send for CT of upper extremity without IV contrast -follow up blood cultures sent in the ED for bacteremia, blood cultures were drawn peripherally and from central line/right chest port -send ESR, CRP -Patient also reports allergies to levofloxacin, ciprofloxacin and morphine which gives him hives -however was given Dilaudid in the ED -IV Benadryl if develops allergic reactions -if need narcotic pain medications, avoid ileus with senna and Colace -acetaminophen prn for pain and fever DVT ppx: SCD Level of Care Med/Surg Advanced Directives Existing Living Will: Yes Existing Power of Soils Analyst: Yes Resuscitation Status FULL RESUSCITATION VTE Prophylaxis VTE Risk Assessment Done? Y/N: Yes Risk Level: Moderate
--- NOTE | 2017-07-04 06:26 | DIAGNOSTIC IMAGING REPORT ---
R VENOUS DOPPLER UPR EXT UNIL HISTORY: Pain. Edema. right arm swelling COMPARISON STUDY: 02/19/2016 FINDINGS: The internal jugular vein is patent. There is normal flow within the subclavian vein. There is normal flow and compressibility within the left axillary, basilic, brachial, radial, ulnar, and visualized cephalic veins. IMPRESSION: No DVT within the upper extremity. Complex soft tissue collection upper arm described separately The above report was generated using voice recognition software. It may contain grammatical, syntax or spelling errors. Electronically signed by: Natanael Wilson M.D. 07/04/2017 6:25 AM Dictated Date/Time: 07/04/2017 6:24 AM
[2017-07-04] MEDS ORDERED: KETOROLAC TROMETHAMINE 15 MG/ML VIAL IM PRN (06:45)
[2017-07-04] MEDS ORDERED: NURSING VERBAL MED ORDER ONE (07:00)
--- NOTE | 2017-07-04 07:32 | DIAGNOSTIC IMAGING REPORT ---
RIGHT ARM ULTRASOUND CLINICAL HISTORY: right bicep infx, ? Abscess. Right arm pain. COMPARISON STUDY: None. FINDINGS: There is a small linear complex fluid collection within the right upper arm and deep to the patient's scar measuring approximate 4.4 x 3.5 x 0.7 cm. This demonstrates surrounding increased vascularity. IMPRESSION: Small linear complex fluid collection within the right upper arm deep to the patient's scar measuring 4.4 x 3.5 x 0.7 cm. This could represent a postoperative seroma or abscess. Clinical correlation recommended. Electronically signed by: Eddie Vizcarra M.D. 07/04/2017 7:31 AM Dictated Date/Time: 07/04/2017 7:29 AM
[2017-07-04 07:35] LABS: BASO % 0.4 %; BASO ABS # 0.05 K/uL (0-0.2); EOS % 1.1 %; EOS ABS # 0.15 K/uL (0-0.5); HEMATOCRIT 40.1 % (42-52); HEMOGLOBIN 13.3 g/dL (14.0-18.0); IG# 0.05 K/uL (0.00-0.02); LYMPH % 11.5 %; LYMPH ABS # 1.54 K/uL (1.2-3.4); MEAN CELL VOLUME 82.9 fL (80-100); MEAN CORPUSCULAR HEMOGLOBIN 27.5 pg (25-34); MEAN CORPUSCULAR HGB CONC 33.2 g/dl (32-36); MEAN PLATELET VOLUME 9.4 fL (7.4-10.4); MONO % 8.2 %; NEUT % 78.4 %; NEUT ABS # 10.52 K/uL (1.4-6.5); PLATELET COUNT 234 K/uL (130-400); RED CELL DISTRIBUTION WIDTH CV 15.3 % (11.5-14.5); RED CELL DISTRIBUTION WIDTH SD 46.2 fL (36.4-46.3); WHITE BLOOD COUNT 13.41 K/uL (4.8-10.8)
[2017-07-04 08:07] LABS: CALCIUM 7.9 mg/dl (8.5-10.1); CREATININE 1.17 mg/dl (0.60-1.40); POTASSIUM 3.8 mmol/L (3.5-5.1)
[2017-07-04] MEDS: KETOROLAC TROMETHAMINE 15 MG/ML VIAL IV. PRN (08:17)
[2017-07-04] MEDS: SENNA 8.6 MG TAB PO SCH (08:18)
[2017-07-04] MEDS: DOCUSATE SODIUM 100 MG CAP PO SCH ×2 (08:18→20:35)
[2017-07-04] MEDS ORDERED: SENNA 8.6 MG TAB PO SCH (09:00)
[2017-07-04] MEDS ORDERED: DOCUSATE SODIUM 100 MG CAP PO SCH (09:00)
--- NOTE | 2017-07-04 10:22 | DIAGNOSTIC IMAGING REPORT ---
RIGHT SHOULDER CT CT DOSE: 612.58 mGy.cm HISTORY: Right shoulder abscess. Right shoulder pain. rule out osteomyelitis TECHNIQUE: Multiaxial CT images of the right shoulder were performed and reformatted in the sagittal and coronal plane without the use of contrast. A dose lowering technique was utilized adhering to the principles of ALARA. COMPARISON: Right shoulder CT 12/20/2015. Right arm ultrasound 07/03/2017. FINDINGS: No acute fracture or dislocation within the right shoulder. The right clavicle appears intact. Right jugular catheter terminates in the superior cavoatrial junction. No cortical destruction or erosions identified within the visualized osseous structures of the right shoulder to suggest osteomyelitis. Visualized right lung is clear. No significant joint effusion within the right shoulder. Linear area of skin retraction within the lateral aspect of the right shoulder/proximal upper arm. This favors a prior incision site/scar. Deep to the suspected scar there is a 5.0 x 3.1 x 1.3 cm subcutaneous fluid collection which abuts the deltoid muscle. This does not appear to extend into the deltoid muscle on this noncontrast study. This corresponds to the complex fluid collection seen on the prior ultrasound. IMPRESSION: 1. No evidence for osteomyelitis within the right shoulder. 2. Redemonstration of the subcutaneous 5.0 x 3.1 x 1.3 cm fluid collection which abuts the deltoid muscle. This does not appear to extend into the deltoid muscle. This is nonspecific and could represent a postoperative seroma, hematoma or abscess in the appropriate clinical setting. Electronically signed by: Eddie Vizcarra M.D. 07/04/2017 10:21 AM Dictated Date/Time: 07/04/2017 10:15 AM
--- NOTE | 2017-07-04 11:06 | INFECT. DISEASE CONSULTATION ---
DATE OF CONSULTATION: 07/04/2017 HISTORY OF PRESENT ILLNESS: This is a 41-year-old gentleman who has a history of chronic right shoulder infection and has been on multiple courses of antibiotics. He states that he was on IV Zosyn about 3-1/2 months ago and then was transitioned to an oral antibiotic. He cannot recall the name of this, but he states he has been off of antibiotics altogether for at least 2 months. He did notice over the past day or so he had worsening pain in his shoulder along with a swelling of the incision and subjective fevers and chills. He did have an ultrasound done in the ER last night which showed a collection of fluid measuring 4.4 x 0.7 x 3.5 cm in the area of the right shoulder scar. An ortho consultation is pending. He was placed on Zosyn and daptomycin. He is tolerating his antibiotics well. He did have a T-max of 38.2 overnight but is currently afebrile. His sed rate is mildly elevated at 27. His CRP is 7.3. He is awaiting orthopedic evaluation. He is n.p.o. pending potential OR. His remaining review of systems is unremarkable. PAST MEDICAL HISTORY: Significant for neuropathy and recurrent infection and osteomyelitis of the right shoulder. PAST SURGICAL HISTORY: Significant for anal fissure repair, Patten catheter and multiple shoulder surgeries. FAMILY HISTORY: Noncontributory. SOCIAL HISTORY: Negative for tobacco use, alcohol use or drug use. He is and lives with his . ALLERGIES: LEVAQUIN, IODINE, CIPRO AND MORPHINE. CURRENT MEDICATIONS: Include Senokot, Colace, Toradol, Zosyn, Zofran, Tylenol, Benadryl, and he did receive daptomycin in the ER. PHYSICAL EXAMINATION:. VITAL SIGNS: He is currently afebrile. His T-max was 38.2, pulse 96, respiratory rate 18, blood pressure 156/92, oxygen saturation is 94-95% on room air. GENERAL: He is awake, alert and oriented x3. He is in no acute distress. HEENT: Mucous membranes are moist. Extraocular muscles are intact. HEART: Regular. LUNGS: Clear. ABDOMEN: Soft, nontender, nondistended. There is no lower extremity edema. SKIN: Without rash. Right-sided A-port is in place. This is clean, dry and intact with no surrounding induration, erythema or streaking. There is no tenderness to palpation. Examination of the right shoulder reveals warmth and erythema around the incision. There is no open area of purulent drainage or bleeding. LABORATORY STUDIES: CBC today reveals a white blood cell count of 13.4, hemoglobin 13.3, platelets of 234. Sed rate is 27. Chemistry panel reveals a sodium of 136, potassium 3.8, chloride 103, bicarbonate 27, BUN 9, creatinine 1.1, glucose is 121. LFTs are within normal limits. CRP is 7.3. Urinalysis was unremarkable. Flu swab was negative. Blood cultures are pending. IMAGING: As above. Chest x-ray done in the ER was negative. CAT scan of the shoulder was done this morning shows no evidence for osteomyelitis, subcutaneous 5 x 3.1 x 1.3 cm fluid collection in the deltoid muscle which does not extend into the muscle itself. ASSESSMENT AND PLAN: Osteomyelitis and infected shoulder. He will remain on empiric antibiotics pending additional culture data. Thank you for this consultation.
--- NOTE | 2017-07-04 11:18 | Progress Note ---
Progress Note Date of Service Jul 04, 2017. Progress Note ID Consult Dictated #[id number] A/P: 1. Right shoulder fluid collection -continue abx, follow cultures -Will follow, thank you
[2017-07-04] MEDS ORDERED: PIPERACILL/TAZOBAC CONSULT ACTIVE PRN (11:45)
[2017-07-04] MEDS ORDERED: TAPENTADOL HCL 50 MG TAB PO PRN (13:15)
[2017-07-04] MEDS ORDERED: OXYCODONE HCL IR 5 MG TAB (IMMEDIATE RELEASE) PO ONE (17:45)
[2017-07-04] MEDS: OXYCODONE HCL IR 5 MG TAB (IMMEDIATE RELEASE) PO PRN (18:07)
--- NOTE | 2017-07-04 18:08 | Orthopedic Consultation ---
Orthopedic Consultation Date of Consultation: Jul 04, 2017. Attending Physician: Felipe Clark M.D. Reason for Consultation: Recurrent abscess right shoulder History of Present Illness 41-year-old male with recurrent abscesses lateral incision right shoulder. Infection is never been completely eradicated despite multiple surgical procedures. Patient was off antibiotics doing well for a period of time and have recurrent symptoms and fever and signs of infection again in the lateral incision. Past Medical/Surgical History Medical Problems: (1) Abscess of right arm Status: Acute (2) Abscess of right shoulder Status: Acute (3) Cellulitis of shoulder Status: Acute (4) Cellulitis of shoulder Status: Acute (5) Fever Status: Acute (6) Hypokalemia Status: Acute (7) Hypotension Status: Acute (8) Infection of shoulder Status: Acute (9) Right arm cellulitis Status: Acute (10) Sepsis Status: Acute (11) Sepsis Status: Acute (12) Sepsis Status: Acute (13) Septic arthritis of shoulder, right Status: Acute (14) Septic joint of right shoulder region Status: Acute (15) Shoulder pain Status: Acute Family History Cancer Diabetes mellitus Heart disease Hypertension Social History Smoking Status: Never Smoker Drug Use: none Marital Status: Housing Status: lives with family Occupation Status: employed Allergies Coded Allergies: Iodinated Diagnostic Agents (Verified Allergy, Severe, anaphylaxis, ) Levofloxacin (Verified Allergy, Intermediate, RASH, 12/13/16) Patient received Levaquin during a previous admission (2013) but now has a rash with current administration of IV Levaquin Ciprofloxacin (Verified Allergy, Mild, RASH, 12/13/16) Morphine (Verified Allergy, Unknown, hives, 12/13/16) Home Medications No Active Prescriptions or Reported Meds Current Inpatient Medications Current Inpatient Medications Medications (Trade) Dose Ordered Sig/Diane Route Start Time Stop Time Status Last Admin Dose Admin Ondansetron HCl (Zofran Inj) 4 mg Q6H PRN IV 07/04/17 02:30 08/03/17 02:29 07/04/17 04:42 4 MG Acetaminophen (Tylenol Tab) 650 mg Q4H PRN PO 07/04/17 02:30 08/03/17 02:29 Senna (Senokot Tab) 8.6 mg QAM PO 07/04/17 09:00 08/03/17 08:59 Docusate Sodium (coLACE CAP) 100 mg BID PO 07/04/17 09:00 08/03/17 08:59 Diphenhydramine HCl (Benadryl Inj) 12.5 mg Q6 PRN IV 07/04/17 02:30 08/03/17 02:29 Piperacillin Sod/ Tazobactam Sod 3.375 gm/Dextrose 115 ml @ 28 mls/hr Q8H IV 07/04/17 04:00 07/14/17 03:59 07/04/17 12:19 28 MLS/HR Ketorolac Tromethamine (Toradol Inj) 15 mg Q6H PRN IV. 07/04/17 07:00 07/09/17 06:44 07/04/17 08:17 15 MG Piperacillin Sod/ Tazobactam Sod (Consult) 1 ea UD PRN N/A 07/04/17 11:45 08/03/17 11:44 Oxycodone HCl (Roxicodone Immediate Rel Tab) 10 mg Q6H PRN PO 07/04/17 17:30 07/18/17 17:29 Review of Systems Constitutional: + fever, + chills, + sweats, + fatigue Eyes: No worsening of vision, No eye pain, No redness, No discharge, No diplopia, No problem reported ENT: No hearing loss, No unusual epistaxis, No nasal symptoms, No sore throat, No tinnitus, No dental problems, No trouble swallowing, No problem reported Respiratory: No cough, No sputum, No wheezing, No shortness of breath, No dyspnea on exertion, No dyspnea at rest, No hemoptysis, No problem reported Cardiovascular: No chest pain, No orthopnea, No PND, No edema, No claudication , No palpitations, No problem reported Abdomen: No pain, No nausea, No vomiting, No diarrhea, No constipation, No GI bleeding, No problem reported Musculoskeletal: + joint pain, + muscle pain, + swelling, + problem reported ( increased pain and swelling right shoulder) Genitourinary - Male: No hematuria, No dysuria, No urinary frequency, No urinary urgency, No urinary hesitancy, No urinary retention, No urinary incontinence, No penile discharge, No lesions, No impotence, No problem reported Psychiatric: No depression symptoms, No anhedonism, No anxiety, No insomnia, No substance abuse, No problem reported Endocrine: No fatigue, No excessive thirst, No excessive urination, No problem reported Hematologic / Lymphatic: No abnormal bleeding/bruising, No clotting problems, No swollen lymph nodes, No night sweats, No problem reported Integumentary: + problem reported (increased swelling redness shoulder), No rash, No itch, No new/changing skin lesions, No color change, No bleeding Allergic / Immunologic: No environmental allergies, No seasonal allergies, No pet sensitivities, No food allergies, No hives, No frequent infections, No poor healing, No prolonged convalescence, No problem reported Physical Exam Date Time Temp Pulse Resp B/P (MAP) Pulse Ox O2 Delivery O2 Flow Rate FiO2 07/04/17 15:16 35.8 87 18 168/92 (117) 95 Room Air 07/04/17 08:10 Room Air 07/04/17 07:14 37.4 96 18 156/92 (113) 94 Room Air 07/04/17 04:30 Room Air 07/04/17 03:58 95 Room Air 07/04/17 03:42 37.8 110 20 117/74 (88) 95 Room Air 07/04/17 03:10 38.0 115 19 163/110 (127) 93 Room Air 07/04/17 02:57 101 20 150/98 94 07/04/17 00:28 36.9 105 22 124/87 94 Room Air 07/03/17 23:13 98 Room Air 07/03/17 21:15 38.2 111 18 130/88 98 Room Air Extremities/Musculoskelatal: + pertinent finding (right shoulder range of motion limited forward elevation and abduction to 70 external rotation to 30. Fluctuance under upper third of scar with chronic widened scar swelling and some mild erythema around scar.) Laboratory Results Last 24 Hours Test 07/03/17 22:50 07/03/17 23:15 07/04/17 03:00 07/04/17 07:11 White Blood Count 14.04 K/uL 13.41 K/uL Red Blood Count 5.32 M/uL 4.84 M/uL Hemoglobin 14.6 g/dL 13.3 g/dL Hematocrit 43.8 % 40.1 % Mean Corpuscular Volume 82.3 fL 82.9 fL Mean Corpuscular Hemoglobin 27.4 pg 27.5 pg Mean Corpuscular Hemoglobin Concent 33.3 g/dl 33.2 g/dl Platelet Count 279 K/uL 234 K/uL Mean Platelet Volume 9.5 fL 9.4 fL Neutrophils (%) (Auto) 78.7 % 78.4 % Lymphocytes (%) (Auto) 11.8 % 11.5 % Monocytes (%) (Auto) 7.5 % 8.2 % Eosinophils (%) (Auto) 1.4 % 1.1 % Basophils (%) (Auto) 0.2 % 0.4 % Neutrophils # (Auto) 11.05 K/uL 10.52 K/uL Lymphocytes # (Auto) 1.66 K/uL 1.54 K/uL Monocytes # (Auto) 1.06 K/uL 1.10 K/uL Eosinophils # (Auto) 0.19 K/uL 0.15 K/uL Basophils # (Auto) 0.03 K/uL 0.05 K/uL RDW Standard Deviation 45.5 fL 46.2 fL RDW Coefficient of Variation 15.2 % 15.3 % Immature Granulocyte % (Auto) 0.4 % 0.4 % Immature Granulocyte # (Auto) 0.05 K/uL 0.05 K/uL Prothrombin Time 10.7 SECONDS Prothromb Time International Ratio 1.0 Activated Partial Thromboplast Time 31.5 SECONDS Partial Thromboplastin Ratio 1.2 Sodium Level 136 mmol/L 136 mmol/L Potassium Level 3.4 mmol/L 3.8 mmol/L Chloride Level 101 mmol/L 103 mmol/L Carbon Dioxide Level 26 mmol/L 27 mmol/L Anion Gap 9.0 mmol/L 7.0 mmol/L Blood Urea Nitrogen 9 mg/dl 9 mg/dl Creatinine 1.08 mg/dl 1.17 mg/dl Est Creatinine Clear Calc Drug Dose 105.1 ml/min 97.0 ml/min Estimated GFR () 99.7 90.5 Estimated GFR (Non- 86.0 78.1 BUN/Creatinine Ratio 8.6 7.8 Random Glucose 88 mg/dl 121 mg/dl Calcium Level 8.5 mg/dl 7.9 mg/dl Total Bilirubin 0.6 mg/dl 0.8 mg/dl Aspartate Amino Transf (AST/SGOT) 21 U/L 18 U/L Alanine Aminotransferase (ALT/SGPT) 39 U/L 33 U/L Alkaline Phosphatase 133 U/L 114 U/L Total Protein 7.9 gm/dl 7.0 gm/dl Albumin 3.4 gm/dl 3.0 gm/dl Globulin 4.5 gm/dl 4.0 gm/dl Albumin/Globulin Ratio 0.8 0.7 Influenza Type A Antigen Neg for Influ A Influenza Type B Antigen Neg for Influ B Urine Color YELLOW Urine Appearance CLEAR Urine pH 5.0 Urine Specific [place] >= 1.030 Urine Protein 1+ Urine Glucose (UA) NEG Urine Ketones 1+ Urine Occult Blood TRACE Urine Nitrite NEG Urine Bilirubin NEG Urine Urobilinogen NEG Urine Leukocyte Esterase NEG Urine RBC 0-4 /hpf Urine WBC 0 /hpf Urine Epithelial Cells 0-5 /lpf Urine Amorphous Sediment PRESENT Urine Bacteria NEG Urine Hyaline Casts 0 /lpf Erythrocyte Sedimentation Rate 27 mm/hr Magnesium Level 2.0 mg/dl C-Reactive Protein 7.39 mg/dl Assessment & Plan Recurrent abscess right shoulder. Fluid collection identified on ultrasound and CT scan with no evidence of osteomyelitis and notes of any deep infection. This appears to be once again a superficial infection. Patient's had multiple organisms including resistant organisms grow from this site in the past. Last set of organisms were gram-negative. Plan is to repeat incision and drainage and likely place antibiotic beads with gentamicin and likely drains. Patient to be nothing by mouth midnight.
[2017-07-05 00:15] VITALS: O2SAT 95
[2017-07-05] MEDS: KETOROLAC TROMETHAMINE 15 MG/ML VIAL IV. PRN ×2 (00:35→22:19)
--- NOTE | 2017-07-05 00:55 | Progress Note ---
Medicine Progress Note Date & Time of Visit: Jul 04, 2017 at ~ 17:00 . Subjective CC: Follow-up visit for fever, right shoulder pain. HPI: Admitted last night with fever and right shoulder pain. History of recurrent infections right shoulder. T max 38.2. Severe shoulder pain, unrelieved by ketorolac or tapentadol. ROS: General- as noted above in HPI Resp- no cough; no shortness of breath Cardiac- no chest pain, no edema GI- nausea, no vomiting, no diarrhea - no dysuria, no difficulty voiding . Objective Last 8 Hrs Date Time Temp Pulse Resp B/P (MAP) Pulse Ox O2 Delivery O2 Flow Rate FiO2 07/04/17 23:10 37.1 81 18 132/80 (97) 96 Room Air Physical Exam: General- appears to be uncomfortable Lungs- clear Cardiovascular- RRR; no gallop; no JVD; no pretibial edema Abdomen- + BS, soft, nontender Extremities- no cyanosis; erythema / warmth / tenderness right shoulder anteriorly, limited ROM Neuro- alert Skin- warm & dry . Laboratory Results: Last 24 Hours Test 07/04/17 03:00 07/04/17 07:11 Urine Color YELLOW Urine Appearance CLEAR Urine pH 5.0 Urine Specific [place] >= 1.030 Urine Protein 1+ Urine Glucose (UA) NEG Urine Ketones 1+ Urine Occult Blood TRACE Urine Nitrite NEG Urine Bilirubin NEG Urine Urobilinogen NEG Urine Leukocyte Esterase NEG Urine RBC 0-4 /hpf Urine WBC 0 /hpf Urine Epithelial Cells 0-5 /lpf Urine Amorphous Sediment PRESENT Urine Bacteria NEG Urine Hyaline Casts 0 /lpf White Blood Count 13.41 K/uL Red Blood Count 4.84 M/uL Hemoglobin 13.3 g/dL Hematocrit 40.1 % Mean Corpuscular Volume 82.9 fL Mean Corpuscular Hemoglobin 27.5 pg Mean Corpuscular Hemoglobin Concent 33.2 g/dl Platelet Count 234 K/uL Mean Platelet Volume 9.4 fL Neutrophils (%) (Auto) 78.4 % Lymphocytes (%) (Auto) 11.5 % Monocytes (%) (Auto) 8.2 % Eosinophils (%) (Auto) 1.1 % Basophils (%) (Auto) 0.4 % Neutrophils # (Auto) 10.52 K/uL Lymphocytes # (Auto) 1.54 K/uL Monocytes # (Auto) 1.10 K/uL Eosinophils # (Auto) 0.15 K/uL Basophils # (Auto) 0.05 K/uL RDW Standard Deviation 46.2 fL RDW Coefficient of Variation 15.3 % Immature Granulocyte % (Auto) 0.4 % Immature Granulocyte # (Auto) 0.05 K/uL Erythrocyte Sedimentation Rate 27 mm/hr Sodium Level 136 mmol/L Potassium Level 3.8 mmol/L Chloride Level 103 mmol/L Carbon Dioxide Level 27 mmol/L Anion Gap 7.0 mmol/L Blood Urea Nitrogen 9 mg/dl Creatinine 1.17 mg/dl Est Creatinine Clear Calc Drug Dose 97.0 ml/min Estimated GFR () 90.5 Estimated GFR (Non- 78.1 BUN/Creatinine Ratio 7.8 Random Glucose 121 mg/dl Calcium Level 7.9 mg/dl Magnesium Level 2.0 mg/dl Total Bilirubin 0.8 mg/dl Aspartate Amino Transf (AST/SGOT) 18 U/L Alanine Aminotransferase (ALT/SGPT) 33 U/L Alkaline Phosphatase 114 U/L C-Reactive Protein 7.39 mg/dl Total Protein 7.0 gm/dl Albumin 3.0 gm/dl Globulin 4.0 gm/dl Albumin/Globulin Ratio 0.7 Assessment & Plan FEVER / RIGHT SHOULDER PAIN Apparent recurrent infection. US and CT demonstrate fluid collection, seroma vs abscess. Ortho and ID consulted. Severe pain, not controlled with ketorolac or tapentadol. Spoke with Pain Management; no interventional options. Will need narcotic analgesics at this time for adequate pain control. [facility]; has not received any controlled substances since January 2017. Start oxycodone 10 mg q 6 h PRN. Receiving daptomycin and piperacillin / tazobactam. I&D anticipated. VTE PROPHYLAXIS SCD's ordered. DISPOSITION Expected discharge to home. . Current Inpatient Medications: Current Inpatient Medications Medications (Trade) Dose Ordered Sig/Diane Route Start Time Stop Time Status Last Admin Dose Admin Ondansetron HCl (Zofran Inj) 4 mg Q6H PRN IV 07/04/17 02:30 2 02:29 07/04/17 04:42 4 MG Acetaminophen (Tylenol Tab) 650 mg Q4H PRN PO 07/04/17 02:30 08/03/17 02:29 Senna (Senokot Tab) 8.6 mg QAM PO 07/04/17 09:00 08/03/17 08:59 Docusate Sodium (coLACE CAP) 100 mg BID PO 07/04/17 09:00 08/03/17 08:59 Diphenhydramine HCl (Benadryl Inj) 12.5 mg Q6 PRN IV 07/04/17 02:30 08/03/17 02:29 Piperacillin Sod/ Tazobactam Sod 3.375 gm/Dextrose 115 ml @ 28 mls/hr Q8H IV 07/04/17 04:00 07/14/17 03:59 07/04/17 20:35 28 MLS/HR Ketorolac Tromethamine (Toradol Inj) 15 mg Q6H PRN IV. 07/04/17 07:00 07/09/17 06:44 07/05/17 00:35 15 MG Piperacillin Sod/ Tazobactam Sod (Consult) 1 ea UD PRN N/A 07/04/17 11:45 08/03/17 11:44 Oxycodone HCl (Roxicodone Immediate Rel Tab) 10 mg Q6H PRN PO 07/04/17 17:30 07/18/17 17:29 07/04/17 18:07 10 MG
[2017-07-05] MEDS: PIPERACILL/TAZOBAC IV 3.375 GM in DEXTROSE 5% 100ML 100 ML IV SCH ×3 (04:53→19:45)
[2017-07-05] MEDS ORDERED: DAPTOmycin IV 400 MG in SODIUM CHLORIDE 0.9% 50ML 50 ML IV SCH (06:00)
[2017-07-05] MEDS: DAPTOmycin IV 400 MG in SYRINGE 0 ML IV SCH (07:09)
[2017-07-05 07:21] VITALS: BP 117/81; PULSE 80; TEMP 36.4; O2SAT 93
[2017-07-05 07:45] VITALS: O2SAT 93
[2017-07-05] MEDS: OXYCODONE HCL IR 5 MG TAB (IMMEDIATE RELEASE) PO PRN ×2 (07:48→19:14)
[2017-07-05] MEDS: DOCUSATE SODIUM 100 MG CAP PO SCH ×2 (08:21→21:00)
[2017-07-05] MEDS: SENNA 8.6 MG TAB PO SCH (08:21)
[2017-07-05 13:38] VITALS: Ht 175.3 cm; Wt 96.2 kg
--- NOTE | 2017-07-05 14:49 | Progress Note ---
Subjective Date of Service: Jul 05, 2017. Subjective afebrile, for OR washout, blood cultures negative, fevers better. tolerating abx. Problem List Medical Problems: (1) Abscess of right arm Status: Acute (2) Abscess of right shoulder Status: Acute (3) Cellulitis of shoulder Status: Acute (4) Cellulitis of shoulder Status: Acute (5) Fever Status: Acute (6) Hypokalemia Status: Acute (7) Hypotension Status: Acute (8) Infection of shoulder Status: Acute (9) Right arm cellulitis Status: Acute (10) Sepsis Status: Acute (11) Sepsis Status: Acute (12) Sepsis Status: Acute (13) Septic arthritis of shoulder, right Status: Acute (14) Septic joint of right shoulder region Status: Acute (15) Shoulder pain Status: Acute Objective Vital Signs Date Time Temp Pulse Resp B/P (MAP) Pulse Ox O2 Delivery O2 Flow Rate FiO2 07/05/17 07:45 93 Room Air 07/05/17 07:21 36.4 80 16 117/81 (93) 93 Room Air 07/05/17 00:15 95 Room Air 07/04/17 23:10 37.1 81 18 132/80 (97) 96 Room Air 07/04/17 15:20 95 Room Air 07/04/17 15:16 35.8 87 18 168/92 (117) 95 Room Air Laboratory Results Item Value Date Time Blood Culture - Preliminary Resulted 07/03/17 2300 Blood NO GROWTH TO DATE. Blood Culture - Preliminary Resulted 07/03/17 2250 Blood NO GROWTH TO DATE. Assessment and Plan (1) Abscess of right shoulder Assessment & Plan: continue abx, follow cultures
[2017-07-05] MEDS ORDERED: BACITRACIN 50000 UNIT VIAL ONE (14:51)
[2017-07-05] MEDS ORDERED: GENTAMICIN SULFATE 40 MG/ML 2 ML VIAL ONE ×2 (14:52→15:47)
--- NOTE | 2017-07-05 14:56 | Progress Note ---
Orthopedic SOAP Note Subjective Date of Service: Jul 05, 2017. Additional Notes: no change in symptoms Problem List Medical Problems: (1) Abscess of right arm Status: Acute (2) Abscess of right shoulder Status: Acute (3) Cellulitis of shoulder Status: Acute (4) Cellulitis of shoulder Status: Acute (5) Fever Status: Acute (6) Hypokalemia Status: Acute (7) Hypotension Status: Acute (8) Infection of shoulder Status: Acute (9) Right arm cellulitis Status: Acute (10) Sepsis Status: Acute (11) Sepsis Status: Acute (12) Sepsis Status: Acute (13) Septic arthritis of shoulder, right Status: Acute (14) Septic joint of right shoulder region Status: Acute (15) Shoulder pain Status: Acute Objective exam similar to yesterday,swelling of scar upper third Date Time Temp Pulse Resp B/P (MAP) Pulse Ox O2 Delivery O2 Flow Rate FiO2 07/05/17 07:45 93 Room Air 07/05/17 07:21 36.4 80 16 117/81 (93) 93 Room Air 07/05/17 00:15 95 Room Air 07/04/17 23:10 37.1 81 18 132/80 (97) 96 Room Air 07/04/17 15:20 95 Room Air 07/04/17 15:16 35.8 87 18 168/92 (117) 95 Room Air Assessment recurrent abscess right shoulder between skin and fascia not deeper per ct scan Plan irrigation and debridement,placement antibiotic beads and drain.
[2017-07-05] MEDS ORDERED: EpHEDrine SULFATE INJ 50 MG/ML AMP IV PRN (15:00)
[2017-07-05] MEDS ORDERED: PROPOFOL IV EMULSION 10 MG/ML 20 ML VIAL IV ONE (15:00)
[2017-07-05] MEDS ORDERED: ONDANSETRON INJ 2 MG/ML 2 ML VIAL IV PRN (15:00)
[2017-07-05] MEDS ORDERED: ATROPINE SULFATE 0.1 MG/ML 5ML SYR IV PRN (15:00)
[2017-07-05] MEDS ORDERED: LIDOCAINE HCL 2% 2 ML VIAL (20MG/ML) ONE (15:00)
[2017-07-05] MEDS ORDERED: PROMETHAZINE HCL INJ 6.25 MG in SODIUM CHLORIDE 0.9% 50ML 50 ML IV PRN (15:00)
[2017-07-05] MEDS ORDERED: ONDANSETRON INJ 2 MG/ML 2 ML VIAL ONE (15:00)
[2017-07-05] MEDS ORDERED: MIDAZOLAM HCL 1 MG/ML 2ML VIAL ONE (15:01)
[2017-07-05] MEDS ORDERED: FENTANYL CITRATE INJ 50 MCG/1 ML 2 ML VIAL ONE ×2 (15:01→15:46)
[2017-07-05] MEDS ORDERED: VANCOMYCIN HCL 1000MG/20ML VIAL ONE (15:47)
--- NOTE | 2017-07-05 16:47 | [facility] Post Operative Brief Note ---
Immediate Operative Summary Operative Date Jul 05, 2017. Pre-Operative Diagnosis Recurrent right shoulder abcess Post-Operative Diagnosis Same as preoperative diagnosis Procedure(s) Performed Right Shoulder Incision Drainage of Right Shoulder Abcess with placement Stimulan Beads and drains Surgeon Dr. Byrd [employer] Production Manager Surgeon(s) None Estimated Blood Loss 30ml Findings sonia pus collection subcutaneous Specimens culture #1 right shoulder aerobic, anerobic, gram stain, fungus sent 1600 Drains 2 hemovac Anesthesia general Complication(s) None Disposition Recovery Room / PACU
[2017-07-05] MEDS: FENTANYL CITRATE INJ 50 MCG/1 ML 2 ML VIAL IV PRN ×4 (17:02→17:20)
[2017-07-05] MEDS: HYDROmorphone INJ 1 MG/ML SYR IV PRN ×2 (17:25→17:30)
--- NOTE | 2017-07-05 17:27 | Anesthesiology Progress Note ---
Anesthesia Post Op Note Date & Time Jul 05, 2017 at 17:27 Vital Signs Vital Signs Past 12 Hours Date Time Temp Pulse Resp B/P (MAP) Pulse Ox O2 Delivery O2 Flow Rate FiO2 07/05/17 17:15 71 16 129/76 100 Nasal Cannula 3 07/05/17 17:05 74 16 122/85 100 Nasal Cannula 3 07/05/17 16:55 83 16 128/89 100 Oxymask 10 07/05/17 16:45 69 14 109/67 100 Oxymask 10 07/05/17 16:36 36.2 56 14 106/55 97 Oxymask 10 07/05/17 07:45 93 Room Air 07/05/17 07:21 36.4 80 16 117/81 (93) 93 Room Air Notes Mental Status: alert / awake / arousable, participated in evaluation Pt Amnestic to Procedure: Yes Nausea / Vomiting: adequately controlled Pain: adequately controlled Airway Patency, RR, SpO2: stable & adequate BP & HR: stable & adequate Hydration State: stable & adequate Anesthetic Complications: no major complications apparent
--- NOTE | 2017-07-05 17:55 | OPERATIVE REPORT ---
DATE OF OPERATION: 07/05/2017 INDICATION FOR PROCEDURE: The patient is a 41-year-old male who has had recurrent abscesses of his right shoulder and has had multiple operations and irrigation and debridements of the abscess and has never had complete resolution of his condition. There are new studies demonstrating a CAT scan demonstrating a superficial abscess on the subcutaneous tissues but not into the deltoid muscle. There is also an ultrasound also demonstrating a subcutaneous fluid collection. There is no clear evidence of a deep collection. PREOPERATIVE DIAGNOSIS: Recurrent abscess right lateral deltoid shoulder region. POSTOPERATIVE DIAGNOSES: Same with sonia pus and subcutaneous abscess overlying the deltoid fascia. OPERATIVE PROCEDURE: Incision and drainage with irrigation, debridement including sharp skin dissection and sharp resection of subcutaneous tissue involving an infection with pulsatile lavage irrigation and placement of antibiotic beads with vancomycin and gentamicin and closure over a Hemovac drain. SURGEON: Dr. Byrd. JD EDWARDS DEVELOPER: None. ANESTHESIA: General. DESCRIPTION OF PROCEDURE: The patient was taken to the operating room and anesthetized under general anesthetic. He was placed on the operating room table on a 40 degree beach chair position with a towel roll in the medial border of his right scapula, so his shoulder could be rotated removed off the table. His head was placed on a foam headrest. His right upper extremity was prepped and draped with ChloraPrep. Examination demonstrated he had passive forward elevation to 160 degrees, abduction to about 110 degrees of external rotation, internal rotation to 70. His scar, he had erythema around the scar and there was an area of fluctuance in the upper third of the incision consists with fluid collection. There was no active drainage. After shoulder was sterilely prepped and draped using ChloraPrep, a longitudinal incision was made through his old scar and sonia pus was noted after incising into the subcutaneous tissues. We got cultures and we sent some tissue for fungus culture and opened up the incision for about a distance of about 4-5 cm and irrigated out the subcutaneous area. I used some digital manipulation just to break up some of the subcutaneous flaps off the fascia, looked for any deep sinus tract, but I could not see any definitively. There was a little rent in the deltoid fibers that we looked into, but did not see any sinus tract and that area was irrigated out copiously. After 3 liters of antibiotic solution with bacitracin and pulsatile lavage irrigation and then we changed gloves then did some further debridement of the scar tissue, subcutaneous tissue using scalpel and a rongeur and then used another 3 liters of pulsatile lavage antibiotic solution and bacitracin. Then, we mixed antibiotic beads with vancomycin and gentamicin with stimulant beads and then placed 2 Hemovac drains and laid them between the fascia and subcutaneous flaps and then placed the antibiotic beads in to the fascia and subcutaneous tissues and then closed the skin and subcutaneous tissues with #2 nylon vertical mattress sutures and then [employer], 4 x 4s, ABDs were applied and foam tape. The patient had about 30 mL of blood loss and tolerated the procedure well. I attest to the content of the Intraoperative Record and any orders documented therein. Any exception s are noted below.
[2017-07-05] MEDS: ONDANSETRON INJ 2 MG/ML 2 ML VIAL IV PRN (18:26)
[2017-07-05 19:10] VITALS: BP 142/113; PULSE 87; TEMP 36.6; O2SAT 94
--- NOTE | 2017-07-05 20:59 | Progress Note ---
Medicine Progress Note Date & Time of Visit: Jul 05, 2017 at ~ 18:00 . Subjective CC: Follow-up visit for abscess right shoulder. HPI: I&D right shoulder abscess performed by Dr. Byrd. Doing well postoperatively. No chest pain. No cough or dyspnea. Has some nausea, no vomiting. Having some postop pain. ROS: as noted above in HPI . Objective Last 8 Hrs Date Time Temp Pulse Resp B/P (MAP) Pulse Ox O2 Delivery O2 Flow Rate FiO2 07/05/17 19:10 36.6 87 16 142/113 (123) 94 Room Air 07/05/17 18:53 Nasal Cannula 2.0 07/05/17 18:45 Nasal Cannula 2.0 07/05/17 17:50 86 16 122/71 98 Nasal Cannula 3 07/05/17 17:45 37.0 86 20 101/62 98 Nasal Cannula 3 07/05/17 17:35 93 14 113/93 100 Nasal Cannula 3 07/05/17 17:25 74 16 104/76 100 Nasal Cannula 3 07/05/17 17:15 71 16 129/76 100 Nasal Cannula 3 07/05/17 17:05 74 16 122/85 100 Nasal Cannula 3 07/05/17 16:55 83 16 128/89 100 Oxymask 10 07/05/17 16:45 69 14 109/67 100 Oxymask 10 07/05/17 16:36 36.2 56 14 106/55 97 Oxymask 10 Physical Exam: General- appears to be uncomfortable Lungs- clear Cardiovascular- RRR; no gallop; no JVD; no pretibial edema Abdomen- + BS, soft, nontender Extremities- no cyanosis; right shoulder bandaged Neuro- alert Skin- warm & dry . 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 Presented with recurrent fevers and worsening shoulder pain. US and CT demonstrate fluid collection, seroma vs abscess. Ortho and ID consulted. Blood culture obtained. Started on empiric antibiotic coverage with daptomycin and piperacillin / tazobactam. I&D performed today. Found to have gross pus. Vancomycin + gentamicin beads placed. Continue daptomycin and piperacillin / tazobactam pending culture results. Continue analgesics. VTE PROPHYLAXIS SCD's ordered. DISPOSITION Expected discharge to home. Orthopedics follow-up with Dr. Byrd. ID follow-up with Drs. Lawson and Lynn. . Current Inpatient Medications: Current Inpatient Medications Medications (Trade) Dose Ordered Sig/Diane Route Start Time Stop Time Status Last Admin Dose Admin Ondansetron HCl (Zofran Inj) 4 mg Q6H PRN IV 07/04/17 02:30 08/03/17 02:29 07/05/17 18:26 4 MG Acetaminophen (Tylenol Tab) 650 mg Q4H PRN PO 07/04/17 02:30 08/03/17 02:29 Senna (Senokot Tab) 8.6 mg QAM PO 07/04/17 09:00 08/03/17 08:59 Docusate Sodium (coLACE CAP) 100 mg BID PO 07/04/17 09:00 08/03/17 08:59 Diphenhydramine HCl (Benadryl Inj) 12.5 mg Q6 PRN IV 07/04/17 02:30 08/03/17 02:29 Piperacillin Sod/ Tazobactam Sod 3.375 gm/Dextrose 115 ml @ 28 mls/hr Q8H IV 07/04/17 04:00 07/14/17 03:59 07/05/17 19:45 28 MLS/HR Ketorolac Tromethamine (Toradol Inj) 15 mg Q6H PRN IV. 07/04/17 07:00 07/09/17 06:44 07/05/17 00:35 15 MG Piperacillin Sod/ Tazobactam Sod (Consult) 1 ea UD PRN N/A 07/04/17 11:45 08/03/17 11:44 Oxycodone HCl (Roxicodone Immediate Rel Tab) 10 mg Q6H PRN PO 07/04/17 17:30 07/18/17 17:29 07/05/17 19:14 10 MG Daptomycin 400 mg/ Syringe 8 ml @ 4 mls/min DAILY@0600 IV 07/05/17 06:00 07/15/17 05:59 07/05/17 07:09 4 MLS/MIN Heparin Sodium (Porcine) (Heparin 10 Unit/ ml 5 ml Flush) 5 ml PRN PRN FLUSH 07/05/17 11:15 08/04/17 11:14
[2017-07-05 23:32] VITALS: BP 130/80; PULSE 88; TEMP 36.7; O2SAT 94
[2017-07-05 23:38] VITALS: O2SAT 94
[2017-07-06] MEDS: OXYCODONE HCL IR 5 MG TAB (IMMEDIATE RELEASE) PO PRN ×5 (01:55→21:46)
[2017-07-06 03:30] VITALS: BP 134/77; PULSE 92; TEMP 36.6; O2SAT 96
[2017-07-06] MEDS: PIPERACILL/TAZOBAC IV 3.375 GM in DEXTROSE 5% 100ML 100 ML IV SCH ×3 (05:02→20:29)
[2017-07-06] MEDS: KETOROLAC TROMETHAMINE 15 MG/ML VIAL IV. PRN ×3 (05:17→18:38)
[2017-07-06] MEDS: DiphenhydrAMINE HCL 50 MG/ML VIAL IV PRN ×3 (05:18→18:37)
[2017-07-06] MEDS: DAPTOmycin IV 400 MG in SYRINGE 0 ML IV SCH (06:16)
[2017-07-06 07:34] VITALS: BP 132/79; PULSE 71; TEMP 36.9; O2SAT 93
[2017-07-06 08:00] VITALS: O2SAT 93
[2017-07-06] MEDS: DOCUSATE SODIUM 100 MG CAP PO SCH ×2 (08:02→20:28)
[2017-07-06] MEDS: SENNA 8.6 MG TAB PO SCH (08:02)
--- NOTE | 2017-07-06 08:41 | Anesthesiology Progress Note ---
Anesthesia Post Op Note Date & Time Jul 06, 2017 at 08:41 Vital Signs Pain Intensity: 7.0 Vital Signs Past 12 Hours Date Time Temp Pulse Resp B/P (MAP) Pulse Ox O2 Delivery O2 Flow Rate FiO2 07/06/17 07:34 36.9 71 18 132/79 (96) 93 Room Air 07/06/17 03:30 36.6 92 18 134/77 (96) 96 Room Air 07/05/17 23:38 94 Room Air 07/05/17 23:32 36.7 88 14 130/80 (97) 94 Room Air Notes Mental Status: alert / awake / arousable, participated in evaluation Pt Amnestic to Procedure: Yes Nausea / Vomiting: adequately controlled Pain: adequately controlled Airway Patency, RR, SpO2: stable & adequate BP & HR: stable & adequate Hydration State: stable & adequate Anesthetic Complications: no major complications apparent
--- NOTE | 2017-07-06 09:46 | Progress Note ---
Subjective Date of Service: Jul 06, 2017. Subjective Pt evaluation today including: conversation w/ patient, physical exam, chart review, lab review pt seen in followup, s/p I&D shoulder yesterday, pain controlled. drain in place. States drain to remain in place through weekend due to significant purulent drainage noted. wound culture growing S. aureus, no sensitivities. blood cultures negative, no f/c. no abd pain, no n/v/d. eating well. All remaining ros reviewed and are negative. Problem List Medical Problems: (1) Abscess of right arm Status: Acute (2) Abscess of right shoulder Status: Acute (3) Cellulitis of shoulder Status: Acute (4) Cellulitis of shoulder Status: Acute (5) Fever Status: Acute (6) Hypokalemia Status: Acute (7) Hypotension Status: Acute (8) Infection of shoulder Status: Acute (9) Right arm cellulitis Status: Acute (10) Sepsis Status: Acute (11) Sepsis Status: Acute (12) Sepsis Status: Acute (13) Septic arthritis of shoulder, right Status: Acute (14) Septic joint of right shoulder region Status: Acute (15) Shoulder pain Status: Acute Objective Vital Signs Date Time Temp Pulse Resp B/P (MAP) Pulse Ox O2 Delivery O2 Flow Rate FiO2 07/06/17 08:00 93 Room Air 07/06/17 07:34 36.9 71 18 132/79 (96) 93 Room Air 07/06/17 03:30 36.6 92 18 134/77 (96) 96 Room Air 07/05/17 23:38 94 Room Air 07/05/17 23:32 36.7 88 14 130/80 (97) 94 Room Air 07/05/17 19:10 36.6 87 16 142/113 (123) 94 Room Air 07/05/17 18:53 Nasal Cannula 2.0 07/05/17 18:45 Nasal Cannula 2.0 07/05/17 17:50 86 16 122/71 98 Nasal Cannula 3 07/05/17 17:45 37.0 86 20 101/62 98 Nasal Cannula 3 07/05/17 17:35 93 14 113/93 100 Nasal Cannula 3 07/05/17 17:25 74 16 104/76 100 Nasal Cannula 3 07/05/17 17:15 71 16 129/76 100 Nasal Cannula 3 07/05/17 17:05 74 16 122/85 100 Nasal Cannula 3 07/05/17 16:55 83 16 128/89 100 Oxymask 10 07/05/17 16:45 69 14 109/67 100 Oxymask 10 07/05/17 16:36 36.2 56 14 106/55 97 Oxymask 10 Physical Exam General Appearance: WD/WN, no apparent distress Eyes: normal inspection, EOMI Neck: supple Respiratory/Chest: lungs clear, normal breath sounds, no respiratory distress Cardiovascular: regular rate, rhythm, no edema Abdomen: non tender, soft Extremities: non-tender Neurologic/Psychiatric: alert, oriented x 3 Skin: normal color, no rash Comments: shoulder dressing c/d/i, drain in place Laboratory Results Item Value Date Time Blood Culture - Preliminary Resulted 07/03/17 2250 Blood NO GROWTH TO DATE. Blood Culture - Preliminary Resulted 07/03/17 2300 Blood NO GROWTH TO DATE. Gram Stain - Preliminary Resulted 07/05/17 1600 Tissue Shoulder, Right Fungal Smear - Final Resulted 07/05/17 1600 Tissue Shoulder, Right Gram Stain - Final Resulted 07/05/17 1600 Tissue Shoulder, Right Assessment and Plan (1) Abscess of right shoulder Assessment & Plan: will continue abx for now, further recs based on culture results.
--- NOTE | 2017-07-06 09:48 | Orthopedic Progress Note ---
Orthopedic Progress Note Date of Service Jul 06, 2017. Subjective Post OP Day: 1 Reports: feeling well Additional Notes: some pain in the right shoulder area but tolerating well. Objective dressing C/D/I, A&O x3, hemovac drainage (25ml latest shift) Date Time Temp Pulse Resp B/P (MAP) Pulse Ox O2 Delivery O2 Flow Rate FiO2 07/06/17 08:00 93 Room Air 07/06/17 07:34 36.9 71 18 132/79 (96) 93 Room Air 07/06/17 03:30 36.6 92 18 134/77 (96) 96 Room Air 07/05/17 23:38 94 Room Air 07/05/17 23:32 36.7 88 14 130/80 (97) 94 Room Air 07/05/17 19:10 36.6 87 16 142/113 (123) 94 Room Air 07/05/17 18:53 Nasal Cannula 2.0 07/05/17 18:45 Nasal Cannula 2.0 07/05/17 17:50 86 16 122/71 98 Nasal Cannula 3 07/05/17 17:45 37.0 86 20 101/62 98 Nasal Cannula 3 07/05/17 17:35 93 14 113/93 100 Nasal Cannula 3 07/05/17 17:25 74 16 104/76 100 Nasal Cannula 3 07/05/17 17:15 71 16 129/76 100 Nasal Cannula 3 07/05/17 17:05 74 16 122/85 100 Nasal Cannula 3 07/05/17 16:55 83 16 128/89 100 Oxymask 10 07/05/17 16:45 69 14 109/67 100 Oxymask 10 07/05/17 16:36 36.2 56 14 106/55 97 Oxymask 10 Assessment & Plan Assessment: POD 1 s/p I&D Right superficial abscess with implantation of antibiotic beads Plan: IV antibx as per ID Team Dressing change Sunday Plan to keep drain in till drainage is minimal
[2017-07-06 10:44] VITALS: BP 126/67; PULSE 96; TEMP 37.4; O2SAT 93
[2017-07-06 15:30] VITALS: BP 109/64; PULSE 80; TEMP 36.6; O2SAT 94
--- NOTE | 2017-07-06 15:31 | Progress Note ---
Medicine Progress Note Date & Time of Visit: Jul 06, 2017 at 15:31 . Subjective CC: Follow-up visit for RUE abscess. HPI: Doing well postoperatively. No chest pain. No cough or dyspnea. A bit anorexic; no nausea or vomiting. Postop pain fairly well-controlled. ROS: as noted above in HPI . Objective Last 8 Hrs Date Time Temp Pulse Resp B/P (MAP) Pulse Ox O2 Delivery O2 Flow Rate FiO2 07/06/17 10:44 37.4 96 16 126/67 (86) 93 Room Air 07/06/17 08:00 93 Room Air 07/06/17 07:34 36.9 71 18 132/79 (96) 93 Room Air Physical Exam: General- no acute distress Lungs- clear Cardiovascular- RRR; no gallop; no JVD; no pretibial edema Abdomen- + BS, soft, nontender Extremities- no cyanosis; right shoulder bandaged Neuro- alert Skin- warm & dry . 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 Presented with recurrent fevers and worsening shoulder pain. US and CT demonstrate fluid collection, seroma vs abscess. Ortho and ID consulted. Blood culture obtained. Started on empiric antibiotic coverage with daptomycin and piperacillin / tazobactam. I&D performed -[id number].- yesterday. [corrected TYRONE 07/07/17 @ 20:55] Found to have gross pus. Wound culture growing Staph. Vancomycin + gentamicin beads placed. Continue daptomycin and piperacillin / tazobactam pending final culture results. Continue analgesics. VTE PROPHYLAXIS SCD's ordered. DISPOSITION Expected discharge to home. Orthopedics follow-up with Dr. Byrd. ID follow-up with Drs. Lawson and Lynn. . Current Inpatient Medications: Current Inpatient Medications Medications (Trade) Dose Ordered Sig/Diane Route Start Time Stop Time Status Last Admin Dose Admin Ondansetron HCl (Zofran Inj) 4 mg Q6H PRN IV 07/04/17 02:30 08/03/17 02:29 07/05/17 18:26 4 MG Acetaminophen (Tylenol Tab) 650 mg Q4H PRN PO 07/04/17 02:30 08/03/17 02:29 Senna (Senokot Tab) 8.6 mg QAM PO 07/04/17 09:00 08/03/17 08:59 Docusate Sodium (coLACE CAP) 100 mg BID PO 07/04/17 09:00 08/03/17 08:59 Diphenhydramine HCl (Benadryl Inj) 12.5 mg Q6 PRN IV 07/04/17 02:30 08/03/17 02:29 07/06/17 11:21 12.5 MG Piperacillin Sod/ Tazobactam Sod 3.375 gm/Dextrose 115 ml @ 28 mls/hr Q8H IV 07/04/17 04:00 07/14/17 03:59 07/06/17 11:32 28 MLS/HR Ketorolac Tromethamine (Toradol Inj) 15 mg Q6H PRN IV. 07/04/17 07:00 07/09/17 06:44 07/06/17 11:21 15 MG Piperacillin Sod/ Tazobactam Sod (Consult) 1 ea UD PRN N/A 07/04/17 11:45 08/03/17 11:44 Oxycodone HCl (Roxicodone Immediate Rel Tab) 10 mg Q6H PRN PO 07/04/17 17:30 07/18/17 17:29 07/06/17 08:01 10 MG Daptomycin 400 mg/ Syringe 8 ml @ 4 mls/min DAILY@0600 IV 07/05/17 06:00 07/15/17 05:59 07/06/17 06:16 4 MLS/MIN Heparin Sodium (Porcine) (Heparin 10 Unit/ ml 5 ml Flush) 5 ml PRN PRN FLUSH 07/05/17 11:15 08/04/17 11:14 07/06/17 09:27 5 ML
[2017-07-06 22:51] VITALS: BP 117/73; PULSE 84; TEMP 37.1; O2SAT 94
[2017-07-07] MEDS: KETOROLAC TROMETHAMINE 15 MG/ML VIAL IV. PRN ×3 (00:41→20:54)
[2017-07-07] MEDS: ONDANSETRON INJ 2 MG/ML 2 ML VIAL IV PRN (00:41)
[2017-07-07] MEDS: DiphenhydrAMINE HCL 50 MG/ML VIAL IV PRN ×4 (00:41→20:54)
[2017-07-07] MEDS: PIPERACILL/TAZOBAC IV 3.375 GM in DEXTROSE 5% 100ML 100 ML IV SCH ×3 (03:49→20:52)
[2017-07-07] MEDS: OXYCODONE HCL IR 5 MG TAB (IMMEDIATE RELEASE) PO PRN ×3 (03:57→18:23)
[2017-07-07] MEDS: DAPTOmycin IV 400 MG in SYRINGE 0 ML IV SCH (05:50)
[2017-07-07 07:34] VITALS: BP 135/79; PULSE 80; TEMP 37; O2SAT 97
--- NOTE | 2017-07-07 08:18 | Orthopedic Progress Note ---
Orthopedic Progress Note Date of Service Jul 07, 2017. Subjective Post OP Day: 2 Reports: feeling well, pain controlled w PO medications, Denies: complaints, chest pain, SOB, nausea / vomiting, light headedness, calf pain Objective calves soft nontender, N/V intact, capillary refill less than 2 sec., dressing C /D/I, incision C/D/I, A&O x3, toes mobile, hemovac drainage (75 last shift) Dressing change performed today. Incision is clean dry and intact. Mild erythema. Neurovascularly intact. Good capillary refill. Date Time Temp Pulse Resp B/P (MAP) Pulse Ox O2 Delivery O2 Flow Rate FiO2 07/07/17 07:34 37.0 80 19 135/79 (97) 97 Room Air 07/06/17 22:51 37.1 84 14 117/73 (88) 94 Room Air 07/06/17 20:30 Room Air 07/06/17 17:00 Room Air 07/06/17 15:30 36.6 80 18 109/64 (79) 94 Room Air 07/06/17 10:44 37.4 96 16 126/67 (86) 93 Room Air Additional Notes: Date/Time Source Procedure Growth Status 07/03/17 23:00 Blood Blood Culture - Preliminary NO GROWTH TO DATE. Resulted 07/05/17 16:00 Tissue Shoulder, Right Fungal Smear - Final Resulted 07/05/17 16:00 Tissue Shoulder, Right Fungal Culture Pending Resulted Assessment & Plan Assessment: POD 2 s/p I&D Right superficial abscess with implantation of antibiotic beads Plan: IV antibx as per ID Team Cultures came back MRSA Dressing change performed today with adaptic, 4x4, ABD and tape Drainage still coming from the site. Will keep the drain in at this point.
[2017-07-07] MEDS: SENNA 8.6 MG TAB PO SCH (08:20)
[2017-07-07] MEDS: DOCUSATE SODIUM 100 MG CAP PO SCH ×2 (08:20→20:53)
[2017-07-07 16:07] VITALS: BP 111/64; PULSE 84; TEMP 37.3; O2SAT 94
--- NOTE | 2017-07-07 19:44 | Progress Note ---
Medicine Progress Note Date & Time of Visit: Jul 07, 2017 at 16:10 . Subjective CC: Follow-up visit for abscess RUE. HPI: Afebrile. Moderate postop pain. ROS: General- no fever, no chills Resp- no cough; no shortness of breath Cardiac- no chest pain, no edema GI- no nausea, no vomiting, no diarrhea . Objective Last 8 Hrs Date Time Temp Pulse Resp B/P (MAP) Pulse Ox O2 Delivery O2 Flow Rate FiO2 07/07/17 16:07 37.3 84 18 111/64 (80) 94 Room Air 07/07/17 15:10 Room Air Physical Exam: General- no acute distress Lungs- clear Cardiovascular- RRR; no gallop; no JVD; no pretibial edema Abdomen- + BS, soft, nontender Extremities- no cyanosis; right shoulder bandaged Neuro- alert Skin- warm & dry . 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 Presented with recurrent fevers and worsening shoulder pain. US and CT demonstrated fluid collection, seroma vs abscess. Ortho and ID consulted. Blood cultures obtained. Started on empiric antibiotic coverage with daptomycin and piperacillin / tazobactam. I&D performed 07/05; found to have gross pus. Vancomycin + gentamicin beads placed. Wound culture growing MRSA. Continue daptomycin and piperacillin / tazobactam pending final culture results. Continue analgesics. VTE PROPHYLAXIS SCD's ordered. DISPOSITION Expected discharge to home, most likely with outpatient IV antibiotic therapy. Orthopedics follow-up with Dr. Byrd. ID follow-up with Drs. Lawson and Lynn. . Current Inpatient Medications: Current Inpatient Medications Medications (Trade) Dose Ordered Sig/Diane Route Start Time Stop Time Status Last Admin Dose Admin Ondansetron HCl (Zofran Inj) 4 mg Q6H PRN IV 07/04/17 02:30 08/03/17 02:29 07/07/17 00:41 4 MG Acetaminophen (Tylenol Tab) 650 mg Q4H PRN PO 07/04/17 02:30 08/03/17 02:29 Senna (Senokot Tab) 8.6 mg QAM PO 07/04/17 09:00 08/03/17 08:59 Docusate Sodium (coLACE CAP) 100 mg BID PO 07/04/17 09:00 08/03/17 08:59 Diphenhydramine HCl (Benadryl Inj) 12.5 mg Q6 PRN IV 07/04/17 02:30 08/03/17 02:29 07/07/17 14:05 12.5 MG Piperacillin Sod/ Tazobactam Sod 3.375 gm/Dextrose 115 ml @ 28 mls/hr Q8H IV 07/04/17 04:00 07/14/17 03:59 07/07/17 12:25 28 MLS/HR Ketorolac Tromethamine (Toradol Inj) 15 mg Q6H PRN IV. 07/04/17 07:00 07/09/17 06:44 07/07/17 07:50 15 MG Piperacillin Sod/ Tazobactam Sod (Consult) 1 ea UD PRN N/A 07/04/17 11:45 08/03/17 11:44 Oxycodone HCl (Roxicodone Immediate Rel Tab) 10 mg Q6H PRN PO 07/04/17 17:30 07/18/17 17:29 07/07/17 18:23 10 MG Daptomycin 400 mg/ Syringe 8 ml @ 4 mls/min DAILY@0600 IV 07/05/17 06:00 07/15/17 05:59 07/07/17 05:50 4 MLS/MIN Heparin Sodium (Porcine) (Heparin 10 Unit/ ml 5 ml Flush) 5 ml PRN PRN FLUSH 07/05/17 11:15 08/04/17 11:14 07/07/17 17:03 5 ML
[2017-07-07 22:58] VITALS: BP 144/82; PULSE 77; TEMP 37.4; O2SAT 95
[2017-07-08] MEDS: OXYCODONE HCL IR 5 MG TAB (IMMEDIATE RELEASE) PO PRN ×3 (00:40→21:21)
[2017-07-08] MEDS: DiphenhydrAMINE HCL 50 MG/ML VIAL IV PRN ×4 (04:09→23:54)
[2017-07-08] MEDS: PIPERACILL/TAZOBAC IV 3.375 GM in DEXTROSE 5% 100ML 100 ML IV SCH ×3 (04:09→21:21)
[2017-07-08] MEDS: KETOROLAC TROMETHAMINE 15 MG/ML VIAL IV. PRN ×3 (04:09→23:54)
[2017-07-08] MEDS: DAPTOmycin IV 400 MG in SYRINGE 0 ML IV SCH (05:50)
[2017-07-08 07:31] VITALS: BP 97/65; PULSE 81; TEMP 36.9; O2SAT 95
--- NOTE | 2017-07-08 08:01 | Orthopedic Progress Note ---
Orthopedic Progress Note Date of Service Jul 08, 2017. Subjective Post OP Day: 3 Reports: feeling well, pain controlled w PO medications, Denies: complaints, chest pain, SOB, nausea / vomiting, light headedness, calf pain Objective calves soft nontender, N/V intact, capillary refill less than 2 sec., incision C /D/I, A&O x3, toes mobile, hemovac drainage (5ml pulled today) Incision is clean, dry and intact. Dressing change was performed today. Drain was pulled today as there was only 5ml of drainage. New dressing with adaptic, 4x4 and tape. Date Time Temp Pulse Resp B/P (MAP) Pulse Ox O2 Delivery O2 Flow Rate FiO2 07/08/17 07:31 36.9 81 16 97/65 (76) 95 Room Air 07/07/17 22:58 37.4 77 16 144/82 (102) 95 Room Air 07/07/17 16:07 37.3 84 18 111/64 (80) 94 Room Air 07/07/17 15:10 Room Air 07/07/17 08:28 Room Air Assessment & Plan Assessment: POD 3 s/p I&D Right superficial abscess with implantation of antibiotic beads Plan: IV antibx as per ID Team Cultures came back MRSA Dressing change performed today with adaptic, 4x4, and tape Drain was pulled today due to minimal drainage. Awaiting final antibiotic recommendations.
[2017-07-08] MEDS: DOCUSATE SODIUM 100 MG CAP PO SCH ×2 (08:31→21:00)
[2017-07-08] MEDS: SENNA 8.6 MG TAB PO SCH (08:31)
[2017-07-08 15:31] VITALS: BP 143/82; PULSE 88; TEMP 37.1; O2SAT 94
--- NOTE | 2017-07-08 19:16 | Progress Note ---
Medicine Progress Note Date & Time of Visit: Jul 08, 2017 at 18:15 . Subjective CC: Follow-up visit for abscess right shoulder. HPI: Afebrile. No nausea, vomiting, diarrhea. Postop pain improved. ROS: as noted above in HPI . Objective Last 8 Hrs Date Time Temp Pulse Resp B/P (MAP) Pulse Ox O2 Delivery O2 Flow Rate FiO2 07/08/17 15:31 37.1 88 18 143/82 (102) 94 Room Air Physical Exam: General- no acute distress Lungs- clear Cardiovascular- RRR; no JVD; no pretibial edema Abdomen- + BS, soft, nontender Extremities- no cyanosis; right shoulder bandaged Neuro- alert Skin- warm & dry . 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 Presented with recurrent fevers and worsening shoulder pain. US and CT demonstrate fluid collection, seroma vs abscess. Ortho and ID consulted. Blood culture obtained. Started on empiric antibiotic coverage with daptomycin and piperacillin / tazobactam. I&D performed 07/05; found to have gross pus. Vancomycin + gentamicin beads placed. Wound culture growing MRSA. Continue daptomycin and piperacillin / tazobactam pending final culture results. Continue analgesics. VTE PROPHYLAXIS SCD's ordered. DISPOSITION Expected discharge to home with outpatient IV antibiotic therapy. Orthopedics follow-up with Dr. Byrd. ID follow-up with Drs. Lawson and Lynn. . Current Inpatient Medications: Current Inpatient Medications Medications (Trade) Dose Ordered Sig/Diane Route Start Time Stop Time Status Last Admin Dose Admin Ondansetron HCl (Zofran Inj) 4 mg Q6H PRN IV 07/04/17 02:30 08/03/17 02:29 07/07/17 00:41 4 MG Acetaminophen (Tylenol Tab) 650 mg Q4H PRN PO 07/04/17 02:30 08/03/17 02:29 Senna (Senokot Tab) 8.6 mg QAM PO 07/04/17 09:00 08/03/17 08:59 Docusate Sodium (coLACE CAP) 100 mg BID PO 07/04/17 09:00 08/03/17 08:59 Diphenhydramine HCl (Benadryl Inj) 12.5 mg Q6 PRN IV 07/04/17 02:30 08/03/17 02:29 07/08/17 17:42 12.5 MG Piperacillin Sod/ Tazobactam Sod 3.375 gm/Dextrose 115 ml @ 28 mls/hr Q8H IV 07/04/17 04:00 07/14/17 03:59 07/08/17 12:44 28 MLS/HR Ketorolac Tromethamine (Toradol Inj) 15 mg Q6H PRN IV. 07/04/17 07:00 07/09/17 06:44 07/08/17 17:42 15 MG Piperacillin Sod/ Tazobactam Sod (Consult) 1 ea UD PRN N/A 07/04/17 11:45 08/03/17 11:44 Oxycodone HCl (Roxicodone Immediate Rel Tab) 10 mg Q6H PRN PO 07/04/17 17:30 07/18/17 17:29 07/08/17 11:20 10 MG Daptomycin 400 mg/ Syringe 8 ml @ 4 mls/min DAILY@0600 IV 07/05/17 06:00 07/15/17 05:59 07/08/17 05:50 4 MLS/MIN Heparin Sodium (Porcine) (Heparin 100 Unit/ml 5ml Flush) 5 ml PRN PRN IV 07/08/17 18:00 08/07/17 17:59
[2017-07-08 23:15] VITALS: BP 141/90; PULSE 88; TEMP 37.2; O2SAT 94
[2017-07-09] MEDS: PIPERACILL/TAZOBAC IV 3.375 GM in DEXTROSE 5% 100ML 100 ML IV SCH (04:04)
[2017-07-09] MEDS: DAPTOmycin IV 400 MG in SYRINGE 0 ML IV SCH (05:47)
[2017-07-09] MEDS: DiphenhydrAMINE HCL 50 MG/ML VIAL IV PRN ×3 (06:41→19:23)
[2017-07-09] MEDS: KETOROLAC TROMETHAMINE 15 MG/ML VIAL IV. PRN (06:42)
[2017-07-09 07:06] VITALS: BP 106/66; PULSE 73; TEMP 37; O2SAT 94
[2017-07-09 08:13] LABS: HEMATOCRIT 37.2 % (42-52); HEMOGLOBIN 12.3 g/dL (14.0-18.0); MEAN CELL VOLUME 81.9 fL (80-100); MEAN CORPUSCULAR HEMOGLOBIN 27.1 pg (25-34); MEAN CORPUSCULAR HGB CONC 33.1 g/dl (32-36); MEAN PLATELET VOLUME 9.4 fL (7.4-10.4); PLATELET COUNT 265 K/uL (130-400); RED CELL DISTRIBUTION WIDTH SD 44.6 fL (36.4-46.3); WHITE BLOOD COUNT 9.13 K/uL (4.8-10.8)
[2017-07-09] MEDS: DOCUSATE SODIUM 100 MG CAP PO SCH ×2 (08:15→21:00)
[2017-07-09] MEDS: SENNA 8.6 MG TAB PO SCH (08:17)
--- NOTE | 2017-07-09 10:52 | Progress Note ---
Subjective Date of Service: Jul 09, 2017. Subjective Pt evaluation today including: conversation w/ patient, physical exam, chart review, lab review pt seen in followup, doing well. some soreness in shoulder, but overall improved and pain controlled. tolerating abx, no f/c. no drainage from wound. no n/v/d/abd pain. all remaining ros reviewed and are negative. wound culture with MRSA, blood cultures negative and final. Problem List Medical Problems: (1) Abscess of right arm Status: Acute (2) Abscess of right shoulder Status: Acute (3) Cellulitis of shoulder Status: Acute (4) Cellulitis of shoulder Status: Acute (5) Fever Status: Acute (6) Hypokalemia Status: Acute (7) Hypotension Status: Acute (8) Infection of shoulder Status: Acute (9) Right arm cellulitis Status: Acute (10) Sepsis Status: Acute (11) Sepsis Status: Acute (12) Sepsis Status: Acute (13) Septic arthritis of shoulder, right Status: Acute (14) Septic joint of right shoulder region Status: Acute (15) Shoulder pain Status: Acute Objective Vital Signs Date Time Temp Pulse Resp B/P (MAP) Pulse Ox O2 Delivery O2 Flow Rate FiO2 07/09/17 08:15 Room Air 07/09/17 07:06 37.0 73 16 106/66 (79) 94 Room Air 07/08/17 23:55 Room Air 07/08/17 23:15 37.2 88 18 141/90 (107) 94 Room Air 07/08/17 16:30 Room Air 07/08/17 15:31 37.1 88 18 143/82 (102) 94 Room Air Physical Exam General Appearance: WD/WN, no apparent distress Eyes: normal inspection, EOMI Neck: supple Respiratory/Chest: lungs clear, no respiratory distress Cardiovascular: regular rate, rhythm, no edema Abdomen: non tender Extremities: non-tender, no pedal edema Neurologic/Psychiatric: alert, oriented x 3 Skin: normal color Comments: dressing c/d/i Laboratory Results Item Value Date Time Gram Stain - Final Resulted 07/05/17 1600 Tissue Shoulder, Right Blood Culture - Final Complete 07/03/17 2300 Blood NO GROWTH Blood Culture - Final Complete 07/03/17 2250 Blood NO GROWTH Last 24 Hours Test 07/09/17 07:46 White Blood Count 9.13 K/uL Red Blood Count 4.54 M/uL Hemoglobin 12.3 g/dL Hematocrit 37.2 % Mean Corpuscular Volume 81.9 fL Mean Corpuscular Hemoglobin 27.1 pg Mean Corpuscular Hemoglobin Concent 33.1 g/dl RDW Standard Deviation 44.6 fL RDW Coefficient of Variation 15.0 % Platelet Count 265 K/uL Mean Platelet Volume 9.4 fL C-Reactive Protein 2.57 mg/dl Assessment and Plan (1) Abscess of right shoulder Assessment & Plan: will continue dapto, will need 6 weeks min. will need weekly cmp,cbc, esr while on abx. will stop zosyn. awaiting insurance approval for abx.
--- NOTE | 2017-07-09 12:50 | Orthopedic Progress Note ---
Orthopedic Progress Note Date of Service Jul 09, 2017. Subjective Post OP Day: 4 Reports: feeling well, pain controlled w PO medications, Denies: complaints, chest pain, SOB, nausea / vomiting, light headedness, calf pain Objective N/V intact, capillary refill less than 2 sec., A&O x3 Right shoulder incision with some purulent drainage. Dressings changed by me. Sutures in tact, no erythema, skin edges approximated well. Date Time Temp Pulse Resp B/P (MAP) Pulse Ox O2 Delivery O2 Flow Rate FiO2 07/09/17 08:15 Room Air 07/09/17 07:06 37.0 73 16 106/66 (79) 94 Room Air 07/08/17 23:55 Room Air 07/08/17 23:15 37.2 88 18 141/90 (107) 94 Room Air 07/08/17 16:30 Room Air 07/08/17 15:31 37.1 88 18 143/82 (102) 94 Room Air Laboratory Results 24 Hours: Test 07/09/17 07:46 Hematocrit 37.2 % Hemoglobin 12.3 g/dL Assessment & Plan Assessment: POD 4 s/p I&D Right superficial abscess with implantation of antibiotic beads Plan: IV antibx as per ID Team- IV Daptomycin recommended for at least 6 wks Cultures came back MRSA Ortho will sign off, please contact if any concerns develop.
--- NOTE | 2017-07-09 12:55 | Consultant Recommendations ---
Sales And Catering Coordinator Recommendations Date of Service Jul 09, 2017. Sales And Catering Coordinator Recommendations S/p Right shoulder I&D superficial infection w placement of antibx beads. Motion as tolerated with strict wound care and sterile dressing changes right shoulder. IV anti per infectious disease and follow with them. Follow up with Dr. Byrd This Sunday07/13/17, call [phone] for appt.
[2017-07-09] MEDS: OXYCODONE HCL IR 5 MG TAB (IMMEDIATE RELEASE) PO PRN ×2 (13:21→19:23)
[2017-07-09 15:16] VITALS: BP 105/74; PULSE 82; TEMP 36.9; O2SAT 94
[2017-07-09] MEDS ORDERED: HYDROmorphone INJ 0.5 MG/0.5 ML SYR IV STA (15:16)
--- NOTE | 2017-07-09 15:27 | Progress Note ---
Orthopedic SOAP Note Subjective Date of Service: Jul 09, 2017. Additional Notes: some pain Problem List Medical Problems: (1) Abscess of right arm Status: Acute (2) Abscess of right shoulder Status: Acute (3) Cellulitis of shoulder Status: Acute (4) Cellulitis of shoulder Status: Acute (5) Fever Status: Acute (6) Hypokalemia Status: Acute (7) Hypotension Status: Acute (8) Infection of shoulder Status: Acute (9) Right arm cellulitis Status: Acute (10) Sepsis Status: Acute (11) Sepsis Status: Acute (12) Sepsis Status: Acute (13) Septic arthritis of shoulder, right Status: Acute (14) Septic joint of right shoulder region Status: Acute (15) Shoulder pain Status: Acute Objective some drainage lower incision and a few beads coming out of incision,erythema decreased Date Time Temp Pulse Resp B/P (MAP) Pulse Ox O2 Delivery O2 Flow Rate FiO2 07/09/17 15:16 36.9 82 18 105/74 (84) 94 Room Air 07/09/17 08:15 Room Air 07/09/17 07:06 37.0 73 16 106/66 (79) 94 Room Air 07/08/17 23:55 Room Air 07/08/17 23:15 37.2 88 18 141/90 (107) 94 Room Air 07/08/17 16:30 Room Air 07/08/17 15:31 37.1 88 18 143/82 (102) 94 Room Air Laboratory Results 24 Hours: Test 07/09/17 07:46 Hematocrit 37.2 % Hemoglobin 12.3 g/dL Assessment POD 4 s/p I&D Right superficial abscess with implantation of antibiotic beads Plan IV antibx as per ID Team- IV Daptomycin recommended for at least 6 wks Cultures came back MRSA I expressed some fluid out of lower incision and some beads ,would expect some continued drainage because of beads and do dressing changes as needed q shift or daily.sutures to stay in place 2-3 weeks . not recommending repeat i/d as has antibiotic beads in place which should cover mrsa as adjunct to iv abx.
--- NOTE | 2017-07-09 20:31 | Progress Note ---
Medicine Progress Note Date & Time of Visit: Jul 09, 2017 at 17:30 . Subjective CC: Follow-up visit for abscess right shoulder. HPI: No fever, chills. No nausea, vomiting, diarrhea. Has some drainage from shoulder incision. Postop pain improved. ROS: as noted above in HPI . Objective Last 8 Hrs Date Time Temp Pulse Resp B/P (MAP) Pulse Ox O2 Delivery O2 Flow Rate FiO2 07/09/17 15:31 Room Air 07/09/17 15:16 36.9 82 18 105/74 (84) 94 Room Air Physical Exam: General- lying in bed, no acute distress Lungs- clear Cardiovascular- RRR; no JVD; no pretibial edema Abdomen- + BS, soft, nontender Extremities- no cyanosis; no calf tenderness; right shoulder bandaged Neuro- alert Skin- warm & dry . 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 Presented with recurrent fevers and worsening shoulder pain. US and CT demonstrate fluid collection, seroma vs abscess. Ortho and ID consulted. Blood culture obtained. Started on empiric antibiotic coverage with daptomycin and piperacillin / tazobactam. I&D performed 07/05; found to have gross pus. Vancomycin + gentamicin beads placed. Wound culture growing MRSA. Piperacillin / tazobactam discontinued. Continue daptomycin x at least 6 wks per ID. Continue analgesics. VTE PROPHYLAXIS Patient very low risk for VTE per IMPROVE VTE Associative Risk Model. VTE prophylaxis not indicated. DISPOSITION Expected discharge to home with outpatient IV antibiotic therapy. Orthopedics follow-up with Dr. Byrd. ID follow-up with Drs. Lawson and Lynn. . Consultants: Ortho ID . Procedures: US upper extremity CT upper extremity I&D right deltoid abscess performed by Dr. Byrd 07/05/17 . Current Inpatient Medications: Current Inpatient Medications Medications (Trade) Dose Ordered Sig/Diane Route Start Time Stop Time Status Last Admin Dose Admin Ondansetron HCl (Zofran Inj) 4 mg Q6H PRN IV 07/04/17 02:30 08/03/17 02:29 07/07/17 00:41 4 MG Acetaminophen (Tylenol Tab) 650 mg Q4H PRN PO 07/04/17 02:30 08/03/17 02:29 Senna (Senokot Tab) 8.6 mg QAM PO 07/04/17 09:00 08/03/17 08:59 Docusate Sodium (coLACE CAP) 100 mg BID PO 07/04/17 09:00 08/03/17 08:59 Diphenhydramine HCl (Benadryl Inj) 12.5 mg Q6 PRN IV 07/04/17 02:30 08/03/17 02:29 07/09/17 19:23 12.5 MG Oxycodone HCl (Roxicodone Immediate Rel Tab) 10 mg Q6H PRN PO 07/04/17 17:30 07/18/17 17:29 07/09/17 19:23 10 MG Daptomycin 400 mg/ Syringe 8 ml @ 4 mls/min DAILY@0600 IV 07/05/17 06:00 07/15/17 05:59 07/09/17 05:47 4 MLS/MIN Heparin Sodium (Porcine) (Heparin 100 Unit/ml 5ml Flush) 5 ml PRN PRN IV 07/08/17 18:00 08/07/17 17:59 07/09/17 19:23 5 ML
[2017-07-09 23:02] VITALS: BP 114/80; PULSE 82; TEMP 37.1; O2SAT 94
[2017-07-10] MEDS: DiphenhydrAMINE HCL 50 MG/ML VIAL IV PRN ×4 (01:33→21:53)
[2017-07-10] MEDS: OXYCODONE HCL IR 5 MG TAB (IMMEDIATE RELEASE) PO PRN ×4 (01:34→21:53)
[2017-07-10] MEDS: DAPTOmycin IV 400 MG in SYRINGE 0 ML IV SCH (05:44)
[2017-07-10 07:39] VITALS: BP 110/71; PULSE 82; TEMP 36.9; O2SAT 93
[2017-07-10] MEDS: SENNA 8.6 MG TAB PO SCH (09:00)
[2017-07-10] MEDS: DOCUSATE SODIUM 100 MG CAP PO SCH ×2 (09:00→20:54)
[2017-07-10] MEDS ORDERED: DAPT500I IV (12:31)
[2017-07-10 15:30] VITALS: BP 121/74; PULSE 90; TEMP 37.1; O2SAT 98
--- NOTE | 2017-07-10 21:02 | Progress Note ---
Medicine Progress Note Date & Time of Visit: Jul 10, 2017 at 17:50 . Subjective CC: Follow-up visit for abscess right shoulder. HPI: No fever, chills. No nausea, vomiting, diarrhea. Has some drainage from shoulder incision. Tolerable postop pain; oxycodone helps. ROS: as noted above in HPI . Objective Last 8 Hrs Date Time Temp Pulse Resp B/P (MAP) Pulse Ox O2 Delivery O2 Flow Rate FiO2 07/10/17 15:30 Room Air 07/10/17 15:30 37.1 90 18 121/74 (90) 98 Room Air Physical Exam: General- lying in bed, no acute distress Lungs- clear Cardiovascular- RRR; no JVD; no pretibial edema Abdomen- + BS, soft, nontender Extremities- no cyanosis; no calf tenderness; right shoulder bandaged Neuro- alert Skin- warm & dry . 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 Presented with recurrent fevers and worsening shoulder pain. US and CT demonstrate fluid collection, seroma vs abscess. Ortho and ID consulted. Blood culture obtained. Started on empiric antibiotic coverage with daptomycin and piperacillin / tazobactam. I&D performed 07/05; found to have gross pus. Vancomycin + gentamicin beads placed. Wound culture growing MRSA. Piperacillin / tazobactam discontinued. Continue daptomycin x at least 6 wks per ID. Continue analgesics. VTE PROPHYLAXIS Patient very low risk for VTE per IMPROVE VTE Associative Risk Model. VTE prophylaxis not indicated. DISPOSITION Expected discharge to home with outpatient IV antibiotic therapy. Orthopedics follow-up with Dr. Byrd. ID follow-up with Drs. Lawson and Lynn. . Consultants: Ortho ID . Procedures: US upper extremity CT upper extremity I&D right deltoid abscess performed by Dr. Byrd 07/05/17 . Current Inpatient Medications: Current Inpatient Medications Medications (Trade) Dose Ordered Sig/Diane Route Start Time Stop Time Status Last Admin Dose Admin Ondansetron HCl (Zofran Inj) 4 mg Q6H PRN IV 07/04/17 02:30 08/03/17 02:29 07/07/17 00:41 4 MG Acetaminophen (Tylenol Tab) 650 mg Q4H PRN PO 07/04/17 02:30 08/03/17 02:29 Senna (Senokot Tab) 8.6 mg QAM PO 07/04/17 09:00 08/03/17 08:59 Docusate Sodium (coLACE CAP) 100 mg BID PO 07/04/17 09:00 08/03/17 08:59 Diphenhydramine HCl (Benadryl Inj) 12.5 mg Q6 PRN IV 07/04/17 02:30 08/03/17 02:29 07/10/17 15:37 12.5 MG Oxycodone HCl (Roxicodone Immediate Rel Tab) 10 mg Q6H PRN PO 07/04/17 17:30 07/18/17 17:29 07/10/17 15:39 10 MG Daptomycin 400 mg/ Syringe 8 ml @ 4 mls/min DAILY@0600 IV 07/05/17 06:00 07/15/17 05:59 07/10/17 05:44 4 MLS/MIN Heparin Sodium (Porcine) (Heparin 100 Unit/ml 5ml Flush) 5 ml PRN PRN IV 07/08/17 18:00 08/07/17 17:59 07/10/17 15:38 5 ML
[2017-07-10 23:00] VITALS: BP 130/80; PULSE 96; TEMP 37.2; O2SAT 93
[2017-07-11] MEDS: DiphenhydrAMINE HCL 50 MG/ML VIAL IV PRN (04:00)
[2017-07-11] MEDS: OXYCODONE HCL IR 5 MG TAB (IMMEDIATE RELEASE) PO PRN ×3 (04:01→17:25)
[2017-07-11] MEDS: DAPTOmycin IV 400 MG in SYRINGE 0 ML IV SCH (05:32)
[2017-07-11 07:41] VITALS: BP 96/68; PULSE 79; TEMP 37.2; O2SAT 94
[2017-07-11] MEDS: SENNA 8.6 MG TAB PO SCH (08:44)
[2017-07-11] MEDS: DOCUSATE SODIUM 100 MG CAP PO SCH (08:44)
--- NOTE | 2017-07-11 13:04 | Progress Note ---
Medicine Progress Note Date & Time of Visit: Jul 11, 2017 at 13:04. Objective Last 8 Hrs Date Time Temp Pulse Resp B/P (MAP) Pulse Ox O2 Delivery O2 Flow Rate FiO2 07/11/17 08:03 Room Air 07/11/17 07:41 37.2 79 16 96/68 (77) 94 Room Air Physical Exam: General- lying in bed, no acute distress Lungs- clear Cardiovascular- RRR; no JVD; no pretibial edema Abdomen- + BS, soft, nontender Extremities- no cyanosis; no calf tenderness; right shoulder bandaged Neuro- alert Skin- warm & dry . 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 Presented with recurrent fevers and worsening shoulder pain. US and CT demonstrate fluid collection, seroma vs abscess. Ortho and ID consulted. Blood culture obtained. Started on empiric antibiotic coverage with daptomycin and piperacillin / tazobactam. I&D performed 07/05; found to have gross pus. Vancomycin + gentamicin beads placed. Wound culture growing MRSA. Piperacillin / tazobactam discontinued. Continue daptomycin x at least 6 wks per ID. Continue analgesics. VTE PROPHYLAXIS Patient very low risk for VTE per IMPROVE VTE Associative Risk Model. VTE prophylaxis not indicated. DISPOSITION Expected discharge to home with outpatient IV antibiotic therapy. Orthopedics follow-up with Dr. Byrd. ID follow-up with Drs. Lawson and Lynn. . Consultants: Ortho ID . Procedures: US upper extremity CT upper extremity I&D right deltoid abscess performed by Dr. Byrd 07/05/17 . Current Inpatient Medications: Current Inpatient Medications Medications (Trade) Dose Ordered Sig/Diane Route Start Time Stop Time Status Last Admin Dose Admin Ondansetron HCl (Zofran Inj) 4 mg Q6H PRN IV 07/04/17 02:30 08/03/17 02:29 07/07/17 00:41 4 MG Acetaminophen (Tylenol Tab) 650 mg Q4H PRN PO 07/04/17 02:30 08/03/17 02:29 Senna (Senokot Tab) 8.6 mg QAM PO 07/04/17 09:00 08/03/17 08:59 Docusate Sodium (coLACE CAP) 100 mg BID PO 07/04/17 09:00 08/03/17 08:59 Diphenhydramine HCl (Benadryl Inj) 12.5 mg Q6 PRN IV 07/04/17 02:30 08/03/17 02:29 07/11/17 04:00 12.5 MG Oxycodone HCl (Roxicodone Immediate Rel Tab) 10 mg Q6H PRN PO 07/04/17 17:30 07/18/17 17:29 07/11/17 10:31 10 MG Daptomycin 400 mg/ Syringe 8 ml @ 4 mls/min DAILY@0600 IV 07/05/17 06:00 07/15/17 05:59 07/11/17 05:32 4 MLS/MIN Heparin Sodium (Porcine) (Heparin 100 Unit/ml 5ml Flush) 5 ml PRN PRN IV 07/08/17 18:00 08/07/17 17:59 07/11/17 05:32 5 ML
[2017-07-11] MEDS ORDERED: RXC5 PO (13:25)
--- NOTE | 2017-07-11 13:39 | Discharge Instructions ---
Discharge Instructions Date of Service Jul 11, 2017. Admission Reason for Admission: painful right shoulder . Discharge Discharge Diagnosis / Problem: abscess right shoulder with MRSA Discharge Goals Goal(s): Decrease discomfort, Improve disease control Activity Recommendations Activity Limitations: resume your previous activity . Instructions / Follow-Up Instructions / Follow-Up APPOINTMENTS: ORTHOPEDICS Dr. Byrd 07/13/17 Please call office for appointment. INFECTIOUS DISEASE Dr. Bailey or Dr. Lawson Please call office for appointment. OTHER INSTRUCTIONS: Keep shoulder incision clean and dry. Do not shower unless you are certain that you can keep incision dry. Sterile dressing to cover right shoulder incision. Change daily or more often if necessary. Prescription sent to [facility] for oxycodone immediate release tablets 5 mg. Take 2 pills every 6 hours as needed for severe pain. Don't take more than necessary. Try to taper down as postoperative pain improves. May cause drowsiness. Do not drive after taking. May cause constipation. May take docusate sodium (Colace) 100 mg twice a day as needed. Seek medical attention if you have: * temperature above 101 * chest pain or trouble breathing * abdominal pain, nausea, vomiting * diarrhea, dark stools or bloody stools * worsening pain, redness, swelling, drainage right shoulder * any unanswered questions or concerns Call 911 if symptoms are severe. Call if you have any questions or problems. You can reach a [facility] hospitalist on duty at [facility] 24 hours a day by calling [phone]. Please take good care of yourself. Felipe Clark . Current Hospital Diet Patient's current hospital diet: AHA Diet (Heart Healthy) Discharge Diet Recommended Diet: Regular Diet Procedures Procedures Performed: Right Shoulder Incision Drainage of Right Shoulder Abcess with placement Stimulan Beads and drains Pending Studies Studies pending at discharge: yes List of pending studies: Labs should be drawn weekly by Home Health while you are receiving daptomycin. Results should be sent to Dr. Lawson and Dr. Bailey. complete metabolic profile, complete bood count, erythrocyte sedimentation rate Medical Emergencies . Who to Call and When: Medical Emergencies: If at any time you feel your situation is an emergency, please call 911 immediately. . Non-Emergent Contact Non-Emergency issues call your: Primary Care Provider, Hospital Doctor, Surgeon (Orthopedics) . . "Provider Documentation" section prepared by Felipe Clark. . Safety Trainer Recommendations Safety Trainer Recommendations: S/p Right shoulder I&D superficial infection w placement of antibx beads. Motion as tolerated with strict wound care and sterile dressing changes right shoulder. IV anti per infectious disease and follow with them. Follow up with Dr. Byrd This Sunday07/13/17, call [phone] for appt. VTE Core Measure Inpt VTE Proph given/why not?: Treatment not indicated
[2017-07-11 13:54] VITALS: BP 96/68; PULSE 79; TEMP 37.2; O2SAT 94
[2017-07-11 15:22] VITALS: BP 129/76; PULSE 76; TEMP 36.9; O2SAT 95
== END 2017-07-11 18:00 | disposition home or self-care (01) | DRG 581 ==
LOC: C.EDB 20:29 → C.MSW 07-04 02:23 → ENRESERV 07-04 02:43
PROVIDERS: ADMIT Hospitalist; ATTEND Hospitalist
PROC: 0J9D0ZZ Drainage of Right Upper Arm Subcutaneous Tissue and Fascia, Open Approach (ICD-10-PCS; principal; 2017-07-05 08:30)
DX: L02.413 Cutaneous abscess of right upper limb (principal); E87.6 Hypokalemia; R50.9 Fever, unspecified; A49.01 Methicillin susceptible Staphylococcus aureus infection, unspecified site; Z87.442 Personal history of urinary calculi; Z86.14 Personal history of Methicillin resistant Staphylococcus aureus infection; Z80.9 Family history of malignant neoplasm, unspecified; Z82.49 Family history of ischemic heart disease and other diseases of the circulatory system; Z83.3 Family history of diabetes mellitus

== ENCOUNTER 2017-09-15 00:59 | Inpatient (IN) | payer OTHER ==
[~2017-09-15] VITALS: Ht 175.3 cm; Wt 99.1 kg
[~2017-09-15 00:59] MED LIST changes: +DAPT500I IV; -DFL100 PO; -MTR800 PO; -NRN600 PO; -OXYC-164 PO; -OXYC-292 PO; -PRT40 PO; +RXC5 PO
[2017-09-15] MEDS ORDERED: SODIUM CHLORIDE 0.9% 1000ML 1,000 ML IV STA ×3 (01:28→04:09)
[2017-09-15 01:34] LABS: BASO % 0.2 %; BASO ABS # 0.02 K/uL (0-0.2); EOS % 0.5 %; EOS ABS # 0.06 K/uL (0-0.5); HEMATOCRIT 47.8 % (42-52); HEMOGLOBIN 16.3 g/dL (14.0-18.0); IG# 0.06 K/uL (0.00-0.02); LYMPH % 4.2 %; LYMPH ABS # 0.54 K/uL (1.2-3.4); MEAN CELL VOLUME 82.7 fL (80-100); MEAN CORPUSCULAR HEMOGLOBIN 28.2 pg (25-34); MEAN CORPUSCULAR HGB CONC 34.1 g/dl (32-36); MEAN PLATELET VOLUME 10.2 fL (7.4-10.4); MONO % 1.7 %; MONO ABS # 0.22 K/uL (0.11-0.59); NEUT % 92.9 %; PLATELET COUNT 228 K/uL (130-400); RED CELL DISTRIBUTION WIDTH CV 14.7 % (11.5-14.5); RED CELL DISTRIBUTION WIDTH SD 44.4 fL (36.4-46.3)
[2017-09-15 01:55] LABS: ALBUMIN 3.9 gm/dl (3.4-5.0); CALCIUM 8.9 mg/dl (8.5-10.1); CREATININE 1.55 mg/dl (0.60-1.40); POTASSIUM 3.5 mmol/L (3.5-5.1)
[2017-09-15 01:57] LABS: TOTAL PROTEIN 8.6 gm/dl (6.4-8.2)
[2017-09-15] MEDS ORDERED: ONDANSETRON INJ 2 MG/ML 2 ML VIAL IV STA ×2 (02:01→05:05)
[2017-09-15] MEDS: HYDROmorphone INJ 1 MG/ML SYR IV PRN ×2 (02:15→03:23)
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
[2017-09-15 02:33] LABS: INFLUENZA B ANTIGEN Neg for Influ B (NEG)
[2017-09-15] MEDS ORDERED: ACETAMINOPHEN 500 MG TAB PO STA (03:06)
[2017-09-15] MEDS ORDERED: CEFEPIME IV 1,000 MG in DEXTROSE 5% 100ML 100 ML IV STA (04:06)
[2017-09-15] MEDS ORDERED: VANCOMYCIN 1GM ED/ASU OMNICELL IV STA (04:06)
[2017-09-15] MEDS ORDERED: HYDROmorphone INJ 1 MG/ML SYR IV STA (05:05)
[2017-09-15] MEDS ORDERED: PANTOprazole INJ 40 MG in SYRINGE 0 ML IV ONE ×2 (05:15→09:30)
--- NOTE | 2017-09-15 05:56 | DIAGNOSTIC IMAGING REPORT ---
ABD/PELVIS NO IV OR ORAL CONT CT DOSE: 1004.88 mGy.cm HISTORY: Pain. Nausea. n/v, s/p rectal surgery TECHNIQUE: Multiaxial CT images of the abdomen and pelvis were performed without contrast. A dose lowering technique was utilized adhering to the principles of ALARA. COMPARISON STUDY: 12/22/2016 FINDINGS: Lung bases are clear. Liver spleen and pancreas are unremarkable. The spleen remains slightly prominent which is unchanged from prior study. Bilateral nonobstructing nephrocalcinosis. This is similar compared to the prior study. The bowel pattern within the abdomen is nonobstructive. No evidence for abscess collection or obstruction. No evidence for pneumatosis or free air. Normal appendix. Bladder is midline. No free fluid within the pelvic cul-de-sac. IMPRESSION: 1. Bilateral stable nonobstructing nephrocalcinosis. 2. Stable borderline splenomegaly. 3. Otherwise negative study. The above report was generated using voice recognition software. It may contain grammatical, syntax or spelling errors. Electronically signed by: Natanael Wilson M.D. 09/15/2017 5:54 AM Dictated Date/Time: 09/15/2017 5:51 AM
[2017-09-15] MEDS ORDERED: VANCOMYCIN CONSULT ACTIVE PRN (06:15)
--- NOTE | 2017-09-15 06:19 | History and Physical ---
History & Physical Date & Time of Service: Sep 15, 2017 at 06:17 Chief Complaint: Infection Primary Care Physician: No Doctor, Assigned History of Present Illness This is a 41 year old M with recurrent right shoulder infections and multiple right shoulder surgeries who last admitted to [facility] in June 2017 with right shoulder abscess that had incision drainage by orthopedics with vancomycin and gentamicin beads placed and subsequent would cultures of grew MRSA and patient subsequently discharged on daptomycin IV through his chest port line Since that discharge patient has continued to follow with Dr. Byrd of orthopedics and Dr. Bailey from infectious disease service. Patient reports that he has been off daptomycin and has been on an oral antibiotic that starts with the letter B (possibly Bactrim???) Patient also seeing surgical physician at [facility] for anal fistula which required some cleaning procedure 2 to 3 weeks ago. Patient's acute symptoms of fever began at the night time on 09/14/17. On arrival to ED was febrile 39.4 C (102.9 F), tachycardic, with leukocytosis of 12 ,000 and meeting criteria for sepsis, lactic acid 2.3. ED physician started patient on IV fluids and had peripheral blood culture and blood culture from chest port line. Patient also have acute right shoulder pain with the septic symptoms. Also reports left flank pain. Patient had CT scan of right shoulder that did not find evidence for abscess. CT abdomen showed bilateral nephrolithiasis without evidence for obstruction. UA was negative Past Medical/Surgical History Medical Problems: (1) Abscess of right arm (2) Abscess of right shoulder (3) Anal fistula (4) Cellulitis of shoulder (5) Cellulitis of shoulder (6) Cellulitis of shoulder (7) Direct infection of right shoulder in infectious and parasitic diseases classified elsewhere (8) Fever (9) History of MRSA infection (10) Hypokalemia (11) Hypotension (12) Infection of shoulder (13) Peripheral neuropathy (14) Right arm cellulitis (15) Right shoulder pain (16) Sepsis (17) Sepsis (18) Sepsis (19) Septic arthritis of shoulder, right (20) Septic joint of right shoulder region (21) Shoulder pain (22) Staph infection Surgical Problems: (1) H/O shoulder surgery (2) History of dental surgery (3) S/p closure of anal fissure (4) S/p kidney stone removal (5) S/p placement of Patten catheter (6) Status post debridement Family History Cancer Diabetes mellitus Heart disease Hypertension Social History Smoking Status: Never Smoker Drug Use: none Marital Status: Housing status: lives with significant other Occupational Status: employed Immunizations History of Influenza Vaccine: Unknown History of Tetanus Vaccine?: Unknown History of Pneumococcal: No History of Hepatitis B Vaccine: Unknown Allergies Coded Allergies: Iodinated Diagnostic Agents (Verified Allergy, Severe, anaphylaxis, ) Levofloxacin (Verified Allergy, Intermediate, RASH, 12/13/16) Patient received Levaquin during a previous admission (2013) but now has a rash with current administration of IV Levaquin Ciprofloxacin (Verified Allergy, Mild, RASH, 12/13/16) Morphine (Verified Allergy, Unknown, hives, 12/13/16) Home Medications Scheduled Daptomycin (Daptomycin), 400 MG IV DAILY Scheduled PRN Oxycodone HCl (Oxycodone HCl), 10 MG PO Q6H PRN for severe pain Review of Systems Constitutional: + fever Eyes: No worsening of vision, No eye pain ENT: No hearing loss, No sore throat, No trouble swallowing Respiratory: + problem reported (chest port), No cough, No sputum, No wheezing , No shortness of breath, No dyspnea on exertion, No dyspnea at rest Cardiovascular: No chest pain, No edema, No palpitations Abdomen: + problem reported (chronic loose stool), No pain, No nausea, No vomiting Musculoskeletal: + joint pain (right shoulder pain), + problem reported ( chronic right shoulder deformities) Genitourinary - Male: No dysuria Neurologic: No weakness, No numbness/tingling Psychiatric: No substance abuse Endocrine: No fatigue Hematologic / Lymphatic: No abnormal bleeding/bruising Integumentary: No rash, No itch Physical Exam Vital Signs Date Time Temp Pulse Resp B/P (MAP) Pulse Ox O2 Delivery O2 Flow Rate FiO2 09/15/17 05:36 114 20 119/47 94 09/15/17 05:06 108 09/15/17 05:00 38.4 107 20 121/90 09/15/17 04:31 101 20 121/90 97 Nasal Cannula 2.0 09/15/17 03:15 111 20 91/59 90 09/15/17 02:04 39.4 09/15/17 01:53 138 20 125/72 94 Room Air 09/15/17 01:34 136 09/15/17 01:04 39.4 137 18 130/91 96 Room Air General Appearance: + pertinent finding (standing up and leaning on bed in pain ) Head: normocephalic, atraumatic Eyes: normal inspection, EOMI, sclerae normal ENT: normal ENT inspection, hearing grossly normal, pharynx normal Neck: supple, no JVD, trachea midline Respiratory/Chest: chest non-tender, lungs clear, normal breath sounds, no respiratory distress, no accessory muscle use, + pertinent finding (chest port) Cardiovascular: no edema, no JVD, no murmur, + tachycardia Abdomen/GI: normal bowel sounds, non tender, soft, no organomegaly Genitourinary - Male: + pertinent finding (rectal exam without superficial skin fissures) Back: normal inspection, normal range of motion, + left CVA tenderness Extremities/Musculoskelatal: + pertinent finding (chronic right shoulder deformities, no fluctuance palpable) Neurologic/Psych: alert, oriented x 3 Skin: normal color, warm/dry, no rash Diagnostics Laboratory Results Results Past 24 Hours Test 09/15/17 01:15 09/15/17 01:20 09/15/17 01:25 09/15/17 04:11 Range/Units White Blood Count 12.90 4.8-10.8 K/uL Red Blood Count 5.78 4.7-6.1 M/uL Hemoglobin 16.3 14.0-18.0 g/dL Hematocrit 47.8 42-52 % Mean Corpuscular Volume 82.7 80-100 fL Mean Corpuscular Hemoglobin 28.2 25-34 pg Mean Corpuscular Hemoglobin Concent 34.1 32-36 g/dl Platelet Count 228 130-400 K/uL Mean Platelet Volume 10.2 7.4-10.4 fL Neutrophils (%) (Auto) 92.9 % Lymphocytes (%) (Auto) 4.2 % Monocytes (%) (Auto) 1.7 % Eosinophils (%) (Auto) 0.5 % Basophils (%) (Auto) 0.2 % Neutrophils # (Auto) 12.00 1.4-6.5 K/uL Lymphocytes # (Auto) 0.54 1.2-3.4 K/uL Monocytes # (Auto) 0.22 0.11-0.59 K/uL Eosinophils # (Auto) 0.06 0-0.5 K/uL Basophils # (Auto) 0.02 0-0.2 K/uL RDW Standard Deviation 44.4 36.4-46.3 fL RDW Coefficient of Variation 14.7 11.5-14.5 % Immature Granulocyte % (Auto) 0.5 % Immature Granulocyte # (Auto) 0.06 0.00-0.02 K/uL Prothrombin Time 11.0 9.0-12.0 SECONDS Prothromb Time International Ratio 1.0 0.9-1.1 Sodium Level 137 136-145 mmol/L Potassium Level 3.5 3.5-5.1 mmol/L Chloride Level 103 98-107 mmol/L Carbon Dioxide Level 23 21-32 mmol/L Anion Gap 11.0 3-11 mmol/L Blood Urea Nitrogen 12 7-18 mg/dl Creatinine 1.55 0.60-1.40 mg/dl Est Creatinine Clear Calc Drug Dose 73.3 ml/min Estimated GFR () 64.4 Estimated GFR (Non- 55.6 BUN/Creatinine Ratio 8.0 10-20 Random Glucose 109 70-99 mg/dl Calcium Level 8.9 8.5-10.1 mg/dl Total Bilirubin 1.1 0.2-1 mg/dl Aspartate Amino Transf (AST/SGOT) 29 15-37 U/L Alanine Aminotransferase (ALT/SGPT) 58 12-78 U/L Alkaline Phosphatase 150 45-117 U/L Troponin I < 0.015 0-0.045 ng/ml Total Protein 8.6 6.4-8.2 gm/dl Albumin 3.9 3.4-5.0 gm/dl Globulin 4.7 2.5-4.0 gm/dl Albumin/Globulin Ratio 0.8 0.9-2 Procalcitonin 0.79 0-0.5 ng/ml Influenza Type A Antigen Neg for Influ A NEG Influenza Type B Antigen Neg for Influ B NEG Bedside Lactic Acid Venous 2.30 0.90-1.70 mmol/L Urine Color DK YELLOW Urine Appearance CLOUDY CLEAR Urine pH 5.0 4.5-7.5 Urine Specific Evans 1.019 1.000-1.030 Urine Protein NEG NEG Urine Glucose (UA) NEG NEG Urine Ketones NEG NEG Urine Occult Blood NEG NEG Urine Nitrite NEG NEG Urine Bilirubin NEG NEG Urine Urobilinogen NEG NEG Urine Leukocyte Esterase TRACE NEG Urine WBC (Auto) 1-5 0-5 /hpf Urine RBC (Auto) 0-4 0-4 /hpf Urine Hyaline Casts (Auto) 1-5 0-5 /lpf Urine Epithelial Cells (Auto) 0-5 0-5 /lpf Urine Bacteria (Auto) NEG NEG Test 09/15/17 05:21 09/15/17 06:08 Range/Units Gastric Fluid pH 3 Gastric Fluid Occult Blood POS NEG Microbiology Results 09/15/17 Blood Culture, Received Pending 09/15/17 Blood Culture, Received Pending Impression Assessment and Plan This is a 41 year old M with recurrent right shoulder infections and multiple right shoulder surgeries who last admitted to [facility] in June 2017 with right shoulder abscess that had incision drainage by orthopedics with vancomycin and gentamicin beads placed and subsequent would cultures of grew MRSA and patient subsequently discharged on daptomycin IV, who presents with sepsis and right shoulder pain Sepsis: Patient's acute symptoms of fever began at the night time on 09/14/17. On arrival to ED was febrile 39.4 C (102.9 F), tachycardic, with leukocytosis of 12,000 and meeting criteria for sepsis, lactic acid 2.3. -mostly likely source of infection based on past medical history of recurrent right shoulder infections/ abscess and surgeries is the right shoulder -however CT imaging of right shoulder did not identify presence of abscess, have ordered right shoulder MRI -patient has been seen and operated on by Dr. Byrd in the past and [facility] -obtain echocardiogram to rule out obvious vegetations for endocarditis -ED physician started patient on IV fluids and had peripheral blood culture and blood culture from chest port line, f/u cultures -continue Vancomycin and Cefepime which was started in the ED, continue IV fluids, trend lactic acid level -Infectious disease consult requested pending study results -Critical care consult requested -UA negative -Patient also seeing surgical physician at [facility] for anal fistula which required some cleaning procedure 2 to 3 weeks ago, CT abdomen did not find acute process related to anal fistula Right flank pain -possibly muscular pain -CT abdomen showed bilateral nephrolithiasis without evidence for obstruction. UA was negative Pain control with prn Dilaudid if severe pain, bowel regimen, antiemetics Acute Kidney Injury trend GFR which is important especially as patient is receiving vancomycin, continue IV fluids Disposition: admit to telemetry service, appreciate consultation recommendations from critical care consult, infectious disease consult, orthopedics consult Full Code contact numbers: [phone], father [phone] Resuscitation Status VTE Prophylaxis Will order VTE Prophylaxis: Yes
[2017-09-15] MEDS ORDERED: HYDROmorphone INJ 1 MG/ML SYR IV PRN (06:30)
--- NOTE | 2017-09-15 06:32 | DIAGNOSTIC IMAGING REPORT ---
CHEST ONE VIEW PORTABLE CLINICAL HISTORY: fever dyspnea COMPARISON STUDY: 07/03/2017 FINDINGS: Central catheter in the right atrium. Lungs are clear. Diaphragms are smooth. No significant cardiac enlargement. IMPRESSION: No acute process. The above report was generated using voice recognition software. It may contain grammatical, syntax or spelling errors. Electronically signed by: Natanael Wilson M.D. 09/15/2017 6:31 AM Dictated Date/Time: 09/15/2017 6:30 AM
--- NOTE | 2017-09-15 06:33 | Critical Care Progress Note ---
Critical Care Progress Note Date of Service Sep 15, 2017. Critical Care Progress Note HPI: I was asked by admitting primary service to evaluate the patient for possible need for ICU admission. The patient is a 41-year-old male with a significant past medical history of recurrent RIGHT shoulder infections. During previous stays, the patient has undergone debridement of the shoulder tissue as well as washouts and placement of Stimulan Bead by Dr. Byrd. His most recent admission was in June for a similar episode. Patient continues to remain on outpatient antibiotics prescribed by Dr. Bailey from infectious disease. Currently, he reports being on Bactrim as well as daptomycin. He has used the same RIGHT-sided chest Patten Catheter for the past 1.5 years. He provides himself with his own antibiotics through his port. He has been doing so successfully for the past several days without issue. This evening, at approximately 7 PM, the patient reports that he developed worsening pain from his baseline RIGHT-sided shoulder pain. He notes that the pain became much worse than usual and describes subjective swelling to the lateral surface of the RIGHT sided shoulder. The pain made him very nauseated. In addition, he reports developing pain to the LEFT-sided flank area. He has had a recent past medical history of kidney stones and feels as though he may have passed to separates kidney stones this week. He does reportedly have a prescription for oxycodone which he tries to use conservatively for his chronic RIGHT-sided shoulder pain. He did not take any this medication this evening. He rates his current discomfort as an 8/10. He denies any headaches, dizziness , lightheadedness, chest pain, palpitations, pleuritic pain, shortness of breath , hemoptysis, hematochezia, melena, hematuria, or dysuria. The patient does report vomiting and was concern for a red color in his vomit. ROS: A complete 10-point Review of Systems was discussed with the patient, with pertinent positives and negatives listed in the History of Present Illness. All remaining Review of Systems questions can be considered negative unless otherwise specified. PMHx/PSHx: Anal fistula Cellulitis of shoulder Direct infection of right shoulder in infectious and parasitic diseases classified elsewhere History of MRSA infection Peripheral neuropathy Right shoulder pain Sepsis Staph infection History of shoulder surgery History of dental surgery Status post closure of anal fissure Status post kidney stone removal Status post placement of Patten catheter Status post debridement FamHx: Noncontributory Social Hx: Non smoker, No EtOH use, Denies illicit drug use. Lives with family. Medications: Daptomycin 400mg IV Daily, Oxycodone 10mg PO q6h PRN Pain Allergies: Iodinated diagnostic agents Levofloxacin Ciprofloxacin Morphine EXAM: VITAL SIGNS - Vital signs and nursing notes were reviewed. GENERAL - 41-year-old male appearing his stated age who is in no acute distress. Communicates well with provider and answers questions appropriately. SKIN - Large surgical incision site noted the the RIGHT lateral shoulder which is well healed. No erythema, edema, or ecchymosis noted on exam. HEAD - NC/AT. NECK - Neck with FROM. Supple to palpation. LUNGS - Chest wall symmetric without accessory muscle use, intercostals retractions, or central cyanosis. Normal vesicular breath sounds CTA B/L. No wheezes, rales, or rhonchi appreciated. CARDIAC - RRR with S1/S2. No murmur, rubs, or gallops appreciated. No reproducible tenderness to palpation appreciated over the anterior chest wall. ABDOMEN - Abdominal contour obese and without pulsations or visible masses. BS normoactive all four quadrants. Subjective tenderness to palpation in the LEFT upper quadrant/flank area. No palpable masses, hepatosplenomegaly, or ascites noted. EXTREMITIES - As above. No clubbing or peripheral cyanosis. No pretibial edema present. +3/5 radial and dorsalis pedis pulses palpated throughout. NEUROLOGIC - Cranial nerves II through XII grossly intact. Sensory intact to light touch throughout. PSYCH - A&Ox3 and cooperates fully with examiner. Pt is very pleasant and interacts well with examiner. Labs/Diagnostics: Leukocytosis greater than 12,000. Creatinine 1.55. [id number] lactic acid greater than 2. Troponin negative. Radiological imaging and reports were reviewed by myself. Assessment & Plan: 41-year-old female with sepsis from possible sources including RIGHT shoulder infection versus catheter versus other systemic infectious source. At this point, the patient is hemodynamically stable. He is tachycardic, however he is not hypotensive. He would meet sepsis criteria at this point based on fever, white count, temperature, and heart rate. I do not, however, feels that the patient warrants ICU admission at this point. Recommendations as follows: 1. Blood cultures have been obtained with 1 culture drawn through the Patten catheter. Ideally, typical sources for the patient's prior infection should be ruled out prior to considering this the sole source. With that regard, however , and with previous wound cultures positive for candidal species, may consider antifungal therapy in addition to antibiotic bundle. 2. Agree with echocardiogram for evaluation of possible vegetative lesion. 3. Agree with MRI of the upper extremity for better sensitivity for possible abscess structure. 3. Continue to trend lactic acid and pro-calcitonin levels for effective management. 4. Aggressive IV fluid resuscitation. 5. I have added orders for CPK as the patient does take daptomycin 400 mg daily. This medication has been known to cause rhabdomyolysis in certain settings. Of note, the patient does have an JACQUELINE with a creatinine of 1.5 which certainly can be seen in the setting of rhabdomyolysis. While this diagnosis may be much lower on differential, certainly needs to be ruled out. 6. I have added urine tox screen as review of PDMP shows prescription approximately 1 month ago for oxycodone for the patient to be used for the next 28 days. At this point, the patient is closing in on the completion of this prescription. If patient needs more of the medication orders overusing for pain , he may seek other avenues for pain control. In this regard, please see #5. 7. Possibility of superimposed narcotic withdrawal with the patient's presenting vital signs and known history of narcotic dependence for chronic pain. Thank you for this consultation allow us to be part of this patient's care. Please feel free to reconsult us with any changes in the patient's course.
--- NOTE | 2017-09-15 06:39 | DIAGNOSTIC IMAGING REPORT ---
R UPPER EXTREMITY WITHOUT CT DOSE: 1009.56 mGy.cm HISTORY: Pain pain, hx osteo TECHNIQUE: Multiaxial CT images of the right shoulder were performed and reformatted in the sagittal and coronal plane without the use of contrast. A dose lowering technique was utilized adhering to the principles of ALARA. COMPARISON: None. FINDINGS: Mild soft tissue infiltrative change combined with mild skin thickening. Given the patient's history this is most likely based on a postoperative standpoint. Moderate degenerative change glenohumeral joint. Mild Hill-Sachs type deformity posterior lateral aspect humeral head. No evidence for bony destructive process. No significant joint effusion. IMPRESSION: 1. Moderate degenerative change right shoulder 2. No acute bony abnormality. 3. Soft tissue changes most likely postoperative. 4. Interstitial prominence the right hemithorax. The above report was generated using voice recognition software. It may contain grammatical, syntax or spelling errors. Electronically signed by: Natanael Wilson M.D. 09/15/2017 6:38 AM Dictated Date/Time: 09/15/2017 6:36 AM
[2017-09-15] MEDS ORDERED: KETOROLAC TROMETHAMINE 15 MG/ML VIAL IV PRN (09:15)
[2017-09-15] MEDS: SODIUM CHLORIDE 0.9% 1000ML 1,000 ML IV SCH ×3 (09:29→21:29)
[2017-09-15] MEDS: DOCUSATE SODIUM 100 MG CAP PO SCH ×4 (09:29→22:09)
[2017-09-15] MEDS: SENNA 8.6 MG TAB PO SCH (09:29)
[2017-09-15] MEDS: OXYCODONE HCL IR 5 MG TAB (IMMEDIATE RELEASE) PO PRN ×2 (09:31→19:30)
--- NOTE | 2017-09-15 09:35 | Progress Note ---
Medicine Progress Note Date & Time of Visit: Sep 15, 2017 at 09:25. Subjective Seen resting in bed Comfortable awake alert conversant not in distress Having intermittent chills States he is having some vague abdominal discomfort intermittent no nausea Denies having any arm pain No chest pain shortness of breath No other symptoms Objective Last 8 Hrs Date Time Temp Pulse Resp B/P (MAP) Pulse Ox O2 Delivery O2 Flow Rate FiO2 09/15/17 06:20 38.2 118 18 126/81 95 Nasal Cannula 2.0 09/15/17 05:36 114 20 119/47 94 09/15/17 05:06 108 09/15/17 05:00 38.4 107 20 121/90 09/15/17 04:31 101 20 121/90 97 Nasal Cannula 2.0 09/15/17 03:15 111 20 91/59 90 09/15/17 02:04 39.4 09/15/17 01:53 138 20 125/72 94 Room Air 09/15/17 01:34 136 Physical Exam: General-oriented 3 not in distress speaking sentences no accessory muscle use Head- atraumatic Eyes- PERRL, EOMI, anicteric ENT- oropharynx clear Neck- supple, no JVD, no adenopathy, no thyromegaly; carotids +2/2 Lungs- clear to auscultation bilaterally Catheter site with no surrounding edema erythema warmth tenderness Heart- regular rhythm; no murmur, mild tachycardia Abdomen- normal bowel sounds, soft, nontender, no masses or hepatosplenomegaly Extremities- no pretibial edema, no calf tenderness; peripheral pulses intact Left upper arm surgical scar well-healed no erythema warmth tenderness Neuro- alert, oriented x 3; no gross focal motor or sensory deficits Skin- warm & dry Laboratory Results: Last 24 Hours Test 09/15/17 01:15 09/15/17 01:20 09/15/17 01:25 09/15/17 04:11 White Blood Count 12.90 K/uL Red Blood Count 5.78 M/uL Hemoglobin 16.3 g/dL Hematocrit 47.8 % Mean Corpuscular Volume 82.7 fL Mean Corpuscular Hemoglobin 28.2 pg Mean Corpuscular Hemoglobin Concent 34.1 g/dl Platelet Count 228 K/uL Mean Platelet Volume 10.2 fL Neutrophils (%) (Auto) 92.9 % Lymphocytes (%) (Auto) 4.2 % Monocytes (%) (Auto) 1.7 % Eosinophils (%) (Auto) 0.5 % Basophils (%) (Auto) 0.2 % Neutrophils # (Auto) 12.00 K/uL Lymphocytes # (Auto) 0.54 K/uL Monocytes # (Auto) 0.22 K/uL Eosinophils # (Auto) 0.06 K/uL Basophils # (Auto) 0.02 K/uL RDW Standard Deviation 44.4 fL RDW Coefficient of Variation 14.7 % Immature Granulocyte % (Auto) 0.5 % Immature Granulocyte # (Auto) 0.06 K/uL Prothrombin Time 11.0 SECONDS Prothromb Time International Ratio 1.0 Sodium Level 137 mmol/L Potassium Level 3.5 mmol/L Chloride Level 103 mmol/L Carbon Dioxide Level 23 mmol/L Anion Gap 11.0 mmol/L Blood Urea Nitrogen 12 mg/dl Creatinine 1.55 mg/dl Est Creatinine Clear Calc Drug Dose 73.3 ml/min Estimated GFR () 64.4 Estimated GFR (Non- 55.6 BUN/Creatinine Ratio 8.0 Random Glucose 109 mg/dl Calcium Level 8.9 mg/dl Total Bilirubin 1.1 mg/dl Aspartate Amino Transf (AST/SGOT) 29 U/L Alanine Aminotransferase (ALT/SGPT) 58 U/L Alkaline Phosphatase 150 U/L Total Creatine Kinase 102 U/L Troponin I < 0.015 ng/ml Total Protein 8.6 gm/dl Albumin 3.9 gm/dl Globulin 4.7 gm/dl Albumin/Globulin Ratio 0.8 Procalcitonin 0.79 ng/ml Influenza Type A Antigen Neg for Influ A Influenza Type B Antigen Neg for Influ B Bedside Lactic Acid Venous 2.30 mmol/L Urine Color DK YELLOW Urine Appearance CLOUDY Urine pH 5.0 Urine Specific [place] 1.019 Urine Protein NEG Urine Glucose (UA) NEG Urine Ketones NEG Urine Occult Blood NEG Urine Nitrite NEG Urine Bilirubin NEG Urine Urobilinogen NEG Urine Leukocyte Esterase TRACE Urine WBC (Auto) 1-5 /hpf Urine RBC (Auto) 0-4 /hpf Urine Hyaline Casts (Auto) 1-5 /lpf Urine Epithelial Cells (Auto) 0-5 /lpf Urine Bacteria (Auto) NEG Test 09/15/17 05:21 09/15/17 06:45 Gastric Fluid pH 3 Gastric Fluid Occult Blood POS Lactic Acid Level 2.3 mmol/L Date/Time Source Procedure Growth Status 09/15/17 01:53 Blood Blood Culture Pending Received 09/15/17 01:15 Blood Blood Culture Pending Received Assessment & Plan This is a 41 year old M with recurrent right shoulder infections and multiple right shoulder surgeries who last admitted to [facility] in June 2017 with right shoulder abscess that had incision drainage by orthopedics with vancomycin and gentamicin beads placed and subsequent would cultures of grew MRSA and patient subsequently discharged on daptomycin IV, who presents with sepsis and right shoulder pain SEPSIS POSSIBLE BACTEREMIA VERSUS LINE INFECTION CT abdomen and pelvis no focus of infection CT upper extremity no signs of abscess MRI of upper extremity pending Blood cultures pending Change vancomycin to daptomycin IV based on previous cultures Continue additional cefepime ID consulted Continue IV fluids Monitor lactic acid RECURRENT RIGHT SHOULDER INFECTION CT upper extremity no infection MRI upper extremity pending Orthopedic service consulted HISTORY OF ANAL FISTULAS CT abdomen pelvis no acute process ACUTE RENAL FAILURE Likely from sepsis possibly prerenal etiology Continue IV normal saline solution PAIN MANAGEMENT Avoid IV Dilaudid in the setting of sepsis to prevent hypotension Start oxycodone immediate release every 6 hours as needed for pain Avoid Toradol as needed due to acute renal failure Start Ofirmev IV 650 q. 8 as needed Disposition: Pending Anticipate discharge to home when medically stable cleared by ID Full Code contact numbers: [phone], father [phone] Current Inpatient Medications: Current Inpatient Medications Medications (Trade) Dose Ordered Sig/Diane Route Start Time Stop Time Status Last Admin Dose Admin Sodium Chloride 1,000 ml @ 150 mls/hr Q6H40M IV 09/15/17 08:00 10/15/17 07:59 Acetaminophen (Tylenol Tab) 650 mg Q4H PRN PO 09/15/17 06:30 10/15/17 06:29 Senna (Senokot Tab) 8.6 mg QAM PO 09/15/17 09:00 10/15/17 08:59 Docusate Sodium (coLACE CAP) 100 mg BID PO 09/15/17 09:00 10/15/17 08:59 Diphenhydramine HCl (Benadryl Inj) 12.5 mg Q8H PRN IV 09/15/17 06:30 10/15/17 06:29 Ondansetron HCl (Zofran Inj) 4 mg Q6H PRN IV 09/15/17 07:00 10/15/17 06:59 Cefepime HCl 2000 mg/Syringe 20 ml @ 5 mls/min Q8H IV 09/15/17 14:00 10/27/17 13:59 Oxycodone HCl (Roxicodone Immediate Rel Tab) 10 mg Q6H PRN PO 09/15/17 09:15 09/29/17 09:14 Ketorolac Tromethamine (Toradol Inj) 15 mg Q6H PRN IV 09/15/17 09:15 09/20/17 09:14 Miscellaneous Information (Pharmacy Consult) 1 ea NOW STAT N/A 09/15/17 09:19 09/15/17 09:20 UNV Pantoprazole Sodium 40 mg/ Syringe 10 ml @ 5 mls/min NOW ONCE IV 09/15/17 09:30 09/15/17 09:31 UNV
[2017-09-15] MEDS ORDERED: CONSULT PHARMACY PRN (09:59)
[2017-09-15 10:02] VITALS: BP 112/26; PULSE 114; TEMP 37.7; O2SAT 93; Ht 175.3 cm; Wt 99.1 kg
[2017-09-15] MEDS: DiphenhydrAMINE HCL 50 MG/ML VIAL IV PRN ×2 (10:18→21:39)
[2017-09-15] MEDS: DAPTOmycin IV 575 MG in SYRINGE 0 ML IV SCH (11:11)
--- NOTE | 2017-09-15 11:31 | DIAGNOSTIC IMAGING REPORT ---
R UPPER EXT JOINT WITHOUT CLINICAL HISTORY: sepsis, history of right shoulder abscess and infections TECHNIQUE: MRI multi axial acquisition COMPARISON STUDY: 09/19/2016 FINDINGS: Transaxial images demonstrate considerable improvement of the small pockets of fluid described previously. They appear to completely resolved. There is a minimal amount of subcutaneous edematous change. Signal characteristics of the bony structures show no significant bone marrow replacing process. Muscular structures appear grossly unremarkable in terms of signal character. Rotator cuff shows moderate degenerative change. Moderate supraspinatus tendinopathy is present. There does not appear to be evidence for full-thickness rotator cuff tear. There is moderate degenerative changes of the articular services of the glenohumeral joint. There continues to be considerable substance loss the glenoid labrum the complex tear present described appear to improved compared to the prior study. Infraspinatus and subscapularis tendons are intact. Bicipital groove is poorly seen in this exam. There are degenerative changes posterior lateral aspect humeral head most likely consistent with a Hill-Sachs type deformity. IMPRESSION: 1. Degenerative change of the glenohumeral joint with evidence for postoperative changes to the soft tissues lateral to the humerus. 2. The previously described complex fluid collections on the prior study of 2016 have resolved. 3. Minimal residual edematous and/or infiltrative changes of the subcutaneous fat lateral to the deltoid. 4. No evidence for abscess or collection. 5. No evidence for osteomyelitis. The above report was generated using voice recognition software. It may contain grammatical, syntax or spelling errors. Electronically signed by: Natanael Wilson M.D. 09/15/2017 11:29 AM Dictated Date/Time: 09/15/2017 11:25 AM
[2017-09-15 11:52] VITALS: BP 111/71; PULSE 91; TEMP 37.9; O2SAT 98
[2017-09-15] MEDS: ACETAMINOPHEN IV 650 MG in EMPTY BAG 0 ML IV PRN (12:34)
[2017-09-15] MEDS ORDERED: CEFEPIME IV 2,000 MG in DEXTROSE 5% 100ML 100 ML IV SCH (14:00)
[2017-09-15] MEDS: CEFEPIME IV 2,000 MG in SYRINGE 7.5 ML IV SCH ×2 (14:34→21:30)
[2017-09-15 15:46] VITALS: BP 117/65; PULSE 86; TEMP 37.1; O2SAT 96
[2017-09-15 16:00] VITALS: O2SAT 96
[2017-09-15] MEDS ORDERED: VANCOMYCIN IV 1,500 MG in SODIUM CHLORIDE 0.9% 250ML 250 ML IV SCH (16:00)
--- NOTE | 2017-09-15 16:40 | ORTHOPEDIC CONSULTATION ---
DATE OF CONSULTATION: 09/15/2017 HISTORY OF PRESENT ILLNESS: This is a 41-year-old [id number] gentleman seen at request of Dr. Nazario for right upper extremity recurrent cellulitis and pain. This is a patient who is well known to the orthopedic service. He has had multiple surgical procedures performed by Dr. Byrd last of which was in June 2017 with incision and drainage with implantation of antibiotic laden cement beads into the right shoulder region. The patient had been placed back on IV daptomycin for a period of approximately 8-1/2 weeks. He was then transitioned to oral Bactrim under the guidance of Dr. Bailey with infectious disease and then subsequently, the patient started developing acute fevers and chills in the evening of 09/14/2017. He arrived in the Emergency Department in the tobacco baler hours of 09/15/2017, febrile at 39.4 degrees Celsius, tachycardic with leukocytosis of 12,000. The patient was started on IV fluids and IV antibiotics, admitted to the hospital and orthopedics was consulted. The patient had a CT scan of the shoulder. There was no evidence for abscess. CT abdomen noted bilateral nephrolithiasis with evidence for obstruction. UA was negative. Currently, patient states that symptoms are possibly slightly improved after IV antibiotics and hospital admission. He did state that he has intermittent bouts of fevers and slight chills over the last 24 hours. He notes no worsening of his current shoulder pain, which has been chronic. The plan was for him to be infection free for 1 year to have a shoulder replacement of his right upper extremity in [place]; however, he has been unable to achieve that goal at this point. PAST MEDICAL HISTORY: Abscess on the right arm, upper extremity abscess on the right shoulder, anal fistula cellulitis, cellulitis of shoulder, direct infection of right shoulder not otherwise specified, fever, history of MRSA infection, hypertension, infection of shoulder, peripheral neuropathy, right arm cellulitis, right shoulder pain, sepsis, septic arthritis of right shoulder, staph infection. PAST SURGICAL HISTORY: History of arthroscopic shoulder surgery with rotator cuff repair, history of closure of anal fissure, history of dental surgery, history of kidney stone removal, history of placement of Patten catheter, status post debridement right shoulder x4 with implantation of antibiotic cement beads. ALLERGIES: IODINATED DIAGNOSTIC AGENTS, LEVOFLOXACIN WITH RASH CIPROFLOXACIN RASH, MORPHINE HIVES. MEDICATIONS: Home medications, daptomycin 400 mg IV daily, oxycodone 10 mg p.o. q. 6 hours p.r.n. for severe pain. Please note the current medication list during this hospital stay. SOCIAL HISTORY: Denies tobacco or drug use. Drinks rarely. He is and lives with his . He is employed. PHYSICAL EXAMINATION: GENERAL: This is a [id number] 41-year-old gentleman. He is alert and oriented x3. Speech is clear and fluent. Affect is appropriate. Cranial nerves II-XII are grossly intact. EXTREMITIES: Examination of the right upper extremity demonstrates well-healed surgical incisions around the right shoulder. There is a longer incision with indentation without any evidence of dehiscence on the lateral aspect of the shoulder. There is no fluctuant, no abscess, no significant erythema, no blotchiness or patchiness. Radial, ulnar, median and axillary nerve sensory and motor function is intact. Radial pulses are 2/4 bilateral upper extremities. He has limited active and passive range of motion of the right shoulder due to pain and guarding. IMAGING STUDIES: Reviewed including MRI revealing no evidence of fluid collection or abscess formation. No indicators of osteomyelitis. Moderate degenerative arthritis with loss of joint space and rotator cuff insufficiency is noted. Also, there is glenoid labral insufficiency. LABORATORIES: Reviewed. IMPRESSION: Right upper extremity cellulitis, sepsis. RECOMMENDATIONS: At this time, the patient is nonsurgical. We would recommend continued IV antibiotics, consultation with infectious disease with Dr. Bailey, and continue monitoring of care. We will discuss with Dr. Byrd. Thank you for the opportunity to consult in the care of this patient. FRANCO
[2017-09-15 19:14] VITALS: BP 115/78; PULSE 87; TEMP 37.1; O2SAT 96
[2017-09-15] MEDS ORDERED: DAPTOMYCIN CONSULT ACTIVE PRN (19:15)
--- NOTE | 2017-09-15 19:56 | ECHOCARDIOGRAM REPORT ---
*NOTICE TO RECEIVING DEMOCRAT AGENCY This information is strictly Confidential and protected under [place] law. [place] law prohibits you from making any further disclosure of this information unless further disclosure is expressly permitted by the written consent of the person to whom it pertains or is authorized by law. A general authorization for the release of medical or other information is not sufficient for this purpose. Hospital accepts no responsibility if the information is made available to any other person, INCLUDING THE PATIENT. Interpretation Summary * Name: ODALYS GALVEZ Study Date: 09/15/2017 01:50 PM BP: 111/71 mmHg * Patient Location: C.2E\S\E211\S\1 HR: 90 * : 1975 (M/d/yyyy) Gender: Male Height: 69 in * Age: 41 yrs Ethnicity: CA Weight: 212 lb * Ordering Physician: Valentín Garcia * Referring Physician: Self, Referred * Performed By: Oscar Neumann RDCS * * Reason For Study: Endocarditis? * BSA: 2.1 m2 * -- Conclusions -- * The left ventricle is normal in size. * There is normal left ventricular wall thickness. * The left ventricular wall motion is normal. * Left ventricular systolic function is normal. * Ejection Fraction = 65-70%. * No valvular abnormalities are visualized * There is no pericardial effusion. Procedure Details * A complete two-dimensional transthoracic echocardiogram was performed (2D, M-mode, Doppler and color flow Doppler). * The study was technically adequate. Left Ventricle * The left ventricle is normal in size. * There is normal left ventricular wall thickness. * Left ventricular systolic function is normal. * Ejection Fraction = 65-70%. * The left ventricular wall motion is normal. Right Ventricle * The right ventricle is normal in size and function. Atria * The left atrial size is normal. * Right atrial size is normal. * No ASD detected; PFO is not assessed. Mitral Valve * The mitral valve anatomy is normal. * There is no mitral valve stenosis. * There is trace mitral regurgitation. Tricuspid Valve * The tricuspid valve anatomy is normal. * There is no tricuspid stenosis. * There is trace tricuspid regurgitation. Aortic Valve * The aortic valve is trileaflet. * No hemodynamically significant valvular aortic stenosis. * No aortic regurgitation is present. Pulmonic Valve * The pulmonic valve is not well visualized. * There is no pulmonic valvular regurgitation. Great Vessels * The aortic root is normal size. Pericardium/Pleural * There is no pericardial effusion. Great Vessels * Normal inferior vena cava diameter and respiratory variation suggests normal central venous pressure. MMode 2D Measurements and Calculations IVSd 0.81 cm IVSs 1.2 cm LVIDd 4.0 cm LVIDs 3.4 cm LVPWd 0.84 cm LVPWs 1.3 cm IVS/LVPW 0.96 FS 14.8 % EDV(Teich) 71.3 ml ESV(Teich) 48.6 ml EF(Teich) 31.8 % EDV(cubed) 65.5 ml ESV(cubed) 40.6 ml EF(cubed) 38.1 % % IVS thick 44.7 % % LVPW thick 55.0 % LV mass(C)d 98.7 grams LV mass(C)dI 46.6 grams/m\S\2 LV mass(C)s 138.6 grams LV mass(C)sI 65.4 grams/m\S\2 SV(Teich) 22.7 ml SI(Teich) 10.7 ml/m\S\2 SV(cubed) 25.0 ml SI(cubed) 11.8 ml/m\S\2 Ao root diam 3.4 cm Ao root area 9.1 cm\S\2 ACS 2.3 cm LA dimension 3.4 cm asc Aorta Diam 3.2 cm LA/Ao 1.0 LVOT diam 2.2 cm LVOT area 3.9 cm\S\2 LVAd ap4 27.1 cm\S\2 LVLd ap4 8.4 cm EDV(MOD-sp4) 72.1 ml EDV(sp4-el) 73.7 ml LVAs ap4 12.6 cm\S\2 LVLs ap4 6.7 cm ESV(MOD-sp4) 18.5 ml ESV(sp4-el) 19.9 ml EF(MOD-sp4) 74.3 % EF(sp4-el) 73.0 % LVAd ap2 33.5 cm\S\2 LVLd ap2 9.5 cm EDV(MOD-sp2) 102.0 ml EDV(sp2-el) 100.4 ml LVAs ap2 16.0 cm\S\2 LVLs ap2 7.4 cm ESV(MOD-sp2) 28.5 ml ESV(sp2-el) 29.7 ml EF(MOD-sp2) 72.0 % EF(sp2-el) 70.4 % LVLd %diff 11.0 % EDV(MOD-bp) 87.9 ml LVLs %diff 8.4 % ESV(MOD-bp) 23.4 ml EF(MOD-bp) 73.4 % SV(MOD-sp4) 53.6 ml SI(MOD-sp4) 25.3 ml/m\S\2 SV(MOD-sp2) 73.4 ml SI(MOD-sp2) 34.7 ml/m\S\2 SV(MOD-bp) 64.4 ml SI(MOD-bp) 30.4 ml/m\S\2 SV(sp4-el) 53.8 ml SI(sp4-el) 25.4 ml/m\S\2 SV(sp2-el) 70.7 ml SI(sp2-el) 33.4 ml/m\S\2 Doppler Measurements and Calculations MV E max taylor 94.5 cm/sec MV A max taylor 72.5 cm/sec MV E/A 1.3 MV dec time 0.17 sec Ao V2 max 141.5 cm/sec Ao max PG 8.0 mmHg Ao max PG (full) 2.8 mmHg DINAH(V,A) 3.2 cm\S\2 DINAH(V,D) 3.2 cm\S\2 LV V1 max PG 5.2 mmHg LV V1 max 114.6 cm/sec
--- NOTE | 2017-09-15 20:43 | Progress Note ---
Post ICU Progress Note Date & Time Sep 15, 2017 at 20:42 Vital Signs Vital Signs Past 12 Hours Date Time Temp Pulse Resp B/P (MAP) Pulse Ox O2 Delivery O2 Flow Rate FiO2 09/15/17 20:00 Room Air 09/15/17 19:14 37.1 87 18 115/78 (90) 96 Room Air 09/15/17 16:00 96 Room Air 09/15/17 15:46 37.1 86 18 117/65 (82) 96 Room Air 09/15/17 12:00 Room Air 09/15/17 11:52 37.9 91 20 111/71 (84) 98 Room Air 09/15/17 10:02 37.7 114 22 112/26 93 Room Air Notes Consider outpatient follow up in 1 to 2 weeks with: [] Repeat imaging needed: [] Follow up cultures: [] Reviewed progress notes, labs, and inpatient medication list Continue current management Additional recommendations: [] Please feel free to reconsult as needed
[2017-09-16] VITALS (11 sets, daily range): BP systolic 114–145; BP diastolic 67–93; PULSE 84–111; TEMP 37.8–39.5; O2SAT 93–99
[2017-09-16] MEDS: OXYCODONE HCL IR 5 MG TAB (IMMEDIATE RELEASE) PO PRN ×4 (01:43→22:23)
[2017-09-16] MEDS: ONDANSETRON INJ 2 MG/ML 2 ML VIAL IV PRN (01:47)
[2017-09-16] MEDS: ACETAMINOPHEN 325 MG TAB PO PRN ×3 (01:47→23:55)
--- NOTE | 2017-09-16 03:39 | Progress Note ---
Post ICU Progress Note Date & Time Sep 16, 2017 at 03:24 Vital Signs Vital Signs Past 12 Hours Date Time Temp Pulse Resp B/P (MAP) Pulse Ox O2 Delivery O2 Flow Rate FiO2 09/16/17 01:51 39.5 09/16/17 01:43 39.5 09/16/17 00:22 37.8 105 19 130/76 (94) 99 Room Air 09/15/17 23:59 Room Air 09/15/17 20:00 Room Air 09/15/17 19:14 37.1 87 18 115/78 (90) 96 Room Air 09/15/17 16:00 96 Room Air 09/15/17 15:46 37.1 86 18 117/65 (82) 96 Room Air Notes Mental Status: alert / awake Nausea / Vomiting: improving with treatment Pain: improving with treatment Airway Patency, RR, SpO2: stable & adequate BP & HR: stable & adequate Patient is a 41-year-old male who had the pleasure seen in consultation yesterday morning for concerns of sepsis from unknown source. On review the patient's record today, he did grow out gram-negative bacteria in cultures 2. In addition to the daptomycin, cefepime was added which is certainly appropriate. His lactic acid has normalized. He has had improvement of heart rate with control of his fever. MRI demonstrated no significant areas in the RIGHT shoulder for infection. Other previously documented sources are still possibilities at this time. On evaluation the patient, he is resting comfortably. He does report continued episodes of what he describes as rigors, however he admits that they have certainly improved. At this point, he offers no other complaints and does admittedly report feeling better. Consider outpatient follow up in 1 to 2 weeks with: Michelle MYERS Repeat imaging needed: No other suggestions at this point. Follow up cultures: Repeat blood cultures as clinical picture improves. Reviewed progress notes, labs, and inpatient medication list Continue current management Additional recommendations: No further recommendations at this point. Patient appears clinically well despite underlying pathology. Please feel free to reconsult as needed.
[2017-09-16] MEDS: SODIUM CHLORIDE 0.9% 1000ML 1,000 ML IV SCH ×3 (06:09→14:15)
[2017-09-16] MEDS: ACETAMINOPHEN IV 650 MG in EMPTY BAG 0 ML IV PRN (06:09)
[2017-09-16] MEDS: CEFEPIME IV 2,000 MG in SYRINGE 7.5 ML IV SCH ×3 (06:10→20:11)
[2017-09-16] MEDS: DiphenhydrAMINE HCL 50 MG/ML VIAL IV PRN ×2 (06:10→15:52)
--- NOTE | 2017-09-16 07:12 | Progress Note ---
Progress Note Date of Service Sep 16, 2017. Progress Note ID Consult Dictated #[id number] A/P: 1. GNR sepsis - multiple potential sources -Repeat blood cultures -Await final -Will follow, thank you
[2017-09-16] MEDS: DOCUSATE SODIUM 100 MG CAP PO SCH (08:58)
[2017-09-16] MEDS: SENNA 8.6 MG TAB PO SCH (08:58)
--- NOTE | 2017-09-16 09:20 | INFECT. DISEASE CONSULTATION ---
DATE OF CONSULTATION: 09/16/2017 HISTORY OF PRESENT ILLNESS: This is a 41-year-old gentleman with a history of a right shoulder infection. He has had multiple surgeries and multiple infections with varying organisms over the past few years. Most recently, he was admitted in June and he was found to have MRSA infection of his shoulder. He did undergo washout and was placed on a 6-week course of IV daptomycin. He states that he stopped this 12-13 days ago. He does have a port in the right chest wall, which has been in place for a prolonged period of time. He denies any pain or erythema around the port. A few weeks back, he was at [facility] and had an anal fistula repair. He states that this went well and he tolerated the procedure without difficulty. Yesterday evening, he started with a sudden onset fevers up to 103 degrees at home. He came to the ER and he has been persistently febrile since admission with a T-max of 39.5. He was started on daptomycin and cefepime. He did have blood cultures drawn in the ER, both of which are growing gram-negative rods. He states one was done peripherally and one was taken from his port. He denies any increased pain in the right shoulder. His incision is closed, but he states that there was a prolonged closure of his wound. He states that it closed completely just a week to week and a half ago. He did have a white blood cell count of 12,000. He did undergo a CAT scan of the abdomen and pelvis, which was unremarkable with the exception of nonobstructing stones. He did have an MRI of the shoulder, which did not show any evidence of abscess or osteomyelitis. He was evaluated by orthopedic surgery and there is no plan for any surgical intervention at this time. On my examination today, he is ambulating in his room. He does admit to baseline right shoulder pain. He denies any rigors. He currently is not complaining of any fever. He denies any chest pain, cough, shortness of breath, nausea, vomiting, diarrhea or abdominal pain. He has no urinary symptoms. He denies any sick contacts. His remaining review of systems is unremarkable. PAST MEDICAL HISTORY: Significant for a right shoulder infection complicated by multiple courses of intravenous antibiotics and multiple surgical interventions, peripheral neuropathy. PAST SURGICAL HISTORY: Significant for multiple shoulder surgeries, dental surgery, recent closure of an anal fistula, kidney stone removal, Patten catheter. FAMILY HISTORY: Noncontributory. SOCIAL HISTORY: Negative for tobacco use, alcohol use or drug use. ALLERGIES: HE HAS ALLERGIES TO IODINE, LEVAQUIN AND MORPHINE. CURRENT MEDICATIONS: Include cefepime, daptomycin, acetaminophen, Roxicodone, Senokot, Colace, Zofran, Tylenol and Benadryl. PHYSICAL EXAMINATION: VITAL SIGNS: He currently temperature of 38.5, T-max was 39.5, pulse 105, respiratory rate 18, blood pressure 114/67, oxygen saturation is 95% on room air. GENERAL: He is awake, alert and oriented x3. He is in no acute distress. HEENT: Mucous membranes are moist. Extraocular muscles are intact. HEART: Regular. LUNGS: Clear bilaterally. ABDOMEN: Soft, nontender, and nondistended. There is no lower extremity edema. SKIN: Without rash. Examination of the Patten catheter reveals no surrounding erythema, warmth, tenderness or induration. Right shoulder incision is closed. There is tenderness, but no erythema, warmth or induration. LABORATORY STUDIES: CBC reveals a white blood cell count of 12.9, hemoglobin 16.3 and platelets are 228. Chemistry panel: Sodium 137, potassium 3.5, chloride 103, bicarbonate 23, BUN 12, creatinine 1.5, glucose 109. LFTs are within normal limits. Procalcitonin was mildly elevated at 0.7. UA is negative. Flu swab was negative. Again, blood cultures on the 24th are growing gram-negative rods. Imaging is as above. ASSESSMENT AND PLAN: Gram-negative ras, septicemia with multiple potential sources including anal fistula repair, port or shoulder. He will be continued on empiric antibiotics. Repeat blood cultures will be obtained today. He did have an echocardiogram yesterday that was negative for vegetation. Final antibiotic recommendations will depend on sensitivities. We will follow along with you. Thank you for this consultation.
[2017-09-16 09:53] LABS: BASO % 0.3 %; BASO ABS # 0.03 K/uL (0-0.2); EOS ABS # 0.27 K/uL (0-0.5); HEMATOCRIT 36.7 % (42-52); HEMOGLOBIN 11.9 g/dL (14.0-18.0); IG# 0.02 K/uL (0.00-0.02); LYMPH % 11.4 %; LYMPH ABS # 1.04 K/uL (1.2-3.4); MEAN CELL VOLUME 83.4 fL (80-100); MEAN CORPUSCULAR HGB CONC 32.4 g/dl (32-36); MEAN PLATELET VOLUME 10.2 fL (7.4-10.4); MONO % 11.2 %; MONO ABS # 1.02 K/uL (0.11-0.59); NEUT % 73.9 %; NEUT ABS # 6.72 K/uL (1.4-6.5); PLATELET COUNT 126 K/uL (130-400); RED CELL DISTRIBUTION WIDTH CV 15.2 % (11.5-14.5); RED CELL DISTRIBUTION WIDTH SD 46.7 fL (36.4-46.3)
[2017-09-16 10:07] LABS: CALCIUM 7.3 mg/dl (8.5-10.1); CREATININE 1.3 mg/dl (0.60-1.40); POTASSIUM 3.2 mmol/L (3.5-5.1)
[2017-09-16] MEDS: DAPTOmycin IV 575 MG in SYRINGE 0 ML IV SCH (10:50)
--- NOTE | 2017-09-16 14:14 | Orthopedic Progress Note ---
Orthopedic Progress Note Date of Service Sep 16, 2017. Subjective Reports: complaints (Mild shoulder pain unchanged from baseline.), Denies: chest pain, SOB, nausea / vomiting, light headedness, calf pain Additional Notes: No active fevers. No chills. No N/V/D. Objective calves soft nontender, N/V intact, capillary refill less than 2 sec., A&O x3 Right shoulder incision well healed. No erythema. No increased warmth right shoulder. No streaking. No palpable abscess R shoulder. Radial pulse 2/4 B UE. Date Time Temp Pulse Resp B/P (MAP) Pulse Ox O2 Delivery O2 Flow Rate FiO2 09/16/17 12:00 37.8 84 24 135/84 (101) 96 Room Air 09/16/17 12:00 Room Air 09/16/17 08:00 Room Air 09/16/17 07:46 38.2 92 28 128/79 (95) 93 Room Air 09/16/17 04:00 Room Air 09/16/17 04:00 38.5 105 18 114/67 (83) 95 Room Air 09/16/17 01:51 39.5 09/16/17 01:43 39.5 09/16/17 00:22 37.8 105 19 130/76 (94) 99 Room Air 09/15/17 23:59 Room Air 09/15/17 20:00 Room Air 09/15/17 19:14 37.1 87 18 115/78 (90) 96 Room Air 09/15/17 16:00 96 Room Air 09/15/17 15:46 37.1 86 18 117/65 (82) 96 Room Air Laboratory Results 24 Hours: Test 09/16/17 08:58 White Blood Count 9.10 K/uL Red Blood Count 4.40 M/uL Hemoglobin 11.9 g/dL Hematocrit 36.7 % Mean Corpuscular Volume 83.4 fL Mean Corpuscular Hemoglobin 27.0 pg Mean Corpuscular Hemoglobin Concent 32.4 g/dl Platelet Count 126 K/uL Mean Platelet Volume 10.2 fL Neutrophils (%) (Auto) 73.9 % Lymphocytes (%) (Auto) 11.4 % Monocytes (%) (Auto) 11.2 % Eosinophils (%) (Auto) 3.0 % Basophils (%) (Auto) 0.3 % Neutrophils # (Auto) 6.72 K/uL Lymphocytes # (Auto) 1.04 K/uL Monocytes # (Auto) 1.02 K/uL Eosinophils # (Auto) 0.27 K/uL Basophils # (Auto) 0.03 K/uL Assessment & Plan Assessment: Right shoulder pain improving/stable. No evidence for abscess right shoulder Gram negative Bacillus septicemia Nonoperative Plan: Cont IV anbx as per ID and internal medicine Nonoperative orthopedic management Supportive care F/U w/ Dr Byrd as outpatient in 2-3 weeks
--- NOTE | 2017-09-16 14:40 | Progress Note ---
Medicine Progress Note Date & Time of Visit: Sep 16, 2017 at 14:25. Subjective seen resting in bed visiting states he feels a little better still has occasional chills no chest pain, dyspnea, palpitations, dizziness no rectal bleeding, rectal pain reports intermittent pain on the right arm no other symptoms Objective Last 8 Hrs Date Time Temp Pulse Resp B/P (MAP) Pulse Ox O2 Delivery O2 Flow Rate FiO2 09/16/17 12:00 37.8 84 24 135/84 (101) 96 Room Air 09/16/17 12:00 Room Air 09/16/17 08:00 Room Air 09/16/17 07:46 38.2 92 28 128/79 (95) 93 Room Air Physical Exam: General-oriented 3 not in distress speaking sentences no accessory muscle use Eyes- anicteric ENT- oropharynx clear Neck- no JVD Lungs- clear to breath sounds bilaterally Catheter site with no surrounding edema erythema warmth tenderness Heart- regular rhythm; no murmur, normal rate Abdomen- normal bowel sounds, soft, nontender, Extremities- no pretibial edema, no calf tenderness; peripheral pulses intact Left upper arm surgical scar well-healed no erythema warmth tenderness Neuro- alert, oriented x 3; no gross focal motor or sensory deficits Skin- warm & dry Laboratory Results: Last 24 Hours Test 09/15/17 19:07 09/16/17 08:58 09/16/17 14:11 Lactic Acid Level 1.2 mmol/L White Blood Count 9.10 K/uL Red Blood Count 4.40 M/uL Hemoglobin 11.9 g/dL Hematocrit 36.7 % Mean Corpuscular Volume 83.4 fL Mean Corpuscular Hemoglobin 27.0 pg Mean Corpuscular Hemoglobin Concent 32.4 g/dl Platelet Count 126 K/uL Mean Platelet Volume 10.2 fL Neutrophils (%) (Auto) 73.9 % Lymphocytes (%) (Auto) 11.4 % Monocytes (%) (Auto) 11.2 % Eosinophils (%) (Auto) 3.0 % Basophils (%) (Auto) 0.3 % Neutrophils # (Auto) 6.72 K/uL Lymphocytes # (Auto) 1.04 K/uL Monocytes # (Auto) 1.02 K/uL Eosinophils # (Auto) 0.27 K/uL Basophils # (Auto) 0.03 K/uL RDW Standard Deviation 46.7 fL RDW Coefficient of Variation 15.2 % Immature Granulocyte % (Auto) 0.2 % Immature Granulocyte # (Auto) 0.02 K/uL Sodium Level 138 mmol/L Potassium Level 3.2 mmol/L Chloride Level 108 mmol/L Carbon Dioxide Level 25 mmol/L Anion Gap 5.0 mmol/L Blood Urea Nitrogen 15 mg/dl Creatinine 1.30 mg/dl Est Creatinine Clear Calc Drug Dose 89.7 ml/min Estimated GFR () 79.7 Estimated GFR (Non- 68.7 BUN/Creatinine Ratio 11.5 Random Glucose 118 mg/dl Calcium Level 7.3 mg/dl Date/Time Source Procedure Growth Status 09/16/17 08:58 Blood Blood Culture Pending Received 09/16/17 08:31 Blood Blood Culture Pending Received Assessment & Plan This is a 41 year old M with recurrent right shoulder infections and multiple right shoulder surgeries who last admitted to [facility] in June 2017 with right shoulder abscess that had incision drainage by orthopedics with vancomycin and gentamicin beads placed and subsequent would cultures of grew MRSA and patient subsequently discharged on daptomycin IV, who presents with sepsis and right shoulder pain SEPSIS secondary to GRAM NEGATIVE BACTEREMIA risk factor: recent rectal surgery for fistula repair [address] abdomen and pelvis no focus of infection CT upper extremity no signs of abscess MRI of upper extremity no signs of abscess/osteo Blood cultures gram neg bacilli Changed vancomycin to daptomycin IV Day 2 Continue additional cefepime day 2 ID consulted patient has a muller catheter that was place 1 year and 8 months ago, will discuss with ID Continue IV fluids Monitor lactic acid RECURRENT RIGHT SHOULDER INFECTION CT upper extremity no infection MRI upper extremity no infection Orthopedic service consulted HISTORY OF ANAL FISTULAS CT abdomen pelvis no acute process ACUTE RENAL FAILURE Resolved Likely from sepsis possibly prerenal etiology Continue IV normal saline solution PAIN MANAGEMENT Avoid IV Dilaudid in the setting of sepsis to prevent hypotension Oxycodone immediate release every 6 hours as needed for pain Avoid Toradol as needed due to acute renal failure Start Ofirmev IV 650 q. 8 as needed Disposition: Pending Anticipate discharge to home when medically stable cleared by ID may need prolonged IV antibiotics Full Code contact numbers: [phone], father [phone] Current Inpatient Medications: Current Inpatient Medications Medications (Trade) Dose Ordered Sig/Diane Route Start Time Stop Time Status Last Admin Dose Admin Sodium Chloride 1,000 ml @ 75 mls/hr [id number] IV 09/15/17 08:00 10/15/17 07:59 09/16/17 14:15 75 MLS/HR Acetaminophen (Tylenol Tab) 650 mg Q4H PRN PO 09/15/17 06:30 10/15/17 06:29 09/16/17 01:47 650 MG Senna (Senokot Tab) 8.6 mg QAM PO 09/15/17 09:00 10/15/17 08:59 09/15/17 09:29 8.6 MG Docusate Sodium (coLACE CAP) 100 mg BID PO 09/15/17 09:00 10/15/17 08:59 09/15/17 09:29 100 MG Diphenhydramine HCl (Benadryl Inj) 12.5 mg Q8H PRN IV 09/15/17 06:30 10/15/17 06:29 09/16/17 06:10 12.5 MG Ondansetron HCl (Zofran Inj) 4 mg Q6H PRN IV 09/15/17 07:00 10/15/17 06:59 09/16/17 01:47 4 MG Cefepime HCl 2000 mg/Syringe 20 ml @ 5 mls/min Q8H IV 09/15/17 14:00 10/27/17 13:59 09/16/17 14:15 5 MLS/MIN Oxycodone HCl (Roxicodone Immediate Rel Tab) 10 mg Q6H PRN PO 09/15/17 09:15 09/29/17 09:14 09/16/17 09:03 10 MG Miscellaneous Information (Pharmacy Consult) 1 ea UD PRN N/A 09/15/17 09:59 10/15/17 09:58 Acetaminophen 650 mg/Empty Bag 65 ml @ 260 mls/hr Q8H PRN IV 09/15/17 09:30 10/15/17 09:29 09/16/17 06:09 260 MLS/HR Daptomycin 575 mg/ Syringe 11.5 ml @ 5.75 mls/ min Q24H IV 09/15/17 10:30 09/25/17 10:29 09/16/17 10:50 5.75 MLS/MIN Potassium Chloride (Klor-Con M10) 40 meq ONE PO 09/16/17 14:15 10/16/17 14:14 UNV
[2017-09-16 15:07] LABS: ALBUMIN 2.6 gm/dl (3.4-5.0)
[2017-09-16] MEDS ORDERED: POTASSIUM CHLORIDE 10 MEQ TABCR PO ONE (15:30)
[2017-09-16] MEDS ORDERED: [UNRECOGNIZED DRUG - REMARK] PRN (19:06)
[2017-09-16] MEDS ORDERED: ERTAPENEM CONSULT ACTIVE PRN (19:15)
[2017-09-16] MEDS: ERTAPENEM IV 1,000 MG in SODIUM CHLORIDE 0.9% 50ML 50 ML IV SCH (20:10)
[2017-09-16] MEDS: MAGNESIUM OXIDE 400 MG TAB PO SCH (20:10)
[2017-09-17] VITALS (12 sets, daily range): BP systolic 113–162; BP diastolic 74–115; PULSE 81–104; TEMP 36.7–39.5; O2SAT 93–98
[2017-09-17] MEDS: DiphenhydrAMINE HCL 50 MG/ML VIAL IV PRN ×3 (00:31→16:34)
[2017-09-17] MEDS: KETOROLAC TROMETHAMINE 15 MG/ML VIAL IV PRN ×4 (00:31→23:38)
[2017-09-17] MEDS: OXYCODONE HCL IR 5 MG TAB (IMMEDIATE RELEASE) PO PRN ×3 (04:22→16:36)
[2017-09-17 04:47] LABS: BASO % 0.3 %; BASO ABS # 0.02 K/uL (0-0.2); EOS % 5.1 %; EOS ABS # 0.41 K/uL (0-0.5); HEMATOCRIT 36.9 % (42-52); IG# 0.02 K/uL (0.00-0.02); LYMPH % 16.8 %; LYMPH ABS # 1.34 K/uL (1.2-3.4); MEAN CELL VOLUME 82.7 fL (80-100); MEAN CORPUSCULAR HEMOGLOBIN 26.9 pg (25-34); MEAN CORPUSCULAR HGB CONC 32.5 g/dl (32-36); MEAN PLATELET VOLUME 9.5 fL (7.4-10.4); MONO % 12.8 %; MONO ABS # 1.02 K/uL (0.11-0.59); NEUT % 64.7 %; NEUT ABS # 5.17 K/uL (1.4-6.5); PLATELET COUNT 115 K/uL (130-400); RED CELL DISTRIBUTION WIDTH CV 14.9 % (11.5-14.5); RED CELL DISTRIBUTION WIDTH SD 45.6 fL (36.4-46.3); WHITE BLOOD COUNT 7.98 K/uL (4.8-10.8)
[2017-09-17 05:06] LABS: CALCIUM 7.4 mg/dl (8.5-10.1); CREATININE 1.07 mg/dl (0.60-1.40); POTASSIUM 3.4 mmol/L (3.5-5.1)
[2017-09-17] MEDS: CEFEPIME IV 2,000 MG in SYRINGE 7.5 ML IV SCH ×3 (06:01→21:43)
[2017-09-17] MEDS: SODIUM CHLORIDE 0.9% 1000ML 1,000 ML IV SCH ×2 (06:01→16:36)
[2017-09-17] MEDS: ACETAMINOPHEN 325 MG TAB PO PRN ×2 (06:25→21:55)
[2017-09-17] MEDS: DOCUSATE SODIUM 100 MG CAP PO SCH ×2 (07:38→21:43)
[2017-09-17] MEDS: SENNA 8.6 MG TAB PO SCH (07:38)
[2017-09-17] MEDS: MAGNESIUM OXIDE 400 MG TAB PO SCH ×2 (07:38→21:43)
[2017-09-17] MEDS ORDERED: POTASSIUM CHLORIDE 10 MEQ TABCR PO ONE (08:07)
--- NOTE | 2017-09-17 10:17 | Progress Note ---
Medicine Progress Note Date & Time of Visit: Sep 17, 2017 at 10:10. Subjective Positive continuous fever overnight Discussed with Dr. Lawson yesterday, agreed to add ertapenem IV for broader coverage This morning patient seen at the bed oriented 3 not in distress States he feels about the same Denies any rectal bleeding or pain or changes in bowel movement No pain on the Muller catheter site No other symptoms Objective Last 8 Hrs Date Time Temp Pulse Resp B/P (MAP) Pulse Ox O2 Delivery O2 Flow Rate FiO2 09/17/17 08:00 Room Air 09/17/17 07:45 38.2 101 28 113/83 (93) 93 Room Air 09/17/17 06:22 38.6 09/17/17 04:00 Room Air 09/17/17 03:40 37.9 90 18 132/74 (93) 94 Physical Exam: General-oriented 3 not in distress speaking sentences no accessory muscle use Eyes- anicteric Neck- no JVD Lungs- clear to breath sounds BL no rales or wheezes Catheter site with no surrounding edema erythema warmth tenderness; benign Heart- regular rhythm; no murmur, normal rate Abdomen- normal bowel sounds, soft, nontender, Extremities- no pretibial edema, no calf tenderness; peripheral pulses intact Left upper arm surgical scar well-healed no erythema warmth tenderness Neuro- alert, oriented x 3; no gross focal motor or sensory deficits Skin- warm & dry Laboratory Results: Last 24 Hours Test 09/17/17 04:20 White Blood Count 7.98 K/uL Red Blood Count 4.46 M/uL Hemoglobin 12.0 g/dL Hematocrit 36.9 % Mean Corpuscular Volume 82.7 fL Mean Corpuscular Hemoglobin 26.9 pg Mean Corpuscular Hemoglobin Concent 32.5 g/dl Platelet Count 115 K/uL Mean Platelet Volume 9.5 fL Neutrophils (%) (Auto) 64.7 % Lymphocytes (%) (Auto) 16.8 % Monocytes (%) (Auto) 12.8 % Eosinophils (%) (Auto) 5.1 % Basophils (%) (Auto) 0.3 % Neutrophils # (Auto) 5.17 K/uL Lymphocytes # (Auto) 1.34 K/uL Monocytes # (Auto) 1.02 K/uL Eosinophils # (Auto) 0.41 K/uL Basophils # (Auto) 0.02 K/uL RDW Standard Deviation 45.6 fL RDW Coefficient of Variation 14.9 % Immature Granulocyte % (Auto) 0.3 % Immature Granulocyte # (Auto) 0.02 K/uL Sodium Level 136 mmol/L Potassium Level 3.4 mmol/L Chloride Level 106 mmol/L Carbon Dioxide Level 24 mmol/L Anion Gap 6.0 mmol/L Blood Urea Nitrogen 10 mg/dl Creatinine 1.07 mg/dl Est Creatinine Clear Calc Drug Dose 109.0 ml/min Estimated GFR () 100.8 Estimated GFR (Non- 87.0 BUN/Creatinine Ratio 9.7 Random Glucose 95 mg/dl Calcium Level 7.4 mg/dl Magnesium Level 1.9 mg/dl Assessment & Plan This is a 41 year old M with recurrent right shoulder infections and multiple right shoulder surgeries who last admitted to [facility] in June 2017 with right shoulder abscess that had incision drainage by orthopedics with vancomycin and gentamicin beads placed and subsequent would cultures of grew MRSA and patient subsequently discharged on daptomycin IV, who presents with sepsis and right shoulder pain SEPSIS secondary to BACTEREMIA-Enterococcus cloacae, gram-positive cocci risk factor: recent rectal surgery for fistula repair 2 weeks ago; presence of Muller catheter CT abdomen and pelvis no focus of infection CT upper extremity no signs of abscess MRI of upper extremity no signs of abscess/osteo Blood cultures September 15: Enterococcus cloacae sensitive to cefepime and ertapenem Blood cultures September 16: Gram-positive cocci Echo * -- Conclusions -- * The left ventricle is normal in size. * There is normal left ventricular wall thickness. * The left ventricular wall motion is normal. * Left ventricular systolic function is normal. * Ejection Fraction = 65-70%. * No valvular abnormalities are visualized * There is no pericardial effusion. Still with fevers of 38, blood pressure stable Lactic acid normalized Continue: Daptomycin IV Day 3 Cefepime day 3 Ertapenem day [address] Lawson, appreciate recommendations patient has a muller catheter that was placed 1 year and 8 months ago, will discuss with ID if these needs to be removed Continue IV fluids RECURRENT RIGHT SHOULDER INFECTION CT upper extremity no infection MRI upper extremity no infection Orthopedic service consulted no plans for surgical intervention HISTORY OF ANAL FISTULAS CT abdomen pelvis no acute process Denies any symptoms of rectal bleeding, pain, change in bowel movement ACUTE RENAL FAILURE Resolved Likely from sepsis possibly prerenal etiology Continue IV normal saline solution PAIN MANAGEMENT Avoid IV narcotics in the setting of sepsis to prevent hypotension Oxycodone immediate release every 6 hours as needed for pain Toradol as needed Ofirmev IV 650 q. 8 as needed Disposition: Pending Anticipate discharge to home when medically stable cleared by ID may need prolonged IV antibiotics Full Code contact numbers: [phone], father [phone] Current Inpatient Medications: Current Inpatient Medications Medications (Trade) Dose Ordered Sig/Diane Route Start Time Stop Time Status Last Admin Dose Admin Sodium Chloride 1,000 ml @ 100 mls/hr Q10H IV 09/15/17 08:00 10/15/17 07:59 09/17/17 06:01 100 MLS/HR Acetaminophen (Tylenol Tab) 650 mg Q4H PRN PO 09/15/17 06:30 10/15/17 06:29 09/17/17 06:25 650 MG Senna (Senokot Tab) 8.6 mg QAM PO 09/15/17 09:00 10/15/17 08:59 09/15/17 09:29 8.6 MG Docusate Sodium (coLACE CAP) 100 mg BID PO 09/15/17 09:00 10/15/17 08:59 09/15/17 09:29 100 MG Diphenhydramine HCl (Benadryl Inj) 12.5 mg Q8H PRN IV 09/15/17 06:30 10/15/17 06:29 09/17/17 07:38 12.5 MG Ondansetron HCl (Zofran Inj) 4 mg Q6H PRN IV 09/15/17 07:00 10/15/17 06:59 09/16/17 01:47 4 MG Cefepime HCl 2000 mg/Syringe 20 ml @ 5 mls/min Q8H IV 09/15/17 14:00 10/27/17 13:59 09/17/17 06:01 5 MLS/MIN Oxycodone HCl (Roxicodone Immediate Rel Tab) 10 mg Q6H PRN PO 09/15/17 09:15 09/29/17 09:14 09/17/17 04:22 10 MG Acetaminophen 650 mg/Empty Bag 65 ml @ 260 mls/hr Q8H PRN IV 09/15/17 09:30 10/15/17 09:29 09/16/17 06:09 260 MLS/HR Daptomycin 575 mg/ Syringe 11.5 ml @ 5.75 mls/ min Q24H IV 09/15/17 10:30 09/25/17 10:29 09/16/17 10:50 5.75 MLS/MIN Magnesium Oxide (Mag-Ox Tab) 400 mg BID PO 09/16/17 21:00 10/16/17 20:59 09/17/17 07:38 400 MG Ketorolac Tromethamine (Toradol Inj) 15 mg Q6H PRN IV 09/16/17 17:45 09/21/17 17:44 09/17/17 07:37 15 MG Ertapenem (Consult) 1 ea UD PRN N/A 09/16/17 19:15 10/16/17 19:14 Daptomycin (Consult) 1 ea UD PRN N/A 09/15/17 19:15 10/15/17 19:14 Ertapenem 1000 mg/ Sodium Chloride 60 ml @ 100 mls/hr Q24H IV 09/16/17 20:00 09/30/17 19:59 09/16/17 20:10 100 MLS/HR
[2017-09-17] MEDS: DAPTOmycin IV 575 MG in SYRINGE 0 ML IV SCH (10:19)
--- NOTE | 2017-09-17 11:28 | Progress Note ---
Subjective Date of Service: Sep 17, 2017. Subjective pt remains with fever. ertapenem was added last night due to h/p proteus infection. Initial blood cultures (port and perph) growing Enterobacter. repeat blood cultures done yesterday, port culture growing gpc. remains on emperic broad spectrum abx. wbc improved. TTE negative. Pt is lying in bed with covers over head. refuses to remove covers or answer questions on my exam. Problem List Medical Problems: (1) Abscess of right arm Status: Acute (2) Cellulitis of shoulder Status: Acute (3) Cellulitis of shoulder Status: Acute (4) Fever Status: Acute (5) Hypokalemia Status: Acute (6) Hypotension Status: Acute (7) Infection of shoulder Status: Acute (8) Right arm cellulitis Status: Acute (9) Sepsis Status: Acute (10) Sepsis Status: Acute (11) Sepsis Status: Acute (12) Septic arthritis of shoulder, right Status: Acute (13) Septic joint of right shoulder region Status: Acute (14) Shoulder pain Status: Acute Objective Vital Signs Date Time Temp Pulse Resp B/P (MAP) Pulse Ox O2 Delivery O2 Flow Rate FiO2 09/17/17 08:00 Room Air 09/17/17 07:45 38.2 101 28 113/83 (93) 93 Room Air 09/17/17 06:22 38.6 09/17/17 04:00 Room Air 09/17/17 03:40 37.9 90 18 132/74 (93) 94 09/17/17 01:08 38.0 09/17/17 00:01 38.5 81 18 126/74 (91) 95 Room Air 09/16/17 23:59 Room Air 09/16/17 20:00 Room Air 09/16/17 19:50 37.8 85 20 145/69 (94) 96 Room Air 09/16/17 17:26 38.5 09/16/17 17:17 39.1 09/16/17 16:00 96 Room Air 09/16/17 15:20 38.8 111 26 125/93 (104) 96 Room Air 09/16/17 12:00 37.8 84 24 135/84 (101) 96 Room Air 09/16/17 12:00 Room Air Physical Exam Comments: unable to perform exam due to pt not removing covers from over his head Laboratory Results Item Value Date Time Blood Culture - Preliminary Resulted 09/16/17 0858 Blood Gram Positive Cocci Blood Culture - Final Complete 09/15/17 0153 Blood Enterobacter Cloacae Blood Culture - Final Complete 09/15/17 0115 Blood Enterobacter Cloacae Last 24 Hours Test 09/17/17 04:20 White Blood Count 7.98 K/uL Red Blood Count 4.46 M/uL Hemoglobin 12.0 g/dL Hematocrit 36.9 % Mean Corpuscular Volume 82.7 fL Mean Corpuscular Hemoglobin 26.9 pg Mean Corpuscular Hemoglobin Concent 32.5 g/dl Platelet Count 115 K/uL Mean Platelet Volume 9.5 fL Neutrophils (%) (Auto) 64.7 % Lymphocytes (%) (Auto) 16.8 % Monocytes (%) (Auto) 12.8 % Eosinophils (%) (Auto) 5.1 % Basophils (%) (Auto) 0.3 % Neutrophils # (Auto) 5.17 K/uL Lymphocytes # (Auto) 1.34 K/uL Monocytes # (Auto) 1.02 K/uL Eosinophils # (Auto) 0.41 K/uL Basophils # (Auto) 0.02 K/uL RDW Standard Deviation 45.6 fL RDW Coefficient of Variation 14.9 % Immature Granulocyte % (Auto) 0.3 % Immature Granulocyte # (Auto) 0.02 K/uL Sodium Level 136 mmol/L Potassium Level 3.4 mmol/L Chloride Level 106 mmol/L Carbon Dioxide Level 24 mmol/L Anion Gap 6.0 mmol/L Blood Urea Nitrogen 10 mg/dl Creatinine 1.07 mg/dl Est Creatinine Clear Calc Drug Dose 109.0 ml/min Estimated GFR () 100.8 Estimated GFR (Non- 87.0 BUN/Creatinine Ratio 9.7 Random Glucose 95 mg/dl Calcium Level 7.4 mg/dl Magnesium Level 1.9 mg/dl Assessment and Plan (1) Sepsis Assessment & Plan: multiple potential sources for recurrent infection. multiple organisms growing from port site. will continue abx and follow culture results. repeat cultures x 2 today - port and perph. may require removal of port. shoulder MRI negative for collection.
[2017-09-17] MEDS: ERTAPENEM IV 1,000 MG in SODIUM CHLORIDE 0.9% 50ML 50 ML IV SCH (21:42)
[2017-09-17] MEDS ORDERED: ACETAMINOPHEN IV 1,000 MG in EMPTY BAG 0 ML IV STA (23:34)
[2017-09-17] MEDS ORDERED: ACETAMINOPHEN IV 100 ML IV PRN (23:45)
[2017-09-18] VITALS (8 sets, daily range): BP systolic 104–156; BP diastolic 69–111; PULSE 72–94; TEMP 36.8–38.8; O2SAT 92–96
[2017-09-18 00:21] LABS: BASO % 0.3 %; BASO ABS # 0.02 K/uL (0-0.2); EOS % 2.4 %; EOS ABS # 0.18 K/uL (0-0.5); HEMATOCRIT 36.6 % (42-52); IG# 0.01 K/uL (0.00-0.02); LYMPH % 12.1 %; LYMPH ABS # 0.91 K/uL (1.2-3.4); MEAN CELL VOLUME 81.7 fL (80-100); MEAN CORPUSCULAR HEMOGLOBIN 26.8 pg (25-34); MEAN PLATELET VOLUME 9.5 fL (7.4-10.4); MONO % 11.7 %; MONO ABS # 0.88 K/uL (0.11-0.59); NEUT % 73.4 %; NEUT ABS # 5.55 K/uL (1.4-6.5); PLATELET COUNT 134 K/uL (130-400); RED CELL DISTRIBUTION WIDTH CV 14.6 % (11.5-14.5); RED CELL DISTRIBUTION WIDTH SD 43.8 fL (36.4-46.3); WHITE BLOOD COUNT 7.55 K/uL (4.8-10.8)
[2017-09-18 00:31] LABS: MEAN CORPUSCULAR HGB CONC 32.8 g/dl (32-36)
[2017-09-18] MEDS: DiphenhydrAMINE HCL 50 MG/ML VIAL IV PRN ×3 (00:42→20:59)
[2017-09-18] MEDS: ONDANSETRON INJ 2 MG/ML 2 ML VIAL IV PRN (00:42)
[2017-09-18] MEDS: SODIUM CHLORIDE 0.9% 1000ML 1,000 ML IV SCH ×3 (00:42→20:58)
[2017-09-18 00:52] LABS: ALBUMIN 2.6 gm/dl (3.4-5.0); CALCIUM 7.8 mg/dl (8.5-10.1); POTASSIUM 3.3 mmol/L (3.5-5.1); TOTAL PROTEIN 6.7 gm/dl (6.4-8.2)
[2017-09-18] MEDS ORDERED: POTASSIUM CHLORIDE 20 MEQ TABCR PO STA (01:01)
[2017-09-18] MEDS: CEFEPIME IV 2,000 MG in SYRINGE 7.5 ML IV SCH ×3 (06:47→21:10)
[2017-09-18] MEDS: KETOROLAC TROMETHAMINE 15 MG/ML VIAL IV PRN ×2 (08:21→20:59)
[2017-09-18] MEDS: DOCUSATE SODIUM 100 MG CAP PO SCH ×2 (08:22→20:59)
[2017-09-18] MEDS: MAGNESIUM OXIDE 400 MG TAB PO SCH ×2 (08:22→20:59)
[2017-09-18] MEDS: DAPTOmycin IV 650 MG in SYRINGE 0 ML IV SCH (08:23)
[2017-09-18] MEDS: SENNA 8.6 MG TAB PO SCH (08:23)
[2017-09-18] MEDS: OXYCODONE HCL IR 5 MG TAB (IMMEDIATE RELEASE) PO PRN ×2 (11:07→23:07)
--- NOTE | 2017-09-18 11:37 | Progress Note ---
Subjective Date of Service: Sep 18, 2017. Subjective pt now with multiple cultures with gpc. initial blood cultures with Enterobacter. now with strep species from port. still with fevers. wbc improved. tolerating abx. on multiple abx. Echo negative on admission. Problem List Medical Problems: (1) Abscess of right arm Status: Acute (2) Cellulitis of shoulder Status: Acute (3) Cellulitis of shoulder Status: Acute (4) Fever Status: Acute (5) Hypokalemia Status: Acute (6) Hypotension Status: Acute (7) Infection of shoulder Status: Acute (8) Right arm cellulitis Status: Acute (9) Sepsis Status: Acute (10) Sepsis Status: Acute (11) Sepsis Status: Acute (12) Septic arthritis of shoulder, right Status: Acute (13) Septic joint of right shoulder region Status: Acute (14) Shoulder pain Status: Acute Objective Vital Signs Date Time Temp Pulse Resp B/P (MAP) Pulse Ox O2 Delivery O2 Flow Rate FiO2 09/18/17 08:00 37.2 79 20 118/81 (93) 96 Room Air 09/18/17 07:30 Room Air 09/18/17 04:30 36.8 72 18 104/69 (81) 96 Room Air 09/18/17 04:00 Room Air 09/18/17 00:00 Room Air 09/17/17 23:55 39.5 96 18 120/88 (99) 96 09/17/17 23:17 39.3 09/17/17 21:51 39.5 09/17/17 20:00 Room Air 09/17/17 19:57 38.8 104 20 145/83 (103) 97 Room Air 09/17/17 16:09 36.9 88 20 162/96 (118) 94 09/17/17 16:00 94 Room Air 09/17/17 12:10 39.2 100 28 152/115 (127) 98 Room Air 09/17/17 12:00 Room Air Laboratory Results Item Value Date Time Blood Culture - Preliminary Resulted 09/16/17 0858 Blood Streptococcus Species Blood Culture - Preliminary Resulted 09/16/17 0831 Blood NO GROWTH TO DATE. Blood Culture - Final Complete 09/15/17 0115 Blood Enterobacter Cloacae Blood Culture - Preliminary Resulted 09/16/17 0858 Blood Streptococcus Species Blood Culture - Preliminary Resulted 3/26/18 1152 Blood Gram Positive Cocci Last 24 Hours Test 09/18/17 00:08 White Blood Count 7.55 K/uL Red Blood Count 4.48 M/uL Hemoglobin 12.0 g/dL Hematocrit 36.6 % Mean Corpuscular Volume 81.7 fL Mean Corpuscular Hemoglobin 26.8 pg Mean Corpuscular Hemoglobin Concent 32.8 g/dl Platelet Count 134 K/uL Mean Platelet Volume 9.5 fL Neutrophils (%) (Auto) 73.4 % Lymphocytes (%) (Auto) 12.1 % Monocytes (%) (Auto) 11.7 % Eosinophils (%) (Auto) 2.4 % Basophils (%) (Auto) 0.3 % Neutrophils # (Auto) 5.55 K/uL Lymphocytes # (Auto) 0.91 K/uL Monocytes # (Auto) 0.88 K/uL Eosinophils # (Auto) 0.18 K/uL Basophils # (Auto) 0.02 K/uL RDW Standard Deviation 43.8 fL RDW Coefficient of Variation 14.6 % Immature Granulocyte % (Auto) 0.1 % Immature Granulocyte # (Auto) 0.01 K/uL Erythrocyte Sedimentation Rate 26 mm/hr Sodium Level 135 mmol/L Potassium Level 3.3 mmol/L Chloride Level 104 mmol/L Carbon Dioxide Level 24 mmol/L Anion Gap 7.0 mmol/L Blood Urea Nitrogen 10 mg/dl Creatinine 1.00 mg/dl Est Creatinine Clear Calc Drug Dose 115.8 ml/min Estimated GFR () 109.4 Estimated GFR (Non- 94.4 BUN/Creatinine Ratio 10.1 Random Glucose 106 mg/dl Lactic Acid Level 0.9 mmol/L Calcium Level 7.8 mg/dl Total Bilirubin 0.5 mg/dl Aspartate Amino Transf (AST/SGOT) 23 U/L Alanine Aminotransferase (ALT/SGPT) 35 U/L Alkaline Phosphatase 91 U/L C-Reactive Protein 10.40 mg/dl Total Protein 6.7 gm/dl Albumin 2.6 gm/dl Globulin 4.1 gm/dl Albumin/Globulin Ratio 0.6 Assessment and Plan (1) Sepsis Assessment & Plan: concerned for infected port with multiple cultures +, will repeat today. would consider SACHIN. continue abx. would consider surgery eval re: concern for port infection.
[2017-09-18] MEDS ORDERED: MoRPHine SULFATE 2 MG/ML CARP IV ONE (14:45)
--- NOTE | 2017-09-18 15:03 | Progress Note ---
Medicine Progress Note Date & Time of Visit: Sep 18, 2017 at 14:36. Subjective Pt was seen and examined Lying in bed with no distress Pt said that he continue to have pain in his right shoulder Pt said that today is the first day since Sunday that he does not have a fever. Pt said that he had the Patten catheter placed for almost [address] Elias Denies any chest pain, palpitation, dizziness and SOB Objective Last 8 Hrs Date Time Temp Pulse Resp B/P (MAP) Pulse Ox O2 Delivery O2 Flow Rate FiO2 09/18/17 12:00 37.3 79 22 125/111 (116) 94 Room Air 09/18/17 11:30 Room Air 09/18/17 08:00 37.2 79 20 118/81 (93) 96 Room Air 09/18/17 07:30 Room Air Physical Exam: General- No acute distress Head- atraumatic Eyes- PERRL, EOMI ENT- oropharynx clear Neck- supple, no JVD Lungs- No wheezing Heart- regular rhythm Abdomen- normal bowel sounds, soft Extremities- no pretibial edema, right shoulder tenderness Neuro- alert, oriented x 3; PERRL, EOMI; no facial palsy Skin- warm & dry Laboratory Results: Last 24 Hours Test 09/18/17 00:08 White Blood Count 7.55 K/uL Red Blood Count 4.48 M/uL Hemoglobin 12.0 g/dL Hematocrit 36.6 % Mean Corpuscular Volume 81.7 fL Mean Corpuscular Hemoglobin 26.8 pg Mean Corpuscular Hemoglobin Concent 32.8 g/dl Platelet Count 134 K/uL Mean Platelet Volume 9.5 fL Neutrophils (%) (Auto) 73.4 % Lymphocytes (%) (Auto) 12.1 % Monocytes (%) (Auto) 11.7 % Eosinophils (%) (Auto) 2.4 % Basophils (%) (Auto) 0.3 % Neutrophils # (Auto) 5.55 K/uL Lymphocytes # (Auto) 0.91 K/uL Monocytes # (Auto) 0.88 K/uL Eosinophils # (Auto) 0.18 K/uL Basophils # (Auto) 0.02 K/uL RDW Standard Deviation 43.8 fL RDW Coefficient of Variation 14.6 % Immature Granulocyte % (Auto) 0.1 % Immature Granulocyte # (Auto) 0.01 K/uL Erythrocyte Sedimentation Rate 26 mm/hr Sodium Level 135 mmol/L Potassium Level 3.3 mmol/L Chloride Level 104 mmol/L Carbon Dioxide Level 24 mmol/L Anion Gap 7.0 mmol/L Blood Urea Nitrogen 10 mg/dl Creatinine 1.00 mg/dl Est Creatinine Clear Calc Drug Dose 115.8 ml/min Estimated GFR () 109.4 Estimated GFR (Non- 94.4 BUN/Creatinine Ratio 10.1 Random Glucose 106 mg/dl Lactic Acid Level 0.9 mmol/L Calcium Level 7.8 mg/dl Total Bilirubin 0.5 mg/dl Aspartate Amino Transf (AST/SGOT) 23 U/L Alanine Aminotransferase (ALT/SGPT) 35 U/L Alkaline Phosphatase 91 U/L C-Reactive Protein 10.40 mg/dl Total Protein 6.7 gm/dl Albumin 2.6 gm/dl Globulin 4.1 gm/dl Albumin/Globulin Ratio 0.6 Date/Time Source Procedure Growth Status 09/18/17 12:25 Blood Blood Culture Pending Received 09/18/17 12:16 Blood Blood Culture Pending Received Assessment & Plan This is a 41 year old M with recurrent right shoulder infections and multiple right shoulder surgeries who last admitted to [facility] in June 2017 with right shoulder abscess that had incision drainage by orthopedics with vancomycin and gentamicin beads placed and subsequent would cultures of grew MRSA and patient subsequently discharged on daptomycin IV, who presents with sepsis and right shoulder pain SEPSIS Meet sepsis criteria on admission with elevated WBC, tachycardia, febrile and elevated lactic acid Related to BACTEREMIA-Enterococcus cloacae (09/15) Repeat blood cx grew strep cocci (09/16) Repeat blood grew gram positive cocci (09/17) Patten catheter placed about 1yr and 8 months ago No drainage or erythema around the surrounding area of the catheter Afebrile today, Lactic acid and wbc normalized Will consult vascular for possible catheter removal CT abdomen and pelvis no focus of infection CT upper extremity no signs of abscess MRI of upper extremity no signs of abscess/osteo Blood cx collected today ID on board Continue Daptomycin IV Day 4, Cefepime day 4, Ertapenem day 3 Consider SACHIN ( Will discuss with Cardiology) Echo done. * -- Conclusions -- * The left ventricle is normal in size. * There is normal left ventricular wall thickness. * The left ventricular wall motion is normal. * Left ventricular systolic function is normal. * Ejection Fraction = 65-70%. * No valvular abnormalities are visualized * There is no pericardial effusion. RECURRENT RIGHT SHOULDER INFECTION CT upper extremity no infection MRI upper extremity no infection Orthopedic service consulted no plans for surgical intervention F/U w/ Dr Byrd as outpatient in 2-3 weeks HISTORY OF ANAL FISTULAS CT abdomen pelvis no acute process Denies any symptoms of rectal bleeding, pain, change in bowel movement Stable HYPOKALEMIA K 3.3 K replaced monitor BMP ACUTE RENAL FAILURE Likely from sepsis possibly prerenal etiology Creatine WNL Will decrease NS. PAIN MANAGEMENT Continue to have pain Oxycodone immediate release every 6 hours as needed for pain Toradol as needed Ofirmev IV 650 q. 8 as needed Cill give morphinex1 Disposition Anticipate discharge to home when medically stable cleared by ID may need prolonged IV antibiotics Current Inpatient Medications: Current Inpatient Medications Medications (Trade) Dose Ordered Sig/Diane Route Start Time Stop Time Status Last Admin Dose Admin Sodium Chloride 1,000 ml @ 100 mls/hr Q10H IV 09/15/17 08:00 10/15/17 07:59 09/18/17 11:02 100 MLS/HR Acetaminophen (Tylenol Tab) 650 mg Q4H PRN PO 09/15/17 06:30 10/15/17 06:29 09/17/17 21:55 650 MG Senna (Senokot Tab) 8.6 mg QAM PO 09/15/17 09:00 10/15/17 08:59 09/18/17 08:23 8.6 MG Docusate Sodium (coLACE CAP) 100 mg BID PO 09/15/17 09:00 10/15/17 08:59 09/18/17 08:22 100 MG Diphenhydramine HCl (Benadryl Inj) 12.5 mg Q8H PRN IV 09/15/17 06:30 10/15/17 06:29 09/18/17 08:23 12.5 MG Ondansetron HCl (Zofran Inj) 4 mg Q6H PRN IV 09/15/17 07:00 10/15/17 06:59 09/18/17 00:42 4 MG Cefepime HCl 2000 mg/Syringe 20 ml @ 5 mls/min Q8H IV 09/15/17 14:00 10/27/17 13:59 09/18/17 14:26 5 MLS/MIN Oxycodone HCl (Roxicodone Immediate Rel Tab) 10 mg Q6H PRN PO 09/15/17 09:15 09/29/17 09:14 09/18/17 11:07 10 MG Magnesium Oxide (Mag-Ox Tab) 400 mg BID PO 09/16/17 21:00 10/16/17 20:59 09/18/17 08:22 400 MG Ketorolac Tromethamine (Toradol Inj) 15 mg Q6H PRN IV 09/16/17 17:45 09/21/17 17:44 09/18/17 08:21 15 MG Ertapenem (Consult) 1 ea UD PRN N/A 09/16/17 19:15 10/16/17 19:14 Daptomycin (Consult) 1 ea UD PRN N/A 09/15/17 19:15 10/15/17 19:14 Ertapenem 1000 mg/ Sodium Chloride 60 ml @ 100 mls/hr Q24H IV 09/16/17 20:00 09/30/17 19:59 09/17/17 21:42 100 MLS/HR Daptomycin 650 mg/ Syringe 13 ml @ 5.75 mls/ min DAILY@0900 IV 09/18/17 09:00 09/28/17 08:59 09/18/17 08:23 5.75 MLS/MIN Acetaminophen 100 ml @ 400 mls/hr Q8H PRN IV 09/17/17 23:45 10/17/17 23:44
[2017-09-18] MEDS: ERTAPENEM IV 1,000 MG in SODIUM CHLORIDE 0.9% 50ML 50 ML IV SCH (21:09)
[2017-09-19] VITALS (9 sets, daily range): BP systolic 113–147; BP diastolic 67–90; PULSE 65–83; TEMP 37–37.4; O2SAT 92–97
[2017-09-19] MEDS: DiphenhydrAMINE HCL 50 MG/ML VIAL IV PRN ×2 (05:21→19:30)
[2017-09-19] MEDS: KETOROLAC TROMETHAMINE 15 MG/ML VIAL IV PRN ×2 (05:22→19:30)
[2017-09-19] MEDS: CEFEPIME IV 2,000 MG in SYRINGE 7.5 ML IV SCH ×3 (05:26→22:00)
[2017-09-19 06:34] LABS: BASO % 0.7 %; BASO ABS # 0.05 K/uL (0-0.2); EOS % 6.8 %; HEMATOCRIT 34.5 % (42-52); HEMOGLOBIN 11.5 g/dL (14.0-18.0); IG# 0.03 K/uL (0.00-0.02); LYMPH % 22.4 %; LYMPH ABS # 1.64 K/uL (1.2-3.4); MEAN CELL VOLUME 81.4 fL (80-100); MEAN CORPUSCULAR HEMOGLOBIN 27.1 pg (25-34); MEAN CORPUSCULAR HGB CONC 33.3 g/dl (32-36); MEAN PLATELET VOLUME 9.5 fL (7.4-10.4); MONO % 12.3 %; NEUT % 57.4 %; NEUT ABS # 4.21 K/uL (1.4-6.5); PLATELET COUNT 164 K/uL (130-400); RED CELL DISTRIBUTION WIDTH CV 14.7 % (11.5-14.5); RED CELL DISTRIBUTION WIDTH SD 43.5 fL (36.4-46.3); WHITE BLOOD COUNT 7.33 K/uL (4.8-10.8)
[2017-09-19 07:06] LABS: CALCIUM 7.6 mg/dl (8.5-10.1); CREATININE 0.87 mg/dl (0.60-1.40); POTASSIUM 3.6 mmol/L (3.5-5.1)
[2017-09-19] MEDS: DOCUSATE SODIUM 100 MG CAP PO SCH ×2 (08:08→21:00)
[2017-09-19] MEDS: DAPTOmycin IV 650 MG in SYRINGE 0 ML IV SCH (08:08)
[2017-09-19] MEDS: SODIUM CHLORIDE 0.9% 1000ML 1,000 ML IV SCH ×2 (08:08→14:27)
[2017-09-19] MEDS: MAGNESIUM OXIDE 400 MG TAB PO SCH ×2 (08:09→21:00)
[2017-09-19] MEDS: SENNA 8.6 MG TAB PO SCH (08:09)
--- NOTE | 2017-09-19 08:53 | Medical Consult ---
Consultation Note Date of Service Sep 19, 2017. 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 Pt states he was febrile, but is beginning to feel slightly better , but still very fatigued and mildly nauseated. Pt denies any other medical problems besides his chronic pain in R shoulder. Pt denies [place], fever now, chills, chest pain, SOB, abd pain, vomiting, rest pain, claudication, other complaints. Pt's blood cx + for multiple organisms. Allergies Coded Allergies: Iodinated Diagnostic Agents (Verified Allergy, Severe, anaphylaxis, ) Prednisone (Verified Allergy, Severe, HIVES, 12/22/15) Levofloxacin (Verified Allergy, Intermediate, RASH, 12/22/15) Patient received Levaquin during a previous admission (2013) but now has a rash with current administration of IV Levaquin Ciprofloxacin (Verified Allergy, Mild, RASH, 12/22/15) Morphine (Verified Allergy, Unknown, hives, 12/22/15) Vancomycin (Verified Adverse Reaction, Unknown, ITCHING, 12/22/15) Home Medications Scheduled Amoxicillin & Pot Clavulanate (Augmentin 875-125 mg), 1 TAB PO BID Gabapentin (Neurontin), 600 MG PO TID Oxycodone Hcl (Oxycontin (Ext Rel)), 80 MG PO Q12 Scheduled PRN Acetaminophen (Tylenol), 500 MG PO TID PRN PRN for Pain Ibuprofen Tab (Motrin), 800 MG PO Q8H PRN PRN for Pain Oxycodone Hcl (Oxycodone Hcl), 20 MG PO EVERY 4 TO 6 HOURS PRN PRN for Pain Problem List Medical Problems: (1) Abscess of perineum (2) Cellulitis of shoulder (3) SIRS (systemic inflammatory response syndrome) Surgical Problems: (1) H/O shoulder surgery Surgical / Medical History Hx Cardiac Surgery: No Hx Abdominal Surgery: No Hx Cancer Surgery: No Hx Thoracic Surgery: No Hx Orthopedic: Yes (right shoulder) Hx Urinary Tract Surgery: No HX Other Surgery: Yes (rectal abscess X3) Family History Cancer Diabetes mellitus Heart disease Hypertension Social History Smoking Status: Current Every Day Smoker Hx Tobacco Use In Past Year?: Yes Hx Alcohol Use - Type & Amnt: No Hx Substance Use -Type & Amnt: No Review of Systems Constitutional: + fever (previous, resolved), No chills Skin: No change in color Eyes: No visual changes ENMT: No sore throat Respiratory: No GARCIA, No cough, No hemoptysis, No short of breath Cardiovascular: + edema, No chest pain, No chest pressure, No intermittent claudication, No palpitations Gastrointestinal: + diarrhea, + nausea, No abdominal pain, No constipation, No vomiting Neurologic: No dizziness, No headache, No numbness, No tingling Physical Exam Constitutional: General Apperance: well-nourished, well-developed, obese Level of Distress: NAD, acutely ill, chronically ill Psychiatric: Mental Status: active & alert Orientation: oriented except where noted, to time, to place, to person Memory: recent memory normal, remote memory normal Head: normocephalic, atraumatic Eyes: EOM: EOMI ENMT: normal ENT inspection, hearing grossly normal Neck: supple, trachea midline Lungs: Respiratory effort: no dyspnea Auscultation: breath sounds normal, no wheezing, no rales/crackles, no rhonchi Cardiovascular: Apical Impulse: not displaced Heart Auscultation: RRR, no murmurs, no rubs, no gallops Peripheral Pulses: Pulses: full and equal, in all extremities except if noted Bruits: none appreciated Carotid Pulse: normal on the left, normal on the right Brachial Pulses: normal on the left, normal on the right Radial Pulse: normal on the left, normal on the right Femoral Pulse: normal on the left, normal on the right Posterior Tibialis Pulse: normal on the left, normal on the right Dorsalis Pedis Pulse: normal on the left, normal on the right Abdomen: Bowel Sounds: normal Inspection & Palpation: soft, non-distended, no tenderness, guarding & rebound Musculoskeletal: normal strength (5/5 throughout), normal tone Extremities: Upper Right: no cyanosis, no varicosities, edema (+1) Upper Left: no cyanosis, no edema, no varicosities Lower Right: no cyanosis, no edema, no varicosities, no palpable cord Lower Left: no cyanosis, no edema, no varicosities, no palpable cord Neurologic: Cranial Nerves: grossly intact Sensation: grossly intact Assessment and Plan ASSESSMENT and PLAN: Infected muller catheter Sepsis, bacteremia Pt for muller catheter removal later this AM. Pt agreeable. Can replace muller catheter in future if needed. To use peripherals in meantime.
--- NOTE | 2017-09-19 10:54 | Progress Note ---
Subjective Date of Service: Sep 19, 2017. Subjective Pt evaluation today including: conversation w/ patient, physical exam, chart review, lab review pt seen in followup, still with fevers but improved overall. 09/18 cultures pending. 09/16 and 09/17 cultures from port both with strep species, perph cultures from same day ngtd. for surgical eval today and likely port removal. still with shoulder pain, unchanged from chronic. tolerating abx. all remaining ros reviewed and are negative. Problem List Medical Problems: (1) Abscess of right arm Status: Acute (2) Cellulitis of shoulder Status: Acute (3) Cellulitis of shoulder Status: Acute (4) Fever Status: Acute (5) Hypokalemia Status: Acute (6) Hypotension Status: Acute (7) Infection of shoulder Status: Acute (8) Right arm cellulitis Status: Acute (9) Sepsis Status: Acute (10) Sepsis Status: Acute (11) Sepsis Status: Acute (12) Septic arthritis of shoulder, right Status: Acute (13) Septic joint of right shoulder region Status: Acute (14) Shoulder pain Status: Acute Objective Vital Signs Date Time Temp Pulse Resp B/P (MAP) Pulse Ox O2 Delivery O2 Flow Rate FiO2 09/19/17 08:00 Room Air 09/19/17 07:47 37.1 83 16 113/67 (82) 92 Room Air 09/19/17 04:00 Room Air 09/19/17 03:53 37.4 73 124/74 (91) 92 Room Air 09/18/17 23:59 Room Air 09/18/17 23:08 37.6 82 17 153/94 (113) 92 Room Air 09/18/17 22:04 37.6 09/18/17 20:52 38.5 09/18/17 20:07 38.8 94 20 156/90 (112) 94 Room Air 09/18/17 20:00 Room Air 09/18/17 16:01 37.8 90 20 153/107 (122) 94 09/18/17 16:00 Room Air 09/18/17 12:00 37.3 79 22 125/111 (116) 94 Room Air 09/18/17 11:30 Room Air Physical Exam General Appearance: WD/WN, no apparent distress Eyes: normal inspection, EOMI Neck: supple Respiratory/Chest: lungs clear Cardiovascular: regular rate, rhythm, no edema, no murmur Abdomen: non tender, soft Extremities: non-tender, no pedal edema Neurologic/Psychiatric: alert, oriented x 3 Skin: normal color Comments: right shoulder incision closed, no warmth, erythema. Laboratory Results Item Value Date Time Blood Culture - Preliminary Resulted 09/17/17 1152 Blood Gram Positive Cocci Blood Culture - Preliminary Resulted 09/16/17 0858 Blood Streptococcus Species Blood Culture - Final Complete 09/15/17 0153 Blood Enterobacter Cloacae Blood Culture - Final Complete 09/15/17 0115 Blood Enterobacter Cloacae Blood Culture - Preliminary Resulted 09/16/17 0831 Blood NO GROWTH TO DATE. Blood Culture - Preliminary Resulted 09/17/17 1206 Blood NO GROWTH TO DATE. Last 24 Hours Test 09/19/17 06:10 White Blood Count 7.33 K/uL Red Blood Count 4.24 M/uL Hemoglobin 11.5 g/dL Hematocrit 34.5 % Mean Corpuscular Volume 81.4 fL Mean Corpuscular Hemoglobin 27.1 pg Mean Corpuscular Hemoglobin Concent 33.3 g/dl Platelet Count 164 K/uL Mean Platelet Volume 9.5 fL Neutrophils (%) (Auto) 57.4 % Lymphocytes (%) (Auto) 22.4 % Monocytes (%) (Auto) 12.3 % Eosinophils (%) (Auto) 6.8 % Basophils (%) (Auto) 0.7 % Neutrophils # (Auto) 4.21 K/uL Lymphocytes # (Auto) 1.64 K/uL Monocytes # (Auto) 0.90 K/uL Eosinophils # (Auto) 0.50 K/uL Basophils # (Auto) 0.05 K/uL RDW Standard Deviation 43.5 fL RDW Coefficient of Variation 14.7 % Immature Granulocyte % (Auto) 0.4 % Immature Granulocyte # (Auto) 0.03 K/uL Sodium Level 138 mmol/L Potassium Level 3.6 mmol/L Chloride Level 107 mmol/L Carbon Dioxide Level 26 mmol/L Anion Gap 6.0 mmol/L Blood Urea Nitrogen 9 mg/dl Creatinine 0.87 mg/dl Est Creatinine Clear Calc Drug Dose 132.4 ml/min Estimated GFR () 126.0 Estimated GFR (Non- 108.7 BUN/Creatinine Ratio 10.3 Random Glucose 93 mg/dl Calcium Level 7.6 mg/dl Assessment and Plan (1) Sepsis Assessment & Plan: concerned for infected port with multiple cultures +, follow repeat cultures. if port removed, please culture. would consider SACHIN. continue abx.
--- NOTE | 2017-09-19 11:44 | Cardiology Consultation ---
Cardiology Consultation Date of Consultation: Sep 19, 2017 Requesting Physician: Dr. Wolff Attending Trainman: Dr. Mckeon (Khushbu Benavides PA-C) History of Present Illness Patient is a 41 year old male who was admitted for sepsis with positive blood cultures. Chart reviewed in detail. History reviewed. Patient not evaluated. Cardiology consultation was requested due to consideration for SACHIN. Patient was hospitalized several months ago for abscess of his right shoulder. He has a history of recurrent right shoulder infections, requiring I&D wiht orthopedics and repeated doses of IV antibiotic therapy. he had a Patten catheter placed, right chest, 1.5 years ago. Apparently he gives himself his antibiotics through the port. Unfortunately he was readmitted earlier this week for sepsis, blood cultures positive. CT revealed no infectious process at right shoulder. Suspected line infection. ID consulted. On broad spectrum antibiotics. WBC normalized. He has been febrile throughout hospital course, until yesterday. He had 2D echo earlier this week to evaluate valvular heart disease and r/o endocarditis. Echo report reviewed, demonstrating normal LV funciton. No valvular heart disease. No lesions or masses noted to suggest endocarditis. (Khushbu Benavides PA-C) Past Medical/Surgical History Problem List: Medical Problems: (1) Anal fistula (2) Cellulitis of shoulder (3) Direct infection of right shoulder in infectious and parasitic diseases classified elsewhere (4) History of MRSA infection (5) Peripheral neuropathy (6) Right shoulder pain (7) Sepsis (8) Staph infection Surgical Problems: (1) H/O shoulder surgery (2) History of dental surgery (3) S/p closure of anal fissure (4) S/p kidney stone removal (5) S/p placement of Patten catheter (6) Status post debridement (Khushbu Benavides PA-C) Family History Cancer Diabetes mellitus Heart disease Hypertension (Khushbu Benavides PA-C) Cancer Diabetes mellitus Heart disease Hypertension (Evan Mckeon M.D.) Social History Smoking Status: Never Smoker Drug Use: none Marital Status: Housing Status: lives with significant other Occupation: employed (Khushbu Benavides PA-C) Review Of Systems Patient not evaluated. Not performed. (Khushbu Benavides PA-C) Allergies Coded Allergies: Iodinated Diagnostic Agents (Verified Allergy, Severe, anaphylaxis, ) Levofloxacin (Verified Allergy, Intermediate, RASH, 12/13/16) Patient received Levaquin during a previous admission (2013) but now has a rash with current administration of IV Levaquin Ciprofloxacin (Verified Allergy, Mild, RASH, 12/13/16) Morphine (Verified Allergy, Unknown, hives, 12/13/16) Medications Reported Home Medications Medications Dose Route/Sig Max Daily Dose Days Date Category Dose Instructions Oxycodone HCl 5 Mg Tab 10 Mg PO Q6H PRN 07/11/17 Rx 2 pills (10 mg) every 6 hrs as needed for severe pain. Daptomycin 500 Mg Inj 400 Mg IV DAILY 34 07/10/17 Rx Tentative stop date 08/14/17. Stop date to be confirmed by ID. (Khushbu Benavides PA-C) Physical Exam Vital Signs (Last 8hrs): Last 8 Hrs Date Time Temp Pulse Resp B/P (MAP) Pulse Ox O2 Delivery O2 Flow Rate FiO2 09/19/17 08:00 Room Air 09/19/17 07:47 37.1 83 16 113/67 (82) 92 Room Air 09/19/17 04:00 Room Air 09/19/17 03:53 37.4 73 124/74 (91) 92 Room Air No physical exam performed. Chart review only (Khushbu Benavides PA-C) Data Last 24 Hours Test 09/19/17 06:10 White Blood Count 7.33 K/uL Red Blood Count 4.24 M/uL Hemoglobin 11.5 g/dL Hematocrit 34.5 % Mean Corpuscular Volume 81.4 fL Mean Corpuscular Hemoglobin 27.1 pg Mean Corpuscular Hemoglobin Concent 33.3 g/dl Platelet Count 164 K/uL Mean Platelet Volume 9.5 fL Neutrophils (%) (Auto) 57.4 % Lymphocytes (%) (Auto) 22.4 % Monocytes (%) (Auto) 12.3 % Eosinophils (%) (Auto) 6.8 % Basophils (%) (Auto) 0.7 % Neutrophils # (Auto) 4.21 K/uL Lymphocytes # (Auto) 1.64 K/uL Monocytes # (Auto) 0.90 K/uL Eosinophils # (Auto) 0.50 K/uL Basophils # (Auto) 0.05 K/uL RDW Standard Deviation 43.5 fL RDW Coefficient of Variation 14.7 % Immature Granulocyte % (Auto) 0.4 % Immature Granulocyte # (Auto) 0.03 K/uL Sodium Level 138 mmol/L Potassium Level 3.6 mmol/L Chloride Level 107 mmol/L Carbon Dioxide Level 26 mmol/L Anion Gap 6.0 mmol/L Blood Urea Nitrogen 9 mg/dl Creatinine 0.87 mg/dl Est Creatinine Clear Calc Drug Dose 132.4 ml/min Estimated GFR () 126.0 Estimated GFR (Non- 108.7 BUN/Creatinine Ratio 10.3 Random Glucose 93 mg/dl Calcium Level 7.6 mg/dl Imaging: Echo preformed this admission, report reviewed: * -- Conclusions -- * The left ventricle is normal in size. * There is normal left ventricular wall thickness. * Left ventricular systolic function is normal. * The left ventricular wall motion is normal. * Ejection Fraction = 55-60%. * The left atrium is moderately dilated. * There is moderate mitral regurgitation. * There is mild tricuspid regurgitation. Upper extremity MRI reviewed: IMPRESSION: 1. Degenerative change of the glenohumeral joint with evidence for postoperative changes to the soft tissues lateral to the humerus. 2. The previously described complex fluid collections on the prior study of 2017 have resolved. 3. Minimal residual edematous and/or infiltrative changes of the subcutaneous fat lateral to the deltoid. 4. No evidence for abscess or collection. 5. No evidence for osteomyelitis. (Khushbu Benavides PA-C) Assessment & Plan 1. Acute Sepsis with history of recurrent right shoulder infections/abscesses, chronic Patten Port catheter in right chest 2. Normal Echo - no valvular disease. No evidence of endocarditis. Good imaging quality. Case discussed with Dr. Mckeon. At this time, patient has a long history of underlying infectious processes within the right shoulder and possible port catheter infection. He will require at least 4 weeks of IV antibiotic therapy. No indication to proceed wiht SACHIN at this time, as the results would not change the plan of care. Recommend at least 4 weeks of IV antibiotic therapy. There was no valvular disease on the resting 2D echo to suggest endocarditis. . (Khushbu Benavides, DEVANC) Cardiology assessment and plan as noted above. No current indications for transesophageal echocardiogram that would change comes or management. Echocardiogram was personally reviewed with no valvular disease of concern. Extended antibiotic therapy indicated due to underlying medical surgical issues Evan Mckeon MD (Evan Mckeon M.D.)
[2017-09-19] MEDS ORDERED: LIDOCAINE HCL 1% 20 ML VIAL ONE (13:08)
--- NOTE | 2017-09-19 13:18 | Pre Sedation Assessment ---
Pre Sedation Assessment General Date of Sedation: Sep 19, 2017. Vital Signs Past 12 Hours Date Time Temp Pulse Resp B/P (MAP) Pulse Ox O2 Delivery O2 Flow Rate FiO2 09/19/17 12:00 Room Air 09/19/17 11:53 37.2 74 16 119/80 (93) 95 09/19/17 08:00 Room Air 09/19/17 07:47 37.1 83 16 113/67 (82) 92 Room Air 09/19/17 04:00 Room Air 09/19/17 03:53 37.4 73 124/74 (91) 92 Room Air Review Cardiovascular: regular rate, rhythm Lungs: lungs clear Pre-Sedation Airway Assessment Smoking Status: Never Smoker Hx of Sleep Apnea: No Short Thick Neck: No Thyro-mental Distance: > 3 Finger Breadths Oral Cavity: WNL Mallampati Classification: Class II ASA Classification: Class II NPO Status Date of Last Intake of Fluids: Sep 19, 2017 Time of Last Intake of Fluids: 0001 Date of Last Intake of Solids: Sep 19, 2017 Time of Last Intake of Solids: 2017 Procedure Planning Contraindications for Sedation: None Current Medications Reviewed: Yes Notes The planned sedation has been discussed with the patient. Informed Consent was obtained. I have identified the patient, determined the appropriateness of sedation and have assessed the patient immediately prior to the procedure. All medicine(s) and interventions are by my order.
[2017-09-19] MEDS ORDERED: FENTANYL CITRATE INJ 50 MCG/1 ML 2 ML VIAL ONE (13:28)
[2017-09-19] MEDS ORDERED: MIDAZOLAM HCL 1 MG/ML 2ML VIAL ONE ×2 (13:28→13:42)
[2017-09-19] MEDS ORDERED: MIDAZOLAM HCL 1 MG/ML 2ML VIAL IV ONE ×2 (13:32→13:43)
[2017-09-19] MEDS ORDERED: FENTANYL CITRATE INJ 50 MCG/1 ML 2 ML VIAL IV ONE (13:32)
[2017-09-19] MEDS ORDERED: LIDOCAINE HCL 1% 20 ML VIAL INJ ONE (13:33)
--- NOTE | 2017-09-19 13:59 | [facility] Operative Report ---
Operative Report Operative Date Sep 19, 2017. Pre-Operative Diagnosis bacteremia Post-Operative Diagnosis bacteremia Procedure(s) Performed Removal Of Muller Catheter, Moderate Concious Sedation [address] Ewing Marine Fire Fighter Surgeon(s) Torie Luo MD Estimated Blood Loss 5 ml Findings Well incorporated cuff of catheter, who catheter including cuff removed. Specimens A. explanted mluler catheter microbiology: muller catheter tip sent to lab for routine culture and sensitivity Drains None Anesthesia Type IV Sedat Cons RN Only Complication(s) none Disposition Indications 41 y/o male with muller catheter that was placed in June of 2015 who presents with bacteremia, concern for infected catheter. It was recommended that he undergo removal of the catheter. He was advised of the risks an benefits of the above procedure and agreed to undergo removal. Description of Procedure The patient was taken to the angio suite and placed in the supine position. The right side of the neck, chest wall and catheter were prepped and draped in a sterile manner. Local anesthesia was then accomplished. Using sharp and blunt dissection, the cuff of the Muller was freed up from the surrounding fibrous tissue.The cuff was well incorporated and a counter incision was made in the upper chest, the Muller was pulled through this incision from the neck. The cuff was then freed up with sharp and blunt dissection. The Muller catheter and cuff were completely removed. Pressure was then applied and adequate hemostasis was obtained. The tip of the Muller was sent for culture. A sterile dressing was then applied. The patient left the angio suite in good condition and tolerated the procedure well. I, Dr. Ewing was present and scrubbed for the entire procedure. I attest to the content of the Intraoperative Record and any orders documented therein. Any exceptions are noted below.
--- NOTE | 2017-09-19 13:59 | [facility] Post Operative Brief Note ---
Immediate Operative Summary Operative Date Sep 19, 2017. Pre-Operative Diagnosis bacteremia Post-Operative Diagnosis bacteremia Procedure(s) Performed Removal Of Muller Catheter, Moderate Concious Sedation [address] Ewing Family Service Caseworker Surgeon(s) Torie Luo MD Estimated Blood Loss 5 ml Findings Consistent with Post-Op Diagnosis Specimens A. explanted muller catheter microbiology: muller catheter tip sent to lab for routine culture and sensitivity Drains None Anesthesia Type IV Sedat Cons RN Only Complication(s) none Disposition Accompanied Pt To Recover: no Disposition:
[2017-09-19] MEDS: OXYCODONE HCL IR 5 MG TAB (IMMEDIATE RELEASE) PO PRN ×2 (17:18→22:33)
[2017-09-19] MEDS: ERTAPENEM IV 1,000 MG in SODIUM CHLORIDE 0.9% 50ML 50 ML IV SCH (20:00)
--- NOTE | 2017-09-19 23:48 | Progress Note ---
Medicine Progress Note Date & Time of Visit: Sep 19, 2017 at 13:47. Subjective Pt was seen and examined Lying in bed with no distress Pt just had the Ptaten cath removed He said that he is having tenderness at the incision site Has been afebrile Denies any chest pain, fever palpitation and SOB Objective Last 8 Hrs Date Time Temp Pulse Resp B/P (MAP) Pulse Ox O2 Delivery O2 Flow Rate FiO2 09/19/17 16:45 37.2 78 18 133/89 (104) 97 Room Air 09/19/17 16:10 66 18 128/69 (88) 94 Room Air 09/19/17 16:00 Room Air Physical Exam: General- No acute distress Head- atraumatic Eyes- PERRL, EOMI ENT- oropharynx clear Neck- supple, no JVD Lungs- No wheezing Heart- regular rhythm Abdomen- normal bowel sounds, soft Extremities- no pretibial edema, right shoulder tenderness Neuro- alert, oriented x 3; PERRL, EOMI; no facial palsy Skin- warm & dry Laboratory Results: Last 24 Hours Test 09/19/17 06:10 White Blood Count 7.33 K/uL Red Blood Count 4.24 M/uL Hemoglobin 11.5 g/dL Hematocrit 34.5 % Mean Corpuscular Volume 81.4 fL Mean Corpuscular Hemoglobin 27.1 pg Mean Corpuscular Hemoglobin Concent 33.3 g/dl Platelet Count 164 K/uL Mean Platelet Volume 9.5 fL Neutrophils (%) (Auto) 57.4 % Lymphocytes (%) (Auto) 22.4 % Monocytes (%) (Auto) 12.3 % Eosinophils (%) (Auto) 6.8 % Basophils (%) (Auto) 0.7 % Neutrophils # (Auto) 4.21 K/uL Lymphocytes # (Auto) 1.64 K/uL Monocytes # (Auto) 0.90 K/uL Eosinophils # (Auto) 0.50 K/uL Basophils # (Auto) 0.05 K/uL RDW Standard Deviation 43.5 fL RDW Coefficient of Variation 14.7 % Immature Granulocyte % (Auto) 0.4 % Immature Granulocyte # (Auto) 0.03 K/uL Sodium Level 138 mmol/L Potassium Level 3.6 mmol/L Chloride Level 107 mmol/L Carbon Dioxide Level 26 mmol/L Anion Gap 6.0 mmol/L Blood Urea Nitrogen 9 mg/dl Creatinine 0.87 mg/dl Est Creatinine Clear Calc Drug Dose 132.4 ml/min Estimated GFR () 126.0 Estimated GFR (Non- 108.7 BUN/Creatinine Ratio 10.3 Random Glucose 93 mg/dl Calcium Level 7.6 mg/dl Date/Time Source Procedure Growth Status 09/19/17 13:58 Catheter Tip Central Venous Pressure Line Catheter Tip Culture Pending Received Assessment & Plan This is a 41 year old M with recurrent right shoulder infections and multiple right shoulder surgeries who last admitted to [facility] in June 2017 with right shoulder abscess that had incision drainage by orthopedics with vancomycin and gentamicin beads placed and subsequent would cultures of grew MRSA and patient subsequently discharged on daptomycin IV, who presents with sepsis and right shoulder pain SEPSIS Meet sepsis criteria on admission with elevated WBC, tachycardia, febrile and elevated lactic acid Related to BACTEREMIA-Enterococcus cloacae (09/15) Repeat blood cx grew strep cocci (09/16) Repeat blood grew gram positive cocci (09/17) Patten catheter placed about 1yr and 8 months ago No drainage or erythema around the surrounding area of the catheter Afebrile today, Lactic acid and wbc normalized Will consult vascular for possible catheter removal CT abdomen and pelvis no focus of infection CT upper extremity no signs of abscess MRI of upper extremity no signs of abscess/osteo Blood cx collected today ID on board Continue Daptomycin IV Day 4, Cefepime day 4, Ertapenem day 3 Patten cath removed Echo done. * -- Conclusions -- * The left ventricle is normal in size. * There is normal left ventricular wall thickness. * The left ventricular wall motion is normal. * Left ventricular systolic function is normal. * Ejection Fraction = 65-70%. * No valvular abnormalities are visualized * There is no pericardial effusion. RECURRENT RIGHT SHOULDER INFECTION CT upper extremity no infection MRI upper extremity no infection Orthopedic service consulted no plans for surgical intervention F/U w/ Dr Byrd as outpatient in 2-3 weeks HISTORY OF ANAL FISTULAS CT abdomen pelvis no acute process Denies any symptoms of rectal bleeding, pain, change in bowel movement Stable HYPOKALEMIA K 3.6 monitor BMP stable ACUTE RENAL FAILURE Likely from sepsis possibly prerenal etiology Creatine WNL Will d/c IVF PAIN MANAGEMENT Continue to have pain Oxycodone immediate release every 6 hours as needed for pain Toradol as needed Ofirmev IV 650 q. 8 as needed Will give morphinex1 Disposition Anticipate discharge to home when medically stable cleared by ID may need prolonged IV antibiotics Current Inpatient Medications: Current Inpatient Medications Medications (Trade) Dose Ordered Sig/Diane Route Start Time Stop Time Status Last Admin Dose Admin Sodium Chloride 1,000 ml @ 100 mls/hr Q10H IV 09/15/17 08:00 10/15/17 07:59 09/19/17 14:27 100 MLS/HR Acetaminophen (Tylenol Tab) 650 mg Q4H PRN PO 09/15/17 06:30 10/15/17 06:29 09/17/17 21:55 650 MG Senna (Senokot Tab) 8.6 mg QAM PO 09/15/17 09:00 10/15/17 08:59 09/18/17 08:23 8.6 MG Docusate Sodium (coLACE CAP) 100 mg BID PO 09/15/17 09:00 10/15/17 08:59 09/18/17 08:22 100 MG Diphenhydramine HCl (Benadryl Inj) 12.5 mg Q8H PRN IV 09/15/17 06:30 10/15/17 06:29 09/19/17 05:21 12.5 MG Ondansetron HCl (Zofran Inj) 4 mg Q6H PRN IV 09/15/17 07:00 10/15/17 06:59 09/18/17 00:42 4 MG Cefepime HCl 2000 mg/Syringe 20 ml @ 5 mls/min Q8H IV 09/15/17 14:00 10/27/17 13:59 09/19/17 22:00 5 MLS/MIN Oxycodone HCl (Roxicodone Immediate Rel Tab) 10 mg Q6H PRN PO 09/15/17 09:15 09/29/17 09:14 09/19/17 17:18 10 MG Magnesium Oxide (Mag-Ox Tab) 400 mg BID PO 09/16/17 21:00 10/16/17 20:59 09/19/17 21:00 400 MG Ketorolac Tromethamine (Toradol Inj) 15 mg Q6H PRN IV 09/16/17 17:45 09/21/17 17:44 09/19/17 05:22 15 MG Ertapenem (Consult) 1 ea UD PRN N/A 09/16/17 19:15 10/16/17 19:14 Daptomycin (Consult) 1 ea UD PRN N/A 09/15/17 19:15 10/15/17 19:14 Ertapenem 1000 mg/ Sodium Chloride 60 ml @ 100 mls/hr Q24H IV 09/16/17 20:00 09/30/17 19:59 09/19/17 20:00 100 MLS/HR Daptomycin 650 mg/ Syringe 13 ml @ 5.75 mls/ min DAILY@0900 IV 09/18/17 09:00 09/28/17 08:59 09/19/17 08:08 5.75 MLS/MIN Acetaminophen 100 ml @ 400 mls/hr Q8H PRN IV 09/17/17 23:45 10/17/17 23:44
[2017-09-20] VITALS (7 sets, daily range): BP systolic 115–140; BP diastolic 71–96; PULSE 68–83; TEMP 36.6–37.5; O2SAT 93–97
[2017-09-20] MEDS: SODIUM CHLORIDE 0.9% 1000ML 1,000 ML IV SCH ×2 (00:39→11:39)
[2017-09-20] MEDS: OXYCODONE HCL IR 5 MG TAB (IMMEDIATE RELEASE) PO PRN ×2 (00:40→17:14)
[2017-09-20] MEDS: KETOROLAC TROMETHAMINE 15 MG/ML VIAL IV PRN ×3 (04:04→20:09)
[2017-09-20] MEDS: DiphenhydrAMINE HCL 50 MG/ML VIAL IV PRN ×3 (04:04→20:08)
[2017-09-20 05:59] LABS: BASO % 0.7 %; BASO ABS # 0.05 K/uL (0-0.2); EOS % 6.3 %; EOS ABS # 0.48 K/uL (0-0.5); HEMATOCRIT 34.9 % (42-52); HEMOGLOBIN 11.6 g/dL (14.0-18.0); IG# 0.04 K/uL (0.00-0.02); LYMPH % 30.3 %; MEAN CELL VOLUME 81.2 fL (80-100); MEAN CORPUSCULAR HGB CONC 33.2 g/dl (32-36); MEAN PLATELET VOLUME 9.9 fL (7.4-10.4); MONO % 7.1 %; MONO ABS # 0.54 K/uL (0.11-0.59); NEUT % 55.1 %; NEUT ABS # 4.17 K/uL (1.4-6.5); PLATELET COUNT 199 K/uL (130-400); RED CELL DISTRIBUTION WIDTH CV 14.5 % (11.5-14.5); WHITE BLOOD COUNT 7.58 K/uL (4.8-10.8)
[2017-09-20] MEDS: CEFEPIME IV 2,000 MG in SYRINGE 7.5 ML IV SCH (06:17)
[2017-09-20 06:33] LABS: CALCIUM 7.9 mg/dl (8.5-10.1); CREATININE 0.93 mg/dl (0.60-1.40); POTASSIUM 3.1 mmol/L (3.5-5.1)
[2017-09-20] MEDS: DAPTOmycin IV 650 MG in SYRINGE 0 ML IV SCH (08:10)
[2017-09-20] MEDS: SENNA 8.6 MG TAB PO SCH (08:11)
[2017-09-20] MEDS: DOCUSATE SODIUM 100 MG CAP PO SCH ×2 (08:11→20:23)
[2017-09-20] MEDS: MAGNESIUM OXIDE 400 MG TAB PO SCH ×2 (08:11→20:23)
[2017-09-20] MEDS ORDERED: POTASSIUM CHLORIDE 20 MEQ TABCR PO ONE (09:30)
--- NOTE | 2017-09-20 10:09 | Progress Note ---
Subjective Date of Service: Sep 20, 2017. Subjective Pt evaluation today including: conversation w/ patient, physical exam, chart review, lab review Patient seen in follow-up exam. He did undergo port removal yesterday. He does have tenderness around the site. There is also some erythema no drainage. He has been afebrile since time. His cultures from the 18 September are no growth to date x2 sets. His previous cultures from the and are growing a strep species which is yet to be identified. He remains on broad- spectrum antibiotics with daptomycin cefepime and ertapenem His catheter tip is pending. His initial blood cultures are growing enterobacter. His repeat cultures have grown this. His white blood cell count is normal today at 7.5. He continues to complain pain in his shoulder which is unchanged. He now has a peripheral IV in place. He is tolerating antibiotics well. He denies any fevers or chills. His appetite is stable. He has no abdominal pain nausea vomiting or diarrhea. His remaining review of systems is reviewed and unremarkable. Problem List Medical Problems: (1) Abscess of right arm Status: Acute (2) Cellulitis of shoulder Status: Acute (3) Cellulitis of shoulder Status: Acute (4) Fever Status: Acute (5) Hypokalemia Status: Acute (6) Hypotension Status: Acute (7) Infection of shoulder Status: Acute (8) Right arm cellulitis Status: Acute (9) Sepsis Status: Acute (10) Sepsis Status: Acute (11) Sepsis Status: Acute (12) Septic arthritis of shoulder, right Status: Acute (13) Septic joint of right shoulder region Status: Acute (14) Shoulder pain Status: Acute Objective Vital Signs Date Time Temp Pulse Resp B/P (MAP) Pulse Ox O2 Delivery O2 Flow Rate FiO2 09/20/17 08:00 93 Room Air 4.0 09/20/17 07:49 37.1 83 18 127/71 (89) 93 Room Air 09/20/17 06:03 37.5 80 18 140/96 (111) 94 Room Air 09/20/17 04:00 Room Air 09/20/17 00:09 37.3 76 15 115/71 (86) 95 Room Air 09/20/17 00:01 Room Air 09/19/17 16:45 37.2 78 18 133/89 (104) 97 Room Air 09/19/17 16:10 66 18 128/69 (88) 94 Room Air 09/19/17 16:00 Room Air 09/19/17 15:46 37.0 66 22 137/90 (106) 94 Room Air 09/19/17 15:10 65 18 147/90 (109) 94 Room Air 09/19/17 14:35 67 18 138/86 (103) 92 Room Air 09/19/17 14:22 68 18 132/82 (99) 93 Room Air 09/19/17 14:02 73 16 143/82 95 Room Air 09/19/17 13:57 Mask 4 09/19/17 13:52 Mask 4 09/19/17 13:47 76 16 140/75 93 Mask 4 09/19/17 13:45 Mask 4 09/19/17 13:40 Mask 4 09/19/17 13:35 Mask 4 09/19/17 13:30 Mask 4 09/19/17 12:00 Room Air 09/19/17 11:53 37.2 74 16 119/80 (93) 95 Physical Exam General Appearance: WD/WN, no apparent distress Eyes: normal inspection, EOMI Neck: supple Respiratory/Chest: lungs clear, normal breath sounds, no respiratory distress Cardiovascular: regular rate, rhythm, no edema, no murmur Abdomen: non tender, soft Extremities: non-tender, no pedal edema Neurologic/Psychiatric: alert, oriented x 3 Skin: normal color Comments: Shoulder incision remains closed there is no warmth or erythema the right shoulder. Right chest port site dressing is clean dry and intact however there is warmth erythema tenderness and edema in the surrounding area. Laboratory Results Last 24 Hours Test 09/20/17 05:35 White Blood Count 7.58 K/uL Red Blood Count 4.30 M/uL Hemoglobin 11.6 g/dL Hematocrit 34.9 % Mean Corpuscular Volume 81.2 fL Mean Corpuscular Hemoglobin 27.0 pg Mean Corpuscular Hemoglobin Concent 33.2 g/dl Platelet Count 199 K/uL Mean Platelet Volume 9.9 fL Neutrophils (%) (Auto) 55.1 % Lymphocytes (%) (Auto) 30.3 % Monocytes (%) (Auto) 7.1 % Eosinophils (%) (Auto) 6.3 % Basophils (%) (Auto) 0.7 % Neutrophils # (Auto) 4.17 K/uL Lymphocytes # (Auto) 2.30 K/uL Monocytes # (Auto) 0.54 K/uL Eosinophils # (Auto) 0.48 K/uL Basophils # (Auto) 0.05 K/uL RDW Standard Deviation 43.0 fL RDW Coefficient of Variation 14.5 % Immature Granulocyte % (Auto) 0.5 % Immature Granulocyte # (Auto) 0.04 K/uL Sodium Level 137 mmol/L Potassium Level 3.1 mmol/L Chloride Level 107 mmol/L Carbon Dioxide Level 23 mmol/L Anion Gap 7.0 mmol/L Blood Urea Nitrogen 11 mg/dl Creatinine 0.93 mg/dl Est Creatinine Clear Calc Drug Dose 123.8 ml/min Estimated GFR () 119.4 Estimated GFR (Non- 103.0 BUN/Creatinine Ratio 12.3 Random Glucose 128 mg/dl Calcium Level 7.9 mg/dl Assessment and Plan (1) Sepsis Assessment & Plan: I he will remain on daptomycin pending final speciation and sensitivity his strep species S cefepime will be discontinued at this time he will remain on ertapenem for his previous enterobacter infection. Overall he is clinically improving. (2) Infected venous access port
--- NOTE | 2017-09-20 18:19 | Progress Note ---
Medicine Progress Note Date & Time of Visit: Sep 20, 2017 at 17:15. Subjective Pt was seen and examined Lying at the edge of the bed eating Continue to be afebrile Continue to have shoulder pain Denies any chest pain, palpitation, dizziness and fever Objective Last 8 Hrs Date Time Temp Pulse Resp B/P (MAP) Pulse Ox O2 Delivery O2 Flow Rate FiO2 09/20/17 15:18 36.6 68 16 126/79 (95) 97 Room Air 09/20/17 11:59 Room Air 09/20/17 11:24 37.1 83 18 93 4.0 Physical Exam: General- No acute distress Head- atraumatic Eyes- PERRL, EOMI ENT- oropharynx clear Neck- supple, no JVD Lungs- No wheezing Heart- regular rhythm Abdomen- normal bowel sounds, soft Extremities- no pretibial edema, right shoulder tenderness Neuro- alert, oriented x 3; PERRL, EOMI; no facial palsy Skin- warm & dry Laboratory Results: Last 24 Hours Test 09/20/17 05:35 White Blood Count 7.58 K/uL Red Blood Count 4.30 M/uL Hemoglobin 11.6 g/dL Hematocrit 34.9 % Mean Corpuscular Volume 81.2 fL Mean Corpuscular Hemoglobin 27.0 pg Mean Corpuscular Hemoglobin Concent 33.2 g/dl Platelet Count 199 K/uL Mean Platelet Volume 9.9 fL Neutrophils (%) (Auto) 55.1 % Lymphocytes (%) (Auto) 30.3 % Monocytes (%) (Auto) 7.1 % Eosinophils (%) (Auto) 6.3 % Basophils (%) (Auto) 0.7 % Neutrophils # (Auto) 4.17 K/uL Lymphocytes # (Auto) 2.30 K/uL Monocytes # (Auto) 0.54 K/uL Eosinophils # (Auto) 0.48 K/uL Basophils # (Auto) 0.05 K/uL RDW Standard Deviation 43.0 fL RDW Coefficient of Variation 14.5 % Immature Granulocyte % (Auto) 0.5 % Immature Granulocyte # (Auto) 0.04 K/uL Sodium Level 137 mmol/L Potassium Level 3.1 mmol/L Chloride Level 107 mmol/L Carbon Dioxide Level 23 mmol/L Anion Gap 7.0 mmol/L Blood Urea Nitrogen 11 mg/dl Creatinine 0.93 mg/dl Est Creatinine Clear Calc Drug Dose 123.8 ml/min Estimated GFR () 119.4 Estimated GFR (Non- 103.0 BUN/Creatinine Ratio 12.3 Random Glucose 128 mg/dl Calcium Level 7.9 mg/dl Assessment & Plan This is a 41 year old M with recurrent right shoulder infections and multiple right shoulder surgeries who last admitted to [facility] in June 2017 with right shoulder abscess that had incision drainage by orthopedics with vancomycin and gentamicin beads placed and subsequent would cultures of grew MRSA and patient subsequently discharged on daptomycin IV, who presents with sepsis and right shoulder pain SEPSIS Meet sepsis criteria on admission with elevated WBC, tachycardia, febrile and elevated lactic acid Related to BACTEREMIA-Enterococcus cloacae (09/15) Repeat blood cx grew strep cocci (09/16) Repeat blood grew gram positive cocci (09/17) Patten catheter placed about 1yr and 8 months ago No drainage or erythema around the surrounding area of the catheter Afebrile today, Lactic acid and wbc normalized Will consult vascular for possible catheter removal CT abdomen and pelvis no focus of infection CT upper extremity no signs of abscess MRI of upper extremity no signs of abscess/osteo Blood cx collected today ID on board 09/20 Patten cath removed and sent for culture, no growth so far ID on board recommended to d/c cefepime Continue Daptomycin IV Day 6 and Ertapenem day 5 Repeat blood cx no growth has been afebrile case discussed with cardio and reviewed echo again. No indication for echo since that will not price changer because pt will be on mcc IV abx Echo done. * -- Conclusions -- * The left ventricle is normal in size. * There is normal left ventricular wall thickness. * The left ventricular wall motion is normal. * Left ventricular systolic function is normal. * Ejection Fraction = 65-70%. * No valvular abnormalities are visualized * There is no pericardial effusion. RECURRENT RIGHT SHOULDER INFECTION CT upper extremity no infection MRI upper extremity no infection Orthopedic service consulted no plans for surgical intervention F/U w/ Dr Byrd as outpatient in 2-3 weeks HISTORY OF ANAL FISTULAS CT abdomen pelvis no acute process Denies any symptoms of rectal bleeding, pain, change in bowel movement Stable HYPOKALEMIA K 3.1 K replaced monitor BMP stable ACUTE RENAL FAILURE Likely from sepsis possibly prerenal etiology Creatine WNL Will d/c IVF PAIN MANAGEMENT Continue to have pain Oxycodone immediate release every 6 hours as needed for pain Toradol as needed Ofirmev IV 650 q. 8 as needed DVT px on SCD CODE STATUS FULL CODE Disposition Anticipate discharge to home when medically stable cleared by ID may need prolonged IV antibiotics Current Inpatient Medications: Current Inpatient Medications Medications (Trade) Dose Ordered Sig/Diane Route Start Time Stop Time Status Last Admin Dose Admin Sodium Chloride 1,000 ml @ 100 mls/hr Q10H IV 09/15/17 08:00 10/15/17 07:59 09/20/17 11:39 100 MLS/HR Acetaminophen (Tylenol Tab) 650 mg Q4H PRN PO 09/15/17 06:30 10/15/17 06:29 09/17/17 21:55 650 MG Senna (Senokot Tab) 8.6 mg QAM PO 09/15/17 09:00 10/15/17 08:59 09/18/17 08:23 8.6 MG Docusate Sodium (coLACE CAP) 100 mg BID PO 09/15/17 09:00 10/15/17 08:59 09/18/17 08:22 100 MG Diphenhydramine HCl (Benadryl Inj) 12.5 mg Q8H PRN IV 09/15/17 06:30 10/15/17 06:29 09/20/17 12:14 12.5 MG Ondansetron HCl (Zofran Inj) 4 mg Q6H PRN IV 09/15/17 07:00 10/15/17 06:59 09/18/17 00:42 4 MG Oxycodone HCl (Roxicodone Immediate Rel Tab) 10 mg Q6H PRN PO 09/15/17 09:15 09/29/17 09:14 09/20/17 17:14 10 MG Magnesium Oxide (Mag-Ox Tab) 400 mg BID PO 09/16/17 21:00 10/16/17 20:59 09/20/17 08:11 400 MG Ketorolac Tromethamine (Toradol Inj) 15 mg Q6H PRN IV 09/16/17 17:45 09/21/17 17:44 09/20/17 12:15 15 MG Ertapenem (Consult) 1 ea UD PRN N/A 09/16/17 19:15 10/16/17 19:14 Daptomycin (Consult) 1 ea UD PRN N/A 09/15/17 19:15 10/15/17 19:14 Ertapenem 1000 mg/ Sodium Chloride 60 ml @ 100 mls/hr Q24H IV 09/16/17 20:00 09/30/17 19:59 09/19/17 20:00 100 MLS/HR Daptomycin 650 mg/ Syringe 13 ml @ 5.75 mls/ min DAILY@0900 IV 09/18/17 09:00 09/28/17 08:59 09/20/17 08:10 5.75 MLS/MIN Acetaminophen 100 ml @ 400 mls/hr Q8H PRN IV 09/17/17 23:45 10/17/17 23:44
[2017-09-20] MEDS: ERTAPENEM IV 1,000 MG in SODIUM CHLORIDE 0.9% 50ML 50 ML IV SCH (20:01)
[2017-09-21] MEDS: OXYCODONE HCL IR 5 MG TAB (IMMEDIATE RELEASE) PO PRN ×2 (00:03→21:41)
[2017-09-21 07:18] VITALS: BP 113/69; PULSE 77; TEMP 37; O2SAT 96
[2017-09-21 08:30] LABS: BASO % 0.5 %; BASO ABS # 0.04 K/uL (0-0.2); EOS % 5.5 %; EOS ABS # 0.41 K/uL (0-0.5); HEMOGLOBIN 12.5 g/dL (14.0-18.0); IG# 0.04 K/uL (0.00-0.02); LYMPH % 26.3 %; LYMPH ABS # 1.97 K/uL (1.2-3.4); MEAN CELL VOLUME 80.9 fL (80-100); MEAN CORPUSCULAR HEMOGLOBIN 26.6 pg (25-34); MEAN CORPUSCULAR HGB CONC 32.9 g/dl (32-36); MEAN PLATELET VOLUME 9.5 fL (7.4-10.4); MONO % 9.5 %; MONO ABS # 0.71 K/uL (0.11-0.59); NEUT % 57.7 %; NEUT ABS # 4.33 K/uL (1.4-6.5); PLATELET COUNT 227 K/uL (130-400); RED CELL DISTRIBUTION WIDTH CV 14.6 % (11.5-14.5); RED CELL DISTRIBUTION WIDTH SD 42.7 fL (36.4-46.3)
[2017-09-21 08:59] LABS: CALCIUM 7.9 mg/dl (8.5-10.1); CREATININE 0.87 mg/dl (0.60-1.40); POTASSIUM 3.8 mmol/L (3.5-5.1)
[2017-09-21] MEDS: DOCUSATE SODIUM 100 MG CAP PO SCH ×2 (09:00→20:07)
[2017-09-21] MEDS: SENNA 8.6 MG TAB PO SCH (09:00)
[2017-09-21] MEDS: DAPTOmycin IV 650 MG in SYRINGE 0 ML IV SCH (09:18)
[2017-09-21] MEDS: KETOROLAC TROMETHAMINE 15 MG/ML VIAL IV PRN ×2 (09:20→16:04)
[2017-09-21] MEDS: DiphenhydrAMINE HCL 50 MG/ML VIAL IV PRN ×2 (09:21→20:15)
[2017-09-21] MEDS: MAGNESIUM OXIDE 400 MG TAB PO SCH ×2 (11:00→20:09)
--- NOTE | 2017-09-21 11:39 | Progress Note ---
Subjective Date of Service: Sep 21, 2017. Subjective Pt evaluation today including: conversation w/ patient, physical exam, chart review, lab review pt seen in followup, tolerating abx. repeat cultures remain negative. has been afebrile > 24 hours. muller site less tender today. tolerating abx. gpc now identified as Abiotrophia species, no sensitivities to follow. no pain in shoulder today. no cp, sob. no abd pain, no n/v/d. all remaining ros reviewed and are negative. Problem List Medical Problems: (1) Abscess of right arm Status: Acute (2) Cellulitis of shoulder Status: Acute (3) Cellulitis of shoulder Status: Acute (4) Fever Status: Acute (5) Hypokalemia Status: Acute (6) Hypotension Status: Acute (7) Infection of shoulder Status: Acute (8) Right arm cellulitis Status: Acute (9) Sepsis Status: Acute (10) Sepsis Status: Acute (11) Sepsis Status: Acute (12) Septic arthritis of shoulder, right Status: Acute (13) Septic joint of right shoulder region Status: Acute (14) Shoulder pain Status: Acute Objective Vital Signs Date Time Temp Pulse Resp B/P (MAP) Pulse Ox O2 Delivery O2 Flow Rate FiO2 09/21/17 08:00 Room Air 09/21/17 07:18 37.0 77 15 113/69 (84) 96 Room Air 09/21/17 00:05 Room Air 09/20/17 23:11 37.1 74 18 123/74 (90) 95 Room Air 09/20/17 16:40 Room Air 09/20/17 15:18 36.6 68 16 126/79 (95) 97 Room Air 09/20/17 11:59 Room Air Physical Exam General Appearance: WD/WN, no apparent distress Eyes: normal inspection, EOMI Neck: supple Respiratory/Chest: lungs clear, normal breath sounds, no respiratory distress Cardiovascular: regular rate, rhythm, no edema Abdomen: non tender, soft Extremities: non-tender, no pedal edema Neurologic/Psychiatric: alert, oriented x 3 Skin: normal color Laboratory Results Item Value Date Time Blood Culture - Preliminary Resulted 09/17/17 1152 Blood Gram Positive Cocci Blood Culture - Final Complete 09/16/17 0858 Blood Abiotrophia Species Blood Culture - Final Complete 09/15/17 0153 Blood Enterobacter Cloacae Blood Culture - Final Complete 09/15/17 0115 Blood Enterobacter Cloacae Catheter Tip Culture - Preliminary Resulted 09/19/17 1358 Catheter Tip Central Venous Pressure Line NO GROWTH TO DATE. Blood Culture - Preliminary Resulted 09/18/17 1216 Blood NO GROWTH TO DATE. Blood Culture - Preliminary Resulted 09/18/17 1225 Blood NO GROWTH TO DATE. Last 24 Hours Test 09/21/17 08:16 White Blood Count 7.50 K/uL Red Blood Count 4.70 M/uL Hemoglobin 12.5 g/dL Hematocrit 38.0 % Mean Corpuscular Volume 80.9 fL Mean Corpuscular Hemoglobin 26.6 pg Mean Corpuscular Hemoglobin Concent 32.9 g/dl Platelet Count 227 K/uL Mean Platelet Volume 9.5 fL Neutrophils (%) (Auto) 57.7 % Lymphocytes (%) (Auto) 26.3 % Monocytes (%) (Auto) 9.5 % Eosinophils (%) (Auto) 5.5 % Basophils (%) (Auto) 0.5 % Neutrophils # (Auto) 4.33 K/uL Lymphocytes # (Auto) 1.97 K/uL Monocytes # (Auto) 0.71 K/uL Eosinophils # (Auto) 0.41 K/uL Basophils # (Auto) 0.04 K/uL RDW Standard Deviation 42.7 fL RDW Coefficient of Variation 14.6 % Immature Granulocyte % (Auto) 0.5 % Immature Granulocyte # (Auto) 0.04 K/uL Sodium Level 137 mmol/L Potassium Level 3.8 mmol/L Chloride Level 106 mmol/L Carbon Dioxide Level 27 mmol/L Anion Gap 4.0 mmol/L Blood Urea Nitrogen 12 mg/dl Creatinine 0.87 mg/dl Est Creatinine Clear Calc Drug Dose 132.3 ml/min Estimated GFR () 126.0 Estimated GFR (Non- 108.7 BUN/Creatinine Ratio 14.2 Random Glucose 93 mg/dl Calcium Level 7.9 mg/dl Assessment and Plan (1) Sepsis Assessment & Plan: will continue with ertapenem, 2 weeks total. will change dapto to vanco and follow level maintain 15-20. will need weekly cbc,cmp. will need access, discussed with case management. will need 14 days vanco. (2) Infected venous access port
[2017-09-21] MEDS ORDERED: VANCOMYCIN CONSULT ACTIVE PRN (11:45)
[2017-09-21] MEDS ORDERED: VANCOMYCIN IV 2,500 MG in SODIUM CHLORIDE 0.9% 500ML 500 ML IV ONE (12:30)
--- NOTE | 2017-09-21 12:34 | Pharmacy Progress Note ---
Pharmacy Abx Initial Consult Date of Service Sep 21, 2017. Pharmacy Dosing Scope Date of Consult: Consulted by Dr. Nazario on 09/16 for Invanz dosing and by Dr. Lawson on 09/21 for Vancomycin dosing. Subjective The patient is a 41 year old male admitted on Sep 15, 2017 at 06:08. Objective Height (Feet): 5 Height (Inches): 9.00 Weight (Kilograms): 99.100 Vital Signs (Past 12Hrs) Vital Signs Past 12 Hours Date Time Temp Pulse Resp B/P (MAP) Pulse Ox O2 Delivery O2 Flow Rate FiO2 09/21/17 08:00 Room Air 09/21/17 07:18 37.0 77 15 113/69 (84) 96 Room Air Lab Results (24Hrs) Laboratory Tests (24 Hours) Test 09/21/17 08:16 White Blood Count 7.50 K/uL (4.8-10.8) Red Blood Count 4.70 M/uL (4.7-6.1) Hemoglobin 12.5 g/dL (14.0-18.0) L Hematocrit 38.0 % (42-52) L Mean Corpuscular Volume 80.9 fL (80-100) Mean Corpuscular Hemoglobin 26.6 pg (25-34) Mean Corpuscular Hemoglobin Concent 32.9 g/dl (32-36) Platelet Count 227 K/uL (130-400) Mean Platelet Volume 9.5 fL (7.4-10.4) Neutrophils (%) (Auto) 57.7 % Lymphocytes (%) (Auto) 26.3 % Monocytes (%) (Auto) 9.5 % Eosinophils (%) (Auto) 5.5 % Basophils (%) (Auto) 0.5 % Neutrophils # (Auto) 4.33 K/uL (1.4-6.5) Lymphocytes # (Auto) 1.97 K/uL (1.2-3.4) Monocytes # (Auto) 0.71 K/uL (0.11-0.59) H Eosinophils # (Auto) 0.41 K/uL (0-0.5) Basophils # (Auto) 0.04 K/uL (0-0.2) Micro Results Date/Time Source Procedure Growth Status 09/18/17 12:25 Blood Blood Culture - Preliminary NO GROWTH TO DATE. Resulted 09/18/17 12:16 Blood Blood Culture - Preliminary NO GROWTH TO DATE. Resulted 09/17/17 12:06 Blood Blood Culture - Preliminary NO GROWTH TO DATE. Resulted 09/17/17 11:52 Blood Blood Culture - Final Abiotrophia Species Complete 09/16/17 08:58 Blood Blood Culture - Final Abiotrophia Species Alpha Strep Not S.pne/Enteroco Complete 09/16/17 08:31 Blood Blood Culture - Preliminary NO GROWTH TO DATE. Resulted 09/15/17 01:53 Blood Blood Culture - Final Enterobacter Cloacae Complete 09/15/17 01:15 Blood Blood Culture - Final Enterobacter Cloacae Complete 09/19/17 13:58 Catheter Tip Central Venous Pressure Line Catheter Tip Culture - Preliminary NO GROWTH TO DATE. Resulted Risk Factors for Resistance * Hospitalization for 48 hours or more within the past 90 days * Current hospitalization > 5 days * Antimicrobial use within the last 90 days: * Chronic antibiotic use since 2013 for post-op shoulder infection Assessment & Plan Assessment 41 year old male with chronic septic shoulder/bacteremia * 09/15 Blood culture 2/2: Enterobacter cloacae * 09/16 Blood culture 1/2: Abiotrophia, alpha strep (not strep pneumo/ enterococcus) * 09/17 Blood culture 1/2: Abiotrophia * 09/18 Blood cultures have NGTD Pt started daptomycin 09/15, changed to vancomycin today. Vancomycin dosing based on kinetics from previous admissions. * Renal function at baseline Plan Vancomycin and Ertapenem for treatment of Bacteremia. Vancomycin IV * Loading dose: 2500 mg (25 mg/kg) * Maintenance dose: 1500 mg IV (15 mg/kg) every 10 hours * Goal trough level for bacteremia: 15 to 20 mcg/mL * Trough level ordered for 09/22 @1530 * Level is ordered prior to steady state and is expected to be slightly lower than goal. Ertapenem * Continue 1 gm IV q 24 hours Pharmacy will continue to follow and will adjust dose/frequency as necessary. Thank you.
[2017-09-21 14:58] VITALS: BP 115/71; PULSE 81; TEMP 37.1; O2SAT 94
--- NOTE | 2017-09-21 17:46 | Progress Note ---
Medicine Progress Note Date & Time of Visit: Sep 21, 2017 at 17:36. Subjective Pt was seen and examined Lying in bed with no distress watching TV pain improved Denies any fever, chest pain, palpitation and SOB Objective Last 8 Hrs Date Time Temp Pulse Resp B/P (MAP) Pulse Ox O2 Delivery O2 Flow Rate FiO2 09/21/17 15:05 Room Air 09/21/17 14:58 37.1 81 18 115/71 (86) 94 Room Air Physical Exam: General- No acute distress Head- atraumatic Eyes- PERRL, EOMI ENT- oropharynx clear Neck- supple, no JVD Lungs- No wheezing Heart- regular rhythm Abdomen- normal bowel sounds, soft Extremities- no pretibial edema, right shoulder tenderness improved Neuro- alert, oriented x 3; PERRL, EOMI; no facial palsy Skin- warm & dry Laboratory Results: Last 24 Hours Test 09/21/17 08:16 White Blood Count 7.50 K/uL Red Blood Count 4.70 M/uL Hemoglobin 12.5 g/dL Hematocrit 38.0 % Mean Corpuscular Volume 80.9 fL Mean Corpuscular Hemoglobin 26.6 pg Mean Corpuscular Hemoglobin Concent 32.9 g/dl Platelet Count 227 K/uL Mean Platelet Volume 9.5 fL Neutrophils (%) (Auto) 57.7 % Lymphocytes (%) (Auto) 26.3 % Monocytes (%) (Auto) 9.5 % Eosinophils (%) (Auto) 5.5 % Basophils (%) (Auto) 0.5 % Neutrophils # (Auto) 4.33 K/uL Lymphocytes # (Auto) 1.97 K/uL Monocytes # (Auto) 0.71 K/uL Eosinophils # (Auto) 0.41 K/uL Basophils # (Auto) 0.04 K/uL RDW Standard Deviation 42.7 fL RDW Coefficient of Variation 14.6 % Immature Granulocyte % (Auto) 0.5 % Immature Granulocyte # (Auto) 0.04 K/uL Sodium Level 137 mmol/L Potassium Level 3.8 mmol/L Chloride Level 106 mmol/L Carbon Dioxide Level 27 mmol/L Anion Gap 4.0 mmol/L Blood Urea Nitrogen 12 mg/dl Creatinine 0.87 mg/dl Est Creatinine Clear Calc Drug Dose 132.3 ml/min Estimated GFR () 126.0 Estimated GFR (Non- 108.7 BUN/Creatinine Ratio 14.2 Random Glucose 93 mg/dl Calcium Level 7.9 mg/dl Assessment & Plan This is a 41 year old M with recurrent right shoulder infections and multiple right shoulder surgeries who last admitted to [facility] in June 2017 with right shoulder abscess that had incision drainage by orthopedics with vancomycin and gentamicin beads placed and subsequent would cultures of grew MRSA and patient subsequently discharged on daptomycin IV, who presents with sepsis and right shoulder pain SEPSIS Meet sepsis criteria on admission with elevated WBC, tachycardia, febrile and elevated lactic acid Related to BACTEREMIA-Enterococcus cloacae (09/15) Repeat blood cx grew strep cocci (09/16) Repeat blood grew gram positive cocci (09/17) Patten catheter placed about 1yr and 8 months ago No drainage or erythema around the surrounding area of the catheter Afebrile today, Lactic acid and wbc normalized Will consult vascular for possible catheter removal CT abdomen and pelvis no focus of infection CT upper extremity no signs of abscess MRI of upper extremity no signs of abscess/osteo Blood cx collected today ID on board 09/20 Patten cath removed and sent for culture, no growth so far ID on board recommended to d/c cefepime Continue Daptomycin IV Day 6 and Ertapenem day 5 Repeat blood cx no growth has been afebrile 09/21 Clinically stable has been afebrile over 48 hrs Patten cath removed and sent for culture with no growth ID on board recommended to changed dapto to Vanco IV for 14 days and maintain Vanco level 15-20 Continue Ertapenem for 2 weeks case discussed with cardio and reviewed echo again. No indication for echo since that will not change coordinator because pt will be on intermediate IV abx Will discuss with vascular for access for the IV abx infusion as outpatient Echo done. * -- Conclusions -- * The left ventricle is normal in size. * There is normal left ventricular wall thickness. * The left ventricular wall motion is normal. * Left ventricular systolic function is normal. * Ejection Fraction = 65-70%. * No valvular abnormalities are visualized * There is no pericardial effusion. RECURRENT RIGHT SHOULDER INFECTION CT upper extremity no infection MRI upper extremity no infection Orthopedic service consulted no plans for surgical intervention F/U w/ Dr Byrd as outpatient in 2-3 weeks HISTORY OF ANAL FISTULAS CT abdomen pelvis no acute process Denies any symptoms of rectal bleeding, pain, change in bowel movement Stable HYPOKALEMIA K 3.8 monitor BMP stable ACUTE RENAL FAILURE Likely from sepsis possibly prerenal etiology Creatine WNL Resolved PAIN MANAGEMENT Continue to have pain Oxycodone immediate release every 6 hours as needed for pain Toradol as needed Ofirmev IV 650 q. 8 as needed DVT px on SCD CODE STATUS FULL CODE Disposition Anticipate discharge to home when medically stable cleared by ID Will need 2 weeks of IV vanco and ertapenem Current Inpatient Medications: Current Inpatient Medications Medications (Trade) Dose Ordered Sig/Diane Route Start Time Stop Time Status Last Admin Dose Admin Acetaminophen (Tylenol Tab) 650 mg Q4H PRN PO 09/15/17 06:30 10/15/17 06:29 09/17/17 21:55 650 MG Senna (Senokot Tab) 8.6 mg QAM PO 09/15/17 09:00 10/15/17 08:59 09/18/17 08:23 8.6 MG Docusate Sodium (coLACE CAP) 100 mg BID PO 09/15/17 09:00 10/15/17 08:59 09/18/17 08:22 100 MG Diphenhydramine HCl (Benadryl Inj) 12.5 mg Q8H PRN IV 09/15/17 06:30 10/15/17 06:29 09/21/17 09:21 12.5 MG Ondansetron HCl (Zofran Inj) 4 mg Q6H PRN IV 09/15/17 07:00 10/15/17 06:59 09/18/17 00:42 4 MG Oxycodone HCl (Roxicodone Immediate Rel Tab) 10 mg Q6H PRN PO 09/15/17 09:15 09/29/17 09:14 09/21/17 00:03 10 MG Magnesium Oxide (Mag-Ox Tab) 400 mg BID PO 09/16/17 21:00 10/16/17 20:59 09/21/17 11:00 400 MG Ketorolac Tromethamine (Toradol Inj) 15 mg Q6H PRN IV 09/16/17 17:45 09/21/17 17:44 09/21/17 16:04 15 MG Ertapenem (Consult) 1 ea UD PRN N/A 09/16/17 19:15 10/16/17 19:14 Ertapenem 1000 mg/ Sodium Chloride 60 ml @ 100 mls/hr Q24H IV 09/16/17 20:00 09/30/17 19:59 09/20/17 20:01 100 MLS/HR Acetaminophen 100 ml @ 400 mls/hr Q8H PRN IV 09/17/17 23:45 10/17/17 23:44 Vancomycin HCl 1500 mg/Sodium Chloride 530 ml @ 200 mls/hr Q10H IV 09/21/17 20:00 10/05/17 11:59 Miscellaneous Information (Consult) 1 ea UD PRN N/A 09/21/17 11:45 10/21/17 11:44
[2017-09-21] MEDS: ERTAPENEM IV 1,000 MG in SODIUM CHLORIDE 0.9% 50ML 50 ML IV SCH (20:02)
[2017-09-21] MEDS: VANCOMYCIN IV 1,500 MG in SODIUM CHLORIDE 0.9% 500ML 500 ML IV SCH (20:03)
[2017-09-21 23:18] VITALS: BP 146/86; PULSE 74; TEMP 37.4; O2SAT 93
[2017-09-22] MEDS: VANCOMYCIN IV 1,500 MG in SODIUM CHLORIDE 0.9% 500ML 500 ML IV SCH ×2 (06:04→16:46)
[2017-09-22] MEDS: DiphenhydrAMINE HCL 50 MG/ML VIAL IV PRN ×2 (06:04→16:46)
[2017-09-22] MEDS: DOCUSATE SODIUM 100 MG CAP PO SCH ×2 (07:43→20:10)
[2017-09-22] MEDS: SENNA 8.6 MG TAB PO SCH (07:44)
[2017-09-22] MEDS: MAGNESIUM OXIDE 400 MG TAB PO SCH ×2 (07:44→20:11)
[2017-09-22 08:52] VITALS: BP 87/60; PULSE 70; TEMP 36.6; O2SAT 92
[2017-09-22 09:01] VITALS: BP 108/61
[2017-09-22] MEDS: OXYCODONE HCL IR 5 MG TAB (IMMEDIATE RELEASE) PO PRN (14:00)
[2017-09-22 15:03] VITALS: BP 122/73; PULSE 69; TEMP 37.2; O2SAT 95
[2017-09-22] MEDS ORDERED: VANCOMYCIN TROUGH ONE (15:30)
--- NOTE | 2017-09-22 16:54 | Progress Note ---
Medicine Progress Note Date & Time of Visit: Sep 22, 2017 at 13:48. Subjective Pt was seen and examined Standing by the windows looking outside Pt said that he feels fine He would like to be discharged by Sunday Denies any fever, chest pain, palpitation and SOB Objective Last 8 Hrs Date Time Temp Pulse Resp B/P (MAP) Pulse Ox O2 Delivery O2 Flow Rate FiO2 09/22/17 15:03 37.2 69 18 122/73 (89) 95 Room Air 09/22/17 09:01 108/61 (77) 09/22/17 08:52 36.6 70 20 87/60 (69) 92 Room Air Physical Exam: General- No acute distress Head- atraumatic Eyes- PERRL, EOMI ENT- oropharynx clear Neck- supple, no JVD Lungs- No wheezing Heart- regular rhythm Abdomen- normal bowel sounds, soft Extremities- no pretibial edema, right shoulder tenderness improved Neuro- alert, oriented x 3; PERRL, EOMI; no facial palsy Skin- warm & dry Laboratory Results: Last 24 Hours Test 09/22/17 15:36 Vancomycin Level Trough 17.9 mcg/ml Assessment & Plan This is a 41 year old M with recurrent right shoulder infections and multiple right shoulder surgeries who last admitted to [facility] in June 2017 with right shoulder abscess that had incision drainage by orthopedics with vancomycin and gentamicin beads placed and subsequent would cultures of grew MRSA and patient subsequently discharged on daptomycin IV, who presents with sepsis and right shoulder pain SEPSIS Meet sepsis criteria on admission with elevated WBC, tachycardia, febrile and elevated lactic acid Related to BACTEREMIA-Enterococcus cloacae (09/15) Repeat blood cx grew strep cocci (09/16) Repeat blood grew gram positive cocci (09/17) Patten catheter placed about 1yr and 8 months ago No drainage or erythema around the surrounding area of the catheter Afebrile today, Lactic acid and wbc normalized Will consult vascular for possible catheter removal CT abdomen and pelvis no focus of infection CT upper extremity no signs of abscess MRI of upper extremity no signs of abscess/osteo Blood cx collected today ID on board 09/20 Patten cath removed and sent for culture, no growth so far ID on board recommended to d/c cefepime Continue Daptomycin IV Day 6 and Ertapenem day 5 Repeat blood cx no growth has been afebrile 09/22 Clinically stable has been afebrile over 48 hrs Patten cath removed and sent for culture with no growth ID on board recommended to changed dapto to Vanco IV for 14 days and maintain Vanco level 15-20 Continue Ertapenem for 2 weeks case discussed with cardio and reviewed echo again. No indication for echo since that will not change management manager because pt will be on correction IV abx Case discusssed with vascular surgery Dr. Ewing, he would insert cath access possible Sunday Stable for discharge once access place for the IV abx infusion as outpatient Will need weekly cbc and cmp while on abx Echo done. * -- Conclusions -- * The left ventricle is normal in size. * There is normal left ventricular wall thickness. * The left ventricular wall motion is normal. * Left ventricular systolic function is normal. * Ejection Fraction = 65-70%. * No valvular abnormalities are visualized * There is no pericardial effusion. RECURRENT RIGHT SHOULDER INFECTION CT upper extremity no infection MRI upper extremity no infection Orthopedic service consulted no plans for surgical intervention F/U w/ Dr Byrd as outpatient in 2-3 weeks HISTORY OF ANAL FISTULAS CT abdomen pelvis no acute process Denies any symptoms of rectal bleeding, pain, change in bowel movement Stable HYPOKALEMIA K 3.8 monitor BMP stable ACUTE RENAL FAILURE Likely from sepsis possibly prerenal etiology Creatine WNL Resolved PAIN MANAGEMENT Continue to have pain Oxycodone immediate release every 6 hours as needed for pain Toradol as needed Ofirmev IV 650 q. 8 as needed DVT px on SCD CODE STATUS FULL CODE Disposition Anticipate discharge to home when medically stable cleared by ID Will need 2 weeks of IV vanco and ertapenem Consultants: vascular surgery cardio Ortho ID Current Inpatient Medications: Current Inpatient Medications Medications (Trade) Dose Ordered Sig/Diane Route Start Time Stop Time Status Last Admin Dose Admin Acetaminophen (Tylenol Tab) 650 mg Q4H PRN PO 09/15/17 06:30 10/15/17 06:29 09/17/17 21:55 650 MG Senna (Senokot Tab) 8.6 mg QAM PO 09/15/17 09:00 10/15/17 08:59 09/18/17 08:23 8.6 MG Docusate Sodium (coLACE CAP) 100 mg BID PO 09/15/17 09:00 10/15/17 08:59 09/18/17 08:22 100 MG Diphenhydramine HCl (Benadryl Inj) 12.5 mg Q8H PRN IV 09/15/17 06:30 10/15/17 06:29 09/22/17 16:46 12.5 MG Ondansetron HCl (Zofran Inj) 4 mg Q6H PRN IV 09/15/17 07:00 10/15/17 06:59 09/18/17 00:42 4 MG Oxycodone HCl (Roxicodone Immediate Rel Tab) 10 mg Q6H PRN PO 09/15/17 09:15 09/29/17 09:14 09/22/17 14:00 10 MG Magnesium Oxide (Mag-Ox Tab) 400 mg BID PO 09/16/17 21:00 10/16/17 20:59 09/21/17 20:09 400 MG Ertapenem (Consult) 1 UD PRN N/A 09/16/17 19:15 10/16/17 19:14 Ertapenem 1000 mg/ Sodium Chloride 60 ml @ 100 mls/hr Q24H IV 09/16/17 20:00 09/30/17 19:59 09/21/17 20:02 100 MLS/HR Acetaminophen 100 ml @ 400 mls/hr Q8H PRN IV 09/17/17 23:45 10/17/17 23:44 Vancomycin HCl 1500 mg/Sodium Chloride 530 ml @ 200 mls/hr Q10H IV 09/21/17 20:00 10/05/17 11:59 09/22/17 16:46 200 MLS/HR Miscellaneous Information (Consult) 1 UD PRN N/A 09/21/17 11:45 10/21/17 11:44
[2017-09-22] MEDS: ERTAPENEM IV 1,000 MG in SODIUM CHLORIDE 0.9% 50ML 50 ML IV SCH (20:10)
[2017-09-22 23:25] VITALS: BP 130/83; PULSE 69; TEMP 37.1; O2SAT 93
[2017-09-23] MEDS: OXYCODONE HCL IR 5 MG TAB (IMMEDIATE RELEASE) PO PRN ×3 (00:46→20:41)
[2017-09-23] MEDS: DiphenhydrAMINE HCL 50 MG/ML VIAL IV PRN ×2 (01:53→11:42)
[2017-09-23] MEDS: VANCOMYCIN IV 1,500 MG in SODIUM CHLORIDE 0.9% 500ML 500 ML IV SCH ×3 (01:57→21:23)
[2017-09-23 07:35] VITALS: BP 100/63; PULSE 71; TEMP 36.5; O2SAT 94
--- NOTE | 2017-09-23 08:23 | Pharmacy Progress Note ---
Pharmacy Antibiotic Prog Note Date of Service Sep 23, 2017. Subjective The patient is currently receiving VANCOMYCIN 1500mg IV every 10 hours. The patient is currently on day # 3 of VANCOMYCIN IV therapy. Objective Height (Feet): 5 Height (Inches): 9.00 Weight (Kilograms): 99.100 Levels: Item Value Date Time Vancomycin Level Trough 17.9 mcg/ml 09/22/17 1536 Lab Results (24hrs): Test 09/22/17 15:36 Vancomycin Level Trough 17.9 mcg/ml (SEE COMMENT) Micro Results: * See EMR Recent Pertinent Medications Item Value Date Time Vancomycin HCl 530 ml @ 200 mls/hr 09/21/17 2000 1500 mg/Sodium Q10H/IV 09/23/17 0157 Chloride Ertapenem 1000 mg/ 60 ml @ 100 mls/hr 09/16/17 2000 Sodium Chloride Q24H/IV 09/22/172009 Assessment & Plan 41yo male receiving VANCOMYCIN / ERTAPENEM for septic right shoulder infection. Renal function has been stable. VANCOMYCIN: * Patient has been receiving VANCOMYCIN 1500mg IV q10h. * Trough level drawn prior to 1600 dose yesterday = 17.9mcg/mL. * This drug level is Therapeutic. * Continue VANCOMYCIN 1500mg IV every 10 hours. * Goal trough level estimate: between 15 - 20 mcg/mL. * Will recheck a trough level in a few days or with any changes in renal function. Pharmacy will continue to follow and will adjust dose/frequency as necessary. Thank you
[2017-09-23] MEDS: SENNA 8.6 MG TAB PO SCH (09:00)
[2017-09-23] MEDS: DOCUSATE SODIUM 100 MG CAP PO SCH ×2 (09:00→20:47)
[2017-09-23] MEDS: MAGNESIUM OXIDE 400 MG TAB PO SCH ×2 (09:15→20:47)
--- NOTE | 2017-09-23 15:18 | Progress Note ---
Medicine Progress Note Date & Time of Visit: Sep 23, 2017 at 15:13. Subjective Pt was seen and examined Lying in bed with no distress with headphone one listen to music Pt is looking forward to be discharged tomorrow if vascular can place access tomorrow He has been afebrile Denies any chest pain, palpitation, dizziness Objective Last 8 Hrs Date Time Temp Pulse Resp B/P (MAP) Pulse Ox O2 Delivery O2 Flow Rate FiO2 09/23/17 09:17 Room Air 09/23/17 07:35 36.5 71 18 100/63 (75) 94 Room Air Physical Exam: General- No acute distress Head- atraumatic Eyes- PERRL, EOMI ENT- oropharynx clear Neck- supple, no JVD Lungs- No wheezing Heart- regular rhythm Abdomen- normal bowel sounds, soft Extremities- no pretibial edema, right shoulder tenderness improved Neuro- alert, oriented x 3; PERRL, EOMI; no facial palsy Skin- warm & dry Laboratory Results: Last 24 Hours Test 09/22/17 15:36 Vancomycin Level Trough 17.9 mcg/ml Assessment & Plan This is a 41 year old M with recurrent right shoulder infections and multiple right shoulder surgeries who last admitted to [facility] in June 2017 with right shoulder abscess that had incision drainage by orthopedics with vancomycin and gentamicin beads placed and subsequent would cultures of grew MRSA and patient subsequently discharged on daptomycin IV, who presents with sepsis and right shoulder pain SEPSIS Meet sepsis criteria on admission with elevated WBC, tachycardia, febrile and elevated lactic acid Related to BACTEREMIA-Enterococcus cloacae (09/15) Repeat blood cx grew strep cocci (09/16) Repeat blood grew gram positive cocci (09/17) Patten catheter placed about 1yr and 8 months ago No drainage or erythema around the surrounding area of the catheter Afebrile today, Lactic acid and wbc normalized Will consult vascular for possible catheter removal CT abdomen and pelvis no focus of infection CT upper extremity no signs of abscess MRI of upper extremity no signs of abscess/osteo Blood cx collected today ID on board 09/20 Patten cath removed and sent for culture, no growth so far ID on board recommended to d/c cefepime Continue Daptomycin IV Day 6 and Ertapenem day 5 Repeat blood cx no growth has been afebrile 09/23 Clinically stable has been afebrile for over 72hrs Patten cath removed and sent for culture with no growth ID on board recommended to changed dapto to Vanco IV for 14 days and maintain Vanco level 15-20 Continue Ertapenem for 2 weeks case discussed with cardio and reviewed echo again. No indication for echo since that will not globe changer because pt will be on assisted IV abx Case discusssed with vascular surgery Dr. Ewing, he would insert cath access possible Sunday Stable for discharge once access place for the IV abx infusion as outpatient Will need weekly cbc and cmp while on abx Pt would like to get cath place tomorrow and he wants to remain NPO after midnight in case there is an opening in the OR for tomorrow. Echo done. * -- Conclusions -- * The left ventricle is normal in size. * There is normal left ventricular wall thickness. * The left ventricular wall motion is normal. * Left ventricular systolic function is normal. * Ejection Fraction = 65-70%. * No valvular abnormalities are visualized * There is no pericardial effusion. RECURRENT RIGHT SHOULDER INFECTION CT upper extremity no infection MRI upper extremity no infection Orthopedic service consulted no plans for surgical intervention F/U w/ Dr Byrd as outpatient in 2-3 weeks HISTORY OF ANAL FISTULAS CT abdomen pelvis no acute process Denies any symptoms of rectal bleeding, pain, change in bowel movement Stable HYPOKALEMIA K 3.8 monitor BMP stable ACUTE RENAL FAILURE Likely from sepsis possibly prerenal etiology Creatine WNL Resolved PAIN MANAGEMENT Continue to have pain Oxycodone immediate release every 6 hours as needed for pain Toradol as needed Ofirmev IV 650 q. 8 as needed DVT px on SCD CODE STATUS FULL CODE Disposition Anticipate discharge to home when medically stable cleared by ID Will need 2 weeks of IV vanco and ertapenem Consultants: vascular surgery cardio Ortho ID Current Inpatient Medications: Current Inpatient Medications Medications (Trade) Dose Ordered Sig/Diane Route Start Time Stop Time Status Last Admin Dose Admin Acetaminophen (Tylenol Tab) 650 mg Q4H PRN PO 09/15/17 06:30 10/15/17 06:29 09/17/17 21:55 650 MG Senna (Senokot Tab) 8.6 mg QAM PO 09/15/17 09:00 10/15/17 08:59 09/18/17 08:23 8.6 MG Docusate Sodium (coLACE CAP) 100 mg BID PO 09/15/17 09:00 10/15/17 08:59 09/18/17 08:22 100 MG Diphenhydramine HCl (Benadryl Inj) 12.5 mg Q8H PRN IV 09/15/17 06:30 10/15/17 06:29 09/23/17 11:42 12.5 MG Ondansetron HCl (Zofran Inj) 4 mg Q6H PRN IV 09/15/17 07:00 10/15/17 06:59 09/18/17 00:42 4 MG Oxycodone HCl (Roxicodone Immediate Rel Tab) 10 mg Q6H PRN PO 09/15/17 09:15 09/29/17 09:14 09/23/17 11:42 10 MG Magnesium Oxide (Mag-Ox Tab) 400 mg BID PO 09/16/17 21:00 10/16/17 20:59 09/23/17 09:15 400 MG Ertapenem (Consult) 1 ea UD PRN N/A 09/16/17 19:15 10/16/17 19:14 Ertapenem 1000 mg/ Sodium Chloride 60 ml @ 100 mls/hr Q24H IV 09/16/17 20:00 09/30/17 19:59 09/22/17 20:10 100 MLS/HR Acetaminophen 100 ml @ 400 mls/hr Q8H PRN IV 09/17/17 23:45 10/17/17 23:44 Vancomycin HCl 1500 mg/Sodium Chloride 530 ml @ 200 mls/hr Q10H IV 09/21/17 20:00 10/05/17 11:59 09/23/17 11:41 200 MLS/HR Miscellaneous Information (Consult) 1 ea UD PRN N/A 09/21/17 11:45 10/21/17 11:44
[2017-09-23 16:00] VITALS: BP 121/78; PULSE 87; TEMP 37.2; O2SAT 95
[2017-09-23] MEDS: ERTAPENEM IV 1,000 MG in SODIUM CHLORIDE 0.9% 50ML 50 ML IV SCH (20:42)
[2017-09-23 23:30] VITALS: BP 128/80; PULSE 77; TEMP 37.1; O2SAT 94
[2017-09-24 00:15] VITALS: O2SAT 94
[2017-09-24] MEDS ORDERED: LORATADINE 10 MG TAB PO ONE (00:45)
[2017-09-24] MEDS: OXYCODONE HCL IR 5 MG TAB (IMMEDIATE RELEASE) PO PRN ×3 (02:38→18:38)
[2017-09-24 07:12] VITALS: BP 89/56; PULSE 78; TEMP 36.7; O2SAT 92
[2017-09-24] MEDS: DOCUSATE SODIUM 100 MG CAP PO SCH ×2 (07:48→20:23)
[2017-09-24] MEDS: VANCOMYCIN IV 1,500 MG in SODIUM CHLORIDE 0.9% 500ML 500 ML IV SCH ×2 (07:48→18:37)
[2017-09-24] MEDS: MAGNESIUM OXIDE 400 MG TAB PO SCH ×2 (07:48→20:24)
[2017-09-24] MEDS: SENNA 8.6 MG TAB PO SCH (07:48)
[2017-09-24 08:09] LABS: CREATININE 0.99 mg/dl (0.60-1.40)
--- NOTE | 2017-09-24 10:38 | Progress Note ---
Subjective Date of Service: Sep 24, 2017. Subjective pt resting in bed. pain controlled. remains afebrile. awaiting new line placement. repeat cultures negative. remains on ertapenem and vanco. no complaints. Problem List Medical Problems: (1) Abscess of right arm Status: Acute (2) Cellulitis of shoulder Status: Acute (3) Cellulitis of shoulder Status: Acute (4) Fever Status: Acute (5) Hypokalemia Status: Acute (6) Hypotension Status: Acute (7) Infection of shoulder Status: Acute (8) Right arm cellulitis Status: Acute (9) Sepsis Status: Acute (10) Sepsis Status: Acute (11) Sepsis Status: Acute (12) Septic arthritis of shoulder, right Status: Acute (13) Septic joint of right shoulder region Status: Acute (14) Shoulder pain Status: Acute Objective Vital Signs Date Time Temp Pulse Resp B/P (MAP) Pulse Ox O2 Delivery O2 Flow Rate FiO2 09/24/17 07:35 Room Air 09/24/17 07:12 36.7 78 18 89/56 (67) 92 Room Air 09/24/17 00:15 94 Room Air 4.0 09/23/17 23:30 37.1 77 16 128/80 (96) 94 Room Air 09/23/17 22:30 Room Air 09/23/17 16:00 37.2 87 16 121/78 (92) 95 Room Air Physical Exam General Appearance: WD/WN, no apparent distress Eyes: normal inspection Neck: supple Respiratory/Chest: normal breath sounds, no respiratory distress Cardiovascular: regular rate, rhythm, no edema Extremities: no pedal edema Neurologic/Psychiatric: alert Skin: normal color Laboratory Results Item Value Date Time Catheter Tip Culture - Final Complete 09/19/17 1358 Catheter Tip Central Venous Pressure Line NO GROWTH Blood Culture - Final Complete 09/18/17 1225 Blood NO GROWTH Blood Culture - Final Complete 09/18/17 1216 Blood NO GROWTH Blood Culture - Final Complete 09/16/17 0858 Blood Abiotrophia Species Blood Culture - Final Complete 09/17/17 1152 Blood Abiotrophia Species Blood Culture - Final Complete 09/15/17 0115 Blood Enterobacter Cloacae Last 24 Hours Test 09/24/17 07:07 Creatinine 0.99 mg/dl Est Creatinine Clear Calc Drug Dose 116.3 ml/min Estimated GFR () 110.7 Estimated GFR (Non- 95.5 Assessment and Plan (1) Sepsis Assessment & Plan: will continue with ertapenem, 2 weeks total. will change dapto to vanco and follow level maintain 15-20. will need weekly cbc,cmp. will need access, discussed with case management. will need 14 days vanco. (2) Infected venous access port
--- NOTE | 2017-09-24 11:15 | Progress Note ---
Progress Note Date of Service: Sep 24, 2017. Subjective No complaints Problem List Medical Problems: (1) Abscess of right arm Status: Acute (2) Cellulitis of shoulder Status: Acute (3) Cellulitis of shoulder Status: Acute (4) Fever Status: Acute (5) Hypokalemia Status: Acute (6) Hypotension Status: Acute (7) Infection of shoulder Status: Acute (8) Right arm cellulitis Status: Acute (9) Sepsis Status: Acute (10) Sepsis Status: Acute (11) Sepsis Status: Acute (12) Septic arthritis of shoulder, right Status: Acute (13) Septic joint of right shoulder region Status: Acute (14) Shoulder pain Status: Acute Objective Vital Signs Vital Signs Past 12 Hours Date Time Temp Pulse Resp B/P (MAP) Pulse Ox O2 Delivery O2 Flow Rate FiO2 09/24/17 07:35 Room Air 09/24/17 07:12 36.7 78 18 89/56 (67) 92 Room Air 09/24/17 00:15 94 Room Air 4.0 09/23/17 23:30 37.1 77 16 128/80 (96) 94 Room Air Exam Old exit site clean and dry. No erythema or tenderness Laboratory and Microbiology Results Past 24 Hours Test 09/24/17 07:07 Range/Units Creatinine 0.99 0.60-1.40 mg/dl Est Creatinine Clear Calc Drug Dose 116.3 ml/min Estimated GFR () 110.7 Estimated GFR (Non- 95.5 Imp: Post muller removal Plan: Patient for muller insertion tomorrow. I have discussed the risks options and benefits of the procedure with the patient. The patient understands the risks options and benefits and agrees to the procedure.
[2017-09-24 15:22] VITALS: BP 110/74; PULSE 82; TEMP 37.2; O2SAT 95
--- NOTE | 2017-09-24 16:22 | Progress Note ---
Medicine Progress Note Date & Time of Visit: Sep 24, 2017 at 16:15. Subjective Pt was seen and examined Lying in bed with no distress Pt said that he feels fine, but bored denies any chest pain, palpitation, dizziness, fever and SOB Objective Last 8 Hrs Date Time Temp Pulse Resp B/P (MAP) Pulse Ox O2 Delivery O2 Flow Rate FiO2 09/24/17 15:22 37.2 82 16 110/74 (86) 95 Room Air Physical Exam: General- No acute distress Head- atraumatic Eyes- PERRL, EOMI ENT- oropharynx clear Neck- supple, no JVD Lungs- No wheezing Heart- regular rhythm Abdomen- normal bowel sounds, soft Extremities- no pretibial edema, right shoulder tenderness improved Neuro- alert, oriented x 3; PERRL, EOMI; no facial palsy Skin- warm & dry Laboratory Results: Last 24 Hours Test 09/24/17 07:07 Creatinine 0.99 mg/dl Est Creatinine Clear Calc Drug Dose 116.3 ml/min Estimated GFR () 110.7 Estimated GFR (Non- 95.5 Assessment & Plan This is a 41 year old M with recurrent right shoulder infections and multiple right shoulder surgeries who last admitted to [facility] in June 2017 with right shoulder abscess that had incision drainage by orthopedics with vancomycin and gentamicin beads placed and subsequent would cultures of grew MRSA and patient subsequently discharged on daptomycin IV, who presents with sepsis and right shoulder pain SEPSIS Meet sepsis criteria on admission with elevated WBC, tachycardia, febrile and elevated lactic acid Related to BACTEREMIA-Enterococcus cloacae (09/15) Repeat blood cx grew strep cocci (09/16) Repeat blood grew gram positive cocci (09/17) Patten catheter placed about 1yr and 8 months ago No drainage or erythema around the surrounding area of the catheter Afebrile today, Lactic acid and wbc normalized Will consult vascular for possible catheter removal CT abdomen and pelvis no focus of infection CT upper extremity no signs of abscess MRI of upper extremity no signs of abscess/osteo Blood cx collected today ID on board 09/20 Patten cath removed and sent for culture, no growth so far ID on board recommended to d/c cefepime Continue Daptomycin IV Day 6 and Ertapenem day 5 Repeat blood cx no growth has been afebrile 09/24 Clinically stable has been afebrile for over 72hrs Patten cath removed and sent for culture with no growth ID on board recommended to changed dapto to Vanco IV for 14 days on day#4 and maintain Vanco level 15-20 Continue Ertapenem to complete 2 weeks course on day#8 case discussed with cardio and reviewed echo again. No indication for echo since that will not change consultant because pt will be on long term IV abx Case discusssed with vascular surgery Dr. Ewing, he would insert cath access possible Sunday Stable for discharge once access place for the IV abx infusion as outpatient Will need weekly cbc and cmp while on abx Schedule for Patten cath tomorrow with dr. Ewing Will keep NPO Echo done. * -- Conclusions -- * The left ventricle is normal in size. * There is normal left ventricular wall thickness. * The left ventricular wall motion is normal. * Left ventricular systolic function is normal. * Ejection Fraction = 65-70%. * No valvular abnormalities are visualized * There is no pericardial effusion. RECURRENT RIGHT SHOULDER INFECTION CT upper extremity no infection MRI upper extremity no infection Orthopedic service consulted no plans for surgical intervention F/U w/ Dr Byrd as outpatient in 2-3 weeks HISTORY OF ANAL FISTULAS CT abdomen pelvis no acute process Denies any symptoms of rectal bleeding, pain, change in bowel movement Stable HYPOKALEMIA K 3.8 monitor BMP stable ACUTE RENAL FAILURE Likely from sepsis possibly prerenal etiology Creatine WNL Resolved PAIN MANAGEMENT Continue to have pain Oxycodone immediate release every 6 hours as needed for pain Toradol as needed Ofirmev IV 650 q. 8 as needed DVT px on SCD CODE STATUS FULL CODE Disposition Anticipate discharge to home when medically stable cleared by ID Will need to complete 2 weeks of IV vanco and ertapenem course Consultants: vascular surgery cardio Ortho ID Current Inpatient Medications: Current Inpatient Medications Medications (Trade) Dose Ordered Sig/Diane Route Start Time Stop Time Status Last Admin Dose Admin Acetaminophen (Tylenol Tab) 650 mg Q4H PRN PO 09/15/17 06:30 10/15/17 06:29 09/17/17 21:55 650 MG Senna (Senokot Tab) 8.6 mg QAM PO 09/15/17 09:00 10/15/17 08:59 09/18/17 08:23 8.6 MG Docusate Sodium (coLACE CAP) 100 mg BID PO 09/15/17 09:00 10/15/17 08:59 09/18/17 08:22 100 MG Ondansetron HCl (Zofran Inj) 4 mg Q6H PRN IV 09/15/17 07:00 10/15/17 06:59 09/18/17 00:42 4 MG Oxycodone HCl (Roxicodone Immediate Rel Tab) 10 mg Q6H PRN PO 09/15/17 09:15 09/29/17 09:14 09/24/17 10:58 10 MG Magnesium Oxide (Mag-Ox Tab) 400 mg BID PO 09/16/17 21:00 10/16/17 20:59 09/23/17 20:47 400 MG Ertapenem (Consult) 1 ea UD PRN N/A 09/16/17 19:15 10/16/17 19:14 Ertapenem 1000 mg/ Sodium Chloride 60 ml @ 100 mls/hr Q24H IV 09/16/17 20:00 09/30/17 19:59 09/23/17 20:42 100 MLS/HR Acetaminophen 100 ml @ 400 mls/hr Q8H PRN IV 09/17/17 23:45 10/17/17 23:44 Vancomycin HCl 1500 mg/Sodium Chloride 530 ml @ 200 mls/hr Q10H IV 09/21/17 20:00 10/05/17 11:59 09/24/17 07:48 200 MLS/HR Miscellaneous Information (Consult) 1 ea UD PRN N/A 09/21/17 11:45 10/21/17 11:44 Diphenhydramine HCl (Benadryl Cap) 25 mg Q6H PRN PO 09/24/17 00:45 10/23/17 15:14 09/24/17 07:47 25 MG
[2017-09-24] MEDS: ERTAPENEM IV 1,000 MG in SODIUM CHLORIDE 0.9% 50ML 50 ML IV SCH (20:23)
[2017-09-24 22:56] VITALS: BP 119/79; PULSE 78; TEMP 37.2; O2SAT 93
[2017-09-25] VITALS (12 sets, daily range): BP systolic 95–143; BP diastolic 60–80; PULSE 65–90; TEMP 36.6–37.1; O2SAT 92–96
[2017-09-25] MEDS ORDERED: VANCOMYCIN TROUGH ONE (03:30)
[2017-09-25] MEDS: VANCOMYCIN IV 1,500 MG in SODIUM CHLORIDE 0.9% 500ML 500 ML IV SCH (04:37)
--- NOTE | 2017-09-25 07:08 | Progress Note ---
Progress Note Date of Service Sep 25, 2017. Progress Note Patient for an insertion of a muller catheter. I have discussed the risks options and benefits of the procedure with the patient. The patient understands the risks options and benefits and agrees to the procedure. I have examined the patient, reviewed the History & Physical and in the interval since the performance of the History & Physical I have noted the following changes of clinical significance: No changes noted
[2017-09-25] MEDS: SENNA 8.6 MG TAB PO SCH (07:18)
[2017-09-25] MEDS: MAGNESIUM OXIDE 400 MG TAB PO SCH (07:18)
[2017-09-25] MEDS: DOCUSATE SODIUM 100 MG CAP PO SCH (07:18)
[2017-09-25] MEDS ORDERED: MIDAZOLAM HCL 1 MG/ML 2ML VIAL ONE (07:46)
[2017-09-25] MEDS ORDERED: FENTANYL CITRATE INJ 50 MCG/1 ML 2 ML VIAL ONE (07:46)
--- NOTE | 2017-09-25 08:07 | Pre Sedation Assessment ---
Pre Sedation Assessment General Date of Sedation: Sep 25, 2017. Vital Signs Past 12 Hours Date Time Temp Pulse Resp B/P (MAP) Pulse Ox O2 Delivery O2 Flow Rate FiO2 09/25/17 06:58 36.6 70 14 117/66 (83) 95 Room Air 09/24/17 23:46 Room Air 09/24/17 22:56 37.2 78 16 119/79 (92) 93 Room Air Review Cardiovascular: regular rate, rhythm Lungs: lungs clear Pre-Sedation Airway Assessment Smoking Status: Never Smoker Hx of Sleep Apnea: No Short Thick Neck: No Thyro-mental Distance: > 3 Finger Breadths Oral Cavity: WNL Mallampati Classification: Class II ASA Classification: Class II NPO Status Date of Last Intake of Fluids: Sep 24, 2017 Time of Last Intake of Fluids: 1999 Date of Last Intake of Solids: Sep 24, 2017 Time of Last Intake of Solids: 1999 Procedure Planning Contraindications for Sedation: None Current Medications Reviewed: Yes Notes The planned sedation has been discussed with the patient. Informed Consent was obtained. I have identified the patient, determined the appropriateness of sedation and have assessed the patient immediately prior to the procedure. All medicine(s) and interventions are by my order.
[2017-09-25] MEDS ORDERED: SODIUM CHLORIDE 0.9% 1000ML 1,000 ML IV SCH (08:15)
[2017-09-25] MEDS ORDERED: MIDAZOLAM HCL 1 MG/ML 2ML VIAL IV ONE (08:40)
[2017-09-25] MEDS ORDERED: FENTANYL CITRATE INJ 50 MCG/1 ML 2 ML VIAL IV ONE (08:41)
[2017-09-25] MEDS ORDERED: LIDOCAINE HCL 1% 20 ML VIAL INJ ONE (08:46)
--- NOTE | 2017-09-25 09:13 | [facility] Post Operative Brief Note ---
Immediate Operative Summary Operative Date Sep 25, 2017. Pre-Operative Diagnosis Infected Shoulder Post-Operative Diagnosis Infected Shoulder Procedure(s) Performed Patten Insertion Right Jugular Approach Ultrasound Localization Right Jugular Vein Fluoroscopy for Postioning Moderate Sedation [id number] Surgeon Kaylin Emblem Maker Surgeon(s) Debbie Estimated Blood Loss 5 ml Findings Consistent with Post-Op Diagnosis Specimens None Drains None Anesthesia Type IV Sedat Cons RN Only Complication(s) none Disposition Accompanied Pt To Recover: no Disposition:
--- NOTE | 2017-09-25 09:18 | Post Sedation Assessment ---
Post Sedation Assessment General Date of Sedation Sep 25, 2017. Vital Signs: Vital Signs Past 12 Hours Date Time Temp Pulse Resp B/P (MAP) Pulse Ox O2 Delivery O2 Flow Rate FiO2 09/25/17 09:10 69 16 111/62 94 Room Air 4 09/25/17 09:05 61 16 118/73 96 Room Air 4 09/25/17 09:00 67 16 108/71 98 Oxymask 4 09/25/17 08:55 71 16 96 Oxymask 4 09/25/17 08:50 64 16 99 Oxymask 4 09/25/17 08:45 73 16 98 Oxymask 4 09/25/17 08:41 66 16 126/74 99 Oxymask 4 09/25/17 06:58 36.6 70 14 117/66 (83) 95 Room Air 09/24/17 23:46 Room Air 09/24/17 22:56 37.2 78 16 119/79 (92) 93 Room Air Post Procedure Recovery Score Activity: (2) Moves 4 extremities * Respiration: (2) Deep breath/cough Circulation: (2) +/-20% PreAnes Value Consciousness: (2) Fully Awake Oxygen Saturation: (2) > 92% On Room Air Post Anesthesia Score: 10 Discharge Sedation Level of Care: Fast Track Phase II Post Sedation Plan On clinical assessment, the patient appears to have tolerated the sedation without complications. Patient is recovering as anticipated. Patient will continue to be monitored by nursing and may be discharged when sedation discharge criteria are met per below protocol. Upon Completions of procedure and additional 15 minutes continue every 5 minute vital signs and the P.A.R. score; then discharge to a Phase I or Fast Track to Phase II per the following guidelines: * Discharge Patient to appropriate Phase II area if PAR is 8 or greater or return to pre- procedure baseline. The post - procedure orders will be as directed. * If PAR score is less than 8 or not return to pre-procedure baseline then patient will follow Phase I monitoring till PAR is reached for Phase II. The Phase I may be done in procedure room or may call to secure a Phase I area. * If naloxone or flumazenil are used for reversal, hold in Phase I for an additional 60 -120 minutes before discharge to Phase II. Please call the Sedation Physician to re-evaluate and complete post-note for discharge to Phase II area. Do NOT discharge from procedure sedation or Phase 1 until post- sedation evaluation note is complete by procedure /sedation MD Sedation Discharge Instructions to be given to the patient at discharge to home.
--- NOTE | 2017-09-25 09:40 | DIAGNOSTIC IMAGING REPORT ---
DATE OF PROCEDURE: 09/25/2017 PREOPERATIVE DIAGNOSIS: Need for long-term intravenous access. POSTOPERATIVE DIAGNOSIS: Need for long-term intravenous access. PROCEDURE: Ultrasound guided right IJ access, placement of tunneled Patten catheter, fluoroscopy for positioning, moderate sedation 27 minutes. SURGEON: Dr. Manuelito Ewing. SUPERINTENDENT PIER: Dr. Kadie Lewis. ANESTHESIA: Moderate sedation 27 minutes plus local. ESTIMATED BLOOD LOSS: 5 mL COMPLICATIONS: None. INDICATIONS: Mr. Barrie Li is a 41-year-old gentleman with history of septic shoulder requiring long-term IV antibiotics. The patient previously underwent a right tunneled IJ infusion catheter. This was removed due to concern for infection. Culture results from that line were negative. For this reason, he was recommended to undergo replacement of the tunneled infusion catheter. Risks, benefits and alternatives were discussed with the patient and he consented to the procedure. DESCRIPTION OF PROCEDURE: The patient was taken to the endovascular suite and placed in the supine position. The right IJ was assessed with ultrasound and appeared patent. The right neck and chest were prepped and draped in the usual sterile fashion. A safety timeout was performed and the patient, procedure and sidedness were correctly identified. Ultrasound was again used to identify the right IJ. Local anesthesia was used to anesthetize the skin overlying the right IJ. A right IJ was then accessed with an 18-gauge access needle under ultrasound. Guidewire easily passed through the needle and down into the inferior vena cava. Local anesthesia was then used to anesthetize the skin overlying the infraclavicular right chest up to the right IJ access site. An 11 blade scalpel was used to make a 1 cm incision several fingerbreadths below the right clavicle. This was also used to make a skin incision at the IJ access site. A Patten infusion catheter was tunneled from the infraclavicular incision to the IJ access site. A peelaway sheath was then advanced over the wire into the right IJ access site under fluoroscopy. The dilator and wire removed and the catheter was inserted into the peelaway sheath and the peelaway sheath removed. This was done after the catheter was cut to the appropriate length. Fluoroscopy was used to confirm positioning of the catheter. Catheter easily aspirated dark venous blood and was flushed with heparinized saline. The catheter was secured to the chest wall with nylon suture. The IJ access site was closed with a single interrupted 4-0 Vicryl suture. Dermabond skin glue was applied to the IJ access site. Surgical field was cleaned and dried and a sterile dressing was applied. The patient tolerated the procedure well and there were no immediate complications. Dr. Manuelito Ewing was present for the entire procedure.
--- NOTE | 2017-09-25 10:26 | Pharmacy Progress Note ---
Pharmacy Antibiotic Prog Note Date of Service Sep 25, 2017. Objective Height (Feet): 5 Height (Inches): 9.00 Weight (Kilograms): 99.100 Lab Results (24hrs): Test 09/25/17 03:30 Vancomycin Level Trough 22.5 mcg/ml (SEE COMMENT) Assessment & Plan Assessment * 41 yo M with bacteremia, likely source infected Patten catheter * Patten catheter removed on 09/19 2nd persistently positive blood cultures drawn from [facility] in setting of persistent fever. * Patient has been afebrile since removal and repeat blood cultures on 09/18 are negative (finalized). * Patten catheter re-inserted this AM * Cultures * 2/2 blood cultures on 09/15: Enterobacter cloacae * 1/2 blood culture (drawn from [facility]) on 09/16: Abiotrophia and alpha Strep ( not S. pneumo, Enterococcus) * 1/2 blood culture (drawn from [facility]) on 09/17: Abiotrophia * 2/2 blood cultures on 09/18: no growth - final * Antibiotics * Ertapenem day 10 (started 09/16) * Vancomycin day 5 (started 09/21) * Previously on daptomycin (09/15-09/20) * Previously on cefepime (09/15-09/20) * ID consult * Recommended continuing ertapenem and vancomycin * Renal * SCr stable and at baseline Vancomycin * Goal vancomycin trough 15-20 mcg/mL * Currently on vancomycin 1500 mg IV q10h (same dose since 09/21) * Trough trended up from 17.9 mcg/mL on 09/22 to 22.5 mcg/mL on 09/25 - will decrease dose * Vancomycin possibly to continue as outpatient - unfortunately patient will not be able to receive once-daily vancomycin and maintain adequate safety/ efficacy. However, will adjust regimen to be less cumbersome than current q10h interval Plan * Decrease vancomycin to 1500 mg IV q12h * Repeat trough 09/27 @ 0530 Pharmacy will continue to follow and will adjust dose/frequency as necessary. Thank you
[2017-09-25] MEDS ORDERED: NURSING VERBAL MED ORDER ONE (10:45)
[2017-09-25] MEDS: OXYCODONE HCL IR 5 MG TAB (IMMEDIATE RELEASE) PO PRN (10:56)
--- NOTE | 2017-09-25 11:36 | Progress Note ---
Subjective Date of Service: Sep 25, 2017. Subjective pt for muller cath today and d/c when abx set up for home. spoke with primary, will have last dose ertapenem and then outpt vanco. repeat blood cutlures negative and final. cath tip culture negative as well. Problem List Medical Problems: (1) Abscess of right arm Status: Acute (2) Cellulitis of shoulder Status: Acute (3) Cellulitis of shoulder Status: Acute (4) Fever Status: Acute (5) Hypokalemia Status: Acute (6) Hypotension Status: Acute (7) Infection of shoulder Status: Acute (8) Right arm cellulitis Status: Acute (9) Sepsis Status: Acute (10) Sepsis Status: Acute (11) Sepsis Status: Acute (12) Septic arthritis of shoulder, right Status: Acute (13) Septic joint of right shoulder region Status: Acute (14) Shoulder pain Status: Acute Objective Vital Signs Date Time Temp Pulse Resp B/P (MAP) Pulse Ox O2 Delivery O2 Flow Rate FiO2 09/25/17 10:52 36.9 84 16 107/70 (82) 94 Room Air 09/25/17 10:21 36.9 73 16 108/74 (85) 92 Room Air 09/25/17 09:55 36.9 72 16 114/73 (87) 94 Room Air 09/25/17 09:53 Room Air 09/25/17 09:40 37.0 67 18 95/60 (72) 94 Room Air 09/25/17 09:25 93 Room Air 09/25/17 09:25 37.0 65 18 111/69 (83) 93 Room Air 09/25/17 09:10 69 16 111/62 94 Room Air 4 09/25/17 09:05 61 16 118/73 96 Room Air 4 09/25/17 09:00 67 16 108/71 98 Oxymask 4 09/25/17 08:55 71 16 96 Oxymask 4 09/25/17 08:50 64 16 99 Oxymask 4 09/25/17 08:45 73 16 98 Oxymask 4 09/25/17 08:41 66 16 126/74 99 Oxymask 4 09/25/17 06:58 36.6 70 14 117/66 (83) 95 Room Air 09/24/17 23:46 Room Air 4/2/18 22:56 37.2 78 16 119/79 (92) 93 Room Air 09/24/17 19:55 Room Air 09/24/17 15:22 37.2 82 16 110/74 (86) 95 Room Air Laboratory Results Item Value Date Time Catheter Tip Culture - Final Complete 09/19/17 1358 Catheter Tip Central Venous Pressure Line NO GROWTH Blood Culture - Final Complete 09/18/17 1225 Blood NO GROWTH Blood Culture - Final Complete 09/18/17 1216 Blood NO GROWTH Blood Culture - Final Complete 09/16/17 0858 Blood Abiotrophia Species Last 24 Hours Test 09/25/17 03:30 Vancomycin Level Trough 22.5 mcg/ml Assessment and Plan (1) Sepsis Assessment & Plan: will continue with ertapenem, 2 weeks total. will change dapto to vanco and follow level maintain 15-20. will need weekly cbc,cmp. will need access, discussed with case management. will need 14 days vanco. (2) Infected venous access port
[2017-09-25] MEDS: ERTAPENEM IV 1,000 MG in SODIUM CHLORIDE 0.9% 50ML 50 ML IV SCH (13:20)
--- NOTE | 2017-09-25 14:08 | Progress Note ---
Medicine Progress Note Date & Time of Visit: Sep 25, 2017 at 13:59. Subjective Pt was seen and examined Standing in his room with no distress He just had patten cath placed this morning Pt is ready to home home Has not had a fever for almost 1 week Denies any chest pain, palpitation, dizziness and SOB Objective Last 8 Hrs Date Time Temp Pulse Resp B/P (MAP) Pulse Ox O2 Delivery O2 Flow Rate FiO2 09/25/17 13:19 37.1 90 16 118/79 (92) 95 Room Air 09/25/17 12:25 87 17 127/80 (96) 95 Room Air 09/25/17 11:25 84 17 143/74 (97) 96 Room Air 09/25/17 10:52 36.9 84 16 107/70 (82) 94 Room Air 09/25/17 10:21 36.9 73 16 108/74 (85) 92 Room Air 09/25/17 09:55 36.9 72 16 114/73 (87) 94 Room Air 09/25/17 09:53 Room Air 09/25/17 09:40 37.0 67 18 95/60 (72) 94 Room Air 09/25/17 09:25 93 Room Air 09/25/17 09:25 37.0 65 18 111/69 (83) 93 Room Air 09/25/17 09:10 69 16 111/62 94 Room Air 4 09/25/17 09:05 61 16 118/73 96 Room Air 4 09/25/17 09:00 67 16 108/71 98 Oxymask 4 09/25/17 08:55 71 16 96 Oxymask 4 09/25/17 08:50 64 16 99 Oxymask 4 09/25/17 08:45 73 16 98 Oxymask 4 09/25/17 08:41 66 16 126/74 99 Oxymask 4 09/25/17 06:58 36.6 70 14 117/66 (83) 95 Room Air Physical Exam: General- No acute distress Head- atraumatic Eyes- PERRL, EOMI ENT- oropharynx clear Neck- supple, no JVD Lungs- No wheezing Heart- regular rhythm Abdomen- normal bowel sounds, soft Extremities- no pretibial edema, right shoulder tenderness improved Neuro- alert, oriented x 3; PERRL, EOMI; no facial palsy Skin- warm & dry Laboratory Results: Last 24 Hours Test 09/25/17 03:30 Vancomycin Level Trough 22.5 mcg/ml Assessment & Plan This is a 41 year old M with recurrent right shoulder infections and multiple right shoulder surgeries who last admitted to [facility] in June 2017 with right shoulder abscess that had incision drainage by orthopedics with vancomycin and gentamicin beads placed and subsequent would cultures of grew MRSA and patient subsequently discharged on daptomycin IV, who presents with sepsis and right shoulder pain SEPSIS Meet sepsis criteria on admission with elevated WBC, tachycardia, febrile and elevated lactic acid Related to BACTEREMIA-Enterococcus cloacae (09/15) Repeat blood cx grew strep cocci (09/16) Repeat blood grew gram positive cocci (09/17) Patten catheter placed about 1yr and 8 months ago No drainage or erythema around the surrounding area of the catheter Afebrile today, Lactic acid and wbc normalized Will consult vascular for possible catheter removal CT abdomen and pelvis no focus of infection CT upper extremity no signs of abscess MRI of upper extremity no signs of abscess/osteo Blood cx collected today ID on board 09/20 Patten cath removed and sent for culture, no growth so far ID on board recommended to d/c cefepime Continue Daptomycin IV Day 6 and Ertapenem day 5 Repeat blood cx no growth has been afebrile 09/25 Clinically stable has been afebrile for almost 1 week Patten cath removed and sent for culture with no growth ID on board recommended to changed dapto to Vanco IV for 14 days on day#4 and maintain Vanco level 15-20 Continue Ertapenem to complete 2 weeks course on day#8 case discussed with cardio and reviewed echo again. No indication for echo since that will not climate change risk assessor because pt will be on fdc IV abx Case discussed with vascular surgery Dr. Ewing, and Patten cath placed today Will need IV abx infusion as outpatient (case management already arranged) Will need weekly cbc and cmp while on abx Case discussed with ID (Pt already had a follow up with ID) Echo done. * -- Conclusions -- * The left ventricle is normal in size. * There is normal left ventricular wall thickness. * The left ventricular wall motion is normal. * Left ventricular systolic function is normal. * Ejection Fraction = 65-70%. * No valvular abnormalities are visualized * There is no pericardial effusion. RECURRENT RIGHT SHOULDER INFECTION CT upper extremity no infection MRI upper extremity no infection Orthopedic service consulted no plans for surgical intervention F/U w/ Dr Byrd as outpatient in 2-3 weeks HISTORY OF ANAL FISTULAS CT abdomen pelvis no acute process Denies any symptoms of rectal bleeding, pain, change in bowel movement Stable HYPOKALEMIA K 3.8 monitor BMP stable ACUTE RENAL FAILURE Likely from sepsis possibly prerenal etiology Creatine WNL Resolved PAIN MANAGEMENT Continue to have pain Oxycodone immediate release every 6 hours as needed for pain Toradol as needed Ofirmev IV 650 q. 8 as needed DVT px on SCD CODE STATUS FULL CODE Disposition Anticipate discharge to home when medically stable cleared by ID Will need to complete 2 weeks of IV vanco and ertapenem course Consultants: vascular surgery cardio Ortho ID Current Inpatient Medications: Current Inpatient Medications Medications (Trade) Dose Ordered Sig/Diane Route Start Time Stop Time Status Last Admin Dose Admin Acetaminophen (Tylenol Tab) 650 mg Q4H PRN PO 09/15/17 06:30 10/15/17 06:29 09/17/17 21:55 650 MG Senna (Senokot Tab) 8.6 mg QAM PO 09/15/17 09:00 10/15/17 08:59 09/18/17 08:23 8.6 MG Docusate Sodium (coLACE CAP) 100 mg BID PO 09/15/17 09:00 10/15/17 08:59 09/18/17 08:22 100 MG Ondansetron HCl (Zofran Inj) 4 mg Q6H PRN IV 09/15/17 07:00 10/15/17 06:59 09/18/17 00:42 4 MG Oxycodone HCl (Roxicodone Immediate Rel Tab) 10 mg Q6H PRN PO 09/15/17 09:15 09/29/17 09:14 09/25/17 10:56 10 MG Magnesium Oxide (Mag-Ox Tab) 400 mg BID PO 09/16/17 21:00 10/16/17 20:59 09/24/17 20:24 400 MG Ertapenem (Consult) 1 ea UD PRN N/A 09/16/17 19:15 10/16/17 19:14 Ertapenem 1000 mg/ Sodium Chloride 60 ml @ 100 mls/hr Q24H IV 09/16/17 20:00 09/30/17 19:59 09/25/17 13:20 100 MLS/HR Acetaminophen 100 ml @ 400 mls/hr Q8H PRN IV 09/17/17 23:45 10/17/17 23:44 Miscellaneous Information (Consult) 1 ea UD PRN N/A 09/21/17 11:45 10/21/17 11:44 Diphenhydramine HCl (Benadryl Cap) 25 mg Q6H PRN PO 09/24/17 00:45 10/23/17 15:14 09/24/17 18:37 25 MG Vancomycin HCl 1500 mg/Sodium Chloride 530 ml @ 200 mls/hr Q12H IV 09/25/17 18:00 10/05/17 11:59
[2017-09-25] MEDS ORDERED: ERTA1INJ IV (14:20)
[2017-09-25] MEDS ORDERED: VANC500I IV (14:20)
[2017-09-25] MEDS ORDERED: RXC5 PO ×2 (14:20→14:32)
--- NOTE | 2017-09-25 14:29 | Discharge Instructions ---
Discharge Instructions Date of Service Sep 25, 2017. Admission Reason for Admission: History Of Mrsa Infection, Right Shoulder Pain Discharge Discharge Diagnosis / Problem: RECURRENT RIGHT SHOULDER INFECTION, SEPSIS Discharge Goals Goal(s): Decrease discomfort, Improve function, Improve disease control Activity Recommendations Activity Limitations: resume your previous activity (as tolerated) . Instructions / Follow-Up Instructions / Follow-Up Follow up with infectious disease (already had an appointment) Follow up with Orthopedic Dr. Charles in 2 weeks Advised patient to chose a primary care provider for routine medical care. Continue IV Vancomycin and Ertapenem Infusion as an outpatient Check Vanco level and maintain level between 15-20. You will need weekly cbc, cmp. Please hold narcotic if you develop drowsiness Please do not drive or operate any machine after taking the narcotic (Percocet) Current Hospital Diet Patient's current hospital diet: Regular Diet Discharge Diet Recommended Diet: Regular Diet Procedures Procedures Performed: Patten Insertion Right Jugular Approach Ultrasound Localization Right Jugular Vein Fluoroscopy for Postioning Moderate Sedation [id number] Pending Studies Studies pending at discharge: no Medical Emergencies . Who to Call and When: Medical Emergencies: If at any time you feel your situation is an emergency, please call 911 immediately. . Non-Emergent Contact Non-Emergency issues call your: Specialist (Orthopedic and Infectious Disease) Call Non-Emergent contact if: temperature is above 101, your pain is not controlled, your pain is worsening, wound has increased drainage, wound has increased redness . . "Provider Documentation" section prepared by Brigid Wolff. . [place] Drug Monitoring Program Search Results: patient reviewed within database
[2017-09-25] MEDS ORDERED: VANCOMYCIN IV 1,500 MG in SODIUM CHLORIDE 0.9% 500ML 500 ML IV SCH (18:00)
[2017-09-27] MEDS ORDERED: VANCOMYCIN TROUGH ONE (05:30)
--- NOTE | 2017-09-28 00:07 | Discharge Summary ---
Discharge Summary Date of Service Sep 27, 2017. Discharge Summary Admission Date: Sep 15, 2017 at 06:08 Discharge Date: Sep 25, 2017 Discharge Disposition: Home Principal Diagnosis: SEPSIS Secondary Diagnoses/Problems: RECURRENT RIGHT SHOULDER INFECTION HISTORY OF ANAL FISTULA ACUTE RENAL FAILURE PAIN MANAGEMENT HYPOKALEMIA Procedures: R UPPER EXT JOINT WITHOUT CLINICAL HISTORY: sepsis, history of right shoulder abscess and infections TECHNIQUE: MRI multi axial acquisition COMPARISON STUDY: 09/19/2016 FINDINGS: Transaxial images demonstrate considerable improvement of the small pockets of fluid described previously. They appear to completely resolved. There is a minimal amount of subcutaneous edematous change. Signal characteristics of the bony structures show no significant bone marrow replacing process. Muscular structures appear grossly unremarkable in terms of signal character. Rotator cuff shows moderate degenerative change. Moderate supraspinatus tendinopathy is present. There does not appear to be evidence for full-thickness rotator cuff tear. There is moderate degenerative changes of the articular services of the glenohumeral joint. There continues to be considerable substance loss the glenoid labrum the complex tear present described appear to improved compared to the prior study. Infraspinatus and subscapularis tendons are intact. Bicipital groove is poorly seen in this exam. There are degenerative changes posterior lateral aspect humeral head most likely consistent with a Hill-Sachs type deformity. IMPRESSION: 1. Degenerative change of the glenohumeral joint with evidence for postoperative changes to the soft tissues lateral to the humerus. 2. The previously described complex fluid collections on the prior study of 2016 have resolved. 3. Minimal residual edematous and/or infiltrative changes of the subcutaneous fat lateral to the deltoid. 4. No evidence for abscess or collection. 5. No evidence for osteomyelitis. The above report was generated using voice recognition software. It may contain grammatical, syntax or spelling errors. Electronically signed by: Natanael Wilson M.D. 09/15/2017 11:29 AM Dictated Date/Time: 09/15/2017 11:25 AM [~ rep ct add3]] ABD/PELVIS NO IV OR ORAL CONT CT DOSE: 1004.88 mGy.cm HISTORY: Pain. Nausea. n/v, s/p rectal surgery TECHNIQUE: Multiaxial CT images of the abdomen and pelvis were performed without contrast. A dose lowering technique was utilized adhering to the principles of ALARA. COMPARISON STUDY: 12/22/2016 FINDINGS: Lung bases are clear. Liver spleen and pancreas are unremarkable. The spleen remains slightly prominent which is unchanged from prior study. Bilateral nonobstructing nephrocalcinosis. This is similar compared to the prior study. The bowel pattern within the abdomen is nonobstructive. No evidence for abscess collection or obstruction. No evidence for pneumatosis or free air. Normal appendix. Bladder is midline. No free fluid within the pelvic cul-de-sac. IMPRESSION: 1. Bilateral stable nonobstructing nephrocalcinosis. 2. Stable borderline splenomegaly. 3. Otherwise negative study. The above report was generated using voice recognition software. It may contain grammatical, syntax or spelling errors. Electronically signed by: Naatnael Wilson M.D. 09/15/2017 5:54 AM Dictated Date/Time: 09/15/2017 5:51 AM R UPPER EXTREMITY WITHOUT CT DOSE: 1009.56 mGy.cm HISTORY: Pain pain, hx osteo TECHNIQUE: Multiaxial CT images of the right shoulder were performed and reformatted in the sagittal and coronal plane without the use of contrast. A dose lowering technique was utilized adhering to the principles of ALARA. COMPARISON: None. FINDINGS: Mild soft tissue infiltrative change combined with mild skin thickening. Given the patient's history this is most likely based on a postoperative standpoint. Moderate degenerative change glenohumeral joint. Mild Hill-Sachs type deformity posterior lateral aspect humeral head. No evidence for bony destructive process. No significant joint effusion. IMPRESSION: 1. Moderate degenerative change right shoulder 2. No acute bony abnormality. 3. Soft tissue changes most likely postoperative. 4. Interstitial prominence the right hemithorax. The above report was generated using voice recognition software. It may contain grammatical, syntax or spelling errors. Electronically signed by: Natanael Wilson M.D. 09/15/2017 6:38 AM Dictated Date/Time: 09/15/2017 6:36 AM CHEST ONE VIEW PORTABLE CLINICAL HISTORY: fever dyspnea COMPARISON STUDY: 07/03/2017 FINDINGS: Central catheter in the right atrium. Lungs are clear. Diaphragms are smooth. No significant cardiac enlargement. IMPRESSION: No acute process. The above report was generated using voice recognition software. It may contain grammatical, syntax or spelling errors. Electronically signed by: Natanael Wilson M.D. 09/15/2017 6:31 AM Dictated Date/Time: 09/15/2017 6:30 AM ECHO Interpretation Summary * Name: ODALYS GALVEZ Study Date: 09/15/2017 01:50 PM BP: 111/71 mmHg * Patient [place]: [facility] [place]S\\[id number]\\[id number]\\[id number] HR: 90 * : 1975 (M/d/yyyy) Gender: Male Height: 69 in * Age: 41 yrs Ethnicity: [place] Weight: 212 lb * Ordering Physician: Valentín Garcia * Referring Physician: Self, Referred * Performed By: Oscar Neumann RDCS * * Reason For Study: Endocarditis? * BSA: 2.1 m2 * -- Conclusions -- * The left ventricle is normal in size. * There is normal left ventricular wall thickness. * The left ventricular wall motion is normal. * Left ventricular systolic function is normal. * Ejection Fraction = 65-70%. * No valvular abnormalities are visualized * There is no pericardial effusion. Procedure Details * A complete two-dimensional transthoracic echocardiogram was performed (2D, M- mode, Doppler and color flow Doppler). * The study was technically adequate. Left Ventricle * The left ventricle is normal in size. * There is normal left ventricular wall thickness. * Left ventricular systolic function is normal. * Ejection Fraction = 65-70%. * The left ventricular wall motion is normal. Right Ventricle * The right ventricle is normal in size and function. Atria * The left atrial size is normal. * Right atrial size is normal. * No ASD detected; PFO is not assessed. Mitral Valve * The mitral valve anatomy is normal. * There is no mitral valve stenosis. * There is trace mitral regurgitation. Tricuspid Valve * The tricuspid valve anatomy is normal. * There is no tricuspid stenosis. * There is trace tricuspid regurgitation. Aortic Valve * The aortic valve is trileaflet. * No hemodynamically significant valvular aortic stenosis. * No aortic regurgitation is present. Pulmonic Valve * The pulmonic valve is not well visualized. * There is no pulmonic valvular regurgitation. Great Vessels * The aortic root is normal size. Pericardium/Pleural * There is no pericardial effusion. Great Vessels * Normal inferior vena cava diameter and respiratory variation suggests normal central venous pressure. Consultations: vascular surgery cardio Ortho ID Medication Reconciliation New Medications: Ertapenem Sodium (Invanz) 1 Gm Inj 1 GM IV Q24H for 5 Days, VIAL Vancomycin Hcl In Dextrose (Vancomycin Hcl In Dextros) 1 Inj Inj 1.5 GM IV Q12 for 9 Days Continued Medications: Oxycodone HCl (Oxycodone HCl) 5 Mg Tab 5 MG PO Q12 PRN for severe pain, #8 TAB (This prescription has been renewed) Hold for lethargy and drowsiness Discontinued Medications: Daptomycin (Daptomycin) 500 Mg Inj 400 MG IV DAILY for 34 Days, #34 DOSE Tentative stop date 08/14/17. Stop date to be confirmed by ID. Admission Information HPI (per Admitting provider): This is a 41 year old M with recurrent right shoulder infections and multiple right shoulder surgeries who last admitted to [facility] in June 2017 with right shoulder abscess that had incision drainage by orthopedics with vancomycin and gentamicin beads placed and subsequent would cultures of grew MRSA and patient subsequently discharged on daptomycin IV through his chest port line Since that discharge patient has continued to follow with Dr. Byrd of orthopedics and Dr. Bailey from infectious disease service. Patient reports that he has been off daptomycin and has been on an oral antibiotic that starts with the letter B (possibly Bactrim???) Patient also seeing surgical physician at [facility] for anal fistula which required some cleaning procedure 2 to 3 weeks ago. Patient's acute symptoms of fever began at the night time on 09/14/17. On arrival to ED was febrile 39.4 C (102.9 F), tachycardic, with leukocytosis of 12 ,000 and meeting criteria for sepsis, lactic acid 2.3. ED physician started patient on IV fluids and had peripheral blood culture and blood culture from chest port line. Patient also have acute right shoulder pain with the septic symptoms. Also reports left flank pain. Patient had CT scan of right shoulder that did not find evidence for abscess. CT abdomen showed bilateral nephrolithiasis without evidence for obstruction. UA was negative Physical Exam (per Admitting): General Appearance: + pertinent finding (standing up and leaning on bed in pain) Head: normocephalic, atraumatic Eyes: normal inspection, EOMI, sclerae normal ENT: normal ENT inspection, hearing grossly normal, pharynx normal Neck: supple, no JVD, trachea midline Respiratory/Chest: chest non-tender, lungs clear, normal breath sounds, no respiratory distress, no accessory muscle use, + pertinent finding (chest port) Cardiovascular: no edema, no JVD, no murmur, + tachycardia Abdomen/GI: normal bowel sounds, non tender, soft, no organomegaly Genitourinary - Male: + pertinent finding (rectal exam without superficial skin fissures) Back: normal inspection, normal range of motion, + left CVA tenderness Extremities/Musculoskelatal: + pertinent finding (chronic right shoulder deformities, no fluctuance palpable) Neurologic/Psych: alert, oriented x 3 Skin: normal color, warm/dry, no rash Hospital Course This is a 41 year old M with recurrent right shoulder infections and multiple right shoulder surgeries who last admitted to [facility] in June 2017 with right shoulder abscess that had incision drainage by orthopedics with vancomycin and gentamicin beads placed and subsequent would cultures of grew MRSA and patient subsequently discharged on daptomycin IV, who presents with sepsis and right shoulder pain SEPSIS Meet sepsis criteria on admission with elevated WBC, tachycardia, febrile and elevated lactic acid Related to BACTEREMIA-Enterococcus cloacae (09/15) Repeat blood cx grew strep cocci (09/16) Repeat blood grew gram positive cocci (09/17) Patten catheter placed about 1yr and 8 months ago No drainage or erythema around the surrounding area of the catheter Afebrile today, Lactic acid and wbc normalized Will consult vascular for possible catheter removal CT abdomen and pelvis no focus of infection CT upper extremity no signs of abscess MRI of upper extremity no signs of abscess/osteo Blood cx collected today ID on board 09/20 Patten cath removed and sent for culture, no growth so far ID on board recommended to d/c cefepime Continue Daptomycin IV Day 6 and Ertapenem day 5 Repeat blood cx no growth has been afebrile / Clinically stable has been afebrile for almost 1 week Patten cath removed and sent for culture with no growth ID on board recommended to changed dapto to Vanco IV for 14 days on day#4 and maintain Vanco level 15-20 Continue Ertapenem to complete 2 weeks course on day#8 case discussed with cardio and reviewed echo again. No indication for echo since that will not change attendant because pt will be on nursing home IV abx Case discussed with vascular surgery Dr. Ewing, and Patten cath placed today Will need IV abx infusion as outpatient (case management already arranged) Will need weekly cbc and cmp while on abx Case discussed with ID (Pt already had a follow up with ID) Echo done. * -- Conclusions -- * The left ventricle is normal in size. * There is normal left ventricular wall thickness. * The left ventricular wall motion is normal. * Left ventricular systolic function is normal. * Ejection Fraction = 65-70%. * No valvular abnormalities are visualized * There is no pericardial effusion. RECURRENT RIGHT SHOULDER INFECTION CT upper extremity no infection MRI upper extremity no infection Orthopedic service consulted no plans for surgical intervention F/U w/ Dr Byrd as outpatient in 2-3 weeks HISTORY OF ANAL FISTULA CT abdomen pelvis no acute process Denies any symptoms of rectal bleeding, pain, change in bowel movement Stable HYPOKALEMIA K 3.8 monitor BMP stable ACUTE RENAL FAILURE Likely from sepsis possibly prerenal etiology Creatine WNL Resolved PAIN MANAGEMENT Continue to have pain Oxycodone immediate release every 6 hours as needed for pain Toradol as needed Ofirmev IV 650 q. 8 as needed DVT px on SCD CODE STATUS FULL CODE Disposition Anticipate discharge to home when medically stable cleared by ID Will need to complete 2 weeks of IV vanco and ertapenem course Total time spent on discharge = 35 minutes This includes examination of the patient, discharge planning, medication reconciliation, and communication with other providers. Discharge Instructions Discharge Instructions Date of Service Sep 25, 2017. Admission Reason for Admission: History Of Mrsa Infection, Right Shoulder Pain Discharge Discharge Diagnosis / Problem: RECURRENT RIGHT SHOULDER INFECTION, SEPSIS Discharge Goals Goal(s): Decrease discomfort, Improve function, Improve disease control Activity Recommendations Activity Limitations: resume your previous activity (as tolerated) . Instructions / Follow-Up Instructions / Follow-Up Follow up with infectious disease (already had an appointment) Follow up with Orthopedic Dr. Charles in 2 weeks Advised patient to chose a primary care provider for routine medical care. Continue IV Vancomycin and Ertapenem Infusion as an outpatient Check Vanco level and maintain level between 15-20. You will need weekly cbc, cmp. Please hold narcotic if you develop drowsiness Please do not drive or operate any machine after taking the narcotic (Percocet) Current Hospital Diet Patient's current hospital diet: Regular Diet Discharge Diet Recommended Diet: Regular Diet Procedures Procedures Performed: Patten Insertion Right Jugular Approach Ultrasound Localization Right Jugular Vein Fluoroscopy for Postioning Moderate Sedation [id number] Pending Studies Studies pending at discharge: no Medical Emergencies . Who to Call and When: Medical Emergencies: If at any time you feel your situation is an emergency, please call 911 immediately. . Non-Emergent Contact Non-Emergency issues call your: Specialist (Orthopedic and Infectious Disease) Call Non-Emergent contact if: temperature is above 101, your pain is not controlled, your pain is worsening, wound has increased drainage, wound has increased redness . . "Provider Documentation" section prepared by Brigid Wolff. . [place] Drug Monitoring Program Search Results: patient reviewed within database Signed: Signed: The status of this report is Draft * If report status is Draft, the document has not been finalized by the responsible provider. Additional Copies To Kenan Byrd M.D. Patterson, Jennifer., DJessieO.
== END 2017-09-25 15:50 | disposition home or self-care (01) | DRG 854 ==
LOC: C.EDB 01:01 → C.2E 06:08 → ENRESERV 06:30 → EDBEDREQSVC 09-20 10:14 → ENRESERV 09-20 11:01 → C.MSW 09-20 11:36
PROVIDERS: ADMIT Hospitalist; ATTEND Internal Medicine
PROC: 0JPT3XZ Removal of Tunneled Vascular Access Device from Trunk Subcutaneous Tissue and Fascia, Percutaneous Approach (ICD-10-PCS; principal; 2017-09-19 11:15)
PROC: 06H03DZ Insertion of Intraluminal Device into Inferior Vena Cava, Percutaneous Approach (ICD-10-PCS; 2017-09-25)
DX: A41.81 Sepsis due to Enterococcus (principal); N17.9 Acute kidney failure, unspecified; L03.113 Cellulitis of right upper limb; R65.20 Severe sepsis without septic shock; E87.6 Hypokalemia; R10.9 Unspecified abdominal pain; G62.9 Polyneuropathy, unspecified; Z79.2 Long term (current) use of antibiotics; Z88.1 Allergy status to other antibiotic agents; Z88.5 Allergy status to narcotic agent; Z91.041 Radiographic dye allergy status; Z86.14 Personal history of Methicillin resistant Staphylococcus aureus infection

== ENCOUNTER → 2017-10-03 | Outpatient (CLI) | payer OTHER ==
[~2017-10-03] MED LIST changes: -DAPT500I IV; +VANC500I IV
[2017-10-03 16:40] LABS: BASO % 0.7 %; BASO ABS # 0.06 K/uL (0-0.2); EOS % 3.5 %; EOS ABS # 0.29 K/uL (0-0.5); HEMATOCRIT 45.3 % (42-52); IG# 0.01 K/uL (0.00-0.02); LYMPH % 28.5 %; LYMPH ABS # 2.34 K/uL (1.2-3.4); MEAN CELL VOLUME 82.1 fL (80-100); MEAN CORPUSCULAR HEMOGLOBIN 27.2 pg (25-34); MEAN CORPUSCULAR HGB CONC 33.1 g/dl (32-36); MEAN PLATELET VOLUME 10.2 fL (7.4-10.4); MONO % 6.6 %; MONO ABS # 0.54 K/uL (0.11-0.59); NEUT % 60.6 %; NEUT ABS # 4.97 K/uL (1.4-6.5); PLATELET COUNT 329 K/uL (130-400); RED CELL DISTRIBUTION WIDTH CV 14.7 % (11.5-14.5); RED CELL DISTRIBUTION WIDTH SD 44.8 fL (36.4-46.3); WHITE BLOOD COUNT 8.21 K/uL (4.8-10.8)
[2017-10-03 17:12] LABS: ALBUMIN 3.7 gm/dl (3.4-5.0); ALT/SGPT 90 U/L (12-78); AST/SGOT 43 U/L (15-37); BLOOD UREA NITROGEN 14 mg/dl (7-18); CALCIUM 8.8 mg/dl (8.5-10.1); CARBON DIOXIDE 23 mmol/L (21-32); CREATININE 1.07 mg/dl (0.60-1.40); GLUCOSE 88 mg/dl (70-99); POTASSIUM 4.3 mmol/L (3.5-5.1); SODIUM 136 mmol/L (136-145)
[2017-10-03 17:14] LABS: ALKALINE PHOSPHATASE 143 U/L (45-117); TOTAL PROTEIN 8.3 gm/dl (6.4-8.2)
== END | disposition home or self-care (01) ==
LOC: C.LABPBG 12:38
PROVIDERS: ATTEND Internal Medicine Infectious Disease
DX: M00.9 Pyogenic arthritis, unspecified (principal)